=== PATIENT | male | born 1940 | race Caucasian/White ===

== ENCOUNTER 2016-12-21 13:39 | Inpatient (IN) | payer MEDICARE ==
[~2016-12-21] VITALS: Ht 175.3 cm; Wt 88.5 kg
[~2016-12-21 13:39] MED LIST: AMLO5TAB2 PO; ASPI-586 PO; ENAL10TA PO; FISH1CAP15 PO; METF500T4 PO; METO100T2 PO; MULT-63 PO; OMEP20CA12 PO; SIMV40TA4 PO
--- OUTSIDE RECORDS SUMMARY | 2016-12-21 13:45 | XMS REPORT | Continuity of Care Document ---
Author Author [facility] Organization [facility] Address Unknown Phone Unavailable Allergies Active Description Code Type Severity Reaction Onset Reported/Identified Relationship to Patient Clinical Status Yes nitroglycerin [id number] Drug Allergy Unknown N/A 02/09/2015 Yes Penicillins [id number] Drug Allergy Unknown N/A 02/09/2015 Medications Problems Date Dx Coded Attending Type Code Diagnosis Diagnosed By 02/09/2015 Ot 414.01 02/09/2015 Ot 433.10 02/09/2015 Ot 414.01 02/09/2015 Ot 433.10 02/10/2015 MONIQUE AN FACC, ALI FACP CCDS Ot 250.00 DIAB DENNIS WO COMPL, TYPE II OR UNSPEC TY 02/10/2015 MONIQUE AN FACC, ALI FACP CCDS Ot 272.4 HYPERLIPIDEMIA NEC/NOS 02/10/2015 MONIQUE AN FACC, ALI FACP CCDS Ot 305.1 TOBACCO USE DISORDER 02/10/2015 MONIQUE AN FACC, RALPH FACP CCDS Ot 401.9 HYPERTENSION NOS 02/10/2015 MONIQUE AN FACC, ALI FACP CCDS Ot 414.00 CORON ATHEROSCLER NOS TYPE VESSEL, NATIV 02/10/2015 MONIQUE AN FACC, ALI FACP CCDS Ot 433.10 CAROTID ARTERY OCCLUSION W O CEREBRAL IN 02/10/2015 MONIQUE AN FACC, RALPH FACP CCDS Ot 530.81 ESOPHAGEAL REFLUX 02/10/2015 MONIQUE AN FACC, RALPH FACP CCDS Ot 782.4 JAUNDICE NOS 02/10/2015 MONIQUE AN FACC, RALPH FACP CCDS Ot 786.59 CHEST PAIN NEC 02/10/2015 MONIQUE AN FACC, RALPH FACP CCDS Ot V45.81 AORTOCORONARY BYPASS 02/25/2016 Ot 414.01 CORONARY ATHEROSCLEROSIS OF [place] CORON 02/25/2016 Ot 433.10 CAROTID ARTERY OCCLUSION W O CEREBRAL IN 03/02/2016 EDUIN AN, KHANG Sierra Ot F17.200 NICOTINE DEPENDENCE, UNSPECIFIED, UNCOMP 03/02/2016 KHANG DENNY MD Ot R05 COUGH 03/22/2016 KHANG DENNY MD Ot F17.200 NICOTINE DEPENDENCE, UNSPECIFIED, UNCOMP 03/22/2016 KHANG DENNY MD Ot R05 COUGH 03/28/2016 KHANG DENNY MD Ot F17.200 NICOTINE DEPENDENCE, UNSPECIFIED, UNCOMP 03/28/2016 KHANG DENNY MD Ot R05 COUGH Procedures Results Encounters ACCT No. Visit Date/Time Discharge Status Pt. Type Provider Facility Loc./Unit Complaint [id number] 02/09/2015 14:22:00 2014 11:45:00 DIS Inpatient MONIQUE AN FACC, RALPH BOX CCDS [facility] CSD CHEST PAIN HYPERTENSIVE URGENCY [id number] 02/25/2016 09:32:00 ACT Outpatient KHANG DENNY MD [facility] RAD CHRONIC SMOKER/COUGH [id number] 02/09/2015 14:22:00 Document Registration [id number] 01/03/2011 12:44:00 Document Registration
[2016-12-21] MEDS ORDERED: ASPIRIN 81 MG CHEW (CHILDREN'S ASA) ONE (13:58)
[2016-12-21] MEDS ORDERED: morphine INJ 10 MG/ML 1ML (SYR OR VIAL) IVP STA (14:13)
[2016-12-21] MEDS ORDERED: ASPIRIN 81 MG CHEW (CHILDREN'S ASA) PO ONE (14:15)
--- NOTE | 2016-12-21 14:18 | ED Chest Pain ---
General Chief Complaint: Chest Pain Stated Complaint: CHEST PAIN Source: patient History of Present Illness Time seen by provider: 14:00 Initial Comments PT ARRIVES VIA POV FROM HOME C/O MID CHEST PAIN SINCE 11:30 TODAY, BUT HAS BEEN WORSE SINCE NOON PAIN BEGAN WHILE SITTING, AND WAXES AND WANES BUT NEVER GOES AWAY COMPLETELY PAIN WAS 7/10 EARLIER, IS 2 1/2 / 10 NOW. NO SHORTNESS OF BREATH NO PALPITATIONS NO NAUSEA/VOMITING NO SWELLING IN LEGS/ FEET OR PAIN IN CALVES + SWEATS DID TAKE A 4 HOUR CAR RIDE TO [place] A COUPLE OF WEEKS AGO PT HAS HISTORY OF 5 VESSEL CABG SEVERAL YEARS AGO LAST STRESS TEST OVER A YEAR AGO PCP: DR. DENNY-IN PROCESS OF SWITCHING TO DR. CARTER DIRECTOR OF CLINICAL APPLICATIONS: DR. AMAYA Allergies and Home Medications Allergies Coded Allergies: Penicillins (Verified Allergy, Unknown, 02/09/15) nitroglycerin (Verified Allergy, Unknown, 02/09/15) Home Medications Amlodipine Besylate 5 Mg Tablet, 5 MG PO DAILY, #90 (Reported) Aspirin 81 Mg Tablet.dr, 81 MG PO HS, (Reported) Enalapril Maleate 10 Mg Tablet, 10 MG PO BID, #60 (Reported) Fish Oil/Dha/Epa 1 Each Capsule, 1,200 MG PO BID, (Reported) Metformin HCl 500 Mg Tablet, 500 MG PO BID, #180 (Reported) Metoprolol Tartrate 100 Mg Tablet, 100 MG PO BID, #180 (Reported) Multivitamin 1 Each Tab.chew, 1 TAB PO DAILY, (Reported) Omeprazole 20 Mg Capsule.dr, 20 MG PO DAILY, #90 (Reported) Review of Systems Constitutional: see HPI, diaphoresis EENTM: No Symptoms Reported Respiratory: No Symptoms Reported Cardiovascular: See HPI, Chest Pain, Denies Edema, Denies Lightheadedness, Denies Palpitations, Denies Syncope Gastrointestinal: No Symptoms Reported Genitourinary: No Symptoms Reported Musculoskeletal: no symptoms reported Skin: no symptoms reported Psychiatric/Neurological: No Symptoms Reported Endocrine: No Symptoms Reported Hematologic/Lymphatic: No Symptoms Reported Past Ymhfdzz-Kxbvvh-Qhsabj Hx Patient Social History Alcohol Use: Regular Use (DAILY USE) Recreational Drug Use: No Smoking Status: Current Everyday Smoker (SMOKES CIGARS) Type Used: Cigars Immunizations Up To Date Tetanus Booster (TDap): Unknown Date of Pneumonia Vaccine: Mar 25, 2013 Surgeries HX Surgeries: Yes Surgeries: Cardiac, CABG, Gallbladder Respiratory Hx Respiratory Disorders: No Cardiovascular Hx Cardiac Disorders: Yes Cardiac Disorders: Coronary Artery Disease, Heart Attack, High Cholesterol, Hypertension Neurological Hx Neurological Disorders: No Reproductive System Hx Reproductive Disorders: No Sexually Transmitted Disease: Yes HIV/AIDS: No Genitourinary Hx Genitourinary Disorders: Yes (only has one kidney from ) Gastrointestinal Hx Gastrointestinal Disorders: Yes Gastrointestinal Disorders: Gastroesophageal Reflux Musculoskeletal Hx Musculoskeletal Disorders: No Endocrine Hx Endocrine Disorders: Yes Endocrine Disorders: Diabetes, Non-Insulin dep HEENT HX ENT Disorders: Yes HEENT Disorders: Cataract Loss of Vision: Denies Hearing Impairment: Denies Cancer Hx Cancer: No Psychosocial Hx Psychiatric Problems: No Integumentary HX Skin/Integumentary Disorder: No Blood Transfusions Hx Blood Disorders: No Adverse Reaction to a Blood Tr: No Family Medical History Family Medial History: FH: COPD (chronic obstructive pulmonary disease) 19 FATHER Myocardial infarction 19 MOTHER Physical Exam Vital Signs Vital Sign - Last 12Hours 12/21/16 12/21/16 13:39 14:00 Temp 98.2 Pulse 99 Resp 15 B/P (MAP) 192/108 Pulse Ox 94 O2 Delivery Room Air O2 Flow Rate 2.50 FiO2 97 Capillary Refill : General Appearance: No Apparent Distress, WD/WN, Other (REEKS OF TOBACCO) Neck: Full Range of Motion, Normal Inspection, Non Tender, Supple, No Carotid Bruit, No JVD Respiratory: Chest Non Tender, Normal Breath Sounds, No Accessory Muscle Use, No Respiratory Distress Cardiovascular: Regular Rate, Rhythm, No Edema, No JVD, No Murmur, Normal Peripheral Pulses Gastrointestinal: Normal Bowel Sounds, No Organomegaly, No Pulsatile Mass, Non Tender, Soft Extremity: Normal Capillary Refill, Normal Inspection, Normal Range of Motion, Non Tender, No Calf Tenderness, No Pedal Edema Neurologic/Psychiatric: Alert, Oriented x3, No Motor/Sensory Deficits, Normal Mood/Affect, 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 Norm as Tested Skin: Normal Color, Warm/Dry Progress/Results/Core Measures Results/Orders Lab Results Laboratory Tests Test 12/21/16 13:56 Range/Units White Blood Count 10.8 4.3-11.0 10^3/uL Red Blood Count 4.44 4.35-5.85 10^6/uL Hemoglobin 15.0 13.3-17.7 G/DL Hematocrit 41 40-54 % Mean Corpuscular Volume 92 80-99 FL Mean Corpuscular Hemoglobin 34 25-34 PG Mean Corpuscular Hemoglobin Concent 37 H 32-36 G/DL Red Cell Distribution Width 12.9 10.0-14.5 % Platelet Count 207 130-400 10^3/uL Mean Platelet Volume 10.2 7.4-10.4 FL Neutrophils (%) (Auto) 67 42-75 % Lymphocytes (%) (Auto) 23 12-44 % Monocytes (%) (Auto) 8 0-12 % Eosinophils (%) (Auto) 2 0-10 % Basophils (%) (Auto) 0 0-10 % Neutrophils # (Auto) 7.3 1.8-7.8 X 10^3 Lymphocytes # (Auto) 2.4 1.0-4.0 X 10^3 Monocytes # (Auto) 0.9 0.0-1.0 X 10^3 Eosinophils # (Auto) 0.2 0.0-0.3 10^3/uL Basophils # (Auto) 0.0 0.0-0.1 10^3/uL Prothrombin Time 12.7 12.2-14.7 SEC INR Comment 1.0 0.8-1.4 Activated Partial Thromboplast Time 30 24-35 SEC Sodium Level 138 135-145 MMOL/L Potassium Level 3.6 3.6-5.0 MMOL/L Chloride Level 101 98-107 MMOL/L Carbon Dioxide Level 25 21-32 MMOL/L Anion Gap 12 5-14 MMOL/L Blood Urea Nitrogen 13 7-18 MG/DL Creatinine 1.15 0.60-1.30 MG/DL Estimat Glomerular Filtration Rate > 60 BUN/Creatinine Ratio 11 Glucose Level 289 H 70-105 MG/DL Calcium Level 9.1 8.5-10.1 MG/DL Magnesium Level 1.4 L 1.8-2.4 MG/DL Total Bilirubin 1.3 H 0.1-1.0 MG/DL Aspartate Amino Transf (AST/SGOT) 43 H 5-34 U/L Alanine Aminotransferase (ALT/SGPT) 36 0-55 U/L Alkaline Phosphatase 76 40-136 U/L Total Creatine Kinase 83 30-200 U/L Creatine Kinase MB 1.7 <6.6 NG/ML Troponin I < 0.30 <0.30 NG/ML B-Type Natriuretic Peptide 93.4 <100.0 PG/ML Total Protein 7.6 6.4-8.2 GM/DL Albumin 4.2 3.2-4.5 GM/DL Amylase Level 50 25-125 U/L Lipase 38 8-78 U/L My Orders Orders - JUMANA CABAN DO Amylase (12/21/16 14:01) Cbc With Automated Diff (12/21/16 14:01) Comprehensive Metabolic Panel (12/21/16 14:01) Creatine Kinase (12/21/16 14:01) Creatine Kinase Mb (12/21/16 14:01) Lipase (12/21/16 14:01) Partial Thromboplastin Time (12/21/16 14:01) Protime With Inr (12/21/16 14:01) Troponin I (12/21/16 14:01) Chest 1 View, Ap/Pa Only (12/21/16 14:01) O2 (12/21/16 14:01) Ekg Tracing (12/21/16 14:01) Aspirin Chewable Tablet (Baby Aspirin Ch (12/21/16 14:15) BNP (12/21/16 14:01) Monitor-Rhythm Ecg Trace Only (12/21/16 14:01) Magnesium (12/21/16 14:01) Aspirin Chewable Tablet (Baby Aspirin Ch (12/21/16 13:58) Morphine Injection (Morphine Injection (12/21/16 14:13) Medications Given in ED Current Medications Medications Dose Ordered Sig/Denise Route Start Time Stop Time Status Last Admin Dose Admin Aspirin 324 mg ONCE ONCE PO 12/21/16 14:15 12/21/16 14:16 DC 12/21/16 14:04 324 MG Vital Signs/I&O Vital Sign - Last 12Hours 12/21/16 12/21/16 12/21/16 13:39 13:39 14:00 Temp 98.2 Pulse 99 Resp 15 B/P (MAP) 192/108 Pulse Ox 94 97 O2 Delivery Room Air Room Air Nasal Cannula O2 Flow Rate 2.50 FiO2 97 Progress Note : Progress Note PT STATES HE CANNOT TAKE NTG--STATES HE HAD IT BEFORE HIS CABG AND IT CAUSED HIM TO PASS OUT AND HE NEVER WANTS TO TAKE IT AGAIN GIVEN ASPIRIN AND MORPHINE 2 MG, AND IS PAIN-FREE. NO FURTHER SYMPTOMS FOR REMAINDER OF ER STAY ECG Initial ECG Impression Time: 13:48 Initial ECG Rate: 98 Initial ECG Rhythm: Normal Sinus (SLIGHT IVCD, PVC'S) Initial ECG Comparisson: Changed (SLIGHT IVCD NOW PRESENT) Diagnostic Imaging Comments CXR--CARDIOMEGALY, OTHERWISE NO ACUTE PROCESS--PER RADIOLOGIST REPORT @ 1457 Reviewed: Reviewed by Me Departure Communication Progress Notes 151--SPOKE WITH DR. CARTER, PT IS NOT ESTABLISHED WITH HER, AND SHE IS CURRENTLY NOT TAKING NEW PT'S 1511--MESSAGE TO DR. HERCULES 1516--SPOKE WITH DR. HERCULES, ACCEPTS PT FOR ADMIT 1516--PAGING DR. AMAYA Impression Impression: Primary Impression: Chest pain Additional Impression: Hyponatremia Disposition: ADMITTED INPATIENT Condition: Improved Decision to Admit Reason: Admit from ER (General) Decision to Admit/Date: Dec 21, 2016 Time/Decision to Admit Time: 15:15 Departure-Patient Inst. Referrals: KHNAG DENNY MD (PCP/Family) Primary Care Physician JUMANA CABAN DO Dec 21, 2016 14:18
[2016-12-21 14:19] LABS: BASOPHILS % (AUTO) 0 % (0-10); EOSINOPHILS # (AUTO) 0.2 10^3/uL (0.0-0.3); EOSINOPHILS % (AUTO) 2 % (0-10); LYMPHOCYTES # (AUTO) 2.4 X 10^3 (1.0-4.0); LYMPHOCYTES % (AUTO) 23 % (12-44); MEAN CORPUSCULAR HEMOGLOBIN 34 PG (25-34); MEAN CORPUSCULAR HGB CONC 37 G/DL (32-36); MEAN CORPUSCULAR VOLUME 92 FL (80-99); MEAN PLATELET VOLUME 10.2 FL (7.4-10.4); MONOCYTES # (AUTO) 0.9 X 10^3 (0.0-1.0); MONOCYTES % (AUTO) 8 % (0-12); NEUTROPHILS # (AUTO) 7.3 X 10^3 (1.8-7.8); NEUTROPHILS % (AUTO) 67 % (42-75); PLATELET COUNT 207 10^3/uL (130-400); RED BLOOD COUNT 4.44 10^6/uL (4.35-5.85); RED CELL DISTRIBUTION WIDTH 12.9 % (10.0-14.5); WHITE BLOOD COUNT 10.8 10^3/uL (4.3-11.0)
--- NOTE | 2016-12-21 14:30 | Diagnostic Imaging Report ---
INDICATION: Chest pain. COMPARISON: 02/25/2016. FINDINGS: Single frontal radiographic view of the chest was obtained and demonstrates mild to moderate cardiomegaly. Pulmonary vasculature is within normal limits. Lungs are clear and show no focal consolidations, large effusion, nor pneumothoraces. Sternotomy wires are noted. Bony structures show no gross acute abnormalities. IMPRESSION: 1. Cardiomegaly, but no evidence of overt failure. Dictated by: Dictated on workstation # [id number]
[2016-12-21 14:33] LABS: PROTHROMBIN TIME PATIENT 12.7 SEC (12.2-14.7)
[2016-12-21 14:46] LABS: ALANINE AMINOTRANSFERASE 36 U/L (0-55); ALBUMIN 4.2 GM/DL (3.2-4.5); AMYLASE 50 U/L (25-125); ANION GAP 12 MMOL/L (5-14); ASPARTATE AMINO TRANSFERASE 43 U/L (5-34); BILIRUBIN,TOTAL 1.3 MG/DL (0.1-1.0); BLOOD UREA NITROGEN 13 MG/DL (7-18); BUN/CREATININE RATIO 11; CALCIUM 9.1 MG/DL (8.5-10.1); CARBON DIOXIDE 25 MMOL/L (21-32); CHLORIDE 101 MMOL/L (98-107); CREATINE KINASE 83 U/L (30-200); CREATININE SERUM 1.15 MG/DL (0.60-1.30); GFR ESTIMATED > 60; GLUCOSE 289 MG/DL (70-105); LIPASE 38 U/L (8-78); MAGNESIUM 1.4 MG/DL (1.8-2.4); POTASSIUM 3.6 MMOL/L (3.6-5.0); SODIUM 138 MMOL/L (135-145); TOTAL PROTEIN 7.6 GM/DL (6.4-8.2)
[2016-12-21 14:54] LABS: TROPONIN I < 0.30 NG/ML (<0.30)
--- OUTSIDE RECORDS SUMMARY | 2016-12-21 15:44 | XMS REPORT | Continuity of Care Document ---
Author Author [facility] Organization [facility] Address Unknown Phone Unavailable Allergies Active Description Code Type Severity Reaction Onset Reported/Identified Relationship to Patient Clinical Status Yes nitroglycerin [id number] Drug Allergy Unknown N/A 02/09/2015 Yes Penicillins [id number] Drug Allergy Unknown N/A 02/09/2015 Medications Problems [...] FACP CCDS Ot 401.9 HYPERTENSION NOS 02/10/2015 OMNIQUE AN FACC, ALI FACP CCDS Ot 414.00 [...] BYPASS 02/25/2016 Ot 414.01 CORONARY ATHEROSCLEROSIS OF [place] CORON 02/25/2016 Ot 433.10 CAROTID ARTERY OCCLUSION [...] Status Pt. Type Provider Facility Loc./Unit Complaint [id number] 02/09/2015 14:22:00 2014 11:45:00 DIS Inpatient MONIQUE AN FACC, RALPH BOX CCDS [facility] CSD CHEST PAIN HYPERTENSIVE URGENCY [id number] 02/25/2016 09:32:00 ACT Outpatient KHANG DENNY MD [facility] RAD CHRONIC SMOKER/COUGH [id number] 02/09/2015 14:22:00 Document Registration [id number] 01/03/2011 12:44:00 Document Registration
[2016-12-21] MEDS: MAGNESIUM 1 GM/100 ML IVPB 100 ML IV SCH ×2 (16:03→18:38)
[2016-12-21] MEDS ORDERED: morphine INJ 4 MG/ML 1 ML (VIAL/SYRINGE) IV PRN (17:15)
[2016-12-21] MEDS ORDERED: CATHETER FLUSH 10 ML SYR IV PRN (17:15)
[2016-12-21 17:45] VITALS: BP 117/103
[2016-12-21] MEDS ORDERED: MAGNESIUM 1 GM/100 ML IVPB 100 ML IV ONE (18:31)
[2016-12-21] MEDS ORDERED: ATOR20TA66 PO (18:44)
[2016-12-21] MEDS ORDERED: PATIENT MAY USE OWN MEDS, ALL MC SCH (19:00)
[2016-12-21 20:00] VITALS: BP 168/88
[2016-12-21] MEDS: PANTOPRAZOLE 20 MG TABLET (PROTONIX) PO SCH (20:35)
[2016-12-21] MEDS ORDERED: ASPIRIN E.C. 81 MG (ECOTRIN) TAB PO SCH (21:00)
[2016-12-21] MEDS ORDERED: ATORVASTATIN 20 MG (LIPITOR) TABLET PO SCH (21:00)
[2016-12-21] MEDS: Metoprolol Tartrate 100 MG PO SCH (21:06)
[2016-12-21] MEDS: ENALAPRIL 10 MG (VASOTEC) TAB PO SCH (21:07)
[2016-12-21] MEDS: CATHETER FLUSH 10 ML SYR IV SCH (22:42)
[2016-12-22] VITALS (14 sets, daily range): BP systolic 136–170; BP diastolic 59–90
[2016-12-22 03:50] LABS: BASOPHILS % (AUTO) 0 % (0-10); EOSINOPHILS # (AUTO) 0.3 10^3/uL (0.0-0.3); EOSINOPHILS % (AUTO) 2 % (0-10); LYMPHOCYTES # (AUTO) 2.2 X 10^3 (1.0-4.0); LYMPHOCYTES % (AUTO) 22 % (12-44); MEAN CORPUSCULAR HEMOGLOBIN 34 PG (25-34); MEAN CORPUSCULAR HGB CONC 36 G/DL (32-36); MEAN CORPUSCULAR VOLUME 94 FL (80-99); MEAN PLATELET VOLUME 10.3 FL (7.4-10.4); MONOCYTES % (AUTO) 10 % (0-12); NEUTROPHILS # (AUTO) 6.7 X 10^3 (1.8-7.8); NEUTROPHILS % (AUTO) 66 % (42-75); PLATELET COUNT 180 10^3/uL (130-400); RED BLOOD COUNT 4.11 10^6/uL (4.35-5.85); RED CELL DISTRIBUTION WIDTH 12.8 % (10.0-14.5); WHITE BLOOD COUNT 10.2 10^3/uL (4.3-11.0)
[2016-12-22 04:16] LABS: ALANINE AMINOTRANSFERASE 30 U/L (0-55); ALBUMIN 3.5 GM/DL (3.2-4.5); ANION GAP 11 MMOL/L (5-14); ASPARTATE AMINO TRANSFERASE 36 U/L (5-34); BILIRUBIN,TOTAL 1.6 MG/DL (0.1-1.0); BLOOD UREA NITROGEN 11 MG/DL (7-18); BUN/CREATININE RATIO 12; CALCIUM 8.7 MG/DL (8.5-10.1); CARBON DIOXIDE 26 MMOL/L (21-32); CHLORIDE 104 MMOL/L (98-107); GFR ESTIMATED > 60; GLUCOSE 145 MG/DL (70-105); MAGNESIUM 1.8 MG/DL (1.8-2.4); POTASSIUM 3.6 MMOL/L (3.6-5.0); SODIUM 141 MMOL/L (135-145); TOTAL PROTEIN 6.4 GM/DL (6.4-8.2)
[2016-12-22] MEDS: CATHETER FLUSH 10 ML SYR IV SCH ×3 (06:41→20:14)
[2016-12-22] MEDS: PANTOPRAZOLE 20 MG TABLET (PROTONIX) PO SCH (06:42)
--- NOTE | 2016-12-22 08:05 | Pulmonary Consultation ---
History of Present Illness History of Present Illness Date of Consultation 12/22/16 08:00 Time Seen by Provider: 08:00 Date of Admission History of Present Illness 75yo presented to ED secondary to CP 01/01. Denies SOB, palpitations. No N/V. Labs and CXR reviewed. No signs PNA. Troponin and BNP negative. Denies lung dx. No productive cough. im consulted for pulmonary management. Allergies and Home Medications Allergies Coded Allergies: Penicillins (Verified Allergy, Unknown, 02/09/15) nitroglycerin (Verified Allergy, Unknown, 02/09/15) Home Medications Amlodipine Besylate 5 Mg Tablet, 5 MG PO DAILY, #90 (Reported) Aspirin 81 Mg Tablet.dr, 81 MG PO HS, (Reported) Atorvastatin Calcium 20 Mg Tablet, 20 MG PO Q48H, (Reported) Enalapril Maleate 10 Mg Tablet, 10 MG PO BID, #60 (Reported) Fish Oil/Dha/Epa 1 Each Capsule, 1,200 MG PO BID, (Reported) Metformin HCl 500 Mg Tablet, 500 MG PO BID, #180 (Reported) Metoprolol Tartrate 100 Mg Tablet, 100 MG PO BID, #180 (Reported) Multivitamin 1 Each Tab.chew, 1 TAB PO DAILY, (Reported) Omeprazole 20 Mg Capsule.dr, 20 MG PO BID, #90 (Reported) Past Tbpyjwq-Jolokx-Hetubm Hx Patient Social History Alcohol Use: Regular Use (DAILY USE) Recreational Drug Use: No Smoking Status: Current Everyday Smoker (SMOKES CIGARS) Type Used: Cigars 2nd Hand Smoke Exposure: Yes Recent Foreign Travel: No Contact w/Someone Who Travel: No Recent Infectious Disease Expo: No Recent Hopitalizations: No Physical Abuse Screen: No Sexual Abuse: No Immunizations Up To Date Tetanus Booster (TDap): Unknown PED Vaccines UTD: No Date of Pneumonia Vaccine: Dec 21, 2014 Seasonal Allergies Seasonal Allergies: No Surgeries HX Surgeries: Yes Surgeries: Cardiac, CABG, Gallbladder Respiratory Hx Respiratory Disorders: No Cardiovascular Hx Cardiac Disorders: Yes Cardiac Disorders: Coronary Artery Disease, Heart Attack, High Cholesterol, Hypertension Neurological Hx Neurological Disorders: No Reproductive System Hx Reproductive Disorders: No Sexually Transmitted Disease: Yes HIV/AIDS: No Genitourinary Hx Genitourinary Disorders: Yes (only has one kidney from ) Gastrointestinal Hx Gastrointestinal Disorders: Yes Gastrointestinal Disorders: Gastroesophageal Reflux Musculoskeletal Hx Musculoskeletal Disorders: No Endocrine Hx Endocrine Disorders: Yes Endocrine Disorders: Diabetes, Non-Insulin dep HEENT HX ENT Disorders: Yes HEENT Disorders: Cataract Loss of Vision: Denies Hearing Impairment: Denies Cancer Hx Cancer: No Psychosocial Hx Psychiatric Problems: No Integumentary HX Skin/Integumentary Disorder: No Blood Transfusions Hx Blood Disorders: No Adverse Reaction to a Blood Tr: No Family Medical History Family Medial History: FH: COPD (chronic obstructive pulmonary disease) 19 FATHER Myocardial infarction 19 MOTHER Review of Systems Constitutional: Malaise, Weakness, No: Chills, Fever, Other, Sweats Exam Exam Vital Signs Date Time Temp Pulse Resp B/P (MAP) Pulse Ox O2 Delivery O2 Flow Rate FiO2 12/22/16 04:00 93 Room Air 12/22/16 04:00 98.4 59 16 162/75 93 Room Air 12/22/16 01:00 53 12/22/16 00:00 98.3 55 16 156/74 97 Room Air 12/22/16 00:00 97 Room Air 12/21/16 20:00 95 Room Air 12/21/16 20:00 98.5 66 18 168/88 95 Room Air 12/21/16 19:00 64 12/21/16 17:45 117/103 12/21/16 17:20 98.0 Room Air 12/21/16 16:36 98.2 85 15 97 Room Air 2.50 12/21/16 14:00 97 Nasal Cannula 2.50 97 12/21/16 13:39 98.2 99 15 192/108 94 Room Air 12/21/16 13:39 Room Air I & O 12/22/16 07:00 Intake Total 1095 ml Balance 1095 ml General Appearance: No Apparent Distress, WD/WN, Other (REEKS OF TOBACCO) Neck: Full Range of Motion, Normal Inspection, Non Tender, Supple, No Carotid Bruit, No JVD Respiratory: Chest Non Tender, Normal Breath Sounds, No Accessory Muscle Use, No Respiratory Distress Cardiovascular: Regular Rate, Rhythm, No Edema, No JVD, No Murmur, Normal Peripheral Pulses Capillary Refill: Less Than 3 Seconds Extremity: Normal Capillary Refill, Normal Inspection, Normal Range of Motion, Non Tender, No Calf Tenderness, No Pedal Edema Neurologic/Psychiatric: Alert, Oriented x3, No Motor/Sensory Deficits, Normal 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
[2016-12-22] MEDS: ENALAPRIL 10 MG (VASOTEC) TAB PO SCH ×2 (08:21→20:12)
[2016-12-22] MEDS: Metoprolol Tartrate 100 MG PO SCH ×2 (08:21→20:13)
[2016-12-22] MEDS ORDERED: ASPIRIN E.C. 325 MG (ECOTRIN) TABLET PO SCH (09:00)
[2016-12-22] MEDS: amLODIPine 5 MG (NORVASC) TAB PO SCH (10:33)
[2016-12-22] MEDS ORDERED: CLOPIDOGREL 300 MG (PLAVIX) TABLET PO NR (11:00)
--- NOTE | 2016-12-22 11:20 | History & Physical-Hospitalist ---
HPI History of Present Illness: HPI/Chief Complaint CC: Chest pain HPI: This is a [address] Mcgovern's with a past hx of bypass 17 yrs ago who presented to the ER with chest pain. 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 Carmen is coming to see the pt this am and will likely perform cath Patient Interview: Pt confirms bypass [address] Pt [address] Broderick as his Supply Analyst. Pt denies chest pain since arrival Labs discussed. Troponin is elevated, everything else okay Dr. Carmen not seen pt yet - he will be leading treatment in this case. 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 Pt does not wear O2 at home or a breathing machine at night Pt was informed that he will have more tests today Pt is NPO for now and curious when he can eat. Plan: NPO Monitor Troponin Scribed by Coreen Steele under the direct supervision of Dr. Hercules. Source: patient, family Exam Limitations: no limitations Date Seen 12/22/16 Time Seen by Provider: 09:30 Attending Physician Elia Mcgovern MD PCP Elia Mcgovern MD Referring Physician Date of Admission Dec 21, 2016 at 15:39 Home Medications & Allergies Home Medications Reviewed patient Home Medication Reconciliation Form Allergies Allergies Coded Allergies Penicillins (Verified Allergy, Unknown, 02/09/15) nitroglycerin (Verified Allergy, Unknown, 02/09/15) Past Lfxsnmv-Nclslz-Viwhai Hx Patient Social History Marrital Status: Employed/Student: retired Alcohol Use: Regular Use (DAILY USE) Recreational Drug Use: No Smoking Status: Current Everyday Smoker (SMOKES CIGARS) Type Used: Cigars 2nd Hand Smoke Exposure: Yes Physical Abuse Screen: No Sexual Abuse: No Recent Foreign Travel: No Contact w/other who traveled: No Recent Hopitalizations: No Recent Infectious Disease Expo: No Immunizations Up To Date Tetanus Booster (TDap): Unknown Date of Pneumonia Vaccine: Dec 21, 2014 Seasonal Allergies Seasonal Allergies: No Surgeries HX Surgeries: Yes Surgeries: Cardiac, CABG, Gallbladder Respiratory Hx Respiratory Disorders: No Cardiovascular Hx Cardiovascular Disorders: Yes Cardiac Disorders: Coronary Artery Disease, Heart Attack, High Cholesterol, Hypertension Neurological Hx Neurological Disorders: No Reproductive System Hx Reproductive Disorders: No Sexually Transmitted Disease: Yes HIV/AIDS: No Genitourinary Hx Genitourinary Disorders: Yes (only has one kidney from ) Gastrointestinal Hx Gastrointestinal Disorders: Yes Gastrointestinal Disorders: Gastroesophageal Reflux Musculoskeletal Hx Musculoskeletal Disorders: No Endocrine Hx Endocrine Disorders: Yes Endocrine Disorders: Diabetes, Non-Insulin dep HEENT HX ENT Disorders: Yes HEENT Disorders: Cataract Loss of Vision: Denies Hearing Impairment: Denies Cancer Hx Cancer: No Psychosocial Hx Psychiatric Problems: No Integumentary HX Skin/Integumentary Disorder: No Blood Transfusions Hx Blood Disorders: No Adverse Reaction to a Blood Tr: No Family Medical History Family Hx: FH: COPD (chronic obstructive pulmonary disease) 19 FATHER Myocardial infarction 19 MOTHER Review of Systems Constitutional: see HPI EENTM: no symptoms reported Respiratory: no symptoms reported Cardiovascular: chest pain Gastrointestinal: nausea Genitourinary: no symptoms reported Musculoskeletal: no symptoms reported Skin: no symptoms reported Psychiatric/Neurological: No Symptoms Reported All Other Systems Reviewed Negative Unless Noted: Yes Physical Exam Physical Exam Vital Signs Vital Sign - Last 12Hours 12/21/16 12/21/16 13:39 14:00 Temp 98.2 Pulse 99 Resp 15 B/P (MAP) 192/108 Pulse Ox 94 O2 Delivery Room Air O2 Flow Rate 2.50 FiO2 97 Capillary Refill : Less Than 3 Seconds General Appearance: No Apparent Distress, WD/WN, Chronically ill, Obese Eyes: Bilateral Eye Normal Inspection, Bilateral Eye PERRL HEENT: PERRL/EOMI, Normal ENT Inspection, Pharynx Normal Neck: Full Range of Motion, Normal Inspection, Non Tender, Supple, Carotid Bruit Respiratory: Chest Non Tender, Lungs Clear, Normal Breath Sounds, No Accessory Muscle Use, No Respiratory Distress Cardiovascular: Regular Rate, Rhythm, No Edema, No Gallop, No JVD, No Murmur, Normal Peripheral Pulses Gastrointestinal: Normal Bowel Sounds, No Organomegaly, No Pulsatile Mass, Non Tender, Soft Back: Normal Inspection, No CVA Tenderness, No Vertebral Tenderness Extremity: Normal Capillary Refill, Normal Inspection, Normal Range of Motion, Non Tender, No Calf Tenderness, No Pedal Edema Neurologic/Psychiatric: Alert, Oriented x3, No Motor/Sensory Deficits, Normal Mood/Affect Skin: Normal Color, Warm/Dry Lymphatic: No Adenopathy Results Results/Procedures Lab Laboratory Tests 12/21/16 13:56 12/22/16 03:23 Assessment/Plan Admission Diagnosis Assessment: NSTMI HTN HLP Assessment and Plan Plan: Cardiac cath Monitor closely Clinical Quality Measures DVT/VTE Risk/Contraindication: Risk Factor Score Per Nursin RFS Level Per Nursing on Admit: 3=High CODI HERCULES DO Dec 22, 2016 11:20
[2016-12-22] MEDS ORDERED: NS IV 1000 ML 1,000 ML ONE (11:37)
[2016-12-22] MEDS ORDERED: HEParin (CATH LAB) 2,000 ML IV ONE (11:37)
--- NOTE | 2016-12-22 12:15 | Consultation-Cardiology ---
HPI-Cardiology Cardiology Consultation: Date of Consultation 12/22/16 Date of Admission Attending Physician Elia Mcgovern MD Admitting Physician Elia Mcgovern MD Consulting Physician Nila CARMEN MD HPI: Time Seen by Provider: 10:00 Chief Complaint: chest pain/indigestion This is a 75 year old gentleman with history of CAD and CABG x 5 grafts 17 years ago; he is a patient of Dr Broderick. He also has history of hypertension, diabetes and hyperlipidemia. According to the patient Dr. Broderick did a stress test couple of years ago which was negative. He presents with lower chest discomfort/indigestion that lasted for one hour. It was associated with right shoulder discomfort and sweating. Intensity was at least moderate. There was no exacerbating or relieving factors. Review of Systems-Cardiology Review of Systems Date Seen by Provider: Dec 22, 2016 Time Seen by Provider: 10:00 Constitutional: As described under HPI, No no symptoms reported, No chills, No fever, No lightheadedness, No malaise, No tiredness, No weight loss, No weight gain, No other Eyes: No As described under HPI, No no symptoms reported, No blindness, No blurred vision, No contact lenses, No drainage, No decreased acuity, No foreign body sensation, No glasses, No inflammation, No pain, No photophobia, No previous injury, No shadows, No tunnel vision, No other, No vision change Ears/Nose/Throat: No As described under HPI, No no symptoms reported, No chronic hearing loss, No epistaxis, No ear discharge, No ear pain, No loose teeth, No mouth pain, No mouth swelling, No nasal drainage, No nose pain, No recent hearing loss, No throat pain, No throat swelling, No ulcerations, No other Respiratory: No no symptoms reported, No As described under HPI, No cough, No orthopnea, No shortness of breath, No SOB with excertion, No SOB at rest, No stridor, No wheezing, No other Cardiovascular: chest pain Gastrointestinal: No no symptoms reported, No As described under HPI, No abdomen distended, No abdominal pain, No blood streaked bowels, No constipation , No diarrhea, No difficulty swallowing, No nausea, No poor appetite, No poor fluid intake, No rectal bleeding, No vomiting, No other, No nausea/vomiting/ diarrhea, No stool coloration changes Genitourinary: No no symptoms reported, No As described under HPI, No burning, No dysuria, No discharge, No frequency, No flank pain, No hematuria, No incontinence, No pain, No urgency, No other, No urine frequency changes, No urine coloration changes Musculoskeletal: No no symptoms reported, No As describe under HPI, No back pain, No gout, No joint pain, No joint swelling, No muscle pain, No muscle stiffness, No neck pain, No other Skin: No no symptoms reported, No As described under HPI, No change in color, No change in hair/nails, No dryness, No lesions, No lumps, No rash, No other, No skin related problems, No ulcerations, No rash on exposed areas, No ulcerations on exposed areas Psychiatric/Neurological: No As described under HPI, No anxiety, No depression , No emotional problems, No focal weakness, No headache, No no symptoms reported , No numbness, No other, No pre-existing deficit, No seizure, No syncope, No tingling, No tremors, No weakness POZ-[id number]-Rkzmiq Hx Patient Social History Alcohol Use: Regular Use (DAILY USE) Recreational Drug Use: No Smoking Status: Current Everyday Smoker (SMOKES CIGARS) Type Used: Cigars 2nd Hand Smoke Exposure: Yes Recent Foreign Travel: No Recent Infectious Disease Expo: No Hospitalization with Isolation: Denies Physical Abuse Screen: No Sexual Abuse: No Immunizations Up To Date Tetanus Booster (TDap): Unknown Date of Pneumonia Vaccine: Dec 21, 2014 Past Medical History PMH As described under Assessment. Family Medical History Family Medical History: Family h/o CAD and CVA in his mother and father No premature CAD or SCD Family History: FH: COPD (chronic obstructive pulmonary disease) 19 FATHER Myocardial infarction 19 MOTHER Allergies and Home Medications Allergies Coded Allergies: Penicillins (Verified Allergy, Unknown, 02/09/15) nitroglycerin (Verified Allergy, Unknown, 02/09/15) Home Medications Amlodipine Besylate 5 Mg Tablet, 5 MG PO DAILY, (Reported) Aspirin 81 Mg Tablet.dr, 81 MG PO HS, (Reported) Atorvastatin Calcium 20 Mg Tablet, 20 MG PO Q48H, (Reported) Enalapril Maleate 10 Mg Tablet, 10 MG PO BID, (Reported) Fish Oil/Dha/Epa 1 Each Capsule, 1,200 MG PO BID, (Reported) Metformin HCl 500 Mg Tablet, 500 MG PO BID, (Reported) Metoprolol Tartrate 100 Mg Tablet, 100 MG PO BID, (Reported) Multivitamin 1 Each Tab.chew, 1 TAB PO DAILY, (Reported) Omeprazole 20 Mg Capsule.dr, 20 MG PO BID, (Reported) Physical Exam-Cardiology Physical Exam Vital Signs/I&O Vital Sign - Last 12Hours 12/22/16 12/22/16 12/22/16 12/22/16 01:00 04:00 04:00 07:00 Temp 98.4 Pulse 53 59 64 Resp 16 B/P (MAP) 162/75 Pulse Ox 93 93 O2 Delivery Room Air Room Air 12/22/16 08:00 Temp 98.3 Pulse 55 Resp 16 B/P (MAP) 166/86 Pulse Ox 95 O2 Delivery Room Air Intake and Output 12/22/16 00:00 Intake Total 695 ml Balance 695 ml Capillary Refill : Less Than 3 Seconds Constitutional: No appears stated age, No AAO x 3, No apparent distress, No PERRL, No well-developed, No well-nourished, No other HEENT: No PERRL, No normal ENT inspection, No TMs normal, No pharynx normal, No scleral icterus (R), No scleral icterus (L), No pale conjunctivae (R), No pale conjunctivae (L), No photophobia, No TM abnormal (R), No TM abnormal (L), No pharyngeal erythema, No tonsillar exudate, No other, No discharge, No EOMI, No hearing is well preserved, No hard of hearing, No oral hygience is good, No ulceration, No xanthelasmas are seen Neck: No non-tender, No full range of motion, No supple, No normal inspection, No carotid bruit, No limited range of motion, No lymphadenopathy (R), No lymphadenopathy (L), No tender lateral, No tender midline, No thyromegaly, No other, No carotid pulses are 2 + bilaterally, No with good upstrokes Respiratory: No accessory muscle use, No respiratory distress, No chest tender , No chest expansion is symmetric, No chest is bilaterally symmetric, No lungs clear to percussion, No lungs clear to auscultation, No crackles, No rhonchi, No rales, No stridor, No wheezing, No pleural rub, No other Cardiovascular: regular rate-rhythm, S1 and S2 Gastrointestinal: No tender, No soft, No round, No distended, No pulsatile mass , No organomegaly, No guarding, No rebound, No tenderness, No hernia, No mass, No audible bowel sounds, No abnormal bowel sounds, No abdominal bruits, No spleenomegaly, No other Rectal: deferred Extremities: No normal range of motion, No non-tender, No normal inspection, No pedal edema, No calf tenderness, No normal capillary refill, No pelvis stable , No calf tenderness, No inflammation, No pedal edema, No slow capillary refill , No swelling, No other, No abrasion, No clubbing, No cyanosis, No ecchymosis, No laceration, No no lower extremity edema bilateral, No significant edema, No tenderness, No wound Neurologic/Psychiatric: No chief deputy clerk/bailiff II-XII nml as tested, No no motor/sensory deficits, No alert, No normal mood/affect, No oriented x 3, No abnormal cerebellar tests, No abnormal chief deputy clerk/bailiff II-XII, No abnormal gait, No aphasia, No EOM palsy, No facial droop, No motor weakness, No sensory deficit, No depressed affect, No disoriented x 3, No other, No grossly intact, No power is 5/5 both on sides Skin: No normal color, No warm/dry, No cyanosis, No cool, No diaphoresis, No damp, No ecchymosis, No jaundice, No mottled, No pallor, No rash, No tattoos/ piercings, No ulcerations, No rash on exposed areas, No ulcerations on exposed areas, No other Data Review Labs Laboratory Tests 12/21/16 13:56: White Blood Count 10.8, Red Blood Count 4.44, Hemoglobin 15.0, Hematocrit 41, Mean Corpuscular Volume 92, Mean Corpuscular Hemoglobin 34, Mean Corpuscular Hemoglobin Concent 37H, Red Cell Distribution Width 12.9, Platelet Count 207, Mean Platelet Volume 10.2, Neutrophils (%) (Auto) 67, Lymphocytes (%) (Auto) 23 , Monocytes (%) (Auto) 8, Eosinophils (%) (Auto) 2, Basophils (%) (Auto) 0, Neutrophils # (Auto) 7.3, Lymphocytes # (Auto) 2.4, Monocytes # (Auto) 0.9, Eosinophils # (Auto) 0.2, Basophils # (Auto) 0.0, Prothrombin Time 12.7, INR Comment 1.0, Activated Partial Thromboplast Time 30, Sodium Level 138, Potassium Level 3.6, Chloride Level 101, Carbon Dioxide Level 25, Anion Gap 12, Blood Urea Nitrogen 13, Creatinine 1.15, Estimat Glomerular Filtration Rate > 60 , BUN/Creatinine Ratio 11, Glucose Level 289H, Calcium Level 9.1, Magnesium Level 1.4L, Total Bilirubin 1.3H, Aspartate Amino Transf (AST/SGOT) 43H, Alanine Aminotransferase (ALT/SGPT) 36, Alkaline Phosphatase 76, Total Creatine Kinase 83, Creatine Kinase MB 1.7, Troponin I < 0.30, B-Type Natriuretic Peptide 93.4, Total Protein 7.6, Albumin 4.2, Amylase Level 50, Lipase 38 12/22/16 03:23: White Blood Count 10.2, Red Blood Count 4.11L, Hemoglobin 13.9, Hematocrit 39L, Mean Corpuscular Volume 94, Mean Corpuscular Hemoglobin 34, Mean Corpuscular Hemoglobin Concent 36, Red Cell Distribution Width 12.8, Platelet Count 180, Mean Platelet Volume 10.3, Neutrophils (%) (Auto) 66, Lymphocytes (%) (Auto) 22 , Monocytes (%) (Auto) 10, Eosinophils (%) (Auto) 2, Basophils (%) (Auto) 0, Neutrophils # (Auto) 6.7, Lymphocytes # (Auto) 2.2, Monocytes # (Auto) 1.0, Eosinophils # (Auto) 0.3, Basophils # (Auto) 0.0, Sodium Level 141, Potassium Level 3.6, Chloride Level 104, Carbon Dioxide Level 26, Anion Gap 11, Blood Urea Nitrogen 11, Creatinine 0.90, Estimat Glomerular Filtration Rate > 60, BUN/ Creatinine Ratio 12, Glucose Level 145H, Calcium Level 8.7, Magnesium Level 1.8 , Total Bilirubin 1.6H, Aspartate Amino Transf (AST/SGOT) 36H, Alanine Aminotransferase (ALT/SGPT) 30, Alkaline Phosphatase 49, Total Protein 6.4, Albumin 3.5 12/22/16 08:10: Troponin I 0.93*H A/P-Cardiology Assessment/Admission Diagnosis Non-STEMI, Coronary artery disease status post CABG, Diabetes, Hypertension, Hyperlipidemia Plan History of coronary artery disease, prolonged chest discomfort, positive cardiac enzymes. Working diagnosis is non-STEMI. Coronary angiography is recommended. All the risks and complication were explained in detail. This included risk of bleeding, vascular damage, stroke, OK and even . Once the patient and family accepted the risks and complication informed consent was signed. Plavix bolus will be given. Angiography will be performed later today. I have requested all records. by history: Coronary artery disease with a history of coronary artery bypass surgery consisting of left internal mammary artery graft to left anterior descending artery, saphenous vein graft to right coronary artery, saphenous vein graft to diagonal artery, saphenous vein graft to first obtuse marginal artery, saphenous vein graft to second obtuse marginal artery in 1999. Myocardial perfusion imaging of 819/15 does not indicate any significant myocardial ischemia or infarction and ventricular function is normal with an ejection fraction of 53%. Thank you for your consultation. Please call me if you have any questions. Ankit Carmen MD, FACP, FACC, FSCAI, FHRS, CCDS Interventional Cardiology Cardiac Electrophysiology Vascular Medicine and Endovascular Interventions Clinical Quality Measures DVT/VTE Risk/Contraindication: Risk Factor Score Per Nursin RFS Level Per Nursing on Admit: 3=High Nila CARMEN MD Dec 22, 2016 12:15
[2016-12-22] MEDS ORDERED: diphenhydrAMINE 50 MG/ML INJ (BENADRYL) ONE (12:19)
[2016-12-22] MEDS ORDERED: fentaNYL INJECTION 100 MCG/2 ML AMP ONE (12:19)
[2016-12-22] MEDS ORDERED: MIDAZOLAM 5 MG/5 ML (VERSED) VIAL ONE (12:19)
[2016-12-22] MEDS ORDERED: NS IV 1000 ML 1,000 ML IV SCH (13:15)
[2016-12-22] MEDS ORDERED: HEParin 1000 UNIT/ML (10ML VIAL) FOR BOLUS ONE (13:29)
--- NOTE | 2016-12-22 14:06 | Cardiac Procedure Note-CS/ASA ---
Pre-Procedure Note Pre-Op Procedure Note H&P Reviewed The H&P was reviewed, patient examined and no changes noted. Date H&P Reviewed: Dec 22, 2016 Time H&P Reviewed: 10:00 Conscious Sedation Pre-Proced Time Reviewed: 10:00 ASA Class: 3 Airway Mallampati Classification: ([place] appropriate class) I. II. III, IV Lungs Heart ASA score ASA 1: a normal healthy patient ASA 2: a patient with a mild systemic disease (mid diabetes, controlled hypertension, obesity ASA 3: a patient with a severe systemic disease that limits activity (angina , COPD, prior Myocardial infarction) ASA 4: a patient with an incapacitating disease that is a constant threat to life (CHF, renal failure) ASA 5: a moribund patient not expected to survive 24 hrs. (ruptured aneurysm) ASA 6: a declared brain patient whose organs are being harvested. For emergent operations, add the letter E after the classification Grade 1 Sedation Plan: Analgesia, Amnesia, Plan communicated to team members, Discussed options with patient/fam, Discussed risks with patient/fam Note The patient is an appropriate candidate to undergo the planned procedure, sedation, and anesthesia. The patient immediately re-assessed prior to indication. Nila STEVEN MD Dec 22, 2016 2:06 pm
--- NOTE | 2016-12-22 14:10 | Cardiology Post Procedure Note ---
Post-Procedure Note Physician (s)/Loader Unloader (s) Physician Nila STEVEN MD Pre-Procedure Diagnosis Pre-Procedure Diagnosis: NSTEMI Post-Procedure Note Procedure Start Date: Dec 22, 2016 Procedure Start Time: 13:00 Name of Procedure: Coronary angiography, LHC, Graft angiography, PCI with MELVI to LCX Findings/Procedure Note Patent HUBBARD to the LAD. Patent SVG to OM1 Patent SVG to PDA with severe distal anastomosis (1.5mm distal vessel). Occluded SVG to D1 Occluded SVG to OM2 Ione Vessels: Severe LAD, Severe hazy looking proximal LCX disease possibly acute. Occluded ostial RCA. PCI to proximal LCX with 2.5x22mm MELVI Flouro time: 14.6min Flouro dose: 2226 mgy Anesthesia Type: Conscious Sedation Estimated blood loss (mL): 20 Contrast Amount: 280 Post-Procedure Diagnosis Post-operative diagnosis: Severe LCX stenosis, treated successfully with MELVI Nila STEVEN MD Dec 22, 2016 2:10 pm
[2016-12-22] MEDS ORDERED: PATIENT MAY USE OWN MEDS, ALL PO SCH (14:15)
[2016-12-22] MEDS: NS IV 1000 ML 1,000 ML IV SCH ×2 (14:49→20:17)
[2016-12-22] MEDS: OMEPRAZOLE 20 MG (PriLOSEC) CAP NON-FORMULARY PO SCH (16:12)
[2016-12-23 04:45] LABS: MEAN PLATELET VOLUME 10.4 FL (7.4-10.4); RED BLOOD COUNT 4.46 10^6/uL (4.35-5.85); RED CELL DISTRIBUTION WIDTH 12.9 % (10.0-14.5); WHITE BLOOD COUNT 11.9 10^3/uL (4.3-11.0)
[2016-12-23 05:08] LABS: ANION GAP 15 MMOL/L (5-14); BLOOD UREA NITROGEN 11 MG/DL (7-18); BUN/CREATININE RATIO 10; CALCIUM 9.1 MG/DL (8.5-10.1); CARBON DIOXIDE 23 MMOL/L (21-32); CHLORIDE 102 MMOL/L (98-107); CHOLESTEROL 148 MG/DL (< 200); CREATININE SERUM 1.15 MG/DL (0.60-1.30); DIRECT LDL 78 MG/DL (1-129); GFR ESTIMATED > 60; GLUCOSE 160 MG/DL (70-105); POTASSIUM 3.6 MMOL/L (3.6-5.0); SODIUM 140 MMOL/L (135-145); TRIGLYCERIDES 152 MG/DL (<150); VLDL CHOLESTEROL 30 MG/DL (5-40)
[2016-12-23] MEDS: OMEPRAZOLE 20 MG (PriLOSEC) CAP NON-FORMULARY PO SCH (06:02)
[2016-12-23] MEDS: CATHETER FLUSH 10 ML SYR IV SCH (06:02)
[2016-12-23 08:00] VITALS: BP 179/93
[2016-12-23] MEDS: ENALAPRIL 10 MG (VASOTEC) TAB PO SCH (08:36)
[2016-12-23] MEDS: Metoprolol Tartrate 100 MG PO SCH (08:37)
[2016-12-23] MEDS: amLODIPine 5 MG (NORVASC) TAB PO SCH (08:44)
[2016-12-23] MEDS ORDERED: ASPIRIN E.C. 81 MG (ECOTRIN) TAB PO SCH (09:00)
[2016-12-23] MEDS ORDERED: CLOPIDOGREL 75 MG (PLAVIX) TABLET PO SCH (09:00)
[2016-12-23] MEDS: NS IV 1000 ML 1,000 ML IV SCH (10:26)
[2016-12-23 11:38] VITALS: BP 166/75
[2016-12-23] MEDS ORDERED: CLOP75TA28 PO (11:54)
--- NOTE | 2016-12-23 11:55 | Discharge Inst-Post CATH ---
Discharge Inst-CATH Post Cardiac Cath D/C Inst Follow Up/Plan follow up with Dr Broderick or Nella in 2-3 weeks CARDIAC CATH DISCHARGE INSTRUCTIONS *Hold Metformin for 48 hours post heart cath. ACTIVITY * Go Home directly and rest. * Limit activity of the leg (or wrist if it was used) for 7 days including aerobics, swimming, jogging, bicycling, etc. * Restrict stair-climbing for 7 days if possible, if not, climb up with your non -cath leg, then bring together on the same step. * Avoid lifting, pushing, pulling or excessive movement of the affected extremity for 7 days. * Customary sexual activity may be resumed after 2 days-use caution not to use a position that strains or causes pain to the affected extremity. * No driving for 24 hours. * NO SMOKING. * Avoid straining for bowel movements for 7 days. * Gentle walking on level ground is allowed. * Returning to work will depend on the type of procedure and the results. Your doctor will discuss this with you. CALL YOUR DOCTOR FOR ANY OF THE FOLLOWING: *If bleeding from the puncture site occurs- Apply gentle pressure to site with clean cloth and call your doctor or EMS. * If a knot or lump forms under the skin, increases in size, or causes pain. * If bruising appears to be worsening or moving further down your leg instead of disappearing. * Temperature above 101 F. CARE OF YOUR GROIN INCISION; * Bruising or purple discoloration of the skin near the puncture site is common. * You may shower only, no bathtub bathing for 5 days. Be careful to avoid slipping as your leg may feel stiff. * If a closure device was used on your femoral artery, please see the attached guide regarding care of the device and your leg. * REMOVE the dressing from your groin the next day after your procedure in the shower. CARE OF YOUR WRIST INCISION; * Bruising or purple discoloration of the skin near the puncture site is common. * You may shower. * DO NOT submerge wrist. * Remove dressing in 24 hours. Nila STEVEN MD Dec 23, 2016 11:55 am
--- NOTE | 2016-12-23 11:58 | Cardiology Discharge Summary ---
Diagnosis/Chief Complaint Date of Admission Dec 22, 2016 at 12:49 pm Date of Discharge December 23, 2016 Admission Diagnosis NSTEMI Final/Discharge Diagnosis PCI with MELVI to LCX Chief Complaint/HPI Chief Complaint/HPI This is a 75 year old gentleman with history of CAD and CABG x 5 grafts 17 years ago; he is a patient of Dr Broderick. He also has history of hypertension, diabetes and hyperlipidemia. According to the patient Dr. Broderick did a stress test couple of years ago which was negative. He presents with lower chest discomfort/indigestion that lasted for one hour. It was associated with right shoulder discomfort and sweating. Intensity was at least moderate. There was no exacerbating or relieving factors. Discharge Summary Procedures Coronary angiography, PCI to LCX with MELVI Discharge Physical Examination Chest- stable CVS - stable Groin normal , no bleed peripheral pulses palpable Hospital Course stable Pending Labs Laboratory Tests 12/23/16 03:56: White Blood Count 11.9, Red Blood Count 4.46, Hemoglobin 14.9, Hematocrit 42, Mean Corpuscular Volume 94, Mean Corpuscular Hemoglobin 33, Mean Corpuscular Hemoglobin Concent 35, Red Cell Distribution Width 12.9, Platelet Count 196, Mean Platelet Volume 10.4, Sodium Level 140, Potassium Level 3.6, Chloride Level 102, Carbon Dioxide Level 23, Anion Gap 15, Blood Urea Nitrogen 11, Creatinine 1.15, Estimat Glomerular Filtration Rate > 60, BUN/Creatinine Ratio 10, Glucose Level 160, Calcium Level 9.1, Triglycerides Level 152, Cholesterol Level 148, LDL Cholesterol Direct 78, VLDL Cholesterol 30, HDL Cholesterol 41 Discussion & Recommendations Discussion continue aspirin, plavix (1 year), lipitor, bb and sultana inhibitor. discharge took > 30 minutes. Follow up appt.: dr broderick or nella in 2-3 weeks Dicharge Diet: Cardiac Diet Activity as Tolerated: Yes Home Medications Reviewed patient Home Medication Reconciliation Form Discharge Home Medications: Reviewed and agree with Discharge Medication list on patient's Discharge Instruction sheet Condition at discharge stable Instructions to patient/family follow up with Dr Broderick or Nella in 2-3 weeks Clinical Quality Measures DVT/VTE Risk/Contraindication: Risk Factor Score Per Nursin RFS Level Per Nursing on Admit: 3=High Nila STEVEN MD Dec 23, 2016 11:57 am
--- NOTE | 2016-12-23 12:30 | Progress Note-Hospitalist ---
Progress Note HPI/CC on Admission CC: Chest pain HPI: This is a 75 [address]WM pt of [address] Mcgovern'martine with a past hx of bypass 17 yrs ago who presented to the ER with chest pain. Initial negative troponin, slight elevation this morning 0.93 grommet worker: Dr. Carmen is coming to see the pt this am and will likely perform cath Patient Interview: Pt confirms bypass 17 years ago. Pt confirms Dr. Broderick as his [employer]. Pt denies chest pain since arrival Labs discussed. Troponin is elevated, everything else okay Dr. Carmen not seen pt yet - he will be leading treatment in this case. 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 Pt does not wear O2 at home or a breathing machine at night Pt was informed that he will have more tests today Pt is NPO for now and curious when he can eat. Plan: NPO Monitor Troponin Scribed by Coreen Steele under the direct supervision of Dr. Hercules. Progress Notes/Assess & Plan Date Seen 12/23/16 Time Seen by Provider: 11:00 Admission Dx/Process Assessment: NSTMI HTN HLP Diagonsis/Assessment & Plan Patient had an uneventful cardiac catheter with intervention by Having no new issues Ready for discharge Pleasant, improved, at bedside Regular rate and rhythm, clear to auscultation bilaterally No edema Assessment: NSTEMI s/p intervention by Dr Carmen with stent placement HTN HLP Smoker Plan: [place] home CODI HERCULES DO Dec 23, 2016 12:30
--- NOTE | 2016-12-23 13:31 | CARDIAC CATHETERIZATION ---
PROCEDURE PHYSICIAN: JASMEET CARMEN DATE OF PROCEDURE: 12/22/2016 CORONARY ANGIOGRAPHY: PRIMARY HORSE RACING MANAGER: Dr. Broderick PERFORMING PHYSICIAN: Dr. Ankit Carmen. INDICATION: Non-STEMI PREOPERATIVE DIAGNOSIS: 1. Non-STEMI. 2. Previous history of coronary artery disease. 3. CABG. POSTOPERATIVE DIAGNOSIS: Severe left circumflex artery stenosis treated with drug eluting stents. HISTORY: Mr. Carrero is a 75-year-old gentleman he is a patient of Dr. Broderick. He presented with a prolonged episode of chest pain with sweating and radiation to the right arm. Troponins were significantly positive. EKG showed no ST elevation; however, ST downsloping with T wave inversion were noted in leads I and aVL. The patient was brought urgently to the [facility] for coronary angiography after informed consent. PROCEDURE PERFORMED: 1. Coronary angiography. 2. Left heart catheterization. 3. Saphenous vein graft angiography. 4. HUBBARD angiography. 5. PCI with drug eluting stent to proximal left circumflex artery. SPECIMEN: None. ESTIMATED BLOOD LOSS: 20 mL. COMPLICATIONS: None. ANTICOAGULATION: IV heparin. CONTRAST: 280 mL of Omnipaque. FLUOROSCOPY TIME: 14.6 minutes. FLUOROSCOPY DOSE: 2226 mGy. PROCEDURE DETAILS: The patient was brought to the [facility] after informed consent was taken. All the risks and complications were explained in detail. The patient was draped and prepped in the usual sterile fashion. Access was gained in the right femoral artery with a 6-Chinese sheath. Coronary angiography was performed with a JR4 and a JL4 catheter. HUBBARD angiography was performed with a HUBBARD catheter. Saphenous vein angiography was performed with a JR4 catheter. FINDINGS: 1. Left heart catheterization: LV pressure 162/5 mmHg. LVEDP is 20 mmHg. Aortic pressure 159/70 mmHg. EF is normal width mild lateral hypokinesis. There is no gradient across the aortic valve. 2. RCA: Totally occluded RCA at the ostium. 3. SVG graft to the PDA: patent; however, there is severe disease at the distal anastomotic site; however, the distal vessel just distal to the distal anastomotic site is 1.5 mm. 4. SVG to obtuse marginal artery: Patent. There is slow flow with mild diffuse disease noted; however, there is no severe stenosis. There is no significant disease at the distal anastomotic site. 5. There are 2 occluded grafts which we could not see even via aortogram. This is likely due to either diagonal or an obtuse marginal artery. 6. HUBBARD: HUBBARD is Tortuous in the midsegment; however, there is no severe stenosis. There is mild disease probably 20 to 30% in the mid segment of the HUBBARD. There is no disease on the proximal or distal anastomotic site. The LAD after the distal anastomotic site is mild diffusely diseased and is not a large vessel. However, it is a transapical vessel. 7. Left main is patent. 8. Ostial LAD is small with diffuse disease and then there is total occlusion in the mid segment of the LAD. 9. Left circumflex artery has severe hazy looking, subtotal disease segment in the ostium/proximal segment. RECOMMENDATION: PCI to proximal/ostial left circumflex artery is recommended. PCI DETAILS: We took an EBU 3.5 guide catheter, whisper extra-support guidewire and IV heparin for anticoagulation. ACT during the procedure was 229 seconds. The lesion was crossed with a whisper wire. There is very faint filling at the level of the stenosis, which suggests possibly an origin of an obtuse marginal artery. Considering the hypothesis that there could be an occluded vessel, I tried with 2 different whisper wires, but we were not able to cross or get into any vessels. This could be a previously occluded obtuse marginal artery, which is now grafted. We then took a 2 x 15 semi-compliant balloon and did a balloon dilatation for 50 seconds for 12 atmospheres. We then took resolute integrity 2.5 x 22 drug eluting stent and deployed it at 16 atmospheres for 30 seconds. The patient experienced chest pain and ST elevation. We then took an NC Quantum 3 x 15 and did a post dilatation for 43 seconds for 14 atmospheres. Excellent post procedure results. The wires were taken out with no vascular complication. IMPRESSION/CONCLUSION: 1. Severe [place] three-vessel disease. 2. Patent HUBBARD to the LAD. 3. Patent saphenous vein graft to obtuse marginal artery. 4. Patent SVG to and PDA. 5. Occluded SVG to probably a first diagonal and an OM vessel. 6. Severe acute lesion in the proximal left circumflex artery treated with drug eluting stent. The patient will be on aspirin and Plavix for at least one year. Aggressive secondary prevention measures will be recommended. Job ID: [id number] Dictated Date: 12/22/2016 14:30:41 Peanut Grader Date: 12/23/2016 13:01:29 / vasquez GAN
[2016-12-23 15:14] VITALS: BP 166/75
== END 2016-12-23 12:35 | disposition home or self-care (01) | DRG 247 ==
LOC: EDUNIT# 13:39 → ER 13:41 → ICU 15:39 → UNDOADMOB 15:39 → ICU 17:00 → INTOOBSV 12-22 12:49 → OBSVTOIN 12-22 12:49 → UNDODISIN 12-23 12:35 → ENPENDDIS 12-23 13:00
PROVIDERS: ADMIT Internal Medicine; ATTEND Internal Medicine
PROC: 027034Z Dilation of Coronary Artery, One Artery with Drug-eluting Intraluminal Device, Percutaneous Approach (ICD-10-PCS; principal; 2016-12-22)
PROC: 4A023N7 Measurement of Cardiac Sampling and Pressure, Left Heart, Percutaneous Approach (ICD-10-PCS; 2016-12-22)
PROC: B2111ZZ Fluoroscopy of Multiple Coronary Arteries using Low Osmolar Contrast (ICD-10-PCS; 2016-12-22)
PROC: B2151ZZ Fluoroscopy of Left Heart using Low Osmolar Contrast (ICD-10-PCS; 2016-12-22)
PROC: B21F1ZZ Fluoroscopy of Other Bypass Graft using Low Osmolar Contrast (ICD-10-PCS; 2016-12-22)
PROC: B2181ZZ Fluoroscopy of Left Internal Mammary Bypass Graft using Low Osmolar Contrast (ICD-10-PCS; 2016-12-22)
PROC: B3101ZZ Fluoroscopy of Thoracic Aorta using Low Osmolar Contrast (ICD-10-PCS; 2016-12-22)
DX: I21.4 Non-ST elevation (NSTEMI) myocardial infarction (principal); I25.10 Atherosclerotic heart disease of native coronary artery without angina pectoris; Q60.0 Renal agenesis, unilateral; I25.810 Atherosclerosis of coronary artery bypass graft(s) without angina pectoris; I25.82 Chronic total occlusion of coronary artery; I25.2 Old myocardial infarction; I10 Essential (primary) hypertension; E78.00 Pure hypercholesterolemia, unspecified; E11.9 Type 2 diabetes mellitus without complications; K21.9 Gastro-esophageal reflux disease without esophagitis; F17.290 Nicotine dependence, other tobacco product, uncomplicated; A64 Unspecified sexually transmitted disease; Z95.1 Presence of aortocoronary bypass graft; Z79.84 Long term (current) use of oral hypoglycemic drugs; Z72.89 Other problems related to lifestyle
CPT/HCPCS: 36415; 71010; 80048; 80053; 80061; 82150; 82550; 82553; 83690; 83735; 83880; 84484; 85025; 85027; 85347; 85610; 85730; 93005; 93041; 93306; 93459; 96365; 96375; 99211; G0378

== ENCOUNTER 2017-03-13 07:59 | Day surgery (SDC) | payer MEDICARE ==
[~2017-03-13] VITALS: Ht 175.3 cm; Wt 88.5 kg
[2017-03-13] VITALS (9 sets, daily range): BP systolic 134–196; BP diastolic 61–106
[~2017-03-13 07:59] MED LIST changes: +ATOR20TA66 PO; +CLOP75TA28 PO; +NS IV 1000 ML 1,000 ML ONE
[2017-03-13] MEDS ORDERED: HEParin (CATH LAB) 2,000 ML IV ONE (08:00)
[2017-03-13] MEDS ORDERED: NS IV 1000 ML 1,000 ML IV SCH ×2 (08:15→10:14)
[2017-03-13 08:41] LABS: RED BLOOD COUNT 4.6 10^6/uL (4.35-5.85); RED CELL DISTRIBUTION WIDTH 13.1 % (10.0-14.5); WHITE BLOOD COUNT 10.2 10^3/uL (4.3-11.0)
[2017-03-13 09:01] LABS: ALBUMIN 4.3 GM/DL (3.2-4.5); BILIRUBIN,TOTAL 1.2 MG/DL (0.1-1.0); CALCIUM 9.4 MG/DL (8.5-10.1); CREATININE SERUM 1.2 MG/DL (0.60-1.30); POTASSIUM 3.8 MMOL/L (3.6-5.0); TOTAL PROTEIN 7.5 GM/DL (6.4-8.2)
[2017-03-13] MEDS ORDERED: CLOP75TA69 PO (09:07)
[2017-03-13] MEDS ORDERED: MULT-1030 PO (09:07)
[2017-03-13] MEDS ORDERED: MIDAZOLAM 5 MG/5 ML (VERSED) VIAL ONE (09:14)
[2017-03-13] MEDS ORDERED: diphenhydrAMINE 50 MG/ML INJ (BENADRYL) ONE (09:15)
[2017-03-13] MEDS ORDERED: fentaNYL INJECTION 100 MCG/2 ML AMP ONE (09:15)
--- NOTE | 2017-03-13 10:14 | Cardiac Procedure Note-CS/ASA ---
Pre-Procedure Note Pre-Op Procedure Note H&P Reviewed The H&P was reviewed, patient examined and no changes noted. Date H&P Reviewed: Mar 13, 2017 Time H&P Reviewed: 09:50 Conscious Sedation Pre-Proced Time Reviewed: 09:50 ASA Class: 3 Airway Mallampati Classification: ([place] appropriate class) I. II. III, IV Lungs Heart ASA score ASA 1: a normal healthy patient ASA 2: a patient with a mild systemic disease (mid diabetes, controlled hypertension, obesity ASA 3: a patient with a severe systemic disease that limits activity (angina , COPD, prior Myocardial infarction) ASA 4: a patient with an incapacitating disease that is a constant threat to life (CHF, renal failure) ASA 5: a moribund patient not expected to survive 24 hrs. (ruptured aneurysm) ASA 6: a declared brain patient whose organs are being harvested. For emergent operations, add the letter E after the classification Grade 2 Sedation Plan: Analgesia, Amnesia, Plan communicated to team members, Discussed options with patient/fam, Discussed risks with patient/fam Note The patient is an appropriate candidate to undergo the planned procedure, sedation, and anesthesia. The patient immediately re-assessed prior to indication. RALPH AMAYA MD FACP FAC CCDS Mar 13, 2017 10:14
[2017-03-13] MEDS ORDERED: PATIENT MAY USE OWN MEDS, ALL PO SCH (10:15)
--- NOTE | 2017-03-13 10:18 | Discharge Inst-Post CATH ---
Discharge Inst-CATH Post Cardiac Cath D/C Inst Follow Up/Plan HOLD METFORMIN UNTIL THE EVENING OF 03/15/17 F/u with Dr Borderick in 2 weeks CARDIAC CATH DISCHARGE INSTRUCTIONS *Hold Metformin for 48 hours post heart cath. ACTIVITY * Go Home directly and rest. * Limit activity of the leg (or wrist if it was used) for 7 days including aerobics, swimming, jogging, bicycling, etc. * Restrict stair-climbing for 7 days if possible, if not, climb up with your non -cath leg, then bring together on the same step. * Avoid lifting, pushing, pulling or excessive movement of the affected extremity for 7 days. * Customary sexual activity may be resumed after 2 days-use caution not to use a position that strains or causes pain to the affected extremity. * No driving for 24 hours. * NO SMOKING. * Avoid straining for bowel movements for 7 days. * Gentle walking on level ground is allowed. * Returning to work will depend on the type of procedure and the results. Your doctor will discuss this with you. CALL YOUR DOCTOR FOR ANY OF THE FOLLOWING: *If bleeding from the puncture site occurs- Apply gentle pressure to site with clean cloth and call your doctor or EMS. * If a knot or lump forms under the skin, increases in size, or causes pain. * If bruising appears to be worsening or moving further down your leg instead of disappearing. * Temperature above 101 F. CARE OF YOUR GROIN INCISION; * Bruising or purple discoloration of the skin near the puncture site is common. * You may shower only, no bathtub bathing for 5 days. Be careful to avoid slipping as your leg may feel stiff. * If a closure device was used on your femoral artery, please see the attached guide regarding care of the device and your leg. * REMOVE the dressing from your groin the next day after your procedure in the shower. CARE OF YOUR WRIST INCISION; * Bruising or purple discoloration of the skin near the puncture site is common. * You may shower. * DO NOT submerge wrist. * Remove dressing in 24 hours. RALPH BRODERICK MD FACP [facility] CCDS Mar 13, 2017 10:18
--- NOTE | 2017-03-13 10:19 | Discharge Inst-Cardiology ---
Discharge Inst-Cardiac Discharge Medications Continued Medications: Amlodipine Besylate (Amlodipine Besylate) 5 Mg Tablet 5 MG PO DAILY, TAB Aspirin (Aspir 81) 81 Mg Tablet.dr 81 MG PO HS, TAB Atorvastatin Calcium (Atorvastatin Calcium) 20 Mg Tablet 20 MG PO Q48H, TAB Clopidogrel Bisulfate (Plavix) 75 Mg Tablet 75 MG PO DAILY, TAB Enalapril Maleate (Enalapril Maleate) 10 Mg Tablet 10 MG PO BID, TAB Fish Oil/Dha/Epa (Fish Oil 1,200 mg Fish Oil) 1 Each Capsule 1200 MG PO BID, CAP Metformin HCl (Metformin HCl) 500 Mg Tablet 500 MG PO BID, TAB Metoprolol Tartrate (Metoprolol Tartrate) 100 Mg Tablet 100 MG PO BID, TAB Multivits,Ca,Min/Iron/FA/Lycop (Centrum Men's Tablet) 1 Each Tablet 1 TAB PO DAILY, TAB Omeprazole (Omeprazole) 20 Mg Capsule.dr 20 MG PO BID, CAP Patient Instructions Patient Instructions: HOLD METFORMIN UNTIL THE EVENING OF 03/15/17 RALPH AMAYA MD FACP FAC CCDS Mar 13, 2017 10:19
--- NOTE | 2017-03-13 13:03 | CARDIAC CATHETERIZATION ---
DATE OF SERVICE: 03/13/2017 The patient is a 76-year-old man who has coronary artery disease and has been experiencing exertional shortness of breath and exertional heartburn. Cardiac catheterization was carried out today for coronary and graft evaluation. Informed consent was obtained. PROCEDURE: He was brought to the cardiac catheterization laboratory in a fasting state. Right groin was prepared and draped in the usual sterile fashion. Lidocaine 1% local anesthesia. Modified Seldinger technique was used to advance a 5-Turkmen sheath in the right femoral artery. A 5-Turkmen JL4 catheter used for left coronary angiography, 5-Turkmen JR4 catheter was used for right coronary angiography. A 5-Turkmen pigtail catheter was used for left heart catheterization, left ventricular angiography. A 5-Turkmen JR4 catheter was used for angiography of the aortocoronary grafts. A 5-Turkmen EZIO catheter was used for angiography of the left internal mammary artery graft to the left anterior descending artery. The patient tolerated the procedure well. At the end of the procedure, following removal of the diagnostic catheters, Mynx was used to achieve hemostasis. Angiography of the right femoral artery through the sheath had been carried out at the time of sheath insertion. The patient, overall, tolerated the procedure well. HEMODYNAMICS: Left ventricular end-diastolic pressure following coronary angiography was 25 mmHg. There was no significant pressure gradient on pullback across the aortic valve. Ascending aortic pressure is 137/91 LEFT VENTRICULAR ANGIOGRAPHY: Left ventricular angiography was carried out in right anterior oblique projection. Global left ventricular systolic function appears normal. Left ventricular ejection fraction is approximately 60%. There does not appear to be significant mitral regurgitation. CORONARY ANGIOGRAPHY: Left main coronary artery does not exhibit significant disease. Left anterior descending artery appears to have 80% stenosis in its mid portion involving the origin of the first septal and the first diagonal branches. The left circumflex artery has a patent stent in its proximal portion. This is known to be Resolute 2.5 x 22 mm stent placed in November 2016. The right coronary artery is occluded in its proximal portion. ANGIOGRAPHY OF THE SAPHENOUS VEIN GRAFT: The most cephalic saphenous vein graft is a graft to an obtuse marginal system. This is widely patent and exhibits mild diffuse plaque and atherosclerosis. There is no obstructive disease and the distal runoff is good. The next graft, caudal to the most cephalic graft, is completely occluded and is probably to a diagonal or a circumflex system. The next graft is a patent graft to the distal right coronary artery. This has 30 to 40% ostial stenosis. It has 60 to 70% stenosis at its insertion into the posterior descending branch of the right coronary artery. The posterior descending branch is of a small caliber (approximately 1.5 mm vessel). The most caudal graft is totally occluded. This is most likely to a diagonal system. LEFT INTERNAL MAMMARY ARTERY GRAFT ANGIOGRAPHY: Left internal mammary artery graft to the mid left anterior descending artery is widely patent and with good runoff. CONCLUSIONS: 1. Coronary artery disease as outlined above. This consists of 80% mid vessel stenosis left anterior descending artery, ostial occlusion of the right coronary artery and occlusion of an obtuse marginal system of the left circumflex. There is a widely patent stent in the proximal left circumflex artery that is known to be a Resolute 2.5 x 22 mm stent that was placed in November 2016. 2. Two out of 4 saphenous vein grafts are occluded. One saphenous vein graft to the obtuse marginal system is widely patent. Another saphenous vein graft to the posterior descending branch of the right coronary artery is patent, but with 60 to 70% stenosis at its insertion into the posterior descending branch, but the posterior descending branch itself is of a small caliber, (approximately 1.5 mm vessel). 3. Patent left internal mammary artery graft to left anterior descending artery. 4. Normal global left ventricular systolic function with ejection fraction approximately 60%. 5. Elevated left ventricular end-diastolic pressure. 6. No significant mitral regurgitation. DISCUSSION AND RECOMMENDATIONS: Based on results of the study, it appears appropriate to continue conservative therapy. Some of his symptoms have been suggestive of acid reflux and therapy for that has been initiated. If that does not take care of his symptoms, consideration can be given to percutaneous intervention to the distal part of the saphenous vein graft to the right coronary artery, although the vessel to which this goes is of a very small caliber (1.5 mm). Risk factor modification has been advised. Medication compliance has been advised. Outpatient followup is advised. Job ID: [id number] DocumentID: [id number] Dictated Date: 03/13/2017 10:33:29 Career Development Specialist Date: 03/13/2017 13:01:44 Dictated By: RALPH AMAYA MD, MA, FACP, FACC, MTDD
== END 2017-03-13 13:50 | disposition home or self-care (01) ==
LOC: CATH 07:59 → SURG 10:40 → CATH 13:50
PROVIDERS: ATTEND Internal Medicine Cardiovascular Disease
DX: R06.02 Shortness of breath (principal); I25.10 Atherosclerotic heart disease of native coronary artery without angina pectoris; T82.857A Stenosis of other cardiac prosthetic devices, implants and grafts, initial encounter; I25.82 Chronic total occlusion of coronary artery; E11.9 Type 2 diabetes mellitus without complications; I10 Essential (primary) hypertension; K21.9 Gastro-esophageal reflux disease without esophagitis; E78.5 Hyperlipidemia, unspecified; Z79.899 Other long term (current) drug therapy; Z72.0 Tobacco use; Z79.84 Long term (current) use of oral hypoglycemic drugs; Z95.5 Presence of coronary angioplasty implant and graft
CPT/HCPCS: 36415; 80053; 80061; 85027; 85610; 85730; 87081; 93005; 93459

== ENCOUNTER 2017-04-10 06:48 | Day surgery (SDC) | payer MEDICARE ==
[~2017-04-10] VITALS: Ht 175.3 cm; Wt 88.5 kg
[2017-04-10] VITALS (16 sets, daily range): BP systolic 120–164; BP diastolic 63–95
[~2017-04-10 06:48] MED LIST changes: +CLOP75TA69 PO; +HEParin (CATH LAB) 2,000 ML IV ONE; +MULT-1030 PO
[2017-04-10 07:11] LABS: MEAN PLATELET VOLUME 10.1 FL (7.4-10.4); RED BLOOD COUNT 4.66 10^6/uL (4.35-5.85); RED CELL DISTRIBUTION WIDTH 12.9 % (10.0-14.5); WHITE BLOOD COUNT 10.3 10^3/uL (4.3-11.0)
[2017-04-10 07:23] LABS: INR 0.9 (0.8-1.4); PROTHROMBIN TIME PATIENT 12.6 SEC (12.2-14.7)
[2017-04-10] MEDS ORDERED: NS IV 1000 ML 1,000 ML IV SCH (07:30)
[2017-04-10 07:34] LABS: ALBUMIN 4.2 GM/DL (3.2-4.5); BILIRUBIN,TOTAL 1.1 MG/DL (0.1-1.0); CALCIUM 9.9 MG/DL (8.5-10.1); CREATININE SERUM 1.18 MG/DL (0.60-1.30); TOTAL PROTEIN 7.9 GM/DL (6.4-8.2)
[2017-04-10] MEDS ORDERED: INFLUENZA TRIvalent 2017-2018 0.5 ML/45 MCG SYR IM ONE (07:45)
[2017-04-10] MEDS ORDERED: HEParin 1000 UNIT/ML (10ML VIAL) FOR BOLUS ONE (07:48)
[2017-04-10] MEDS ORDERED: MIDAZOLAM 5 MG/5 ML (VERSED) VIAL ONE (07:48)
[2017-04-10] MEDS ORDERED: fentaNYL INJECTION 100 MCG/2 ML AMP ONE (07:48)
[2017-04-10] MEDS ORDERED: diphenhydrAMINE 50 MG/ML INJ (BENADRYL) ONE (07:48)
[2017-04-10] MEDS ORDERED: EPTIFIBATIDE BOLUS 20 ML IV ONE (08:03)
[2017-04-10] MEDS ORDERED: NS (IVPB) 250 ML ONE (08:12)
[2017-04-10] MEDS ORDERED: niCARdipine 25 MG/10 ML (CARDENE) AMP IV ONE (08:12)
[2017-04-10] MEDS ORDERED: ASPIRIN 81 MG CHEW (CHILDREN'S ASA) ONE (08:48)
[2017-04-10] MEDS ORDERED: CLOPIDOGREL 75 MG (PLAVIX) TABLET ONE (08:48)
--- NOTE | 2017-04-10 09:01 | Cardiac Procedure Note-CS/ASA ---
Pre-Procedure Note Pre-Op Procedure Note H&P Reviewed The H&P was reviewed, patient examined and no changes noted. Date H&P Reviewed: Apr 10, 2017 Time H&P Reviewed: 07:55 Conscious Sedation Pre-Proced Time Reviewed: 07:55 ASA Class: 3 Airway Mallampati Classification: ([place] appropriate class) I. II. III, IV Lungs Heart ASA score ASA 1: a normal healthy patient ASA 2: a patient with a mild systemic disease (mid diabetes, controlled hypertension, obesity ASA 3: a patient with a severe systemic disease that limits activity (angina , COPD, prior Myocardial infarction) ASA 4: a patient with an incapacitating disease that is a constant threat to life (CHF, renal failure) ASA 5: a moribund patient not expected to survive 24 hrs. (ruptured aneurysm) ASA 6: a declared brain patient whose organs are being harvested. For emergent operations, add the letter E after the classification Grade 2 Sedation Plan: Analgesia, Amnesia, Plan communicated to team members, Discussed options with patient/fam, Discussed risks with patient/fam Note The patient is an appropriate candidate to undergo the planned procedure, sedation, and anesthesia. The patient immediately re-assessed prior to indication. RALPH AMAYA MD FACP FAC CCDS Apr 10, 2017 09:01
[2017-04-10] MEDS ORDERED: ACETAMINOPHEN 325 MG TABLET/CAPLET (TYLENOL) PO PRN (09:15)
[2017-04-10] MEDS ORDERED: PATIENT MAY USE OWN MEDS, ALL PO SCH (09:15)
[2017-04-10] MEDS: inSUlin (REGULAR) HUMAN 1 UNIT/0.01 ML (CHARGE PER UNIT) SC SCH ×3 (11:43→21:33)
[2017-04-10] MEDS: NS IV 1000 ML 1,000 ML IV SCH ×2 (11:44→14:00)
[2017-04-10] MEDS ORDERED: PANTOPRAZOLE 20 MG TABLET (PROTONIX) PO SCH (12:00)
[2017-04-10] MEDS: FISH OIL 1200 MG CAPSULE PO SCH (16:37)
[2017-04-10] MEDS ORDERED: OMEGA 3 (FISH OIL) 1000 MG CAP PO SCH (17:00)
[2017-04-10] MEDS: OMEPRAZOLE 20 MG (PriLOSEC) CAP NON-FORMULARY PO SCH (20:52)
[2017-04-10] MEDS: ENALAPRIL 10 MG (VASOTEC) TAB PO SCH (20:54)
[2017-04-10] MEDS: METOPROLOL TARTRATE 100 MG TAB PO SCH (20:56)
[2017-04-10] MEDS ORDERED: ATORVASTATIN 20 MG (LIPITOR) TABLET PO SCH (21:00)
[2017-04-10] MEDS ORDERED: meTOprolol TARTRATE 50 MG (LOPRESSOR) TAB PO SCH (21:00)
[2017-04-10] MEDS ORDERED: OMEPRAZOLE 20 MG (PriLOSEC) CAP NON-FORMULARY PO SCH (21:00)
[2017-04-10] MEDS ORDERED: NON-FORMULARY MEDICATION 1 EA EA (Metoprolol Tartrate 100 MG) PO SCH (21:00)
[2017-04-10] MEDS ORDERED: ENALAPRIL 10 MG (VASOTEC) TAB PO SCH (21:00)
[2017-04-11] VITALS: BP 133/63
--- NOTE | 2017-04-11 01:42 | CARDIAC CATHETERIZATION ---
DATE OF SERVICE: 04/10/2017 CORONARY INTERVENTION REPORT HISTORY OF PRESENT ILLNESS: The patient is a 76-year-old gentleman who is known to have coronary artery disease and has had previous coronary artery bypass surgery. A relatively recent cardiac catheterization had indicated stable coronary and graft status, but there was significant stenosis at the site of insertion of the saphenous vein graft to the right coronary artery. The right coronary artery itself, at the site of graft insertion, is of small caliber and we attempted medical therapy first. However, the patient has continued to have significant angina with small amounts of activity and a full discussion was undertaken and we proceeded with percutaneous intervention to the saphenous vein graft to the right coronary artery today after having explained the pros and cons of the study to him in detail and higher than usual risk of complication because of small vessel caliber. He provided informed consent. DESCRIPTION OF PROCEDURE: He was brought to the cardiac catheterization laboratory in a fasting state. The right groin was prepared and draped in the usual sterile fashion. A 1% lidocaine was used for local anesthesia. Modified Seldinger technique was used to advance a 6-Omani sheath into the right femoral artery. We used a 6-Omani JR4 guide catheter to engage the saphenous vein graft to the right coronary artery. We gave 6000 units of intravenous heparin. A double bolus of Integrilin was also given during the procedure. We first used a Choice floppy wire to cross the lesion at the site of insertion of the saphenous vein graft and to the posterior descending branch. This was accomplished with moderate difficulty. We placed the tip of the wire antegrade to the site of the insertion and carried out balloon angioplasty with Emerge 1.5 x 15 mm balloon. Balloon angioplasty was carried out to 16 atmospheres. The angiogram prior to initiation of the balloon angioplasty had indicated 99% stenosis at the site of insertion and PETEY-1 flow throughout the saphenous vein graft and the posterior descending artery. Following this balloon angioplasty, the stenosis improved to approximately 80% and flow improved to PETEY-3 (normal flow). We felt that we would not be able to carry out more balloon angioplasty at this site because the portion of the posterior descending artery antegrade to the site of insertion was not of caliber greater than 1.5 mm. We decided to place the wire retrograde into a bigger portion of the posterior descending branch and attempt angioplasty with a bigger balloon. We were not able to accomplish this with the Choice floppy wire. We were able to accomplish this with a BMW wire with moderate difficulty. We then carried out balloon angioplasty at the site of insertion with an Emerge 2.0 x 20 mm balloon with balloon inflation to 8 atmospheres. Subsequent angiography revealed normal flow throughout the graft in the posterior descending artery, both antegrade and retrograde. The stenosis at the site of insertion had been reduced from 99% to approximately 70%. At this point, we felt that further intervention is likely not required because the flow had improved to normal and there is significant size mismatch between the saphenous vein graft and the posterior descending artery itself. We removed the angioplasty equipment. We had carried out angiography of the right femoral artery through the sheath at the beginning of the procedure. At the end of the procedure, Mynx was used to achieve hemostasis. He tolerated the procedure well. SAPHENOUS VEIN GRAFT ANGIOGRAPHY Initial saphenous vein graft angiography indicated 30% to 40% proximal/ostial stenosis of the saphenous vein graft to the posterior descending branch and 99% stenosis of the saphenous vein graft at the site of insertion into the posterior descending branch. This was associated with PETEY-1 flow. Following balloon angioplasty at the site of insertion of the vein graft at the posterior descending branch, the stenosis was reduced to 70% and the flow improved to normal (PETEY-3). CONCLUSIONS: Successful balloon angioplasty of the site of insertion of the saphenous vein graft to the posterior descending branch with reduction of stenosis from 99% to approximately 70% and improvement of flow from PETEY-1 to PETEY-3 (normal flow). Job ID: [id number] DocumentID: [id number] Dictated Date: 04/10/2017 09:25:16 Soft Boarder Date: 04/10/2017 13:11:36 Dictated By: RALPH AMAYA MD, MA, FACP, FACC,
[2017-04-11 04:00] VITALS: BP 145/67
[2017-04-11] MEDS: inSUlin (REGULAR) HUMAN 1 UNIT/0.01 ML (CHARGE PER UNIT) SC SCH (05:10)
[2017-04-11] MEDS: FISH OIL 1200 MG CAPSULE PO SCH (06:11)
[2017-04-11] MEDS: OMEPRAZOLE 20 MG (PriLOSEC) CAP NON-FORMULARY PO SCH (06:12)
[2017-04-11 06:37] LABS: MEAN PLATELET VOLUME 9.4 FL (7.4-10.4); RED CELL DISTRIBUTION WIDTH 12.8 % (10.0-14.5)
[2017-04-11 06:39] LABS: RED BLOOD COUNT 3.84 10^6/uL (4.35-5.85); WHITE BLOOD COUNT 8.6 10^3/uL (4.3-11.0)
[2017-04-11] MEDS ORDERED: MULTIVIT W/MINERALS TAB (THERAGRAN M) PO SCH ×2 (07:00)
[2017-04-11 07:02] LABS: ANION GAP 10 MMOL/L (5-14); BLOOD UREA NITROGEN 13 MG/DL (7-18); BUN/CREATININE RATIO 14; CALCIUM 8.5 MG/DL (8.5-10.1); CARBON DIOXIDE 23 MMOL/L (21-32); CHLORIDE 105 MMOL/L (98-107); CREATININE SERUM 0.94 MG/DL (0.60-1.30); GFR ESTIMATED > 60; GLUCOSE 160 MG/DL (70-105); POTASSIUM 3.7 MMOL/L (3.6-5.0); SODIUM 138 MMOL/L (135-145)
--- NOTE | 2017-04-11 07:50 | Progress Note-Cardiology ---
Cardiology SOAP Progress Note Subjective: No c/o. Wants to go home. No c/o CP, palpitations, syncope or near syncope. No c/o groin pain. Objective: I&O/Vital Signs Weight (Pounds): 195 Weight (Ounces): 0.0 Weight (Calculated Kilograms): 88.692305 Side: right Groin site without hematoma: Yes Condition: DP/PT pulses palpable, extremity w/d/p Bruising: mild bruising Constitutional: AAO x 3 Respiratory: No accessory muscle use, No respiratory distress, lungs clear to percussion, lungs clear to auscultation Cardiovascular: regular rate-rhythm, No JVD, S1 and S2 Gastrointestional: No tender, soft, audible bowel sounds Extremities: no lower extremity edema bilateral Neurologic/Psychiatric: grossly intact Skin: No rash, No ulcerations Results/Procedures: Labs Microbiology 04/10/17 MRSA Screen - Final, Complete MRSA not isolated Procedures Please refer to Dr. Broderick's procedure note of 04-10-17 for details A/P: Assessment: Successful balloon angioplasty of the site of insertion of the saphenous vein graft to the posterior descending branch with reduction of stenosis from 99% to approximately 70% and improvement of flow from PETEY-1 to PETEY-3 (normal flow) on April 10, 2017 Coronary artery disease with a history of coronary artery bypass surgery consisting of left internal mammary artery graft to left anterior descending artery, saphenous vein graft to right coronary artery, saphenous vein graft to diagonal artery, saphenous vein graft to first obtuse marginal artery, saphenous vein graft to second obtuse marginal artery in 1999. Senting of prox LCX in November 2016 after he had presented with ac NSTEMI Last card cath on 03/13/17: Coronary artery disease as outlined above. This consists of 80% mid vessel stenosis left anterior descending artery, ostial occlusion of the right coronary artery and occlusion of an obtuse marginal system of the left circumflex. There is a widely patent stent in the proximal left circumflex artery that is known to be a Resolute 2.5 x 22 mm stent that was placed in November 2016. Two out of 4 saphenous vein grafts are occluded. One saphenous vein graft to the obtuse marginal system is widely patent. Another saphenous vein graft to the posterior descending branch of the right coronary artery is patent, but with 60 to 70% stenosis at its insertion into the posterior descending branch, but the posterior descending branch itself is of a small caliber, (approximately 1.5 mm vessel). Patent left internal mammary artery graft to left anterior descending artery. Normal global left ventricular systolic function with ejection fraction approximately 60%. Elevated left ventricular end-diastolic pressure. No significant mitral regurgitation. Hypertension, controlled. Hyperlipidemia being treated with statin therapy and managed by Dr. Prado Diabetes mellitus, type II. Gastroesophageal reflux. Tobaccoism consisting smoking cigars. He has again been asked to refrain from using tobacco. Carotid arterial disease, mild, per ultrasonography of December 2010. Minimal ALT elevation, stable on serial evals; f/u advised with Dr Prado Plan: Ok to discharge home Continue current medication regimen Out pt f/u SHANT KIRBY Apr 11, 2017 07:50
[2017-04-11 08:30] VITALS: BP 147/86
[2017-04-11] MEDS ORDERED: ASPIRIN E.C. 81 MG (ECOTRIN) TAB PO SCH (09:00)
[2017-04-11] MEDS ORDERED: amLODIPine 5 MG (NORVASC) TAB PO SCH (09:00)
[2017-04-11] MEDS ORDERED: CLOPIDOGREL 75 MG (PLAVIX) TABLET PO SCH (09:00)
--- NOTE | 2017-04-11 09:11 | Discharge Inst-Cardiology ---
Discharge Inst-Cardiac Discharge Medications Continued Medications: Amlodipine Besylate (Amlodipine Besylate) 5 Mg Tablet 5 MG PO DAILY, TAB Aspirin (Aspir 81) 81 Mg Tablet.dr 81 MG PO HS, TAB Atorvastatin Calcium (Atorvastatin Calcium) 20 Mg Tablet 20 MG PO Q48H, TAB Clopidogrel Bisulfate (Plavix) 75 Mg Tablet 75 MG PO DAILY, TAB Enalapril Maleate (Enalapril Maleate) 10 Mg Tablet 10 MG PO BID, TAB Fish Oil/Dha/Epa (Fish Oil 1,200 mg Fish Oil) 1 Each Capsule 1200 MG PO BID, CAP Metformin HCl (Metformin HCl) 500 Mg Tablet 500 MG PO BID, TAB Metoprolol Tartrate (Metoprolol Tartrate) 100 Mg Tablet 100 MG PO BID, TAB Multivits,Ca,Min/Iron/FA/Lycop (Centrum Men's Tablet) 1 Each Tablet 1 TAB PO DAILY, TAB Omeprazole (Omeprazole) 20 Mg Capsule.dr 20 MG PO BID, CAP Patient Instructions Patient Instructions: Please schedule follow up appt to be seen by Dr. Broderick in 2 weeks Do not take Metformin today or tomorrow. Restart Metformin on Sunday, April 13, 2017 SHANT KIRBY Apr 11, 2017 09:11
[2017-04-11] MEDS: ENALAPRIL 10 MG (VASOTEC) TAB PO SCH (09:23)
[2017-04-11] MEDS: METOPROLOL TARTRATE 100 MG TAB PO SCH (09:24)
== END 2017-04-11 10:40 ==
LOC: CATH 06:48 → 4TH 09:15 → CATH 04-11 10:40
PROVIDERS: ATTEND Internal Medicine Cardiovascular Disease
DX: I25.700 Atherosclerosis of coronary artery bypass graft(s), unspecified, with unstable angina pectoris (principal); I25.10 Atherosclerotic heart disease of native coronary artery without angina pectoris; E11.9 Type 2 diabetes mellitus without complications; I10 Essential (primary) hypertension; E78.5 Hyperlipidemia, unspecified; K21.9 Gastro-esophageal reflux disease without esophagitis; I65.29 Occlusion and stenosis of unspecified carotid artery; Z79.84 Long term (current) use of oral hypoglycemic drugs; Z79.899 Other long term (current) drug therapy; Z72.0 Tobacco use; Z95.5 Presence of coronary angioplasty implant and graft
CPT/HCPCS: 36415; 80048; 80053; 80061; 82962; 85027; 85610; 85730; 87081; 92937; 93005

== ENCOUNTER 2017-05-23 09:55 | Inpatient (IN) | payer MEDICARE ==
[~2017-05-23] VITALS: Ht 175.3 cm; Wt 91.9 kg
[~2017-05-23 09:55] MED LIST changes: -HEParin (CATH LAB) 2,000 ML IV ONE; -NS IV 1000 ML 1,000 ML ONE
[2017-05-23] MEDS ORDERED: morphine INJ 10 MG/ML 1ML (SYR OR VIAL) IV STA (09:58)
[2017-05-23] MEDS ORDERED: ASPIRIN 81 MG CHEW (CHILDREN'S ASA) PO ONE (10:00)
--- NOTE | 2017-05-23 10:02 | ED Chest Pain ---
General Chief Complaint: Chest Pain Stated Complaint: CP/HEARTBURN Source: patient, old records Exam Limitations: no limitations History of Present Illness Time seen by provider: 09:56 Initial Comments Patient presents to ER by private conveyance with a chief complaint that he is having some chest pain last night that woke him up soon as he got up to move around it went away. He associated with heartburn. He did not take anything for that time. He does not use nitroglycerin because he says nitroglycerin damage or kill him in the past. He says this morning he started expressing the chest pain again as well as some mild shortness of breath no cough fevers. He did not have any nausea however he did have some sweats. This pain radiated to his left arm shoulder and neck. He has a history of 5 bypasses and one stent. A few weeks ago he had a catheter placed in his heart with some ballooning "the bypasses by Dr. Okeefe. He does not smoke cigarettes but he does have an occasional cigar. He has hypertension, hypercholesterolemia etc. Coronary catheter from 04/10/[address] Okeefe shows successful balloon angioplasty of site of insertion of the saphenous vein graft to the posterior descending branch with reduction of stenosis from 99% or proximal with 70% and improvement of flow from PETEY 1 to PETEY 3. Allergies and Home Medications Allergies Coded Allergies: Penicillins (Verified Allergy, Unknown, 02/09/15) nitroglycerin (Verified Allergy, Unknown, 02/09/15) Home Medications Amlodipine Besylate 5 Mg Tablet, 5 MG PO DAILY, (Reported) Aspirin 81 Mg Tablet., 81 MG PO HS, (Reported) Atorvastatin Calcium 20 Mg Tablet, 20 MG PO Q48H, (Reported) Clopidogrel Bisulfate 75 Mg Tablet, 75 MG PO DAILY, (Reported) Enalapril Maleate 10 Mg Tablet, 10 MG PO BID, (Reported) Fish Oil/Dha/Epa 1 Each Capsule, 1,200 MG PO BID, (Reported) Metformin HCl 500 Mg Tablet, 500 MG PO BID, (Reported) Metoprolol Tartrate 100 Mg Tablet, 100 MG PO BID, (Reported) Multivits,Ca,Min/Iron/FA/Lycop 1 Each Tablet, 1 TAB PO DAILY, (Reported) Omeprazole 20 Mg Capsule., 20 MG PO BID, (Reported) Review of Systems Constitutional: No chills, No diaphoresis EENTM: No Blurred Vision, No Double Vision Respiratory: Denies Cough, Denies SOA at Rest Cardiovascular: See HPI, Chest Pain, Denies Edema, Other (diaphoresis) Gastrointestinal: Denies Abdomen Distended, Denies Abdominal Pain, Denies Nausea Genitourinary: Denies Burning, Denies Discharge Musculoskeletal: No back pain, No joint pain Skin: No pruritus, No rash Psychiatric/Neurological: Denies Headache, Denies Numbness, Denies Paresthesia Past Pdmeyaf-Nvacqs-Uonjcf Hx Patient Social History Alcohol Use: Occasionally Uses Alcohol Beverage of Choice: [place] Smoking Status: Current Someday Smoker Type Used: Cigars 2nd Hand Smoke Exposure: Yes Recent Hopitalizations: No Immunizations Up To Date Tetanus Booster (TDap): Unknown PED Vaccines UTD: No Date of Pneumonia Vaccine: Dec 21, 2014 Seasonal Allergies Seasonal Allergies: No Surgeries History of Surgeries: Yes Surgeries: Cardiac, CABG, Gallbladder Respiratory History of Respiratory Disorde: No Cardiovascular History of Cardiac Disorders: Yes Cardiac Disorders: Coronary Artery Disease, Heart Attack, High Cholesterol, Hypertension Neurological History of Neurological Disord: No Reproductive System Hx Reproductive Disorders: No Sexually Transmitted Disease: No HIV/AIDS: No Genitourinary History of Genitourinary Disor: No Gastrointestinal History of Gastrointestinal Di: Yes Gastrointestinal Disorders: Gastroesophageal Reflux Musculoskeletal History of Musculoskeletal Dis: No Endocrine History of Endocrine Disorders: Yes Endocrine Disorders: Diabetes, Non-Insulin dep HEENT History of HEENT Disorders: Yes HEENT Disorders: Cataract Loss of Vision: Denies Hearing Impairment: Denies Cancer History of Cancer: No Psychosocial History of Psychiatric Problem: No Integumentary History of Skin or Integumenta: No Blood Transfusions History of Blood Disorders: No Adverse Reaction to a Blood Tr: No Family Medical History Family Medial History: FH: COPD (chronic obstructive pulmonary disease) 19 FATHER Myocardial infarction 19 MOTHER Physical Exam Vital Signs Vital Sign - Last 12Hours 05/23/17 05/23/17 09:55 10:12 Temp 98.0 Pulse 111 Resp 18 B/P (MAP) 197/119 Pulse Ox 98 O2 Delivery Nasal Cannula O2 Flow Rate 2.00 Capillary Refill : General Appearance: WD/WN, Anxious HEENT: PERRL/EOMI, Normal ENT Inspection, Pharynx Normal Neck: Full Range of Motion, Normal Inspection, Non Tender, Supple Respiratory: Chest Non Tender, Lungs Clear, Normal Breath Sounds Cardiovascular: Regular Rate, Rhythm, No Edema, Normal Peripheral Pulses Progress/Results/Core Measures Results/Orders Lab Results Laboratory Tests Test 05/23/17 10:00 Range/Units White Blood Count 10.1 4.3-11.0 10^3/uL Red Blood Count 4.53 4.35-5.85 10^6/uL Hemoglobin 15.4 13.3-17.7 G/DL Hematocrit 43 40-54 % Mean Corpuscular Volume 95 80-99 FL Mean Corpuscular Hemoglobin 34 25-34 PG Mean Corpuscular Hemoglobin Concent 36 32-36 G/DL Red Cell Distribution Width 13.0 10.0-14.5 % Platelet Count 232 130-400 10^3/uL Mean Platelet Volume 10.0 7.4-10.4 FL Neutrophils (%) (Auto) 59 42-75 % Lymphocytes (%) (Auto) 29 12-44 % Monocytes (%) (Auto) 8 0-12 % Eosinophils (%) (Auto) 4 0-10 % Basophils (%) (Auto) 1 0-10 % Neutrophils # (Auto) 5.9 1.8-7.8 X 10^3 Lymphocytes # (Auto) 3.0 1.0-4.0 X 10^3 Monocytes # (Auto) 0.8 0.0-1.0 X 10^3 Eosinophils # (Auto) 0.4 H 0.0-0.3 10^3/uL Basophils # (Auto) 0.1 0.0-0.1 10^3/uL Prothrombin Time 13.0 12.2-14.7 SEC INR Comment 1.0 0.8-1.4 Activated Partial Thromboplast Time 33 24-35 SEC Sodium Level 139 135-145 MMOL/L Potassium Level 3.8 3.6-5.0 MMOL/L Chloride Level 100 98-107 MMOL/L Carbon Dioxide Level 25 21-32 MMOL/L Anion Gap 14 5-14 MMOL/L Blood Urea Nitrogen 13 7-18 MG/DL Creatinine 1.02 0.60-1.30 MG/DL Estimat Glomerular Filtration Rate > 60 BUN/Creatinine Ratio 13 Glucose Level 207 H 70-105 MG/DL Calcium Level 10.1 8.5-10.1 MG/DL Magnesium Level 1.6 L 1.8-2.4 MG/DL Total Bilirubin 1.4 H 0.1-1.0 MG/DL Aspartate Amino Transf (AST/SGOT) 42 H 5-34 U/L Alanine Aminotransferase (ALT/SGPT) 36 0-55 U/L Alkaline Phosphatase 83 40-136 U/L Myoglobin 64.2 10.0-92.0 NG/ML Troponin I < 0.30 <0.30 NG/ML B-Type Natriuretic Peptide 252.3 H <100.0 PG/ML Total Protein 8.5 H 6.4-8.2 GM/DL Albumin 4.4 3.2-4.5 GM/DL My Orders Orders - [facility] Cbc With Automated Diff (05/23/17 09:58) Magnesium (05/23/17 09:58) Chest 1 View, Ap/Pa Only (05/23/17 09:58) Ekg Tracing (05/23/17 09:58) Cardiac Profile 1 (05/23/17 09:58) Comprehensive Metabolic Panel (05/23/17 09:58) Myoglobin Serum (05/23/17 09:58) Protime With Inr (05/23/17 09:58) Partial Thromboplastin Time (05/23/17 09:58) O2 (05/23/17 09:58) Monitor-Rhythm Ecg Trace Only (05/23/17 09:58) Lipid Panel (05/24/17 06:00) Aspirin Chewable Tablet (Baby Aspirin Ch (05/23/17 10:00) Morphine Injection (Morphine Injection (05/23/17 09:58) Saline Lock/Iv-Start (05/23/17 09:58) BNP (05/23/17 09:58) Magnesium Oxide Tablet (Mag Ox Tablet) (05/23/17 10:45) Morphine Injection (Morphine Injection (05/23/17 11:30) Ekg Tracing (05/23/17 11:18) Clopidogrel Tablet (Plavix Tablet) (05/23/17 12:00) Heparin Drip 98712 Unit/500ml (Heparin (05/23/17 11:53) Heparin (Bolus Per Protocol) (Heparin (B (05/23/17 11:53) Metoprolol Succinate (Xl) Tab (Toprol Xl (05/23/17 12:15) Medications Given in ED Current Medications Medications Dose Ordered Sig/Denise Route Start Time Stop Time Status Last Admin Dose Admin Aspirin 324 mg ONCE ONCE PO 05/23/17 10:00 05/23/17 10:03 DC 05/23/17 10:03 324 MG Clopidogrel Bisulfate 150 mg ONCE ONCE PO 05/23/17 12:00 05/23/17 12:01 DC 05/23/17 12:05 150 MG Heparin Sodium (Porcine) 5,000 unit 1153 ONCE IV 05/23/17 11:53 05/23/17 11:55 DC 05/23/17 12:04 5,000 UNIT Heparin Sodium/ Dextrose 500 ml @ 0 mls/hr Q0M ONCE IV 05/23/17 11:53 05/23/17 12:13 DC 05/23/17 12:05 20 MLS/HR Magnesium Oxide 400 mg ONCE ONCE PO 05/23/17 10:45 05/23/17 10:46 DC 05/23/17 11:08 400 MG Morphine Sulfate 4 mg ONCE ONCE IVP 05/23/17 11:30 05/23/17 11:31 DC 05/23/17 11:25 4 MG Vital Signs/I&O Vital Sign - Last 12Hours 05/23/17 05/23/17 09:55 10:12 Temp 98.0 Pulse 111 Resp 18 B/P (MAP) 197/119 Pulse Ox 98 O2 Delivery Nasal Cannula O2 Flow Rate 2.00 ECG Initial ECG Impression Date: May 23, 2017 Initial ECG Impression Time: 09:54 Initial ECG Rate: 103 Initial ECG Rhythm: A Fib/Flutter Initial ECG Intervals: QRS (110) Initial ECG Impression: Nonspecific Changes Initial ECG Comparisson: Changed Comment There is an incomplete left bundle branch block was not seen on previous EKG from little over a month ago. He also has atrial fibrillation. Patient states she's known to have atrial fibrillation. There is no convincing ST depression and a V3 V4 range but does not have any reciprocal changes. Also a lot of artifact. Not totally consistent with an and STEMI. EKG : EKG Time: 11:24 Rate: 108 Rhythm: S.Tach Intervals: Normal ECG Comparisson: Unchanged ECG Impression: Nonspecific Changes Comment Sinus tach without elevated or depressed ST segment. Diagnostic Imaging Diagonstic Imaging: Xray Plain Films/CT/US/NM/MRI: chest Reviewed: Reviewed by Me Consults Consults : Consulting Physician: RALPH AMAYA MD FACP [facility] Consults Notes Left voicemail at [phone]: Discussed case he would like additional 100 mg Toprol-XL times one now before leaving the ER. Departure Communication (Admissions) Time/Spoke to Admitting Phy: 11:[address] Adan Davidson discussed case imaging lab findings and plan to place the patient in the hospital and follow with your Dr. Okeefe or Dr. Carmen. He'll see the patient. Time/Spoke to Consulting Phy: 11:51 Communication/Consulting Spoke to Dr. 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 If cardial does not available than he will see the patient. Impression Impression: Primary Impression: Chest pain Qualified Codes: R07.9 - Chest pain, unspecified Disposition: 09 ADMITTED INPATIENT Condition: Stable Admissions Decision to Admit Reason: Admit from ER (General) Decision to Admit/Date: May 23, 2017 Time/Decision to Admit Time: 11:52 Departure-Patient Inst. Referrals: ADAN DAVIDSON MD (PCP/Family) Primary Care Physician Copy Copies To 1: ADAN DAVIDSON MD, TITUS J May 23, 2017 10:02
[2017-05-23 10:08] LABS: RED BLOOD COUNT 4.53 10^6/uL (4.35-5.85); WHITE BLOOD COUNT 10.1 10^3/uL (4.3-11.0)
[2017-05-23 10:09] LABS: BASOPHILS # (AUTO) 0.1 10^3/uL (0.0-0.1); BASOPHILS % (AUTO) 1 % (0-10); EOSINOPHILS # (AUTO) 0.4 10^3/uL (0.0-0.3); EOSINOPHILS % (AUTO) 4 % (0-10); LYMPHOCYTES % (AUTO) 29 % (12-44); MEAN CORPUSCULAR HEMOGLOBIN 34 PG (25-34); MEAN CORPUSCULAR HGB CONC 36 G/DL (32-36); MEAN CORPUSCULAR VOLUME 95 FL (80-99); MONOCYTES # (AUTO) 0.8 X 10^3 (0.0-1.0); MONOCYTES % (AUTO) 8 % (0-12); NEUTROPHILS # (AUTO) 5.9 X 10^3 (1.8-7.8); NEUTROPHILS % (AUTO) 59 % (42-75); PLATELET COUNT 232 10^3/uL (130-400)
[2017-05-23 10:28] LABS: ALANINE AMINOTRANSFERASE 36 U/L (0-55); ALBUMIN 4.4 GM/DL (3.2-4.5); ANION GAP 14 MMOL/L (5-14); ASPARTATE AMINO TRANSFERASE 42 U/L (5-34); BILIRUBIN,TOTAL 1.4 MG/DL (0.1-1.0); BLOOD UREA NITROGEN 13 MG/DL (7-18); BUN/CREATININE RATIO 13; CALCIUM 10.1 MG/DL (8.5-10.1); CARBON DIOXIDE 25 MMOL/L (21-32); CHLORIDE 100 MMOL/L (98-107); CREATININE SERUM 1.02 MG/DL (0.60-1.30); GFR ESTIMATED > 60; GLUCOSE 207 MG/DL (70-105); MAGNESIUM 1.6 MG/DL (1.8-2.4); POTASSIUM 3.8 MMOL/L (3.6-5.0); SODIUM 139 MMOL/L (135-145); TOTAL PROTEIN 8.5 GM/DL (6.4-8.2)
[2017-05-23 10:34] LABS: MYOGLOBIN SERUM 64.2 NG/ML (10.0-92.0)
--- NOTE | 2017-05-23 10:44 | Diagnostic Imaging Report ---
INDICATION: Chest pain. Exam compared 12/21/2016. FINDINGS: Cardiomegaly unchanged in magnitude and configuration. There are chronic interstitial changes and air trapping stable. When differing film penetration and technique taken into account as well as the body habitus, no convincing pulmonary parenchymal change or focal consolidation. No effusion or pneumothorax. IMPRESSION: Chronic lung disease and chronic cardiomegaly postoperative sequelae stable. No new abnormality or change apparent. Dictated by: Dictated on workstation # [id number]
[2017-05-23] MEDS ORDERED: MAGNESIUM OXIDE (MAG-OX)400 MG TAB PO ONE (10:45)
[2017-05-23] MEDS ORDERED: morphine INJ 10 MG/ML 1ML (SYR OR VIAL) IVP ONE (11:30)
[2017-05-23] MEDS ORDERED: HEParin DRIP 25000 UNIT/500ML 500 ML IV ONE (11:53)
[2017-05-23] MEDS ORDERED: HEParin 1000 UNIT/ML (10ML VIAL) FOR BOLUS IV ONE (11:53)
[2017-05-23] MEDS ORDERED: CLOPIDOGREL 75 MG (PLAVIX) TABLET PO ONE (12:00)
[2017-05-23] MEDS ORDERED: meTOprolol SUCCINATE 100 MG (TOPROL XL) TAB PO ONE (12:15)
--- NOTE | 2017-05-23 13:23 | Cardiology History & Physical ---
HPI-Cardiology Cardiology H&P Date of Admission 05/23/17 Primary Care Physician Adan Wright MD Attending Physician Adan Wright MD Consulting Physician RALPH AMAYA MD [facility] HPI CC: Chest pain HPI: 76 yo man with known CAD who has been having intermittent chest discomfort , a feeling of heartburn, but similar to pervious angina, for approx a week. Has had unremitting chest discomfort since this am, but nearly resolved at the time of this note. Discomfort mod in intensity, burning in the epigastrium and lower mid sternal area, radiating sometimes to the L arm, sometimes associated with diaphoresis, w/o any particular aggravating or relieving factors, episodes lasting from a few min to several hours, nearly daily for the last 2 weeks. Also has slowly progressive exertional shortness of breath. Denies palp or syncope or ankle swelling or fever or chills or symptoms consistent with orthopnea/PND Review of Systems-Cardiology Review of Systems Constitutional: malaise, No weight loss Eyes: No vision change Ears/Nose/Throat: No ear discharge, No nasal drainage, No recent hearing loss Respiratory: As described under HPI Cardiovascular: As described under HPI Gastrointestinal: No constipation, No diarrhea, No nausea, No vomiting Genitourinary: No dysuria, No hematuria, No urine frequency changes, No urine coloration changes Musculoskeletal: back pain (chronic) Skin: No rash, No ulcerations Psychiatric/Neurological: No seizure, No focal weakness, No syncope Hematologic: No bleeding abnormalities ONW-Waviyg-Wzguoe Hx Patient Social History Alcohol Use: Occasionally Uses Recreational Drug Use: No Smoking Status: Current Someday Smoker Type Used: Cigars 2nd Hand Smoke Exposure: Yes Recent Foreign Travel: No Recent Infectious Disease Expo: No Immunizations Up To Date Tetanus Booster (TDap): Unknown Date of Pneumonia Vaccine: Dec 21, 2014 Past Medical History PMH As described under Assessment. Family Medical History Family Medical History: Family h/o CAD and CVA in his mother and father No premature CAD or SCD Family History: FH: COPD (chronic obstructive pulmonary disease) 19 FATHER Myocardial infarction 19 MOTHER Allergies and Home Medications Allergies Coded Allergies: Penicillins (Verified Allergy, Unknown, 02/09/15) nitroglycerin (Verified Allergy, Unknown, 02/09/15) Home Medications Amlodipine Besylate 5 Mg Tablet, 5 MG PO DAILY, (Reported) Aspirin 81 Mg Tablet.dr, 81 MG PO HS, (Reported) Atorvastatin Calcium 20 Mg Tablet, 20 MG PO Q48H, (Reported) Clopidogrel Bisulfate 75 Mg Tablet, 75 MG PO DAILY, (Reported) Enalapril Maleate 10 Mg Tablet, 10 MG PO BID, (Reported) Fish Oil/Dha/Epa 1 Each Capsule, 1,200 MG PO BID, (Reported) Metformin HCl 500 Mg Tablet, 500 MG PO BID, (Reported) Metoprolol Tartrate 100 Mg Tablet, 100 MG PO BID, (Reported) Multivits,Ca,Min/Iron/FA/Lycop 1 Each Tablet, 1 TAB PO DAILY, (Reported) Omeprazole 20 Mg Capsule.dr, 20 MG PO BID, (Reported) Physical Exam-Cardiology Physical Exam Vital Signs/I&O Vital Sign - Last 12Hours 05/23/17 05/23/17 09:55 10:12 Temp 98.0 Pulse 111 Resp 18 B/P (MAP) 197/119 Pulse Ox 98 O2 Delivery Nasal Cannula O2 Flow Rate 2.00 Capillary Refill : Less Than 3 Seconds Constitutional: AAO x 3, well-developed, well-nourished HEENT: EOMI, hearing is well preserved, No xanthelasmas are seen Neck: carotid pulses are 2 + bilaterally, with good upstrokes Respiratory: No accessory muscle use, lungs clear to percussion, lungs clear to auscultation Cardiovascular: regular rate-rhythm, S1 and S2, systolic murmur (soft OZZIE at card base) Gastrointestinal: No tender, soft, No guarding, No rebound, audible bowel sounds Extremities: No clubbing, No cyanosis, No significant edema Neurologic/Psychiatric: grossly intact, power is 5/5 both on sides Skin: No rash on exposed areas, No ulcerations on exposed areas Data Review Labs Laboratory Tests 05/23/17 10:00: White Blood Count 10.1, Red Blood Count 4.53, Hemoglobin 15.4, Hematocrit 43, Mean Corpuscular Volume 95, Mean Corpuscular Hemoglobin 34, Mean Corpuscular Hemoglobin Concent 36, Red Cell Distribution Width 13.0, Platelet Count 232, Mean Platelet Volume 10.0, Neutrophils (%) (Auto) 59, Lymphocytes (%) (Auto) 29 , Monocytes (%) (Auto) 8, Eosinophils (%) (Auto) 4, Basophils (%) (Auto) 1, Neutrophils # (Auto) 5.9, Lymphocytes # (Auto) 3.0, Monocytes # (Auto) 0.8, Eosinophils # (Auto) 0.4H, Basophils # (Auto) 0.1, Prothrombin Time 13.0, INR Comment 1.0, Activated Partial Thromboplast Time 33, Sodium Level 139, Potassium Level 3.8, Chloride Level 100, Carbon Dioxide Level 25, Anion Gap 14, Blood Urea Nitrogen 13, Creatinine 1.02, Estimat Glomerular Filtration Rate > 60 , BUN/Creatinine Ratio 13, Glucose Level 207H, Calcium Level 10.1, Magnesium Level 1.6L, Total Bilirubin 1.4H, Aspartate Amino Transf (AST/SGOT) 42H, Alanine Aminotransferase (ALT/SGPT) 36, Alkaline Phosphatase 83, Myoglobin 64.2 , Troponin I < 0.30, B-Type Natriuretic Peptide 252.3H, Total Protein 8.5H, Albumin 4.4 Laboratory Tests 05/23/17 10:00 A/P-Cardiology Assessment/Admission Diagnosis Unstable angina vs ac NSTEMI Chronic LBBB Coronary artery disease with a history of coronary artery bypass surgery consisting of left internal mammary artery graft to left anterior descending artery, saphenous vein graft to right coronary artery, saphenous vein graft to diagonal artery, saphenous vein graft to first obtuse marginal artery, saphenous vein graft to second obtuse marginal artery in 1999. Senting of prox LCX in November 2016 after he had presented with ac NSTEMI Last card cath on 03/13/17: Coronary artery disease consisting of 80% mid vessel stenosis left anterior descending artery, ostial occlusion of the right coronary artery and occlusion of an obtuse marginal system of the left circumflex. There is a widely patent stent in the proximal left circumflex artery that is known to be a Resolute 2.5 x 22 mm stent that was placed in November 2016. Two out of 4 saphenous vein grafts are occluded. One saphenous vein graft to the obtuse marginal system is widely patent. Another saphenous vein graft to the posterior descending branch of the right coronary artery is patent , but with severe stenosis at its insertion into the posterior descending branch , but the posterior descending branch itself is of a small caliber, ( approximately 1.5 mm vessel). Patent left internal mammary artery graft to left anterior descending artery. Normal global left ventricular systolic function with ejection fraction approximately 60%. Elevated left ventricular end- diastolic pressure. No significant mitral regurgitation. Subsequent to this card cath, PCI on 04/10/17: S/p successful balloon angioplasty of the site of insertion of the saphenous vein graft to the posterior descending branch with reduction of stenosis from 99% to approximately 70% and improvement of flow from PETEY-1 to PETEY-3 (normal flow) Hypertension Hyperlipidemia being treated with statin therapy and managed by Dr. Prado Diabetes mellitus, type II. Gastroesophageal reflux. Tobaccoism consisting of smoking cigars. He has again been asked to refrain from using tobacco. Carotid arterial disease, mild, per ultrasonography of December 2010. Discussion and Recomendations * Very complex management due to nature of CAD (see details above) * Treat with bb and antiplatelets and anticoag * Consider repeat cath and PCI. We reviewed and discussed the rationale, procedure, risks, benefits, potential complications, and alternatives. He understand and is considering Clinical Quality Measures AMI/AHF: ASA po Prior to arrival: RALPH Baker MD FACP [facility] May 23, 2017 13:23
[2017-05-23] MEDS ORDERED: HEParin DRIP 25000 UNIT/500ML 500 ML IV SCH (13:29)
[2017-05-23] MEDS ORDERED: HEParin 1000 UNIT/ML (10ML VIAL) FOR BOLUS IV PRN (13:30)
[2017-05-23] MEDS ORDERED: NS IV 1000 ML 1,000 ML IV SCH ×2 (13:30→18:30)
[2017-05-23] MEDS ORDERED: CATHETER FLUSH 10 ML SYR IV PRN (13:30)
[2017-05-23] MEDS ORDERED: morphine INJ 4 MG/ML 1 ML (VIAL/SYRINGE) IV PRN (13:30)
[2017-05-23] MEDS ORDERED: NITROGLYCERIN 0.4 MG SL TABS BTL 25'S SL PRN (13:30)
[2017-05-23 14:00] VITALS: BP 150/80
[2017-05-23] MEDS ORDERED: HEParin 1000 UNIT/ML (10ML VIAL) FOR BOLUS ONE ×2 (14:03→17:44)
[2017-05-23] MEDS ORDERED: HEParin (CATH LAB) 2,000 ML IV ONE (14:03)
[2017-05-23 16:00] VITALS: BP 134/85
[2017-05-23] MEDS ORDERED: MIDAZOLAM 2 MG/2 ML (VERSED) VIAL ONE (17:04)
[2017-05-23] MEDS ORDERED: diphenhydrAMINE 50 MG/ML INJ (BENADRYL) ONE (17:04)
[2017-05-23] MEDS ORDERED: fentaNYL INJECTION 100 MCG/2 ML AMP ONE (17:04)
[2017-05-23] MEDS ORDERED: EPTIFIBATIDE BOLUS 20 ML IV ONE (17:42)
[2017-05-23] MEDS ORDERED: NITROGLYCERIN DRIP 25 MG/D5W 250 ML IV ONE (18:01)
[2017-05-23] MEDS ORDERED: ASPIRIN 81 MG CHEW (CHILDREN'S ASA) ONE (18:06)
[2017-05-23] MEDS ORDERED: CLOPIDOGREL 75 MG (PLAVIX) TABLET ONE (18:06)
[2017-05-23] MEDS ORDERED: PATIENT MAY USE OWN MEDS, ALL PO SCH (18:30)
[2017-05-23 18:45] VITALS: BP 149/77
[2017-05-23 20:00] VITALS: BP 134/85
[2017-05-23] MEDS ORDERED: ATORVASTATIN 40 MG (LIPITOR) TABLET PO SCH (21:00)
[2017-05-24] VITALS: BP 140/75
--- NOTE | 2017-05-24 02:51 | CARDIAC CATHETERIZATION ---
DATE OF SERVICE: 05/23/2017 The patient is a 76-year-old man with a history of coronary artery disease and multiple percutaneous interventions, who was hospitalized with acute coronary syndrome. Given unstable symptoms, repeat cardiac catheterization was recommended. Informed consent was obtained for cardiac catheterization and possible ad-hoc coronary or graft intervention. PROCEDURE: He was brought to the cardiac catheterization laboratory in a fasting state. Right groin was prepared and draped in the usual sterile fashion. Lidocaine 1% was used for local anesthesia. Modified Seldinger technique was used to advance a 5-Welsh sheath in the right femoral artery and a 5-Welsh JR4 catheter was used for angiography of the saphenous vein graft and for angiography of the left internal mammary artery graft to left anterior descending artery. Right coronary artery was not selectively engaged at this time as this previously known to be occluded at its ostium. We used a 5-Welsh JL3.5 catheter for left coronary angiography. We then carried out percutaneous intervention of the right coronary artery, which was described below. Following completion of the percutaneous intervention to the saphenous vein graft to the right coronary artery, we carried out left heart catheterization with a 5-Welsh pigtail catheter. The left ventricular angiography was also carried out. The pigtail was then pulled back to the ascending aorta and removed. Angiography of the right femoral artery had been carried out through the sheath at the beginning of the procedure, and at the end of the procedure, Mynx was used to achieve hemostasis. He tolerated the procedure well. PERCUTANEOUS INTERVENTION TO THE SAPHENOUS VEIN GRAFT TO THE RIGHT CORONARY ARTERY: The saphenous vein graft to the right coronary artery had 90% stenosis at its insertion into the posterior descending branch of the right coronary artery. We exchanged the sheath over a wire for a 6-Welsh sheath. We used a 6-Welsh JR4 guide catheter to engage the saphenous vein graft to the right coronary artery. We tried to use this ChoICE floppy wire to cross the lesion, but this did not advance successfully. We removed the wire and used a ChoICE PT Graphix wire to cross the lesion and the tip of the vessel was placed antegradely through the proximal posterior descending branch into the mid part of the right coronary artery. We then advanced an Emerge 2.0 x 20 mm balloon which was placed across the very tight lesion at the site of the insertion of the graft with the balloon extending into the proximal part of the posterior descending branch and then into the vein graft. Balloon inflation was carried out to 12 atmospheres. The balloon was then collapsed and removed. Subsequent angiography revealed approximately 50% residual stenosis at the previous site of 90% stenosis. Flow throughout the vessel was PETEY 3. He tolerated the procedure well. He received a double bolus of Integrilin and 4000 units of intravenous heparin during the procedure. Angioplasty equipment was removed and a Mynx was used to achieve hemostasis at the end of the procedure, as described above. HEMODYNAMICS: Left ventricular end-diastolic pressure following coronary angiography was 29 mmHg. There was no significant pressure gradient on pullback across the aortic valve. Ascending aortic pressure was 171/87 with a mean of 114 mmHg. CORONARY ANGIOGRAPHY: Left main coronary artery does not exhibit significant obstructive disease. Left anterior descending artery has diffuse moderate disease in its proximal and mid portion and then appears to be occluded in its mid portion following the origin of the first diagonal branch. The left circumflex artery has a widely patent stent in its proximal portion that is known to be a Resolute 2.5 x 22 mm stent that was placed in 11/2016. An obtuse marginal branch is occluded at its ostium. The right coronary artery is known to be occluded at its ostium. SAPHENOUS VEIN GRAFT ANGIOGRAPHY: There are 4 aortocoronary saphenous vein grafts. Two are known to be previously occluded. One saphenous vein graft to an obtuse marginal branch was selectively engaged and is found to be widely patent with good distal runoff. The other patent saphenous vein graft to the posterior descending branch of the right coronary artery which had 90% stenosis at its insertion. To this, successful balloon angioplasty was carried out as described above. Following balloon angioplasty, the stenosis was reduced to approximately 50%. Two other saphenous vein grafts are known to be occluded in their ostial/proximal portions. LEFT INTERNAL MAMMARY ARTERY GRAFT ANGIOGRAPHY: Left internal mammary artery graft is widely patent to the distal left anterior descending artery with good distal runoff. LEFT VENTRICULAR ANGIOGRAPHY: Left ventricular angiography was carried out in the ovidio-posterior position. No distinct regional wall motion abnormalities are seen. Left ventricular ejection fraction is approximately 55%. There does not appear to be a significant mitral regurgitation. CONCLUSIONS: 1. Coronary artery disease primarily consisting of mid vessel occlusions of the left anterior descending artery, ostial occlusion of an obtuse marginal system of the left circumflex artery, ostial and proximal occlusion of the right coronary artery. Two out of four saphenous vein grafts are occluded. One saphenous vein graft to obtuse marginal was widely patent. Another saphenous vein graft to posterior descending branch of the right coronary artery had 90% stenosis at its insertion to which successful balloon angioplasty was carried out which reduced the 90% stenosis to approximately 50% residual. The proximal portion of the left circumflex artery has a widely patent stent that this is known to be a Resolute 2.5 x 22 mm stent that was placed in 11/2016. 2. Well-preserved global left ventricular systolic function with ejection fraction of approximately 55%. 3. No significant mitral regurgitation is seen on this study. 4. Elevated left ventricular end diastolic pressure. DISCUSSION AND RECOMMENDATIONS: His previous regimen is being continued. This consists of statins, aspirin, Plavix, beta-blockers, and KIZZY inhibitors. Beta-blockers are being increased. He has again been advised to quit tobacco use immediately and completely. He remains hospitalized after this procedure for continuing observation. Job ID: [id number] DocumentID: [id number] Dictated Date: 05/23/2017 18:53:16 Auto Body Service Mechanic Date: 05/24/2017 02:50:47 Dictated By: RALPH AMAYA MD, MA, FACP, FACC, MTDD
[2017-05-24 04:00] VITALS: BP 163/84
[2017-05-24 05:18] LABS: MEAN PLATELET VOLUME 9.6 FL (7.4-10.4); RED BLOOD COUNT 3.89 10^6/uL (4.35-5.85); RED CELL DISTRIBUTION WIDTH 13.1 % (10.0-14.5)
[2017-05-24 05:40] LABS: ANION GAP 11 MMOL/L (5-14); BLOOD UREA NITROGEN 11 MG/DL (7-18); BUN/CREATININE RATIO 13; CALCIUM 8.7 MG/DL (8.5-10.1); CARBON DIOXIDE 25 MMOL/L (21-32); CHLORIDE 103 MMOL/L (98-107); CHOLESTEROL 127 MG/DL (< 200); CREATININE SERUM 0.82 MG/DL (0.60-1.30); DIRECT LDL 63 MG/DL (1-129); GFR ESTIMATED > 60; GLUCOSE 152 MG/DL (70-105); POTASSIUM 3.4 MMOL/L (3.6-5.0); SODIUM 139 MMOL/L (135-145); TRIGLYCERIDES 122 MG/DL (<150); VLDL CHOLESTEROL 24 MG/DL (5-40)
--- NOTE | 2017-05-24 06:48 | History & Physical ---
History of Present Illness History of Present Illness Reason for visit/HPI Late Entry due to technological down time. 76 yo M with CAD, Diabetes and history of cabg admitted for chest pain that began the evening prior- Patient attributed it to GERD and went to bed. He notes when he woke up the pain was severe in central chest, around 8am he noted being diaphoretic with some radiation of pain to his back. He decided this was enough proof that it was likely his heart so he presented to the ER. Morphine did help his chest pain while in the ER and given his history of likely re-stenosis of the saphenous vein graft to the RCA- he will likely undergo a catherization to attempt angioplasty. Pt denies any other issues at this time. Denies any nausea or vomiting. Date of Admission May 23, 2017 at 12:00 Date Seen by Provider: May 23, 2017 Time Seen by Provider: 12:55 I consulted on this patient on 05/24/17 06:42 Attending Physician Adan Davidson MD Admitting Physician Adan Davidson MD Consult RALPH BRODERICK MD FACP [facility] CCDS Allergies and Home Medications Allergies Coded Allergies: Penicillins (Verified Allergy, Unknown, 02/09/15) nitroglycerin (Verified Allergy, Unknown, 02/09/15) Home Medications Amlodipine Besylate 5 Mg Tablet, 5 MG PO DAILY, (Reported) Aspirin 81 Mg Tablet.dr, 81 MG PO HS, (Reported) Atorvastatin Calcium 20 Mg Tablet, 20 MG PO SuTuTh, (Reported) Clopidogrel Bisulfate 75 Mg Tablet, 75 MG PO DAILY, (Reported) Enalapril Maleate 10 Mg Tablet, 10 MG PO BID, (Reported) Fish Oil/Dha/Epa 1 Each Capsule, 1,200 MG PO BID, (Reported) Metformin HCl 500 Mg Tablet, 500 MG PO BID, (Reported) Metoprolol Tartrate 100 Mg Tablet, 100 MG PO BID, (Reported) Multivits,Ca,Min/Iron/FA/Lycop 1 Each Tablet, 1 TAB PO DAILY, (Reported) Omeprazole 20 Mg Capsule.dr, 20 MG PO BID, (Reported) Past Htmhlhp-Regxof-Lseeic Hx Patient Social History Marrital Status: Alcohol Use: Occasionally Uses Number of Drinks Today: 2 Alcohol Beverage of Choice: [place] Recreational Drug Use: No Smoking Status: Current Someday Smoker Type Used: Cigars 2nd Hand Smoke Exposure: Yes Physical Abuse Screen: No Sexual Abuse: No Recent Foreign Travel: No Contact w/other who traveled: No Recent Hopitalizations: No Recent Infectious Disease Expo: No Immunizations Up To Date Tetanus Booster (TDap): Unknown Pediatric: No Date of Pneumonia Vaccine: Apr 25, 2014 Date of Influenza Vaccine: Apr 24, 2017 Seasonal Allergies Seasonal Allergies: No Surgeries Yes Cardiac, CABG, Gallbladder Respiratory No Currently Using CPAP: No Currently Using BIPAP: No Cardiovascular Yes Coronary Artery Disease, Heart Attack, High Cholesterol, Hypertension Neurological No Reproductive System Hx Reproductive Disorders: No Sexually Transmitted Disease: No HIV/AIDS: No Genitourinary No Gastrointestinal Yes Gastroesophageal Reflux Musculoskeletal No Endocrine History of Endocrine Disorders: Yes Endocrine Disorders: Diabetes, Non-Insulin dep HEENT History of HEENT Disorders: Yes HEENT Disorders: Cataract Loss of Vision: Denies Hearing Impairment: Denies Cancer No Psychosocial History of Psychiatric Problem: No Integumentary History of Skin or Integumenta: No Blood Transfusions History of Blood Disorders: No Adverse Reaction to a Blood Tr: No Family Medical History Family Hx: FH: COPD (chronic obstructive pulmonary disease) 19 FATHER Myocardial infarction 19 MOTHER Review of Systems Review of Systems General: No Chills, No Night Sweats, Fatigue HEENT: No Head Aches, No Visual Changes Pulmonary: No Dyspnea Cardiovascular: Chest Pain, No: Palpitations Gastrointestinal: No: Nausea, Vomiting, Abdominal Pain Genitourinary: No Dysuria, No Frequency Musculoskeletal: No: neck pain, shoulder pain, arm pain, back pain, hand pain Neurological: No: Weakness, Numbness Physical Exam Vital Signs Vital Sign - Last 12Hours 05/23/17 05/23/17 09:55 10:12 Temp 98.0 Pulse 111 Resp 18 B/P (MAP) 197/119 Pulse Ox 98 O2 Delivery Nasal Cannula O2 Flow Rate 2.00 Capillary Refill : Less Than 3 Seconds General Appearance: No Apparent Distress, WD/WN HEENT: PERRL/EOMI Neck: Normal Inspection, Non Tender Respiratory: Chest Non Tender, Lungs Clear, Normal Breath Sounds, No Accessory Muscle Use, No Respiratory Distress Cardiovascular: Regular Rate, Rhythm Gastrointestinal: Normal Bowel Sounds, Non Tender, Soft Rectal: Deferred Extremity: Non Tender, Pedal Edema Neurologic/Psychiatric: Alert, Oriented x3, Normal Mood/Affect Skin: Warm/Dry Assessment/Plan Assessment/Plan Assessment/Plan 76 yo M * chest pain- Dr. Broderick consulted- likely cardiac cath- suspect it is the saphenous vein graft to RCA *coronary artery disease- cardiology consulted *diabetes mellitus II- holding metformin for 3 days after catheterization- insulin while inpt *hypomagnesemia- replacing *hypokalemia- replacing *GERD- continue ppi *hyperlipidemia- continue statin, lipid panel obtained *HTN- continue home medications. Dispo: goal to d/c to home tomorrow pending catheterization. Problems: Clinical Quality Measures AMI/AHF: ASA po Prior to arrival: No DVT/VTE Risk/Contraindication: Risk Factor Score Per Nursin RFS Level Per Nursing on Admit: 3=High ADAN DAVIDSON MD May 24, 2017 06:48
[2017-05-24] MEDS ORDERED: KCL 20 MEQ TAB (K-DUR) PO NR (07:17)
[2017-05-24 07:41] VITALS: BP 162/72
[2017-05-24] MEDS ORDERED: MAGNESIUM OXIDE (MAG-OX)400 MG TAB PO SCH (08:00)
--- NOTE | 2017-05-24 08:42 | Discharge Inst-Cardiology ---
Discharge Inst-Cardiac Discharge Medications New, Converted or Re-Newed RX: Other Patient Instructions Patient Instructions: HOLD METFORMIN FOR 3 DAYS- MAY RESUME 05/27/2017 -follow up with Dr. Broderick's office Follow up with [facility] in 1-2 weeks. [facility] to [facility] For: chest pain Activity & Diet Discharge Diet: ADA Diet, Cardiac Diet Drink 6-8 Glasses/Fluids/Day: Yes Activity as Tolerated: Yes (advance activity- follow post cath directions) HOLGER DAVIDSON MD May 24, 2017 8:42 am
[2017-05-24] MEDS ORDERED: lisINopril 10 MG (PRINIVIL) TAB PO SCH (09:00)
[2017-05-24] MEDS ORDERED: ASPIRIN E.C. 325 MG (ECOTRIN) TABLET PO SCH (09:00)
[2017-05-24] MEDS ORDERED: CLOPIDOGREL 75 MG (PLAVIX) TABLET PO SCH (09:00)
[2017-05-24] MEDS ORDERED: meTOproloL SUCCINATE 50 MG (TOPROL XL) TAB PO SCH (09:00)
[2017-05-24] MEDS ORDERED: ASPIRIN 81 MG CHEW (CHILDREN'S ASA) PO SCH (09:00)
--- NOTE | 2017-05-24 09:13 | Progress Note-Cardiology ---
Cardiology SOAP Progress Note Subjective: Sitting up in bed. Denies any c/o CP, dyspnea or palpitations. No c/o right groin discomfort. Wants to go home. Objective: I&O/Vital Signs Vital Sign - Last 12Hours 05/24/17 05/24/17 05/24/17 05/24/17 00:00 00:00 01:00 04:00 Temp 97.2 Pulse 71 72 Resp 14 B/P (MAP) 140/75 Pulse Ox 97 O2 Delivery Nasal Cannula Room Air Room Air O2 Flow Rate 2.00 05/24/17 05/24/17 05/24/17 04:00 07:41 07:55 Temp 97.5 98.0 Pulse 80 82 80 Resp 16 12 B/P (MAP) 163/84 162/72 Pulse Ox 92 93 O2 Delivery Room Air Room Air Weight (Pounds): 202 Weight (Ounces): 8.0 Weight (Calculated Kilograms): 91.882729 Side: right Groin site without hematoma: Yes Condition: DP/PT pulses palpable, extremity w/d/p Bruising: mild bruising Constitutional: AAO x 3, well-developed, well-nourished Respiratory: No accessory muscle use, lungs clear to percussion, lungs clear to auscultation, other (exp wheeze; non-prod cough) Cardiovascular: regular rate-rhythm, S1 and S2, systolic murmur (soft OZZIE at card base) Gastrointestional: No tender, soft, No guarding, No rebound, audible bowel sounds Extremities: No clubbing, No cyanosis, No significant edema Neurologic/Psychiatric: grossly intact, power is 5/5 both on sides Skin: No rash on exposed areas, No ulcerations on exposed areas Results/Procedures: Labs Laboratory Tests 05/24/17 05:10: White Blood Count 10.0, Red Blood Count 3.89L, Hemoglobin 13.4, Hematocrit 37L, Mean Corpuscular Volume 96, Mean Corpuscular Hemoglobin 34, Mean Corpuscular Hemoglobin Concent 36, Red Cell Distribution Width 13.1, Platelet Count 189, Mean Platelet Volume 9.6, Sodium Level 139, Potassium Level 3.4L, Chloride Level 103, Carbon Dioxide Level 25, Anion Gap 11, Blood Urea Nitrogen 11, Creatinine 0.82, Estimat Glomerular Filtration Rate > 60, BUN/Creatinine Ratio 13, Glucose Level 152H, Calcium Level 8.7, Triglycerides Level 122, Cholesterol Level 127, LDL Cholesterol Direct 63, VLDL Cholesterol 24, HDL Cholesterol 37L Procedures S/P cardiac cath with successful intervention on 05-23-17. A/P: Assessment: Unstable angina - resolved following successful PCI to SVG-RCA on 05/23/17 CAD: H/O PCI on 04/10/17: Successful balloon angioplasty of the site of insertion of the saphenous vein graft to the posterior descending branch with reduction of stenosis from 99% to approximately 70% and improvement of flow from PETEY-1 to PETEY-3 (normal flow) Most recent Cardiac cath of May 23, 2017: Coronary artery disease primarily consisting of mid vessel occlusions of the left anterior descending artery, ostial occlusion of an obtuse marginal system of the left circumflex artery, ostial and proximal occlusion of the right coronary artery. Two out of four saphenous vein grafts are occluded. One saphenous vein graft to obtuse marginal was widely patent. Another saphenous vein graft to posterior descending branch of the right coronary artery had 90% stenosis at its insertion to which successful balloon angioplasty was carried out which reduced the 90% stenosis to approximately 50% residual. The proximal portion of the left circumflex artery has a widely patent stent that this is known to be a Resolute 2.5 x 22 mm stent that was placed in 11/2016. Well-preserved global left ventricular systolic function with ejection fraction of approximately 55%. No significant mitral regurgitation is seen on this study. Elevated left ventricular end diastolic pressure. Coronary artery disease with a history of coronary artery bypass surgery consisting of left internal mammary artery graft to left anterior descending artery, saphenous vein graft to right coronary artery, saphenous vein graft to diagonal artery, saphenous vein graft to first obtuse marginal artery, saphenous vein graft to second obtuse marginal artery in 1999. Stenting of prox LCX in November 2016 after he had presented with ac NSTEMI Chronic LBBB Hypertension Hyperlipidemia being treated with statin therapy and managed by his PCP Diabetes mellitus, type II. Gastroesophageal reflux. Tobaccoism consisting of smoking cigars. He has again been asked to refrain from using tobacco. Carotid arterial disease, mild, per ultrasonography of December 2010. Hypokalemia - replaced Plan: * No further c/o chest discomfort * Likely discharge home today * Continue current medication regimen including ASA, Plavix, statin and BB * We will increase his statin from 20mg every other day to 40 mg daily - he is agreeable * Out pt f/u in a week * Advise smoking cessation Physician Assessment Physician Assessment No cp or palp or syncope or shortness of breath or groin discomfort Lungs: clear Cor: reg with soft OZZIE at card base Ext: no c/c/e; mild bruising of the R groin w/o hematoma or evidence of distal vascular compromise A&R * As documented in our note above that I updated (italics) and as noted below * I discussed in detail with him and his the findings and interventions of 05/24/17 and answered their questions * Risk factor mod reviewed, including smoking cessation and efforts at wgt loss and good control of DM II * Outpatient f/u advised Clinical Quality Measures AMI/AHF: ASA po Prior to arrival: SHANT Moreno HOST/[employer]ESS [employer]OUND May 24, 2017 09:13 RALPH AMAYA MD FACP [facility] CCDS May 24, 2017 10:23
[2017-05-24] MEDS ORDERED: ATOR40TA PO (09:29)
--- NOTE | 2017-05-24 10:27 | Discharge Inst-Post CATH ---
Discharge Inst-CATH Post Cardiac Cath D/C Inst Follow Up/Plan Hold METFORMIN until the evening of 05/25/17 F/u with Dr Broderick in one to two weeks CARDIAC CATH DISCHARGE INSTRUCTIONS *Hold Metformin for 48 hours post heart cath. ACTIVITY * Go Home directly and rest. * Limit activity of the leg (or wrist if it was used) for 7 days including aerobics, swimming, jogging, bicycling, etc. * Restrict stair-climbing for 7 days if possible, if not, climb up with your non -cath leg, then bring together on the same step. * Avoid lifting, pushing, pulling or excessive movement of the affected extremity for 7 days. * Customary sexual activity may be resumed after 2 days-use caution not to use a position that strains or causes pain to the affected extremity. * No driving for 24 hours. * NO SMOKING. * Avoid straining for bowel movements for 7 days. * Gentle walking on level ground is allowed. * Returning to work will depend on the type of procedure and the results. Your doctor will discuss this with you. CALL YOUR DOCTOR FOR ANY OF THE FOLLOWING: *If bleeding from the puncture site occurs- Apply gentle pressure to site with clean cloth and call your doctor or EMS. * If a knot or lump forms under the skin, increases in size, or causes pain. * If bruising appears to be worsening or moving further down your leg instead of disappearing. * Temperature above 101 F. CARE OF YOUR GROIN INCISION; * Bruising or purple discoloration of the skin near the puncture site is common. * You may shower only, no bathtub bathing for 5 days. Be careful to avoid slipping as your leg may feel stiff. * If a closure device was used on your femoral artery, please see the attached guide regarding care of the device and your leg. * REMOVE the dressing from your groin the next day after your procedure in the shower. CARE OF YOUR WRIST INCISION; * Bruising or purple discoloration of the skin near the puncture site is common. * You may shower. * DO NOT submerge wrist. * Remove dressing in 24 hours. RALPH BRODERICK MD [facility] CCDS May 24, 2017 10:27
[2017-05-24] MEDS ORDERED: inSUlin ASPART (NovoLOG) 1 UNIT/0.01 ML (CHARGE PER UNIT) SC SCH (11:00)
[2017-05-24 11:05] VITALS: BP 162/72
--- NOTE | 2017-05-25 16:54 | Discharge Summary ---
Diagnosis/Chief Complaint Date of Admission May 23, 2017 at 12:00 Date of Discharge May 24, 2017 at 11:05 Reason Hospital Visit Late Entry due to technological down time. 76 yo M with CAD, Diabetes and history of cabg admitted for chest pain that began the evening prior- Patient attributed it to GERD and went to bed. He notes when he woke up the pain was severe in central chest, around 8am he noted being diaphoretic with some radiation of pain to his back. He decided this was enough proof that it was likely his heart so he presented to the ER. Morphine did help his chest pain while in the ER and given his history of likely re-stenosis of the saphenous vein graft to the RCA- he will likely undergo a catherization to attempt angioplasty. Pt denies any other issues at this time. Denies any nausea or vomiting. Discharge Summary Hospital Course Labs Laboratory Tests 05/23/17 10:00: Eosinophils # (Auto) 0.4H, Glucose Level 207H, Magnesium Level 1.6L, Total Bilirubin 1.4H, Aspartate Amino Transf (AST/SGOT) 42H, B-Type Natriuretic Peptide 252.3H, Total Protein 8.5H 05/24/17 05:10: Glucose Level 152H, Red Blood Count 3.89L, Hematocrit 37L, Potassium Level 3.4L , HDL Cholesterol 37L Procedures None. Discharge Physical Examination Allergies: Coded Allergies: Penicillins (Verified Allergy, Unknown, 02/09/15) nitroglycerin (Verified Allergy, Unknown, 02/09/15) Vitals & I&Os Vital Signs Date Time Temp Pulse Resp B/P (MAP) Pulse Ox O2 Delivery O2 Flow Rate FiO2 05/24/17 11:05 80 12 162/72 93 Room Air 05/24/17 07:41 98.0 05/24/17 00:00 2.00 Discharge Home Medications Reviewed and agree with Discharge Medication list on patient's Discharge Instruction sheet Instructions to Patient/Family Please see electronic discharge instructions given to patient. Clinical Quality Measures AMI/AHF: ASA po Prior to arrival: No DVT/VTE Risk/Contraindication: Risk Factor Score Per Nursin RFS Level Per Nursing on Admit: 3=High HOLGER DAVIDSON MD May 25, 2017 16:54
== END 2017-05-24 11:05 | disposition home or self-care (01) | DRG 251 ==
LOC: EDUNIT# 09:55 → ER 09:56 → ICU 12:00
PROVIDERS: ADMIT Family Medicine; ATTEND Family Medicine
PROC: 02703ZZ Dilation of Coronary Artery, One Artery, Percutaneous Approach (ICD-10-PCS; principal; 2017-05-23)
PROC: 4A023N7 Measurement of Cardiac Sampling and Pressure, Left Heart, Percutaneous Approach (ICD-10-PCS; 2017-05-23)
PROC: B2151ZZ Fluoroscopy of Left Heart using Low Osmolar Contrast (ICD-10-PCS; 2017-05-23)
PROC: B2101ZZ Fluoroscopy of Single Coronary Artery using Low Osmolar Contrast (ICD-10-PCS; 2017-05-23)
PROC: B2131ZZ Fluoroscopy of Multiple Coronary Artery Bypass Grafts using Low Osmolar Contrast (ICD-10-PCS; 2017-05-23)
PROC: B2181ZZ Fluoroscopy of Left Internal Mammary Bypass Graft using Low Osmolar Contrast (ICD-10-PCS; 2017-05-23)
DX: T82.857A Stenosis of other cardiac prosthetic devices, implants and grafts, initial encounter (principal); I25.110 Atherosclerotic heart disease of native coronary artery with unstable angina pectoris; E83.42 Hypomagnesemia; E87.6 Hypokalemia; I44.7 Left bundle-branch block, unspecified; I10 Essential (primary) hypertension; E78.5 Hyperlipidemia, unspecified; E11.9 Type 2 diabetes mellitus without complications; K21.9 Gastro-esophageal reflux disease without esophagitis; F17.290 Nicotine dependence, other tobacco product, uncomplicated; Z95.1 Presence of aortocoronary bypass graft; Z95.5 Presence of coronary angioplasty implant and graft
CPT/HCPCS: 36415; 71010; 80048; 80053; 80061; 83735; 83874; 83880; 84484; 85025; 85027; 85610; 85730; 93005; 93041

== ENCOUNTER 2017-07-05 11:10 | Emergency (ER) | payer MEDICARE ==
[~2017-07-05] VITALS: Ht 175.3 cm; Wt 88.5 kg
[~2017-07-05 11:10] MED LIST changes: +ATOR40TA PO; +METO100T12 PO; -METO100T2 PO
[2017-07-05 11:37] LABS: BASOPHILS % (AUTO) 0 % (0-10); EOSINOPHILS # (AUTO) 0.3 10^3/uL (0.0-0.3); EOSINOPHILS % (AUTO) 3 % (0-10); HEMATOCRIT 37 % (40-54); HEMOGLOBIN 13.5 G/DL (13.3-17.7); LYMPHOCYTES # (AUTO) 2.3 X 10^3 (1.0-4.0); LYMPHOCYTES % (AUTO) 22 % (12-44); MEAN CORPUSCULAR HEMOGLOBIN 35 PG (25-34); MEAN CORPUSCULAR HGB CONC 37 G/DL (32-36); MEAN CORPUSCULAR VOLUME 94 FL (80-99); MEAN PLATELET VOLUME 9.9 FL (7.4-10.4); MONOCYTES # (AUTO) 0.8 X 10^3 (0.0-1.0); MONOCYTES % (AUTO) 8 % (0-12); NEUTROPHILS % (AUTO) 67 % (42-75); PLATELET COUNT 213 10^3/uL (130-400); RED BLOOD COUNT 3.91 10^6/uL (4.35-5.85); RED CELL DISTRIBUTION WIDTH 12.5 % (10.0-14.5); WHITE BLOOD COUNT 10.5 10^3/uL (4.3-11.0)
[2017-07-05] MEDS ORDERED: ASPIRIN 81 MG CHEW (CHILDREN'S ASA) PO ONE (11:45)
[2017-07-05] MEDS ORDERED: morphine INJ 10 MG/ML 1ML (SYR OR VIAL) IVP ONE (11:45)
[2017-07-05 11:46] LABS: PROTHROMBIN TIME PATIENT 13.7 SEC (12.2-14.7)
--- NOTE | 2017-07-05 11:55 | ED Chest Pain ---
General Chief Complaint: Chest Pain Stated Complaint: CP History of Present Illness Time seen by provider: 11:25 Initial Comments 76-year-old male presents for chest pain. He has had a recent cardiac history including a catheterization in April 2017. He was evaluated by Dr. Broderick on Sunday of this week, started on Imdur 60 mg 1 by mouth daily. He is on aspirin daily and takes it in the evening. He denies any diaphoresis, shortness of breath, nausea or vomiting with the chest pain. He reports the pain to be midsternal with some radiation into his left scapula at times. The current pain is been present since 0800 today, he rates it at 5/10. He had some pain over the last 2 days but it was more intermittent and resolved. He denies any increased activity or stress in his life. Timing/Duration: 4-6 hours Severity/Quality: moderate Location: substernal Allergies and Home Medications Allergies Coded Allergies: Penicillins (Verified Allergy, Unknown, 02/09/15) nitroglycerin (Verified Allergy, Unknown, 02/09/15) Home Medications Amlodipine Besylate 5 Mg Tablet, 5 MG PO DAILY, (Reported) Aspirin 81 Mg Tablet., 81 MG PO HS, (Reported) Atorvastatin Calcium 40 Mg Tablet, 40 MG PO HS, #30 Ref 5 Prescribed by: SHANT KIRBY on 05/24/17 0929 Clopidogrel Bisulfate 75 Mg Tablet, 75 MG PO DAILY, (Reported) Enalapril Maleate 10 Mg Tablet, 10 MG PO BID, (Reported) Fish Oil/Dha/Epa 1 Each Capsule, 1,200 MG PO BID, (Reported) Metformin HCl 500 Mg Tablet, 500 MG PO BID, (Reported) Metoprolol Tartrate 100 Mg Tablet, 100 MG PO BID, (Reported) Multivits,Ca,Min/Iron/FA/Lycop 1 Each Tablet, 1 TAB PO DAILY, (Reported) Omeprazole 20 Mg Capsule., 20 MG PO BID, (Reported) Review of Systems Constitutional: no symptoms reported, see HPI Cardiovascular: See HPI, Chest Pain Gastrointestinal: No Symptoms Reported, See HPI All Other Systems Reviewed Negative Unless Noted: Yes Past Rrfuewp-Qzehrh-Lloneu Hx Patient Social History Alcohol Beverage of Choice: [place] Type Used: Cigars 2nd Hand Smoke Exposure: Yes Recent Foreign Travel: No Contact w/Someone Who Travel: No Recent Hopitalizations: No Immunizations Up To Date Tetanus Booster (TDap): Unknown PED Vaccines UTD: No Date of Pneumonia Vaccine: Apr 25, 2014 Date of Influenza Vaccine: Apr 24, 2017 Seasonal Allergies Seasonal Allergies: No Surgeries History of Surgeries: Yes Surgeries: Cardiac, CABG, Gallbladder Respiratory History of Respiratory Disorde: No Respiratory Disorders: COPD Currently Using CPAP: No Currently Using BIPAP: No Cardiovascular History of Cardiac Disorders: Yes Cardiac Disorders: Coronary Artery Disease, Heart Attack, High Cholesterol, Hypertension Neurological History of Neurological Disord: No Reproductive System Hx Reproductive Disorders: No Sexually Transmitted Disease: No HIV/AIDS: No Genitourinary History of Genitourinary Disor: No Gastrointestinal History of Gastrointestinal Di: Yes Gastrointestinal Disorders: Gastroesophageal Reflux Musculoskeletal History of Musculoskeletal Dis: No Endocrine History of Endocrine Disorders: Yes Endocrine Disorders: Diabetes, Non-Insulin dep HEENT History of HEENT Disorders: Yes HEENT Disorders: Cataract Loss of Vision: Denies Hearing Impairment: Denies Cancer History of Cancer: No Psychosocial History of Psychiatric Problem: No Integumentary History of Skin or Integumenta: No Blood Transfusions History of Blood Disorders: No Adverse Reaction to a Blood Tr: No Reviewed Nursing Assessment Reviewed/Agree w Nursing PMH: Yes Family Medical History Family Medial History: FH: COPD (chronic obstructive pulmonary disease) 19 FATHER Myocardial infarction 19 MOTHER Physical Exam Vital Signs Vital Sign - Last 12Hours 07/05/17 11:10 Temp 97.5 Pulse 94 Resp 18 B/P (MAP) 165/79 (107) Pulse Ox 97 O2 Delivery Room Air Capillary Refill : General Appearance: No Apparent Distress, WD/WN HEENT: PERRL/EOMI, TMs Normal, Normal ENT Inspection, Pharynx Normal Neck: Full Range of Motion, Normal Inspection, Non Tender, Supple Respiratory: Chest Non Tender, Lungs Clear, Normal Breath Sounds Cardiovascular: Regular Rate, Rhythm, No Murmur, Normal Peripheral Pulses (1+ pitting edema bilateral lower extremities), Other Gastrointestinal: Normal Bowel Sounds, No Organomegaly, No Pulsatile Mass, Non Tender, Soft Extremity: Normal Capillary Refill, Normal Inspection, Normal Range of Motion, No Calf Tenderness Neurologic/Psychiatric: Alert, Oriented x3, No Motor/Sensory Deficits, Normal Mood/Affect Skin: Normal Color, Warm/Dry Lymphatic: No Adenopathy Progress/Results/Core Measures Results/Orders Lab Results Laboratory Tests Test 07/05/17 11:25 07/05/17 14:55 Range/Units White Blood Count 10.5 4.3-11.0 10^3/uL Red Blood Count 3.91 L 4.35-5.85 10^6/uL Hemoglobin 13.5 13.3-17.7 G/DL Hematocrit 37 L 40-54 % Mean Corpuscular Volume 94 80-99 FL Mean Corpuscular Hemoglobin 35 H 25-34 PG Mean Corpuscular Hemoglobin Concent 37 H 32-36 G/DL Red Cell Distribution Width 12.5 10.0-14.5 % Platelet Count 213 130-400 10^3/uL Mean Platelet Volume 9.9 7.4-10.4 FL Neutrophils (%) (Auto) 67 42-75 % Lymphocytes (%) (Auto) 22 12-44 % Monocytes (%) (Auto) 8 0-12 % Eosinophils (%) (Auto) 3 0-10 % Basophils (%) (Auto) 0 0-10 % Neutrophils # (Auto) 7.0 1.8-7.8 X 10^3 Lymphocytes # (Auto) 2.3 1.0-4.0 X 10^3 Monocytes # (Auto) 0.8 0.0-1.0 X 10^3 Eosinophils # (Auto) 0.3 0.0-0.3 10^3/uL Basophils # (Auto) 0.0 0.0-0.1 10^3/uL Prothrombin Time 13.7 12.2-14.7 SEC INR Comment 1.0 0.8-1.4 Activated Partial Thromboplast Time 32 24-35 SEC Sodium Level 138 135-145 MMOL/L Potassium Level 3.8 3.6-5.0 MMOL/L Chloride Level 104 98-107 MMOL/L Carbon Dioxide Level 21 21-32 MMOL/L Anion Gap 13 5-14 MMOL/L Blood Urea Nitrogen 16 7-18 MG/DL Creatinine 1.08 0.60-1.30 MG/DL Estimat Glomerular Filtration Rate > 60 BUN/Creatinine Ratio 15 Glucose Level 207 H 70-105 MG/DL Calcium Level 8.9 8.5-10.1 MG/DL Magnesium Level 1.1 L 1.8-2.4 MG/DL Total Bilirubin 1.5 H 0.1-1.0 MG/DL Aspartate Amino Transf (AST/SGOT) 35 H 5-34 U/L Alanine Aminotransferase (ALT/SGPT) 38 0-55 U/L Alkaline Phosphatase 87 40-136 U/L Myoglobin 58.6 10.0-92.0 NG/ML Troponin I < 0.30 < 0.30 <0.30 NG/ML Total Protein 7.5 6.4-8.2 GM/DL Albumin 4.1 3.2-4.5 GM/DL My Orders Orders - [employer] Cbc With Automated Diff (07/05/17 11:22) Magnesium (07/05/17 11:22) Chest 1 View, Ap/Pa Only (07/05/17 11:22) Ekg Tracing (07/05/17:) Cardiac Profile 1 (07/05/17:) Comprehensive Metabolic Panel (07/05/17 11:22) Myoglobin Serum (07/05/17 11:22) Protime With Inr (07/05/17:) Partial Thromboplastin Time (07/05/17:) O2 (07/05/17 11:22) Monitor-Rhythm Ecg Trace Only (07/05/17 11:22) Saline Lock/Iv-Start (07/05/17 11:22) Morphine Injection (Morphine Injection (07/05/17 11:45) Aspirin Chewable Tablet (Baby Aspirin Ch (07/05/17 11:45) Troponin I (07/05/17 15:00) General/Regular (07/05/17 Lunch) Magnesium Oxide Tablet (Mag Ox Tablet) (07/05/17 13:15) Medications Given in ED Current Medications Medications Dose Ordered Sig/Denise Route Start Time Stop Time Status Last Admin Dose Admin Aspirin 324 mg ONCE ONCE PO 07/05/17 11:45 07/05/17 11:46 DC 07/05/17 12:06 324 MG Magnesium Oxide 400 mg ONCE ONCE PO 07/05/17 13:15 07/05/17 13:16 DC 07/05/17 13:32 400 MG Morphine Sulfate 2 mg ONCE ONCE IVP 07/05/17 11:45 07/05/17 11:46 DC 07/05/17 12:07 2 MG Vital Signs/I&O Vital Sign - Last 12Hours 07/05/17 07/05/17 07/05/17 11:10 12:06 12:07 Temp 97.5 97.5 97.5 Pulse 94 Resp 18 B/P (MAP) 165/79 (107) Pulse Ox 97 O2 Delivery Room Air Progress Note : Time: 11:25 Progress Note Initial evaluation completed. Chest pain workup started. EKG essentially unchanged from previous in April. Will await lab results. Integument a monitor. Aspirin 324 mg by mouth. 1145 morphine 2 mg IV for pain. 1210 patient reports pain has resolved since having the morphine. Labs are essentially normal, awaiting troponin, magnesium is low at 1.1, and glucose is elevated at 207. Patient reports having a peanut butter and jelly see much this morning for breakfast. Discussed patient with Dr. Toribio, assessment and plan of care reviewed. He concurred with treatment thus far, no additional recommendations at this time. 1245 patient continues to be free of chest pain at this time, vital signs are stable, normotensive. [address] Broderick by phone about patient, concurred with treatment plan and assessment thus far. Recommended obtaining repeat troponin at 1500, if negative consider discharge to home if patient continues to be free of chest pain. He will follow up with patient tomorrow in his office. 1315 patient requesting lunch, no chest pain, nausea or vomiting. Lunch tray to be ordered for patient. Discussed with patient that we will be getting labs at 1500 and then make plans for admission or discharge. Patient in agreement with this. Will give magnesium 400 mg. 1400 patient ate lunch tray, no complaints of chest pain. Pt will discuss low magnesium level with Dr. Broderick tomorrow. 1500 patient continues to be free of chest pain, no requests at this time. Follow up troponin drawn. 1545 troponin remains less than 0.3. Discharge plans reviewed with Dr. Toribio , agreed with plan of care. Discharge instructions and return precautions reviewed with the patient and his . All questions answered. ECG Initial ECG Impression Date: Jul 05, 2017 Initial ECG Impression Time: 11:17 Initial ECG Rate: 101 Initial ECG Rhythm: S.Tach Initial ECG Intervals: Normal Initial ECG Intervals Ventricular bigeminy, incomplete left bundle branch block. ME 180, QRSD 110, QT 380, QTC 493. Terrell P 59, QRS -23, T 159. Initial ECG Impression: Nonspecific Changes Initial ECG Comparisson: Unchanged Comment reviewed with Dr. Toribio along with previous one from 05/23/17, agreed with interpretation. Diagnostic Imaging Diagonstic Imaging: Xray Plain Films/CT/US/NM/MRI: chest Comments NAME: SEVERO BELL [facility] REC#: [id number] PT STATUS: REG ER : 1940 PHYSICIAN: ROXANNA INGRAM ADMIT DATE: 07/05/17/ER Draft Date of Exam:07/05/17 CHEST 1 VIEW, AP/PA ONLY EXAMINATION: Portable semierect AP chest at 1151 hours. INDICATION: Chest pain. FINDINGS: The cardiomegaly, sternotomy wires, surgical clips, and the coarse perihilar markings seen on the prior exam of 05/23/2017 are again evident and no different. There is still no evidence for failure, pneumonia, or for a pleural effusion to indicate an acute abnormality. The mediastinum is not widened. The osseous structures are intact. IMPRESSION: There is cardiomegaly, evidence of prior cardiac surgery, and chronic pulmonary disease. There is no acute cardiopulmonary abnormality noted, however. Dictated on workstation # [id number] Dict: 07/05/17 1200 Trans: 07/05/17 1215 [id number] Interpreted by: MELINA PARKER MD Electronically signed by: Reviewed: Reviewed by Me Departure Impression Impression: Primary Impression: Chest pain Qualified Codes: R07.9 - Chest pain, unspecified Additional Impression: Hypomagnesemia Disposition: 01 HOME, SELF-CARE Condition: Improved Departure-Patient Inst. Decision time for Depature: 15:50 Referrals: HOLGER DAVIDSON MD (PCP/Family) Primary Care Physician Patient Instructions: Chest Pain (DC) Add. Discharge Instructions: Continue taking all medications, as prescribed. Follow up with Dr. Broderick Fri Jul 06 at 10:00 am. Return to Emergency Dept for chest pain, shortness of breath, difficulty swallowing, arm or neck pain, or any other concerns. All discharge instructions reviewed with patient and/or family. Voiced understanding. Copy Copies To 1: HOLGER DAVIDSON MD Copies To 2: RALPH BRODERICK MD FACP [facility] ROXANNA INGRAM Jul 05, 2017 11:55
[2017-07-05 11:59] LABS: ALANINE AMINOTRANSFERASE 38 U/L (0-55); ALBUMIN 4.1 GM/DL (3.2-4.5); ALKALINE PHOSPHATASE 87 U/L (40-136); BILIRUBIN,TOTAL 1.5 MG/DL (0.1-1.0); BUN/CREATININE RATIO 15; CALCIUM 8.9 MG/DL (8.5-10.1); CARBON DIOXIDE 21 MMOL/L (21-32); CHLORIDE 104 MMOL/L (98-107); CREATININE SERUM 1.08 MG/DL (0.60-1.30); GFR ESTIMATED > 60; GLUCOSE 207 MG/DL (70-105); MAGNESIUM 1.1 MG/DL (1.8-2.4); POTASSIUM 3.8 MMOL/L (3.6-5.0); SODIUM 138 MMOL/L (135-145); TOTAL PROTEIN 7.5 GM/DL (6.4-8.2)
[2017-07-05 12:12] LABS: MYOGLOBIN SERUM 58.6 NG/ML (10.0-92.0)
--- NOTE | 2017-07-05 12:16 | Diagnostic Imaging Report ---
EXAMINATION: Portable semierect AP chest at 1151 hours. INDICATION: Chest pain. FINDINGS: The cardiomegaly, sternotomy wires, surgical clips, and the coarse perihilar markings seen on the prior exam of 05/23/2017 are again evident and no different. There is still no evidence for failure, pneumonia, or for a pleural effusion to indicate an acute abnormality. The mediastinum is not widened. The osseous structures are intact. IMPRESSION: There is cardiomegaly, evidence of prior cardiac surgery, and chronic pulmonary disease. There is no acute cardiopulmonary abnormality noted, however. Dictated by: Dictated on workstation # [id number]
[2017-07-05] MEDS ORDERED: MAGNESIUM OXIDE (MAG-OX)400 MG TAB PO ONE (13:15)
[2017-07-05 16:25] VITALS: BP 152/72
--- OUTSIDE RECORDS SUMMARY | 2017-07-05 21:11 | XMS REPORT | Continuity of Care Document ---
Author Author [facility] Organization [facility] Address Unknown Phone Unavailable Allergies Active Description Code Type Severity Reaction Onset Reported/Identified Relationship to Patient Clinical Status Yes nitroglycerin [id number] Drug Allergy Unknown N/A 02/09/2015 Yes Penicillins [id number] Drug Allergy Unknown N/A 02/09/2015 Medications There is no data. Problems Date Dx Coded Attending Type Code Diagnosis Diagnosed By 02/09/2015 Ot 414.01 02/09/2015 Ot 433.10 02/09/2015 Ot 414.01 02/09/2015 Ot 433.10 02/10/2015 MONIQUE AN FACC, RALPH FACP CCDS Ot 250.00 DIAB DENNIS WO COMPL, TYPE II OR UNSPEC TY 02/10/2015 MONIUQE AN FACC, RALPH FACP CCDS Ot 272.4 HYPERLIPIDEMIA NEC/NOS 02/10/2015 MONIQUE AN FACC, RALPH FACP CCDS Ot 305.1 TOBACCO USE DISORDER 02/10/2015 MONIQUE AN FACC, RALPH FACP CCDS Ot 401.9 HYPERTENSION NOS 02/10/2015 MONIQUE AN FACC, ALI FACP CCDS Ot 414.00 CORON ATHEROSCLER NOS TYPE VESSEL, NATIV 02/10/2015 MONIQUE AN FACC, RALPH FACP CCDS Ot 433.10 CAROTID ARTERY OCCLUSION W O CEREBRAL IN 02/10/2015 MONIQUE AN FACC, RALPH FACP CCDS Ot 530.81 ESOPHAGEAL REFLUX 02/10/2015 MONIQUE AN FACC, RALPH FACP CCDS Ot 782.4 JAUNDICE NOS 02/10/2015 MONIQUE AN FACC, RALPH FACP CCDS Ot 786.59 CHEST PAIN NEC 02/10/2015 MONIQUE AN FACC, RALPH FACP CCDS Ot V45.81 AORTOCORONARY BYPASS 02/25/2016 Ot 414.01 CORONARY ATHEROSCLEROSIS OF [place] CORON 02/25/2016 Ot 433.10 CAROTID ARTERY OCCLUSION W O CEREBRAL IN 03/02/2016 EDUIN AN, KHANG Sierra Ot F17.200 NICOTINE DEPENDENCE, UNSPECIFIED, UNCOMP 03/02/2016 KHANG DENNY MD Ot R05 COUGH 03/22/2016 KHANG DENNY MD Ot F17.200 NICOTINE DEPENDENCE, UNSPECIFIED, UNCOMP 03/22/2016 KHANG DENNY MD Ot R05 COUGH 03/28/2016 KHANG DENNY MD Ot F17.200 NICOTINE DEPENDENCE, UNSPECIFIED, UNCOMP 03/28/2016 KHANG DENNY MD Ot R05 COUGH 12/21/2016 KHANG DENNY MD Ot F17.200 NICOTINE DEPENDENCE, UNSPECIFIED, UNCOMP 12/21/2016 KHANG DENNY MD Ot R05 COUGH 12/23/2016 KHANG DENNY MD Ot A64 UNSPECIFIED SEXUALLY TRANSMITTED DISEASE 12/23/2016 KHANG DENNY MD Ot E11.9 TYPE 2 DIABETES MELLITUS WITHOUT COMPLIC 12/23/2016 KHANG DENNY MD Ot E78.00 PURE HYPERCHOLESTEROLEMIA, UNSPECIFIED 12/23/2016 KHANG DENNY MD Ot F17.290 NICOTINE DEPENDENCE, OTHER TOBACCO PRODU 12/23/2016 KHANG DENNY MD Ot I10 ESSENTIAL (PRIMARY) HYPERTENSION 12/23/2016 KHANG DENNY MD Ot I21.4 NON-ST ELEVATION (NSTEMI) MYOCARDIAL INF 12/23/2016 KHANG DENNY MD Ot I25.10 ATHSCL HEART DISEASE OF [place] CORONARY 12/23/2016 KHANG DENNY MD Ot I25.2 OLD MYOCARDIAL INFARCTION 12/23/2016 KHANG DENNY MD Ot I25.810 ATHEROSCLEROSIS OF CABG W/O ANGINA PECTO 12/23/2016 KHANG DENNY MD Ot 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 12/23/2016 KHANG DENNY MD Ot K21.9 GASTRO-ESOPHAGEAL REFLUX DISEASE WITHOUT 12/23/2016 KHANG DENNY MD Ot Q60.0 RENAL AGENESIS, UNILATERAL 12/23/2016 KHANG DENNY MD Ot Z72.89 OTHER PROBLEMS RELATED TO LIFESTYLE 12/23/2016 KHANG DENNY MD Ot Z79.84 SENIOR CARE (CURRENT) USE OF ORAL HYPOGLYC 12/23/2016 KHANG DENNY MD Ot Z95.1 PRESENCE OF AORTOCORONARY BYPASS GRAFT 03/13/2017 KHANG DENNY MD Ot F17.200 NICOTINE DEPENDENCE, UNSPECIFIED, UNCOMP 03/13/2017 KHANG DENNY MD Ot R05 COUGH 03/13/2017 MONIQUE AN FACC, ALI FACP CCDS Ot E11.9 TYPE 2 DIABETES MELLITUS WITHOUT COMPLIC 03/13/2017 MONIQUE AN FACC, ALI FACP CCDS Ot E78.5 HYPERLIPIDEMIA, UNSPECIFIED 03/13/2017 MONIQUE AN FACC, ALI FACP CCDS Ot I10 ESSENTIAL (PRIMARY) HYPERTENSION 03/13/2017 MONIQUE AN FACC, ALI FACP CCDS Ot I25.10 ATHSCL HEART DISEASE OF [place] CORONARY 03/13/2017 MONIQUE AN FACC, ALI FACP CCDS Ot 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 03/13/2017 MONIQUE AN FACC, ALI FACP CCDS Ot K21.9 GASTRO-ESOPHAGEAL REFLUX DISEASE WITHOUT 03/13/2017 MONIQUE AN FACC, ALI FACP CCDS Ot R06.02 SHORTNESS OF BREATH 03/13/2017 MONIQUE AN FACC, ALI FACP CCDS Ot T82.857A STENOSIS OF OTHER CARDIAC PROSTH DEV/GRF 03/13/2017 MONIQUE AN FACC, ALI FACP CCDS Ot Z72.0 TOBACCO USE 03/13/2017 MONIQUE AN FACC, ALI FACP CCDS Ot Z79.84 OFFICE CORRESPONDENT (CURRENT) USE OF ORAL HYPOGLYC 03/13/2017 MONIQUE AN FACC, ALI FACP CCDS Ot Z79.899 OTHER SENIOR CARE (CURRENT) DRUG THERAPY 03/13/2017 MONIQUE AN FACC, RALPH FACP CCDS Ot Z95.5 PRESENCE OF CORONARY ANGIOPLASTY IMPLANT 03/21/2017 MONIQUE AN FACC, RALPH FACP CCDS Ot E11.9 TYPE 2 DIABETES MELLITUS WITHOUT COMPLIC 03/21/2017 MONIQUE AN FACC, RALPH FACP CCDS Ot E78.5 HYPERLIPIDEMIA, UNSPECIFIED 03/21/2017 MONIQUE AN FACC, ALI FACP CCDS Ot I10 ESSENTIAL (PRIMARY) HYPERTENSION 03/21/2017 MONIQUE AN FACC, ALI FACP CCDS Ot I25.10 ATHSCL HEART DISEASE OF [place] CORONARY 03/21/2017 MONIQUE AN FACC, ALI FACP CCDS Ot 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 03/21/2017 MONIQUE AN FACC, ALI FACP CCDS Ot K21.9 GASTRO-ESOPHAGEAL REFLUX DISEASE WITHOUT 03/21/2017 MONIQUE AN FACC, ALI FACP CCDS Ot R06.02 SHORTNESS OF BREATH 03/21/2017 MONIQUE AN FACC, RALPH FACP CCDS Ot T82.857A STENOSIS OF OTHER CARDIAC PROSTH DEV/GRF 03/21/2017 MONIQUE AN FACC, ALI FACP CCDS Ot Z72.0 TOBACCO USE 03/21/2017 MONIQUE AN FACC, ALI FACP CCDS Ot Z79.84 SENIOR CARE (CURRENT) USE OF ORAL HYPOGLYC 03/21/2017 MONIQUE AN FACC, ALI FACP CCDS Ot Z79.899 OTHER OFFICE CORRESPONDENT (CURRENT) DRUG THERAPY 03/21/2017 MONIQUE AN FACC, RALPH FACP CCDS Ot Z95.5 PRESENCE OF CORONARY ANGIOPLASTY IMPLANT 04/11/2017 MONIQUE AN FACC, ALI FACP CCDS Ot E11.9 TYPE 2 DIABETES MELLITUS WITHOUT COMPLIC 04/11/2017 MONIQUE AN FACC, ALI FACP CCDS Ot E78.5 HYPERLIPIDEMIA, UNSPECIFIED 04/11/2017 MONIQUE AN FACC, ALI FACP CCDS Ot I10 ESSENTIAL (PRIMARY) HYPERTENSION 04/11/2017 MONIQUE AN FACC, ALI FACP CCDS Ot I25.10 ATHSCL HEART DISEASE OF [place] CORONARY 04/11/2017 MONIQUE AN FACC, ALI FACP CCDS Ot I25.700 ATHEROSCLEROSIS OF CABG, UNSP, W UNSTABL 04/11/2017 MONIQUE AN FACC, ALI FACP CCDS Ot I65.29 OCCLUSION AND STENOSIS OF UNSPECIFIED CA 04/11/2017 MONIQUE AN FACC, ALI FACP CCDS Ot K21.9 GASTRO-ESOPHAGEAL REFLUX DISEASE WITHOUT 04/11/2017 MONIQUE AN FACC, ALI FACP CCDS Ot Z72.0 TOBACCO USE 04/11/2017 MONIQUE AN FACC, ALI FACP CCDS Ot Z79.84 OFFICE CORRESPONDENT (CURRENT) USE OF ORAL HYPOGLYC 04/11/2017 MONIQUE AN FACC, ALI FACP CCDS Ot Z79.899 OTHER SENIOR CARE (CURRENT) DRUG THERAPY 04/11/2017 MONIQUE AN FACC, ALI FACP CCDS Ot Z95.5 PRESENCE OF CORONARY ANGIOPLASTY IMPLANT 05/24/2017 HOLGER DAVIDSON MD Ot E11.9 TYPE 2 DIABETES MELLITUS WITHOUT COMPLIC 05/24/2017 HOLGER DAVIDSON MD Ot E78.5 HYPERLIPIDEMIA, UNSPECIFIED 05/24/2017 HOLGER DAVIDSON MD Ot E83.42 HYPOMAGNESEMIA 05/24/2017 HOLGER DAVIDSON MD, Ot E87.6 HYPOKALEMIA 05/24/2017 HOLGER DAVIDSON MD, Ot F17.290 NICOTINE DEPENDENCE, OTHER TOBACCO PRODU 05/24/2017 HOLGER DAVIDSON MD, Ot I10 ESSENTIAL (PRIMARY) HYPERTENSION 05/24/2017 HOLGER DAVIDSON MD, Ot I25.110 ATHSCL HEART DISEASE OF [place] COR ART W 05/24/2017 HOLGER DAVIDSON MD, Ot I44.7 LEFT BUNDLE-BRANCH BLOCK, UNSPECIFIED 05/24/2017 HOLGER DAVIDSON MD, Ot K21.9 GASTRO-ESOPHAGEAL REFLUX DISEASE WITHOUT 05/24/2017 HOLGER DAVIDSON MD, Ot T82.857A STENOSIS OF OTHER CARDIAC PROSTH DEV/GRF 05/24/2017 HOLGER DAVIDSON MD, Ot Z95.1 PRESENCE OF AORTOCORONARY BYPASS GRAFT 05/24/2017 HOLGER DAVIDSON MD, Ot Z95.5 PRESENCE OF CORONARY ANGIOPLASTY IMPLANT Procedures Code Description Performed By Performed [place] [id number] DILATION OF 1 COR ART WITH DRUG-ELUT INT 12/22/2016 [id number] MEASURE OF CARDIAC SAMPL PRESSURE, L H 12/22/2016 [id number] FLUOROSCOPY OF MULT COR ART USING L OSM 12/22/2016 [id number] FLUOROSCOPY OF LEFT HEART USING LOW OSMO 12/22/2016 [id number] FLUOROSCOPY OF L INT MAMM GRAFT USING L 12/22/2016 [id number] FLUOROSCOPY OF OTHER BYPASS GRAFT USING 12/22/2016 [id number] FLUOROSCOPY OF THORACIC AORTA USING LOW 12/22/2016 [id number] DILATION OF CORONARY ARTERY, ONE ARTERY, 05/23/2017 [id number] MEASURE OF CARDIAC SAMPL PRESSURE, L H 05/23/2017 [id number] FLUOROSCOPY OF SINGLE CORONARY ARTERY US 05/23/2017 [id number] FLUOROSCOPY OF MULT COR A GRAFT USING L 05/23/2017 [id number] FLUOROSCOPY OF LEFT HEART USING LOW OSMO 05/23/2017 [id number] FLUOROSCOPY OF L INT MAMM GRAFT USING L 05/23/2017 Results Test Result Range Complete blood count (CBC) with automated white blood cell (WBC) differential - 12/21/16 13:56 Blood leukocytes automated count (number/volume) 10.8 10*3/uL 4.3-11.0 Blood erythrocytes automated count (number/volume) 4.44 10*6/uL 4.35-5.85 Venous blood hemoglobin measurement (mass/volume) 15.0 g/dL 13.3-17.7 Blood hematocrit (volume fraction) 41 % 40-54 Automated erythrocyte mean corpuscular volume 92 [foz_us] 80-99 Automated erythrocyte mean corpuscular hemoglobin (mass per erythrocyte) 34 pg 25-34 Automated erythrocyte mean corpuscular hemoglobin concentration measurement ( mass/volume) 37 g/dL 32-36 Automated erythrocyte distribution width ratio 12.9 % 10.0-14.5 Automated blood platelet count (count/volume) 207 10*3/uL 130-400 Automated blood platelet mean volume measurement 10.2 [foz_us] 7.4-10.4 Automated blood neutrophils/100 leukocytes 67 % 42-75 Automated blood lymphocytes/100 leukocytes 23 % 12-44 Blood monocytes/100 leukocytes 8 % 0-12 Automated blood eosinophils/100 leukocytes 2 % 0-10 Automated blood basophils/100 leukocytes 0 % 0-10 Blood neutrophils automated count (number/volume) 7.3 10*3 1.8-7.8 Blood lymphocytes automated count (number/volume) 2.4 10*3 1.0-4.0 Blood monocytes automated count (number/volume) 0.9 10*3 0.0-1.0 Automated eosinophil count 0.2 10*3/uL 0.0-0.3 Automated blood basophil count (count/volume) 0.0 10*3/uL 0.0-0.1 PT panel in platelet poor plasma by coagulation assay - 12/21/16 13:56 Prothrombin time (PT) in platelet poor plasma by coagulation assay 12.7 s 12.2-14.7 INR in platelet poor plasma or blood by coagulation assay 1.0 0.8-1.4 Activated partial thromboplastin time (aPTT) in platelet poor plasma bycoagulation assay - 12/21/16 13:56 Activated partial thromboplastin time (aPTT) in platelet poor plasma bycoagulation assay 30 s 24-35 Comprehensive metabolic panel - 12/21/16 13:56 Serum or plasma sodium measurement (moles/volume) 138 mmol/L 135-145 Serum or plasma potassium measurement (moles/volume) 3.6 mmol/L 3.6-5.0 Serum or plasma chloride measurement (moles/volume) 101 mmol/L 98-107 Carbon dioxide 25 mmol/L 21-32 Serum or plasma anion gap determination (moles/volume) 12 mmol/L 5-14 Serum or plasma urea nitrogen measurement (mass/volume) 13 mg/dL 7-18 Serum or plasma creatinine measurement (mass/volume) 1.15 mg/dL 0.60-1.30 Serum or plasma urea nitrogen/creatinine mass ratio 11 NRG Serum or plasma creatinine measurement with calculation of estimated glomerular filtration rate > NRG Serum or plasma glucose measurement (mass/volume) 289 mg/dL 70-105 Serum or plasma calcium measurement (mass/volume) 9.1 mg/dL 8.5-10.1 Serum or plasma total bilirubin measurement (mass/volume) 1.3 mg/dL 0.1-1.0 Serum or plasma alkaline phosphatase measurement (enzymatic activity/volume) 76 U/L 40-136 Serum or plasma aspartate aminotransferase measurement (enzymatic activity/ volume) 43 U/L 5-34 Serum or plasma alanine aminotransferase measurement (enzymatic activity/volume ) 36 U/L 0-55 Serum or plasma protein measurement (mass/volume) 7.6 g/dL 6.4-8.2 Serum or plasma albumin measurement (mass/volume) 4.2 g/dL 3.2-4.5 Magnesium - 12/21/16 13:56 Magnesium 1.4 mg/dL 1.8-2.4 Serum or plasma creatine kinase measurement (enzymatic activity/volume) - 12/21 13:56 Serum or plasma creatine kinase measurement (enzymatic activity/volume) 83 U/L 30-200 Serum or plasma creatine kinase MB measurement (enzymatic activity/volume) - 13:56 Serum or plasma creatine kinase MB measurement (enzymatic activity/volume) 1.7 ng/mL <6.6 Serum or plasma troponin i.cardiac measurement (mass/volume) - 12/21/16 13:56 Serum or plasma troponin i.cardiac measurement (mass/volume) < ng/ mL <0.30 Serum or plasma lithium measurement (moles/volume) - 12/21/16 13:56 BNP level 93.4 pg/mL <100.0 Serum or plasma amylase measurement (enzymatic activity/volume) - 12/21/16 13: 56 Serum or plasma amylase measurement (enzymatic activity/volume) 50 U /L 25-125 Lipase - 12/21/16 13:56 Lipase 38 U/L 8-78 Complete blood count (CBC) with automated white blood cell (WBC) differential - 12/22/16 03:23 Blood leukocytes automated count (number/volume) 10.2 10*3/uL 4.3-11.0 Blood erythrocytes automated count (number/volume) 4.11 10*6/uL 4.35-5.85 Venous blood hemoglobin measurement (mass/volume) 13.9 g/dL 13.3-17.7 Blood hematocrit (volume fraction) 39 % 40-54 Automated erythrocyte mean corpuscular volume 94 [foz_us] 80-99 Automated erythrocyte mean corpuscular hemoglobin (mass per erythrocyte) 34 pg 25-34 Automated erythrocyte mean corpuscular hemoglobin concentration measurement ( mass/volume) 36 g/dL 32-36 Automated erythrocyte distribution width ratio 12.8 % 10.0-14.5 Automated blood platelet count (count/volume) 180 10*3/uL 130-400 Automated blood platelet mean volume measurement 10.3 [foz_us] 7.4-10.4 Automated blood neutrophils/100 leukocytes 66 % 42-75 Automated blood lymphocytes/100 leukocytes 22 % 12-44 Blood monocytes/100 leukocytes 10 % 0-12 Automated blood eosinophils/100 leukocytes 2 % 0-10 Automated blood basophils/100 leukocytes 0 % 0-10 Blood neutrophils automated count (number/volume) 6.7 10*3 1.8-7.8 Blood lymphocytes automated count (number/volume) 2.2 10*3 1.0-4.0 Blood monocytes automated count (number/volume) 1.0 10*3 0.0-1.0 Automated eosinophil count 0.3 10*3/uL 0.0-0.3 Automated blood basophil count (count/volume) 0.0 10*3/uL 0.0-0.1 Comprehensive metabolic panel - 12/22/16 03:23 Serum or plasma sodium measurement (moles/volume) 141 mmol/L 135-145 Serum or plasma potassium measurement (moles/volume) 3.6 mmol/L 3.6-5.0 Serum or plasma chloride measurement (moles/volume) 104 mmol/L 98-107 Carbon dioxide 26 mmol/L 21-32 Serum or plasma anion gap determination (moles/volume) 11 mmol/L 5-14 Serum or plasma urea nitrogen measurement (mass/volume) 11 mg/dL 7-18 Serum or plasma creatinine measurement (mass/volume) 0.90 mg/dL 0.60-1.30 Serum or plasma urea nitrogen/creatinine mass ratio 12 NRG Serum or plasma creatinine measurement with calculation of estimated glomerular filtration rate > NRG Serum or plasma glucose measurement (mass/volume) 145 mg/dL 70-105 Serum or plasma calcium measurement (mass/volume) 8.7 mg/dL 8.5-10.1 Serum or plasma total bilirubin measurement (mass/volume) 1.6 mg/dL 0.1-1.0 Serum or plasma alkaline phosphatase measurement (enzymatic activity/volume) 49 U/L 40-136 Serum or plasma aspartate aminotransferase measurement (enzymatic activity/ volume) 36 U/L 5-34 Serum or plasma alanine aminotransferase measurement (enzymatic activity/volume ) 30 U/L 0-55 Serum or plasma protein measurement (mass/volume) 6.4 g/dL 6.4-8.2 Serum or plasma albumin measurement (mass/volume) 3.5 g/dL 3.2-4.5 Magnesium - 12/22/16 03:23 Magnesium 1.8 mg/dL 1.8-2.4 Serum or plasma troponin i.cardiac measurement (mass/volume) - 12/22/16 08:10 Serum or plasma troponin i.cardiac measurement (mass/volume) 0.93 ng /mL <0.30 Automated blood complete blood count (hemogram) panel - 12/23/16 03:56 Blood leukocytes automated count (number/volume) 11.9 10*3/uL 4.3-11.0 Blood erythrocytes automated count (number/volume) 4.46 10*6/uL 4.35-5.85 Venous blood hemoglobin measurement (mass/volume) 14.9 g/dL 13.3-17.7 Blood hematocrit (volume fraction) 42 % 40-54 Automated erythrocyte mean corpuscular volume 94 [foz_us] 80-99 Automated erythrocyte mean corpuscular hemoglobin (mass per erythrocyte) 33 pg 25-34 Automated erythrocyte mean corpuscular hemoglobin concentration measurement ( mass/volume) 35 g/dL 32-36 Automated erythrocyte distribution width ratio 12.9 % 10.0-14.5 Automated blood platelet count (count/volume) 196 10*3/uL 130-400 Automated blood platelet mean volume measurement 10.4 [foz_us] 7.4-10.4 Whole blood basic metabolic panel - 12/23/16 03:56 Serum or plasma sodium measurement (moles/volume) 140 mmol/L 135-145 Serum or plasma potassium measurement (moles/volume) 3.6 mmol/L 3.6-5.0 Serum or plasma chloride measurement (moles/volume) 102 mmol/L 98-107 Carbon dioxide 23 mmol/L 21-32 Serum or plasma anion gap determination (moles/volume) 15 mmol/L 5-14 Serum or plasma urea nitrogen measurement (mass/volume) 11 mg/dL 7-18 Serum or plasma creatinine measurement (mass/volume) 1.15 mg/dL 0.60-1.30 Serum or plasma urea nitrogen/creatinine mass ratio 10 NRG Serum or plasma creatinine measurement with calculation of estimated glomerular filtration rate > NRG Serum or plasma glucose measurement (mass/volume) 160 mg/dL 70-105 Serum or plasma calcium measurement (mass/volume) 9.1 mg/dL 8.5-10.1 Lipid 1996 panel - 12/23/16 03:56 Serum or plasma triglyceride measurement (mass/volume) 152 mg/dL <150 Serum or plasma cholesterol measurement (mass/volume) 148 mg/dL < 200 Serum or plasma cholesterol in HDL measurement (mass/volume) 41 mg/ dL 40-60 Cholesterol in LDL [mass/volume] in serum or plasma by direct assay 78 mg/dL 1-129 Serum or plasma cholesterol in VLDL measurement (mass/volume) 30 mg/ dL 5-40 Automated blood complete blood count (hemogram) panel - 03/13/17 08:30 Blood leukocytes automated count (number/volume) 10.2 10*3/uL 4.3-11.0 Blood erythrocytes automated count (number/volume) 4.60 10*6/uL 4.35-5.85 Venous blood hemoglobin measurement (mass/volume) 15.4 g/dL 13.3-17.7 Blood hematocrit (volume fraction) 43 % 40-54 Automated erythrocyte mean corpuscular volume 94 [foz_us] 80-99 Automated erythrocyte mean corpuscular hemoglobin (mass per erythrocyte) 34 pg 25-34 Automated erythrocyte mean corpuscular hemoglobin concentration measurement ( mass/volume) 36 g/dL 32-36 Automated erythrocyte distribution width ratio 13.1 % 10.0-14.5 Automated blood platelet count (count/volume) 230 10*3/uL 130-400 Automated blood platelet mean volume measurement 10.0 [foz_us] 7.4-10.4 PT panel in platelet poor plasma by coagulation assay - 03/13/17 08:30 Prothrombin time (PT) in platelet poor plasma by coagulation assay 13.0 s 12.2-14.7 INR in platelet poor plasma or blood by coagulation assay 1.0 0.8-1.4 Activated partial thromboplastin time (aPTT) in platelet poor plasma bycoagulation assay - 03/13/17 08:30 Activated partial thromboplastin time (aPTT) in platelet poor plasma bycoagulation assay 29 s 24-35 Comprehensive metabolic panel - 03/13/17 08:30 Serum or plasma sodium measurement (moles/volume) 139 mmol/L 135-145 Serum or plasma potassium measurement (moles/volume) 3.8 mmol/L 3.6-5.0 Serum or plasma chloride measurement (moles/volume) 100 mmol/L 98-107 Carbon dioxide 23 mmol/L 21-32 Serum or plasma anion gap determination (moles/volume) 16 mmol/L 5-14 Serum or plasma urea nitrogen measurement (mass/volume) 10 mg/dL 7-18 Serum or plasma creatinine measurement (mass/volume) 1.20 mg/dL 0.60-1.30 Serum or plasma urea nitrogen/creatinine mass ratio 8 NRG Serum or plasma creatinine measurement with calculation of estimated glomerular filtration rate 59 NRG Serum or plasma glucose measurement (mass/volume) 171 mg/dL 70-105 Serum or plasma calcium measurement (mass/volume) 9.4 mg/dL 8.5-10.1 Serum or plasma total bilirubin measurement (mass/volume) 1.2 mg/dL 0.1-1.0 Serum or plasma alkaline phosphatase measurement (enzymatic activity/volume) 79 U/L 40-136 Serum or plasma aspartate aminotransferase measurement (enzymatic activity/ volume) 36 U/L 5-34 Serum or plasma alanine aminotransferase measurement (enzymatic activity/volume ) 33 U/L 0-55 Serum or plasma protein measurement (mass/volume) 7.5 g/dL 6.4-8.2 Serum or plasma albumin measurement (mass/volume) 4.3 g/dL 3.2-4.5 Lipid 1996 panel - 03/13/17 08:30 Serum or plasma triglyceride measurement (mass/volume) 317 mg/dL <150 Serum or plasma cholesterol measurement (mass/volume) 156 mg/dL < 200 Serum or plasma cholesterol in HDL measurement (mass/volume) 44 mg/ dL 40-60 Cholesterol in LDL [mass/volume] in serum or plasma by direct assay 74 mg/dL 1-129 Serum or plasma cholesterol in VLDL measurement (mass/volume) 63 mg/ dL 5-40 Methicillin resistant Staphylococcus aureus (MRSA) screening culture - 08:30 Methicillin resistant Staphylococcus aureus (MRSA) screening culture NEG NRG Automated blood complete blood count (hemogram) panel - 04/10/17 07:06 Blood leukocytes automated count (number/volume) 10.3 10*3/uL 4.3-11.0 Blood erythrocytes automated count (number/volume) 4.66 10*6/uL 4.35-5.85 Venous blood hemoglobin measurement (mass/volume) 15.5 g/dL 13.3-17.7 Blood hematocrit (volume fraction) 44 % 40-54 Automated erythrocyte mean corpuscular volume 94 [foz_us] 80-99 Automated erythrocyte mean corpuscular hemoglobin (mass per erythrocyte) 33 pg 25-34 Automated erythrocyte mean corpuscular hemoglobin concentration measurement ( mass/volume) 35 g/dL 32-36 Automated erythrocyte distribution width ratio 12.9 % 10.0-14.5 Automated blood platelet count (count/volume) 214 10*3/uL 130-400 Automated blood platelet mean volume measurement 10.1 [foz_us] 7.4-10.4 PT panel in platelet poor plasma by coagulation assay - 04/10/17 07:06 Prothrombin time (PT) in platelet poor plasma by coagulation assay 12.6 s 12.2-14.7 INR in platelet poor plasma or blood by coagulation assay 0.9 0.8-1.4 Activated partial thromboplastin time (aPTT) in platelet poor plasma bycoagulation assay - 04/10/17 07:06 Activated partial thromboplastin time (aPTT) in platelet poor plasma bycoagulation assay 31 s 24-35 Comprehensive metabolic panel - 04/10/17 07:06 Serum or plasma sodium measurement (moles/volume) 138 mmol/L 135-145 Serum or plasma potassium measurement (moles/volume) 4.0 mmol/L 3.6-5.0 Serum or plasma chloride measurement (moles/volume) 99 mmol/L 98-107 Carbon dioxide 24 mmol/L 21-32 Serum or plasma anion gap determination (moles/volume) 15 mmol/L 5-14 Serum or plasma urea nitrogen measurement (mass/volume) 11 mg/dL 7-18 Serum or plasma creatinine measurement (mass/volume) 1.18 mg/dL 0.60-1.30 Serum or plasma urea nitrogen/creatinine mass ratio 9 NRG Serum or plasma creatinine measurement with calculation of estimated glomerular filtration rate 60 NRG Serum or plasma glucose measurement (mass/volume) 173 mg/dL 70-105 Serum or plasma calcium measurement (mass/volume) 9.9 mg/dL 8.5-10.1 Serum or plasma total bilirubin measurement (mass/volume) 1.1 mg/dL 0.1-1.0 Serum or plasma alkaline phosphatase measurement (enzymatic activity/volume) 78 U/L 40-136 Serum or plasma aspartate aminotransferase measurement (enzymatic activity/ volume) 32 U/L 5-34 Serum or plasma alanine aminotransferase measurement (enzymatic activity/volume ) 32 U/L 0-55 Serum or plasma protein measurement (mass/volume) 7.9 g/dL 6.4-8.2 Serum or plasma albumin measurement (mass/volume) 4.2 g/dL 3.2-4.5 Lipid 1996 panel - 04/10/17 07:06 Serum or plasma triglyceride measurement (mass/volume) 344 mg/dL <150 Serum or plasma cholesterol measurement (mass/volume) 156 mg/dL < 200 Serum or plasma cholesterol in HDL measurement (mass/volume) 38 mg/ dL 40-60 Cholesterol in LDL [mass/volume] in serum or plasma by direct assay 73 mg/dL 1-129 Serum or plasma cholesterol in VLDL measurement (mass/volume) 69 mg/ dL 5-40 Methicillin resistant Staphylococcus aureus (MRSA) screening culture - 07:06 Methicillin resistant Staphylococcus aureus (MRSA) screening culture NEG NRG Capillary blood glucose measurement by glucometer (mass/volume) - 04/10/17 11: 41 Capillary blood glucose measurement by glucometer (mass/volume) 154 mg/dL 70-110 Capillary blood glucose measurement by glucometer (mass/volume) - 04/10/17 15: 58 Capillary blood glucose measurement by glucometer (mass/volume) 188 mg/dL 70-110 Capillary blood glucose measurement by glucometer (mass/volume) - 04/10/17 21: 03 Capillary blood glucose measurement by glucometer (mass/volume) 219 mg/dL 70-110 Capillary blood glucose measurement by glucometer (mass/volume) - 04/11/17 05: 08 Capillary blood glucose measurement by glucometer (mass/volume) 173 mg/dL 70-110 Automated blood complete blood count (hemogram) panel - 04/11/17 06:10 Blood leukocytes automated count (number/volume) 8.6 10*3/uL 4.3-11.0 Blood erythrocytes automated count (number/volume) 3.84 10*6/uL 4.35-5.85 Venous blood hemoglobin measurement (mass/volume) 12.8 g/dL 13.3-17.7 Blood hematocrit (volume fraction) 33 % 40-54 Automated erythrocyte mean corpuscular volume 96 [foz_us] 80-99 Automated erythrocyte mean corpuscular hemoglobin (mass per erythrocyte) 33 pg 25-34 Automated erythrocyte mean corpuscular hemoglobin concentration measurement ( mass/volume) 35 g/dL 32-36 Automated erythrocyte distribution width ratio 12.8 % 10.0-14.5 Automated blood platelet count (count/volume) 158 10*3/uL 130-400 Automated blood platelet mean volume measurement 9.4 [foz_us] 7.4-10.4 Whole blood basic metabolic panel - 04/11/17 06:10 Serum or plasma sodium measurement (moles/volume) 138 mmol/L 135-145 Serum or plasma potassium measurement (moles/volume) 3.7 mmol/L 3.6-5.0 Serum or plasma chloride measurement (moles/volume) 105 mmol/L 98-107 Carbon dioxide 23 mmol/L 21-32 Serum or plasma anion gap determination (moles/volume) 10 mmol/L 5-14 Serum or plasma urea nitrogen measurement (mass/volume) 13 mg/dL 7-18 Serum or plasma creatinine measurement (mass/volume) 0.94 mg/dL 0.60-1.30 Serum or plasma urea nitrogen/creatinine mass ratio 14 NRG Serum or plasma creatinine measurement with calculation of estimated glomerular filtration rate > NRG Serum or plasma glucose measurement (mass/volume) 160 mg/dL 70-105 Serum or plasma calcium measurement (mass/volume) 8.5 mg/dL 8.5-10.1 Complete blood count (CBC) with automated white blood cell (WBC) differential - 05/23/17 10:00 Blood leukocytes automated count (number/volume) 10.1 10*3/uL 4.3-11.0 Blood erythrocytes automated count (number/volume) 4.53 10*6/uL 4.35-5.85 Venous blood hemoglobin measurement (mass/volume) 15.4 g/dL 13.3-17.7 Blood hematocrit (volume fraction) 43 % 40-54 Automated erythrocyte mean corpuscular volume 95 [foz_us] 80-99 Automated erythrocyte mean corpuscular hemoglobin (mass per erythrocyte) 34 pg 25-34 Automated erythrocyte mean corpuscular hemoglobin concentration measurement ( mass/volume) 36 g/dL 32-36 Automated erythrocyte distribution width ratio 13.0 % 10.0-14.5 Automated blood platelet count (count/volume) 232 10*3/uL 130-400 Automated blood platelet mean volume measurement 10.0 [foz_us] 7.4-10.4 Automated blood neutrophils/100 leukocytes 59 % 42-75 Automated blood lymphocytes/100 leukocytes 29 % 12-44 Blood monocytes/100 leukocytes 8 % 0-12 Automated blood eosinophils/100 leukocytes 4 % 0-10 Automated blood basophils/100 leukocytes 1 % 0-10 Blood neutrophils automated count (number/volume) 5.9 10*3 1.8-7.8 Blood lymphocytes automated count (number/volume) 3.0 10*3 1.0-4.0 Blood monocytes automated count (number/volume) 0.8 10*3 0.0-1.0 Automated eosinophil count 0.4 10*3/uL 0.0-0.3 Automated blood basophil count (count/volume) 0.1 10*3/uL 0.0-0.1 PT panel in platelet poor plasma by coagulation assay - 05/23/17 10:00 Prothrombin time (PT) in platelet poor plasma by coagulation assay 13.0 s 12.2-14.7 INR in platelet poor plasma or blood by coagulation assay 1.0 0.8-1.4 Activated partial thromboplastin time (aPTT) in platelet poor plasma bycoagulation assay - 05/23/17 10:00 Activated partial thromboplastin time (aPTT) in platelet poor plasma bycoagulation assay 33 s 24-35 Comprehensive metabolic panel - 05/23/17 10:00 Serum or plasma sodium measurement (moles/volume) 139 mmol/L 135-145 Serum or plasma potassium measurement (moles/volume) 3.8 mmol/L 3.6-5.0 Serum or plasma chloride measurement (moles/volume) 100 mmol/L 98-107 Carbon dioxide 25 mmol/L 21-32 Serum or plasma anion gap determination (moles/volume) 14 mmol/L 5-14 Serum or plasma urea nitrogen measurement (mass/volume) 13 mg/dL 7-18 Serum or plasma creatinine measurement (mass/volume) 1.02 mg/dL 0.60-1.30 Serum or plasma urea nitrogen/creatinine mass ratio 13 NRG Serum or plasma creatinine measurement with calculation of estimated glomerular filtration rate > NRG Serum or plasma glucose measurement (mass/volume) 207 mg/dL 70-105 Serum or plasma calcium measurement (mass/volume) 10.1 mg/dL 8.5-10.1 Serum or plasma total bilirubin measurement (mass/volume) 1.4 mg/dL 0.1-1.0 Serum or plasma alkaline phosphatase measurement (enzymatic activity/volume) 83 U/L 40-136 Serum or plasma aspartate aminotransferase measurement (enzymatic activity/ volume) 42 U/L 5-34 Serum or plasma alanine aminotransferase measurement (enzymatic activity/volume ) 36 U/L 0-55 Serum or plasma protein measurement (mass/volume) 8.5 g/dL 6.4-8.2 Serum or plasma albumin measurement (mass/volume) 4.4 g/dL 3.2-4.5 Magnesium - 05/23/17 10:00 Magnesium 1.6 mg/dL 1.8-2.4 Serum or plasma troponin i.cardiac measurement (mass/volume) - 05/23/17 10:00 Serum or plasma troponin i.cardiac measurement (mass/volume) < ng/ mL <0.30 Myoglobin, serum - 05/23/17 10:00 Myoglobin, serum 64.2 ng/mL 10.0-92.0 Serum or plasma lithium measurement (moles/volume) - 05/23/17 10:00 BNP level 252.3 pg/mL <100.0 Automated blood complete blood count (hemogram) panel - 05/24/17 05:10 Blood leukocytes automated count (number/volume) 10.0 10*3/uL 4.3-11.0 Blood erythrocytes automated count (number/volume) 3.89 10*6/uL 4.35-5.85 Venous blood hemoglobin measurement (mass/volume) 13.4 g/dL 13.3-17.7 Blood hematocrit (volume fraction) 37 % 40-54 Automated erythrocyte mean corpuscular volume 96 [foz_us] 80-99 Automated erythrocyte mean corpuscular hemoglobin (mass per erythrocyte) 34 pg 25-34 Automated erythrocyte mean corpuscular hemoglobin concentration measurement ( mass/volume) 36 g/dL 32-36 Automated erythrocyte distribution width ratio 13.1 % 10.0-14.5 Automated blood platelet count (count/volume) 189 10*3/uL 130-400 Automated blood platelet mean volume measurement 9.6 [foz_us] 7.4-10.4 Whole blood basic metabolic panel - 05/24/17 05:10 Serum or plasma sodium measurement (moles/volume) 139 mmol/L 135-145 Serum or plasma potassium measurement (moles/volume) 3.4 mmol/L 3.6-5.0 Serum or plasma chloride measurement (moles/volume) 103 mmol/L 98-107 Carbon dioxide 25 mmol/L 21-32 Serum or plasma anion gap determination (moles/volume) 11 mmol/L 5-14 Serum or plasma urea nitrogen measurement (mass/volume) 11 mg/dL 7-18 Serum or plasma creatinine measurement (mass/volume) 0.82 mg/dL 0.60-1.30 Serum or plasma urea nitrogen/creatinine mass ratio 13 NRG Serum or plasma creatinine measurement with calculation of estimated glomerular filtration rate > NRG Serum or plasma glucose measurement (mass/volume) 152 mg/dL 70-105 Serum or plasma calcium measurement (mass/volume) 8.7 mg/dL 8.5-10.1 Lipid 1996 panel - 05/24/17 05:10 Serum or plasma triglyceride measurement (mass/volume) 122 mg/dL <150 Serum or plasma cholesterol measurement (mass/volume) 127 mg/dL < 200 Serum or plasma cholesterol in HDL measurement (mass/volume) 37 mg/ dL 40-60 Cholesterol in LDL [mass/volume] in serum or plasma by direct assay 63 mg/dL 1-129 Serum or plasma cholesterol in VLDL measurement (mass/volume) 24 mg/ dL 5-40 Complete blood count (CBC) with automated white blood cell (WBC) differential - 07/05/17 11:25 Blood leukocytes automated count (number/volume) 10.5 10*3/uL 4.3-11.0 Blood erythrocytes automated count (number/volume) 3.91 10*6/uL 4.35-5.85 Venous blood hemoglobin measurement (mass/volume) 13.5 g/dL 13.3-17.7 Blood hematocrit (volume fraction) 37 % 40-54 Automated erythrocyte mean corpuscular volume 94 [foz_us] 80-99 Automated erythrocyte mean corpuscular hemoglobin (mass per erythrocyte) 35 pg 25-34 Automated erythrocyte mean corpuscular hemoglobin concentration measurement ( mass/volume) 37 g/dL 32-36 Automated erythrocyte distribution width ratio 12.5 % 10.0-14.5 Automated blood platelet count (count/volume) 213 10*3/uL 130-400 Automated blood platelet mean volume measurement 9.9 [foz_us] 7.4-10.4 Automated blood neutrophils/100 leukocytes 67 % 42-75 Automated blood lymphocytes/100 leukocytes 22 % 12-44 Blood monocytes/100 leukocytes 8 % 0-12 Automated blood eosinophils/100 leukocytes 3 % 0-10 Automated blood basophils/100 leukocytes 0 % 0-10 Blood neutrophils automated count (number/volume) 7.0 10*3 1.8-7.8 Blood lymphocytes automated count (number/volume) 2.3 10*3 1.0-4.0 Blood monocytes automated count (number/volume) 0.8 10*3 0.0-1.0 Automated eosinophil count 0.3 10*3/uL 0.0-0.3 Automated blood basophil count (count/volume) 0.0 10*3/uL 0.0-0.1 PT panel in platelet poor plasma by coagulation assay - 07/05/17 11:25 Prothrombin time (PT) in platelet poor plasma by coagulation assay 13.7 s 12.2-14.7 INR in platelet poor plasma or blood by coagulation assay 1.0 0.8-1.4 Activated partial thromboplastin time (aPTT) in platelet poor plasma bycoagulation assay - 07/05/17 11:25 Activated partial thromboplastin time (aPTT) in platelet poor plasma bycoagulation assay 32 s 24-35 Comprehensive metabolic panel - 07/05/17 11:25 Serum or plasma sodium measurement (moles/volume) 138 mmol/L 135-145 Serum or plasma potassium measurement (moles/volume) 3.8 mmol/L 3.6-5.0 Serum or plasma chloride measurement (moles/volume) 104 mmol/L 98-107 Carbon dioxide 21 mmol/L 21-32 Serum or plasma anion gap determination (moles/volume) 13 mmol/L 5-14 Serum or plasma urea nitrogen measurement (mass/volume) 16 mg/dL 7-18 Serum or plasma creatinine measurement (mass/volume) 1.08 mg/dL 0.60-1.30 Serum or plasma urea nitrogen/creatinine mass ratio 15 NRG Serum or plasma creatinine measurement with calculation of estimated glomerular filtration rate > NRG Serum or plasma glucose measurement (mass/volume) 207 mg/dL 70-105 Serum or plasma calcium measurement (mass/volume) 8.9 mg/dL 8.5-10.1 Serum or plasma total bilirubin measurement (mass/volume) 1.5 mg/dL 0.1-1.0 Serum or plasma alkaline phosphatase measurement (enzymatic activity/volume) 87 U/L 40-136 Serum or plasma aspartate aminotransferase measurement (enzymatic activity/ volume) 35 U/L 5-34 Serum or plasma alanine aminotransferase measurement (enzymatic activity/volume ) 38 U/L 0-55 Serum or plasma protein measurement (mass/volume) 7.5 g/dL 6.4-8.2 Serum or plasma albumin measurement (mass/volume) 4.1 g/dL 3.2-4.5 Magnesium - 07/05/17 11:25 Magnesium 1.1 mg/dL 1.8-2.4 Serum or plasma troponin i.cardiac measurement (mass/volume) - 07/05/17 11:25 Serum or plasma troponin i.cardiac measurement (mass/volume) < ng/ mL <0.30 Myoglobin, serum - 07/05/17 11:25 Myoglobin, serum 58.6 ng/mL 10.0-92.0 Serum or plasma troponin i.cardiac measurement (mass/volume) - 07/05/17 14:55 Serum or plasma troponin i.cardiac measurement (mass/volume) < ng/ mL <0.30 Encounters ACCT No. Visit Date/Time Discharge Status Pt. Type Provider Facility Loc./Unit Complaint [id number] 05/23/2017 12:00:00 05/24/2017 11:05:00 DIS Inpatient LETY AN, HOLGER Cervantes [facility] ICU CHEST PAIN/ACS [id number] 04/10/2017 06:48:00 04/11/2017 10:40:00 DIS Outpatient RALPH AMAYA MD, FACC, FACP CCDS [facility] CATH CAD,CAROTID ARTERIAL DISEASE [id number] 03/13/2017 07:59:00 03/13/2017 13:50:00 DIS Outpatient RALPH AMAYA MD, FACC, FACP CCDS [facility] CATH SOB,CAD [id number] 12/22/2016 12:49:00 12/23/2016 12:35:00 DIS Inpatient KHANG DENNY MD [facility] ICU CHEST PAIN [id number] 02/25/2016 09:32:00 02/25/2016 23:59:59 CLS Outpatient KHANG DENNY MD [facility] RAD CHRONIC SMOKER/COUGH [id number] 02/09/2015 14:22:00 02/10/2015 11:45:00 DIS Inpatient RALPH AMAYA MD, FACC, FACP CCDS [facility] CSD CHEST PAIN HYPERTENSIVE URGENCY [id number] 07/05/2017 11:38:00 Document Registration [id number] 02/09/2015 14:22:00 Document Registration [id number] 01/03/2011 12:44:00 Document Registration
== END 2017-07-05 16:25 | disposition home or self-care (01) ==
LOC: EDUNIT# 11:10 → ER 11:13
DX: R07.2 Precordial pain (principal); E83.42 Hypomagnesemia; J44.9 Chronic obstructive pulmonary disease, unspecified; I25.10 Atherosclerotic heart disease of native coronary artery without angina pectoris; I25.2 Old myocardial infarction; E78.00 Pure hypercholesterolemia, unspecified; I10 Essential (primary) hypertension; K21.9 Gastro-esophageal reflux disease without esophagitis; E11.9 Type 2 diabetes mellitus without complications; Z82.49 Family history of ischemic heart disease and other diseases of the circulatory system; Z79.82 Long term (current) use of aspirin; Z79.84 Long term (current) use of oral hypoglycemic drugs; Z77.22 Contact with and (suspected) exposure to environmental tobacco smoke (acute) (chronic); Z95.1 Presence of aortocoronary bypass graft
CPT/HCPCS: 36415; 71045; 80053; 83735; 83874; 84484; 85025; 85610; 85730; 93005; 93041; 96374

== ENCOUNTER 2017-08-28 06:33 | Day surgery (SDC) | payer MEDICARE ==
[2017-08-28] VITALS (14 sets, daily range): BP systolic 138–173; BP diastolic 72–115
[~2017-08-28] VITALS: Ht 175.3 cm; Wt 90.5 kg
--- OUTSIDE RECORDS SUMMARY | 2017-08-28 06:38 | XMS REPORT | Continuity of Care Document ---
Author Author [facility] Organization [facility] Address Unknown Phone Unavailable Allergies Active Description Code Type Severity Reaction Onset Reported/Identified Relationship to Patient Clinical Status Yes nitroglycerin [id number] Drug Allergy Unknown N/A 02/09/2015 Yes Penicillins [id number] Drug Allergy Unknown N/A 02/09/2015 Medications There [...] BYPASS 02/25/2016 Ot 414.01 CORONARY ATHEROSCLEROSIS OF [place] CORON 02/25/2016 Ot 433.10 CAROTID ARTERY OCCLUSION [...] MD Ot I25.10 ATHSCL HEART DISEASE OF [place] CORONARY 12/23/2016 KHANG DENNY MD Ot I25.2 [...] LIFESTYLE 12/23/2016 KHANG DENNY MD Ot Z79.84 SKILLED NURSING (CURRENT) USE OF ORAL HYPOGLYC 12/23/2016 KHANG [...] CCDS Ot I25.10 ATHSCL HEART DISEASE OF [place] CORONARY 03/13/2017 MONIQUE AN FACC, ALI FACP [...] AN FACC, ALI FACP CCDS Ot Z79.84 NATURAL RESOURCES MANAGER (CURRENT) USE OF ORAL HYPOGLYC 03/13/2017 MONIQUE AN FACC, ALI FACP CCDS Ot Z79.899 OTHER SKILLED NURSING (CURRENT) DRUG THERAPY 03/13/2017 MONIQUE AN FACC, [...] CCDS Ot I25.10 ATHSCL HEART DISEASE OF [place] CORONARY 03/21/2017 MONIQUE AN FACC, ALI FACP [...] AN FACC, ALI FACP CCDS Ot Z79.84 SKILLED NURSING (CURRENT) USE OF ORAL HYPOGLYC 03/21/2017 MONIQUE AN FACC, ALI FACP CCDS Ot Z79.899 OTHER NATURAL RESOURCES MANAGER (CURRENT) DRUG THERAPY 03/21/2017 MONIQUE AN FACC, [...] CCDS Ot I25.10 ATHSCL HEART DISEASE OF [place] CORONARY 04/11/2017 MONIQUE AN FACC, ALI FACP [...] AN FACC, ALI FACP CCDS Ot Z79.84 NATURAL RESOURCES MANAGER (CURRENT) USE OF ORAL HYPOGLYC 04/11/2017 MONIQUE AN FACC, ALI FACP CCDS Ot Z79.899 OTHER SKILLED NURSING (CURRENT) DRUG THERAPY 04/11/2017 MONIQUE AN FACC, ALI FACP CCDS Ot Z95.5 PRESENCE OF CORONARY ANGIOPLASTY IMPLANT 05/24/2017 HOLGER DAVIDSON MD Ot E11.9 TYPE 2 DIABETES MELLITUS WITHOUT COMPLIC 05/24/2017 HOLGER DAVIDSON MD Ot E78.5 HYPERLIPIDEMIA, UNSPECIFIED 05/24/2017 HOLGER DAVIDSON MD Ot E83.42 HYPOMAGNESEMIA 05/24/2017 HOLGER DAVIDSON MD, Ot E87.6 HYPOKALEMIA 05/24/2017 HOLGER DAVIDSON MD Ot F17.290 NICOTINE DEPENDENCE, OTHER TOBACCO PRODU 05/24/2017 HOLGER DAVIDSON MD, Ot I10 ESSENTIAL (PRIMARY) HYPERTENSION 05/24/2017 HOLGER DAVIDSON MD, Ot I25.110 ATHSCL HEART DISEASE OF [place] COR ART W 05/24/2017 HOLGER DAVIDSON MD, Ot I44.7 LEFT BUNDLE-BRANCH BLOCK, UNSPECIFIED 05/24/2017 HOLGER DAVIDSON MD, Ot K21.9 GASTRO-ESOPHAGEAL REFLUX DISEASE WITHOUT 05/24/2017 HOLGER DAVIDSON MD, Ot T82.857A STENOSIS OF OTHER CARDIAC PROSTH DEV/GRF 05/24/2017 HOLGER DAVIDSON MD, Ot Z95.1 PRESENCE OF AORTOCORONARY BYPASS GRAFT 05/24/2017 HOLGER DAVIDSON MD, Ot Z95.5 PRESENCE OF CORONARY ANGIOPLASTY IMPLANT 07/05/2017 ROXANNA INGRAM Ot E11.9 TYPE 2 DIABETES MELLITUS WITHOUT COMPLIC 07/05/2017 ROXANNA INGRAM Ot E78.00 PURE HYPERCHOLESTEROLEMIA, UNSPECIFIED 07/05/2017 ROXANNA INGRAM Ot E83.42 HYPOMAGNESEMIA 07/05/2017 ROXANNA INGRAMP Ot I10 ESSENTIAL (PRIMARY) HYPERTENSION 07/05/2017 ROXANNA INGRAM Ot I25.10 ATHSCL HEART DISEASE OF [place] CORONARY 07/05/2017 ROXANNA INGRAM Ot I25.2 OLD MYOCARDIAL INFARCTION 07/05/2017 ROXANNA INGRAMP Ot J44.9 CHRONIC OBSTRUCTIVE PULMONARY DISEASE, U 07/05/2017 ROXANNA INGRAM Ot K21.9 GASTRO-ESOPHAGEAL REFLUX DISEASE WITHOUT 07/05/2017 ROXANNA INGRAMP Ot R07.2 PRECORDIAL PAIN 07/05/2017 ROXANNA INGRAMP Ot Z77.22 CNTCT W AND EXPSR TO ENVIRON TOBACCO SMO 07/05/2017 ROXANNA INGRAM Ot Z79.82 SKILLED NURSING (CURRENT) USE OF ASPIRIN 07/05/2017 ROXANNA INGRAM Ot Z79.84 NATURAL RESOURCES MANAGER (CURRENT) USE OF ORAL HYPOGLYC 07/05/2017 ROXANNA INGRAM Ot Z82.49 FAMILY HX OF ISCHEM HEART DIS AND OTH DI 07/05/2017 ROXANNA INGRAMP Ot Z95.1 PRESENCE OF AORTOCORONARY BYPASS GRAFT 08/24/2017 KHANG DENNY MD Ot F17.200 NICOTINE DEPENDENCE, UNSPECIFIED, UNCOMP 08/24/2017 KHANG DENNY MD Ot R05 COUGH Procedures Code Description Performed By Performed On [id number] DILATION OF 1 COR ART WITH DRUG-ELUT INT 12/22/2016 [id number] MEASURE OF CARDIAC SAMPL PRESSURE, L H 12/22/2016 [id number] FLUOROSCOPY OF MULT COR ART USING L OSM 12/22/2016 [id number] FLUOROSCOPY OF LEFT HEART USING LOW OSMO 12/22/2016 [id number] FLUOROSCOPY OF L INT MAMM GRAFT USING L 12/22/2016 [id number] FLUOROSCOPY OF OTHER BYPASS GRAFT USING 12/22/2016 [id number] FLUOROSCOPY OF THORACIC AORTA USING LOW 12/22/2016 [id number] DILATION OF CORONARY ARTERY, ONE ARTERY, 05/23/2017 [id number] MEASURE OF CARDIAC SAMPL PRESSURE, L H 05/23/2017 F5981QG FLUOROSCOPY OF SINGLE CORONARY ARTERY US 05/23/2017 [id number] FLUOROSCOPY OF MULT COR A GRAFT USING L 05/23/2017 [id number] FLUOROSCOPY OF LEFT HEART USING LOW OSMO 05/23/2017 [id number] FLUOROSCOPY OF L INT MAMM GRAFT USING [...] Status Pt. Type Provider Facility Loc./Unit Complaint [id number] 07/05/2017 11:13:00 07/05/2017 16:25:00 DIS Emergency ROXANNA INGRAM [facility] ER CP [id number] 05/23/2017 12:00:00 05/24/2017 11:05:00 DIS Inpatient HOLGER DAVIDSON MD [facility] ICU CHEST PAIN/ACS [id number] 04/10/2017 06:48:00 04/11/2017 10:40:00 DIS Outpatient RALPH AMAYA MD, FACC, FACP CCDS [facility] CATH CAD,CAROTID ARTERIAL DISEASE [id number] 03/13/2017 07:59:00 03/13/2017 13:50:00 DIS Outpatient RALPH AMAYA MD, FACC, FACP CCDS [facility] CATH SOB,CAD [id number] 12/22/2016 12:49:00 12/23/2016 12:35:00 DIS Inpatient KHANG DENNY MD [facility] ICU CHEST PAIN [id number] 02/25/2016 09:32:00 02/25/2016 23:59:59 CLS Outpatient KHANG DENNY MD [facility] RAD CHRONIC SMOKER/COUGH [id number] 02/09/2015 14:22:00 02/10/2015 11:45:00 DIS Inpatient MONIQUE AN FACC, RALPH BOX CCDS [facility] CSD CHEST PAIN HYPERTENSIVE URGENCY [id number] 08/28/2017 06:33:00 ACT Outpatient SHANT KIRBY [facility] CATH CAD,ANGINA,SOB [id number] 02/09/2015 14:22:00 Document Registration [id number] 01/03/2011 12:44:00 Document Registration
[2017-08-28] MEDS ORDERED: HEParin (CATH LAB) 2,000 ML IV ONE (06:47)
[2017-08-28] MEDS ORDERED: LIDOCAINE 1% INJ 50 ML (XYLOCAINE) VIAL ONE (06:47)
[2017-08-28] MEDS ORDERED: NS IV 1000 ML 1,000 ML IV SCH ×2 (07:00→10:18)
[2017-08-28 07:10] LABS: HEMOGLOBIN 14.1 G/DL (13.3-17.7); MEAN PLATELET VOLUME 9.6 FL (7.4-10.4); RED BLOOD COUNT 4.12 10^6/uL (4.35-5.85); RED CELL DISTRIBUTION WIDTH 13.4 % (10.0-14.5); WHITE BLOOD COUNT 7.8 10^3/uL (4.3-11.0)
[2017-08-28 07:26] LABS: PROTHROMBIN TIME PATIENT 13.2 SEC (12.2-14.7)
[2017-08-28 07:35] LABS: ALANINE AMINOTRANSFERASE 27 U/L (0-55); ALBUMIN 4.1 GM/DL (3.2-4.5); ALKALINE PHOSPHATASE 55 U/L (40-136); BILIRUBIN,TOTAL 1.3 MG/DL (0.1-1.0); BUN/CREATININE RATIO 12; CALCIUM 9.1 MG/DL (8.5-10.1); CARBON DIOXIDE 21 MMOL/L (21-32); CHLORIDE 104 MMOL/L (98-107); CHOLESTEROL 131 MG/DL (< 200); CREATININE SERUM 1.17 MG/DL (0.60-1.30); GFR ESTIMATED > 60; GLUCOSE 117 MG/DL (70-105); HDL CHOLESTEROL 42 MG/DL (40-60); SODIUM 140 MMOL/L (135-145); TOTAL PROTEIN 7.5 GM/DL (6.4-8.2); TRIGLYCERIDES 281 MG/DL (<150); VLDL CHOLESTEROL 56 MG/DL (5-40)
[2017-08-28] MEDS ORDERED: ISOS120T6 PO (07:39)
[2017-08-28] MEDS ORDERED: diphenhydrAMINE 50 MG/ML INJ (BENADRYL) ONE (07:41)
[2017-08-28] MEDS ORDERED: fentaNYL INJECTION 100 MCG/2 ML AMP ONE (07:41)
[2017-08-28] MEDS ORDERED: MIDAZOLAM 5 MG/5 ML (VERSED) VIAL ONE (07:41)
[2017-08-28] MEDS ORDERED: HEParin 1000 UNIT/ML (10ML VIAL) FOR BOLUS ONE (09:28)
[2017-08-28] MEDS ORDERED: EPTIFIBATIDE BOLUS 20 ML IV ONE (09:29)
[2017-08-28] MEDS ORDERED: NITRO DRIP 25000 MCG/D5W 250 ML IV ONE (09:53)
[2017-08-28] MEDS ORDERED: ASPIRIN 81 MG CHEW (CHILDREN'S ASA) ONE (10:05)
[2017-08-28] MEDS ORDERED: CLOPIDOGREL 300 MG (PLAVIX) TABLET PO ONE (10:05)
--- NOTE | 2017-08-28 10:19 | Cardiac Procedure Note-CS/ASA ---
Pre-Procedure Note Pre-Op Procedure Note H&P Reviewed The H&P was reviewed, patient examined and no changes noted. Date H&P Reviewed: Aug 28, 2017 Time H&P Reviewed: 08:50 Conscious Sedation Pre-Proced Time Reviewed: 08:50 ASA Class: 3 Airway Mallampati Classification: (elem appropriate class) I. II. III, IV Lungs Heart ASA score ASA 1: a normal healthy patient ASA 2: a patient with a mild systemic disease (mid diabetes, controlled hypertension, obesity ASA 3: a patient with a severe systemic disease that limits activity (angina , COPD, prior Myocardial infarction) ASA 4: a patient with an incapacitating disease that is a constant threat to life (CHF, renal failure) ASA 5: a moribund patient not expected to survive 24 hrs. (ruptured aneurysm) ASA 6: a declared brain patient whose organs are being harvested. For emergent operations, add the letter E after the classification Grade 3 Sedation Plan: Analgesia, Amnesia, Plan communicated to team members, Discussed options with patient/fam, Discussed risks with patient/fam Note The patient is an appropriate candidate to undergo the planned procedure, sedation, and anesthesia. The patient immediately re-assessed prior to indication. RALPH AMAYA MD FACP FAC CCDS Aug 28, 2017 10:19
[2017-08-28] MEDS ORDERED: PATIENT MAY USE OWN MEDS, ALL PO SCH (10:30)
[2017-08-28] MEDS: inSUlin (REGULAR) HUMAN 1 UNIT/0.01 ML (CHARGE PER UNIT) SC SCH ×3 (11:00→20:40)
--- NOTE | 2017-08-28 13:26 | CARDIAC CATHETERIZATION ---
DATE OF SERVICE: 08/28/2017 INDICATION FOR THE PROCEDURE: The patient is a 76-year-old man with coronary artery disease and history of coronary artery bypass surgery and percutaneous coronary interventions. He has had recurrence of angina. His most recent interventions have been to the saphenous vein graft insertion to the posterior descending artery. We were suspicious that he may have had a restenosis at that site. Our plan was to proceed with graft angiography beginning with the right coronary graft. If the right coronary graft was found to have restenosis, we would proceed with intervention. If no restenosis was to be found there, we would proceed with the rest of the coronary and graft angiography. Informed consent was obtained. PROCEDURE DESCRIPTION: He was brought to the cardiac catheterization laboratory in a fasting state. Right groin was prepared and draped in usual sterile fashion. Lidocaine 1% local anesthesia. Modified [place] technique was used advanced a 6-Fijian sheath into the right femoral artery. We used a 6-Fijian JR4 catheter to carry out angiography of the saphenous vein graft to the right coronary artery. We found that there was 90% stenosis at the site of insertion of the graft into the posterior descending branch of the right coronary artery. The posterior descending branch itself had 90% stenosis, as well, at the site of insertion. PERCUTANEOUS INTERVENTION TO THE SAPHENOUS VEIN GRAFT TO THE RIGHT CORONARY ARTERY: We used 6-Fijian JR4 guide catheter. We used multiple wires to try and cross the distal lesion at the site of insertion of the graft into the posterior descending branch. We were able to cross with a choice floppy wire. The tip of the wire was placed in the distal posterior descending branch and we carried out balloon angioplasty with Emerge 2.0 x 20 mm balloon, which reduced the stenosis from 90% to approximately 80%. We tried to go retrograde into the posterior descending branch and the right coronary artery with a different wire. This attempt was unsuccessful. The idea of this attempt was to do balloon angioplasty retrogradely at the site of the graft insertion, as well. We were not able to advance the wire and the manipulation resulted in occlusion of the graft. We performed suction thrombectomy of the graft and this was followed by repeat balloon angioplasty antegrade from the graft into the distal portion of the posterior descending branch. This opened the graft back up. We then proceeded with the stenting of the lesion. We used an iContactine Xience 2.25 x 18 mm stent. We positioned it very carefully to keep it limited to the lesion. The stent was deployed at 12 atmospheres. Subsequent angiography revealed 0% residual stenosis at the site of insertion and into the antegrade portion of the posterior descending branch of the right coronary artery. The retrograde portion of the posterior descending branch of the right coronary artery does exhibit approximately 80% stenosis. This portion of the artery is now jailed by this stent that proceeds from the graft into the antegrade portion of the posterior descending branch of the right coronary artery. The patient tolerated the procedure well. He received a total of 7000 units of intravenous heparin and double bolus of Integrilin during the procedure. At the end of the procedure, he received 300 mg of oral Plavix and 324 mg of oral aspirin. Angiography of the right femoral artery was carried through the sheath and a Mynx was used to achieve hemostasis following sheath removal. CONCLUSIONS: A 90% stenosis at the site of insertion of the saphenous vein graft into the posterior descending branch treated successfully with balloon angioplasty and subsequent stenting with Alpine Xience 2.25 x 18 mm stent as described above in detail. Job ID: [id number] DocumentID: [id number] Dictated Date: 08/28/2017 10:45:21 Database Manager Date: 08/28/2017 13:25:32 Dictated By: RALPH AMAYA MD, MA, FACP, FACC, MTDD
[2017-08-28] MEDS: OMEGA 3 (FISH OIL) 1000 MG CAP PO SCH (18:12)
[2017-08-28] MEDS: Metoprolol Tartrate 100 MG TABLET PO SCH (20:32)
[2017-08-28] MEDS: ENALAPRIL 10 MG (VASOTEC) TAB PO SCH (20:33)
[2017-08-28] MEDS: OMEPRAZOLE 20 MG (PriLOSEC) CAP NON-FORMULARY PO SCH (20:33)
[2017-08-28] MEDS ORDERED: ATORVASTATIN 40 MG (LIPITOR) TABLET PO SCH (21:00)
[2017-08-29 03:58] LABS: HEMOGLOBIN 12.7 G/DL (13.3-17.7); MEAN PLATELET VOLUME 9.8 FL (7.4-10.4); RED BLOOD COUNT 3.71 10^6/uL (4.35-5.85); RED CELL DISTRIBUTION WIDTH 13.2 % (10.0-14.5); WHITE BLOOD COUNT 9.2 10^3/uL (4.3-11.0)
[2017-08-29 04:16] LABS: BUN/CREATININE RATIO 13; CALCIUM 8.5 MG/DL (8.5-10.1); CARBON DIOXIDE 25 MMOL/L (21-32); CHLORIDE 105 MMOL/L (98-107); CREATININE SERUM 0.98 MG/DL (0.60-1.30); GFR ESTIMATED > 60; GLUCOSE 112 MG/DL (70-105); POTASSIUM 3.8 MMOL/L (3.6-5.0); SODIUM 140 MMOL/L (135-145)
[2017-08-29 04:20] VITALS: BP 138/72
[2017-08-29] MEDS: inSUlin (REGULAR) HUMAN 1 UNIT/0.01 ML (CHARGE PER UNIT) SC SCH (04:21)
[2017-08-29] MEDS ORDERED: SENTRY SENIOR PO SCH (07:00)
[2017-08-29] MEDS ORDERED: ISOSORBIDE MONONITRATE 60 MG (IMDUR) TAB PO SCH (07:00)
--- NOTE | 2017-08-29 07:53 | Progress Note-Cardiology ---
Cardiology SO Progress Note Objective: I&O/Vital Signs Weight (Pounds): 199 Weight (Ounces): 8.0 Weight (Calculated Kilograms): 90.778667 Results/Procedures: Labs Microbiology 08/28/17 MRSA Screen - Final, Complete MRSA not isolated Procedures S/P cardiac cath with successful intervention on 08-28-17. Please refer to cardiac cath report for details. A/P: Assessment: Most recent cardiac cath of 08-28-17: A 90% stenosis at the site of insertion of the saphenous vein graft into the posterior descending branch treated successfully with balloon angioplasty and subsequent stenting with Alacritechine Xience 2.25 x 18 mm stent. Coronary artery disease with a history of coronary artery bypass surgery consisting of left internal mammary artery graft to left anterior descending artery, saphenous vein graft to right coronary artery, saphenous vein graft to diagonal artery, saphenous vein graft to first obtuse marginal artery, saphenous vein graft to second obtuse marginal artery in 1999. Senting of prox LCX in November 2016 after he had presented with ac NSTEMI CAD: H/O PCI on 04/10/17: Successful balloon angioplasty of the site of insertion of the saphenous vein graft to the posterior descending branch with reduction of stenosis from 99% to approximately 70% and improvement of flow from PETEY-1 to PETEY-3 (normal flow) Most recent Cardiac cath of May 23, 2017: Coronary artery disease primarily consisting of mid vessel occlusions of the left anterior descending artery, ostial occlusion of an obtuse marginal system of the left circumflex artery, ostial and proximal occlusion of the right coronary artery. Two out of four saphenous vein grafts are occluded. One saphenous vein graft to obtuse marginal was widely patent. Another saphenous vein graft to posterior descending branch of the right coronary artery had 90% stenosis at its insertion to which successful balloon angioplasty was carried out which reduced the 90% stenosis to approximately 50% residual. The proximal portion of the left circumflex artery has a widely patent stent that this is known to be a Resolute 2.5 x 22 mm stent that was placed in 11/2016. Hypertension, controlled. Hyperlipidemia being treated with statin therapy Diabetes mellitus, type II. Gastroesophageal reflux. Tobaccoism consisting smoking cigars. He has again been asked to refrain from using tobacco. Carotid arterial disease, mild, per ultrasonography of June 2017 Minimal ALT elevation, stable on serial evals; f/u advised with SHANT Mohamud Aug 29, 2017 07:53
[2017-08-29] MEDS: OMEGA 3 (FISH OIL) 1000 MG CAP PO SCH (08:42)
[2017-08-29] MEDS: Metoprolol Tartrate 100 MG TABLET PO SCH (08:44)
[2017-08-29] MEDS: OMEPRAZOLE 20 MG (PriLOSEC) CAP NON-FORMULARY PO SCH (08:45)
[2017-08-29] MEDS: ENALAPRIL 10 MG (VASOTEC) TAB PO SCH (08:47)
[2017-08-29 08:48] VITALS: BP 170/82
[2017-08-29] MEDS ORDERED: amLODIPine 5 MG (NORVASC) TAB PO SCH (09:00)
[2017-08-29] MEDS ORDERED: ASPIRIN 81 MG CHEW (CHILDREN'S ASA) PO SCH (09:00)
[2017-08-29] MEDS ORDERED: CLOPIDOGREL 75 MG (PLAVIX) TABLET PO SCH (09:00)
--- NOTE | 2017-08-29 09:18 | Discharge Inst-Cardiology ---
Discharge Inst-Cardiac Discharge Medications Continued Medications: Amlodipine Besylate (Amlodipine Besylate) 5 Mg Tablet 5 MG PO DAILY, TAB Aspirin (Aspir 81) 81 Mg Tablet.dr 81 MG PO HS, TAB Atorvastatin Calcium (Lipitor) 40 Mg Tablet 40 MG PO HS, #30 TAB 5 Refills Clopidogrel Bisulfate (Plavix) 75 Mg Tablet 75 MG PO DAILY, TAB Enalapril Maleate (Enalapril Maleate) 10 Mg Tablet 10 MG PO BID, TAB Fish Oil/Dha/Epa (Fish Oil 1,200 mg Fish Oil) 1 Each Capsule 1200 MG PO BID, CAP Isosorbide Mononitrate (Isosorbide Mononitrate ER) 120 Mg Tab.er.24h 120 MG PO DAILY, TAB Metformin HCl (Metformin HCl) 500 Mg Tablet 500 MG PO BID, TAB Metoprolol Tartrate (Metoprolol Tartrate) 100 Mg Tablet 100 MG PO BID, TAB Multivits,Ca,Min/Iron/FA/Lycop (Centrum Men's Tablet) 1 Each Tablet 1 TAB PO DAILY, TAB Omeprazole (Omeprazole) 20 Mg Capsule. 20 MG PO BID, CAP Patient Instructions Patient Instructions: HOLD METFORMIN TODAY AND TOMORROW. RE-START ON THURSDAY, AUGUST 31, 2017 F/U APPT NEXT SUNDAY TO SEE SHANT GRAY Aug 29, 2017 09:18
[2017-08-29 10:04] VITALS: BP 134/79
--- NOTE | 2017-08-29 11:38 | Progress Note-Cardiology ---
Cardiology SOAP Progress Note Subjective: No cp or palp or syncope or shortness of breath or groin discomfort. Wishes to go home Objective: I&O/Vital Signs Vital Sign - Last 12Hours 08/28/17 08/29/17 08/29/17 08/29/17 23:35 01:00 04:20 07:00 Temp 97.2 98.4 Pulse 71 74 75 77 Resp 20 16 B/P (MAP) 148/87 (107) 138/72 (94) Pulse Ox 94 96 O2 Delivery Room Air Room Air 08/29/17 08/29/17 08/29/17 08/29/17 08:48 08:58 10:04 10:15 Temp 98.8 Pulse 82 67 Resp 16 B/P (MAP) 170/82 (111) 134/79 (97) Pulse Ox 95 95 O2 Delivery Room Air Room Air Intake and Output 08/28/17 23:59 Intake Total 240 ml Balance 240 ml Weight (Pounds): 199 Weight (Ounces): 8.0 Weight (Calculated Kilograms): 90.965059 Constitutional: AAO x 3, well-developed, well-nourished Respiratory: No accessory muscle use, lungs clear to percussion, lungs clear to auscultation Cardiovascular: regular rate-rhythm, S1 and S2, systolic murmur (Soft OZZIE at card base) Gastrointestional: No tender, soft, No guarding, No rebound, audible bowel sounds Extremities: No clubbing, No cyanosis, No significant edema Neurologic/Psychiatric: oriented x 3, grossly intact, power is 5/5 both on sides Skin: No rash on exposed areas, No ulcerations on exposed areas Results/Procedures: Labs Laboratory Tests 08/28/17 17:14: Glucometer 215H 08/28/17 20:37: Glucometer 205H 08/29/17 03:30: White Blood Count 9.2, Red Blood Count 3.71L, Hemoglobin 12.7L, Hematocrit 36L, Mean Corpuscular Volume 96, Mean Corpuscular Hemoglobin 34, Mean Corpuscular Hemoglobin Concent 36, Red Cell Distribution Width 13.2, Platelet Count 192, Mean Platelet Volume 9.8, Sodium Level 140, Potassium Level 3.8, Chloride Level 105, Carbon Dioxide Level 25, Anion Gap 10, Blood Urea Nitrogen 13, Creatinine 0.98, Estimat Glomerular Filtration Rate > 60, BUN/Creatinine Ratio 13, Glucose Level 112H, Calcium Level 8.5 Laboratory Tests 08/28/17 07:04 08/29/17 03:30 A/P: Assessment: Coronary artery disease with a history of coronary artery bypass surgery consisting of left internal mammary artery graft to left anterior descending artery, saphenous vein graft to right coronary artery, saphenous vein graft to diagonal artery, saphenous vein graft to first obtuse marginal artery, saphenous vein graft to second obtuse marginal artery in 1999. Senting of prox LCX in November 2016 after he had presented with ac NSTEMI CAD: Cardiac cath of May 23, 2017: Coronary artery disease primarily consisting of mid vessel occlusions of the left anterior descending artery, ostial occlusion of an obtuse marginal system of the left circumflex artery, ostial and proximal occlusion of the right coronary artery. Two out of four saphenous vein grafts are occluded. One saphenous vein graft to obtuse marginal was widely patent. Another saphenous vein graft to posterior descending branch of the right coronary artery had 90% stenosis at its insertion to which successful balloon angioplasty was carried out which reduced the 90% stenosis to approximately 50% residual. The proximal portion of the left circumflex artery has a widely patent stent that this is known to be a Resolute 2.5 x 22 mm stent that was placed in 11/2016. Most recent cardiac cath of 08-28-17: A 90% stenosis at the site of insertion of the saphenous vein graft into the posterior descending branch treated successfully with balloon angioplasty and subsequent stenting with Alpine Xience 2.25 x 18 mm stent. Hypertension, controlled. Hyperlipidemia being treated with statin therapy Diabetes mellitus, type II. Gastroesophageal reflux. Tobaccoism consisting smoking cigars. He has again been asked to refrain from using tobacco. Carotid arterial disease, mild, per ultrasonography of June 2017 Minimal ALT elevation, stable on serial evals; f/u advised with Dr Prado Plan: We discussed cath findings and interventions undertaken We advised and discussed risk factor mod We advised med compliance We answered questions Close outpatient f/u is advised for now RALPH AMAYA MD FACP [facility] Aug 29, 2017 11:38
== END 2017-08-29 10:15 | disposition home or self-care (01) ==
LOC: CATH 06:33 → SURG 10:33 → ICU 14:19 → CATH 08-29 10:15
PROVIDERS: ATTEND Nurse Practitioner Family
DX: T82.857A Stenosis of other cardiac prosthetic devices, implants and grafts, initial encounter (principal); I25.110 Atherosclerotic heart disease of native coronary artery with unstable angina pectoris; I10 Essential (primary) hypertension; E78.5 Hyperlipidemia, unspecified; E11.9 Type 2 diabetes mellitus without complications; K21.9 Gastro-esophageal reflux disease without esophagitis; F17.290 Nicotine dependence, other tobacco product, uncomplicated; R74.0 Nonspecific elevation of levels of transaminase and lactic acid dehydrogenase [LDH]; Z95.1 Presence of aortocoronary bypass graft; Z95.5 Presence of coronary angioplasty implant and graft; Z79.82 Long term (current) use of aspirin; Z79.84 Long term (current) use of oral hypoglycemic drugs; Z79.899 Other long term (current) drug therapy
CPT/HCPCS: 36415; 80048; 80053; 80061; 82962; 85027; 85610; 85730; 87081; 93005

== ENCOUNTER 2017-12-24 09:45 | Outpatient (RCR) | payer MEDICARE ==
[~2017-12-24 09:45] MED LIST changes: +ISOS120T6 PO; -METF500T4 PO; +METF500T5 PO
== END 2017-12-30 | disposition home or self-care (01) ==
LOC: CR 09:45
PROVIDERS: ATTEND Internal Medicine Cardiovascular Disease
DX: Z48.812 Encounter for surgical aftercare following surgery on the circulatory system (principal); Z95.5 Presence of coronary angioplasty implant and graft
CPT/HCPCS: 93798

== ENCOUNTER 2018-01-02 09:40 | Emergency (ER) | payer MEDICARE ==
[~2018-01-02] VITALS: Ht 175.3 cm; Wt 85.3 kg
--- OUTSIDE RECORDS SUMMARY | 2018-01-02 09:46 | XMS REPORT | Continuity of Care Document ---
Author Author [facility] Organization [facility] Address Unknown Phone Unavailable Allergies Active Description Code Type Severity Reaction Onset Reported/Identified Relationship to Patient Clinical Status Yes nitroglycerin [id number] Drug Allergy Unknown N/A 02/09/2015 Yes Penicillins [id number] Drug Allergy Unknown N/A 02/09/2015 Medications There is no data. Problems Date Dx Coded Attending Type Code Diagnosis Diagnosed By 02/09/2015 Ot 414.01 02/09/2015 Ot 433.10 02/09/2015 Ot 414.01 02/09/2015 Ot 433.10 02/10/2015 MONIQUE AN FACC, RALPH FACP CCDS Ot 250.00 DIAB DENNIS WO COMPL, TYPE II OR UNSPEC TY 02/10/2015 MONIQUE AN FACC, RALPH FACP CCDS Ot 272.4 [...] BYPASS 02/25/2016 Ot 414.01 CORONARY ATHEROSCLEROSIS OF [place] CORON 02/25/2016 Ot 433.10 CAROTID ARTERY OCCLUSION [...] MD Ot I25.10 ATHSCL HEART DISEASE OF [place] CORONARY 12/23/2016 KHANG DENNY MD Ot I25.2 [...] CCDS Ot I10 ESSENTIAL (PRIMARY) HYPERTENSION 03/13/2017 OMNIQUE AN FACC, ALI FACP CCDS Ot I25.10 ATHSCL HEART DISEASE OF [place] CORONARY 03/13/2017 MONIQUE AN FACC, ALI FACP [...] AN FACC, ALI FACP CCDS Ot Z79.84 GENERAL INTERNAL MEDICINE PHYSICIAN (CURRENT) USE OF ORAL HYPOGLYC 03/13/2017 MONIQUE [...] CCDS Ot I25.10 ATHSCL HEART DISEASE OF [place] CORONARY 03/21/2017 MONIQUE AN FACC, ALI FACP [...] FACC, ALI FACP CCDS Ot Z79.899 OTHER GENERAL INTERNAL MEDICINE PHYSICIAN (CURRENT) DRUG THERAPY 03/21/2017 MONIQUE AN FACC, [...] CCDS Ot I25.10 ATHSCL HEART DISEASE OF [place] CORONARY 04/11/2017 MONIQUE AN FACC, ALI FACP [...] AN FACC, ALI FACP CCDS Ot Z79.84 GENERAL INTERNAL MEDICINE PHYSICIAN (CURRENT) USE OF ORAL HYPOGLYC 04/11/2017 MONIQUE [...] NICOTINE DEPENDENCE, OTHER TOBACCO PRODU 05/24/2017 HOLGER DAVDISON MD, Ot I10 ESSENTIAL (PRIMARY) HYPERTENSION 05/24/2017 HOLGER DAVIDSON MD, Ot I25.110 ATHSCL HEART DISEASE OF [place] COR ART W 05/24/2017 HOLGER DAVIDSON MD, [...] INGRAM Ot I25.10 ATHSCL HEART DISEASE OF [place] CORONARY 07/05/2017 ROXANNA INGRAM Ot I25.2 OLD MYOCARDIAL INFARCTION 07/05/2017 ROXANNA INGRAMP Ot J44.9 CHRONIC OBSTRUCTIVE PULMONARY DISEASE, U 07/05/2017 ROXANNA INGRAM Ot K21.9 GASTRO-ESOPHAGEAL REFLUX DISEASE WITHOUT 07/05/2017 ROXANNA INGRAMP Ot R07.2 PRECORDIAL PAIN 07/05/2017 ROXANNA INGRAMP Ot Z77.22 CNTCT W AND EXPSR TO ENVIRON TOBACCO SMO 07/05/2017 ROXANNA INGRAM Ot Z79.82 SENIOR CARE (CURRENT) USE OF ASPIRIN 07/05/2017 ROXANNA INGRAM Ot Z79.84 GENERAL INTERNAL MEDICINE PHYSICIAN (CURRENT) USE OF ORAL HYPOGLYC 07/05/2017 ROXANNA INGRAM Ot Z82.49 FAMILY HX OF ISCHEM HEART DIS AND OTH DI 07/05/2017 JUAN JOSE, ROXANNA TRANSITION SPECIALIST Ot Z95.1 PRESENCE OF AORTOCORONARY BYPASS GRAFT 08/24/2017 KHANG DENNY MD Ot F17.200 NICOTINE DEPENDENCE, UNSPECIFIED, UNCOMP 08/24/2017 KHANG DENNY MD Ot R05 COUGH 08/29/2017 KOFI SHANT L TRANSITION SPECIALIST Ot E11.9 TYPE 2 DIABETES MELLITUS WITHOUT COMPLIC 08/29/2017 SHANT KIRBY TRANSITION SPECIALIST Ot E78.5 HYPERLIPIDEMIA, UNSPECIFIED 08/29/2017 BAIMA SHANT L TRANSITION SPECIALIST Ot F17.290 NICOTINE DEPENDENCE, OTHER TOBACCO PRODU 08/29/2017 BAIMA SHANT L TRANSITION SPECIALIST Ot I10 ESSENTIAL (PRIMARY) HYPERTENSION 08/29/2017 BHARATIMA SHANT L TRANSITION SPECIALIST Ot I25.110 ATHSCL HEART DISEASE OF [place] COR ART W 08/29/2017 KOFI SHANT L TRANSITION SPECIALIST Ot K21.9 GASTRO-ESOPHAGEAL REFLUX DISEASE WITHOUT 08/29/2017 KOFI SHANT L TRANSITION SPECIALIST Ot R74.0 NONSPEC ELEV OF LEVELS OF TRANSAMNS [place] 08/29/2017 SHANT KIRBY L TRANSITION SPECIALIST Ot T82.857A STENOSIS OF OTHER CARDIAC PROSTH DEV/GRF 08/29/2017 KOFI SHANT L TRANSITION SPECIALIST Ot Z79.82 SENIOR CARE (CURRENT) USE OF ASPIRIN 08/29/2017 SHANT KIRBY L TRANSITION SPECIALIST Ot Z79.84 SENIOR CARE (CURRENT) USE OF ORAL HYPOGLYC 08/29/2017 SHANT KIRBY L TRANSITION SPECIALIST Ot Z79.899 OTHER GENERAL INTERNAL MEDICINE PHYSICIAN (CURRENT) DRUG THERAPY 08/29/2017 SHANT KIRBY L TRANSITION SPECIALIST Ot Z95.1 PRESENCE OF AORTOCORONARY BYPASS GRAFT 08/29/2017 SHANT KIRBY L TRANSITION SPECIALIST Ot Z95.5 PRESENCE OF CORONARY ANGIOPLASTY IMPLANT 08/29/2017 SHANT KIRBY L TRANSITION SPECIALIST Ot E11.9 TYPE 2 DIABETES MELLITUS WITHOUT COMPLIC 08/29/2017 SHANT KIRBY L TRANSITION SPECIALIST Ot E78.5 HYPERLIPIDEMIA, UNSPECIFIED 08/29/2017 BHARATIMA SHANT L TRANSITION SPECIALIST Ot F17.290 NICOTINE DEPENDENCE, OTHER TOBACCO PRODU 08/29/2017 BHARATIMA SHANT L TRANSITION SPECIALIST Ot I10 ESSENTIAL (PRIMARY) HYPERTENSION 08/29/2017 BHARATIMA SHANT L TRANSITION SPECIALIST Ot I25.110 ATHSCL HEART DISEASE OF [place] COR ART W 08/29/2017 BHARATIELAN SHANT L TRANSITION SPECIALIST Ot K21.9 GASTRO-ESOPHAGEAL REFLUX DISEASE WITHOUT 08/29/2017 SHANT KIRBY L TRANSITION SPECIALIST Ot R74.0 NONSPEC ELEV OF LEVELS OF TRANSAMNS [place] 08/29/2017 KOFI SHANT L TRANSITION SPECIALIST Ot T82.857A STENOSIS OF OTHER CARDIAC PROSTH DEV/GRF 08/29/2017 SHANT KIRBY L TRANSITION SPECIALIST Ot Z79.82 GENERAL INTERNAL MEDICINE PHYSICIAN (CURRENT) USE OF ASPIRIN 08/29/2017 SHANT KIRBY L TRANSITION SPECIALIST Ot Z79.84 GENERAL INTERNAL MEDICINE PHYSICIAN (CURRENT) USE OF ORAL HYPOGLYC 08/29/2017 KOFI SHANT L TRANSITION SPECIALIST Ot Z79.899 OTHER SENIOR CARE (CURRENT) DRUG THERAPY 08/29/2017 SHANT KIRBY L TRANSITION SPECIALIST Ot Z95.1 PRESENCE OF AORTOCORONARY BYPASS GRAFT 08/29/2017 SHANT KIRBY L TRANSITION SPECIALIST Ot Z95.5 PRESENCE OF CORONARY ANGIOPLASTY IMPLANT 09/03/2017 SHANT KIRBY L TRANSITION SPECIALIST Ot E11.9 TYPE 2 DIABETES MELLITUS WITHOUT COMPLIC 09/03/2017 SHANT KIRBY L TRANSITION SPECIALIST Ot E78.5 HYPERLIPIDEMIA, UNSPECIFIED 09/03/2017 SHANT KIRBY L TRANSITION SPECIALIST Ot F17.290 NICOTINE DEPENDENCE, OTHER TOBACCO PRODU 09/03/2017 SHANT KIRBY L TRANSITION SPECIALIST Ot I10 ESSENTIAL (PRIMARY) HYPERTENSION 09/03/2017 SHANT KIRBY TRANSITION SPECIALIST Ot I25.110 ATHSCL HEART DISEASE OF [place] COR ART W 09/03/2017 SHANT KIRBY TRANSITION SPECIALIST Ot K21.9 GASTRO-ESOPHAGEAL REFLUX DISEASE WITHOUT 09/03/2017 SHANT KIRBY L TRANSITION SPECIALIST Ot R74.0 NONSPEC ELEV OF LEVELS OF TRANSAMNS [place] 09/03/2017 SHANT KIRBY L TRANSITION SPECIALIST Ot T82.857A STENOSIS OF OTHER CARDIAC PROSTH DEV/GRF 09/03/2017 SHANT KIRBY L TRANSITION SPECIALIST Ot Z79.82 GENERAL INTERNAL MEDICINE PHYSICIAN (CURRENT) USE OF ASPIRIN 09/03/2017 SHANT KIRBY L TRANSITION SPECIALIST Ot Z79.84 SENIOR CARE (CURRENT) USE OF ORAL HYPOGLYC 09/03/2017 SHANT KIRBY L TRANSITION SPECIALIST Ot Z79.899 OTHER SENIOR CARE (CURRENT) DRUG THERAPY 09/03/2017 BAISHANT ANSARI Star TRANSITION SPECIALIST Ot Z95.1 PRESENCE OF AORTOCORONARY BYPASS GRAFT 09/03/2017 BHARATIELAN SHANT L TRANSITION SPECIALIST Ot Z95.5 PRESENCE OF CORONARY ANGIOPLASTY IMPLANT 11/13/2017 MONIQUE AN FACC, ALI FACP CCDS Ot Z48.812 ENCNTR FOR SURGICAL AFTCR FOLLOWING SURG 11/13/2017 MONIQUE AN FACC, ALI FACP CCDS Ot Z95.5 PRESENCE OF CORONARY ANGIOPLASTY IMPLANT 11/21/2017 MONIQUE AN FACBilly, ALI FACP CCDS Ot Z48.812 ENCNTR FOR SURGICAL AFTCR FOLLOWING SURG 11/21/2017 MONIQUE AN FACC, ALI FACP CCDS Ot Z95.5 PRESENCE OF CORONARY ANGIOPLASTY IMPLANT 2017 MONIQUE AN FACBilly, ALI FACP CCDS Ot Z48.812 ENCNTR FOR SURGICAL AFTCR FOLLOWING SURG 2017 MONIQUE AN FACC, ALI FACP CCDS Ot Z95.5 PRESENCE OF CORONARY ANGIOPLASTY IMPLANT 01/01/2018 MONIQUE AN FACC, ALI FACP CCDS Ot Z48.812 ENCNTR FOR SURGICAL AFTCR FOLLOWING SURG 01/01/2018 MONIQUE AN FACC, ALI FACP CCDS Ot Z95.5 PRESENCE OF CORONARY ANGIOPLASTY IMPLANT Procedures Code Description Performed By Performed On 054816F DILATION OF 1 COR ART WITH DRUG-ELUT INT 12/22/2016 [id number] MEASURE OF CARDIAC SAMPL PRESSURE, L H 12/22/2016 [id number] FLUOROSCOPY OF MULT COR ART USING L OSM 12/22/2016 [id number] FLUOROSCOPY OF LEFT HEART USING LOW OSMO 12/22/2016 [id number] FLUOROSCOPY OF L INT MAMM GRAFT USING L 12/22/2016 [id number] FLUOROSCOPY OF OTHER BYPASS GRAFT USING 12/22/2016 [id number] FLUOROSCOPY OF THORACIC AORTA USING LOW 12/22/2016 [id number] DILATION OF CORONARY ARTERY, ONE ARTERY, 05/23/2017 [id number] MEASURE OF CARDIAC SAMPL PRESSURE, L H 05/23/2017 [id number] FLUOROSCOPY OF SINGLE CORONARY ARTERY US 05/23/2017 [id number] FLUOROSCOPY OF MULT COR A GRAFT USING L 05/23/2017 [id number] FLUOROSCOPY OF LEFT HEART USING LOW OSMO 05/23/2017 [id number] FLUOROSCOPY OF L INT MAMM GRAFT USING [...] resistant Staphylococcus aureus (MRSA) screening culture NEG [facility] Automated blood complete blood count (hemogram) panel [...] i.cardiac measurement (mass/volume) < ng/ mL <0.30 Automated blood complete blood count (hemogram) panel - 08/28/17 07:04 Blood leukocytes automated count (number/volume) 7.8 10*3/uL 4.3-11.0 Blood erythrocytes automated count (number/volume) 4.12 10*6/uL 4.35-5.85 Venous blood hemoglobin measurement (mass/volume) 14.1 g/dL 13.3-17.7 Blood hematocrit (volume fraction) 40 % 40-54 Automated erythrocyte mean corpuscular volume 96 [foz_us] 80-99 Automated erythrocyte mean corpuscular hemoglobin (mass per erythrocyte) 34 pg 25-34 Automated erythrocyte mean corpuscular hemoglobin concentration measurement ( mass/volume) 36 g/dL 32-36 Automated erythrocyte distribution width ratio 13.4 % 10.0-14.5 Automated blood platelet count (count/volume) 222 10*3/uL 130-400 Automated blood platelet mean volume measurement 9.6 [foz_us] 7.4-10.4 PT panel in platelet poor plasma by coagulation assay - 08/28/17 07:04 Prothrombin time (PT) in platelet poor plasma by coagulation assay 13.2 s 12.2-14.7 INR in platelet poor plasma or blood by coagulation assay 1.0 0.8-1.4 Activated partial thromboplastin time (aPTT) in platelet poor plasma bycoagulation assay - 08/28/17 07:04 Activated partial thromboplastin time (aPTT) in platelet poor plasma bycoagulation assay 30 s 24-35 Comprehensive metabolic panel - 08/28/17 07:04 Serum or plasma sodium measurement (moles/volume) 140 mmol/L 135-145 Serum or plasma potassium measurement (moles/volume) 4.0 mmol/L 3.6-5.0 Serum or plasma chloride measurement (moles/volume) 104 mmol/L 98-107 Carbon dioxide 21 mmol/L 21-32 Serum or plasma anion gap determination (moles/volume) 15 mmol/L 5-14 Serum or plasma urea nitrogen measurement (mass/volume) 14 mg/dL 7-18 Serum or plasma creatinine measurement (mass/volume) 1.17 mg/dL 0.60-1.30 Serum or plasma urea nitrogen/creatinine mass ratio 12 NRG Serum or plasma creatinine measurement with calculation of estimated glomerular filtration rate > NRG Serum or plasma glucose measurement (mass/volume) 117 mg/dL 70-105 Serum or plasma calcium measurement (mass/volume) 9.1 mg/dL 8.5-10.1 Serum or plasma total bilirubin measurement (mass/volume) 1.3 mg/dL 0.1-1.0 Serum or plasma alkaline phosphatase measurement (enzymatic activity/volume) 55 U/L 40-136 Serum or plasma aspartate aminotransferase measurement (enzymatic activity/ volume) 43 U/L 5-34 Serum or plasma alanine aminotransferase measurement (enzymatic activity/volume ) 27 U/L 0-55 Serum or plasma protein measurement (mass/volume) 7.5 g/dL 6.4-8.2 Serum or plasma albumin measurement (mass/volume) 4.1 g/dL 3.2-4.5 Lipid 1996 panel - 08/28/17 07:04 Serum or plasma triglyceride measurement (mass/volume) 281 mg/dL <150 Serum or plasma cholesterol measurement (mass/volume) 131 mg/dL < 200 Serum or plasma cholesterol in HDL measurement (mass/volume) 42 mg/ dL 40-60 Cholesterol in LDL [mass/volume] in serum or plasma by direct assay 53 mg/dL 1-129 Serum or plasma cholesterol in VLDL measurement (mass/volume) 56 mg/ dL 5-40 Methicillin resistant Staphylococcus aureus (MRSA) screening culture - 07:04 Methicillin resistant Staphylococcus aureus (MRSA) screening culture NEG NRG Capillary blood glucose measurement by glucometer (mass/volume) - 08/28/17 17: 14 Capillary blood glucose measurement by glucometer (mass/volume) 215 mg/dL 70-110 Capillary blood glucose measurement by glucometer (mass/volume) - 08/28/17 20: 37 Capillary blood glucose measurement by glucometer (mass/volume) 205 mg/dL 70-110 Automated blood complete blood count (hemogram) panel - 08/29/17 03:30 Blood leukocytes automated count (number/volume) 9.2 10*3/uL 4.3-11.0 Blood erythrocytes automated count (number/volume) 3.71 10*6/uL 4.35-5.85 Venous blood hemoglobin measurement (mass/volume) 12.7 g/dL 13.3-17.7 Blood hematocrit (volume fraction) 36 % 40-54 Automated erythrocyte mean corpuscular volume 96 [foz_us] 80-99 Automated erythrocyte mean corpuscular hemoglobin (mass per erythrocyte) 34 pg 25-34 Automated erythrocyte mean corpuscular hemoglobin concentration measurement ( mass/volume) 36 g/dL 32-36 Automated erythrocyte distribution width ratio 13.2 % 10.0-14.5 Automated blood platelet count (count/volume) 192 10*3/uL 130-400 Automated blood platelet mean volume measurement 9.8 [foz_us] 7.4-10.4 Whole blood basic metabolic panel - 08/29/17 03:30 Serum or plasma sodium measurement (moles/volume) 140 mmol/L 135-145 Serum or plasma potassium measurement (moles/volume) 3.8 mmol/L 3.6-5.0 Serum or plasma chloride measurement (moles/volume) 105 mmol/L 98-107 Carbon dioxide 25 mmol/L 21-32 Serum or plasma anion gap determination (moles/volume) 10 mmol/L 5-14 Serum or plasma urea nitrogen measurement (mass/volume) 13 mg/dL 7-18 Serum or plasma creatinine measurement (mass/volume) 0.98 mg/dL 0.60-1.30 Serum or plasma urea nitrogen/creatinine mass ratio 13 NRG Serum or plasma creatinine measurement with calculation of estimated glomerular filtration rate > NRG Serum or plasma glucose measurement (mass/volume) 112 mg/dL 70-105 Serum or plasma calcium measurement (mass/volume) 8.5 mg/dL 8.5-10.1 Encounters ACCT No. Visit Date/Time Discharge Status Pt. Type Provider Facility Loc./Unit Complaint [id number] 12/24/2017 09:45:00 2017 00:01:00 DIS Outpatient MONIQUE AN FACCRALPH FACP CCDS [facility] CR STENT [id number] 08/28/2017 06:33:00 08/29/2017 10:15:00 DIS Outpatient SHANT KIRBY [facility] CATH CAD,ANGINA,SOB [id number] 07/05/2017 11:13:00 07/05/2017 16:25:00 DIS Emergency ROXANNA INGRAM [facility] ER CP [id number] 05/23/2017 12:00:00 05/24/2017 11:05:00 DIS Inpatient HOLGER DAVIDSON MD [facility] ICU CHEST PAIN/ACS [id number] 04/10/2017 06:48:00 04/11/2017 10:40:00 DIS Outpatient MONIQUE AN FACC, RALPH BOX CCDS [facility] CATH CAD,CAROTID ARTERIAL DISEASE [id number] 03/13/2017 07:59:00 03/13/2017 13:50:00 DIS Outpatient MONIQUE AN FACC, RALPH BOX CCDS [facility] CATH SOB,CAD [id number] 12/22/2016 12:49:00 12/23/2016 12:35:00 DIS Inpatient KHANG DENNY MD [facility] ICU CHEST PAIN [id number] 02/25/2016 09:32:00 02/25/2016 23:59:59 CLS Outpatient KHANG DENNY MD [facility] RAD CHRONIC SMOKER/COUGH [id number] 02/09/2015 14:22:00 02/10/2015 11:45:00 DIS Inpatient MONIQUE AN FACC, RALPH BOX CCDS [facility] CSD CHEST PAIN HYPERTENSIVE URGENCY [id number] 12/31/2017 11:00:00 ACT Outpatient RALPH AMAYA MD, FACC, FACP CCDS [facility] CR STENT [id number] 02/09/2015 14:22:00 Document Registration [id number] 01/03/2011 12:44:00 Document Registration
[2018-01-02 10:25] LABS: BASOPHILS % (AUTO) 0 % (0-10); EOSINOPHILS # (AUTO) 0.3 10^3/uL (0.0-0.3); EOSINOPHILS % (AUTO) 3 % (0-10); HEMATOCRIT 36 % (40-54); HEMOGLOBIN 12.8 G/DL (13.3-17.7); LYMPHOCYTES # (AUTO) 1.8 X 10^3 (1.0-4.0); LYMPHOCYTES % (AUTO) 19 % (12-44); MEAN CORPUSCULAR HEMOGLOBIN 34 PG (25-34); MEAN CORPUSCULAR HGB CONC 35 G/DL (32-36); MEAN CORPUSCULAR VOLUME 97 FL (80-99); MEAN PLATELET VOLUME 9.5 FL (7.4-10.4); MONOCYTES # (AUTO) 0.9 X 10^3 (0.0-1.0); MONOCYTES % (AUTO) 9 % (0-12); NEUTROPHILS # (AUTO) 6.7 X 10^3 (1.8-7.8); NEUTROPHILS % (AUTO) 69 % (42-75); PLATELET COUNT 232 10^3/uL (130-400); RED BLOOD COUNT 3.74 10^6/uL (4.35-5.85); RED CELL DISTRIBUTION WIDTH 13.6 % (10.0-14.5); WHITE BLOOD COUNT 9.7 10^3/uL (4.3-11.0)
[2018-01-02] MEDS ORDERED: ASPIRIN 81 MG CHEW (CHILDREN'S ASA) PO ONE (10:30)
[2018-01-02 10:46] LABS: INR 1.1 (0.8-1.4); PROTHROMBIN TIME PATIENT 14.3 SEC (12.2-14.7)
[2018-01-02 10:48] LABS: ALANINE AMINOTRANSFERASE 25 U/L (0-55); ALBUMIN 3.9 GM/DL (3.2-4.5); ALKALINE PHOSPHATASE 53 U/L (40-136); BILIRUBIN,TOTAL 1.4 MG/DL (0.1-1.0); BUN/CREATININE RATIO 13; CALCIUM 9.5 MG/DL (8.5-10.1); CARBON DIOXIDE 22 MMOL/L (21-32); CHLORIDE 105 MMOL/L (98-107); CREATININE SERUM 1.02 MG/DL (0.60-1.30); GFR ESTIMATED > 60; GLUCOSE 146 MG/DL (70-105); MAGNESIUM 1.1 MG/DL (1.8-2.4); POTASSIUM 4.4 MMOL/L (3.6-5.0); SODIUM 138 MMOL/L (135-145); TOTAL PROTEIN 6.9 GM/DL (6.4-8.2)
[2018-01-02] MEDS ORDERED: MAGNESIUM 1 GM/100 ML IVPB 100 ML IV SCH (11:00)
[2018-01-02 11:08] LABS: TSH (THYROID ANALYZER) 0.69 UIU/ML (0.35-4.94)
--- NOTE | 2018-01-02 11:10 | Diagnostic Imaging Report ---
Indication: Atrial fibrillation. Time of exam: 10:40 AM Correlation is made with prior study from 07/05/2017. The heart is enlarged but stable. There are changes of median sternotomy. No infiltrate or failure is detected. No effusion or pneumothorax is seen. Impression: Stable cardiomegaly and status post CABG. No acute feature is detected. Dictated by: Dictated on workstation # [id number]
[2018-01-02] MEDS ORDERED: MAGN400T29 PO (11:22)
--- NOTE | 2018-01-02 11:22 | ED Cardiac General ---
History of Present Illness General Chief Complaint: Chest Pain Stated Complaint: CARDIAC ISSUES Nursing Triage Note: ARRIVED VIA AMB FROM THE [facility]. STAFF STATES HE IS USUALLY IN SR ET TODAY HE WAS IN AFIB. PT STATES HE FEELS FINE. DENIES CHEST PAIN, SOA, OR PALPITATIONS. STATES HE WOULD LIKE TO GO HOME. Source: patient History of Present Illness Date Seen by Provider: Jan 02, 2018 Time Seen by Provider: 10:05 Initial Comments PT ARRIVES VIA POV FROM CARDIAC REHAB AT THE [facility] STATES HE WAS WALKING AND STAFF REPORT THAT HE WAS IN ATRIAL FIBRILLATION, SO SENT HERE. PT DOES NOT HAVE A HISTORY OF ATRIAL FIBRILLATION, AND PT IS COMPLETELY ASYMPTOMATIC PT HAS HAD 5 VESSEL CABG, CARDIAC STENTS X 2 AND ANGIOPLASTIES NO CHEST PAIN NO PALPITATIONS NO SYNCOPE/NEAR SYNCOPE NO DIZZINESS NO SHORTNESS OF BREATH NO SWEATS NO SWELLING TO FEET/ANKLES OR PAIN IN CALVES PT HAS CHRONIC NON-PRODUCTIVE COUGH FOR SEVERAL MONTHS, STATES IT IS GETTING BETTER. NO FEVER PT HAS NOT EATEN OR TAKEN AM MEDICATIONS TODAY PT IS ON PLAVIX DAILY PCP: DR. 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 AMAYA Allergies and Home Medications Allergies Coded Allergies: Penicillins (Verified Allergy, Unknown, 02/09/15) nitroglycerin (Verified Allergy, Unknown, 02/09/15) Home Medications Amlodipine Besylate 5 Mg Tablet, 5 MG PO DAILY, (Reported) Aspirin 81 Mg Tablet., 81 MG PO HS, (Reported) Atorvastatin Calcium 40 Mg Tablet, 40 MG PO HS Prescribed by: SHANT KIRBY on 05/24/17 0929 Clopidogrel Bisulfate 75 Mg Tablet, 75 MG PO DAILY, (Reported) Enalapril Maleate 10 Mg Tablet, 10 MG PO BID, (Reported) Fish Oil/Dha/Epa 1 Each Capsule, 1,200 MG PO BID, (Reported) Isosorbide Mononitrate 120 Mg Tab.er.24h, 120 MG PO DAILY, (Reported) Magnesium Oxide 400 Mg Tablet, 400 MG PO BID Prescribed by: JUMANA CABAN on 01/02/18 1122 Metformin HCl 500 Mg Tablet, 500 MG PO BID, (Reported) Metoprolol Tartrate 100 Mg Tablet, 100 MG PO BID, (Reported) Multivits,Ca,Min/Iron/FA/Lycop 1 Each Tablet, 1 TAB PO DAILY, (Reported) Omeprazole 20 Mg Capsule., 20 MG PO BID, (Reported) Patient Home Medication List Home Medication List Reviewed: Yes Review of Systems Constitutional: no symptoms reported EENTM: No Symptoms Reported Respiratory: No Symptoms Reported Cardiovascular: See HPI; Denies Chest Pain, Denies Edema, Denies Lightheadedness, Denies Syncope; Other (NO SENSATION OF IRREGULAR HEART BEAT) Gastrointestinal: No Symptoms Reported Genitourinary: No Symptoms Reported Musculoskeletal: no symptoms reported Skin: no symptoms reported Psychiatric/Neurological: No Symptoms Reported Endocrine: No Symptoms Reported Hematologic/Lymphatic: No Symptoms Reported Past Dmnozif-Kkpkei-Mleynk Hx Patient Social History Alcohol Use: Denies Use Alcohol Beverage of Choice: [place] Recreational Drug Use: No Smoking Status: Current Everyday Smoker (WAS SMOKING 6 CIGARS A DAY, NOW SMOKES 2 A DAY. ) Type Used: Cigars 2nd Hand Smoke Exposure: Yes Recent Foreign Travel: No Contact w/Someone Who Travel: No Recent Infectious Disease Expo: No Recent Hopitalizations: No Immunizations Up To Date Tetanus Booster (TDap): Unknown PED Vaccines UTD: No Date of Pneumonia Vaccine: Apr 25, 2014 Date of Influenza Vaccine: Apr 24, 2017 Seasonal Allergies Seasonal Allergies: No Past Medical History Surgeries: Yes (CARDIAC CATHS X 4 WITH STENTS X 2, ANGIOPLASTIES AND 5 VESSEL CABG) Cardiac, CABG, Coronary Stent, Gallbladder Respiratory: Yes COPD Currently Using CPAP: No Currently Using BIPAP: No Cardiac: Yes Coronary Artery Disease, Heart Attack, High Cholesterol, Hypertension Neurological: No Reproductive Disorders: No Sexually Transmitted Disease: No HIV/AIDS: No Genitourinary: No Gastrointestinal: Yes Gastroesophageal Reflux Musculoskeletal: No Endocrine: Yes Diabetes, Non-Insulin dep HEENT: Yes Cataract Loss of Vision: Denies Hearing Impairment: Denies Cancer: No Psychosocial: No Integumentary: No Blood Disorders: No Adverse Reaction/Blood Tranf: No Family Medical History FH: COPD (chronic obstructive pulmonary disease) 19 FATHER Myocardial infarction 19 MOTHER Physical Exam Vital Signs Vital Signs - First Documented 01/02/18 09:56 Temp 98.0 Pulse 74 Resp 16 B/P (MAP) 120/85 (97) Pulse Ox 95 O2 Delivery Room Air Capillary Refill : Less Than 3 Seconds Height, Weight, BMI Height: 5'9.00" Weight: 188lbs.8.0oz.85.835744uy; 29.5 BMI Method:Stated General Appearance: No Apparent Distress, WD/WN, Other (SMILING, TALKATIVE) Respiratory: Normal Breath Sounds, No Accessory Muscle Use, No Respiratory Distress Cardiovascular: No Edema, No JVD, No Murmur, Normal Peripheral Pulses, Irregularly Irregular (SHOWING NSR WITH FREQUENT MULTIFOCAL PVC'S AND PAC'S. ) Gastrointestinal: Non Tender, Soft Extremity: Pedal Edema (1+ ON RIGHT ( SIDE OF VEIN HARVEST FOR CABG) AND TRACE ON LEFT. NO CALF TENDERNESS) Neurologic/Psychiatric: Alert, Oriented x3, Normal Mood/Affect, oral health therapist II-XII Norm as Tested Skin: Normal Color, Warm/Dry Progress/Results/Core Measures Results/Orders Lab Results Laboratory Tests Test 01/02/18 10:19 Range/Units White Blood Count 9.7 4.3-11.0 10^3/uL Red Blood Count 3.74 L 4.35-5.85 10^6/uL Hemoglobin 12.8 L 13.3-17.7 G/DL Hematocrit 36 L 40-54 % Mean Corpuscular Volume 97 80-99 FL Mean Corpuscular Hemoglobin 34 25-34 PG Mean Corpuscular Hemoglobin Concent 35 32-36 G/DL Red Cell Distribution Width 13.6 10.0-14.5 % Platelet Count 232 130-400 10^3/uL Mean Platelet Volume 9.5 7.4-10.4 FL Neutrophils (%) (Auto) 69 42-75 % Lymphocytes (%) (Auto) 19 12-44 % Monocytes (%) (Auto) 9 0-12 % Eosinophils (%) (Auto) 3 0-10 % Basophils (%) (Auto) 0 0-10 % Neutrophils # (Auto) 6.7 1.8-7.8 X 10^3 Lymphocytes # (Auto) 1.8 1.0-4.0 X 10^3 Monocytes # (Auto) 0.9 0.0-1.0 X 10^3 Eosinophils # (Auto) 0.3 0.0-0.3 10^3/uL Basophils # (Auto) 0.0 0.0-0.1 10^3/uL Prothrombin Time 14.3 12.2-14.7 SEC INR Comment 1.1 0.8-1.4 Activated Partial Thromboplast Time 31 24-35 SEC Sodium Level 138 135-145 MMOL/L Potassium Level 4.4 3.6-5.0 MMOL/L Chloride Level 105 98-107 MMOL/L Carbon Dioxide Level 22 21-32 MMOL/L Anion Gap 11 5-14 MMOL/L Blood Urea Nitrogen 13 7-18 MG/DL Creatinine 1.02 0.60-1.30 MG/DL Estimat Glomerular Filtration Rate > 60 BUN/Creatinine Ratio 13 Glucose Level 146 H 70-105 MG/DL Calcium Level 9.5 8.5-10.1 MG/DL Magnesium Level 1.1 L 1.8-2.4 MG/DL Total Bilirubin 1.4 H 0.1-1.0 MG/DL Aspartate Amino Transf (AST/SGOT) 38 H 5-34 U/L Alanine Aminotransferase (ALT/SGPT) 25 0-55 U/L Alkaline Phosphatase 53 40-136 U/L Troponin I < 0.30 <0.30 NG/ML B-Type Natriuretic Peptide 412.9 H <100.0 PG/ML Total Protein 6.9 6.4-8.2 GM/DL Albumin 3.9 3.2-4.5 GM/DL TSH [place] Testing 0.69 0.35-4.94 UIU/ML Serum Alcohol < 10 <10 MG/DL My Orders Orders - JUMANA CABAN DO Ekg Tracing (01/02/18 10:05) Saline Lock/Iv-Start (01/02/18 10:17) O2 (01/02/18 10:17) Monitor-Rhythm Ecg Trace Only (01/02/18 10:17) Alcohol (01/02/18 10:17) BNP (01/02/18 10:17) Cbc With Automated Diff (01/02/18 10:17) Comprehensive Metabolic Panel (01/02/18 10:17) Magnesium (01/02/18 10:17) Protime With Inr (01/02/18 10:17) Partial Thromboplastin Time (01/02/18 10:17) Thyroid Analyzer (01/02/18 10:17) Troponin I (01/02/18 10:17) Chest 1 View, Ap/Pa Only (01/02/18 10:17) Aspirin Chewable Tablet (Baby Aspirin Ch (01/02/18 10:30) Magnesium 1 Gm/100 Ml Ivpb (Magnesium Delgado (01/02/18 11:00) General/Regular (01/02/18 Lunch) Medications Given in ED Current Medications Medications Dose Ordered Sig/Denise Route Start Time Stop Time Status Last Admin Dose Admin Aspirin 324 mg ONCE ONCE PO 01/02/18 10:30 01/02/18 10:31 DC 01/02/18 10:57 324 MG Vital Signs/I&O 01/02/18 01/02/18 09:56 13:20 Temp 98.0 Pulse 74 87 Resp 16 16 B/P (MAP) 120/85 (97) 140/72 Pulse Ox 95 98 O2 Delivery Room Air Room Air Blood Pressure Mean: 97 Progress Progress Note : Progress Note COMPLETELY ASYMPTOMATIC DURING ER STAY PT DID HAVE MUCH FEWER ECTOPIC BEATS AFTER MAGNESIUM INFUSED Initial ECG Impression Date: Jan 02, 2018 Initial ECG Impression Time: 10:04 Initial ECG Rate: 68 Initial ECG Rhythm: Normal Sinus (WITH MULTIFOCAL PVC'S ) Diagnostic Imaging Comments CXR--NO ACUTE PROCESS, PER RADIOLOGIST REPORT Reviewed: Reviewed by Me Departure Communication (Admissions) 1113--SPOKE WITH DR. Corry DAVIDSON. HE ADVISES TO SEND HOME, RX FOR MAGNESIUM 400 MG BID, AND HE WILL SEE PT IN OFFICE TOMORROW AT 1:[address] AMAYA IS OUT OF TOWN THIS WEEK Impression Primary Impression: Multifocal PVCs Additional Impressions: PAC'S REPORTED EPISODE OF ATRIAL FIBRILLATION Hypomagnesemia Disposition: 01 HOME, SELF-CARE Condition: Stable Departure-Patient Inst. Referrals: RALPH AMAYA MD FACP [facility]AC [facility]S HOLGER DAVIDSON MD (PCP/Family) Primary Care Physician Patient Instructions: Arrhythmias (DC), Atrial Fibrillation (DC), Low Magnesium Level (DC), Ventricular Premature Beats Add. Discharge Instructions: CONTINUE YOUR REGULAR MEDICATIONS PRESCRIBED FOLLOW UP WITH DR. DAVIDSON TOMORROW AT 1:[address] AMAYA SOON HE IS BACK IN THE OFFICE--CALL TO MAKE AN APPOINTMENT RETURN TO ER IF YOU HAVE CHEST PAIN, PALPITATIONS, SHORTNESS OF BREATH, DIZZINESS, SWEATS, PASSING OUT All discharge instructions reviewed with patient and/or family. Voiced understanding. Scripts Magnesium Oxide (Magox 400) 400 Mg Tablet 400 MG PO BID, #60 TAB Prov: JUMANA CABAN DO 01/02/18 JUMANA CABAN DO Jan 02, 2018 11:22
[2018-01-02 13:20] VITALS: BP 140/72
== END 2018-01-02 13:20 | disposition home or self-care (01) ==
LOC: EDUNIT# 09:40 → ER 09:41
DX: I48.91 Unspecified atrial fibrillation (principal); I49.3 Ventricular premature depolarization; I49.1 Atrial premature depolarization; E83.42 Hypomagnesemia; J44.9 Chronic obstructive pulmonary disease, unspecified; I25.10 Atherosclerotic heart disease of native coronary artery without angina pectoris; I25.2 Old myocardial infarction; E78.00 Pure hypercholesterolemia, unspecified; E11.9 Type 2 diabetes mellitus without complications; I10 Essential (primary) hypertension; F17.290 Nicotine dependence, other tobacco product, uncomplicated; Z95.1 Presence of aortocoronary bypass graft; Z79.02 Long term (current) use of antithrombotics/antiplatelets; Z88.0 Allergy status to penicillin; Z88.8 Allergy status to other drugs, medicaments and biological substances; Z79.82 Long term (current) use of aspirin
CPT/HCPCS: 36415; 71045; 80053; 80320; 83735; 83880; 84443; 84484; 85025; 85610; 85730; 93005; 93041; 96365; 96366

== ENCOUNTER 2018-01-07 17:24 | Outpatient (RCR) | payer MEDICARE ==
[~2018-01-07 17:24] MED LIST changes: -AMLO5TAB2 PO; +AMLO5TAB7 PO; +MAGN400T29 PO; +METF-397 PO; -METF500T5 PO
== END 2018-01-22 | disposition home or self-care (01) ==
LOC: CR 17:24
PROVIDERS: ATTEND Internal Medicine Cardiovascular Disease
DX: Z48.812 Encounter for surgical aftercare following surgery on the circulatory system (principal); Z95.5 Presence of coronary angioplasty implant and graft
CPT/HCPCS: 93798

== ENCOUNTER 2018-04-23 06:42 | Day surgery (SDC) | payer MEDICARE ==
[~2018-04-23] VITALS: Ht 175.3 cm; Wt 85.5 kg
[2018-04-23] VITALS (10 sets, daily range): BP systolic 135–165; BP diastolic 68–91
[2018-04-23] MEDS ORDERED: LIDOCAINE 1% INJ 20 ML 20 ML VIAL ONE (06:48)
[2018-04-23] MEDS ORDERED: HEParin (CATH LAB) 2,000 ML IV ONE (06:48)
[2018-04-23] MEDS ORDERED: NS IV 1000 ML 1,000 ML IV SCH ×2 (07:00→11:26)
[2018-04-23 07:07] LABS: HEMOGLOBIN 13.3 G/DL (13.3-17.7); MEAN PLATELET VOLUME 9.2 FL (7.4-10.4); RED BLOOD COUNT 3.78 10^6/uL (4.35-5.85); RED CELL DISTRIBUTION WIDTH 13.1 % (10.0-14.5); WHITE BLOOD COUNT 8.4 10^3/uL (4.3-11.0)
[2018-04-23 07:20] LABS: PROTHROMBIN TIME PATIENT 12.8 SEC (12.2-14.7)
[2018-04-23 07:24] LABS: ALANINE AMINOTRANSFERASE 25 U/L (0-55); ALKALINE PHOSPHATASE 45 U/L (40-136); BILIRUBIN,TOTAL 0.9 MG/DL (0.1-1.0); BUN/CREATININE RATIO 13; CALCIUM 9.4 MG/DL (8.5-10.1); CARBON DIOXIDE 21 MMOL/L (21-32); CHLORIDE 105 MMOL/L (98-107); CHOLESTEROL 127 MG/DL (< 200); CREATININE SERUM 1.12 MG/DL (0.60-1.30); GFR ESTIMATED > 60; GLUCOSE 103 MG/DL (70-105); HDL CHOLESTEROL 47 MG/DL (40-60); POTASSIUM 3.9 MMOL/L (3.6-5.0); SODIUM 141 MMOL/L (135-145); TOTAL PROTEIN 7.1 GM/DL (6.4-8.2); TRIGLYCERIDES 191 MG/DL (<150); VLDL CHOLESTEROL 38 MG/DL (5-40)
[2018-04-23] MEDS ORDERED: ACET-168 PO (08:32)
[2018-04-23] MEDS ORDERED: MIDAZOLAM 5 MG/5 ML (VERSED) VIAL ONE (09:49)
[2018-04-23] MEDS ORDERED: fentaNYL INJECTION 100 MCG/2 ML AMP ONE (09:49)
--- NOTE | 2018-04-23 09:55 | Cardiac Procedure Note-CS/ASA ---
Pre-Procedure Note Pre-Op Procedure Note H&P Reviewed The H&P was reviewed, patient examined and no changes noted. Date H&P Reviewed: Apr 23, 2018 Time H&P Reviewed: 09:55 Conscious Sedation Pre-Proced Time 09:55 ASA Score 3 For ASA 3 and 4: Consider anesthesia and medical clearance. Also, for patients with a history of failed moderate sedation consider anesthesia. Airway Lungs Heart ASA score ASA 1: a normal healthy patient ASA 2: a patient with a mild systemic disease (mid diabetes, controlled hypertension, obesity ASA 3: a patient with a severe systemic disease that limits activity (angina , COPD, prior Myocardial infarction) ASA 4: a patient with an incapacitating disease that is a constant threat to life (CHF, renal failure) ASA 5: a moribund patient not expected to survive 24 hrs. (ruptured aneurysm) ASA 6: a declared brain patient whose organs are being harvested. For emergent operations, add the letter E after the classification Mallampati Classification Grade 2 Sedation Plan Analgesia, Amnesia, Plan communicated to team members, Discussed options with patient/fam, Discussed risks with patient/fam The patient is an appropriate candidate to undergo the planned procedure, sedation, and anesthesia. The patient immediately re-assessed prior to indication. RALPH AMAYA MD FACP FAC [facility]S Apr 23, 2018 09:55
--- NOTE | 2018-04-23 11:29 | Discharge Inst-Post CATH ---
Discharge Inst-CATH Post Cardiac Cath D/C Inst Follow Up/Plan F/u with Dr Broderick in 1-2 weeks CARDIAC CATH DISCHARGE INSTRUCTIONS *Hold Metformin for 48 hours post heart cath. ACTIVITY * Go Home directly and rest. * Limit activity of the leg (or wrist if it was used) for 7 days including aerobics, swimming, jogging, bicycling, etc. * Restrict stair-climbing for 7 days if possible, if not, climb up with your non -cath leg, then bring together on the same step. * Avoid lifting, pushing, pulling or excessive movement of the affected extremity for 7 days. * Customary sexual activity may be resumed after 2 days-use caution not to use a position that strains or causes pain to the affected extremity. * No driving for 24 hours. * NO SMOKING. * Avoid straining for bowel movements for 7 days. * Gentle walking on level ground is allowed. * Returning to work will depend on the type of procedure and the results. Your doctor will discuss this with you. CALL YOUR DOCTOR FOR ANY OF THE FOLLOWING: *If bleeding from the puncture site occurs- Apply gentle pressure to site with clean cloth and call your doctor or EMS. * If a knot or lump forms under the skin, increases in size, or causes pain. * If bruising appears to be worsening or moving further down your leg instead of disappearing. * Temperature above 101 F. CARE OF YOUR GROIN INCISION; * Bruising or purple discoloration of the skin near the puncture site is common. * You may shower only, no bathtub bathing for 5 days. Be careful to avoid slipping as your leg may feel stiff. * If a closure device was used on your femoral artery, please see the attached guide regarding care of the device and your leg. * Leave the dressing on, until removed by office staff. CARE OF YOUR WRIST INCISION; * Bruising or purple discoloration of the skin near the puncture site is common. * You may shower. * DO NOT submerge wrist. * Leave dressing on, until removed by office staff.. RALPH BRODERICK MD [facility] Apr 23, 2018 11:29
[2018-04-23] MEDS ORDERED: PATIENT MAY USE OWN MEDS, ALL PO SCH (11:30)
--- NOTE | 2018-04-23 11:30 | Discharge Inst-Cardiology ---
Discharge Inst-Cardiac Discharge Medications Continued Medications: Acetaminophen (Acetaminophen Extra Strength) 500 Mg Tablet 1000 MG PO Q6H PRN for PAIN-MILD, TAB Amlodipine Besylate (Amlodipine Besylate) 5 Mg Tablet 5 MG PO DAILY, TAB Aspirin (Aspir 81) 81 Mg Tablet.dr 81 MG PO HS, TAB Atorvastatin Calcium (Lipitor) 40 Mg Tablet 40 MG PO HS, #30 TAB 5 Refills Clopidogrel Bisulfate (Plavix) 75 Mg Tablet 75 MG PO DAILY, TAB Enalapril Maleate (Enalapril Maleate) 10 Mg Tablet 10 MG PO BID, TAB Fish Oil/Dha/Epa (Fish Oil 1,200 mg Fish Oil) 1 Each Capsule 1200 MG PO BID, CAP Isosorbide Mononitrate (Isosorbide Mononitrate ER) 120 Mg Tab.er.24h 120 MG PO DAILY, TAB Magnesium Oxide (Magox 400) 400 Mg Tablet 400 MG PO BID, #60 TAB Metformin HCl (Metformin HCl) 500 Mg Tablet 500 MG PO BID, TAB Metoprolol Tartrate (Metoprolol Tartrate) 100 Mg Tablet 100 MG PO BID, TAB Multivits,Ca,Min/Iron/FA/Lycop (Centrum Men's Tablet) 1 Each Tablet 1 TAB PO DAILY, TAB Omeprazole (Omeprazole) 20 Mg Capsule.dr 20 MG PO BID, CAP Patient Instructions Patient Instructions: HOLD METFORMIN UNTIL THE EVENING OF 04/25/18, then resume previous home dose RALPH AMAYA MD FACP [facility]S Apr 23, 2018 11:30
--- NOTE | 2018-04-23 13:08 | CARDIAC CATHETERIZATION ---
DATE OF SERVICE: 04/23/2018 CARDIAC CATHETERIZATION REPORT The patient is a 77-year-old man with a history of coronary artery disease, previous coronary artery bypass surgery and subsequent coronary graft stenting. He has had recurrent symptoms suggestive of recurrent angina. Cardiac catheterization was carried out today after having obtained an informed consent. PROCEDURE: She was brought to the cardiac catheterization laboratory in a fasting state. Right groin was prepared and draped in usual sterile fashion. A 1% lidocaine was used for local anesthesia. Modified Seldinger technique was used to advance a 5-Yakut sheath in the right femoral artery. A 5-Yakut JL4 catheter was used for left coronary angiography, 5-Yakut JR4 catheter was used for right coronary angiography and for angiography of the saphenous vein grafts and for angiography of the left internal mammary artery graft to the left anterior descending artery. A 5-Yakut pigtail catheter was used for left heart catheterization, left ventricular angiography. At the end of the procedure, following removal of the diagnostic catheters, angiography of the right femoral artery was carried out through the sheath and Mynx was used to achieve hemostasis. He tolerated the procedure well. HEMODYNAMICS: Left ventricular end-diastolic pressure following coronary angiography was 22 mmHg. There was no significant pressure gradient on pullback across the aortic valve. Ascending aortic pressure was 126/63 with a mean of 91 mmHg. LEFT VENTRICULAR ANGIOGRAPHY: Left ventricular angiography was carried out in the right anterior oblique projection. Global left ventricular systolic function is well preserved. The left ventricular ejection fraction estimated to be 55% to 60%. CORONARY ANGIOGRAPHY: Coronary calcification is present. Left main coronary artery does not exhibit significant disease. Left anterior descending artery has 90% to 95% proximal stenosis and is occluded in its mid portion. The left circumflex artery has an occluded obtuse marginal system. There is a patent stent in the proximal left circumflex artery. The right coronary artery is occluded at its ostium. SAPHENOUS VEIN GRAFT ANGIOGRAPHY: The most cephalic saphenous vein graft is to a bifurcating obtuse marginal system. This is widely patent and has moderate diffuse disease. There is good distal runoff. Two saphenous vein grafts, presumably two diagonal branches, are occluded. There is a patent saphenous vein graft to the posterior descending branch of the right coronary artery. It exhibits a patent stent in its distal portion that extends into the distal portion of the posterior descending artery. The stent is patent and does not exhibit significant disease and there is good distal flow. There is also retrograde flow into the proximal portion of the posterior descending and the distal portion of the right coronary. At the point of the retrograde flow, there is approximately 60% stenosis, unchanged compared to previous study. LEFT INTERNAL MAMMARY ARTERY GRAFT ANGIOGRAPHY: Left internal mammary artery, distal left anterior descending artery is widely patent with good distal runoff. CONCLUSIONS: 1. Coronary artery disease primarily consisting of mid vessel occlusion of left anterior descending, ostial occlusion of an obtuse marginal system, and ostial occlusion of the right coronary. There is a patent stent in the proximal left circumflex. 2. Two occluded saphenous vein grafts, presumably to diagonal branches of the left anterior descending. 3. Patent saphenous vein graft to a bifurcating obtuse marginal system of the left circumflex. 4. Patent saphenous vein graft to the posterior descending branch with a patent stent in the distal portion of the graft extending into the posterior descending branch of the right coronary. 5. Patent left internal mammary artery graft to distal left anterior descending artery. DISCUSSION AND RECOMMENDATIONS: Based on results of the study, it appears appropriate to continue a conservative approach. Risk factor modification has been reviewed. Outpatient followup is advised. Job ID: [id number] DocumentID: [id number] Dictated Date: 04/23/2018 11:19:47 Mask Design Engineer Date: 04/23/2018 13:07:58 Dictated By: RALPH AMAYA MD, MA, FACP, FACC, MTDD
== END 2018-04-23 14:25 | disposition home or self-care (01) ==
LOC: CATH 06:42
PROVIDERS: ATTEND Internal Medicine Cardiovascular Disease
DX: I25.10 Atherosclerotic heart disease of native coronary artery without angina pectoris (principal); T82.858A Stenosis of other vascular prosthetic devices, implants and grafts, initial encounter; I10 Essential (primary) hypertension; E78.5 Hyperlipidemia, unspecified; E11.9 Type 2 diabetes mellitus without complications; K21.9 Gastro-esophageal reflux disease without esophagitis; F17.290 Nicotine dependence, other tobacco product, uncomplicated; Z79.82 Long term (current) use of aspirin; Z79.84 Long term (current) use of oral hypoglycemic drugs; Z79.899 Other long term (current) drug therapy; Z95.1 Presence of aortocoronary bypass graft; Z95.5 Presence of coronary angioplasty implant and graft
CPT/HCPCS: 36415; 80053; 80061; 85027; 85610; 85730; 87081; 93005; 93459

== ENCOUNTER → 2018-07-09 | Outpatient (CLI) | payer MEDICARE ==
[~2018-07-09] MED LIST changes: +ACET-168 PO
--- NOTE | 2018-07-09 13:43 | Diagnostic Imaging Report ---
EXAMINATION: Right hip at 10:34 a.m. INDICATION: Hip pain. FINDINGS: AP and lateral views were obtained. There are no prior studies available for comparison. There is no fracture, dislocation, or acute bony abnormality evident. 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 The soft tissues are unremarkable. IMPRESSION: 1. There is no evidence for an acute bony abnormality. 2. If clinical concern regarding an underlying abnormality persists and further imaging is desired, then MRI will be recommended. Dictated by: Dictated on workstation # [id number]
== END ==
LOC: RAD 09:48
PROVIDERS: ATTEND Family Medicine
DX: M25.551 Pain in right hip (principal)
CPT/HCPCS: 73502

== ENCOUNTER 2018-11-20 10:10 | Emergency (ER) | payer MEDICARE ==
[~2018-11-20] VITALS: Ht 175.3 cm; Wt 86.4 kg
[~2018-11-20 10:10] MED LIST changes: -AMLO5TAB7 PO; +AMLO5TAB9 PO; -ISOS120T6 PO; +ISOS120T9 PO
[2018-11-20] MEDS ORDERED: NS IV 1000 ML 1,000 ML IV ONE (10:12)
[2018-11-20 10:23] LABS: BASOPHILS % (AUTO) 0 % (0-10); EOSINOPHILS # (AUTO) 0.3 10^3/uL (0.0-0.3); EOSINOPHILS % (AUTO) 4 % (0-10); HEMATOCRIT 34 % (40-54); HEMOGLOBIN 12.1 G/DL (13.3-17.7); LYMPHOCYTES # (AUTO) 2.2 X 10^3 (1.0-4.0); LYMPHOCYTES % (AUTO) 29 % (12-44); MEAN CORPUSCULAR HEMOGLOBIN 35 PG (25-34); MEAN CORPUSCULAR HGB CONC 35 G/DL (32-36); MEAN CORPUSCULAR VOLUME 98 FL (80-99); MEAN PLATELET VOLUME 9.1 FL (7.4-10.4); MONOCYTES # (AUTO) 0.7 X 10^3 (0.0-1.0); MONOCYTES % (AUTO) 9 % (0-12); NEUTROPHILS # (AUTO) 4.2 X 10^3 (1.8-7.8); NEUTROPHILS % (AUTO) 58 % (42-75); PLATELET COUNT 254 10^3/uL (130-400); WHITE BLOOD COUNT 7.3 10^3/uL (4.3-11.0)
[2018-11-20 10:38] LABS: INR 1.1 (0.8-1.4)
[2018-11-20 10:38] LABS: BILIRUBIN,URINE NEGATIVE (NEGATIVE); CLARITY,URINE CLEAR; COLOR,URINE YELLOW; GLUCOSE, URINE (UA) NEGATIVE (NEGATIVE); KETONES,URINE NEGATIVE (NEGATIVE); LEUKOCYTE ESTERASE ,URINE 1+ (NEGATIVE); NITRITE,URINE NEGATIVE (NEGATIVE); PH,URINE 5 (5-9); PROTEIN,URINE 2+ (NEGATIVE); UROBILINOGEN,URINE NORMAL (NORMAL)
[2018-11-20 10:47] LABS: BACTERIA,URINE TRACE /HPF; SQUAMOUS EPITHELIAL CELL,UR 0-2 /HPF
[2018-11-20 10:50] LABS: ALANINE AMINOTRANSFERASE 16 U/L (0-55); ALBUMIN 3.6 GM/DL (3.2-4.5); ALKALINE PHOSPHATASE 55 U/L (40-136); BILIRUBIN,TOTAL 0.7 MG/DL (0.1-1.0); BUN/CREATININE RATIO 8; CALCIUM 9.1 MG/DL (8.5-10.1); CARBON DIOXIDE 20 MMOL/L (21-32); CHLORIDE 105 MMOL/L (98-107); CREATINE KINASE 30 U/L (30-200); CREATININE SERUM 1.51 MG/DL (0.60-1.30); GFR ESTIMATED 45; GLUCOSE 121 MG/DL (70-105); MAGNESIUM 1.4 MG/DL (1.8-2.4); POTASSIUM 4.1 MMOL/L (3.6-5.0); SODIUM 141 MMOL/L (135-145); TOTAL PROTEIN 6.2 GM/DL (6.4-8.2)
[2018-11-20 11:09] LABS: CREATINE KINASE MB 1.1 NG/ML (<6.6); TSH (THYROID ANALYZER) 1.04 UIU/ML (0.35-4.94)
--- NOTE | 2018-11-20 11:28 | Diagnostic Imaging Report ---
PROCEDURE: CT head wo r/o stroke. TECHNIQUE: Multiple contiguous axial images were obtained through the brain without the use of intravenous contrast. Auto Exposure Controls were utilized during the CT exam to meet ALARA standards for radiation dose reduction. INDICATION: Syncope. COMPARISON: No prior studies are available for comparison. FINDINGS: Ventricles and sulci are appropriate for the patient's age. There is a very shallow acute subdural hematoma along the right cerebral convexity. This is seen right posterior parietal lobe measuring to a thickness of 4 mm. There may be a tiny amount of blood along the anterior falx as well. More cephalad, there is some minimal linear high density along the right frontal lobe which could represent some minimal acute subarachnoid blood. No intraventricular hemorrhage is seen. There is no mass effect or midline shift. Cisterns are patent. Visualized paranasal sinuses demonstrate some mucosal thickening in the right maxillary sinus. IMPRESSION: Intracranial hemorrhage, as described. No mass effect or midline shift is detected. Results were discussed with Dr. Esquivel of the emergency department at 1100 hrs. Dictated by: Dictated on workstation # [id number]
[2018-11-20] MEDS: MAGNESIUM 1 GM/100 ML IVPB 100 ML IV SCH ×2 (11:36→13:09)
--- NOTE | 2018-11-20 13:06 | NUR ---
DISPATCH AND CAPTAIN NOTIFIED OF PENDING TRANSFER.
[2018-11-20 13:55] VITALS: BP 158/79
--- NOTE | 2018-11-20 14:02 | Diagnostic Imaging Report ---
INDICATION: Syncope, dizziness, and lightheadedness. TECHNIQUE: A PA chest was obtained at 1054 hours. FINDINGS: There is post sternotomy change. The heart is enlarged. There is central vascular prominence. There are chronic appearing increased interstitial markings. There is no acute consolidation, pneumothorax, or pleural fluid. IMPRESSION: Cardiomegaly with post sternotomy changes. Chronic appearing increased interstitial markings are present which appear similar to 01/02/2018. No new consolidation or pleural fluid. Dictated by: Dictated on workstation # [id number]
--- NOTE | 2018-11-29 05:52 | ED Syncope ---
General Chief Complaint: Dizziness/Syncope Stated Complaint: NEAR SYNCOPE Nursing Triage Note: felt light headed at home sat down in chair, no LOC. A& O Source of Information: Patient History of Present Illness Date Seen by Provider: November 20, 2018 Time Seen by Provider: 10:11 Initial Comments PT ARRIVES VIA EMS FROM HOME PT STATES HE GOT UP TO GO TO THE BATHROOM AND SUDDENLY FELT VERY WEAK, LIGHTHEADED AND ALMOST PASSED OUT SAT DOWN IN A CHAIR--NO INJURY STATES HE IS FEELING BETTER NOW NO CHEST PAIN NO SHORTNESS OF BREATH + SWEATS NO NAUSEA/VOMITING/DIARRHEA OR ABDOMINAL PAIN NO PALPITATIONS NO HEADACHE NO VISION CHANGES NO PARESTHESIAS OR MOTOR DEFICITS NO URINARY SYMPTOMS NO FEVER, BUT DID HAVE A MILD COLD RECENTLY, BUT THOSE SYMPTOMS RESOLVED HAS NOT TAKEN ANY OF HIS MEDICATIONS TODAY NO CHANGES IN MEDICATIONS PT HAS AN EXTENSIVE CARDIAC HISTORY --HAS HAD 5 VESSEL CABG AND STENTS X 2 PLUS ANGIOPLASTIES; ALSO HAS ATRIAL FIBRILLATION AND IS ON PLAVIX AND ASPIRIN PT CONTINUES TO SMOKE CIGARS DAILY PT ALSO DRINKS " A COUPLE " OF DRINKS A DAY PT STATES HE DID FALL A WEEK AGO---STATES HE WAS JUST WALKING AND FELL BACK AND HIT HIS HEAD AND HIS BACK ON THE DOOR NO LOSS OF CONSCIOUSNESS DID NOT SEEK CARE NO NECK PAIN NO HEADACHE PT HAS CHRONIC BACK PAIN AND IS SUPPOSED TO BE HAVING BACK SURGERY NEXT WEEK BY DR. Miky PARRISH AT [address] NO INCREASE IN CHRONIC BACK PAIN . PCP: DR. Corry DAVIDSON PHOTOGRAPHER ASSISTANT: DR. AMAYA Allergies and Home Medications Allergies Coded Allergies: Penicillins (Verified Allergy, Unknown, 11/20/18) nitroglycerin (Verified Allergy, Unknown, 11/20/18) Home Medications Acetaminophen 500 Mg Tablet, 1,000 MG PO Q6H PRN for PAIN-MILD, (Reported) Amlodipine Besylate 5 Mg Tablet, 5 MG PO DAILY, (Reported) Aspirin 81 Mg Tablet.dr, 81 MG PO HS, (Reported) Atorvastatin Calcium 40 Mg Tablet, 40 MG PO HS Prescribed by: SHANT KIRBY on 05/24/17 0977 Clopidogrel Bisulfate 75 Mg Tablet, 75 MG PO DAILY, (Reported) Enalapril Maleate 10 Mg Tablet, 10 MG PO BID, (Reported) Fish Oil/Dha/Epa 1 Each Capsule, 1,200 MG PO BID, (Reported) Isosorbide Mononitrate 120 Mg Tab.er.24h, 120 MG PO DAILY, (Reported) Magnesium Oxide 400 Mg Tablet, 400 MG PO BID Prescribed by: JUMANA CABAN on 01/02/18 1122 Metformin HCl 500 Mg Tablet, 500 MG PO BID, (Reported) Metoprolol Tartrate 100 Mg Tablet, 100 MG PO BID, (Reported) Multivits,Ca,Min/Iron/FA/Lycop 1 Each Tablet, 1 TAB PO DAILY, (Reported) Omeprazole 20 Mg Capsule.dr, 20 MG PO BID, (Reported) Patient Home Medication List Home Medication List Reviewed: Yes Review of Systems Constitutional: see HPI, diaphoresis, dizziness, weakness EENTM: no symptoms reported; No blurred vision, No double vision, No vision loss Respiratory: no symptoms reported; No short of breath Cardiovascular: No chest pain; edema (CHRONIC/STABLE), Hx of Intervention; No palpitations; syncope (NEAR-SYNCOPE) Gastrointestinal: no symptoms reported; No abdominal pain, No nausea, No vomiting Genitourinary: no symptoms reported Musculoskeletal: see HPI Skin: no symptoms reported Psychiatric/Neurological: See HPI (NEAR-SYNCOPE); Denies Headache, Denies Numbness, Denies Paresthesia, Denies Seizure, Denies Tingling, Denies Tremors, Denies Weakness Past Eyaiysb-Lciqyo-Kkoapg Hx Patient Social History Alcohol Use: Regular Use (DRINKS "A COUPLE" OF DRINKS EVERY DAY) Number of Drinks Today: BB Alcohol Beverage of Choice: [place] Recreational Drug Use: No Smoking Status: Current Everyday Smoker (SMOKES CIGARS DAILY) Type Used: Cigars 2nd Hand Smoke Exposure: Yes Recent Foreign Travel: No Contact w/Someone Who Travel: No Recent Infectious Disease Expo: No Recent Hopitalizations: No Physical Abuse: No Sexual Abuse: No Mistreated: No Fear: No Immunizations Up To Date Tetanus Booster (TDap): Unknown PED Vaccines UTD: No Date of Pneumonia Vaccine: Apr 25, 2014 Date of Influenza Vaccine: Apr 10, 2018 Seasonal Allergies Seasonal Allergies: No Past Medical History Surgeries: Yes (CARDIAC CATHS X 4 WITH STENTS X 2, ANGIOPLASTIES AND 5 VESSEL CABG) Cardiac, CABG, Coronary Stent, Gallbladder Respiratory: Yes COPD Currently Using CPAP: No Currently Using BIPAP: No Cardiac: Yes (LAST CATH 03/2018--NO INTERVENTION) Chronic Edema/Swelling, Coronary Artery Disease, Heart Attack, High Cholesterol, Hypertension Neurological: No Reproductive Disorders: No Sexually Transmitted Disease: No HIV/AIDS: No Genitourinary: No Gastrointestinal: Yes Gastroesophageal Reflux Musculoskeletal: Yes Chronic Back Pain Endocrine: Yes Diabetes, Non-Insulin dep HEENT: Yes Cataract Loss of Vision: Denies Hearing Impairment: Denies Cancer: No Psychosocial: No Integumentary: No Blood Disorders: No Adverse Reaction/Blood Tranf: No Family Medical History FH: COPD (chronic obstructive pulmonary disease) 19 FATHER Myocardial infarction 19 MOTHER Physical Exam Vital Signs Capillary Refill : Less Than 3 Seconds Height, Weight, BMI Height: 5'9.00" Weight: 190lbs. 8.0oz. [id number]; 27.8 BMI Method:Stated General Appearance: No Apparent Distress, WD/WN, Other (+ ODOR OF ETOH) HEENT: PERRL/EOMI Neck: Full Range of Motion, Normal Inspection, Non Tender, Supple Cardiovascular: Regular Rate, Rhythm, No JVD, No Murmur, Normal Peripheral Pulses Respiratory: Chest Non Tender, Normal Breath Sounds, No Accessory Muscle Use Gastrointestinal: Non Tender, Soft Back: No CVA Tenderness, No Vertebral Tenderness, Other (HAS NEARLY RESOLVED FAINT YELLOW BRUISING TO BILATERAL SCAPULAR AREAS. NO TENDERNESS OR DEFORMITY) Extremities: Pedal Edema (TRACE ON LEFT , 1+ ON RIGHT--SIDE OF PREVIOUS VEIN GRAFT HARVEST) Neurologic/Psychiatric: Alert, Oriented x3, No Motor/Sensory Deficits, Normal Mood/Affect, weathercaster II-XII Norm as Tested Motor/Sensory: No Motor Deficit, No Sensory Deficit, No Pronator Drift Skin: Normal Color, Warm/Dry Progress/Results/Core Measures Results/Orders Lab Results Laboratory Tests Test 11/20/18 10:10 11/20/18 10:12 11/20/18 10:30 Range/Units Lab Scanned Report Referred Lab Report [id number] White Blood Count 7.3 4.3-11.0 10^3/uL Red Blood Count 3.50 L 4.35-5.85 10^6/uL Hemoglobin 12.1 L 13.3-17.7 G/DL Hematocrit 34 L 40-54 % Mean Corpuscular Volume 98 80-99 FL Mean Corpuscular Hemoglobin 35 H 25-34 PG Mean Corpuscular Hemoglobin Concent 35 32-36 G/DL Red Cell Distribution Width 13.0 10.0-14.5 % Platelet Count 254 130-400 10^3/uL Mean Platelet Volume 9.1 7.4-10.4 FL Neutrophils (%) (Auto) 58 42-75 % Lymphocytes (%) (Auto) 29 12-44 % Monocytes (%) (Auto) 9 0-12 % Eosinophils (%) (Auto) 4 0-10 % Basophils (%) (Auto) 0 0-10 % Neutrophils # (Auto) 4.2 1.8-7.8 X 10^3 Lymphocytes # (Auto) 2.2 1.0-4.0 X 10^3 Monocytes # (Auto) 0.7 0.0-1.0 X 10^3 Eosinophils # (Auto) 0.3 0.0-0.3 10^3/uL Basophils # (Auto) 0.0 0.0-0.1 10^3/uL Prothrombin Time 15.0 H 12.2-14.7 SEC INR Comment 1.1 0.8-1.4 Activated Partial Thromboplast Time 29 24-35 SEC Sodium Level 141 135-145 MMOL/L Potassium Level 4.1 3.6-5.0 MMOL/L Chloride Level 105 98-107 MMOL/L Carbon Dioxide Level 20 L 21-32 MMOL/L Anion Gap 16 H 5-14 MMOL/L Blood Urea Nitrogen 12 7-18 MG/DL Creatinine 1.51 H 0.60-1.30 MG/DL Estimat Glomerular Filtration Rate 45 BUN/Creatinine Ratio 8 Glucose Level 121 H 70-105 MG/DL Calcium Level 9.1 8.5-10.1 MG/DL Corrected Calcium 9.4 8.5-10.1 MG/DL Magnesium Level 1.4 L 1.8-2.4 MG/DL Total Bilirubin 0.7 0.1-1.0 MG/DL Aspartate Amino Transf (AST/SGOT) 23 5-34 U/L Alanine Aminotransferase (ALT/SGPT) 16 0-55 U/L Alkaline Phosphatase 55 40-136 U/L Total Creatine Kinase 30 30-200 U/L Creatine Kinase MB 1.1 <6.6 NG/ML Myoglobin 53.6 10.0-92.0 NG/ML Troponin I < 0.028 <0.028 NG/ML Total Protein 6.2 L 6.4-8.2 GM/DL Albumin 3.6 3.2-4.5 GM/DL TSH [facility] Testing 1.04 0.35-4.94 UIU/ML Serum Alcohol 29 H <10 MG/DL Urine Color YELLOW Urine Clarity CLEAR Urine pH 5 5-9 Urine Specific [place] 1.015 L 1.016-1.022 Urine Protein 2+ H NEGATIVE Urine Glucose (UA) NEGATIVE NEGATIVE Urine Ketones NEGATIVE NEGATIVE Urine Nitrite NEGATIVE NEGATIVE Urine Bilirubin NEGATIVE NEGATIVE Urine Urobilinogen NORMAL NORMAL MG/DL Urine Leukocyte Esterase 1+ H NEGATIVE Urine RBC (Auto) NEGATIVE NEGATIVE Urine RBC NONE /HPF Urine WBC 2-5 /HPF Urine Squamous Epithelial Cells 0-2 /HPF Urine Crystals NONE /LPF Urine Bacteria TRACE /HPF Urine Casts PRESENT /LPF Urine Hyaline Casts 10-25 H /LPF Urine Mucus NEGATIVE /LPF Urine Culture Indicated YES Micro Results Microbiology 11/20/18 Urine Culture - Final, Complete NO GROWTH My Orders Orders - JUMANA CABAN DO Ed Iv/Invasive Line Start (11/20/18 10:12) Ekg Tracing (11/20/18 10:12) O2 (11/20/18 10:12) Monitor-Rhythm Ecg Trace Only (11/20/18 10:12) Chest 1 View, Ap/Pa Only (11/20/18 10:12) Ct Head Wo-R/O Stroke (11/20/18 10:12) Cbc With Automated Diff (11/20/18 10:12) Comprehensive Metabolic Panel (11/20/18 10:12) Creatine Kinase (11/20/18 10:12) Creatine Kinase Mb (11/20/18 10:12) Magnesium (11/20/18 10:12) Protime With Inr (11/20/18 10:12) Partial Thromboplastin Time (11/20/18 10:12) Thyroid Analyzer (11/20/18 10:12) Troponin I (11/20/18 10:12) Ua Culture If Indicated (11/20/18 10:12) Myoglobin Serum (11/20/18 10:12) Ed Iv/Invasive Line Start (11/20/18 10:12) Ns Iv 1000 Ml (Sodium Chloride 0.9%) (11/20/18 10:12) Alcohol (11/20/18 10:21) Urine Culture (11/20/18 10:30) Magnesium 1 Gm/100 Ml Ivpb (Magnesium Delgado (11/20/18 11:30) Iv Infusion <= First Hr Ed (11/20/18 ) Blood Pressure Mean: 105 Progress Progress Note : Progress Note NO DETERIORATION IN PT'S CONDITION DURING ER STAY Initial ECG Impression Date: November 20, 2018 Initial ECG Impression Time: 10:15 Initial ECG Rate: 56 Initial ECG Rhythm: Normal Sinus (PAC'S, IVCD) Initial ECG Comparisson: Unchanged Diagnostic Imaging Comments CT HEAD--RIGHT PARIETAL SUBDURAL HEMATOMA AND SMALL SUBARACHNOID BLEED RIGHT FRONTAL AREA--PER RADIOLOGIST, DR. RIGGINS AT 1100 CXR-CHRONIC CHANGES, NO ACUTE PROCESS, PER RADIOLOGIST REPORT Reviewed: Reviewed by Me, Discussed w/Radiologist Departure Communication (Admissions) 1107--CALLED MARCELLO HELMS--WILL CALL BACK 1127--CALLED MARCELLO HELMS, PAGING NEUROSURGEON 1138--SPOKE WITH MARCELLO AND DR. RONQUILLO, NEUROSURGEON--ON ICU DIVERSION, CANNOT ACCEPT PT 1139--CALLED [facility], HAVE BEDS, PAGING NEUROSURGEON 1153--SPOKE WITH DR. SANTAMARIA, NEUROSURGEON, SHE ADVISES TO ADMIT TO HOSPITALIST AND SHE WILL SEE PT IN CONSULT 1205--SPOKE WITH DR. HEMPHILL, HOSPITALIST, ACCEPTS PT FOR ADMIT/TRANSFER Impression Primary Impression: SUBDURAL AND SUBARACHNOID BLEED Additional Impressions: PLAVIX AND ASPIRIN THERAPY FOR ATRIAL FIB AN ASVD S/P NEAR SYNCOPE Status post fall NIDDM HTN (hypertension) Alcohol dependence, daily use Disposition: 02 XFER SHT-TRM HOSP Condition: Improved Transfer Transfer Facility: [facility] Method of Transfer: EMS Departure-Patient Inst. Referrals: HOLGER DAVIDSON MD (PCP) Primary Care Physician JUMANA CABAN DO Nov 29, 2018 05:52
== END 2018-11-20 13:45 | disposition short-term general hospital (02) ==
LOC: EDUNIT# 10:10 → ER 10:10
DX: S06.5X0A Traumatic subdural hemorrhage without loss of consciousness, initial encounter (principal); S06.6X0A Traumatic subarachnoid hemorrhage without loss of consciousness, initial encounter; R55 Syncope and collapse; E11.9 Type 2 diabetes mellitus without complications; F10.20 Alcohol dependence, uncomplicated; I48.91 Unspecified atrial fibrillation; J44.9 Chronic obstructive pulmonary disease, unspecified; I25.10 Atherosclerotic heart disease of native coronary artery without angina pectoris; I25.2 Old myocardial infarction; E78.00 Pure hypercholesterolemia, unspecified; I10 Essential (primary) hypertension; K21.9 Gastro-esophageal reflux disease without esophagitis; F17.290 Nicotine dependence, other tobacco product, uncomplicated; Z79.82 Long term (current) use of aspirin; Z82.49 Family history of ischemic heart disease and other diseases of the circulatory system; Z95.1 Presence of aortocoronary bypass graft; Z95.5 Presence of coronary angioplasty implant and graft; Z88.0 Allergy status to penicillin; Z88.8 Allergy status to other drugs, medicaments and biological substances; Z79.02 Long term (current) use of antithrombotics/antiplatelets; Z79.84 Long term (current) use of oral hypoglycemic drugs; W01.198A Fall on same level from slipping, tripping and stumbling with subsequent striking against other object, initial encounter; Y92.002 Bathroom of unspecified non-institutional (private) residence as the place of occurrence of the external cause
CPT/HCPCS: 36415; 70450; 71045; 80053; 80320; 81000; 82550; 82553; 83735; 83874; 84443; 84484; 85025; 85610; 85730; 87088; 93005; 93041; 96361; 96365; 96366

== ENCOUNTER → 2018-11-28 | Day surgery (SDC) | payer MEDICARE ==
[~2018-11-28] VITALS: Ht 175.3 cm; Wt 84.4 kg
[~2018-11-28] MED LIST changes: +EPTIFIBATIDE BOLUS 0 ML IV ONE; +HEParin (CATH LAB) 1,000 ML IV ONE; +HEParin (CATH LAB) 2,000 ML IV ONE; +HEParin 1000 UNIT/ML (10ML VIAL) FOR BOLUS ONE; +LIDOCAINE 1% INJ 20 ML 20 ML VIAL ONE; +MIDAZOLAM 5 MG/5 ML (VERSED) VIAL ONE; +NITRO DRIP 25000 MCG/D5W 250 ML IV ONE; +NS (IVPB) 250 ML ONE; +NS IV 1000 ML 1,000 ML IV ONE; +NS IV 1000 ML 1,000 ML ONE; +PROTAMINE 50 MG/5 ML VIAL ONE; +fentaNYL INJECTION 100 MCG/2 ML AMP ONE; +morphine INJ 10 MG/ML 1ML (SYR OR VIAL) IVP ONE; +morphine INJ 10 MG/ML 1ML (SYR OR VIAL) ONE; +niCARdipine 25 MG/10 ML (CARDENE) AMP IV ONE
--- NOTE | 2018-11-28 23:17 | NUR ---
When asked to confirm allergies the patient advises he does not believe he is allergic to nitro and was administered the medication via EMS without incident.
--- NOTE | 2018-11-28 23:20 | NUR ---
cleaning supervisor notified to call in the solder making laborer crew.
--- NOTE | 2018-11-28 23:30 | NUR ---
Dr. Miranda at the bedside assessing the patient.
[2018-11-28 23:33] LABS: BASOPHILS # (AUTO) 0.1 10^3/uL (0.0-0.1); BASOPHILS % (AUTO) 0 % (0-10); EOSINOPHILS # (AUTO) 0.4 10^3/uL (0.0-0.3); EOSINOPHILS % (AUTO) 3 % (0-10); HEMATOCRIT 37 % (40-54); HEMOGLOBIN 13.3 G/DL (13.3-17.7); LYMPHOCYTES # (AUTO) 4.5 X 10^3 (1.0-4.0); LYMPHOCYTES % (AUTO) 29 % (12-44); MEAN CORPUSCULAR HEMOGLOBIN 35 PG (25-34); MEAN CORPUSCULAR HGB CONC 36 G/DL (32-36); MEAN CORPUSCULAR VOLUME 97 FL (80-99); MEAN PLATELET VOLUME 9.7 FL (7.4-10.4); MONOCYTES # (AUTO) 1.2 X 10^3 (0.0-1.0); MONOCYTES % (AUTO) 8 % (0-12); NEUTROPHILS # (AUTO) 9.5 X 10^3 (1.8-7.8); NEUTROPHILS % (AUTO) 61 % (42-75); PLATELET COUNT 284 10^3/uL (130-400); RED CELL DISTRIBUTION WIDTH 13.3 % (10.0-14.5); WHITE BLOOD COUNT 15.6 10^3/uL (4.3-11.0)
[2018-11-28 23:38] VITALS: BP 130/65
--- NOTE | 2018-11-28 23:39 | ED Chest Pain ---
General Chief Complaint: Chest Pain Stated Complaint: CP Nursing Triage Note: Patient advises he was sitting at home watching television at approximately 10pm when he began experiencing chest pain. Patient denies shortness of breath rating his pain at a 9/10. Patient was administered 324mg asa, 1 nitro tab and, 1in nitro paste per EMS prior to arrival. Nursing Sepsis Screen: No Definite Risk Source: patient, EMS History of Present Illness Date Seen by Provider: Nov 28, 2018 Time Seen by Provider: 23:14 Initial Comments PT ARRIVES VIA EMS FROM HOME C/O MID CHEST PAIN THAT BEGAN AROUND 2200 TONIGHT, WHILE SITTING AND WATCHING TV NO RADIATION OF PAIN NOTHING WORSENS OR IMPROVES PAIN NO SHORTNESS OF BREATH NO SWEATS NO NAUSEA/VOMITING NO PALPITATIONS NO DIZZINESS NO CHANGES IN CHRONIC LEG SWELLING RATES PAIN 9/10 AT WORST EMS GAVE ASPIRIN AND NTG X 1, WITH SOME RELIEF, SO NITROPASTE WAS PLACED BY EMS PT RATES PAIN 5/10 NOW HAS HISTORY OF CAD, AND HAS HAD 5 VESSEL CABG, STENTS X 2 PLUS ANGIOPLASTIES, PER PT PT ALSO HAS HISTORY OF ATRIAL FIBRILLATION, AND IS ON PLAVIX AND ASPIRIN--REPORTED TO DR. VYAS THAT HE STOPPED HIS PLAVIX AND ASPIRIN LAST WEEK, HE IS SUPPOSED TO HAVE BACK SURGERY NEXT WEEK--DID NOT MENTION THIS TO ME LAST CATH 03/2018--MULTIPLE OCCLUDED VESSELS, BUT PATENT STENTS, AND LEFT MAIN ARTERY WAS WITHOUT SIGNIFICANT DISEASE--NO INTERVENTION DONE AT THAT TIME PT WAS SEEN HERE 11/20/18 AFTER A NEAR SYNCOPAL EPISODE AND FALLING, PT WAS DX WITH SUBDURAL AND SUBARACHNOID BLEED AND WAS TRANSFERRED TO [facility]. PT STATES THEY DETERMINED THAT THOSE WERE OLD AND NO SURGERY OR INTERVENTION WAS DONE PCP: DR. Corry DAVIDSON DRUPAL PROGRAMMER: DR. AMAYA Allergies and Home Medications Allergies Coded Allergies: Penicillins (Verified Allergy, Unknown, 11/20/18) nitroglycerin (Verified Allergy, Unknown, 11/20/18) Home Medications Acetaminophen 500 Mg Tablet, 1,000 MG PO Q6H PRN for PAIN-MILD, (Reported) Amlodipine Besylate 5 Mg Tablet, 5 MG PO DAILY, (Reported) Aspirin 81 Mg Tablet.dr 81 MG PO HS, (Reported) Atorvastatin Calcium 40 Mg Tablet, 40 MG PO HS Prescribed by: SHANT KIRBY on 05/24/17 0929 Clopidogrel Bisulfate 75 Mg Tablet, 75 MG PO DAILY, (Reported) Enalapril Maleate 10 Mg Tablet, 10 MG PO BID, (Reported) Fish Oil/Dha/Epa 1 Each Capsule, 1,200 MG PO BID, (Reported) Isosorbide Mononitrate 120 Mg Tab.er.24h, 120 MG PO DAILY, (Reported) Magnesium Oxide 400 Mg Tablet, 400 MG PO BID Prescribed by: JUMANA CABAN on 01/02/18 1122 Metformin HCl 500 Mg Tablet, 500 MG PO BID, (Reported) Metoprolol Tartrate 100 Mg Tablet, 100 MG PO BID, (Reported) Multivits,Ca,Min/Iron/FA/Lycop 1 Each Tablet, 1 TAB PO DAILY, (Reported) Omeprazole 20 Mg Capsule.dr, 20 MG PO BID, (Reported) Patient Home Medication List Home Medication List Reviewed: Yes Review of Systems Review of Systems Constitutional: no symptoms reported; No diaphoresis, No dizziness Respiratory: No Symptoms Reported; Denies Shortness of Air Cardiovascular: See HPI, Chest Pain, Edema; Denies Lightheadedness, Denies Palpitations, Denies Syncope Gastrointestinal: No Symptoms Reported; Denies Abdominal Pain, Denies Nausea, Denies Vomiting Genitourinary: No Symptoms Reported Musculoskeletal: no symptoms reported; No back pain Skin: no symptoms reported Psychiatric/Neurological: No Symptoms Reported Endocrine: No Symptoms Reported Hematologic/Lymphatic: No Symptoms Reported Past [id number] Hx Patient Social History Alcohol Use: Regular Use ("COUPLE OF DRINKS" DAILY) Number of Drinks Today: BB Alcohol Beverage of Choice: [place] Recreational Drug Use: No Smoking Status: Current Everyday Smoker Type Used: Cigars, Cigarettes 2nd Hand Smoke Exposure: Yes Recent Foreign Travel: No Contact w/Someone Who Travel: No Recent Infectious Disease Expo: No Recent Hopitalizations: No Immunizations Up To Date Tetanus Booster (TDap): Unknown PED Vaccines UTD: No Date of Pneumonia Vaccine: Apr 25, 2014 Date of Influenza Vaccine: Apr 10, 2018 Seasonal Allergies Seasonal Allergies: No Past Medical History Surgeries: Yes (CARDIAC CATHS X 4 WITH STENTS X 2 , ANGIOPLASTIES AND 5 VESSEL CABG) Cardiac, CABG, Coronary Stent, Gallbladder Respiratory: Yes COPD Currently Using CPAP: No Currently Using BIPAP: No Cardiac: Yes Angina, Chronic Edema/Swelling, Coronary Artery Disease, Heart Attack, High Cholesterol, Hypertension Neurological: Yes (SUBDURAL AND SUBARACHNOID BLEEDIN 11/20/18) Reproductive Disorders: No Sexually Transmitted Disease: No HIV/AIDS: No Genitourinary: No Gastrointestinal: Yes Gastroesophageal Reflux Musculoskeletal: Yes Chronic Back Pain Endocrine: Yes Diabetes, Non-Insulin dep HEENT: Yes Cataract Loss of Vision: Denies Hearing Impairment: Denies Cancer: No Psychosocial: No Integumentary: No Blood Disorders: No Adverse Reaction/Blood Tranf: No Family Medical History FH: COPD (chronic obstructive pulmonary disease) 19 FATHER Myocardial infarction 19 MOTHER Physical Exam Vital Signs Vital Signs - First Documented Capillary Refill : Less Than 3 Seconds Height, Weight, BMI Height: 5'9.00" Weight: 186lbs. 8.0oz. 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 Norm as Tested, Other (SOMEWHAT FLAT AFFECT, DOES NOT APPEAR TO BE IN ANY DISCOMFORT) Skin: Warm/Dry, Pallor Progress/Results/Core Measures Results/Orders Lab Results Laboratory Tests Test 11/28/18 23:20 Range/Units White Blood Count 15.6 H 4.3-11.0 10^3/uL Red Blood Count 3.82 L 4.35-5.85 10^6/uL Hemoglobin 13.3 13.3-17.7 G/DL Hematocrit 37 L 40-54 % Mean Corpuscular Volume 97 80-99 FL Mean Corpuscular Hemoglobin 35 H 25-34 PG Mean Corpuscular Hemoglobin Concent 36 32-36 G/DL Red Cell Distribution Width 13.3 10.0-14.5 % Platelet Count 284 130-400 10^3/uL Mean Platelet Volume 9.7 7.4-10.4 FL Neutrophils (%) (Auto) 61 42-75 % Lymphocytes (%) (Auto) 29 12-44 % Monocytes (%) (Auto) 8 0-12 % Eosinophils (%) (Auto) 3 0-10 % Basophils (%) (Auto) 0 0-10 % Neutrophils # (Auto) 9.5 H 1.8-7.8 X 10^3 Lymphocytes # (Auto) 4.5 H 1.0-4.0 X 10^3 Monocytes # (Auto) 1.2 H 0.0-1.0 X 10^3 Eosinophils # (Auto) 0.4 H 0.0-0.3 10^3/uL Basophils # (Auto) 0.1 0.0-0.1 10^3/uL Neutrophils % (Manual) 64 % Lymphocytes % (Manual) 26 % Monocytes % (Manual) 6 % Eosinophils % (Manual) 4 % Blood Morphology Comment NORMAL Prothrombin Time 13.2 12.2-14.7 SEC INR Comment 1.0 0.8-1.4 Activated Partial Thromboplast Time 27 24-35 SEC Sodium Level 138 135-145 MMOL/L Potassium Level 4.0 3.6-5.0 MMOL/L Chloride Level 102 98-107 MMOL/L Carbon Dioxide Level 16 L 21-32 MMOL/L Anion Gap 20 H 5-14 MMOL/L Blood Urea Nitrogen 14 7-18 MG/DL Creatinine 1.39 H 0.60-1.30 MG/DL Estimat Glomerular Filtration Rate 50 BUN/Creatinine Ratio 10 Glucose Level 174 H 70-105 MG/DL Calcium Level 9.1 8.5-10.1 MG/DL Corrected Calcium 9.1 8.5-10.1 MG/DL Magnesium Level 1.7 L 1.8-2.4 MG/DL Total Bilirubin 0.6 0.1-1.0 MG/DL Aspartate Amino Transf (AST/SGOT) 28 5-34 U/L Alanine Aminotransferase (ALT/SGPT) 23 0-55 U/L Alkaline Phosphatase 63 40-136 U/L Total Creatine Kinase 44 30-200 U/L Creatine Kinase MB 1.3 <6.6 NG/ML Myoglobin 46.1 10.0-92.0 NG/ML Troponin I < 0.028 <0.028 NG/ML B-Type Natriuretic Peptide 220.9 H <100.0 PG/ML Total Protein 7.2 6.4-8.2 GM/DL Albumin 4.0 3.2-4.5 GM/DL Amylase Level 52 25-125 U/L Lipase 36 8-78 U/L Serum Alcohol 132 H <10 MG/DL My Orders Orders - ARSH,JUMANA [place] DO Ns Iv 1000 Ml (Sodium Chloride 0.9%) (11/28/18 23:15) Alcohol (11/28/18 23:27) I-Stat Bedside Testing (11/28/18:) Cbc With Automated Diff (11/28/18:27) Magnesium (11/28/18:) Chest 1 View, Ap/Pa Only (11/28/18:) Ekg Tracing (11/28/18:) Cardiac Profile 1 (11/28/18:) Comprehensive Metabolic Panel (11/28/18:) Myoglobin Serum (11/28/18:) Protime With Inr (11/28/18:) Partial Thromboplastin Time (11/28/18:) O2 (11/28/18:) Monitor-Rhythm Ecg Trace Only (11/28/18:) Ed Iv/Invasive Line Start (11/28/18:27) Creatine Kinase (11/28/18:27) Creatine Kinase Mb (11/28/18:27) Lipase (11/28/18:) Amylase (11/28/18:) BNP (11/28/18:) Ed Iv/Invasive Line Start (11/28/18 23:30) Ns Iv 1000 Ml (Sodium Chloride 0.9%) (11/28/18 23:30) Morphine Injection (Morphine Injection (11/28/18 23:30) Manual Differential (11/28/18 23:20) Medications Given in ED Current Medications Medications Dose Ordered Sig/Denise Route Start Time Stop Time Status Last Admin Dose Admin Morphine Sulfate 4 mg ONCE ONCE IVP 11/28/18 23:30 11/28/18 23:31 UNV 11/28/18 23:34 4 MG Sodium Chloride 1,000 ml @ 0 mls/hr Q0M ONCE IV 11/28/18 23:30 11/28/18 23:31 UNV 11/28/18 23:33 0 MLS/HR Vital Signs/I&O 11/28/18 11/28/18 11/28/18 23:17 23:17 23:17 Temp 96.0 Pulse 52 Resp 18 B/P (MAP) 98/63 (75) Pulse Ox 94 94 O2 Delivery Room Air Room Air Room Air Blood Pressure Mean: 75 Progress Progress Note : Progress Note NO DETERIORATION IN PT'S CONDITION DURING ER STAY Initial ECG Impression Date: Nov 28, 2018 Initial ECG Impression Time: 23:17 Initial ECG Rate: 83 Initial ECG Rhythm: Normal Sinus Initial ECG Impression: Acute AK (INFERIOR AND ANTERIOR) Diagnostic Imaging Comments CXR--CARDIOMEGALY, CHF, PENDING RADIOLOGIST REVIEW Reviewed: Reviewed by Me Departure Communication (Admissions) [id number]--CALLED DR. VYAS, INFORMED OF STEMI. 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 VYAS HERE, CARE TURNED OVER TO HIM. HE DOES NOT ADVISE ANY MEDICATIONS AT THIS TIME. 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 Referrals: HOLGER DAVIDSON MD (PCP/Family) Primary Care Physician JUMANA CABAN DO Nov 28, 2018 23:39
--- NOTE | 2018-11-28 23:40 | Cardiology History & Physical ---
HPI-Cardiology Cardiology Consultation Date of Consultation 11/28/18 Date of Admission Time Seen by Provider: 23:40 Indication: acute myocardial infarction HPI 77 years old gentleman with extensive coronary artery disease, history of CABG, multiple intervention the past. He sustained a fall on November 20, 2018 resulted in intracranial bleed, was doing well until this evening when he had a sudden onset of chest pain described it as heaviness in the retrosternal area with shortness of breath and diaphoresis, noted to have diffuse ST elevation on arrival to the emergency room and given nitroglycerin with mild relief, still having active pain. No palpitation. No syncope. Patient has stopped taking aspirin and Plavix in preparation for back surgery next week. PMH-Cardiology Immunizations Up To Date Tetanus Booster (DTap): Unknown Date of Pneumonia Vaccine: Apr 25, 2014 Date of Influenza Vaccine: Apr 10, 2018 Seasonal Allergies Seasonal Allergies: No Surgeries Yes (CARDIAC CATHS X 4 WITH STENTS X 2, ANGIOPLASTIES AND 5 VESSEL CABG) Respiratory Yes Cardiovascular Yes Heart Attack, High Cholesterol, Hypertension, Coronary Artery Disease Neurological No Reproductive System Hx Reproductive Disorders: No Sexually Transmitted Disease: No HIV/AIDS: No Genitourinary No Gastrointestinal Yes Gastroesophageal Reflux Musculoskeletal No Endocrine Yes Diabetes, Non-Insulin dep HEENT Yes Cataract Loss of Vision: Denies Hearing Impairment: Denies Cancer No Psychosocial No Integumentary No Blood Transfusions No Adverse Rxn to Transfusion: No Social History Patient Social History Employed/Student: retired Alcohol Use: Occasionally Uses Recreational Drug Use: No Dip or chew tobacco?: No Recent Foreign Travel: No Contact w/other who traveled: No Recent Infectious Disease Expo: No Family Hx Family History: FH: COPD (chronic obstructive pulmonary disease) 19 FATHER Myocardial infarction 19 MOTHER ROS-Cardiology Review of Systems General: No Chills, No Night Sweats; Fatigue, Malaise; No Appetite HEENT: No Head Aches, No Visual Changes, No Eye Pain, No Ear Pain, No Dysphasia, No Sinus Congestion, No Post Nasal Drip, No Sore Throat Pulmonary: Dyspnea; No Cough, No Pleuritic Chest Pain Cardiovascular: Chest Pain; No: Palpitations, Orthopnea, Paroxysmal Noc. Dyspnea, Edema, Lt Headedness Gastrointestinal: No: Nausea, Vomiting, Abdominal Pain, Diarrhea, Constipation, Melena, Hematochezia Genitourinary: No Dysuria, No Frequency, No Incontinence, No Hematuria, No Retention Musculoskeletal: No: neck pain, shoulder pain, arm pain, back pain, hand pain, leg pain, foot pain Neurological: No: Weakness, Numbness, Incoordination, Change in speech, Confusion, Seizures Home Medications & Allergies Allergies: Coded Allergies: Penicillins (Verified Allergy, Unknown, 11/20/18) nitroglycerin (Verified Allergy, Unknown, 11/20/18) Home Medication List Reviewed: Yes Exam-Cardiology Vital Signs Vital Signs Date Time Temp Pulse Resp B/P (MAP) Pulse Ox O2 Delivery O2 Flow Rate FiO2 11/28/18 23:58 68 14 116/62 (80) 99 Room Air 11/28/18 23:17 96.0 Exam General Appearance: Alert, Oriented X3, Cooperative, No Acute Distress HEENT: Atraumatic, PERRLA Respiratory: Clear to Auscultation, Normal Air Movement Cardiovascular: Normal S1, Normal S2, Other (S3, systolic murmur at the left sternal border) Abdominal: Normal Bowel Sounds, Soft, No Tenderness, No Hepatosplenomegaly, No Masses Extremities: No Clubbing, No Cyanosis, No Edema, Normal Pulses, No Tenderness/Swelling Skin: No Rashes, No Breakdown, No Significant Lesion Neuro: Normal Gait, Normal Speech, Strength at 5/5 X4 Ext, Normal Tone, Sensation Intact Psych/Mental Status: Mental Status NL, Mood NL Results Labs Labs Laboratory Tests 11/28/18 23:20: White Blood Count 15.6H, Red Blood Count 3.82L, Hemoglobin 13.3, Hematocrit 37L, Mean Corpuscular Volume 97, Mean Corpuscular Hemoglobin 35H, Mean Corpuscular Hemoglobin Concent 36, Red Cell Distribution Width 13.3, Platelet Count 284, Mean Platelet Volume 9.7, Neutrophils (%) (Auto) 61, Lymphocytes (%) (Auto) 29, Monocytes (%) (Auto) 8, Eosinophils (%) (Auto) 3, Basophils (%) (Auto) 0, Neutrophils # (Auto) 9.5H, Lymphocytes # (Auto) 4.5H, Monocytes # (Auto) 1.2H, Eosinophils # (Auto) 0.4H, Basophils # (Auto) 0.1, Neutrophils % (Manual) 64, Lymphocytes % (Manual) 26, Monocytes % (Manual) 6, Eosinophils % (Manual) 4, Blood Morphology Comment NORMAL, Prothrombin Time 13.2, INR Comment 1.0, Activated Partial Thromboplast Time 27, Sodium Level 138, Potassium Level 4.0, Chloride Level 102, Carbon Dioxide Level 16L, Anion Gap 20H, Blood Urea Nitrogen 14, Creatinine 1.39H, Estimat Glomerular Filtration Rate 50, BUN/Creatinine Ratio 10, Glucose Level 174H, Calcium Level 9.1, Corrected Calcium 9.1, Magnesium Level 1.7L, Total Bilirubin 0.6, Aspartate Amino Transf (AST/SGOT) 28, Alanine Aminotransferase (ALT/SGPT) 23, Alkaline Phosphatase 63, Total Creatine Kinase 44, Creatine Kinase MB 1.3, Myoglobin 46.1, Troponin I < 0.028, B-Type Natriuretic Peptide 220.9H, Total Protein 7.2, Albumin 4.0, Amylase Level 52, Lipase 36, Serum Alcohol 132H A/P-Cardiology Admission Diagnosis Acute myocardial infarction Coronary artery disease Hypertension Hyperlipidemia Admission Status: Inpatient Order (span 2 midnights) Reason for Inpatient Admission: acute myocardial infarction Assessment/Plan Acute ST elevation myocardial infarction, patient had extensive cardiac history as described below. Planning to proceed with emergency cardiac catheterization, patient poses significant difficulty in management due to the recent head trauma and reported intracranial bleed occurred on November 20, 2018. Patient has stopped taking aspirin and Plavix in preparation for back surgery next week Coronary artery disease, history of CABG using HUBBARD to LAD, vein graft to the right coronary artery, vein graft to the diagonal artery, vein graft to the first obtuse marginal branch and vein graft to the second obtuse marginal branch done in 1999, stenting of the proximal circumflex artery in November 2016, cardiac catheterization in April 2017 showed 2 of the 4 vein grafts are occluded, the vein graft to the obtuse marginal branch is patent, another vein graft to the posterior descending branch of the right coronary artery has 90 percent stenosis at the insertion point, another cardiac catheterization August 2017 resulted in stenting with a science 2.5 time 18 mm stent to the vein graft to the right posterior descending artery, complicated by slow flow. Recent intracranial bleed secondary to head trauma after a fall on November 20, 2018 Hypertension, borderline hypotensive at this time. Hyperlipidemia treated with statin Diabetes mellitus, followed and managed by primary care physician Dale, still an active smoker and educate on smoking cessation. History of carotid stenosis mild by ultrasound in June 2017 History of elevation in liver enzymes. Chronic renal insufficiency Clinical Quality Measures AMI/AHF: ASA po Prior to arrival: Yes HANS VYAS MD Nov 28, 2018 23:40
[2018-11-28 23:48] LABS: ALANINE AMINOTRANSFERASE 23 U/L (0-55); ALKALINE PHOSPHATASE 63 U/L (40-136); AMYLASE 52 U/L (25-125); BILIRUBIN,TOTAL 0.6 MG/DL (0.1-1.0); BUN/CREATININE RATIO 10; CALCIUM 9.1 MG/DL (8.5-10.1); CARBON DIOXIDE 16 MMOL/L (21-32); CHLORIDE 102 MMOL/L (98-107); CREATINE KINASE 44 U/L (30-200); CREATININE SERUM 1.39 MG/DL (0.60-1.30); GFR ESTIMATED 50; GLUCOSE 174 MG/DL (70-105); LIPASE 36 U/L (8-78); MAGNESIUM 1.7 MG/DL (1.8-2.4); SODIUM 138 MMOL/L (135-145); TOTAL PROTEIN 7.2 GM/DL (6.4-8.2)
[2018-11-28 23:49] LABS: PROTHROMBIN TIME PATIENT 13.2 SEC (12.2-14.7)
[2018-11-28 23:54] LABS: EOSINOPHILS % (MANUAL) 4 %; LYMPHOCYTES % (MANUAL) 26 %; MONOCYTES % (MANUAL) 6 %; NEUTROPHILS % (MANUAL) 64 %; RBC MORPH NORMAL
[2018-11-28 23:56] LABS: CREATINE KINASE MB 1.3 NG/ML (<6.6)
[2018-11-28 23:58] VITALS: BP 116/62
--- NOTE | 2018-11-29 00:08 | Cardiac Procedure Note-CS/ASA ---
Pre-Procedure Note Pre-Op Procedure Note H&P Reviewed The H&P was reviewed, patient examined and no changes noted. Date H&P Reviewed: Nov 29, 2018 Time H&P Reviewed: 00:07 Conscious Sedation Pre-Proced Time 00:07 ASA Score 3 For ASA 3 and 4: Consider anesthesia and medical clearance. Also, for patients with a history of failed moderate sedation consider anesthesia. Airway Lungs Heart ASA score ASA 1: a normal healthy patient ASA 2: a patient with a mild systemic disease (mid diabetes, controlled hypertension, obesity x ASA 3: a patient with a severe systemic disease that limits activity (angina, COPD, prior Myocardial infarction) ASA 4: a patient with an incapacitating disease that is a constant threat to life (CHF, renal failure) ASA 5: a moribund patient not expected to survive 24 hrs. (ruptured aneurysm) ASA 6: a declared brain- patient whose organs are being harvested. For emergent operations, add the letter E after the classification Mallampati Classification Grade 3 Sedation Plan Analgesia, Amnesia, Plan communicated to team members, Discussed options with patient/fam, Discussed risks with patient/fam The patient is an appropriate candidate to undergo the planned procedure, sedation, and anesthesia. The patient immediately re-assessed prior to indication. HANS VYAS MD Nov 29, 2018 00:08
--- NOTE | 2018-11-29 02:06 | Cardiac Cath Report ---
Cardiac Cath Report Physician (s)/Front Elevator Operator (s) Physician HANS VYAS MD Pre-Procedure Diagnosis Pre-Procedure Diagnosis: STEMI Post-Procedure Note Procedure Start Date: Nov 29, 2018 Name of Procedure: Coronary angiogram Bypass graft angiogram Extraction catheter to the vein graft Balloon angioplasty to the vein graft to the right coronary artery Stent to the vein graft to the right coronary artery Findings/Procedure Note PROCEDURE NOTE: 77 years old gentleman with extensive history of coronary artery disease, history of CABG and multiple intervention. He sustained a fall on November 20, 2018 resulted in intracranial and subarachnoid hematoma. Was scheduled for back surgery for next week and he stopped his aspirin and Plavix. Started to have active chest pain this evening and brought for emergency cardiac catheterization from the emergency room. After explaining the procedure to the patient, all pros and cons were explained, all questions were answered. The patient signed the consent and then he was placed on the cardiac catheterization laboratory. Groin was prepped SL fashion local anesthesia was used. Sheath placed in the right femoral artery, Herman left catheter was used accident the left coronary system and angiogram was done. I proceeded with a FL 6 [place] Helenian guide and give the patient 6000 units of heparin, I did not use IIb /IIIa inhibitors due to the recent head trauma and questionable intracranial bleed. At that point I advanced the guide to the vein graft to the right coronary artery that appeared to be occluded and it was open on the angiogram from April 2018. Immediately I advanced a BMW wire I was able to advance it through the occlusion, was unable to advance it distally. At that point I proceeded with advancement of extraction catheter, I was unable to advance to extraction catheter through the guide all the way to the vein graft up in the aortic arch curve it straightened the catheter and I was unable to advance it subsequently I removed that extraction catheter and then I used the BMW wire again advanced to the use 3.0 x 20 mm balloon and did multiple inflation starting at 12:23AM in the vein graft from the distal to the proximal portion without improvement in the blood flow continued to be totally occluded. At that point, I removed the guide and the wire then exchanged the sheath into 7 St Helenian sheath and advanced 7 [place] Helenian FR guide and advanced a BMW on her then advanced extraction catheter 6 St Helenian through the vein graft to the right coronary artery and proceeded with the extraction with 3 passes in that area it was done at 1231 a.m. at that point there was no significant improvement in the flow then I advanced a second wire using whisper extra support advance it through the vein graft and parked distally then advanced 2.5 x 20 balloon and did multiple inflation with subsequent improvement in the blood flow at that point, at the proximal portion of the stent there was significant step up in the vein graft leading to the stent, I exchanged the balloon into a stent using 3.5 x 15 mm Syeda stent and deployed it proximal to the old stent with short area of ov erlap. Angiogram showed significantly better result but I was suspicious of slower flow after deployment of the stent at that point I disengage the wire and the guide and evaluated the other known patent vein graft to the diagonal branch then redirected the guide to the vein graft to the right coronary artery which showed better flow but there was strong suspicion of perforation at the distal vasculature of the huslia right coronary artery at that point I readvanced the BMW wire and put 3.5 balloon in the mid and distal portion insufflated for long period of time up to 5 minutes and patient was given protamine sulfate. After multiple inflation there was improvement in the extravasation of the contrast, there was questionable thrombus in the mid vein graft I decided not to proceed with anticoagulation to avoid any further risk of bleeding. Patient continued to have chest pain. At that point I contacted [facility] and spoke to the cardiothoracic surgeon rn international who accepted the patient but requested that I speak to the senior qa engineer rn international. I discussed the management plan with Dr. Smith who accepted the patient, visited with the and explained the condition to her. At that point we did more than 5 inflation each one was for 5 minutes within the vein graft with no flow during the inflation, postintervention there was still present good flow in the huslia right coronary artery with suspicion of small perforation. Arrangement for air transportation was made. The sheath was sutured in place. Patient is still having stable blood pressure of 127/54. Still having active chest pain. FINDINGS: Hemodynamics Aorta 125/52 mean pressure of 79 ANATOMY: Left Main has moderate disease Left Anterior Descending , is occluded, patient had patent vein graft to the diagonal branch, did not evaluate the HUBBARD on this study Left Circumflex has occluded obtuse marginal branch and known to have occluded vein graft to the first and second obtuse marginal branches, the stent in the proper circumflex is patent Right Coronory Artery is known to be occluded with occluded vein graft to the right coronary artery, complex intervention with multiple catheters and deployment of Syeda 3.5 x 15 mm stent overlapping with an old stent that is 2.25 in the vein graft, door to balloon time 66 minutes, door to extraction catheter 74 minutes, door to establishment of flow flow in the right coronary artery is 87 minutes. Procedure was complicated by perforation and the huslia coronary artery with acute reversal of heparin, ACT after reversal was 135, multiple balloon inflation prolonged up to 5 minutes each inflation with total occlusion of the vein graft. CONCLUSION: 1. Acute myocardial infarction with occlusion of the vein graft to the right coronary artery, complex intervention with multiple balloon inflation then deployment of stent 3.5 x 15 mm overlapping with an old stent of 2.25, complicated by small perforation in the huslia coronary, reversal of the flow. 2. Known to have occluded vein graft to the first and second obtuse marginal branch 3. Patent stent in the proximal circumflex artery 4. Patent vein graft to the diagonal artery DISCUSSION AND RECOMMENDATION: Arrangement for emergency transfer to [facility], patient might require pericardial window. Hospital Course patient was admitted directly from the emergency room for emergency cardiac catheterization, balloon angioplasty and stenting to the vein graft to the right coronary artery was done, there is questionable perforation in the coronaries. Reversal of the anticoagulation and prolonged balloon angioplasty was done with total occlusion of the vein graft during the full balloon inflation 5 minutes at each inflation. Patient continued to be stable. Arrangement to transfer to [facility] was made, I discussed the management plan with the cardiothoracic surgeon in [facility] then with Dr. Smith, they both accepted the patient. Patient will be transported by air. Final diagnoses Acute ST elevation myocardial infarction Coronary artery disease Hypertension Hyperlipidemia Tobaccoism Anesthesia Type: Conscious Sedation Estimated blood loss (mL): 50 ml Contrast Amount: 220 ml Total Radiation Dose: 2851 mGy Post-Procedure Diagnosis Post-operative diagnosis: Acute ST elevation myocardial infarction Coronary artery disease Hypertension Hyperlipidemia Tobaccoism HANS VYAS MD Nov 29, 2018 02:06
--- NOTE | 2018-11-29 05:24 | Diagnostic Imaging Report ---
INDICATION: Chest pain COMPARISON: 11/20/2018 FINDINGS: Single frontal view of the chest demonstrates stable mild to moderate cardiomegaly. There is also mild prominence of the pulmonary vasculature. The lungs are well aerated and clear. No large pleural effusion or pneumothorax is seen. The visualized osseous structures show no acute abnormalities. Sternotomy wires are noted. IMPRESSION: 1. Stable mild/moderate cardiomegaly with mild pulmonary vascular congestion. Dictated by: Dictated on workstation # [id number]
== END | disposition short-term general hospital (02) ==
LOC: EDUNIT# 23:13 → ER 23:14 → CATH 23:33
PROVIDERS: ATTEND Internal Medicine Cardiovascular Disease
DX: I21.11 ST elevation (STEMI) myocardial infarction involving right coronary artery (principal); I25.810 Atherosclerosis of coronary artery bypass graft(s) without angina pectoris; I12.9 Hypertensive chronic kidney disease with stage 1 through stage 4 chronic kidney disease, or unspecified chronic kidney disease; N18.9 Chronic kidney disease, unspecified; E11.9 Type 2 diabetes mellitus without complications; J44.9 Chronic obstructive pulmonary disease, unspecified; K21.9 Gastro-esophageal reflux disease without esophagitis; F17.210 Nicotine dependence, cigarettes, uncomplicated; F10.229 Alcohol dependence with intoxication, unspecified; Z95.1 Presence of aortocoronary bypass graft; Z95.5 Presence of coronary angioplasty implant and graft; Z79.02 Long term (current) use of antithrombotics/antiplatelets; Z79.82 Long term (current) use of aspirin; Z79.84 Long term (current) use of oral hypoglycemic drugs; Z79.899 Other long term (current) drug therapy
CPT/HCPCS: 36415; 71045; 80053; 80320; 82150; 82550; 82553; 83690; 83735; 83874; 83880; 84484; 85007; 85027; 85610; 85730; 93005; 93041; 93455; 96374

== ENCOUNTER 2019-07-09 09:48 | Outpatient (RCR) | payer MEDICARE ==
[~2019-07-09 09:48] MED LIST changes: -EPTIFIBATIDE BOLUS 0 ML IV ONE; -HEParin (CATH LAB) 1,000 ML IV ONE; -HEParin (CATH LAB) 2,000 ML IV ONE; -HEParin 1000 UNIT/ML (10ML VIAL) FOR BOLUS ONE; -LIDOCAINE 1% INJ 20 ML 20 ML VIAL ONE; -MIDAZOLAM 5 MG/5 ML (VERSED) VIAL ONE; -NITRO DRIP 25000 MCG/D5W 250 ML IV ONE; -NS (IVPB) 250 ML ONE; -NS IV 1000 ML 1,000 ML IV ONE; -NS IV 1000 ML 1,000 ML ONE; +OMEP-280 PO; -OMEP20CA12 PO; -PROTAMINE 50 MG/5 ML VIAL ONE; +SIMV40TA25 PO; -SIMV40TA4 PO; -fentaNYL INJECTION 100 MCG/2 ML AMP ONE; -morphine INJ 10 MG/ML 1ML (SYR OR VIAL) IVP ONE; -morphine INJ 10 MG/ML 1ML (SYR OR VIAL) ONE; -niCARdipine 25 MG/10 ML (CARDENE) AMP IV ONE
== END 2019-07-17 | disposition home or self-care (01) ==
LOC: CR 09:48
PROVIDERS: ATTEND Family Medicine
DX: I25.2 Old myocardial infarction (principal); Z95.5 Presence of coronary angioplasty implant and graft
CPT/HCPCS: 93798

== ENCOUNTER 2019-09-08 11:17 | Outpatient (RCR) | payer MEDICARE ==
[~2019-09-08 11:17] MED LIST changes: -OMEP-280 PO; +OMEP20CA18 PO
== END 2019-10-19 | disposition home or self-care (01) ==
LOC: CR 11:17
PROVIDERS: ATTEND Family Medicine
DX: I25.2 Old myocardial infarction (principal); Z95.5 Presence of coronary angioplasty implant and graft
CPT/HCPCS: 93798

== ENCOUNTER → 2020-02-19 | Outpatient (CLI) | payer MEDICARE | LOC: CARD 10:31 | PROVIDERS: ATTEND Internal Medicine Cardiovascular Disease | DX: I50.31 Acute diastolic (congestive) heart failure (principal); E78.5 Hyperlipidemia, unspecified; I25.110 Atherosclerotic heart disease of native coronary artery with unstable angina pectoris; E11.9 Type 2 diabetes mellitus without complications; Z72.0 Tobacco use; I08.3 Combined rheumatic disorders of mitral, aortic and tricuspid valves | CPT/HCPCS: 93306 ==

== ENCOUNTER 2020-02-20 10:28 | Emergency (ER) | payer MEDICARE ==
[~2020-02-20] VITALS: Ht 175 cm; Wt 83.0 kg
--- NOTE | 2020-02-20 11:10 | NUR ---
SEE LIST FOR CURRENT MEDS
[2020-02-20 11:13] LABS: BASOPHILS % (AUTO) 0 % (0-10); EOSINOPHILS # (AUTO) 0.2 10^3/uL (0.0-0.3); EOSINOPHILS % (AUTO) 2 % (0-10); HEMATOCRIT 29 % (40-54); HEMOGLOBIN 9.7 G/DL (13.3-17.7); LYMPHOCYTES # (AUTO) 1.1 X 10^3 (1.0-4.0); LYMPHOCYTES % (AUTO) 12 % (12-44); MEAN CORPUSCULAR HEMOGLOBIN 34 PG (25-34); MEAN CORPUSCULAR HGB CONC 34 G/DL (32-36); MEAN CORPUSCULAR VOLUME 100 FL (80-99); MEAN PLATELET VOLUME 9.3 FL (7.4-10.4); MONOCYTES # (AUTO) 0.7 X 10^3 (0.0-1.0); MONOCYTES % (AUTO) 8 % (0-12); NEUTROPHILS # (AUTO) 7.1 X 10^3 (1.8-7.8); NEUTROPHILS % (AUTO) 78 % (42-75); PLATELET COUNT 270 10^3/uL (130-400); WHITE BLOOD COUNT 9.2 10^3/uL (4.3-11.0)
[2020-02-20] MEDS ORDERED: NS IV 1000 ML 1,000 ML IV SCH (11:15)
[2020-02-20 11:16] LABS: POTASSIUM 6.4 MMOL/L (3.6-5.0)
[2020-02-20 11:17] LABS: CALCIUM 8.5 MG/DL (8.5-10.1)
--- NOTE | 2020-02-20 11:19 | ED General ---
General Chief Complaint: General Problems/Pain Stated Complaint: ABNORMAL LABS Nursing Triage Note: PT AMBULATES TO ROOM 8 PT STATES HAS SOMETHING LOW AND WAS SENT TO ED BY DR VAYS'S OFFICE Nursing Sepsis Screen: No Definite Risk Source of Information: Patient Exam Limitations: No Limitations History of Present Illness Date Seen by Provider: Feb 20, 2020 Time Seen by Provider: 11:15 Initial Comments To ER by a private vehicle with reports of lab abnormalities. He had labs drawn this [place] [facility] [place] [facility] showing an elevated potassium and BUN/creatinine and because of the he states that he was referred to the emergency room. He stopped potassium supplement yesterday. He is on furosemide and metolazone for history of diastolic congestive heart failure (last EF yesterday was 40-45%). He reports some increasing exertional dyspnea over the past month. 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 Timing/Duration: 1-2 Days Severity: Moderate Associated Systoms: Weakness Allergies and Home Medications Allergies Coded Allergies: Penicillins (Verified Allergy, Unknown, 11/20/18) nitroglycerin (Verified Allergy, Unknown, 11/20/18) Home Medications Acetaminophen 500 Mg Tablet, 1,000 MG PO Q6H PRN for PAIN-MILD, (Reported) Amlodipine Besylate 5 Mg Tablet, 5 MG PO DAILY, (Reported) Aspirin 81 Mg Tablet., 81 MG PO HS, (Reported) Atorvastatin Calcium 40 Mg Tablet, 40 MG PO HS Prescribed by: SHANT KIRBY on 05/24/17 0929 Clopidogrel Bisulfate 75 Mg Tablet, 75 MG PO DAILY, (Reported) Enalapril Maleate 10 Mg Tablet, 10 MG PO BID, (Reported) Fish Oil/Dha/Epa 1 Each Capsule, 1,200 MG PO BID, (Reported) Isosorbide Mononitrate 120 Mg Tab.er.24h, 120 MG PO DAILY, (Reported) Magnesium Oxide 400 Mg Tablet, 400 MG PO BID Prescribed by: JUMANA CABAN on 01/02/18 1122 Metformin HCl 500 Mg Tablet, 500 MG PO BID, (Reported) Metoprolol Tartrate 100 Mg Tablet, 100 MG PO BID, (Reported) Multivits,Ca,Min/Iron/FA/Lycop 1 Each Tablet, 1 TAB PO DAILY, (Reported) Omeprazole 20 Mg Capsule., 20 MG PO BID, (Reported) Patient Home Medication List Home Medication List Reviewed: Yes Review of Systems Review of Systems Constitutional: see HPI EENTM: see HPI Respiratory: see HPI, dyspnea on exertion Cardiovascular: no symptoms reported Genitourinary: no symptoms reported Musculoskeletal: see HPI Skin: no symptoms reported Psychiatric/Neurological: No Symptoms Reported Hematologic/Lymphatic: No Symptoms Reported Immunological/Allergic: no symptoms reported Past Dyczagu-Qncnpc-Hjhpag Hx Patient Social History Alcohol Use: Occasionally Uses Alcohol Beverage of Choice: [place] Recreational Drug Use: No Smoking Status: Current Everyday Smoker Type Used: Cigars 2nd Hand Smoke Exposure: Yes Recent Foreign Travel: No Contact w/Someone Who Travel: No Recent Infectious Disease Expo: No Recent Hopitalizations: No Physical Abuse: No Sexual Abuse: No Immunizations Up To Date Tetanus Booster (TDap): Unknown PED Vaccines UTD: No Date of Pneumonia Vaccine: Apr 25, 2014 Date of Influenza Vaccine: Apr 10, 2018 Seasonal Allergies Seasonal Allergies: No Past Medical History Surgeries: Yes (CARDIAC CATHS X 4 WITH STENTS X 2 , ANGIOPLASTIES AND 5 VESSEL CABG) Cardiac, CABG, Coronary Stent, Gallbladder Respiratory: Yes COPD Currently Using CPAP: No Currently Using BIPAP: No Cardiac: Yes (LAST CATH 03/2018--NO INTERVENTION) Chronic Edema/Swelling, Coronary Artery Disease, Heart Attack, High Cholesterol, Hypertension Neurological: Yes (SUBDURAL AND SUBARACHNOID BLEEDIN 11/20/18) Reproductive Disorders: No Sexually Transmitted Disease: No HIV/AIDS: No Genitourinary: No Gastrointestinal: Yes Gastroesophageal Reflux Musculoskeletal: Yes Chronic Back Pain Endocrine: Yes Diabetes, Non-Insulin dep HEENT: Yes Cataract Loss of Vision: Denies Hearing Impairment: Denies Cancer: No Psychosocial: No Integumentary: No Blood Disorders: No Adverse Reaction/Blood Tranf: No Family Medical History FH: COPD (chronic obstructive pulmonary disease) 19 FATHER Myocardial infarction 19 MOTHER Physical Exam Vital Signs Vital Signs - First Documented 02/20/20 02/20/20 10:30 11:38 Temp 36.3 Pulse 78 Resp 20 B/P (MAP) 131/70 (90) Pulse Ox 98 O2 Delivery Room Air Capillary Refill : Less Than 3 Seconds Height, Weight, BMI Height: 5'9.00" Weight: 186lbs. 8.0oz. 84.636427fl; 27.00 BMI Method:Stated General Appearance: No Apparent Distress, WD/WN, Chronically ill Eyes: Bilateral Eye Normal Inspection, Bilateral Eye PERRL, Bilateral Eye EOMI Neck: Full Range of Motion, Normal Inspection Respiratory: Normal Breath Sounds, No Accessory Muscle Use, No Respiratory Distress Cardiovascular: Regular Rate, Rhythm, Normal Peripheral Pulses Gastrointestinal: Normal Bowel Sounds, Non Tender, Soft Extremity: Normal Capillary Refill, Pedal Edema (3+ BLE) Neurologic/Psychiatric: Alert, Oriented x3 Progress/Results/Core Measures Suspected Sepsis Recent Fever Within 48 Hours: No Infection Criteria Present: None New/Unexplained Altered Menta: No Sepsis Screen: No Definite Risk SIRS Temperature: Pulse: 78 Respiratory Rate: 20 Laboratory Tests 02/20/20 10:45: White Blood Count 9.2 Blood Pressure 131 /70 Mean: 90 Laboratory Tests 02/20/20 10:45: Creatinine 2.40H, Platelet Count 270 Results/Orders Lab Results Laboratory Tests Test 02/20/20 10:45 Range/Units White Blood Count 9.2 4.3-11.0 10^3/uL Red Blood Count 2.85 L 4.35-5.85 10^6/uL Hemoglobin 9.7 L 13.3-17.7 G/DL Hematocrit 29 L 40-54 % Mean Corpuscular Volume 100 H 80-99 FL Mean Corpuscular Hemoglobin 34 25-34 PG Mean Corpuscular Hemoglobin Concent 34 32-36 G/DL Red Cell Distribution Width 14.0 10.0-14.5 % Platelet Count 270 130-400 10^3/uL Mean Platelet Volume 9.3 7.4-10.4 FL Neutrophils (%) (Auto) 78 H 42-75 % Lymphocytes (%) (Auto) 12 12-44 % Monocytes (%) (Auto) 8 0-12 % Eosinophils (%) (Auto) 2 0-10 % Basophils (%) (Auto) 0 0-10 % Neutrophils # (Auto) 7.1 1.8-7.8 X 10^3 Lymphocytes # (Auto) 1.1 1.0-4.0 X 10^3 Monocytes # (Auto) 0.7 0.0-1.0 X 10^3 Eosinophils # (Auto) 0.2 0.0-0.3 10^3/uL Basophils # (Auto) 0.0 0.0-0.1 10^3/uL Sodium Level 129 L 135-145 MMOL/L Potassium Level 6.4 H 3.6-5.0 MMOL/L Chloride Level 100 98-107 MMOL/L Carbon Dioxide Level 15 L 21-32 MMOL/L Anion Gap 14 5-14 MMOL/L Blood Urea Nitrogen 30 H 7-18 MG/DL Creatinine 2.40 H 0.60-1.30 MG/DL Estimat Glomerular Filtration Rate 26 BUN/Creatinine Ratio 13 Glucose Level 85 70-105 MG/DL Calcium Level 8.5 8.5-10.1 MG/DL My Orders Orders - FELICITY GAVIRIA APRN Ekg Tracing (02/20/20 11:02) Continuous Ekg Monitoring (02/20/20 11:02) Cbc With Automated Diff (02/20/20 11:02) Basic Metabolic Panel (02/20/20 11:02) Ed Iv/Invasive Line Start (02/20/20 11:02) Chest 1 View, Ap/Pa Only (02/20/20 11:02) Ns Iv 1000 Ml (Sodium Chloride 0.9%) (02/20/20 11:15) D50w (Emergency) Syringe (Dextrose 50% 5 (02/20/20 11:30) Insulin (Regular) Human (Novolin R (Per (02/20/20 11:30) Albuterol Pre-Mix Nebs (Rt) (Proventil (02/20/20 11:30) Svn Small Volume Nebulizer (02/20/20 11:25) Calcium Gluconate 10% Inj (Calcium Glu (02/20/20 11:45) Sodium Bicarbonate 8.4% Vial (Sodium Bic (02/20/20 11:45) Sodium Polystyrene Sulfonate (Kayexalate (02/20/20 12:15) Antacid Suspension (Mylanta Suspension (02/20/20 12:30) Sodium 2g (2000 Mg) (02/20/20 Lunch) Medications Given in ED Current Medications Medications Dose Ordered Sig/Denise Route Start Time Stop Time Status Last Admin Dose Admin Al Hydrox/Mg Hydrox/Simethicone 30 ml ONCE ONCE PO 02/20/20 12:30 02/20/20 12:31 DC 02/20/20 12:29 30 ML Albuterol Sulfate 10 mg ONCE ONCE INH 02/20/20 11:30 02/20/20 11:31 DC 02/20/20 11:36 10 MG Calcium Gluconate 4.65 meq ONCE ONCE IV 02/20/20 11:45 02/20/20 11:46 DC 02/20/20 11:52 4.65 MEQ Dextrose 25 ml ONCE ONCE IV 02/20/20 11:30 02/20/20 11:31 DC 02/20/20 11:52 25 ML Insulin Human Regular 8 unit ONCE ONCE IV 02/20/20 11:30 02/20/20 11:31 DC 02/20/20 11:52 8 UNIT Sodium Bicarbonate 100 meq ONCE ONCE IV 02/20/20 11:45 02/20/20 11:46 DC 02/20/20 11:51 100 MEQ Vital Signs/I&O 02/20/20 02/20/20 10:30 11:38 Temp 36.3 Pulse 78 Resp 20 B/P (MAP) 131/70 (90) Pulse Ox 98 O2 Delivery Room Air Capillary Refill : Less Than 3 Seconds Blood Pressure Mean: 90 Diagnostic Imaging Diagonstic Imaging: Xray Plain Films/CT/US/NM/MRI: chest Comments NAME: SEVERO BELL MED REC#: [id number] PT STATUS: REG ER : 1940 PHYSICIAN: FELICITY GAVIRIA PROCESS ANALYST ADMIT DATE: 02/20/20/ER Draft Date of Exam:02/20/20 CHEST 1 VIEW, AP/PA ONLY INDICATION: Electrolyte abnormality. Time of exam: 11:43 AM Correlation is made with prior chest from 11/28/2018. The heart is enlarged but stable. There are changes of median sternotomy and CABG. There are some mild interstitial changes which are likely chronic. No parenchymal consolidation is seen. There is no effusion or pneumothorax. IMPRESSION: Cardiomegaly and status post CABG. No acute feature is detected. Dictated on workstation # [id number] Dict: 02/20/20 1155 Trans: 02/20/20 1158 SCOTTY [id number] Interpreted by: PHAN RIGGINS MD Electronically signed by: Departure Communication (Admissions) 1158-spoke with Dr Carmen from cardiology and Dr. Beard from critical care both of whom recommend transfer to facility with Dialysis capability if the patient would do dialysis if it came to that. I discussed with the patient that it may require dialysis, he states that he would want that done if it were necessary. As such we'll transfer him to a facility with hemodialysis capabilities. His EKG is very similar to previous, looks to be sinus though the machine read it as an accelerated junctional rhythm. However I think the P wave is very low amplitude, an early Ekg change of hyperkalemia. 1235-I called [facility] in [place] who is on ICU diversion. I called [facility] in [place] also on ICU diversion. I called [facility] on the plasma and [facility] in [place], also on ICU/telemetry diversion. Spoke with [facility] in [place] who does have a bed and Dr. Darnell has accepted Impression Primary Impression: Hyperkalemia Additional Impressions: DM (acute kidney injury) CHF (congestive heart failure) Disposition: 02 XFER SHT-TRM HOSP Condition: Stable Transfer Transfer Reason: Exceeds level of care Time Spoke to Accepting Phy: 12:38 Departure-Patient Inst. Referrals: HOLGER DAVIDSON MD (PCP/Family) Primary Care Physician FELICITY GAVIRIA APRN Feb 20, 2020 11:19
[2020-02-20 11:21] LABS: CREATININE SERUM 2.4 MG/DL (0.60-1.30)
[2020-02-20] MEDS ORDERED: RT-ALBUTEROL SULF 2.5 MG/3 ML PRE-MIX VIAL INH ONE (11:30)
[2020-02-20] MEDS ORDERED: inSUlin (REGULAR) HUMAN 1 UNIT/0.01 ML (CHARGE PER UNIT) IV ONE (11:30)
[2020-02-20] MEDS ORDERED: DEXTROSE 50% 50 ML (IMS) SYR IV ONE (11:30)
[2020-02-20] MEDS ORDERED: CALCIUM GLUC. 10% 4.65 MEQ/10 ML VIAL IV ONE (11:45)
[2020-02-20] MEDS ORDERED: SOD POLYSTYRENE 30 GM/120 ML (KAYEXALATE) BULK BOTTLE PR ONE (11:45)
[2020-02-20] MEDS ORDERED: SODIUM BICARB 8.4% 50 MEQ/50 ML VIAL IV ONE (11:45)
--- NOTE | 2020-02-20 11:58 | Diagnostic Imaging Report ---
INDICATION: Electrolyte abnormality. Time of exam: 11:43 AM Correlation is made with prior chest from 11/28/2018. The heart is enlarged but stable. There are changes of median sternotomy and CABG. There are some mild interstitial changes which are likely chronic. No parenchymal consolidation is seen. There is no effusion or pneumothorax. IMPRESSION: Cardiomegaly and status post CABG. No acute feature is detected. Dictated by: Dictated on workstation # [id number]
[2020-02-20] MEDS ORDERED: SOD POLYSTERENE 15 GM/60 ML (KAYEXALATE) UNIT DOSE PR ONE (12:15)
[2020-02-20] MEDS ORDERED: SOD POLYSTERENE 15 GM/60 ML (KAYEXALATE) UNIT DOSE PO ONE (12:15)
[2020-02-20] MEDS ORDERED: ANTACID SUSP 30 ML UDC (MYLANTA) PO ONE (12:30)
[2020-02-20] MEDS ORDERED: LIDOCAINE 2% VISCOUS 15 ML UDC PO ONE (13:00)
--- NOTE | 2020-02-20 13:20 | Consultation-Cardiology ---
HPI-Cardiology Cardiology Consultation: Date of Consultation 02/20/20 Date of Admission Attending Physician Admitting Physician Adan Wright MD Consulting Physician Nila CARMEN MD HPI: Time Seen by a Provider: 12:00 This is a 79-year-old gentleman who follows with Dr. Broderick for coronary artery disease. He presented because abnormal lab values. He presented with hyperkalemia and worsening acute on chronic kidney disease. The patient has solitary kidney. He was previously on potassium supplementation. He has history of systolic congestive heart failure with an EF of 40-45 percent. He was on diuretics. Worsening shortness of breath. Does not follow nephrology. Denies active smoking. Negative pertinent family history. Review of Systems-Cardiology Review of Systems Constitutional: As described under HPI; No As described under HPI, No no symptoms reported, No chills, No fever, No lightheadedness Eyes: No As described under HPI, No no symptoms reported, No blindness, No blurred vision, No contact lenses, No drainage, No decreased acuity, No foreign body sensation, No pain, No vision change Ears/Nose/Throat: No As described under HPI, No no symptoms reported, No chronic hearing loss, No ear discharge, No ear pain, No nasal drainage, No ulcerations Respiratory: No no symptoms reported; As described under HPI; No As described under HPI, No cough, No orthopnea, No shortness of breath, No SOB with excertion Cardiovascular: No no symptoms reported; As described under HPI; No As described under HPI, No chest pain, No edema, No irregular heart rate, No lightheadedness, No palpitations Gastrointestinal: No no symptoms reported, No As described under HPI, No abdomen distended, No abdominal pain, No blood streaked bowels, No constipation, No diarrhea, No nausea, No vomiting, No stool coloration changes Genitourinary: No As described under HPI, No burning, No dysuria, No discharge, No frequency, No flank pain, No hematuria, No urgency Skin: No rash, No skin related problems, No ulcerations Psychiatric/Neurological: No anxiety, No depression, No seizure, No focal weakness, No syncope Hematologic: No bleeding abnormalities YJC-Pnqwhk-Avhwvy Hx Patient Social History Alcohol Use: Occasionally Uses Recreational Drug Use: No Smoking Status: Current Everyday Smoker Type Used: Cigars 2nd Hand Smoke Exposure: Yes Recent Foreign Travel: No Recent Infectious Disease Expo: No Hospitalization with Isolation: Denies Immunizations Up To Date Tetanus Booster (TDap): Unknown Date of Pneumonia Vaccine: Apr 25, 2014 Date of Influenza Vaccine: Apr 10, 2018 Past Medical History PMH As described under Assessment. Family Medical History Family Medical History: Family h/o CAD and CVA in his mother and father No premature CAD or SCD Family History: FH: COPD (chronic obstructive pulmonary disease) 19 FATHER Myocardial infarction 19 MOTHER Allergies and Home Medications Allergies Coded Allergies: Penicillins (Verified Allergy, Unknown, 11/20/18) nitroglycerin (Verified Allergy, Unknown, 11/20/18) Home Medications Acetaminophen 500 Mg Tablet, 1,000 MG PO Q6H PRN for PAIN-MILD, (Reported) Amlodipine Besylate 5 Mg Tablet, 5 MG PO DAILY, (Reported) Aspirin 81 Mg Tablet.dr, 81 MG PO HS, (Reported) Atorvastatin Calcium 40 Mg Tablet, 40 MG PO HS Prescribed by: SHANT KIRBY on 05/24/17 0929 Clopidogrel Bisulfate 75 Mg Tablet, 75 MG PO DAILY, (Reported) Enalapril Maleate 10 Mg Tablet, 10 MG PO BID, (Reported) Fish Oil/Dha/Epa 1 Each Capsule, 1,200 MG PO BID, (Reported) Isosorbide Mononitrate 120 Mg Tab.er.24h, 120 MG PO DAILY, (Reported) Magnesium Oxide 400 Mg Tablet, 400 MG PO BID Prescribed by: JUMANA CABAN on 01/02/18 1122 Metformin HCl 500 Mg Tablet, 500 MG PO BID, (Reported) Metoprolol Tartrate 100 Mg Tablet, 100 MG PO BID, (Reported) Multivits,Ca,Min/Iron/FA/Lycop 1 Each Tablet, 1 TAB PO DAILY, (Reported) Omeprazole 20 Mg Capsule.dr, 20 MG PO BID, (Reported) Patient Home Medication List Home Medication List Reviewed: Yes Physical Exam-Cardiology Physical Exam Vital Signs/I&O 02/20/20 02/20/20 10:30 11:38 Temp 36.3 Pulse 78 Resp 20 B/P (MAP) 131/70 (90) Pulse Ox 98 O2 Delivery Room Air Capillary Refill : Less Than 3 Seconds Constitutional: appears stated age, AAO x 3; No apparent distress; well- developed, well-nourished HEENT: PERRL; No discharge; hearing is well preserved, oral hygience is good; No ulceration, No xanthelasmas are seen Neck: No carotid bruit; carotid pulses are 2 + bilaterally Respiratory: chest is bilaterally symmetric, lungs clear to percussion, lungs clear to auscultation Cardiovascular: regular rate-rhythm, S1 and S2; No diastolic murmur, No systolic murmur Gastrointestinal: soft, audible bowel sounds; No spleenomegaly Rectal: deferred Extremities: normal range of motion, non-tender, normal inspection, pedal edema; No clubbing, No cyanosis, No significant edema Neurologic/Psychiatric: no motor/sensory deficits, alert, normal mood/affect, oriented x 3, power is 5/5 both on sides Skin: normal color, warm/dry; No rash, No ulcerations Data Review Labs Laboratory Tests 02/20/20 10:45: White Blood Count 9.2, Red Blood Count 2.85L, Hemoglobin 9.7L, Hematocrit 29L, Mean Corpuscular Volume 100H, Mean Corpuscular Hemoglobin 34, Mean Corpuscular Hemoglobin Concent 34, Red Cell Distribution Width 14.0, Platelet Count 270, Mean Platelet Volume 9.3, Neutrophils (%) (Auto) 78H, Lymphocytes (%) (Auto) 12, Monocytes (%) (Auto) 8, Eosinophils (%) (Auto) 2, Basophils (%) (Auto) 0, Neutrophils # (Auto) 7.1, Lymphocytes # (Auto) 1.1, Monocytes # (Auto) 0.7, Eosinophils # (Auto) 0.2, Basophils # (Auto) 0.0, Sodium Level 129L, Potassium Level 6.4H, Chloride Level 100, Carbon Dioxide Level 15L, Anion Gap 14, Blood Urea Nitrogen 30H, Creatinine 2.40H, Estimat Glomerular Filtration Rate 26, BUN/Creatinine Ratio 13, Glucose Level 85, Calcium Level 8.5 ECG Impression ECG Comment Junctional rhythm with incomplete left bundle branch block. A/P-Cardiology Assessment/Admission Diagnosis Acute on chronic kidney disease, Chronic systolic congestive heart failure, CAD, CABG, PCI, Hyponatremia, Severe hyperkalemia, Solitary kidney Severe mitral regurgitation, Mild pulmonary hypertension Plan Acute on chronic kidney disease, baseline 1.4. IV fluids. Chronic systolic congestive heart failure, DC diuretics. Not in florid congestive heart failure. Echocardiogram shows an EF of 40-45 percent done recently. CAD, CABG, PCI, continue antiplatelet therapy. No active issues. Hyponatremia, likely due to diuretics. Severe hyperkalemia, potassium supplementations stopped yesterday. Worsening kidney function. EKG shows junctional rhythm, likely due to hyperkalemia. Insulin, bicarbonate, albuterol inhaler, calcium gluconate. May be better to be in a hospital with nephrology services and on site dialysis services. Solitary kidney Severe mitral regurgitation, Mild pulmonary hypertension Thank you for your consultation. Please call me if you have any questions. Ankit Carmen MD, FACP, FACC, FSCAI, FHRS, CCDS Interventional Cardiology Cardiac Electrophysiology Vascular Medicine and Endovascular Interventions Nila CARMEN MD Feb 20, 2020 13:20
[2020-02-20 13:27] VITALS: BP 134/77
--- NOTE | 2020-02-20 13:48 | NUR ---
EMS HERE TO TRANSFER PT
== END 2020-02-20 13:50 | disposition short-term general hospital (02) ==
LOC: EDUNIT# 10:28 → ER 10:29
DX: E87.5 Hyperkalemia (principal); N17.9 Acute kidney failure, unspecified; I11.0 Hypertensive heart disease with heart failure; I50.9 Heart failure, unspecified; I25.10 Atherosclerotic heart disease of native coronary artery without angina pectoris; I25.2 Old myocardial infarction; E78.00 Pure hypercholesterolemia, unspecified; K21.9 Gastro-esophageal reflux disease without esophagitis; E11.9 Type 2 diabetes mellitus without complications; G89.29 Other chronic pain; M54.9 Dorsalgia, unspecified; F17.290 Nicotine dependence, other tobacco product, uncomplicated; Z88.0 Allergy status to penicillin; Z88.8 Allergy status to other drugs, medicaments and biological substances; Z79.82 Long term (current) use of aspirin; Z79.02 Long term (current) use of antithrombotics/antiplatelets; Z79.84 Long term (current) use of oral hypoglycemic drugs; Z95.1 Presence of aortocoronary bypass graft; Z95.5 Presence of coronary angioplasty implant and graft
CPT/HCPCS: 36415; 71045; 80048; 85025; 94640

== ENCOUNTER 2020-03-18 09:59 | Observation (INO) | payer MEDICARE ==
[~2020-03-18] VITALS: Ht 175 cm; Wt 76.2 kg
[2020-03-18] VITALS (7 sets, daily range): BP systolic 136–193; BP diastolic 80–92
[~2020-03-18 09:59] MED LIST changes: -ENAL10TA PO; +ENAL10TA16 PO
[2020-03-18 10:17] LABS: BASOPHILS # (AUTO) 0.1 10^3/uL (0.0-0.1); BASOPHILS % (AUTO) 1 % (0-10); EOSINOPHILS # (AUTO) 0.2 10^3/uL (0.0-0.3); EOSINOPHILS % (AUTO) 3 % (0-10); HEMATOCRIT 31 % (40-54); LYMPHOCYTES # (AUTO) 1.1 10^3/uL (1.0-4.0); LYMPHOCYTES % (AUTO) 14 % (12-44); MEAN CORPUSCULAR HEMOGLOBIN 35 pg (25-34); MEAN CORPUSCULAR HGB CONC 35 g/dL (32-36); MEAN CORPUSCULAR VOLUME 98 fL (80-99); MEAN PLATELET VOLUME 9.3 fL (9.0-12.2); MONOCYTES # (AUTO) 0.8 10^3/uL (0.0-1.0); MONOCYTES % (AUTO) 10 % (0-12); NEUTROPHILS # (AUTO) 5.9 10^3/uL (1.8-7.8); NEUTROPHILS % (AUTO) 73 % (42-75); PLATELET COUNT 298 10^3/uL (130-400); WHITE BLOOD COUNT 8.1 10^3/uL (4.3-11.0)
[2020-03-18 11:09] LABS: ALBUMIN 3.5 GM/DL (3.2-4.5); POTASSIUM 3.5 MMOL/L (3.6-5.0)
[2020-03-18 11:10] LABS: CALCIUM 9.2 MG/DL (8.5-10.1)
--- NOTE | 2020-03-18 11:12 | Diagnostic Imaging Report ---
EXAMINATION: Portable erect AP chest at 1050 indication cough There is shallow inspiration when compared to the prior exam of 02/20/2020. Allowing for this technical factor, the cardiomegaly noted previously is again evident and no different. The sternotomy wires and surgical clips seen on the prior study are unchanged. There are few crowded bronchovascular markings in both infrahilar regions. These are probably related to the shallow degree of inspiration. There is no evidence for failure, pneumonia or for a significant pleural effusion. The mediastinum is not widened. The osseous structures are intact. IMPRESSION: Allowing for the shallow degree of inspiration, there has been no significant change since the prior exam. There is no acute abnormality identified. Dictated by: Dictated on workstation # [id number]
[2020-03-18 11:13] LABS: BILIRUBIN,TOTAL 2.3 MG/DL (0.1-1.0)
[2020-03-18 11:15] LABS: CREATININE SERUM 1.65 MG/DL (0.60-1.30)
[2020-03-18 11:18] LABS: MAGNESIUM 1.8 MG/DL (1.6-2.4)
[2020-03-18 11:29] LABS: TSH (THYROID ANALYZER) 0.85 UIU/ML (0.35-4.94)
--- NOTE | 2020-03-18 12:03 | ED General ---
General Chief Complaint: Abdominal/GI Problems Stated Complaint: WEAKNESS Nursing Triage Note: PT ARRIVED PER EMS, PT CO OF N/V FOR APPROX 4-5 DAYS, STATES UNABLE TO KEEP ANYTHING DOWN, STATES HAS INCREASED WEAKNESS. PT IS A AND O AT THIS X Nursing Sepsis Screen: No Definite Risk Source of Information: Patient, EMS, Old Records Exam Limitations: No Limitations History of Present Illness Date Seen by Provider: Mar 18, 2020 Time Seen by Provider: 10:00 Initial Comments This 79-year-old gentleman presents to the emergency room with primary complaint of generalized weakness. He has also had some nausea and vomiting recently but this is resolved. This is been progressive over the last several days. Patient reports he had been placed on Lasix 80 mg and this has been tapered down in recent days. He is now on 20 mg of Lasix. He reports loss of weight and edema with Lasix use. Patient did not disclose his regular alcohol use to this provider but in conversation with Dr. Holger Davidson it was revealed that he does drink alcohol regularly. Patient states he normally drinks a small amount of bourbon daily and smokes a cigar daily. He reports no alcohol consumption in 3 or 4 days. Patient denied any chest pain, cough, shortness of breath, or fever. EMS reports they assisted him to standing position but he was able to ambulate to their cot without assistance. He has history of significant coronary artery disease with CABG and acute ST [place] after CABG resulting in transfer to [facility]. Allergies and Home Medications Allergies Coded Allergies: Penicillins (Verified Allergy, Unknown, 03/18/20) nitroglycerin (Verified Allergy, Unknown, 03/18/20) Home Medications Acetaminophen 500 Mg Tablet, 1,000 MG PO Q6H PRN for PAIN-MILD, (Reported) Amlodipine Besylate 5 Mg Tablet, 5 MG PO DAILY, (Reported) Aspirin 81 Mg Tablet.dr, 81 MG PO HS, (Reported) Atorvastatin Calcium 40 Mg Tablet, 40 MG PO HS Prescribed by: SHANT KIRBY on 05/24/17 0929 Clopidogrel Bisulfate 75 Mg Tablet, 75 MG PO DAILY, (Reported) Enalapril Maleate 10 Mg Tablet, 10 MG PO BID, (Reported) Fish Oil/Dha/Epa 1 Each Capsule, 1,200 MG PO BID, (Reported) Isosorbide Mononitrate 120 Mg Tab.er.24h, 120 MG PO DAILY, (Reported) Magnesium Oxide 400 Mg Tablet, 400 MG PO BID Prescribed by: JUMANA CABAN on 01/02/18 1122 Metformin HCl 500 Mg Tablet, 500 MG PO BID, (Reported) Metoprolol Tartrate 100 Mg Tablet, 100 MG PO BID, (Reported) Multivits,Ca,Min/Iron/FA/Lycop 1 Each Tablet, 1 TAB PO DAILY, (Reported) Omeprazole 20 Mg Capsule.dr, 20 MG PO BID, (Reported) Patient Home Medication List Home Medication List Reviewed: Yes Review of Systems Review of Systems Constitutional: see HPI, weakness EENTM: no symptoms reported Respiratory: no symptoms reported Cardiovascular: see HPI Gastrointestinal: no symptoms reported Genitourinary: no symptoms reported Musculoskeletal: no symptoms reported Skin: no symptoms reported Psychiatric/Neurological: No Symptoms Reported Hematologic/Lymphatic: No Symptoms Reported Past Mhzxywb-Lkazfs-Wasqmn Hx Past Med/Social Hx: Reviewed Nursing Past Med/Soc Hx Patient Social History Alcohol Use: Occasionally Uses Number of Drinks Today: BB Alcohol Beverage of Choice: [place] Recreational Drug Use: No Smoking Status: Current Everyday Smoker Type Used: Cigars 2nd Hand Smoke Exposure: Yes Recent Foreign Travel: No Contact w/Someone Who Travel: No Recent Infectious Disease Expo: No Recent Hopitalizations: No Physical Abuse: No Sexual Abuse: No Immunizations Up To Date Tetanus Booster (TDap): Unknown PED Vaccines UTD: No Date of Pneumonia Vaccine: Apr 25, 2014 Date of Influenza Vaccine: Apr 10, 2018 Seasonal Allergies Seasonal Allergies: No Past Medical History Surgeries: Yes (CARDIAC CATHS X 4 WITH STENTS X 2 , ANGIOPLASTIES AND 5 VESSEL CABG) Cardiac, CABG, Coronary Stent, Gallbladder Respiratory: Yes COPD Currently Using CPAP: No Currently Using BIPAP: No Cardiac: Yes (STEMI 2018) Chronic Edema/Swelling, Coronary Artery Disease, Heart Attack, High Cholesterol, Hypertension Neurological: Yes (SUBDURAL AND SUBARACHNOID BLEEDIN 11/20/18) Reproductive Disorders: No Sexually Transmitted Disease: No HIV/AIDS: No Genitourinary: No Gastrointestinal: Yes Gastroesophageal Reflux Musculoskeletal: Yes Chronic Back Pain Endocrine: Yes Diabetes, Non-Insulin dep HEENT: Yes Cataract Loss of Vision: Denies Hearing Impairment: Denies Cancer: No Psychosocial: No Integumentary: No Blood Disorders: No Adverse Reaction/Blood Tranf: No Family Medical History FH: COPD (chronic obstructive pulmonary disease) 19 FATHER Myocardial infarction 19 MOTHER Physical Exam Vital Signs Vital Signs - First Documented 03/18/20 03/18/20 10:00 15:00 Temp 36.1 Pulse 64 Resp 18 B/P (MAP) 139/84 (102) Pulse Ox 96 O2 Delivery Room Air Capillary Refill : Less Than 3 Seconds Height, Weight, BMI Height: 5'9.00" Weight: 186lbs. 8.0oz. 84.310921vp; 24.00 BMI Method:Stated General Appearance: No Apparent Distress, WD/WN, Thin HEENT: PERRL/EOMI, Normal ENT Inspection, Other (mucous membranes somewhat pasty) Neck: Normal Inspection Respiratory: Lungs Clear, Normal Breath Sounds, No Accessory Muscle Use, No Respiratory Distress Cardiovascular: No Edema, No Murmur, Irregularly Irregular Gastrointestinal: Normal Bowel Sounds, Non Tender, Soft Extremity: Normal Inspection, No Pedal Edema, Other (skin of the lower extremities appears desiccated as if there was previously edema that has now resolved.) Neurologic/Psychiatric: Alert, Oriented x3, No Motor/Sensory Deficits, Normal Mood/Affect, fisher seal II-XII Norm as Tested Skin: Normal Color, Warm/Dry Progress/Results/Core Measures Suspected Sepsis Recent Fever Within 48 Hours: No Infection Criteria Present: None New/Unexplained Altered Menta: No Sepsis Screen: No Definite Risk SIRS Temperature: Pulse: 64 Respiratory Rate: 18 Laboratory Tests 03/18/20 10:09: White Blood Count 8.1 Blood Pressure 139 /84 Mean: 102 Laboratory Tests 03/18/20 10:09: Platelet Count 298 03/18/20 10:44: Creatinine 1.65H, Total Bilirubin 2.3H Results/Orders Lab Results Laboratory Tests Test 03/18/20 10:09 03/18/20 10:10 03/18/20 10:44 03/18/20 12:12 Range/Units White Blood Count 8.1 4.3-11.0 10^3/uL Red Blood Count 3.19 L 4.30-5.52 10^6/uL Hemoglobin 11.0 L 13.3-17.7 g/dL Hematocrit 31 L 40-54 % Mean Corpuscular Volume 98 80-99 fL Mean Corpuscular Hemoglobin 35 H 25-34 pg Mean Corpuscular Hemoglobin Concent 35 32-36 g/dL Red Cell Distribution Width 14.1 10.0-14.5 % Platelet Count 298 130-400 10^3/uL Mean Platelet Volume 9.3 9.0-12.2 fL Immature Granulocyte % (Auto) 0 % Neutrophils (%) (Auto) 73 42-75 % Lymphocytes (%) (Auto) 14 12-44 % Monocytes (%) (Auto) 10 0-12 % Eosinophils (%) (Auto) 3 0-10 % Basophils (%) (Auto) 1 0-10 % Neutrophils # (Auto) 5.9 1.8-7.8 10^3/uL Lymphocytes # (Auto) 1.1 1.0-4.0 10^3/uL Monocytes # (Auto) 0.8 0.0-1.0 10^3/uL Eosinophils # (Auto) 0.2 0.0-0.3 10^3/uL Basophils # (Auto) 0.1 0.0-0.1 10^3/uL Immature Granulocyte # (Auto) 0.0 0.0-0.1 10^3/uL B-Type Natriuretic Peptide 1676.3 H <100.0 PG/ML Sodium Level 127 L 135-145 MMOL/L Potassium Level 3.5 L 3.6-5.0 MMOL/L Chloride Level 83 L 98-107 MMOL/L Carbon Dioxide Level 30 21-32 MMOL/L Anion Gap 14 5-14 MMOL/L Blood Urea Nitrogen 18 7-18 MG/DL Creatinine 1.65 H 0.60-1.30 MG/DL Estimat Glomerular Filtration Rate 41 BUN/Creatinine Ratio 11 Glucose Level 106 H 70-105 MG/DL Calcium Level 9.2 8.5-10.1 MG/DL Corrected Calcium 9.6 8.5-10.1 MG/DL Magnesium Level 1.8 1.6-2.4 MG/DL Total Bilirubin 2.3 H 0.1-1.0 MG/DL Aspartate Amino Transf (AST/SGOT) 34 5-34 U/L Alanine Aminotransferase (ALT/SGPT) 15 0-55 U/L Alkaline Phosphatase 233 H 40-136 U/L Total Creatine Kinase 70 30-200 U/L Troponin I 0.033 H <0.028 NG/ML C-Reactive Protein High Sensitivity 1.41 H 0.00-0.50 MG/DL Total Protein 7.0 6.4-8.2 GM/DL Albumin 3.5 3.2-4.5 GM/DL TSH [place] Testing 0.85 0.35-4.94 UIU/ML Serum Alcohol < 10 <10 MG/DL Urine Color YELLOW Urine Clarity CLEAR Urine pH 8.5 5-9 Urine Specific [place] 1.010 L 1.016-1.022 Urine Protein 1+ H NEGATIVE Urine Glucose (UA) NEGATIVE NEGATIVE Urine Ketones TRACE H NEGATIVE Urine Nitrite NEGATIVE NEGATIVE Urine Bilirubin 1+ H NEGATIVE Urine Urobilinogen 1.0 < = 1.0 MG/DL Urine Leukocyte Esterase NEGATIVE NEGATIVE Urine RBC (Auto) NEGATIVE NEGATIVE Urine RBC NONE /HPF Urine WBC 5-10 H /HPF Urine Crystals NONE /LPF Urine Amorphous Sediment LARGE VASILE PHOSPHATE H /LPF Urine Bacteria TRACE /HPF Urine Casts NONE /LPF Urine Mucus NEGATIVE /LPF Urine Culture Indicated YES Test 03/18/20 17:01 Range/Units Troponin I 0.030 H <0.028 NG/ML My Orders Orders - KALEB IBARRA MD Cbc With Automated Diff (03/18/20 10:04) Comprehensive Metabolic Panel (03/18/20 10:04) Magnesium (03/18/20 10:04) Thyroid Analyzer (03/18/20 10:04) Ua Culture If Indicated (03/18/20 10:04) Ed Iv/Invasive Line Start (03/18/20 10:04) Creatine Kinase (03/18/20 10:04) BNP (03/18/20 10:24) Troponin I (03/18/20 10:24) Ekg Tracing (03/18/20 10:24) Monitor-Rhythm Ecg Trace Only (03/18/20 10:24) Chest 1 View, Ap/Pa Only (03/18/20 10:52) Hs C Reactive Protein (03/18/20 11:52) Alcohol (03/18/20 11:52) Urine Culture (03/18/20 12:12) Vital Signs/I&O 03/18/20 03/18/20 03/18/20 03/18/20 10:00 13:00 15:00 15:34 Temp 36.1 36.0 Pulse 64 64 68 85 Resp 18 18 16 B/P (MAP) 139/84 (102) 145/78 (102) 193/80 Pulse Ox 96 96 95 O2 Delivery Room Air 03/18/20 16:45 Temp 36.4 Pulse 69 Resp 18 B/P (MAP) 136/92 (107) Pulse Ox 97 O2 Delivery Room Air Capillary Refill : Less Than 3 Seconds Blood Pressure Mean: 102 Progress Note : Time: 12:30 Progress Note Exam and labs show mixed findings. Bibasilar crackles and elevated BNP would suggest heart failure exacerbation. However, he otherwise appears dry with elevated creatinine and shriveled appearing legs. Blood alcohol level was neg ative. Chest x-ray was read as negative for acute pathology. CRP was low. Patient had no complaints and had no nausea or vomiting during the ER stay. There was a very subtle bump in troponin. Case was discussed with Dr. Carmen and Dr. Davidson. We will gently hydrate him with a liter of normal saline. A 2-D echocardiogram will be obtained. He will be admitted for observation. Urinalysis is pending at this time. ECG Initial ECG Impression Date: Mar 18, 2020 Initial ECG Impression Time: 10:28 Initial ECG Rate: 61 Comment Likely sinus arrhythmia me with possible junctional escape. Left bundle branch block which is chronic. No ST elevation or depression. Diagnostic Imaging Diagonstic Imaging: Xray Plain Films/CT/US/NM/MRI: chest Comments Chest x-ray viewed by me and report reviewed. See report below: NAME: SEVERO BELL MED REC#: [id number] PT STATUS: REG ER : 1940 PHYSICIAN: KALEB IBARRA MD ADMIT DATE: 03/18/20/ER Draft * Date of Exam:03/18/20 CHEST 1 VIEW, AP/PA ONLY EXAMINATION: Portable erect AP chest at 1050 indication cough There is shallow inspiration when compared to the prior exam of 02/20/2020. Allowing for this technical factor, the cardiomegaly noted previously is again evident and no different. The sternotomy wires and surgical clips seen on the prior study are unchanged. There are few crowded bronchovascular markings in both infrahilar regions. These are probably related to the shallow degree of inspiration. There is no evidence for failure, pneumonia or for a significant pleural effusion. The mediastinum is not widened. The osseous structures are intact. IMPRESSION: Allowing for the shallow degree of inspiration, there has been no significant change since the prior exam. There is no acute abnormality identified. Dictated on workstation # [id number] Dict: 03/18/20 1105 Trans: 03/18/20 1112 [facility] [id number] Interpreted by: MELINA PARKER MD Departure Communication (Admissions) Time/Spoke to Admitting Phy: 11:55 Dr. Davidson Time/Spoke to Consulting Phy: 12:15 Dr. Carmen Impression Primary Impression: CHF (congestive heart failure) Qualified Codes: I50.9 - Heart failure, unspecified Additional Impressions: Weakness Elevated troponin Hyponatremia Renal insufficiency Disposition: ADMITTED INPATIENT Condition: Stable Admissions Decision to Admit Reason: Admit from ER (General) Decision to Admit/Date: Mar 18, 2020 Time/Decision to Admit Time: 11:55 Departure-Patient Inst. Referrals: HOLGER DAVIDSON MD (PCP/Family) Primary Care Physician KALEB IBARRA MD Mar 18, 2020 12:03
[2020-03-18 12:21] LABS: CLARITY,URINE CLEAR; COLOR,URINE YELLOW; GLUCOSE, URINE (UA) NEGATIVE (NEGATIVE); KETONES,URINE TRACE (NEGATIVE); LEUKOCYTE ESTERASE ,URINE NEGATIVE (NEGATIVE); NITRITE,URINE NEGATIVE (NEGATIVE); PH,URINE 8.5 (5-9); PROTEIN,URINE 1+ (NEGATIVE)
[2020-03-18 12:33] LABS: AMORPHOUS SEDIMENT,UR LARGE AMOR PHOSPHATE /LPF; BACTERIA,URINE TRACE /HPF; BILIRUBIN,URINE 1+ (NEGATIVE)
--- NOTE | 2020-03-18 12:49 | NUR ---
DR AMAYA HERE TO SEE PT
--- NOTE | 2020-03-18 14:32 | NUR ---
REPORT TO FARZANEH ODONNELL
--- NOTE | 2020-03-18 14:45 | NUR ---
SEVERO BELL admitted to room 404-1, with an admitting diagnosis of CHF, on 03/18/20 from ED via CART, accompanied by STAFF. SEVERO BELL introduced to surroundings, call light, bed controls, phone, TV, temperature control, lights, meal times, smoking policy, visitor policy, side rail policy, bathrooms and showers. Patient Rights given to patient in the handbook. SEVERO BELL verbalizes understanding that [facility] is not responsible for the loss or damage to any personal effects or valuables that are kept in the patients posession during their hospitalization. The following Patient Care Plans were discussed with the PT: Discharge Planning, PAIN, AND CHF. SEVERO BELL verbalizes understanding of Interdisciplinary Patient Education. Patient and/or family were informed about the Rapid Response Team and its purpose.
[2020-03-18] MEDS ORDERED: 1/2 NS IV SOLUTION 1,000 ML IV PRN (15:07)
[2020-03-18] MEDS ORDERED: LORazepam INJ 2 MG/ML (ATIVAN) VIAL IM/IV PRN (15:15)
[2020-03-18] MEDS ORDERED: LORazepam INJ 2 MG/ML (ATIVAN) VIAL IV PRN (15:15)
[2020-03-18] MEDS ORDERED: D5 1/2 NS 1000 ML IV SOLUTION 1,000 ML IV PRN (15:15)
[2020-03-18] MEDS ORDERED: ONDANSETRON 4 MG (ZOFRAN) ORAL DISSOLVE TAB SL PRN (15:15)
[2020-03-18] MEDS ORDERED: ONDANSETRON 4 MG/2 ML (SDV) Z0FRAN IV PRN (15:15)
[2020-03-18] MEDS ORDERED: LORazepam 1 MG (ATIVAN) TAB PO PRN (15:15)
[2020-03-18] MEDS ORDERED: CATHETER FLUSH 10 ML SYR IV PRN (15:15)
[2020-03-18] MEDS ORDERED: NS IV 1000 ML 1,000 ML IV ONE (15:15)
--- NOTE | 2020-03-18 15:33 | NUR ---
TELESITTER INITIATED PER PROTOCOL.
--- NOTE | 2020-03-18 15:35 | NUR ---
2D ECHO DONE AT BEDSIDE.
--- NOTE | 2020-03-18 15:39 | Consultation-Cardiology ---
HPI-Cardiology Cardiology Consultation: Date of Consultation 03/18/20 Date of Admission Attending Physician Adan Wright MD Admitting Physician Adan Wright MD Consulting Physician Nila CARMEN MD HPI: Time Seen by a Provider: 14:00 Chief Complaint: Weakness This is a 79-year-old gentleman who has significant past history of cardiac diseases including CAD/CABG. Acute inferior ST elevation in November 2018. Primary PCI was complicated by coronary perforation and patient was transferred to [facility] for further management. He presents with complain of generalized weakness. Nausea and vomiting. Progressively getting worse. Recently was placed on Lasix 80 mg, which was tapered to 20 mg. Patient denies any other complaints. He specifically denies chest pain or shortness of breath. He is an active smoker. He also has history of alcohol use. Pertinent family history is positive. Review of Systems-Cardiology Review of Systems Constitutional: As described under HPI; No As described under HPI, No no symptoms reported, No chills, No fever, No lightheadedness; malaise, tiredness Eyes: No As described under HPI, No no symptoms reported, No blindness, No blurred vision, No contact lenses, No drainage, No decreased acuity, No foreign body sensation, No pain, No vision change Ears/Nose/Throat: No As described under HPI, No no symptoms reported, No chronic hearing loss, No ear discharge, No ear pain, No nasal drainage, No ulcerations Respiratory: No no symptoms reported; As described under HPI; No As described under HPI, No cough, No orthopnea, No shortness of breath, No SOB with excertion Cardiovascular: No no symptoms reported; As described under HPI; No As described under HPI, No chest pain, No edema, No irregular heart rate, No lightheadedness, No palpitations Gastrointestinal: No no symptoms reported, No As described under HPI, No abdomen distended, No abdominal pain, No blood streaked bowels, No constipation, No diarrhea, No nausea, No vomiting, No stool coloration changes Genitourinary: No As described under HPI, No burning, No dysuria, No discharge, No frequency, No flank pain, No hematuria, No urgency Skin: No rash, No skin related problems, No ulcerations Psychiatric/Neurological: No anxiety, No depression, No seizure, No focal weakness, No syncope Hematologic: No bleeding abnormalities GBO-Hgivow-Rsyfic Hx Patient Social History Alcohol Use: Occasionally Uses Recreational Drug Use: No Smoking Status: Current Everyday Smoker Type Used: Cigars 2nd Hand Smoke Exposure: Yes Recent Foreign Travel: No Recent Infectious Disease Expo: No Hospitalization with Isolation: Denies Immunizations Up To Date Tetanus Booster (TDap): Unknown Date of Pneumonia Vaccine: Apr 25, 2014 Date of Influenza Vaccine: Apr 10, 2018 Past Medical History PMH As described under Assessment. Family Medical History Family Medical History: Family h/o CAD and CVA in his mother and father No premature CAD or SCD Family History: FH: COPD (chronic obstructive pulmonary disease) 19 FATHER Myocardial infarction 19 MOTHER Allergies and Home Medications Allergies Coded Allergies: Penicillins (Verified Allergy, Unknown, 11/20/18) nitroglycerin (Verified Allergy, Unknown, 11/20/18) Home Medications Acetaminophen 500 Mg Tablet, 1,000 MG PO Q6H PRN for PAIN-MILD, (Reported) Amlodipine Besylate 5 Mg Tablet, 5 MG PO DAILY, (Reported) Aspirin 81 Mg Tablet., 81 MG PO HS, (Reported) Atorvastatin Calcium 40 Mg Tablet, 40 MG PO HS Prescribed by: SHANT KIRBY on 05/24/17 0929 Clopidogrel Bisulfate 75 Mg Tablet, 75 MG PO DAILY, (Reported) Enalapril Maleate 10 Mg Tablet, 10 MG PO BID, (Reported) Fish Oil/Dha/Epa 1 Each Capsule, 1,200 MG PO BID, (Reported) Isosorbide Mononitrate 120 Mg Tab.er.24h, 120 MG PO DAILY, (Reported) Magnesium Oxide 400 Mg Tablet, 400 MG PO BID Prescribed by: JUMANA CABAN on 01/02/18 1122 Metformin HCl 500 Mg Tablet, 500 MG PO BID, (Reported) Metoprolol Tartrate 100 Mg Tablet, 100 MG PO BID, (Reported) Multivits,Ca,Min/Iron/FA/Lycop 1 Each Tablet, 1 TAB PO DAILY, (Reported) Omeprazole 20 Mg Capsule.dr, 20 MG PO BID, (Reported) Patient Home Medication List Home Medication List Reviewed: Yes Physical Exam-Cardiology Physical Exam Vital Signs/I&O 03/18/20 03/18/20 03/18/20 03/18/20 10:00 13:00 15:00 15:34 Temp 36.1 36.0 Pulse 64 64 68 85 Resp 18 18 16 B/P (MAP) 139/84 (102) 145/78 (102) 193/80 Pulse Ox 96 96 95 O2 Delivery Room Air 03/18/20 16:45 Temp 36.4 Pulse 69 Resp 18 B/P (MAP) 136/92 (107) Pulse Ox 97 O2 Delivery Room Air Capillary Refill : Less Than 3 Seconds Constitutional: appears stated age, AAO x 3; No apparent distress; well- developed, well-nourished HEENT: PERRL; No discharge; hearing is well preserved, oral hygience is good; No ulceration, No xanthelasmas are seen Neck: No carotid bruit; carotid pulses are 2 + bilaterally Respiratory: chest is bilaterally symmetric, lungs clear to auscultation Cardiovascular: regular rate-rhythm, S1 and S2; No diastolic murmur, No sys tolic murmur Gastrointestinal: soft, audible bowel sounds; No spleenomegaly Rectal: deferred Extremities: normal range of motion, non-tender, normal inspection; No clubbing, No cyanosis; no lower extremity edema bilateral; No significant edema Neurologic/Psychiatric: no motor/sensory deficits, alert, normal mood/affect, oriented x 3, power is 5/5 both on sides Skin: normal color, warm/dry; No rash, No ulcerations Data Review Labs Laboratory Tests 03/18/20 10:09: White Blood Count 8.1, Red Blood Count 3.19L, Hemoglobin 11.0L, Hematocrit 31L, Mean Corpuscular Volume 98, Mean Corpuscular Hemoglobin 35H, Mean Corpuscular Hemoglobin Concent 35, Red Cell Distribution Width 14.1, Platelet Count 298, Mean Platelet Volume 9.3, Immature Granulocyte % (Auto) 0, Neutrophils (%) (Auto) 73, Lymphocytes (%) (Auto) 14, Monocytes (%) (Auto) 10, Eosinophils (%) (Auto) 3, Basophils (%) (Auto) 1, Neutrophils # (Auto) 5.9, Lymphocytes # (Auto) 1.1, Monocytes # (Auto) 0.8, Eosinophils # (Auto) 0.2, Basophils # (Auto) 0.1, Immature Granulocyte # (Auto) 0.0 03/18/20 10:10: B-Type Natriuretic Peptide 1676.3H 03/18/20 10:44: Sodium Level 127L, Potassium Level 3.5L, Chloride Level 83L, Carbon Dioxide Level 30, Anion Gap 14, Blood Urea Nitrogen 18, Creatinine 1.65H, Estimat Glomerular Filtration Rate 41, BUN/Creatinine Ratio 11, Glucose Level 106H, Calcium Level 9.2, Corrected Calcium 9.6, Magnesium Level 1.8, Total Bilirubin 2.3H, Aspartate Amino Transf (AST/SGOT) 34, Alanine Aminotransferase (ALT/SGPT) 15, Alkaline Phosphatase 233H, Total Creatine Kinase 70, Troponin I 0.033H, C- Reactive Protein High Sensitivity 1.41H, Total Protein 7.0, Albumin 3.5, TSH [place] Testing 0.85, Serum Alcohol < 10 03/18/20 12:12: Urine Color YELLOW, Urine Clarity CLEAR, Urine pH 8.5, Urine Specific [place] 1.010L, Urine Protein 1+H, Urine Glucose (UA) NEGATIVE, Urine Ketones TRACEH, Urine Nitrite NEGATIVE, Urine Bilirubin 1+H, Urine Urobilinogen 1.0, Urine Leukocyte Esterase NEGATIVE, Urine RBC (Auto) NEGATIVE, Urine RBC NONE, Urine WBC 5-10H, Urine Crystals NONE, Urine Amorphous Sediment LARGE VASILE PHOSPHATEH, Urine Bacteria TRACE, Urine Casts NONE, Urine Mucus NEGATIVE, Urine Culture Indicated YES 03/18/20 17:01: ECG Impression ECG Initial ECG Rhythm: Normal Sinus A/P-Cardiology Assessment/Admission Diagnosis Generalized weakness, Active smoking, Active alcohol use, Hyponatremia, Hypokalemia, Acute kidney injury, Positive cardiac enzymes, Anemia, Elevated LFTs Plan Generalized weakness: Could be multifactorial including electrolyte abnormalities, acute kidney injury, possible cardiac etiology. Active smoking: Smoking cessation is strongly recommended. Active alcohol use: Moderation is recommended. Hyponatremia, current sodium is 127. According to Dr. Gonzales this is chronic. Likely due to chronic alcoholism. Hypokalemia, defer to the primary team. Acute kidney injury, could be secondary to dehydration. I agree with gentle fluids. Positive cardiac enzymes, patient does have history of CAD, CABG. Acute inferior STEMI in November 2018 which was complicated by coronary perforation and was transferred to [facility] for further management. Borderline positive troponin. We'll perform serial troponin and echocardiogram. Previous history: Coronary artery disease with a history of coronary artery bypass surgery consisting of left internal mammary artery graft to left anterior descending artery, saphenous vein graft to right coronary artery, saphenous vein graft to diagonal artery, saphenous vein graft to first obtuse marginal artery, saphenous vein graft to second obtuse marginal artery in 1999. Senting of prox LCX in November 2016 after he had presented with ac NSTEMI CAD: Cardiac cath of May 23, 2017: Coronary artery disease primarily consisting of mid vessel occlusions of the left anterior descending artery, ostial occlusion of an obtuse marginal system of the left circumflex artery, ostial and proximal occlusion of the right coronary artery. Two out of four saphenous vein grafts are occluded. One saphenous vein graft to obtuse marginal was widely patent. Another saphenous vein graft to posterior descending branch of the right coronary artery had 90% stenosis at its insertion to which successful balloon angioplasty was carried out which reduced the 90% stenosis to approximately 50% residual. The proximal portion of the left circumflex artery has a widely patent stent that this is known to be a Resolute 2.5 x 22 mm stent that was placed in 11/2016. Most recent cardiac cath of 08-28-17: A 90% stenosis at the site of insertion of the saphenous vein graft into the posterior desce nding branch treated successfully with balloon angioplasty and subsequent stenting with Alpine Xience 2.25 x 18 mm stent. Hypertension, controlled. Hyperlipidemia being treated with statin therapy Diabetes mellitus, type II. Gastroesophageal reflux. Carotid arterial disease, mild, per ultrasonography of June 2017 Complicated patient as above. Thank you for your consultation. Please call me if you have any questions. Ankit Carmen MD, FACP, FACC, FSCAI, FHRS, CCDS Interventional Cardiology Cardiac Electrophysiology Vascular Medicine and Endovascular Interventions Nila CARMEN MD Mar 18, 2020 15:39
[2020-03-18] MEDS ORDERED: FLU QUAD HIGH DOSE 240 MCG/0.7 ML 2020-21 (FLUZONE) IM ONE (18:30)
[2020-03-18] MEDS ORDERED: MAGN400T39 PO (18:35)
[2020-03-18] MEDS ORDERED: METO50TA15 PO (18:35)
[2020-03-18] MEDS ORDERED: OMG1KC PO (18:35)
[2020-03-18] MEDS ORDERED: FURO40TA4 PO (18:35)
[2020-03-18] MEDS ORDERED: ASPI-1238 PO (18:35)
[2020-03-18] MEDS ORDERED: ATOR40TA70 PO (18:35)
[2020-03-18] MEDS ORDERED: RANO10005 PO (18:35)
[2020-03-18] MEDS ORDERED: FAMO20TA5 PO (18:35)
--- NOTE | 2020-03-18 18:36 | NUR ---
SPOKE WITH THE PTS AND WENT THRU THE EXT MED HISTORY TO COMPLETE THE MED REC THE FOLLOWING MEDS ARE ON THE EXT MED HISTORY BUT THEY HAVE BEEN DISCONTINUED: METOLAZONE 2.5MG POTASSIUM 20MEQ ENALAPRIL 10MG METFORMIN 500MG AMLODIPINE 5MG COREG 6.25MG FUROSEMIDE 40MG- DIRECTIONS ARE 1 TAB DAILY HOWEVER PT IS TAKING TAB DAILY ATORVASTATIN 40MG- DIRECTIONS ARE 1 TAB DAILY HOWEVER PT IS TAKING 1 TAB Q48H OTC MEDS: MAGNESIUM TYLENOL FISH OIL MTV ASPIRIN 81MG WAS ADAMANT THAT PT TAKES ISOSORBIDE AND TYLENOL AT 0300
--- NOTE | 2020-03-18 20:48 | History & Physical ---
History of Present Illness History of Present Illness Reason for visit/HPI 79 yo M admitted for weakness attributed to dehydration, electrolyte derangement and possible acute on chronic diastolic congestive heart failure. He was seen in the ER in late January and transferred to [facility] for hyperkalemia and acute kidney failure. Patient has been doing PT/OT with [facility] the last couple weeks and the reported last week his strength and conditioning was 100% and doing well. But earlier this week she called my office and said he has started to get weaker. Pt was brought to [facility] by EMS. BNP elevated, Cr elevated, potassium low, chronic hyponatremia likely related to his daily etoh use. Will admit for observation to further work him up and see what tomorrow brings. Date of Admission Mar 18, 2020 at 12:41 Date Seen by a Provider: Mar 18, 2020 Time Seen by a Provider: 20:47 I consulted on this patient on 03/18/20 20:47 Attending Physician Adan Davidson MD Admitting Physician Adan Davidson MD Consult Allergies and Home Medications Allergies Coded Allergies: Penicillins (Verified Allergy, Unknown, 03/18/20) nitroglycerin (Verified Allergy, Unknown, 03/18/20) Home Medications Acetaminophen 500 Mg Tablet, 1,000 MG PO 0300 PRN for PAIN-MILD, (Reported) Aspirin 81 Mg Tablet.dr, 81 MG PO HS, (Reported) Atorvastatin Calcium 40 Mg Tablet, 40 MG PO Q48H, (Reported) Clopidogrel Bisulfate 75 Mg Tablet, 75 MG PO DAILY, (Reported) Famotidine 20 Mg Tablet, 20 MG PO BID, (Reported) Furosemide 40 Mg Tablet, 20 MG PO DAILY, (Reported) TAKES OF A 40MG TAB Isosorbide Mononitrate 120 Mg Tab.er.24h, 120 MG PO 0300, (Reported) Magnesium Oxide 400 Mg Tablet, 400 MG PO DAILY, (Reported) Metoprolol Tartrate 50 Mg Tablet, 50 MG PO BID, (Reported) Multivits,Ca,Min/Iron/FA/Lycop 1 Each Tablet, 1 TAB PO DAILY, (Reported) [place] 3 Polyunsat Fatty Acids 1,000 Mg Cap, 2,000 MG PO DAILY, (Reported) Omeprazole 20 Mg Capsule.dr, 20 MG PO BID, (Reported) Ranolazine 1,000 Mg Tab.er.12h, 1,000 MG PO BID, (Reported) Patient Home Medication List Home Medication List Reviewed: Yes Past Pnaukwl-Emhcrk-Duphcv Hx Patient Social History Marrital Status: Alcohol Use: Occasionally Uses Alcohol Beverage of Choice: [place] Recreational Drug Use: No Smoking Status: Current Everyday Smoker Type Used: Cigars 2nd Hand Smoke Exposure: Yes Physical Abuse Screen: No Sexual Abuse: No Recent Foreign Travel: No Contact w/other who traveled: No Recent Hopitalizations: No Recent Infectious Disease Expo: No Immunizations Up To Date Tetanus Booster (TDap): Unknown Pediatric: No Date of Pneumonia Vaccine: Apr 25, 2014 Date of Influenza Vaccine: Apr 10, 2018 Seasonal Allergies Seasonal Allergies: No Surgeries Yes (CARDIAC CATHS X 4 WITH STENTS X 2 , ANGIOPLASTIES AND 5 VESSEL CABG) Cardiac, CABG, Coronary Stent, Gallbladder Respiratory Yes Currently Using CPAP: No Currently Using BIPAP: No Cardiovascular Yes (STEMI 2018) Chronic Edema/Swelling, Coronary Artery Disease, Heart Attack, High Cholesterol, Hypertension Neurological Yes (SUBDURAL AND SUBARACHNOID BLEEDIN 11/20/18) Reproductive System Hx Reproductive Disorders: No Sexually Transmitted Disease: No HIV/AIDS: No Genitourinary No Gastrointestinal Yes Gastroesophageal Reflux Musculoskeletal Yes Chronic Back Pain Endocrine History of Endocrine Disorders: Yes Endocrine Disorders: Diabetes, Non-Insulin dep HEENT History of HEENT Disorders: Yes HEENT Disorders: Cataract Loss of Vision: Denies Hearing Impairment: Denies Cancer No Psychosocial History of Psychiatric Problem: No Integumentary History of Skin or Integumenta: No Blood Transfusions History of Blood Disorders: No Adverse Reaction to a Blood Tr: No Family Medical History Family Hx: FH: COPD (chronic obstructive pulmonary disease) 19 FATHER Myocardial infarction 19 MOTHER Review of Systems Review of Systems General: No Chills, No Night Sweats HEENT: No Head Aches, No Visual Changes Pulmonary: No Dyspnea, No Cough Cardiovascular: No: Chest Pain, Palpitations, Orthopnea Gastrointestinal: Nausea, Vomiting, Abdominal Pain Genitourinary: No Dysuria Musculoskeletal: No: neck pain Neurological: Weakness Physical Exam Vital Signs Vital Signs - First Documented 03/18/20 03/18/20 10:00 15:00 Temp 36.1 Pulse 64 Resp 18 B/P (MAP) 139/84 (102) Pulse Ox 96 O2 Delivery Room Air Capillary Refill : Less Than 3 SecondsLess Than 3 Seconds Height, Weight, BMI Height: 5'9.00" Weight: 186lbs. 8.0oz. [id number]; 24.48 BMI Method:Stated General Appearance: No Apparent Distress Respiratory: Lungs Clear, Normal Breath Sounds Cardiovascular: Regular Rate, Rhythm, Systolic Murmur Gastrointestinal: Non Tender, Soft Rectal: Deferred Extremity: Non Tender, No Calf Tenderness, No Pedal Edema Neurologic/Psychiatric: Alert, Oriented x3, Depressed Affect (flat but this is baseline) Skin: Warm/Dry Assessment/Plan Assessment/Plan Admission Dx weakness Admission Status: Observation Assessment and Plan 03/18/20- admitted observation- suspect his weakness is multifactorial- including renal, cardiac, electrolyte. -NS IVF a 100cc/hr- recheck Na,K level in AM. -replace potassium -monitor Cr -Echocardiogram ordered. -Dr. Carmen covering for Dr. Broderick. Dispo: follow up in AM Problems: (1) Acute on chronic kidney failure Qualifiers: Qualified Codes: N17.0 - Acute kidney failure with tubular necrosis; N18.3 - Chronic kidney disease, stage 3 (moderate) (2) Hypokalemia (3) CAD (coronary artery disease) (4) Alcohol dependence, daily use Assessment & Plan: contributing to his chronic hyponatremia (5) HTN (hypertension) (6) Hyponatremia (7) Weakness (8) Elevated troponin Clinical Quality Measures DVT/VTE Risk/Contraindication: Risk Factor Score Per Nursin RFS Level Per Nursing on Admit: 4+=Very High ADAN DAVIDSON MD Mar 18, 2020 20:48
[2020-03-18] MEDS ORDERED: MAGNESIUM OXIDE (MAG-OX)400 MG TAB PO SCH (21:00)
[2020-03-18] MEDS ORDERED: KCL 20 MEQ TAB (K-DUR) PO ONE (21:00)
[2020-03-19] VITALS: BP 136/72
[2020-03-19 03:23] VITALS: BP 153/85
[2020-03-19 05:39] LABS: BASOPHILS % (AUTO) 1 % (0-10); EOSINOPHILS # (AUTO) 0.2 10^3/uL (0.0-0.3); EOSINOPHILS % (AUTO) 2 % (0-10); HEMATOCRIT 31 % (40-54); HEMOGLOBIN 10.7 g/dL (13.3-17.7); LYMPHOCYTES # (AUTO) 0.9 10^3/uL (1.0-4.0); LYMPHOCYTES % (AUTO) 10 % (12-44); MEAN CORPUSCULAR HEMOGLOBIN 34 pg (25-34); MEAN CORPUSCULAR HGB CONC 35 g/dL (32-36); MEAN CORPUSCULAR VOLUME 98 fL (80-99); MEAN PLATELET VOLUME 9.2 fL (9.0-12.2); MONOCYTES # (AUTO) 0.7 10^3/uL (0.0-1.0); MONOCYTES % (AUTO) 8 % (0-12); NEUTROPHILS % (AUTO) 80 % (42-75); PLATELET COUNT 291 10^3/uL (130-400); WHITE BLOOD COUNT 8.8 10^3/uL (4.3-11.0)
[2020-03-19 05:54] LABS: POTASSIUM 3.6 MMOL/L (3.6-5.0)
[2020-03-19 05:56] LABS: CALCIUM 8.8 MG/DL (8.5-10.1)
[2020-03-19 06:00] LABS: CREATININE SERUM 1.48 MG/DL (0.60-1.30)
[2020-03-19 06:02] LABS: MAGNESIUM 1.6 MG/DL (1.6-2.4)
[2020-03-19] MEDS: KCL 20 MEQ TAB (K-DUR) PO SCH (06:32)
[2020-03-19] MEDS: THIAMINE 100 MG (VITAMIN B-1) TAB PO SCH (06:32)
[2020-03-19] MEDS: MULTIVIT W/MINERALS TAB (THERAGRAN M) PO SCH (06:32)
[2020-03-19 08:00] VITALS: BP 145/79
[2020-03-19] MEDS: MAGNESIUM OXIDE (MAG-OX)400 MG TAB PO SCH ×2 (09:06→17:07)
[2020-03-19] MEDS: SODIUM CHLORIDE 3% 500 ML IV SCH (09:06)
[2020-03-19] MEDS: FOLIC ACID 1 MG TAB PO SCH (09:06)
[2020-03-19 12:00] VITALS: BP 147/75
[2020-03-19 12:31] LABS: CALCIUM 8.6 MG/DL (8.5-10.1); CREATININE SERUM 1.37 MG/DL (0.60-1.30); POTASSIUM 3.9 MMOL/L (3.6-5.0)
--- NOTE | 2020-03-19 13:49 | NUR ---
RD ASSESSMENT PMHx: CHF; DM; CAD; hypercholesterolemia; HTD; GERD PT INTERACTION: Pt was awake and pleasant during dietary consult for MST score. Pt states current appetite is not good, and has been this way for a few weeks. Note avg PO intake <10% x3meal, per chart review. Pt states following a regular diet at home, and has some difficulty swallowing foods like bread and crackers. Pt states some recent issues with nausea and vomiting. Note episodes of emesis on 03/18, per chart review. Pt states no recent issues with constipation or diarrhea, and that his last BM was 03/19. Note pt not currently on bowel regimen per chart review. Pt states recent wt loss, attributing it to fluid losses. Note recent 17# wt loss x1mon, per chart review. Upon visual assessment, pt appears to be adequately nourished with no visible signs of muscle/fat wasting and a BMI of 24.4 (Normal BMI for age). Pt states current DM management is good. "I'm guessing it's pretty good. They took me off my meds." Not unable to determine recent HbA1c, per chart review. Given PO intake, wt hx, and visual assessment, pt meets criteria for malnutrition per ASPEN guidelines. ABNORMAL NUTRITION-RELATED LAB VALUES LOW: Na 124; Cl 83 HIGH: cr 1.48 Est. kcal needs: 1875 kcal | 25 kcal/kg Est. Pro needs: 75 g Pro | 1.0 g Pro/kg PES STATEMENT: Inadequate oral intake (NI-2.1) related to loss of appetite | nausea | vomiting as evidenced by pt interview | avg PO intake <10% x3meal INTERVENTION: Continue with current diet order of CHO 75g/m 0snack diet. Switch current supplementation order from Ensure Enlive (vary) with meals TID to Glucerna (vary) with meals TID, for increased kcal intake and better glucose control. Provides 220 kcal and 10 g Pro per serving. Offered diet education on DM management, but pt declined, stating he had good control of his DM. Will continue to follow and reassess as pt needs, intake, and status change. Zachary Woods, MS, RD, LD
--- NOTE | 2020-03-19 14:07 | Progress Note ---
Subjective Subjective Date Seen by Provider: Mar 19, 2020 Time Seen by Provider: 14:49 Sodium was lower at 124 this AM. Patient's called and said it has been 5 days since Mason has ate a meal; He does not have an appetite. He has not drank any bourbon for 4-5 days or smoked a cigar and he usually does both of these daily. would like Mason to get a flu shot as well. Patient reports he feels much better and would like to go home. Review of Systems General: No Chills, No Night Sweats HEENT: No Head Aches Pulmonary: No Dyspnea, No Cough Cardiovascular: No: Chest Pain Gastrointestinal: No: Nausea, Vomiting Genitourinary: No Dysuria, No Frequency Neurological: Weakness Objective Exam Vital Signs Vital Signs Date Time Temp Pulse Resp B/P (MAP) Pulse Ox O2 Delivery O2 Flow Rate FiO2 03/19/20 12:40 76 03/19/20 12:00 36.2 80 18 147/75 (99) 95 Room Air 03/19/20 08:00 Room Air 03/19/20 08:00 36.4 78 18 145/79 (101) 93 Room Air 03/19/20 07:00 79 03/19/20 03:23 36.5 78 20 153/85 (107) 92 Room Air 03/19/20 01:00 80 03/19/20 00:00 36.0 77 20 136/72 (93) 91 Room Air 03/18/20 20:00 Room Air 03/18/20 19:00 69 152/90 (110) 94 03/18/20 19:00 80 03/18/20 18:23 Room Air 03/18/20 17:00 70 149/85 (106) 94 03/18/20 16:45 36.4 69 18 136/92 (107) 97 Room Air 03/18/20 16:30 69 154/82 (106) 97 03/18/20 16:15 73 155/81 (105) 98 03/18/20 16:00 36.4 68 18 149/85 (106) 96 Room Air 03/18/20 15:34 85 03/18/20 15:00 36.0 68 16 193/80 95 Room Air I & O 03/19/20 07:00 Intake Total 1700 ml Output Total 875 ml Balance 825 ml General Appearance: No Apparent Distress HEENT: PERRL/EOMI, Normal ENT Inspection, Other (mucous membranes somewhat pasty) Neck: Normal Inspection Respiratory: Lungs Clear, Normal Breath Sounds, No Accessory Muscle Use, No Respiratory Distress Cardiovascular: No Edema, No Murmur, Systolic Murmur Gastrointestinal: Normal Bowel Sounds, Non Tender, Soft Extremity: Normal Inspection, No Pedal Edema, Other (skin of the lower extremities appears desiccated as if there was previously edema that has now resolved.) Neurologic/Psychiatric: Alert, Oriented x3, No Motor/Sensory Deficits, Normal Mood/Affect, camp manager II-XII Norm as Tested Skin: Normal Color, Warm/Dry Results Lab Laboratory Tests 03/18/20 17:01: Troponin I 0.030H 03/19/20 05:01: White Blood Count 8.8, Red Blood Count 3.15L, Hemoglobin 10.7L, Hematocrit 31L, Mean Corpuscular Volume 98, Mean Corpuscular Hemoglobin 34, Mean Corpuscular Hem oglobin Concent 35, Red Cell Distribution Width 14.0, Platelet Count 291, Mean Platelet Volume 9.2, Immature Granulocyte % (Auto) 0, Neutrophils (%) (Auto) 80H , Lymphocytes (%) (Auto) 10L, Monocytes (%) (Auto) 8, Eosinophils (%) (Auto) 2, Basophils (%) (Auto) 1, Neutrophils # (Auto) 7.0, Lymphocytes # (Auto) 0.9L, Monocytes # (Auto) 0.7, Eosinophils # (Auto) 0.2, Basophils # (Auto) 0.0, Immature Granulocyte # (Auto) 0.0, Sodium Level 124*L, Potassium Level 3.6, Chloride Level 83L, Carbon Dioxide Level 26, Anion Gap 15H, Blood Urea Nitrogen 18, Creatinine 1.48H, Estimat Glomerular Filtration Rate 46, BUN/Creatinine Ratio 12, Glucose Level 80, Calcium Level 8.8, Magnesium Level 1.6, B-Type Natriuretic Peptide 3159.5H 03/19/20 12:05: Sodium Level 126L, Potassium Level 3.9, Chloride Level 86L, Carbon Dioxide Level 24, Anion Gap 16H, Blood Urea Nitrogen 18, Creatinine 1.37H, Estimat Glomerular Filtration Rate 50, BUN/Creatinine Ratio 13, Glucose Level 85, Calcium Level 8.6 Microbiology 03/18/20 Urine Culture - Final, Complete NO GROWTH Assessment/Plan Assessment/Plan Admission Dx weakness Assessment and Plan 03/18/20- admitted observation- suspect his weakness is multifactorial- including renal, cardiac, electrolyte. -NS IVF a 100cc/hr- recheck Na,K level in AM. -replace potassium -monitor Cr -Echocardiogram ordered. -Dr. Carmen covering for Dr. Broderick. 03/19/20- stopped NS IVF- started hypertonic 3% saline at 30cc/hr this AM- recheck of Na level up to 126 from 124. Continue 3% saline. Will recheck at 2000hr and d/c once his Na level gets >130. BNP elevated- so hold IVF besides the 3% saline at 30cc/hr. ECHO - 25-30% LVEF. Creatinine a little better. DVT: he is on plavix- not on heparin/lovenox as he had history of subdural hemorrhage in October 2018- that started to enlarge. Shared decision making utilized. -Could d/c home this weekend once Na gets higher than 130 and cardiology is okay with d/c to home. He has [facility]- so he should resume PT/OT with them. Problems: (1) Acute on chronic kidney failure Qualifiers: Qualified Codes: N17.0 - Acute kidney failure with tubular necrosis; N18.3 - Chronic kidney disease, stage 3 (moderate) (2) Hypokalemia Assessment & Plan: replacing (3) CAD (coronary artery disease) (4) Alcohol dependence, daily use Assessment & Plan: contributing to his chronic hyponatremia (5) HTN (hypertension) (6) Hyponatremia (7) Weakness (8) Elevated troponin Admission Dx weakness Clinical Quality Measures Admission Status Admission Dx weakness DVT/VTE Risk/Contraindication: Risk Factor Score Per Nursin RFS Level Per Nursing on Admit: 4+=Very High HOLGER DAVIDSON MD Mar 19, 2020 14:07
--- NOTE | 2020-03-19 15:01 | NUR ---
CM/SS following with patient for discharge planning. The patient will return home with [facility]. CM/SS contacted [facility] to inform them that patient might discharge over the weekend. They verbalized understanding and stated this sw could send discharge orders and face to face on Sunday if patient discharges over the weekend.
--- NOTE | 2020-03-19 15:04 | Cardiology Progress Note ---
Cardiology SOAP Progress Note Subjective: No chest pain or shortness of breath. Objective: I&O/Vital Signs 03/19/20 03/19/20 03/19/20 03/19/20 07:00 08:00 08:00 12:00 Temp 36.4 36.2 Pulse 79 78 80 Resp 18 18 B/P (MAP) 145/79 (101) 147/75 (99) Pulse Ox 93 95 O2 Delivery Room Air Room Air Room Air 03/19/20 12:40 Pulse 76 03/19/20 00:00 Intake Total 300 ml Output Total 275 ml Balance 25 ml Weight (Pounds): 186 Weight (Ounces): 8.0 Weight (Calculated Kilograms): 84.124466 Constitutional: appears stated age, AAO x 3; No apparent distress; well-developed, well-nourished Respiratory: chest is bilaterally symmetric, lungs clear to auscultation Cardiovascular: regular rate-rhythm, S1 and S2; No diastolic murmur, No systolic murmur Gastrointestional: soft, audible bowel sounds; No spleenomegaly Extremities: normal range of motion, non-tender, normal inspection; No clubbing, No cyanosis; no lower extremity edema bilateral; No significant edema Neurologic/Psychiatric: no motor/sensory deficits, alert, normal mood/affect, oriented x 3, power is 5/5 both on sides Skin: normal color, warm/dry; No rash, No ulcerations Results/Procedures: Labs Laboratory Tests 03/18/20 17:01: Troponin I 0.030H 03/19/20 05:01: White Blood Count 8.8, Red Blood Count 3.15L, Hemoglobin 10.7L, Hematocrit 31L, Mean Corpuscular Volume 98, Mean Corpuscular Hemoglobin 34, Mean Corpuscular Hemoglobin Concent 35, Red Cell Distribution Width 14.0, Platelet Count 291, Mean Platelet Volume 9.2, Immature Granulocyte % (Auto) 0, Neutrophils (%) (Auto) 80H, Lymphocytes (%) (Auto) 10L, Monocytes (%) (Auto) 8, Eosinophils (%) (Auto) 2, Basophils (%) (Auto) 1, Neutrophils # (Auto) 7.0, Lymphocytes # (Auto) 0.9L, Monocytes # (Auto) 0.7, Eosinophils # (Auto) 0.2, Basophils # (Auto) 0.0, Immature Granulocyte # (Auto) 0.0, Sodium Level 124*L, Potassium Level 3.6, Chloride Level 83L, Carbon Dioxide Level 26, Anion Gap 15H, Blood Urea Nitrogen 18, Creatinine 1.48H, Estimat Glomerular Filtration Rate 46, BUN/Creatinine Ratio 12, Glucose Level 80, Calcium Level 8.8, Magnesium Level 1.6, B-Type Natriuretic Peptide 3159.5H 03/19/20 12:05: Sodium Level 126L, Potassium Level 3.9, Chloride Level 86L, Carbon Dioxide Level 24, Anion Gap 16H, Blood Urea Nitrogen 18, Creatinine 1.37H, Estimat Glomerular Filtration Rate 50, BUN/Creatinine Ratio 13, Glucose Level 85, Calcium Level 8.6 Microbiology 03/18/20 Urine Culture - Final, Complete NO GROWTH A/P: Assessment/Dx: Generalized weakness, Active smoking, Active alcohol use, Hyponatremia, Hypokalemia, Acute kidney injury, Positive cardiac enzymes, Anemia, Elevated LFTs Plan: Generalized weakness: Could be multifactorial including electrolyte abnormalities, acute kidney injury, possible cardiac etiology. Active smoking: Smoking cessation is strongly recommended. Active alcohol use: Moderation is recommended. Hyponatremia, current sodium is 127. According to Dr. Gonzales this is chronic. Likely due to chronic alcoholism. Hypokalemia, defer to the primary team. Acute kidney injury, could be secondary to dehydration. I agree with gentle fluids. Positive cardiac enzymes, patient does have history of CAD, CABG. Acute inferior STEMI in November 2018 which was complicated by coronary perforation and was transferred to [facility] for further management. Borderline positive troponin. We'll perform serial troponin and echocardiogram. Echocardiogram shows EF of 25-30 percent. Likely ischemic cardiomyopathy. Life Vest is recommended for primary prevention of sudden cardiac . Previous history: Coronary artery disease with a history of coronary artery bypass surgery consisting of left internal mammary artery graft to left anterior descending artery, saphenous vein graft to right coronary artery, saphenous vein graft to diagonal artery, saphenous vein graft to first obtuse marginal artery, saphenous vein graft to second obtuse marginal artery in 1999. Senting of prox LCX in November 2016 after he had presented with ac NSTEMI CAD: Cardiac cath of May 23, 2017: Coronary artery disease primarily consisting of mid vessel occlusions of the left anterior descending artery, ostial occlusion of an obtuse marginal system of the left circumflex artery, ostial and proximal occlusion of the right coronary artery. Two out of four saphenous vein grafts are occluded. One saphenous vein graft to obtuse marginal was widely patent. Another saphenous vein graft to posterior descending branch of the right coronary artery had 90% stenosis at its insertion to which successful balloon angioplasty was carried out which reduced the 90% stenosis to approximately 50% residual. The proximal portion of the left circumflex artery has a widely patent stent that this is known to be a Resolute 2.5 x 22 mm stent that was placed in 11/2016. Most recent cardiac cath of 08-28-17: A 90% stenosis at the site of insertion of the saphenous vein graft into the posterior descending branch treated successfully with balloon angioplasty and subsequent stenting with Alpine Xience 2.25 x 18 mm stent. Hypertension, controlled. Hyperlipidemia being treated with statin therapy Diabetes mellitus, type II. Gastroesophageal reflux. Carotid arterial disease, mild, per ultrasonography of June 2017 Complicated patient as above. Thank you for your consultation. Please call me if you have any questions. Ankit Carmen MD, FACP, FACC, FSCAI, FHRS, CCDS Interventional Cardiology Cardiac Electrophysiology Vascular Medicine and Endovascular Interventions Nila CARMEN MD Mar 19, 2020 15:04
--- NOTE | 2020-03-19 15:07 | Physical Therapy Evaluation ---
PT Evaluation-General Medical Diagnosis Admission Date Mar 18, 2020 at 12:41 Medical Diagnosis: CHF Onset Date: Mar 18, 2020 Therapy Diagnosis Therapy Diagnosis: impaired mobility, balance, endurance, strength Height/Weight Height (Feet): 5 Height (Inches): 9.00 Weight (Pounds): 186 Weight (Ounces): 8.0 Precautions Precautions/Isolations: Fall Prevention, Standard Precautions Weight Bear Status Right Lower Extremity: Right Full Weight Bearing Left Lower Extremity: Left Full Weight Bearing Referral Physician: Kyle Reason for Referral: Evaluation/Treatment Medical History Additional Medical History Surgeries Yes (CARDIAC CATHS X 4 WITH STENTS X 2 , ANGIOPLASTIES AND 5 VESSEL CABG) Cardiac, CABG, Coronary Stent, Gallbladder Respiratory Yes Currently Using CPAP: No Currently Using BIPAP: No Cardiovascular Yes (STEMI 2018) Chronic Edema/Swelling, Coronary Artery Disease, Heart Attack, High Cholesterol, Hypertension Neurological Yes (SUBDURAL AND SUBARACHNOID BLEEDIN 11/20/18) Reproductive System Hx Reproductive Disorders: No Sexually Transmitted Disease: No HIV/AIDS: No Genitourinary No Gastrointestinal Yes Gastroesophageal Reflux Musculoskeletal Yes Chronic Back Pain Endocrine History of Endocrine Disorders: Yes Endocrine Disorders: Diabetes, Non-Insulin dep Reviewed History: Yes Social History Home: Single Level Current Living Status: Spouse Entry Into Home: Ramp Prior Prior Level of Function SCALE: Activities may be completed with or without assistive devices. 5-Zegejeojhe-nslpbti completes the activity by him/herself with no assistance from a helper. 5-Set-up or Clean-up Assistance-helper sets up or cleans up; patient completes activity. [place] assists only prior to or following the activity. 4-Supervision or Touching Assistance-helper provides verbal cues and/or touching/steadying and/or contact guard assistance as patient completes activity. Assistance may be provided throughout the activity or intermittently. 3-Partial/Moderate Assistance-helper does LESS THAN HALF the effort. [place] lifts, holds or supports trunk or limbs, but provides less than half the effort. 2-Substantial/Maximal Assistance-helper does MORE THAN HALF the effort. [place] lifts or holds trunk or limbs and provides more than half the effort. 6-Cijkeskuq-urzcuo does ALL the effort. Patient does none of the effort to complete the activity. Or, the assistance of 2 or more helpers is required for the patient to complete the activity. If activity was not attempted, code reason: 7-Patient Refused. 9-Not Applicable-not attempted and the patient did not perform the activity before the current illness, exacerbation or injury. 10-Not Attempted due to Environmental Limitations-(lack of equipment, weather restraints, etc.). 88-Not Attempted due to Medical Conditions or Safety Concerns. Bed Mobility: 6 Transfers (B,C,W/C): 6 Gait: 6 Patient states she was using a SPC previously PT Evaluation-Current Subjective Patient in bed pre tx, agrees to PT, has no complaints of pain. Pt/Family Goals "to go home" Objective Patient Orientation: Person, Confused, Place ROM/Strength ROM Lower Extremities WNL Strength Lower Extremities LLE (hip flexion 3+/5, knee flexion 3+/5, knee extension 4/5, dorsiflexion 3+/5), RLE (hip flexion 3+/5, knee flexion 3+/5, knee extension 4/5, dorsiflexion 3+/5) Sensory Hearing: Functional Sensation Right Lower Extremit: Intact Sensation Left Lower Extremity: Intact Transfers Roll Left to Right (QC): 6 Sit to Lying (QC): 6 Lying to Sitting/Side of Bed(Q: 3 Sit to Stand (QC): 4 Chair/Twg-bp-[place] Xfer(QC): 4 Patient needed min assist with upper body during supine to sit. Cues for safety and positioning. Gait Does the Patient Walk?: Yes Mode of Locomotion: Walk Anticipated Mode of Locomotion: Walk Walk 10 feet (QC): 4 Walk 50 ft with 2 Turns(QC): 4 Walk 150 ft (QC): 4 Distance: 160' Gait Assistive Device: FWW Comments/Gait Description Slow ambulation, unsteady and even more unsteady during turns, cues for safety and direction Balance Sitting Static: Normal Sitting Dynamic: Normal Standing Static: Fair Standing Dynamic: Poor Treatment BLE supine exercises x15 (AP, QS, HS), patient instructed in the use of AP to prevent DVT's Assessment/Needs Patient has impaired mobility, strength, endurance, balance. Patient unsteady during ambulation and needs somebody to be with him, no tiffany LOB. Patient in bed post tx with nurse call, phone, tray, all needs met, bed alarm on and telesitter in room. Rehab Potential: Fair PT Fur Drummer Goals Fur Drummer Goals PT [facility] Goals Time Frame: Mar 26, 2020 Roll Left & Right (QC): 6 Sit to Lying (QC): 6 Lying-Sitting on Side/Bed(QC): 6 Sit to Stand (QC): 5 Chair/Ovr-tn-Qovyx Xfer(QC): 5 Walk 10 feet (QC): 5 Walk 50ft with 2 Turns (QC): 5 Walk 150 ft (QC): 5 PT Plan Problem List Problem List: Activity Tolerance, Functional Strength, Safety, Balance, Gait, Transfer, Bed Mobility Treatment/Plan Treatment Plan: Continue Plan of Care Treatment Plan: Bed Mobility, Education, Functional Activity Davina, Functional Strength, Gait, Safety, Therapeutic Exercise, Transfers Treatment Duration: Mar 26, 2020 Frequency: 6 times per week Estimated Hrs Per Day: .25 hour per day Patient and/or Family Agrees t: Yes Safety Risks/Education Patient Education: Gait Training, Transfer Techniques, Correct Positioning, Safety Issues Teaching Recipient: Patient Teaching Methods: Demonstration, Discussion Response to Teaching: Reinforcement Needed Discharge Recommendations Plan Patient will perform bed mobility and transfer training, balance and endurance training, functional strengthening, stair training, gait training, and education, to improve functional mobility and independence at home Therapy Discharge Recommendati: Home & Family, Post Acute PT Time/GCodes Time In: 1440 Time Out: 1456 Total Billed Treatment Time: 16 Total Billed Treatment 1 visit RAFFAELE CHAMBERS PT Mar 19, 2020 15:07
--- NOTE | 2020-03-19 16:00 | NUR ---
This RN assumed patient care at this time. patient alert and orientated. resting in bed at this time watching TV, verbalizes no additional needs
[2020-03-19 16:06] VITALS: BP 137/70
[2020-03-19 20:10] VITALS: BP 141/75
[2020-03-19] MEDS: FAMOTIDINE 20 MG (PEPCID) TABLET PO SCH (20:34)
[2020-03-19] MEDS: meTOprolol TARTRATE 50 MG (LOPRESSOR) TAB PO SCH (20:34)
[2020-03-19] MEDS: RANOLAZINE ER 500 MG TAB (RANEXA) PO SCH (20:34)
[2020-03-19 20:38] LABS: CALCIUM 8.9 MG/DL (8.5-10.1)
[2020-03-19 20:42] LABS: CREATININE SERUM 1.39 MG/DL (0.60-1.30)
[2020-03-20 00:06] VITALS: BP 106/56
[2020-03-20] MEDS: SODIUM CHLORIDE 3% 500 ML IV SCH ×2 (01:56→16:44)
[2020-03-20] MEDS: ISOSORBIDE MONONITRATE 60 MG (IMDUR) TAB PO SCH (01:56)
[2020-03-20 04:37] VITALS: BP 104/58
[2020-03-20] MEDS: THIAMINE 100 MG (VITAMIN B-1) TAB PO SCH (06:08)
[2020-03-20] MEDS: KCL 20 MEQ TAB (K-DUR) PO SCH (06:08)
[2020-03-20] MEDS: MULTIVIT W/MINERALS TAB (THERAGRAN M) PO SCH (06:08)
[2020-03-20 06:17] LABS: BASOPHILS % (AUTO) 0 % (0-10); EOSINOPHILS # (AUTO) 0.2 10^3/uL (0.0-0.3); EOSINOPHILS % (AUTO) 3 % (0-10); HEMATOCRIT 31 % (40-54); HEMOGLOBIN 10.5 g/dL (13.3-17.7); LYMPHOCYTES # (AUTO) 0.8 10^3/uL (1.0-4.0); LYMPHOCYTES % (AUTO) 9 % (12-44); MEAN CORPUSCULAR HEMOGLOBIN 34 pg (25-34); MEAN CORPUSCULAR HGB CONC 34 g/dL (32-36); MEAN CORPUSCULAR VOLUME 100 fL (80-99); MONOCYTES # (AUTO) 0.7 10^3/uL (0.0-1.0); MONOCYTES % (AUTO) 9 % (0-12); NEUTROPHILS # (AUTO) 6.7 10^3/uL (1.8-7.8); NEUTROPHILS % (AUTO) 79 % (42-75); PLATELET COUNT 298 10^3/uL (130-400); WHITE BLOOD COUNT 8.5 10^3/uL (4.3-11.0)
[2020-03-20 06:26] LABS: CALCIUM 8.6 MG/DL (8.5-10.1)
[2020-03-20 06:31] LABS: CREATININE SERUM 1.37 MG/DL (0.60-1.30)
[2020-03-20 07:30] VITALS: BP 126/69
[2020-03-20] MEDS: meTOprolol TARTRATE 50 MG (LOPRESSOR) TAB PO SCH ×2 (08:42→20:40)
[2020-03-20] MEDS: FAMOTIDINE 20 MG (PEPCID) TABLET PO SCH (08:42)
[2020-03-20] MEDS: MAGNESIUM OXIDE (MAG-OX)400 MG TAB PO SCH ×2 (08:42→17:51)
[2020-03-20] MEDS: RANOLAZINE ER 500 MG TAB (RANEXA) PO SCH ×2 (08:42→20:40)
[2020-03-20] MEDS: FOLIC ACID 1 MG TAB PO SCH (08:43)
[2020-03-20] MEDS: CLOPIDOGREL 75 MG (PLAVIX) TABLET PO SCH (08:43)
--- NOTE | 2020-03-20 10:19 | Discharge Summary ---
Diagnosis/Chief Complaint Date of Admission Mar 18, 2020 at 12:41 Date of Discharge Discharge Date: Mar 20, 2020 Discharge Time: 11:00 Admission Diagnosis Admission Diagnosis (1) Acute on chronic kidney failure Qualifiers: Qualified Codes: N17.0 - Acute kidney failure with tubular necrosis; N18.3 - Chronic kidney disease, stage 3 (moderate) (2) Hypokalemia (3) CAD (coronary artery disease) (4) Alcohol dependence, daily use Assessment & Plan: contributing to his chronic hyponatremia (5) HTN (hypertension) (6) Hyponatremia (7) Weakness (8) Elevated troponin Discharge Diagnosis HYPONATREMIA ACUTE ON CHRONIC RENAL FAILURE ALCOHOL ABUSE HYPERTENSION 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 He was seen in the ER in late January and transferred to [facility] for hyperkalemia and acute kidney failure. Patient has been doing PT/OT with [employer] the last couple weeks and the reported last week his strength and conditioning was 100% and doing well. But earlier this week she called my office and said he has started to get weaker. Pt was brought [facility] by EMS. BNP elevated, Cr elevated, potassium low, chronic hyponatremia likely related to his daily etoh use. Will admit for observation to further work him up and see what tomorrow brings. Discharge Summary Procedures: ECHO Consultations DR. STEVEN - CARDIOLOGY Discharge Physical Examination Allergies: Coded Allergies: Penicillins (Verified Allergy, Unknown, 03/18/20) nitroglycerin (Verified Allergy, Unknown, 03/18/20) Vitals & I&Os Vital Signs Date Time Temp Pulse Resp B/P (MAP) Pulse Ox O2 Delivery O2 Flow Rate FiO2 03/20/20 11:10 37.0 60 18 124/64 (84) 94 Room Air General Appearance: Alert, Oriented X3, Cooperative HEENT: Atraumatic, PERRLA Respiratory: Other (CLEAR IN UPPER LOBES, WITH FAINT CRACKLES LEFT BASE) Cardiovascular: Regular Rate, Other (WITH ii/vi OZZIE) Abdominal: Normal Bowel Sounds, Soft, No Tenderness Extremities: No Cyanosis Skin: No Rashes, No Breakdown Neuro: Cranial Nerves 3-12 NL Psych/Mental Status: Mental Status NL, Mood NL Hospital Course Was the Problem List Reviewed?: Yes HYPONATREMIA ACUTE ON CHRONIC RENAL FAILURE ALCOHOL ABUSE HYPERTENSION 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 ACUTE ON CHRONIC RENAL FAILURE - DUE TO POOR INTAKE WELL PATIENT TAKING DIURETICS AND ONLY DRINKING ALCOHOL WITH POOR FOOD AND OTHER FLUID INTAKE OVER THE WEEK PRIOR TO THE ADMISSION TO THE HOSPITAL. - RENAL FUNCTION IMPROVED WITH HYDRATION. - DECREASED LASIX FROM 20MG EVERY DAY TO 20MG THREE DAYS A WEEK AND THEY ARE TO CALL THE PHYSICIAN IF HIS WEIGHT INCREASES MORE THAN 3 POUNDS IN 24 HOURS FOR FURTHER LASIX ORDERS. ALCOHOL ABUSE - CHRONIC - PT HAS BEEN ADVISED TO STOP DRINKING - BUT I SUSPECT BASED ON HIS COMMENTS IN THE ROOM THAT HE WILL NOT QUIT - HE STATED - "OH, BUT I LOVE THE TASTE OF MY BOURBON" - CONTINUE TO BE FOLLOWED CLOSELY BY HIS PRIMARY CARE PHYSICIAN WITH CONTINUED ENCOURAGEMENT FOR PT TO STOP DRINKING. HYPERTENSION - RESUME HOME REGIMEN CHRONIC CONGESTIVE HEART FAILURE WITH CHRONIC ISCHEMIC CARDIOMYOPATHY - DISCUSSED WITH DR. STEVEN - PT WILL GO HOME WITH A LIFE VEST IF ONE IS AVAILABLE AND PATIENT IS IN AGREEMENT WITH THIS PLAN. - ECHO REPORT - LEFT VENTRICAL SYSTOLIC FUNCTION REDUCED, EF 25 - 30% - GRADE 2 DIASTOLIC DYSFUNCTION, DILATED LEFT ATRIUM, SEVERE MITRAL REGURGITATION, MILD AORTIC STENOSIS AND REGURGITATION, MODERATE TRICUSPID REGURGITATION, PULMONARY ARTERY HYPERTENSION WITH PRESSURE OF 55mmHg CHRONIC CORONARY ARTERY DISEASE WITH ELEVATED TROPONIN - SUPPORTIVE CARE ONLY AT THIS TIME TOBACCO ABUSE - PT NOT INTERESTED IN STOPPING SMOKING HIS CIGARS Pending Labs Laboratory Tests 03/20/20 05:29: White Blood Count 8.5, Red Blood Count 3.11, Hemoglobin 10.5, Hematocrit 31, Mean Corpuscular Volume 100, Mean Corpuscular Hemoglobin 34, Mean Corpuscular Hemoglobin Concent 34, Red Cell Distribution Width 14.4, Platelet Count 298, Mean Platelet Volume 9.0, Immature Granulocyte % (Auto) 0, Neutrophils (%) (Auto) 79, Lymphocytes (%) (Auto) 9, Monocytes (%) (Auto) 9, Eosinophils (%) (Auto) 3, Basophils (%) (Auto) 0, Neutrophils # (Auto) 6.7, Lymphocytes # (Auto) 0.8, Monocytes # (Auto) 0.7, Eosinophils # (Auto) 0.2, Basophils # (Auto) 0.0, Immature Granulocyte # (Auto) 0.0, Sodium Level 131, Potassium Level 4.0, Chloride Level 91, Carbon Dioxide Level 27, Anion Gap 13, Blood Urea Nitrogen 18, Creatinine 1.37, Estimat Glomerular Filtration Rate 50, BUN/Creatinine Ratio 13, Glucose Level 88, Calcium Level 8.6 Discharge Condition at discharge IMPROVED Instructions to patient/family Please see electronic discharge instructions given to patient. Discharge Medications Reviewed and agree with Discharge Medication list on patient's Discharge Instruction sheet Clinical Quality Measures DVT/VTE Risk/Contraindication: Risk Factor Score Per Nursin RFS Level Per Nursing on Admit: 4+=Very High CHARLES CULVER MD Mar 20, 2020 10:19
[2020-03-20] MEDS ORDERED: FURO40TA4 PO (10:33)
[2020-03-20] MEDS ORDERED: THIA100T80 PO (10:33)
[2020-03-20] MEDS ORDERED: POTA20TA8 PO (10:33)
[2020-03-20] MEDS ORDERED: Folic Acid PO (10:33)
--- NOTE | 2020-03-20 10:36 | Discharge Inst-Simple/Standard ---
Discharge Inst-Standard Reconcile Patient Problems Problems Reviewed?: Yes Discharge Medications New, Converted or Re-Newed RX: Transmitted to Pharmacy Patient Instructions/Follow Up Plan of Care/Instructions/FU: 1 wk follow up with [address]. tucker 2 wks with cardiology please avoid resuption of alcohol intake upon discharge Activity as Tolerated: Yes Discharge Diet: Regular Diet Return to The Hospital For: any concern for lifethreatening illness or injury any concern for worsening chest pain, shortness of breath Medication List: Active Scripts Active Klor-Con M20 (Potassium Chloride) 20 Meq Tab.er.prt 20 Meq PO UD take three days a week m// Vitamin B-1 (Thiamine HCl) 100 Mg Tablet 100 Mg PO DAILY@0700 [Folic Acid] 1 MG Tab 1 Mg PO DAILY Furosemide 40 Mg Tablet 20 Mg PO UD 1/2 of 40mg tab Mon/Sun/Fri, call MD if more than 3pound weight gain in 24 hrs for further direction on lasix dosing Reported Magnesium (Magnesium Oxide) 400 Mg Tablet 400 Mg PO DAILY Atorvastatin Calcium 40 Mg Tablet 40 Mg PO Q48H Famotidine 20 Mg Tablet 20 Mg PO BID Ranolazine ER (Ranolazine) 1,000 Mg Tab.er.12h 1,000 Mg PO BID Metoprolol Tartrate 50 Mg Tablet 50 Mg PO BID Fish Oil 1,000 mg Capsule ([place] 3 Polyunsat Fatty Acids) 1,000 Mg Cap 2,000 Mg PO DAILY Aspirin EC (Aspirin) 81 Mg Tablet. 81 Mg PO HS Acetaminophen Extra Strength (Acetaminophen) 500 Mg Tablet 1,000 Mg PO 0300 PRN Isosorbide Mononitrate ER (Isosorbide Mononitrate) 120 Mg Tab.er.24h 120 Mg PO 0300 Plavix (Clopidogrel Bisulfate) 75 Mg Tablet 75 Mg PO DAILY Centrum Men's Tablet (Multivits,Ca,Min/Iron/FA/Lycop) 1 Each Tablet 1 Tab PO DAILY Omeprazole 20 Mg Capsule. 20 Mg PO BID Lab results: Laboratory Tests Test 03/19/20 12:05 03/19/20 20:06 03/20/20 05:29 Range/Units Sodium Level 126 L 129 L 131 L 135-145 MMOL/L Potassium Level 3.9 4.0 4.0 3.6-5.0 MMOL/L Chloride Level 86 L 87 L 91 L 98-107 MMOL/L Carbon Dioxide Level 24 25 27 21-32 MMOL/L Anion Gap 16 H 17 H 13 5-14 MMOL/L Blood Urea Nitrogen 18 18 18 7-18 MG/DL Creatinine 1.37 H 1.39 H 1.37 H 0.60-1.30 MG/DL Estimat Glomerular Filtration Rate 50 49 50 BUN/Creatinine Ratio 13 13 13 Glucose Level 85 97 88 70-105 MG/DL Calcium Level 8.6 8.9 8.6 8.5-10.1 MG/DL White Blood Count 8.5 4.3-11.0 10^3/uL Red Blood Count 3.11 L 4.30-5.52 10^6/uL Hemoglobin 10.5 L 13.3-17.7 g/dL Hematocrit 31 L 40-54 % Mean Corpuscular Volume 100 H 80-99 fL Mean Corpuscular Hemoglobin 34 25-34 pg Mean Corpuscular Hemoglobin Concent 34 32-36 g/dL Red Cell Distribution Width 14.4 10.0-14.5 % Platelet Count 298 130-400 10^3/uL Mean Platelet Volume 9.0 9.0-12.2 fL Immature Granulocyte % (Auto) 0 % Neutrophils (%) (Auto) 79 H 42-75 % Lymphocytes (%) (Auto) 9 L 12-44 % Monocytes (%) (Auto) 9 0-12 % Eosinophils (%) (Auto) 3 0-10 % Basophils (%) (Auto) 0 0-10 % Neutrophils # (Auto) 6.7 1.8-7.8 10^3/uL Lymphocytes # (Auto) 0.8 L 1.0-4.0 10^3/uL Monocytes # (Auto) 0.7 0.0-1.0 10^3/uL Eosinophils # (Auto) 0.2 0.0-0.3 10^3/uL Basophils # (Auto) 0.0 0.0-0.1 10^3/uL Immature Granulocyte # (Auto) 0.0 0.0-0.1 10^3/uL My orders: Orders - CHARLES CULVER MD Pending Discharge Order (03/20/20 10:21) CAHRLES CULVER MD Mar 20, 2020 10:36
[2020-03-20 11:10] VITALS: BP 124/64
--- NOTE | 2020-03-20 11:16 | Physical Therapy Daily Note ---
PT Daily Note-Current Subjective Pt in bed, agreeable. No c/o this date, anxious to go home. Mental Status Patient Orientation: Person, Place, Time, Situation Attachments: IV Transfers SCALE: Activities may be completed with or without assistive devices. 2-Hsnrbymmkl-yqokqiw completes the activity by him/herself with no assistance from a helper. 5-Set-up or Clean-up Assistance-helper sets up or cleans up; patient completes activity. [place] assists only prior to or following the activity. 4-Supervision or Touching Assistance-helper provides verbal cues and/or touching/steadying and/or contact guard assistance as patient completes ac tivity. Assistance may be provided throughout the activity or intermittently. 3-Partial/Moderate Assistance-helper does LESS THAN HALF the effort. [place] lifts, holds or supports trunk or limbs, but provides less than half the effort. 2-Substantial/Maximal Assistance-helper does MORE THAN HALF the effort. [place] lifts or holds trunk or limbs and provides more than half the effort. 9-Ncidprgyl-xijdxs does ALL the effort. Patient does none of the effort to complete the activity. Or, the assistance of 2 or more helpers is required for the patient to complete the activity. If activity was not attempted, code reason: 7-Patient Refused. 9-Not Applicable-not attempted and the patient did not perform the activity before the current illness, exacerbation or injury. 10-Not Attempted due to Environmental Limitations-(lack of equipment, weather restraints, etc.). 88-Not Attempted due to Medical Conditions or Safety Concerns. Roll Left & Right (QC): 6 Sit to Lying (QC): 6 Lying to Sitting/Side of Bed(Q: 6 Sit to Stand (QC): 5 Weight Bearing Right Lower Extremity: Right Full Weight Bearing Left Lower Extremity: Left Full Weight Bearing Gait Training Does the Patient Walk?: Yes Distance: 200 Walk 10 feet (QC): 5 Walk 50 ft with 2 Turns(QC): 5 Walk 150 ft (QC): 5 Gait Persons Needed: 1 Gait Assistive Device: FWW Pt ambulated with slow but steady gait. No LOB. Pt did requests 3 standing rest breaks to catch his breath. Wheelchair Training Does the Pt Use a Wheelchair?: No Treatments Ambulation with FWW. Pt returned to bed with all needs met, in room. Assessment Current Status: Good Progress Pt tolerated well. Winded with ambulation but safe with standing rest breaks. Improved (I) with functional transfers this date. 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 Time Frame: Mar 26, 2020 Roll Left & Right (QC): 6 Sit to Lying (QC): 6 Lying-Sitting on Side/Bed(QC): 6 Sit to Stand (QC): 5 Chair/Ypd-hu-Xtwdq Xfer(QC): 5 Walk 10 feet (QC): 5 Walk 50ft with 2 Turns (QC): 5 Walk 150 ft (QC): 5 PT Plan Problem List Problem List: Activity Tolerance, Functional Strength, Safety, Balance, Gait, Transfer, Bed Mobility Treatment/Plan Treatment Plan: Continue Plan of Care Treatment Plan: Bed Mobility, Education, Functional Activity Davina, Functional Strength, Gait, Safety, Therapeutic Exercise, Transfers Treatment Duration: Mar 26, 2020 Frequency: 6 times per week Estimated Hrs Per Day: .25 hour per day Patient and/or Family Agrees t: Yes Time/GCodes Time In: 912 Time Out: 928 Total Billed Treatment Time: 16 Total Billed Treatment 1, FA x 16' JULIETA OROCZO DPT Mar 20, 2020 11:16
--- NOTE | 2020-03-20 15:34 | NUR ---
RN FAXED AND CALLED [facility]. DR STEVEN LET RN KNOW HE WROTE ORDER YESTERDAY AND THOUGHT IT WAS DONE AT THAT TIME. PT AWARE THAT VEST MAY NOT COME IN TODAY. PT STATES HE WANTS TO GO HOME TODAY AND WILL COME BACK AND GET THE VEST WHEN IT ARRIVES. DR STEVEN NOTIFIED OF THIS, AWAITING RESPONSE.
[2020-03-20 15:43] VITALS: BP 131/73
--- NOTE | 2020-03-20 16:34 | NUR ---
DR STEVEN SAID THAT HE CANNOT MAKE PT STAY TO WAIT FOR VEST BUT HE WOULD RECOMMEND IT. FLAQUITA COMMERCIAL LOAN SPECIALIST NOTIFIED BY THIS RN OF SITUATION AND SHE SAID THAT THE VESTS ARE TYPICALLY DELIVERED SAME DAY THEY ARE ORDERED UNLESS THERE IS ISSUES WITH INSURANCE. PT NOTIFIED OF BOTH WHAT AND FLAQUITA HAD SAID. WE DISCUSSED ABOUT HIM GOING HOME THEN POSSIBLY HAVING AN AL AND NOT GETTING BACK TO HOSPITAL IN TIME. HE VERBALIZED UNDERSTANDING AND SAID HE WILL WAIT. THIS NURSE LEAD ADVISOR TOLD HIM THAT I WOULD CHECK ON HIM AND LET HIM KNOW WHEN AND IF I KNEW ANY THING.
--- NOTE | 2020-03-20 17:10 | Cardiology Progress Note ---
Cardiology SOAP Progress Note Subjective: no significant cardiac complaints. Objective: I&O/Vital Signs 03/20/20 03/20/20 03/20/20 03/20/20 07:00 07:30 08:00 11:10 Temp 36.9 37.0 Pulse 66 68 60 Resp 16 18 B/P (MAP) 126/69 (88) 124/64 (84) Pulse Ox 96 94 O2 Delivery Room Air Room Air Room Air 03/20/20 03/20/20 12:37 15:43 Temp 36.2 Pulse 60 65 Resp 17 B/P (MAP) 131/73 (92) Pulse Ox 95 O2 Delivery Room Air 03/20/20 00:00 Intake Total 1400 ml Balance 1400 ml Weight (Pounds): 186 Weight (Ounces): 8.0 Weight (Calculated Kilograms): 84.138439 Constitutional: appears stated age, AAO x 3; No apparent distress; well- developed, well-nourished Respiratory: chest is bilaterally symmetric, lungs clear to auscultation Cardiovascular: regular rate-rhythm, S1 and S2; No diastolic murmur, No systolic murmur Gastrointestional: soft, audible bowel sounds; No spleenomegaly Extremities: normal range of motion, non-tender, normal inspection; No clubbing, No cyanosis; no lower extremity edema bilateral; No significant edema Neurologic/Psychiatric: no motor/sensory deficits, alert, normal mood/affect, oriented x 3, power is 5/5 both on sides Skin: normal color, warm/dry; No rash, No ulcerations Results/Procedures: Labs Laboratory Tests 03/19/20 20:06: Sodium Level 129L, Potassium Level 4.0, Chloride Level 87L, Carbon Dioxide Level 25, Anion Gap 17H, Blood Urea Nitrogen 18, Creatinine 1.39H, Estimat Glomerular Filtration Rate 49, BUN/Creatinine Ratio 13, Glucose Level 97, Calcium Level 8.9 03/20/20 05:29: Sodium Level 131L, Potassium Level 4.0, Chloride Level 91L, Carbon Dioxide Level 27, Anion Gap 13, Blood Urea Nitrogen 18, Creatinine 1.37H, Estimat Glomerular Filtration Rate 50, BUN/Creatinine Ratio 13, Glucose Level 88, Calcium Level 8.6, White Blood Count 8.5, Red Blood Count 3.11L, Hemoglobin 10.5L, Hematocrit 31L, Mean Corpuscular Volume 100H, Mean Corpuscular Hemoglobin 34, Mean Corpuscular Hemoglobin Concent 34, Red Cell Distribution Width 14.4, Platelet Count 298, Mean Platelet Volume 9.0, Immature Granulocyte % (Auto) 0, Neutrophils (%) (Auto) 79H, Lymphocytes (%) (Auto) 9L, Monocytes (%) (Auto) 9, Eosinophils (%) (Auto) 3, Basophils (%) (Auto) 0, Neutrophils # (Auto) 6.7, Lymphocytes # (Auto) 0.8L, Monocytes # (Auto) 0.7, Eosinophils # (Auto) 0.2, Basophils # (Auto) 0.0, Immature Granulocyte # (Auto) 0.0 Microbiology 03/18/20 Urine Culture - Final, Complete NO GROWTH A/P: Assessment/Dx: Generalized weakness, Active smoking, Active alcohol use, Hyponatremia, Hypokalemia, Acute kidney injury, Positive cardiac enzymes, Anemia, Elevated LFTs Plan: Generalized weakness: Could be multifactorial including electrolyte abnormalities, acute kidney injury, possible cardiac etiology. Active smoking: Smoking cessation is strongly recommended. Active alcohol use: Moderation is recommended. Hyponatremia, current sodium is 127. According to Dr. Gonzales this is chronic. Likely due to chronic alcoholism. Hypokalemia, defer to the primary team. Acute kidney injury, could be secondary to dehydration. I agree with gentle fluids. Positive cardiac enzymes, patient does have history of CAD, CABG. Acute inferior STEMI in November 2018 which was complicated by coronary perforation and w as transferred to [facility] for further management. Borderline positive troponin. We'll perform serial troponin and echocardiogram. Echocardiogram shows EF of 25-30 percent. Likely ischemic cardiomyopathy. LifeVest is recommended for primary prevention of sudden cardiac . follow- up with outpatient stockroom clerk on discharge. We're still waiting for the L ifeVest. Previous history: Coronary artery disease with a history of coronary artery bypass surgery consisting of left internal mammary artery graft to left anterior descending artery, saphenous vein graft to right coronary artery, saphenous vein graft to diagonal artery, saphenous vein graft to first obtuse marginal artery, saphenous vein graft to second obtuse marginal artery in 1999. Senting of prox LCX in November 2016 after he had presented with ac NSTEMI CAD: Cardiac cath of May 23, 2017: Coronary artery disease primarily consisting of mid vessel occlusions of the left anterior descending artery, ostial occlusion of an obtuse marginal system of the left circumflex artery, ostial and proximal occlusion of the right coronary artery. Two out of four saphenous vein grafts are occluded. One saphenous vein graft to obtuse marginal was widely patent. Another saphenous vein graft to posterior descending branch of the right coronary artery had 90% stenosis at its insertion to which successful balloon angioplasty was carried out which reduced the 90% stenosis to approximately 50% residual. The proximal portion of the left circumflex artery has a widely patent stent that this is known to be a Resolute 2.5 x 22 mm stent that was placed in 11/2016. Most recent cardiac cath of 08-28-17: A 90% stenosis at the site of insertion of the saphenous vein graft into the posterior descending branch treated successfully with balloon angioplasty and subsequent stenting with Alpine Xience 2.25 x 18 mm stent. Hypertension, controlled. Hyperlipidemia being treated with statin therapy Diabetes mellitus, type II. Gastroesophageal reflux. Carotid arterial disease, mild, per ultrasonography of June 2017 Complicated patient as above. Thank you for your consultation. Please call me if you have any questions. Ankit Carmen MD, FACP, FACC, FSCAI, FHRS, CCDS Interventional Cardiology Cardiac Electrophysiology Vascular Medicine and Endovascular Interventions Nila CARMEN MD Mar 20, 2020 17:10
--- NOTE | 2020-03-20 17:30 | NUR ---
Care of patient assumed by this RN at this time. Report received from BELLE Cordova.
[2020-03-21] MEDS: ISOSORBIDE MONONITRATE 60 MG (IMDUR) TAB PO SCH (03:30)
[2020-03-21 03:31] VITALS: BP 109/59
[2020-03-21] MEDS: MULTIVIT W/MINERALS TAB (THERAGRAN M) PO SCH (06:30)
[2020-03-21] MEDS: KCL 20 MEQ TAB (K-DUR) PO SCH (06:30)
[2020-03-21] MEDS: THIAMINE 100 MG (VITAMIN B-1) TAB PO SCH (06:30)
[2020-03-21 07:22] VITALS: BP 123/73
[2020-03-21] MEDS: MAGNESIUM OXIDE (MAG-OX)400 MG TAB PO SCH (08:06)
[2020-03-21] MEDS: FOLIC ACID 1 MG TAB PO SCH (08:06)
[2020-03-21] MEDS: CLOPIDOGREL 75 MG (PLAVIX) TABLET PO SCH (08:07)
[2020-03-21] MEDS: meTOprolol TARTRATE 50 MG (LOPRESSOR) TAB PO SCH (08:07)
[2020-03-21] MEDS: RANOLAZINE ER 500 MG TAB (RANEXA) PO SCH (08:07)
[2020-03-21] MEDS ORDERED: FAMOTIDINE 20 MG (PEPCID) TABLET PO SCH (09:00)
[2020-03-21] MEDS: SODIUM CHLORIDE 3% 500 ML IV SCH (09:12)
[2020-03-21 11:27] VITALS: BP 118/82
--- NOTE | 2020-03-21 13:27 | NUR ---
DR. BRANDT HERE AND TALKED WITH PT. THE RISKS OF GOING HOME WITHOUT THE LIFE VEST. PT. STATES "I'M WILLING TO TAKE THE RISK TO GO HOME. I KNOW ANYTHING COULD HAPPEN." INSTRUCTED PT. CALLED LOCAL REP. PINO CUENCA, THE LIFE VEST WILL BE DELIVERED TO HIS HOUSE AT ABOUT 8AM PER PINO CUENCA VERBAL STATEMENT TO THIS NURSE.
[2020-03-21 14:30] VITALS: BP 118/82
--- NOTE | 2020-03-21 14:30 | NUR ---
SEVERO BELL demonstrates understanding of discharge instructions and accurately returns instructions upon questioning. Copy of Post-Discharge Instructions given to PT. SEVERO BELL is able to manage continuing needs after discharge. Patients belongings returned to PT. Patient discharged from [facility] on 03/21/20 at 1430. SEVERO BELL left floor via W/C, accompanied by STAFF AND PER AUTO.
--- NOTE | 2020-03-21 15:39 | Cardiology Progress Note ---
Cardiology SOAP Progress Note Subjective: no cardiac complaints. Objective: I&O/Vital Signs 03/21/20 03/21/20 03/21/20 03/21/20 07:00 07:22 08:00 11:27 Temp 36.6 36.4 Pulse 65 65 67 Resp 16 18 B/P (MAP) 123/73 (90) 118/82 (94) Pulse Ox 97 96 O2 Delivery Room Air Room Air Room Air 03/21/20 03/21/20 12:30 14:30 Temp 36.4 Pulse 57 57 Resp 18 B/P (MAP) 118/82 Pulse Ox 96 O2 Delivery Room Air 03/21/20 00:00 Intake Total 1420 ml Balance 1420 ml Weight (Pounds): 186 Weight (Ounces): 8.0 Weight (Calculated Kilograms): 84.473796 Constitutional: appears stated age, AAO x 3; No apparent distress; well- developed, well-nourished Respiratory: chest is bilaterally symmetric, lungs clear to auscultation Cardiovascular: regular rate-rhythm, S1 and S2; No diastolic murmur, No systolic murmur Gastrointestional: soft, audible bowel sounds; No spleenomegaly Extremities: normal range of motion, non-tender, normal inspection; No clubbing, No cyanosis; no lower extremity edema bilateral; No significant edema Neurologic/Psychiatric: no motor/sensory deficits, alert, normal mood/affect, oriented x 3, power is 5/5 both on sides Skin: normal color, warm/dry; No rash, No ulcerations Results/Procedures: Labs Microbiology 03/18/20 Urine Culture - Final, Complete NO GROWTH A/P: Assessment/Dx: Generalized weakness, severe cardiomyopathy Active smoking, Active alcohol use, Hyponatremia, Hypokalemia, Acute kidney injury, Positive cardiac enzymes, Anemia, Elevated LFTs Plan: Generalized weakness: Could be multifactorial including electrolyte abnormalities, acute kidney injury, possible cardiac etiology. Active smoking: Smoking cessation is strongly recommended. Active alcohol use: Moderation is recommended. Hyponatremia, current sodium is 127. According to Dr. Gonzales this is chronic. Likely due to chronic alcoholism. Hypokalemia, defer to the primary team. Acute kidney injury, could be secondary to dehydration. I agree with gentle fluids. Positive cardiac enzymes, patient does have history of CAD, CABG. Acute inferior STEMI in November 2018 which was complicated by coronary perforation and was transferred to [facility] for further management. Borderline positive troponin. We'll perform serial troponin and echocardiogram. Echocardiogram shows EF of 25-30 percent. Likely ischemic cardiomyopathy. LifeVest is recommended for primary prevention of sudden cardiac . follow- up with outpatient learning disabilities teacher on discharge. LifeVest will be placed by the [employer] tomorrow a.m.however the patientdoes not want to stay in the hospital overnight. I discussed at lengththe risks of sudden cardiac but he is willing to take the risk and wants to be discharged from the hospital. We will arrange for the LifeVest rep to go to his home and provide the lifevest. Previous history: Coronary artery disease with a history of coronary artery bypass surgery consisting of left internal mammary artery graft to left anterior descending artery, saphenous vein graft to right coronary artery, saphenous vein graft to diagonal artery, saphenous vein graft to first obtuse marginal artery, saphenous vein graft to second obtuse marginal artery in 1999. Senting of prox LCX in November 2016 after he had presented with ac NSTEMI CAD: Cardiac cath of May 23, 2017: Coronary artery disease primarily consisting of mid vessel occlusions of the left anterior descending artery, ostial occlusion of an obtuse marginal system of the left circumflex artery, ostial and proximal occlusion of the right coronary artery. Two out of four saphenous vein grafts are occluded. One saphenous vein graft to obtuse marginal was widely patent. Another saphenous vein graft to posterior descending branch of the right coronary artery had 90% stenosis at its insertion to which successful balloon angioplasty was carried out which reduced the 90% stenosis to approximately 50% residual. The proximal portion of the left circumflex artery has a widely patent stent that this is known to be a Resolute 2.5 x 22 mm stent that was placed in 11/2016. Most recent cardiac cath of 08-28-17: A 90% stenosis at the site of insertion of the saphenous vein graft into the posterior descending branch treated successfully with balloon angioplasty and subsequent stenting with Alpine Xience 2.25 x 18 mm stent. Hypertension, controlled. Hyperlipidemia being treated with statin therapy Diabetes mellitus, type II. Gastroesophageal reflux. Carotid arterial disease, mild, per ultrasonography of June 2017 Complicated patient as above. Thank you for your consultation. Please call me if you have any questions. Ankit Carmen MD, FACP, FACC, FSCAI, FHRS, CCDS Interventional Cardiology Cardiac Electrophysiology Vascular Medicine and Endovascular Interventions Nila CARMEN MD Mar 21, 2020 15:39
== END 2020-03-21 14:30 | disposition home or self-care (01) ==
LOC: ER 09:59 → EDUNIT# 09:59 → 4TH 12:41
PROVIDERS: ADMIT Family Medicine; ATTEND Family Medicine
DX: I13.0 Hypertensive heart and chronic kidney disease with heart failure and stage 1 through stage 4 chronic kidney disease, or unspecified chronic kidney disease (principal); N17.0 Acute kidney failure with tubular necrosis; N18.3 Chronic kidney disease, stage 3 (moderate); I50.32 Chronic diastolic (congestive) heart failure; E87.6 Hypokalemia; I25.10 Atherosclerotic heart disease of native coronary artery without angina pectoris; F10.20 Alcohol dependence, uncomplicated; E87.1 Hypo-osmolality and hyponatremia; I12.9 Hypertensive chronic kidney disease with stage 1 through stage 4 chronic kidney disease, or unspecified chronic kidney disease; J44.9 Chronic obstructive pulmonary disease, unspecified; K21.9 Gastro-esophageal reflux disease without esophagitis; G89.29 Other chronic pain; M54.5 Low back pain; E11.22 Type 2 diabetes mellitus with diabetic chronic kidney disease; E78.5 Hyperlipidemia, unspecified; I65.29 Occlusion and stenosis of unspecified carotid artery; D64.9 Anemia, unspecified; R53.1 Weakness; F17.210 Nicotine dependence, cigarettes, uncomplicated; Z79.82 Long term (current) use of aspirin; Z79.84 Long term (current) use of oral hypoglycemic drugs; Z79.899 Other long term (current) drug therapy; Z88.0 Allergy status to penicillin; Z88.8 Allergy status to other drugs, medicaments and biological substances; Z95.5 Presence of coronary angioplasty implant and graft
CPT/HCPCS: 71045; 80048 ×2; 80053; 81000; 82550; 83735 ×2; 83880 ×2; 84443; 84484; 85025 ×3; 86141; 87088; 93005; 93041; 93306; 97161; 97530; 99284; G0378; G0480; 36415; 80320; 90662

== ENCOUNTER 2020-04-07 09:45 | Inpatient (IN) | payer MEDICARE ==
[~2020-04-07] VITALS: Ht 78.1 cm; Wt 84.0 kg
[~2020-04-07 09:45] MED LIST changes: +ACETAMINOPHEN 325 MG TABLET PO PRN; +ALPRAZolam 0.25 MG (XANAX) TAB PO PRN; +AMLO-250 PO; -AMLO5TAB9 PO; +ASPI-1238 PO; +ATOR40TA70 PO; +BISACODYL 10 MG SUPP (DULCOLAX) PR PRN; +CALCIUM CARBONATE 500 MG (TUMS) TAB.CHEW PO PRN; +DOCUSATE SODIUM 100 MG (COLACE) CAP PO PRN; +FAMO20TA5 PO; +FLEET ENEMA ADULT 1 EA BTL PR PRN; +FURO40TA4 PO; +Folic Acid PO; +LACTULOSE SYRUP 10GM/15ML (ENULOSE) 30ML UDC PO PRN; +LOPERAMIDE 2 MG (IMODIUM) TABLET PO PRN; +MAGN400T39 PO; +METO50TA15 PO; +OMG1KC PO; +ONDANSETRON 4 MG (ZOFRAN) ORAL DISSOLVE TAB PO PRN; +POTA20TA8 PO; +RANO10005 PO; +THIA100T80 PO; +diphenhydrAMINE 25 MG TAB (BENADRYL) PO PRN; +guaiFENesin/CODEINE (ROBITUSSIN AC) 10ML UDC PO PRN
--- NOTE | 2020-04-07 09:45 | NUR ---
SEVERO BELL admitted to room 227, with an admitting diagnosis of DEBILITY, on 04-07-20 from HOME via PRIVATE VEHICLE, accompanied by STAFF.SEVERO BELL introduced to surroundings, call light, bed controls, phone, TV, temperature control, lights, meal times, smoking policy, visitor policy, side rail policy, bathrooms and showers. Patient Rights given to patient in the handbook.SEVERO BELL verbalizes understanding that [facility] is not responsible for the loss or damage to any personal effects or valuables that are kept in the patients posession during their hospitalization. The following Patient Care Plans were discussed with the PT: Discharge Planning,IMPAIRED MOBILITY AND FALLS. SEVERO BELL verbalizes understanding of Interdisciplinary Patient Education. Patient received Patient Rights Booklet, which includes Privacy Act Statement and Data Collection Information Summary. PLEASANT AND COOPERATIVE. DENIES PAIN.
[2020-04-07] MEDS ORDERED: THIA100T80 PO (10:09)
[2020-04-07] MEDS ORDERED: FOLIC ACID PO (10:09)
[2020-04-07] MEDS ORDERED: POTA20TA15 PO (10:09)
[2020-04-07] MEDS ORDERED: FURO40TA4 PO (10:09)
[2020-04-07] MEDS ORDERED: METO5TAB2 PO (10:09)
--- NOTE | 2020-04-07 10:10 | NUR ---
THE MED REC WAS ENTERED USING A DETAILED MEDICATION LIST FROM THE PTS , AND I ALSO LOOKED BACK AT PREVIOUS NOTES TO GET A BETTER UNDERSTANDING OF THE MED LIST I HAD COMPLETED THE MED REC DURING THE PTS LAST ADMISSION ON 03-18-2020 AND AT THAT TIME I WAS TOLD THE FOLLOWING MEDICATIONS HAD BEEN DISCONTINUED: METOLAZONE 2.5MG, ENALAPRIL 10MG, METFORMIN 500MG, AMLODIPINE 5MG AND COREG 6.25MG POTASSIUM 20MEQ AND FUROSEMIDE 40MG BOTH HAVE DIRECTIONS OF 1 TAB DAILY, HOWEVER ON BOTH THESE MEDICATIONS THE PT ONLY TAKES TAB OF EACH ON MON,WED,FRI
--- NOTE | 2020-04-07 10:52 | PM&R Post Admission Assessment ---
PM&R HP Date of Visit: Apr 07, 2020 Time of Visit: 10:50 History of Present Illness CC: Severe debility due to CHF and CAD HPI: This is a 79yoWM clinic patient of Dr Adan Wright who was referred by [facility] due to failing at home care after a hospital stay at [facility] for cardiac issues. He remains with a lifevest and Cardiology has been consulted. Patient is very weak. PLOF was independent without the use of AD prior to hospital admit. Patient denies using O2 at home. HPI: This is a 79yoWM clinic Pt of Dr. Adan Gonzales who was hospitalized at [facility] from 03/18-03/22 with dehydration and weakness acute renal failure, with a history of alcohol abuse, with elevated Troponin who has bee receiving home health care and referred due to increased weakness and home PT not being enough. At this current time Pt reports his bowels are moving, he does not use Oxygen at home and is struggling with profound weakness. Dr. Broderick has been consulted for cardiology care and we will be monitoring Pt closely due to severe debility. CC: Recurrent Worsening Weakness HPI: Kwesi Carrero is a 79 y/o male who presents to rehab for recurrent generalized weakness onset 2 weeks ago. Patient was seen in late January for hyperkalemia and acute kidney failure for which he was transferred to hospital for management. Patient was then discharged home for PT/OT with [facility] and, per , was doing well for a few weeks. Patient subsequently started feeling weaker and was admitted to [facility] (03/18-03/21) for dehydration, electrolyte abnormalities and possible acute on chronic diastolic CHF. Patient was revealed to have elevated BNP, elevated Cr, low Potassium, and chronic hyponatremia likely related to EtOH use. Patient was discharged again with PT and home RN care, but now feels as though his weakness is again getting worse over the last 2 weeks. Patient requested to be seen in the [facility] rehab unit for more intensive serves as well as cardiac monitoring. ROS: General: no fever, no chills HEENT: no headache, no eye pain Cardiac: RRR, no murmurs appreciated (note: difficult to auscultate due to life vest) Respiratory: crackles in lung bases, no wheezes GI: no abdominal pain, no vomiting, no diarrhea Urinary: no blood in urine, no change in frequency Extremities: no pain, 2+ pitting edema in bilateral lower extremities Neuro: no dizziness, no LOC PMH: -CAD -HTN -HLD -DM -STEMI (2019) -Cataracts -Chronic edema/swelling -subdural/Subarachnoid bleed (11/20/18) -Chronic hyponatremia -congenital unilateral agenesis -chronic ethanol user Family Hx: -COPD (father) -IN (mother) -CVA Social Hx: -Current everyday smoker: Cigars -Current everyday drinker: [place] Surgical Hx: -Cardiac catheterization x4 -Stent placement x2 -5 vessel CABG -cholecystectomy Allergies: -Peniciliins (unknown reaction) -Nitroglycerin (unknown reaction, no reaction recorded when administered in ER) Medications: -Acetominophen -Aspirin -Atorvastatin -Clopidogrel -Famitodine -Furosemide -Isosorbide mononitrate (in ER) -Magnesium Oxide -Metochlopramide -Metoprolol -[place] 3 FAs -Potassium Chloride -Ranolazine -Thiamine -Folic Acid Physical Exam: -General: Well appearing, WD/WN, sitting and talking comfortably -Head: No ecchymosis, no tenderness -Eyes: PERRL, EOMI -Nose: nares patent, no lesions -Heart: No appreciable murmurs (note: limited due to life vest), regular rate -Lungs: CTAB, no accessory muscle use, no respiratory distress -Abdomen: soft, nontender, nondistended -Extremities: normal peripheral pulses, 2+ pitting pedal edema -Neuro/Psych: alert, oriented Assessment/Plan: General -Debility: managed by PT/OT -Consult cardiology -Consult general surgery Rehab: patient will work on returning to [facility] in terms of -Standing balance -Transfers -Walking: patient shows fatigue with 150ft distance -Bed mobility: rolling over, lying to sitting, sitting to standing -Functional Strength/Stamina: patient has noticable fatigue with activity -Bathing: difficulties noted especially with cleaning lower half -Dressing self, especially lower half -Toileting Hygiene: difficulty cleaning lower half Past Eguuyet-Ytgnvb-Luyzcz Hx Past Med/Social Hx: Reviewed Nursing Past Med/Soc Hx, Reviewed and Corrections made Patient Social History Marrital Status: Employed/Student: retired ([employer]) Alcohol Beverage of Choice: [place] Smoking Status: Former Smoker (quit 2 weeks ago) Type Used: Cigars 2nd Hand Smoke Exposure: Yes Recent Hopitalizations: No Immunizations Up To Date Tetanus Booster (TDap): Unknown Pediatric: No Date of Pneumonia Vaccine: Apr 25, 2014 Date of Influenza Vaccine: Mar 26, 2020 Seasonal Allergies Seasonal Allergies: No Past Medical History Surgeries: Cardiac, CABG, Coronary Stent, Gallbladder Respiratory: COPD, Pneumonia Currently Using CPAP: No Currently Using BIPAP: No Cardiac: Chronic Edema/Swelling, Coronary Artery Disease, Heart Attack, High Cholesterol, Hypertension Reproductive: No Sexually Transmitted Disease: No HIV/AIDS: No Gastrointestinal: Gastroesophageal Reflux Musculoskeletal: Chronic Back Pain Endocrine: Diabetes, Non-Insulin dep HEENT: Cataract Loss of Vision: Denies Hearing Impairment: Denies History of Blood Disorders: No Adverse Reaction to Blood Topete: No Family History FH: COPD (chronic obstructive pulmonary disease) 19 FATHER Myocardial infarction 19 MOTHER PM&R Allergy/Meds/Data Review Allergies Coded Allergies: Penicillins (Verified Allergy, Unknown, 03/18/20) nitroglycerin (Verified Allergy, Unknown, 03/18/20) Home Medications Scheduled Aspirin (Aspirin EC), 81 MG PO HS, (Reported) Atorvastatin Calcium (Atorvastatin Calcium), 40 MG PO Q48H, (Reported) Clopidogrel Bisulfate (Plavix), 75 MG PO DAILY, (Reported) Famotidine (Famotidine), 20 MG PO BID, (Reported) Furosemide (Furosemide), 20 MG PO MO,WE,FR, (Reported) Isosorbide Mononitrate (Isosorbide Mononitrate ER), 120 MG PO 0300, (Reported) Magnesium Oxide (Magnesium), 400 MG PO DAILY, (Reported) Metoprolol Tartrate (Metoprolol Tartrate), 50 MG PO BID, (Reported) Multivits,Ca,Min/Iron/FA/Lycop (Centrum Men's Tablet), 1 TAB PO DAILY, (Re ported) [place] 3 Polyunsat Fatty Acids (Fish Oil 1,000 mg Capsule), 1,000 MG PO BID, (Reported) Potassium Chloride (Potassium Chloride), 10 MEQ PO MON,WE,FR, (Reported) Ranolazine (Ranolazine ER), 1,000 MG PO BID, (Reported) Thiamine HCl (Vitamin B-1), 100 MG PO DAILY, (Reported) [Folic Acid], 1 MG PO DAILY, (Reported) Scheduled PRN Acetaminophen (Acetaminophen Extra Strength), 1,000 MG PO 0300 PRN for PAIN- MILD, (Reported) Metoclopramide HCl (Metoclopramide HCl), 5 MG PO BID PRN for NAUSEA/VOMITING-3RD LINE, (Reported) Discontinued Medications Furosemide (Furosemide), 20 MG PO UD Discontinued Reason: Duplicate Order Potassium Chloride (Klor-Con M20), 20 MEQ PO UD Discontinued Reason: Duplicate Order Thiamine HCl (Vitamin B-1), 100 MG PO DAILY@0700 Discontinued Reason: Duplicate Order [Folic Acid], 1 MG PO DAILY Discontinued Reason: Duplicate Order Current Medications Current Medications Reviewed Review of Systems Constitutional: see HPI, malaise, weakness EENTM: no symptoms reported Respiratory: dyspnea on exertion, short of breath Cardiovascular: no symptoms reported Gastrointestinal: no symptoms reported Genitourinary: no symptoms reported Musculoskeletal: back pain, joint pain Skin: no symptoms reported Psychiatric/Neurological: Depressed All Other Systems Reviewed Negative Unless Noted: Yes Physical Exam Physical Exam Vital Signs Capillary Refill : Height, Weight, BMI Height: 5'9.00" Weight: 186lbs. 8.0oz. [phone]; 24.48 BMI Method:Stated General Appearance: No Apparent Distress, WD/WN, Chronically ill Eyes: Bilateral Eye Normal Inspection, Bilateral Eye PERRL HEENT: PERRL/EOMI, Normal ENT Inspection, Pharynx Normal Neck: Full Range of Motion, Normal Inspection, Non Tender, Supple, Carotid Bruit Respiratory: Chest Non Tender, Lungs Clear, No Accessory Muscle Use, No Respiratory Distress, Decreased Breath Sounds Cardiovascular: Regular Rate, Rhythm, No Edema, No Gallop, No JVD, No Murmur, Normal Peripheral Pulses Gastrointestinal: Normal Bowel Sounds, No Organomegaly, No Pulsatile Mass, Non Tender, Soft Back: Normal Inspection, No CVA Tenderness, No Vertebral Tenderness Extremity: Normal Capillary Refill, Normal Inspection, Normal Range of Motion, Non Tender, No Calf Tenderness, No Pedal Edema Neurologic/Psychiatric: Alert, Oriented x3, No Motor/Sensory Deficits, 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 Norm as Tested, Abnormal Gait, Depressed Affect, Motor Weakness (generalized all extremities) Skin: Normal Color, Warm/Dry Lymphatic: No Adenopathy PM&R Medical Assessment & Plan REHAB/MEDICAL ASSESSMENT AND PLAN: REHAB IMPAIRMENT GROUP: 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 ETIOLOGIC DIAGNOSIS: 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 The comorbidities that impact the patients function and/or functional outcome by: smoker, advanced CAD and cardiomyopathy, severe weakness REHAB PLAN: The patient is being admitted to our comprehensive inpatient rehabilitation facility and can tolerate the intensity of service consisting of at least: 180 minutes of therapy a day, 5 out of 7 days a week Rehab treatment will consist of: PT OT will focus on regaining strength and function in ADL independence along with energy conservation in order to return home to independent living The patient/family has a good understanding of our discharge process and will benefit from an interdisciplinary inpatient rehabilitation program. The patient has potential to make improvement and is in need of at least two of the following multidisciplinary therapies including but not limited to physical, occupational, speech, and prosthetics and orthotics. Additionally the patient will need services from respiratory, nutritional services, wound care, psychology, etc. (Customize this to each patient). Given the patients complex condition and risk of further medical complications, rehabilitation services cannot be safely or effectively provided at a lower level of care such as a [facility] facility. BARRIERS TO DISCHARGE: Severe debility ESTIMATED LOS: 10 days DISPOSITION: Home RELEVANT CHANGES SINCE PREADMISSION SCREENING: I have compared the patients medical and functional status at the time of the preadmission screening and there are: no changes PROGNOSIS: Guarded REHABILITATION GOALS: 1. PT OT will focus on regaining strength and function in ADL independence along with energy conservation in order to return home to independent living All the above goals were reviewed with the patient and he/she is in agreement. By signing this document, I acknowledge that I have personally performed a full physical examination on this patient within 24 hours of admission to this inpatient rehabilitation facility and have determined the patient to be able to tolerate the above course of treatment at an intensive level for a reasonable period of time. I will be completing a detailed individualized Plan of Care for this patient by day #4 of the patients stay based upon the Preadmission Screen, the Post-Admission Evaluation, and the therapy evaluations. Admission Dx/Comorbidities: (1) Debility ICD Codes: R53.81 - Other malaise (2) Acute on chronic kidney failure ICD Codes: N17.9 - Acute kidney failure, unspecified; N18.9 - Chronic kidney disease, unspecified (3) Alcohol dependence, daily use Status: Acute ICD Codes: F10.20 - Alcohol dependence, uncomplicated (4) HTN (hypertension) Status: Acute ICD Codes: I10 - Essential (primary) hypertension (5) CAD (coronary artery disease) ICD Codes: I25.10 - Atherosclerotic heart disease of [place] coronary artery without angina pectoris (6) Hypokalemia ICD Codes: E87.6 - Hypokalemia (7) Status post fall Status: Acute ICD Codes: Z91.81 - History of falling (8) STEMI (ST elevation myocardial infarction) Status: Acute ICD Codes: I21.3 - ST elevation (STEMI) myocardial infarction of unspecified site (9) Hypomagnesemia ICD Codes: E83.42 - Hypomagnesemia (10) Multifocal PVCs Status: Acute ICD Codes: I49.3 - Ventricular premature depolarization (11) PAD (peripheral artery disease) ICD Codes: I73.9 - Peripheral vascular disease, unspecified (12) Weakness Status: Acute ICD Codes: R53.1 - Weakness (13) Renal insufficiency Status: Acute ICD Codes: N28.9 - Disorder of kidney and ureter, unspecified (14) CHF (congestive heart failure) Status: Acute ICD Codes: I50.9 - Heart failure, unspecified Assessment/Plan Assessment and Plan Assess & Plan/Chief Complaint Assessment: Debility with myopathy CHF on lifevest HTN CRI HTN HLP Smoker ETOHism Hypoxia Plan: Monitor creatinine Cardiology consult Monitor pain IRF protocol CODI HERCULES DO Apr 07, 2020 10:52
--- NOTE | 2020-04-07 11:21 | Occupational Therapy Eval ---
OT Evaluation-General/PLF Medical Diagnosis Admission Date Apr 07, 2020 at 09:45 Medical Diagnosis: debility Onset Date: Mar 24, 2020 Therapy Diagnosis Therapy Diagnosis: Decreased ADL status Height/Weight Height (Feet): 5 Height (Inches): 9.00 Weight (Pounds): 186 Weight (Ounces): 8.0 Weight Bear Status Weight Bearing Restriction: Weight Bearing/Tolerated Referral Physician: Ana Referral Reason: Self Care, Evaluation/Treatment, Strengthening/ROM Medical History Additional Medical History [facility] 03/18-03/22 for dehydration, weakness, kidney failure, hypokalemia, CAD, alcohol dependence (daily use), hyponatremia, weakness, elevated troponin Current History Increasing weakness previous 2 weeks. Pt states was completed round of Lasix due to increased BLE swelling- lost 19 lbs total per pt and since has felt weak/ not taking steps. Reviewed History: Yes Social History Home: Single Level Current Living Status: Spouse Entry Into Home: Ramp ADL-Prior Level of Function SCALE: Activities may be completed with or without assistive devices. 1-Fpvacznggo-[id number] completes the activity by him/herself with no assistance from a helper. 5-Set-up or Clean-up Assistance-helper sets up or cleans up; patient completes activity. [place] assists only prior to or following the activity. 4-Supervision or Touching Assistance-helper provides verbal cues and/or touching/steadying and/or contact guard assistance as patient completes activity. Assistance may be provided throughout the activity or intermittently. 3-Partial/Moderate Assistance-helper does LESS THAN HALF the effort. [place] lifts, holds or supports trunk or limbs, but provides less than half the effort. 2-Substantial/Maximal Assistance-helper does MORE THAN HALF the effort. [place] lifts or holds trunk or limbs and provides more than half the effort. 8-Vhtcpkjdq-giddch does ALL the effort. Patient does none of the effort to complete the activity. Or, the assistance of 2 or more helpers is required for the patient to complete the activity. If activity was not attempted, code reason: 7-Patient Refused. 9-Not Applicable-not attempted and the patient did not perform the activity before the current illness, exacerbation or injury. 10-Not Attempted due to Environmental Limitations-(lack of equipment, weather restraints, etc.). 88-Not Attempted due to Medical Conditions or Safety Concerns. ADL PLOF Comments Pt was IND with use of SPC. 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 Pt is brought in by son/ . No car transfer witnessed. Pt in w/c and pushed to ARU by OT. Pt denies pain, alert/ oriented and pleasant. Pt agrees to OT eval/ treat. OT individual tx; [id number] (30) PT eval: [id number] OT/PT [id number] (20): [place]: OT addresses fx ADLs, balance, UE movement and sequencing while PT addresses LE movement, balance, gait, fx endurance. Mental Status/Objective Patient Orientation: Person, Place, Situation, Normal For Age Current Glasses/Contacts: Yes Hearing Aids: No Dentures/Partials: Yes Hand Dominance: Right Upper Extremity ROM WFL BUE Upper Extremity Coordination WFL BUE Upper Extremity Sensation WFL BUE Upper Extremity Strength Decreased (3+/5 bilateral shoulder flexion, 4/5 biceps, moderate grasp BUE) Edema: pitting bilaterally (extends proximally into shins) ADL-Treatment Eating (QC): 6 Oral Hygiene (QC): 6 (IND in sit per clinical judgment) Shower/Bathe Self (QC): 3 (mod A: assist with bottom cleansing in stance- pt requires assist for stance, unable to bring hands from walker to pull pants down.) Upper Body Dressing (QC): 3 (min A doffing shirt, pt dons IND. Pt has life vest, requires min A placing ) Lower Body Dressing (QC): 7 (denies washing further LB, does not complete LB dressing.) On/Off Footwear (QC): 6 (completes socks/ shoes with IND in chair.) Toileting Hygiene (QC): 2 (max A bottom hygiene: mod A sit to stand and stands, assist with pulling down pants and wiping bottom.) Other Treatments Pt brought to ARU by w/c, pt educated on ARU standards and OT role. Pts goals to increase fx ambulation and walking and to complete ADLs with higher IND. Pt completes sit to stand with mod A, takes 3 steps with walker and sits with control on chair. Pt completes UB/ bottom sponge bath. Pt able to complete UB washing, min A doffing shirt, pt able to don shirt, pt requires assist with battery placement in life vest. Pt able to manipulate phone and problem solve with min A to call to get a different pair of glasses. Pt sit to stand mod A with cues for hand placement. Pt stands at walker level, able to take one hand from walker minimally, decreased balance. Pt's pants assisted down and bottom cleansed. Pt requests immediate sit, sits with control. Pt completes shoe/ sock don/ doffing. pt sit to stand with mod A with raised chair, ambulates to bed; after ~4 steps becomes progressively fatigued and requires immediate sit. Sits EOB and requires OT/ PT to assist reaching safe position EOB. pt completes bed mob (see PT notes). Pt states used w/c previous 2 weeks with assist from / son. Pt sits in w/c and left with PT end of session. OT individual tx; [id number] (30) PT eval: [id number] OT/PT [id number] (20): [place]: OT addresses fx ADLs, balance, UE movement and sequencing while PT addresses LE movement, balance, gait, fx endurance. Education OT Patient Education: Correct positioning, Purpose of tx/functional activities, Rehab process, Safety issues, Transfer techniques, W/C management Teaching Recipient: Patient Teaching Methods: Demonstration, Discussion Response to Teaching: Verbalize Understanding, Return Demonstration OT Short Term Goals Short Term Goals Time Frame: Apr 21, 2020 Eatin Oral hygiene: 6 Toileting hygiene: 3 Shower/bathe self: 3 Upper body dressin Lower body dressin Putting on/taking off footwear: 6 OT Longterm Goals Longterm Goals Time Frame: Apr 28, 2020 Eating (QC): 6 Oral Hygiene (QC): 6 Toileting Hygiene (QC): 6 Shower/Bathe Self (QC): 6 Upper Body Dressing (QC): 6 Lower Body Dressing (QC): 6 On/Off Footwear (QC): 6 Additional Goals: 1-Demonstrate ADL Tasks, 2-Verbalize Understanding, 3- ImproveStrength/[place] 1=Demonstrate adherence to instructed precautions during ADL tasks. 2=Patient will verbalize/demonstrate understanding of assistive devices/modifications for ADL. 3=Patient will improve strength/tolerance for activity to enable patient to perform ADL's. OT Education/Plan Problem List/Assessment Assessment: Decreased Activ Tolerance, Decreased UE Strength, Dependent Transfers, Edema, Impaired Bed Mobility, Impaired Funct Balance, Impaired I ADL's, Impaired Self-Care Skills Discharge Recommendations Plan/Recommendations: Continue POC Therapy Discharge Recommendati: Intermittent Supervision, Home & Family, Post Acute OT Treatment Plan/Plan of Care Treatment,Training & Education: Yes Patient would benefit from OT for education, treatment and training to promote independence in ADL's, mobility, safety and/or upper extremity function for ADL's. Plan of Care: ADL Retraining, Caregiver Training, Concurrent Therapy, Functional Mobility, Group Exercise/Act as Ind, UE Funct Exercise/Act, UE Neuromus Re-Ed/Coord, W/C Management Training Treatment Duration: Apr 28, 2020 Frequency: At least 5 of 7 days/Wk (IRF) Estimated Hrs Per Day: 1.5 hours per day Agreement: Yes Rehab Potential: Fair Time/GCodes Start Time: 09:45 Stop Time: 10:45 Total Time Billed (hr/min): 50 Billed Treatment Time 1, EVM, ADL 2 = 50 OT individual tx; [id number] (30) PT eval: [id number] OT/PT [id number] (20): [place]: OT addresses fx ADLs, balance, UE movement and sequencing while PT addresses LE movement, balance, gait, fx endurance. SALOME MARIN OTR Apr 07, 2020 11:21
--- NOTE | 2020-04-07 11:48 | Physical Therapy Evaluation ---
PT Evaluation-General Medical Diagnosis Admission Date Apr 07, 2020 at 09:45 Medical Diagnosis: debility Onset Date: Mar 24, 2020 Therapy Diagnosis Therapy Diagnosis: weakness Height/Weight Height (Feet): 5 Height (Inches): 9.00 Weight (Pounds): 186 Weight (Ounces): 8.0 Precautions Precautions/Isolations: Fall Prevention, Standard Precautions Referral Physician: Ana Reason for Referral: Evaluation/Treatment Medical History Pertinent Medical History: Alcoholism, CAD, HTN, [place] (life vest), PVD Additional Medical History PVC, acute kidney failure, hypokalemia Current History Admitted to ARU from home due to recent decline in functional mobiltiy and strength. Decreased ability to care for himself with noted falls. Pt had recently started home PT but did not feel is was enough therapy for him. [place] he needed more intensive services. Reviewed History: Yes Social History Home: Single Level Current Living Status: Spouse Entry Into Home: Ramp Prior Prior Level of Function SCALE: Activities may be completed with or without assistive devices. 4-Rxcvcupjvm-wrliwdf completes the activity by him/herself with no assistance from a helper. 5-Set-up or Clean-up Assistance-helper sets up or cleans up; patient completes activity. Crump assists only prior to or following the activity. 4-Supervision or Touching Assistance-helper provides verbal cues and/or touching/steadying and/or contact guard assistance as patient completes activity. Assistance may be provided throughout the activity or intermittently. 3-Partial/Moderate Assistance-helper does LESS THAN HALF the effort. Crump lifts, holds or supports trunk or limbs, but provides less than half the effort. 2-Substantial/Maximal Assistance-helper does MORE THAN HALF the effort. Crump lifts or holds trunk or limbs and provides more than half the effort. 0-Jogynlnrk-udwydq does ALL the effort. Patient does none of the effort to complete the activity. Or, the assistance of 2 or more helpers is required for the patient to complete the activity. If activity was not attempted, code reason: 7-Patient Refused. 9-Not Applicable-not attempted and the patient did not perform the activity before the current illness, exacerbation or injury. 10-Not Attempted due to Environmental Limitations-(lack of equipment, weather restraints, etc.). 88-Not Attempted due to Medical Conditions or Safety Concerns. Bed Mobility: 6 Transfers (B,C,W/C): 6 Gait: 6 Indoor Mobility (Ambulation): Independent Prior Device Use: cane; pt also has a FWW and a rollator Pt reports he had been mod indep with mobility prior to about 2 weeks ago when he had an onset of weakness; he had been able to drive and walk short community distances. He did report he uses a wc for longer distances and to get into the doctor's office. PT Evaluation-Current Subjective Pt is agreeable to PT. Reports an onset of weakness over the past 2 weeks making mobility and self care difficult. Pt happy to be on this unit. Pt/Family Goals His goal is to return home when able. Objective Patient Orientation: Person, Place, Time, Situation ROM/Strength ROM Lower Extremities WNL Strength Lower Extremities Strength is grossly 3/5 throughout. Integumentary/Posture Integumentary refer to nursing notes for full assessment. Bowel Incontinence: No Posture Rounded shoulders and forward head. Neuromuscular (Tone, Coordination, Reflexes) intact and functional Sensory Vision: Wears Glasses Hearing: Functional Hand Dominance: Right Sensation Right Lower Extremit: Intact Sensation Left Lower Extremity: Intact Transfers Roll Left to Right (QC): 3 Sit to Lying (QC): 2 (assist with both legs and to lift trunk; cues for sequen cing and task initiation. ) Lying to Sitting/Side of Bed(Q: 2 Sit to Stand (QC): 2 (mod assist to stand; required cues to scoot forward, lean forward, push up and mod assist to lift. ) Chair/Egv-cn-Xkvxk Xfer(QC): 3 Toilet Transfer (QC): 3 Car Transfer (QC): 88 (Pt unable to safetly attempt this visit. Will attempt tomorrow. ) Gait Does the Patient Walk?: Yes Mode of Locomotion: Walk Anticipated Mode of Locomotion: Walk Walk 10 feet (QC): 3 (min assist for safety and balance. ) Walk 50 ft with 2 Turns(QC): 88 (pt unable to walk this distance. ) Walk 150 ft (QC): 88 Walking 10ft/uneven surface-QC: 88 Distance: 15 ft; pt suddenly sat during ambulation; wc was directly behind. Gait Assistive Device: FWW Comments/Gait Description Decreased step length and foot clearance; decreased speed, sat suddenly, r equires close assist and to be followed by a wc. Wheelchair Training Does the Pt Use a Wheelchair?: Yes Distance: 50 ft Wheel 50 ft with 2 turns (QC): 4 Wheel 150 ft (QC): 7 (fatigued) Type of Wheelchair: Manual Stairs 1 Step (curb) (QC): 88 4 Steps (QC): 88 12 Steps (QC): 88 Balance Sitting Static: Fair Sitting Dynamic: Fair Standing Static: Fair Standing Dynamic: Fair Picking up an Object (QC): 88 Treatment Functional transfer training and mobility. Eduation on ARU and what to expect. Co treat with OT part of treatment to address functional standing balance and transfers as OT addressed self care and ADL's in standing. skill of 2 clinicians indicted as OT addressed self care and PT provided support, cues and asisst iwth transfers and balance. Assessment/Needs pt presents with admit from home with noted decline in funcitonal strength and balance that is impairing his ability to safely mobilize in his home and out of his home. He has experienced a recent decline and will benefit from skilled services to improve mobiltiy and allow him to return home as before. Rehab Potential: Guarded PT Short Term Goals Short Term Goals Time Frame: Apr 14, 2020 Sit to lyin Lying to sitting on side of be: 4 Sit to stand: 4 Walk 150 feet: 4 Wheel 150 feet: 6 PT Detention Goals Detention Goals PT Detention Goals Time Frame: Apr 28, 2020 Roll Left & Right (QC): 6 Sit to Lying (QC): 6 Lying-Sitting on Side/Bed(QC): 6 Sit to Stand (QC): 6 Chair/Ino-tz-Acwuq Xfer(QC): 6 Toilet Transfer (QC): 6 Car Transfer (QC): 5 Does the Patient Walk: Yes Walk 10 feet (QC): 6 Walk 50ft with 2 Turns (QC): 6 Walk 150 ft (QC): 6 Walking 10ft on Uneven Surface: 5 1 Step (curb) (QC): 5 4 Steps (QC): 4 12 Steps (QC): 10 Picking up an Object (QC): 3 Wheel 50 feet with 2 turns (QC: 6 Wheel 150 feet: 6 PT Plan Problem List Problem List: Activity Tolerance, Functional Strength, Safety, Balance, Gait, Transfer, Bed Mobility Treatment/Plan Treatment Plan: Continue Plan of Care Treatment Plan: Bed Mobility, Education, Functional Activity Davina, Functional Strength, Group Therapy, Gait, Safety, Therapeutic Exercise, Transfers Treatment Duration: Apr 28, 2020 Frequency: At least 5 of 7 days/Wk (IRF) Estimated Hrs Per Day: 1.5 hours per day Patient and/or Family Agrees t: Yes Safety Risks/Education Patient Education: Transfer Techniques, Safety Issues Teaching Recipient: Patient Teaching Methods: Discussion Response to Teaching: Reinforcement Needed Discharge Recommendations Therapy Discharge Recommendati: Post Acute PT Time/GCodes Time In: 1015 Time Out: 1110 Total Billed Treatment Time: 55 Total Billed Treatment visit EVM 10 FA 45 Co treat [id number] LYLY BOYER PT Apr 07, 2020 11:48
[2020-04-07] MEDS: polyethylene glycoL POWDER 17 GM (MIRALAX) PACK PO SCH ×2 (12:08→21:30)
[2020-04-07] MEDS: DOCUSATE SODIUM 100 MG (COLACE) CAP PO SCH ×2 (12:08→21:30)
[2020-04-07] MEDS: SENNA W/DOCUSATE (SENOKOT S) TABLET PO SCH ×2 (12:08→21:30)
--- NOTE | 2020-04-07 12:09 | Consultation-Cardiology ---
HPI-Cardiology Cardiology Consultation: Date of Consultation 04/07/20 Time Seen by a Provider: 11:35 Date of Admission 04-07-2020 Attending Physician Socorro Perez DO Admitting Physician Adan Wright MD Consulting Physician Nestor Broderick MD HPI: Chief Complaint: Gen weakness Mr. Carrero is a 79 yr old male admitted to [facility] from home d/t increasing weakness. He denies any c/o CP, palpitations, dyspnea, syncope or near syncope. He does have a Life Vest in place d/t ICM. He denies any shocks. He reports chronic bilat pedal edema which is unchanged. He denies any nausea or vomiting at this time. Review of Systems-Cardiology Review of Systems Constitutional: No chills, No fever; malaise, weight loss Ears/Nose/Throat: No epistaxis Respiratory: As described under HPI Cardiovascular: As described under HPI Gastrointestinal: No constipation, No diarrhea; nausea, vomiting Genitourinary: No hematuria Musculoskeletal: no symptoms reported Skin: No rash on exposed areas, No ulcerations on exposed areas Psychiatric/Neurological: No seizure, No focal weakness, No syncope Hematologic: No bleeding abnormalities IYR-Fczuot-Jyviot Hx Patient Social History Type Used: Cigars 2nd Hand Smoke Exposure: Yes Immunizations Up To Date Tetanus Booster (TDap): Unknown Date of Pneumonia Vaccine: Apr 25, 2014 Date of Influenza Vaccine: Mar 26, 2020 Past Medical History PMH As described under Assessment. Family Medical History Family Medical History: Family h/o CAD and CVA in his mother and father No premature CAD or SCD Family History: FH: COPD (chronic obstructive pulmonary disease) 19 FATHER Myocardial infarction 19 MOTHER Allergies and Home Medications Allergies Coded Allergies: Penicillins (Verified Allergy, Unknown, 03/18/20) nitroglycerin (Verified Allergy, Unknown, 03/18/20) Home Medications Acetaminophen 500 Mg Tablet, 1,000 MG PO 0300 PRN for PAIN-MILD, (Reported) Aspirin 81 Mg Tablet.dr, 81 MG PO HS, (Reported) Atorvastatin Calcium 40 Mg Tablet, 40 MG PO Q48H, (Reported) Clopidogrel Bisulfate 75 Mg Tablet, 75 MG PO DAILY, (Reported) Famotidine 20 Mg Tablet, 20 MG PO BID, (Reported) Furosemide 40 Mg Tablet, 20 MG PO MO,WE,FR, (Reported) Isosorbide Mononitrate 120 Mg Tab.er.24h, 120 MG PO 0300, (Reported) Magnesium Oxide 400 Mg Tablet, 400 MG PO DAILY, (Reported) Metoclopramide HCl 5 Mg Tablet, 5 MG PO BID PRN for NAUSEA/VOMITING-3RD LINE, (Reported) Metoprolol Tartrate 50 Mg Tablet, 50 MG PO BID, (Reported) Multivits,Ca,Min/Iron/FA/Lycop 1 Each Tablet, 1 TAB PO DAILY, (Reported) [place] 3 Polyunsat Fatty Acids 1,000 Mg Cap, 1,000 MG PO BID, (Reported) Potassium Chloride 20 Meq Tab.er.prt, 10 MEQ PO MON,WE,FR, (Reported) TAKES OF A 20NEQ TAB Ranolazine 1,000 Mg Tab.er.12h, 1,000 MG PO BID, (Reported) Thiamine HCl 100 Mg Tablet, 100 MG PO DAILY, (Reported) [Folic Acid] , 1 MG PO DAILY, (Reported) Physical Exam-Cardiology Physical Exam Vital Signs/I&O 04/09/20 00:00 Intake Total 800 ml Output Total 650 ml Balance 150 ml Capillary Refill : Constitutional: AAO x 3, other (thin, frail) HEENT: PERRL, hearing is well preserved Neck: No carotid bruit; carotid pulses are 2 + bilaterally Respiratory: No accessory muscle use, No respiratory distress; chest expansion is symmetric, chest is bilaterally symmetric, lungs clear to auscultation Cardiovascular: regular rate-rhythm; No JVD; S1 and S2 Gastrointestinal: soft, audible bowel sounds Extremities: other (bilat mod pedal edema) Neurologic/Psychiatric: grossly intact (moves all extremities) Skin: No rash on exposed areas, No ulcerations on exposed areas Data Review Labs Laboratory Tests 04/09/20 04:10: Sodium Level 126L, Potassium Level 5.0, Chloride Level 92L, Carbon Dioxide Level 23, Anion Gap 11, Blood Urea Nitrogen 20H, Creatinine 1.39H, Estimat Glomerular Filtration Rate 49, BUN/Creatinine Ratio 14, Glucose Level 100, Calcium Level 8.5, B-Type Natriuretic Peptide 1903.1H A/P-Cardiology Assessment/Admission Diagnosis Generalized weakness of undetermined etiology Nausea and vomiting and wgt loss of undetermined etiology Ac renal failure on top of CKD 3 in Jan 2020 and Mar 14. Ac component likely related to vol depletion from vomiting Mild chronic hyponatremia, probably related to chronic diuretic therapy Chronic systolic and diastolic CHF. Echo of 8/27/20: LVEF 40-45%, dilated LA, mod to sev MR, AoV scl w/o stenosis, mod TR, PASP 35-40 mmHg. Echo of 03/18/20: LVEF 25-30%, grade 2 sorenson dysfuction, sever MR, mild , mid AI, mod TR, PASP 50-55 Hg - Life Vest in place Chronic, stable angina, likely due to distal SVG-RCA disease to which multiple, complex interventions have been undertaken without any durable relief of symptoms Coronary artery disease with a history of coronary artery bypass surgery consisting of left internal mammary artery graft to left anterior descending artery, saphenous vein graft to right coronary artery, saphenous vein graft to diagonal artery, saphenous vein graft to first obtuse marginal artery, saphenous vein graft to second obtuse marginal artery in 1999 CAD: H/o CABG and mutiple subsequent PCIs. H/o RCA-SVG perforation on 11/28/18 at time of intervention for SVG occlusion by Dr Miranda. Last card cath on 11/29/18 (Dr Smith at [facility]): 40-50% LMCA, occluded LAD, patent LCX with occluded OMs, occluded RCA, patent HUBBARD-LAD, patent SVG-om, Patent SVG-RCA with patent distal stent (known to be Alp Xience 2.25x8 placed on 08/28/17) Hyperlipidemia being treated with statin therapy Diabetes mellitus, type II. Gastroesophageal reflux. Tobaccoism consisting of smoking cigars. We have asked him to quit Carotid arterial disease, mild, per ultrasonography of June 2017 Minimal ALT elevation, stable on serial evals Discussion and Recomendations Continue current medication regimen Monitor lab Replace electrolytes as indicated Continue Life Vest PT/OT as per medical services We would like thank Dr. Perez for this consult Further recs will be based on his hospital course Clinical Quality Measures DVT/VTE Risk/Contraindication: Risk Factor Score Per Nursin RFS Level Per Nursing on Admit: 4+=Very High SHANT KIRBY Apr 07, 2020 12:09
[2020-04-07] MEDS: KCL 10 MEQ TAB (MICRO K) PO SCH ×2 (12:14→13:36)
[2020-04-07] MEDS: FUROSEMIDE 20 MG (LASIX) TAB PO SCH ×2 (12:15→13:37)
[2020-04-07 12:20] VITALS: BP 135/61
--- NOTE | 2020-04-07 12:22 | ST Cognitive Linguistic Eval ---
Speech Evaluation-General Medical Diagnosis debility Onset Date: Mar 24, 2020 Therapy Diagnosis Therapy Diagnosis: Cognitive-communication Referral Referring Physician: Dr. Perez Medical History Pertinent Medical History: Alcoholism, CAD, HTN, PA (life vest), PVD Reviewed History: Yes Social History Current Living Status: Spouse Speech PLF-Current Status Prior Level of Function Patient lives with his where he is independent for most of his daily needs. Subjective Patient was pleasant and cooperative with the cognitive assessment. Language Eval: Auditory Comprehends Simple Yes/No Ques: Functional Indent/Objects Multiple Jimenez: Functional Ident/Pics in Multiple Jimenez: Functional Follows 1-Step Commands: Functional Follows Complex Directions: Functional Follows General Conversations: Functional Language Eval: Verbal Language Completes Spontaneous Greeting: Functional Produces Auto, Serial Info: Functional Imitates Simple Words/Phrases: Functional Word Finding: Functional Requests Basic Needs: Functional States Basic Personal Info: Functional Expresses Complex Ideas: Functional Objective Cognitive Domain Attention: WNL Memory: WNL Problem Solving: Functional Executive Functions: WNL Visuospatial Skills: WNL Composite Severity Rating: WNL Clock Drawing Severity Rating: WNL Objective Formal/Standardized Tests [facility] Mental Status ([facility]) Results 27/30, within normal range of function Oral Motor/Speech Production Within Normal Limits Impression The patient is a pleasant 79 y/o man who was admitted to the ARU due to debility. The patient states he believes he got weak after beginning Lasix. He states he lost 19# once he began taking the med. Patient was given the SLUMS with a score of 27/30 obtained. The score is within the normal range of function. The patient does not require further ST services at this time. Speech Patient Assess Expression of Ideas/Wants: Expression (4) Understanding Verbal Content: Understands (4) Brief Interview-Mental Status: Yes Repetition of Three Words: Three (3) Temporal Orientation: Year: Correct (3) Temporal Orientation: Month: Accurate within 5 days(2) Temporal Orientation: Day: Correct (1) Recall : Wear to say "Sock": Yes,after cueing (1) Recall : Color: Yes, no cue required (2) Recall : Bed: Yes, no cue required (2) Memory/Recall Ability: Current season, That he or she is in a hsp/hsp unit Speech-Plan Patient/Family Goals Patient/Family Goals: Patient plans on returning to his home upon discharge. Treatment Plan Speech Therapy Treatment Plan: Discontinue ST Treatment Duration: Apr 07, 2020 Frequency: 1 time per week Estimated Hrs Per Day: .5 hour per day Rehab Potential: Good Barriers to Learning: Patient's recent decline in physical ability, age Pt/Family Agrees to Plan: Yes Safety Risks/Education Teaching Recipient: Patient Teaching Methods: Discussion Response to Teaching: Verbalize Understanding Education Topics Provided: Safety within his room, communication of wants/needs Time Speech Therapy Time In: 11:30 Speech Therapy Time Out: 12:00 Total Billed Time: 30 Billed Treatment Time 1, SPSNDCOMP RAYMOND Jj Apr 07, 2020 12:22
[2020-04-07 12:51] LABS: BASOPHILS % (AUTO) 1 % (0-10); EOSINOPHILS # (AUTO) 0.1 10^3/uL (0.0-0.3); EOSINOPHILS % (AUTO) 2 % (0-10); HEMATOCRIT 33 % (40-54); HEMOGLOBIN 11.3 g/dL (13.3-17.7); LYMPHOCYTES # (AUTO) 0.7 10^3/uL (1.0-4.0); LYMPHOCYTES % (AUTO) 9 % (12-44); MEAN CORPUSCULAR HEMOGLOBIN 34 pg (25-34); MEAN CORPUSCULAR HGB CONC 34 g/dL (32-36); MEAN CORPUSCULAR VOLUME 99 fL (80-99); MEAN PLATELET VOLUME 9.1 fL (9.0-12.2); MONOCYTES # (AUTO) 0.6 10^3/uL (0.0-1.0); MONOCYTES % (AUTO) 8 % (0-12); NEUTROPHILS % (AUTO) 80 % (42-75); PLATELET COUNT 339 10^3/uL (130-400); WHITE BLOOD COUNT 7.6 10^3/uL (4.3-11.0)
[2020-04-07 13:07] LABS: ALBUMIN 3.4 GM/DL (3.2-4.5); BILIRUBIN,TOTAL 2.7 MG/DL (0.1-1.0); CALCIUM 9.2 MG/DL (8.5-10.1); CREATININE SERUM 1.5 MG/DL (0.60-1.30); POTASSIUM 5.4 MMOL/L (3.6-5.0); TOTAL PROTEIN 7.1 GM/DL (6.4-8.2)
--- NOTE | 2020-04-07 13:09 | Progress Note ---
GLADYS SALEH MED STUDENT 04/07/20 1309: Progress Note CC: Recurrent Worsening Weakness HPI: Kwesi Carrero is a 79 y/o male who presents to rehab for recurrent generalized weakness onset 2 weeks ago. Patient was seen in late January for hyperkalemia and acute kidney failure for which he was transferred to [facility] for management. Patient was then discharged home for PT/OT with [facility] and, per , was doing well for a few weeks. Patient subsequently started feeling weaker and was admitted to [facility] (03/18-03/21) for dehydration, electrolyte abnormalities and possible acute on chronic diastolic CHF. Patient was revealed to have elevated BNP, elevated Cr, low Potassium, and chronic hyponatremia likely related to EtOH use. Patient was discharged again with PT and home RN care, but now feels as though his weakness is again getting worse over the last 2 weeks. Patient requested to be seen in the [facility] rehab unit for more intensive serves as well as cardiac monitoring. ROS: General: no fever, no chills HEENT: no headache, no eye pain Cardiac: RRR, no murmurs appreciated (note: difficult to auscultate due to life vest) Respiratory: crackles in lung bases, no wheezes GI: no abdominal pain, no vomiting, no diarrhea Urinary: no blood in urine, no change in frequency Extremities: no pain, 2+ pitting edema in bilateral lower extremities Neuro: no dizziness, no LOC PMH: -CAD -HTN -HLD -DM -STEMI (2019) -Cataracts -Chronic edema/swelling -subdural/Subarachnoid bleed (11/20/18) -Chronic hyponatremia -congenital unilateral agenesis -chronic ethanol user Family Hx: -COPD (father) -MD (mother) -CVA Social Hx: -Current everyday smoker: Cigars -Current everyday drinker: [place] Surgical Hx: -Cardiac catheterization x4 -Stent placement x2 -5 vessel CABG -cholecystectomy Allergies: -Peniciliins (unknown reaction) -Nitroglycerin (unknown reaction, no reaction recorded when administered in ER) Medications: -Acetominophen -Aspirin -Atorvastatin -Clopidogrel -Famitodine -Furosemide -Isosorbide mononitrate (in ER) -Magnesium Oxide -Metochlopramide -Metoprolol -[place] 3 FAs -Potassium Chloride -Ranolazine -Thiamine -Folic Acid Physical Exam: -General: Well appearing, WD/WN, sitting and talking comfortably -Head: No ecchymosis, no tenderness -Eyes: PERRL, EOMI -Nose: nares patent, no lesions -Heart: No appreciable murmurs (note: limited due to life vest), regular rate -Lungs: CTAB, no accessory muscle use, no respiratory distress -Abdomen: soft, nontender, nondistended -Extremities: normal peripheral pulses, 2+ pitting pedal edema -Neuro/Psych: alert, oriented Assessment/Plan: General -Debility: managed by PT/OT -Consult cardiology -Consult general surgery Rehab: patient will work on returning to [facility] in terms of -Standing balance -Transfers -Walking: patient shows fatigue with 150ft distance -Bed mobility: rolling over, lying to sitting, sitting to standing -Functional Strength/Stamina: patient has noticable fatigue with activity -Bathing: difficulties noted especially with cleaning lower half -Dressing self, especially lower half -Toileting Hygiene: difficulty cleaning lower half SOCORRO HERCULES DO 04/07/202106: Supervisory-Addendum Brief Verification & Attestation Participated in pt care: history, MDM, physical Personally performed: exam, history, MDM, supervision of care Care discussed with: Medical Student Procedures: n/a Results interpretation: Verified all documentation Verification and Attestation of Medical Student E/M Service A medical student performed and documented this service in my presence. I reviewed and verified all information documented by the medical student and made modifications to such information, when appropriate. I personally performed the physical exam and medical decision making. Socorro Hercules, Apr 07, 2020,21:07 GLADYS SALEH MED STUDENT Apr 07, 2020 13:09 SOCORRO HERCULES DO Apr 07, 2020 21:07
--- NOTE | 2020-04-07 14:22 | Therapy Group Daily Note ---
Therapy Daily Group Note Patient Education Topic Home Safety Exercises LE Seated Exercise, UE Exercise Session Ratio (pt:therapist): 2:1 Goal of Session: Home Safety Strategies, UE/LE Strengthing Goal Met for this Session: Yes Pt Benefit of Group: Contributions to Others, F/U Use of Strategies @Home, Increased Functional Safety, Increased Functional Strength, Improved Cognition, Recognition of Peers, Socialization Other/Notes Pt transported via w/c to OT group at [facility]. Group consisted of introduction (name, place living, worst job), socialization, seated UE/LE exercises and educational topic home safety. Pt introduced self appropriately and actively listened to peer's introduction. Pt was able to complete seated UE/LE exercises without difficulty. Pt acknowledged understanding of educational topic by giving own personal strategies and describing home environment. After session, pt sitting in recliner with call light/phone in reach. All needs met in room. Start Time: 13:00 Stop Time: 14:10 Total Billed Treatment Time: 70 Total Billed Treatment 1-LYLY NEUMANN Apr 07, 2020 14:22
[2020-04-07 15:16] VITALS: BP 126/60
--- NOTE | 2020-04-07 15:20 | CONSULTATION REPORT ---
DATE OF SERVICE: ADMITTING PHYSICIAN: Socorro Perez DO ATTENDING PRIMARY CARE PHYSICIAN: Dr. Adan Wright. HISTORY OF PRESENT ILLNESS: The patient is a 79-year-old male recently seen in our office for nausea and vomiting as well as dysphagia. He does have significant past medical history including coronary artery disease, history of myocardial infarction, hypercholesterolemia, hypertension as well as bilateral lower extremity edema and diabetes. He was admitted to rehabilitation due to significant weakness. Part of the reason may be due to malnutrition. He has been having episodes of regurgitation as well as nausea and vomiting for the past 2 weeks and has lost weight recently. He does have a history of gastroesophageal reflux disease. He was initially sent for a cardiac clearance. However, due to his weakness, was admitted to inpatient rehabilitation. PAST MEDICAL HISTORY: Coronary artery disease, history of myocardial infarction, hypercholesterolemia, hypertension, bilateral lower extremity edema, diabetes, gastroesophageal reflux disease, cataracts. PAST SURGICAL HISTORY: Coronary artery bypass grafting 1999, cardiac catheterization, stent placement, laparoscopic cholecystectomy. ALLERGIES: PENICILLIN. MEDICATIONS: Atorvastatin 40 mg daily, famotidine 20 mg b.i.d., ranolazine 1000 mg b.i.d., isosorbide 120 mg daily, magnesium 400 mg daily, Plavix 75 mg daily, fish oil 1000 mg b.i.d., aspirin 81 mg daily, metoprolol 50 mg b.i.d., furosemide 20 mg 3 days a week, potassium 20 mEq 3 days a week, folic acid 1 mg daily. SOCIAL HISTORY: Positive smoke, daily alcohol. FAMILY HISTORY: Father hypertension, diabetes, coronary artery disease. Mother diabetes, hypertension, coronary artery disease. VITAL SIGNS: Temperature 36.5, blood pressure 135/61, pulse 53, respirations 18, pulse ox 99% on room air. REVIEW OF SYSTEMS: This is an obese male, currently in no acute distress. He is not experiencing any shortness of breath or difficulty breathing. No chest pain, palpitations, diaphoresis. Intermittent episodes of nausea and vomiting as well as regurgitation. No hematemesis or coffee ground emesis. He has had issues with constipation. Does not recall any red blood per rectum nor any dark tarry stools. No fever, chills with some weight loss due to inability to eat. All other review of systems negative. PHYSICAL EXAMINATION: CHEST: Distant breath sounds bilaterally. HEART: Regular, no murmurs. EXTREMITIES: +1/3 bilateral lower extremity edema. Negative Homans sign. HEENT: No scleral icterus. NECK: No cervical lymphadenopathy. ABDOMEN: Soft, nondistended. There is mild discomfort in the epigastric region upon deep palpation. No peritoneal signs. No hernias. SKIN: Warm, dry. LABORATORY DATA: WBC 7.6, hemoglobin 11.3, hematocrit 33, platelets 339. BUN 21, creatinine 1.50, total bilirubin 2.7. ASSESSMENT AND PLAN: A 79-year-old male with nausea, vomiting, reflux and regurgitation with weight loss and weakness. We will continue with conservative medical management for now and await cardiac clearance and once cleared and stable, we will then proceed with an EGD as well as biopsies as appropriate as well as a possible dilatation if any strictures identified. We will also continue to follow patient's liver function enzymes, which may be related to alcohol consumption versus the possibility of choledocholithiasis, which we would proceed with further radiologic imaging. Job ID: [id number] DocumentID: [id number] Dictated Date: 04/07/2020 14:42:19 Tire Sorter Date: 04/07/2020 15:19:10 Dictated By: KADEN SCOTT MD
[2020-04-07] MEDS: OMEGA 3 (FISH OIL) 1000 MG CAP PO SCH (18:34)
[2020-04-07 18:42] VITALS: BP 126/60
--- NOTE | 2020-04-07 19:10 | Consultation-Cardiology ---
HPI-Cardiology Cardiology Consultation: Date of Consultation 04/07/20 Time Seen by a Provider: 17:50 Date of Admission Attending Physician Socorro Perez DO Admitting Physician Adan Wright MD Consulting Physician RALPH AMAYA MD, FACP, FACC HPI: Chief Complaint: CC: Gen weakness HPI Mr. Carrero is a 79 yr old male admitted to [facility] 227 from home d/t increasing weakness. He denies any c/o CP, palpitations, dyspnea, syncope or near syncope. He does have a Life Vest in place d/t ICM. He denies any shocks. He reports chronic bilat pedal edema which is unchanged. He denies any nausea or vomiting at this time. Review of Systems-Cardiology Review of Systems Constitutional: No chills, No fever; malaise, weight loss Ears/Nose/Throat: No epistaxis Respiratory: As described under HPI Cardiovascular: As described under HPI Gastrointestinal: No constipation, No diarrhea; nausea, vomiting Genitourinary: No hematuria Musculoskeletal: no symptoms reported Skin: No rash on exposed areas, No ulcerations on exposed areas Psychiatric/Neurological: No seizure, No focal weakness, No syncope Hematologic: No bleeding abnormalities TNU-Axzsaj-Zaqsom Hx Patient Social History Alcohol Use: Occasionally Uses Recreational Drug Use: No Smoking Status: Current Someday Smoker Type Used: Cigars 2nd Hand Smoke Exposure: Yes Recent Foreign Travel: Yes Recent Infectious Disease Expo: Yes Physical Abuse Screen: No Sexual Abuse: No Immunizations Up To Date Tetanus Booster (TDap): Unknown Date of Pneumonia Vaccine: Apr 25, 2014 Date of Influenza Vaccine: Mar 26, 2020 Past Medical History PMH As described under Assessment. Family Medical History Family Medical History: Family h/o CAD and CVA in his mother and father No premature CAD or SCD Family History: FH: COPD (chronic obstructive pulmonary disease) 19 FATHER Myocardial infarction 19 MOTHER Allergies and Home Medications Allergies Coded Allergies: Penicillins (Verified Allergy, Unknown, 03/18/20) nitroglycerin (Verified Allergy, Unknown, 03/18/20) Home Medications Acetaminophen 500 Mg Tablet, 1,000 MG PO 0300 PRN for PAIN-MILD, (Reported) Aspirin 81 Mg Tablet.dr, 81 MG PO HS, (Reported) Atorvastatin Calcium 40 Mg Tablet, 40 MG PO Q48H, (Reported) Clopidogrel Bisulfate 75 Mg Tablet, 75 MG PO DAILY, (Reported) Famotidine 20 Mg Tablet, 20 MG PO BID, (Reported) Furosemide 40 Mg Tablet, 20 MG PO MO,WE,FR, (Reported) Isosorbide Mononitrate 120 Mg Tab.er.24h, 120 MG PO 0300, (Reported) Magnesium Oxide 400 Mg Tablet, 400 MG PO DAILY, (Reported) Metoclopramide HCl 5 Mg Tablet, 5 MG PO BID PRN for NAUSEA/VOMITING-3RD LINE, (Reported) Metoprolol Tartrate 50 Mg Tablet, 50 MG PO BID, (Reported) Multivits,Ca,Min/Iron/FA/Lycop 1 Each Tablet, 1 TAB PO DAILY, (Reported) [place] 3 Polyunsat Fatty Acids 1,000 Mg Cap, 1,000 MG PO BID, (Reported) Potassium Chloride 20 Meq Tab.er.prt, 10 MEQ PO MON,WE,FR, (Reported) TAKES OF A 20NEQ TAB Ranolazine 1,000 Mg Tab.er.12h, 1,000 MG PO BID, (Reported) Thiamine HCl 100 Mg Tablet, 100 MG PO DAILY, (Reported) [Folic Acid] , 1 MG PO DAILY, (Reported) Patient Home Medication List Home Medication List Reviewed: Yes Physical Exam-Cardiology Physical Exam Vital Signs/I&O 04/07/20 04/07/20 04/07/20 04/07/20 11:20 12:20 15:16 18:42 Temp 36.5 36.2 36.2 Pulse 53 53 53 Resp 18 16 16 B/P (MAP) 135/61 126/60 (82) 126/60 (82) Pulse Ox 99 100 100 O2 Delivery Room Air Room Air Room Air Room Air Capillary Refill : Constitutional: AAO x 3, other (thin, frail) HEENT: PERRL, hearing is well preserved Neck: No carotid bruit; carotid pulses are 2 + bilaterally Respiratory: No accessory muscle use, No respiratory distress; chest expansion is symmetric, chest is bilaterally symmetric, lungs clear to auscultation Cardiovascular: regular rate-rhythm; No JVD; S1 and S2 Gastrointestinal: soft, audible bowel sounds Extremities: other (bilat mod pedal edema) Neurologic/Psychiatric: grossly intact (moves all extremities) Skin: No rash on exposed areas, No ulcerations on exposed areas Data Review Labs Laboratory Tests 04/07/20 12:27: White Blood Count 7.6, Red Blood Count 3.36L, Hemoglobin 11.3L, Hematocrit 33L, Mean Corpuscular Volume 99, Mean Corpuscular Hemoglobin 34, Mean Corpuscular Hemoglobin Concent 34, Red Cell Distribution Width 13.5, Platelet Count 339, Mean Platelet Volume 9.1, Immature Granulocyte % (Auto) 0, Neutrophils (%) (Auto) 80H, Lymphocytes (%) (Auto) 9L, Monocytes (%) (Auto) 8, Eosinophils (%) (Auto) 2, Basophils (%) (Auto) 1, Neutrophils # (Auto) 6.0, Lymphocytes # (Auto) 0.7L, Monocytes # (Auto) 0.6, Eosinophils # (Auto) 0.1, Basophils # (Auto) 0.0, Immature Granulocyte # (Auto) 0.0, Sodium Level 127L, Potassium Level 5.4H, Chloride Level 91L, Carbon Dioxide Level 28, Anion Gap 8, Blood Urea Nitrogen 21H, Creatinine 1.50H, Estimat Glomerular Filtration Rate 45, BUN/Creatinine Ratio 14, Glucose Level 101, Calcium Level 9.2, Corrected Calcium 9.7, Total Bilirubin 2.7H, Aspartate Amino Transf (AST/SGOT) 58H, Alanine Aminotransferase (ALT/SGPT) 26, Alkaline Phosphatase 219H, Total Protein 7.1, Albumin 3.4 A/P-Cardiology Assessment/Admission Diagnosis Generalized weakness of undetermined etiology Nausea and vomiting and wgt loss of undetermined etiology Ac renal failure on top of CKD 3 in Jan 2020 and Mar 14. Ac component likely related to vol depletion from vomiting Mild chronic hyponatremia, probably related to chronic diuretic therapy Chronic systolic and diastolic CHF. Echo of 02/19/20: LVEF 40-45%, dilated LA, mod to sev MR, AoV scl w/o stenosis, mod TR, PASP 35-40 mmHg. Echo of 03/18/20: LVEF 25-30%, grade 2 sorenson dysfuction, sever MR, mild , mid AI, mod TR, PASP 50-55 Hg - Life Vest in place Chronic, stable angina, likely due to distal SVG-RCA disease to which multiple, complex interventions have been undertaken without any durable relief of symptoms Coronary artery disease with a history of coronary artery bypass surgery consisting of left internal mammary artery graft to left anterior descending artery, saphenous vein graft to right coronary artery, saphenous vein graft to diagonal artery, saphenous vein graft to first obtuse marginal artery, saphenous vein graft to second obtuse marginal artery in 1999 CAD: H/o CABG and mutiple subsequent PCIs. H/o RCA-SVG perforation on 11/28/18 at time of intervention for SVG occlusion by Dr Miranda. Last card cath on 11/29/18 (Dr Smith at [facility]): 40-50% LMCA, occluded LAD, patent LCX with occluded OMs, occluded RCA, patent HUBBARD-LAD, patent SVG-om, Patent SVG-RCA with patent distal stent (known to be Alp Xience 2.25x8 placed on 08/28/17) Hyperlipidemia being treated with statin therapy Diabetes mellitus, type II. Gastroesophageal reflux. Tobaccoism consisting of smoking cigars. We have asked him to quit Carotid arterial disease, mild, per ultrasonography of June 2017 Minimal ALT elevation, stable on serial evals Discussion and Recomendations Continue current medication regimen Monitor lab Replace electrolytes as indicated Continue Life Vest PT/OT as per medical services We would like thank Dr. Perez for this consult Further recs will be based on his hospital course Clinical Quality Measures DVT/VTE Risk/Contraindication: Risk Factor Score Per Nursin RFS Level Per Nursing on Admit: 4+=Very High RALPH AMAYA MD FACP FAC CCDS Apr 07, 2020 19:10
[2020-04-07] MEDS: RANOLAZINE ER 500 MG TAB (RANEXA) PO SCH (21:29)
[2020-04-07] MEDS: FAMOTIDINE 20 MG (PEPCID) TABLET PO SCH (21:29)
[2020-04-07] MEDS: meTOprolol TARTRATE 50 MG (LOPRESSOR) TAB PO SCH (21:29)
[2020-04-07] MEDS: MELATONIN 3 MG TABLET PO PRN (21:29)
[2020-04-07] MEDS: ASPIRIN E.C. 81 MG (ECOTRIN) TAB PO SCH (21:29)
[2020-04-08] MEDS: ISOSORBIDE MONONITRATE 60 MG (IMDUR) TAB PO SCH (02:35)
[2020-04-08] MEDS: ACETAMINOPHEN 500 MG TAB (TYLENOL) PO PRN ×2 (02:35→12:17)
--- NOTE | 2020-04-08 05:49 | Individualized Plan of Care ---
Individualized Plan of Care Rehab Nursing IPOC Order Admission Date Apr 07, 2020 at 09:45 Current Orders Orders Admission Order(Inpt,Obs,Sdc) (04/07/20 05:06) Vital Signs: Per Unit Policy ( 08,16,00 (04/07/20 05:06) Evaristo Anderson 09,21 (04/07/20 05:06) Sequential Compression Device Q4H (04/07/20 05:06) Rolling Mill Operator-Inpt Rehab Con (04/07/20 05:06) Rehab Nursing Orders-Ipoc (04/07/20 05:06) Physical Therapy Rehab Orders (04/07/20 05:06) Occupational Therapy Rehab Ord (04/07/20 05:06) Speech Therapy Rehab Orders (04/07/20 05:06) Cbc With Automated Diff (04/08/20 06:00) Comprehensive Metabolic Panel (04/08/20 06:00) General/Regular (04/07/20 Breakfast) Intake & Output ,, (04/07/20 05:06) Precautions (Aru) (04/07/20 05:06) Rehab-Intensity Of Therapy (04/07/20 05:06) Initiate Admission Nursing Pro .admission (04/07/20 05:06) Alprazolam Tablet (Xanax Tablet) (04/07/20 05:15) Calcium Carbonate Chew Tablet (Antacid C (04/07/20 05:15) Diphenhydramine Tablet (Benadryl Tablet) (04/07/20 05:15) Docusate Sodium Capsule (Colace Capsule) (04/07/20 09:00) Docusate Sodium Capsule (Colace Capsule) (04/07/20 05:15) Bisacodyl Suppository (Dulcolax Supposit (04/07/20 05:15) Lactulose Oral Solution (Enulose Oral So (04/07/20 05:15) Na Phos/Na Biphos Enema (Fleet Enema Rafael (04/07/20 05:15) Guaifenesin/Codeine Syrup (Robitussin Ac (04/07/20 05:15) Loperamide Tablet (Imodium Tablet) (04/07/20 05:15) Melatonin Tablet (Melatonin Tablet) (04/07/20 05:15) Polyethylene Glycol Powder Pkt (Miralax (04/07/20 09:00) Ondansetron Oral Dissolve Tab (Zofran (04/07/20 05:15) Senna S Tablet (Senokot S Tablet) (04/07/20 09:00) Initiate Admission Nursing Pro .admission (04/07/20 05:06) Cbc With Automated Diff (04/07/20 10:00) Comprehensive Metabolic Panel (04/07/20 10:00) Admission Arrival Bed Request (04/07/20 10:02) Acetaminophen Tablet (Tylenol Tablet) (04/07/20 11:00) Aspirin Enteric Coated Tablet (Ecotrin T (04/07/20 21:00) Atorvastatin Tablet (Lipitor) (04/07/20 21:00) Clopidogrel Tablet (Plavix Tablet) (04/08/20 09:00) Famotidine Tablet (Pepcid Tablet) (04/07/20 21:00) Metoclopramide Tablet (Reglan Tablet) (04/07/20 11:00) Metoprolol Tartrate (Ir) Tab (Lopressor (04/07/20 21:00) [place] 3 Capsule (Fish Oil Capsule) (04/07/20 18:00) Thiamine Tablet (Vitamin B-1 Tablet) (04/08/20 09:00) Isosorbide Mononitrate Tablet (Imdur Tab (04/08/20 03:00) Magnesium Oxide Tablet (Mag Ox Tablet) (04/08/20 08:00) Therapeutic Multivitamin Tab (Vitamins, (04/08/20 07:00) Ranolazine Er Tablet (Ranexa Er Tablet) (04/07/20 21:00) Folic Acid Tablet (Folic Acid Tablet) (04/08/20 09:00) Transfer - Bed/Room/Location (04/07/20 10:50) Consult Cardiology (04/07/20 10:51) Acetaminophen Tablet/Caplet (Tylenol T (04/07/20 05:15) Furosemide Tablet (Lasix Tablet) (04/07/20 11:00) Potassium Chloride (Tablet) (Klor Con Ta (04/07/20 11:00) Ambulate 08,12,20 (04/07/20 11:43) Sequential Compression Device Q4H (04/07/20 11:43) Dvt/Vte Risk - Notifiy Physici Q4H (04/07/20 11:43) Patient Visit (04/07/20 ) Pt Eval Moderate Complexity (04/07/20 ) Functional Activities, Ea 15 (04/07/20 ) Patient Visit (04/07/20 ) Speech Sound Lang Comp (04/07/20 ) Fluid Restriction (04/08/20 10:27) Ns Iv 1000 Ml (Sodium Chloride 0.9%) (04/08/20 10:30) BNP (04/09/20 05:00) Basic Metabolic Panel (04/09/20 05:00) Basic Metabolic Panel (04/10/20 05:00) Basic Metabolic Panel (04/11/20 05:00) Basic Metabolic Panel (04/12/20 05:00) Basic Metabolic Panel (04/13/20 05:00) Basic Metabolic Panel (04/14/20 05:00) Basic Metabolic Panel (04/15/20 05:00) Basic Metabolic Panel (04/16/20 05:00) Basic Metabolic Panel (04/17/20 05:00) Basic Metabolic Panel (04/18/20 05:00) Basic Metabolic Panel (04/19/20 05:00) Basic Metabolic Panel (04/20/20 05:00) Basic Metabolic Panel (04/21/20 05:00) Basic Metabolic Panel (04/22/20 05:00) Basic Metabolic Panel (04/23/20 05:00) Basic Metabolic Panel (04/24/20 05:00) Echo W Doppler/Color Flow (04/08/20 11:00) Consult General Surgery (04/08/20 12:05) Patient Visit (04/08/20 ) Gait Training, Ea 15 Min (04/08/20 ) Wheelchair Mgmt/Propulsn 15min (04/08/20 ) Exercise Therap, Ea 15 Min (04/08/20 ) Patient Visit (04/08/20 ) Exercise Therap, Ea 15 Min (04/08/20 ) Rehab Nursing Orders: Ongoing Assess. of Cognitive Status, Ongoing Assess. of Function Status, Bladder Management, Bladder Scan, Bladder Training, Bowel Management, Bowel Training, Disease Management & Educaiton, DVT Prophylaxis, Fall Prevention, Fluid/Electrolyte/Nutrition Mgmt, Infection Prevention, Medication Management & Education, Management of Risks & Complications, Management of Skin Intergrity, Nutrition Management, Pain Management, Patient/Family Support, Safety Management Intensity of Therapy to be met Patient to be seen: Min.3h per day/5 of 7d PT IPOC Problem List: Activity Tolerance, Functional Strength, Safety, Balance, Gait, Transfer, Bed Mobility Treatment Plan: Continue Plan of Care Bed Mobility, Education, Functional Activity Davina, Functional Strength, Group Therapy, Gait, Safety, Therapeutic Exercise, Transfers Treatment Duration: Apr 28, 2020 Frequency: At least 5 of 7 days/Wk (IRF) Estimated Hrs Per Day: 1.5 hours per day OT IPOC Problems: Decreased Activ Tolerance, Decreased UE Strength, Dependent Transfers, Edema, Impaired Bed Mobility, Impaired Funct Balance, Impaired I ADL's, Impaired Self-Care Skills OT Treatment, Training and Edu: Yes Plan of Care: ADL Retraining, Caregiver Training, Concurrent Therapy, Functional Mobility, Group Exercise/Act as Ind, UE Funct Exercise/Act, UE Neuromus Re-Ed/Coord, W/C Management Training Treatment Duration: Apr 28, 2020 Frequency: At least 5 of 7 days/Wk (IRF) Estimated Hrs Per Day: 1.[address] IPOC Speech Therapy Treatment Plan: Discontinue ST Treatment Duration: Apr 07, 2020 Frequency: 1 time per week Estimated Hrs Per Day: .5 hour per day Rolling Mill Operator/Case Mgmt Rolling Mill Operator/Case Managemen: Discharge Planning Dietitian/Surgical Device Sales Representative Dietitian/Surgical Device Sales Representative to monitor nutritional status and make changes and/or recommendations as needed and work with speech pathology on dietary upgrades as the occur. Physician IPOC Medical Issues being managed closely and that require the 24 hour availability of a physician: Severe CHF and COPD limits his endurance and hyponatremia complicated situation with elevated creatinine will need close monitoring for decline in status due to profound debility Medical Issues: Bowel/Bladder Function, DVT Prophylaxis, Falls Precautions, Fluid/Electrolyte/Nutrition Balance, Infection Protection, Pain Management Brief Synthesis of Preadmission Screen, Post-Admission Evaluation, and Therapy Evaluations: PT OT will focus on increasing stamina and prevent falls and energy conservation along with increasing independence in ADL's Medical Prognosis: Guarded Anticipated Length of Stay: 10 days CODI HERCULES DO Apr 08, 2020 05:49
--- NOTE | 2020-04-08 05:49 | PM&R Progress Note ---
Subjective HPI/CC On Admission Date Seen by Provider: Apr 08, 2020 Time Seen by Provider: 10:30 Subjective/Events-last exam Patient has severe weakness Frequent breaks required Very debilitated Urine is concentrated so will start gentle IVF Dyspnea is severe Prognosis guarded Very debilitated Checked meds and labs Conferred with RN Reviewed therapy notes Review of Systems General: Fatigue, Malaise Pulmonary: Dyspnea Neurological: Weakness Objective Exam Vital Signs Vital Signs Date Time Temp Pulse Resp B/P (MAP) Pulse Ox O2 Delivery O2 Flow Rate FiO2 04/09/20 03:19 36.2 56 16 114/56 (75) 96 04/08/20 20:15 Room Air Capillary Refill : Less Than 3 Seconds General Appearance: No Apparent Distress, WD/WN, Chronically ill HEENT: PERRL/EOMI, Normal ENT Inspection, Pharynx Normal Neck: Full Range of Motion, Normal Inspection, Non Tender, Supple, Carotid Bruit Respiratory: Chest Non Tender, Lungs Clear, No Accessory Muscle Use, No Respiratory Distress, Decreased Breath Sounds Cardiovascular: Regular Rate, Rhythm, No Edema, No Gallop, No JVD, No Murmur, Normal Peripheral Pulses Gastrointestinal: Normal Bowel Sounds, No Organomegaly, No Pulsatile Mass, Non Tender, Soft Back: Normal Inspection, No CVA Tenderness, No Vertebral Tenderness Extremity: Normal Capillary Refill, Normal Inspection, Normal Range of Motion, Non Tender, No Calf Tenderness, No Pedal Edema Neurologic/Psychiatric: Alert, Oriented x3, No Motor/Sensory Deficits, catholic priest II- XII Norm as Tested, Abnormal Gait, Depressed Affect, Motor Weakness (generalized all extremities) Skin: Normal Color, Warm/Dry Lymphatic: No Adenopathy Results/Procedures Lab Laboratory Tests 04/08/20 06:11 04/09/20 04:10 Patient resulted labs reviewed. FIM Transfers Therapy Code Descriptions/Definitions Functional [place] Measure: 0=Not Assessed/NA 4=Minimal Assistance 1=Total Assistance 5=Supervision or Setup 2=Maximal Assistance 6=Modified [place] 3=Moderate Assistance 7=Complete IndependenceSCALE: Activities may be completed with or without assistive devices. 4-Xwerddbikp-ywvbmid completes the activity by him/herself with no assistance from a helper. 5-Set-up or Clean-up Assistance-helper sets up or cleans up; patient completes activity. Gage assists only prior to or following the activity. 4-Supervision or Touching Assistance-helper provides verbal cues and/or touch ing/steadying and/or contact guard assistance as patient completes activity. Assistance may be provided throughout the activity or intermittently. 3-Partial/Moderate Assistance-helper does LESS THAN HALF the effort. Gage lifts, holds or supports trunk or limbs, but provides less than half the effort. 2-Substantial/Maximal Assistance-helper does MORE THAN HALF the effort. Gage lifts or holds trunk or limbs and provides more than half the effort. 4-Gjcbqygya-hgsaqe does ALL the effort. Patient does none of the effort to complete the activity. Or, the assistance of 2 or more helpers is required for the patient to complete the activity. If activity was not attempted, code reason: 7-Patient Refused. 9-Not Applicable-not attempted and the patient did not perform the activity bef ore the current illness, exacerbation or injury. 10-Not Attempted due to Environmental Limitations-(lack of equipment, weather restraints, etc.). 88-Not Attempted due to Medical Conditions or Safety Concerns. Roll Left to Right (QC): 3 Sit to Lying (QC): 2 (assist with both legs and to lift trunk; cues for sequencing and task initiation. ) Sit to Stand (QC): 2 (mod assist to stand; required cues to scoot forward, lean forward, push up and mod assist to lift. ) Chair/Afx-tk-Kktvc Xfer(QC): 3 Car Transfer (QC): 88 (Pt unable to safetly attempt this visit. Will attempt tomorrow. ) Gait Training Does the Patient Walk?: Yes Walk 10 feet (QC): 3 (min assist for safety and balance. ) Walk 50 ft with 2 Turns(QC): 88 (pt unable to walk this distance. ) Walk 150 ft (QC): 88 Walking 10ft/uneven surface-QC: 88 Gait Assistive Device: FWW Wheelchair Training Does the Pt Use a Wheelchair?: Yes Distance: 50 ft Wheel 50 ft with 2 turns (QC): 4 Wheel 150 ft (QC): 7 (fatigued) Type of Wheelchair: Manual Stair Training 1 Step (curb) (QC): 88 4 Steps (QC): 88 12 Steps (QC): 88 Balance Picking up an Object (QC): 88 ADL-Treatment Eating (QC): 6 Oral Hygiene (QC): 6 (IND in sit per clinical judgment) Shower/Bathe Self (QC): 3 (mod A: assist with bottom cleansing in stance- pt requires assist for stance, unable to bring hands from walker to pull pants down.) Upper Body Dressing (QC): 3 (min A doffing shirt, pt dons IND. Pt has life vest, requires min A placing ) Lower Body Dressing (QC): 7 (denies washing further LB, does not complete LB dressing.) On/Off Footwear (QC): 6 (completes socks/ shoes with IND in chair.) Toileting Hygiene (QC): 2 (max A bottom hygiene: mod A sit to stand and stands, assist with pulling down pants and wiping bottom.) Assessment/Plan Assessment and Plan Assess & Plan/Chief Complaint Assessment: Debility with myopathy CHF on lifevest HTN CRI HTN HLP Smoker ETOHism Hypoxia Hyponatremia COPD Plan: Monitor creatinine Cardiology consult Monitor pain IRF protocol 04/08/20: Very debilitated Work on stamina Maintain O2 IVF gentle for dehydration Monitor sodium level (1) Debility (2) Acute on chronic kidney failure (3) Alcohol dependence, daily use Status: Acute (4) HTN (hypertension) Status: Acute (5) CAD (coronary artery disease) (6) Hypokalemia (7) Status post fall Status: Acute (8) STEMI (ST elevation myocardial infarction) Status: Acute (9) Hypomagnesemia (10) Multifocal PVCs Status: Acute (11) PAD (peripheral artery disease) (12) Weakness Status: Acute (13) Renal insufficiency Status: Acute (14) CHF (congestive heart failure) Status: Acute CODI HERCULES DO Apr 08, 2020 05:49
[2020-04-08 05:53] VITALS: BP 101/53
[2020-04-08 06:45] LABS: BASOPHILS % (AUTO) 1 % (0-10); EOSINOPHILS # (AUTO) 0.2 10^3/uL (0.0-0.3); EOSINOPHILS % (AUTO) 3 % (0-10); HEMATOCRIT 31 % (40-54); HEMOGLOBIN 10.5 g/dL (13.3-17.7); LYMPHOCYTES # (AUTO) 0.8 10^3/uL (1.0-4.0); LYMPHOCYTES % (AUTO) 11 % (12-44); MEAN CORPUSCULAR HEMOGLOBIN 33 pg (25-34); MEAN CORPUSCULAR HGB CONC 34 g/dL (32-36); MEAN CORPUSCULAR VOLUME 98 fL (80-99); MONOCYTES # (AUTO) 0.8 10^3/uL (0.0-1.0); MONOCYTES % (AUTO) 11 % (0-12); NEUTROPHILS # (AUTO) 5.3 10^3/uL (1.8-7.8); NEUTROPHILS % (AUTO) 74 % (42-75); PLATELET COUNT 275 10^3/uL (130-400); WHITE BLOOD COUNT 7.2 10^3/uL (4.3-11.0)
--- NOTE | 2020-04-08 06:45 | NUR ---
PT. C/O OF NAUSEA. HAD SMALL AMT. YELLOWISH EMESIS.
--- NOTE | 2020-04-08 06:57 | NUR ---
ZOFRAN 4 MG GIVEN S/L.
[2020-04-08] MEDS: FAMOTIDINE 20 MG (PEPCID) TABLET PO SCH ×2 (06:58→20:28)
[2020-04-08 07:04] LABS: ALBUMIN 2.9 GM/DL (3.2-4.5); BILIRUBIN,TOTAL 2.1 MG/DL (0.1-1.0); CALCIUM 8.6 MG/DL (8.5-10.1); CREATININE SERUM 1.49 MG/DL (0.60-1.30); POTASSIUM 5.2 MMOL/L (3.6-5.0); TOTAL PROTEIN 6.2 GM/DL (6.4-8.2)
--- NOTE | 2020-04-08 07:30 | NUR ---
DENIES NAUSEA AT THIS TIME.
[2020-04-08] MEDS: FOLIC ACID 1 MG TAB PO SCH (08:42)
[2020-04-08] MEDS: MAGNESIUM OXIDE (MAG-OX)400 MG TAB PO SCH (08:42)
[2020-04-08] MEDS: MULTIVIT W/MINERALS TAB (THERAGRAN M) PO SCH (08:43)
[2020-04-08] MEDS: CLOPIDOGREL 75 MG (PLAVIX) TABLET PO SCH (08:44)
[2020-04-08] MEDS: THIAMINE 100 MG (VITAMIN B-1) TAB PO SCH (08:44)
[2020-04-08] MEDS: DOCUSATE SODIUM 100 MG (COLACE) CAP PO SCH ×2 (09:56→20:22)
[2020-04-08] MEDS: SENNA W/DOCUSATE (SENOKOT S) TABLET PO SCH ×2 (09:56→20:23)
[2020-04-08] MEDS: polyethylene glycoL POWDER 17 GM (MIRALAX) PACK PO SCH ×2 (09:56→20:23)
[2020-04-08] MEDS: OMEGA 3 (FISH OIL) 1000 MG CAP PO SCH ×2 (09:56→14:05)
[2020-04-08 10:02] VITALS: BP 131/63
[2020-04-08] MEDS: meTOprolol TARTRATE 50 MG (LOPRESSOR) TAB PO SCH ×2 (10:09→20:28)
[2020-04-08] MEDS: RANOLAZINE ER 500 MG TAB (RANEXA) PO SCH ×2 (10:09→20:28)
--- NOTE | 2020-04-08 10:12 | Occupational Ther Daily Note ---
OT Current Status-Daily Note Subjective Pt alert, sitting in recliner. Pt agrees to therapy. No c/o pain only fatigue. Mental Status/Objective Patient Orientation: Person, Place, Time, Situation Attachments: Other-See Comments (Life Vest) ADL-Treatment Pt declined shower and stated that he already had clean clothes on. Pt agreed to sponge bath and to put clothing back on. Pt performed UE sponge bath sitting in recliner, after set up. Pt unable to reach feet to thoroughly cleanse, pt given long handle sponge to cleanse though required assistance to dry. Mod A to stand from chair then assist to cleanse buttocks using FWW, pt stated that he was not able to take his hands off FWW due to fatigue. Pt sat back in chair to doff/don UE clothing min assist, mod assist to hike pants over hips, SBA to thread feet into pants. Pt refused brushing teeth. Pt performed brushing hair independently. Pt takes increased time to complete tasks due to multiple recovery breaks. Therapy Code Descriptions/Definitions Functional [place] Measure: 0=Not Assessed/NA 4=Minimal Assistance 1=Total Assistance 5=Supervision or Setup 2=Maximal Assistance 6=Modified [place] 3=Moderate Assistance 7=Complete IndependenceSCALE: Activities may be completed with or without assistive devices. 3-Nieylzxyfo-hcyzknb completes the activity by him/herself with no assistance from a helper. 5-Set-up or Clean-up Assistance-helper sets up or cleans up; patient completes activity. [place] assists only prior to or following the activity. 4-Supervision or Touching Assistance-helper provides verbal cues and/or touching/steadying and/or contact guard assistance as patient completes activity. Assistance may be provided throughout the activity or intermittently. 3-Partial/Moderate Assistance-helper does LESS THAN HALF the effort. Amber l ifts, holds or supports trunk or limbs, but provides less than half the effort. 2-Substantial/Maximal Assistance-helper does MORE THAN HALF the effort. [place] lifts or holds trunk or limbs and provides more than half the effort. 1-Kztzhmmss-xvkoiy does ALL the effort. Patient does none of the effort to complete the activity. Or, the assistance of 2 or more helpers is required for t he patient to complete the activity. If activity was not attempted, code reason: 7-Patient Refused. 9-Not Applicable-not attempted and the patient did not perform the activity before the current illness, exacerbation or injury. 10-Not Attempted due to Environmental Limitations-(lack of equipment, weather restraints, etc.). 88-Not Attempted due to Medical Conditions or Safety Concerns. Oral Hygiene (QC): 7 Bathing Location: L Arm, R Arm, L Upper Leg, R Upper Leg, L Lower Leg (including foot), R Lower Leg (including foot), Chest, Abdomen Shower/Bathe Self (QC): 3 Upper Body Dressing (QC): 3 Lower Body Dressing (QC): 3 On/Off Footwear: 3 (Nrsg requested pt to have EMMANUEL hose. Assist to don EMMANUEL hose. Pt able to don/doff slippers and doff socks by self.) Toileting Hygiene (QC): 2 (Pt required assistance to manipulate clothing then was able to place urinal by self in sitting and assist in set up and clean up.) Toilet Transfer (QC): 7 Other Treatment PT/OT co-treat ([id number]), skills of 2 clinicians required for skilled instruction and care due to pt's decreased activity tolerance, increased weakness and decreased mobility. Pt stated he had to use restroom and wanted to do it sitting using urinal. Pt had to have mod assist getting up from recliner to hike pants over hip. Pt urine was dark in color, reported to nursing. Pt had min assist getting out of recliner for PT. Pt took 4 steps then sat down without warning, pt had rest breaks showing signs of fatigue. Pt was left in care of PT. OT Short Term Goals Short Term Goals Time Frame: Apr 21, 2020 Eatin Oral hygiene: 6 Toileting hygiene: 3 Shower/bathe self: 3 Upper body dressin Lower body dressin Putting on/taking off footwear: 6 OT Municipal Clerk Goals [facility] Goals Time Frame: Apr 28, 2020 Eating (QC): 6 Oral Hygiene (QC): 6 Toileting Hygiene (QC): 6 Shower/Bathe Self (QC): 6 Upper Body Dressing (QC): 6 Lower Body Dressing (QC): 6 On/Off Footwear (QC): 6 Additional Goals: 1-Demonstrate ADL Tasks, 2-Verbalize Understanding, 3- ImproveStrength/[place] 1=Demonstrate adherence to instructed precautions during ADL tasks. 2=Patient will verbalize/demonstrate understanding of assistive devices/modifications for ADL. 3=Patient will improve strength/tolerance for activity to enable patient to perform ADL's. OT Education/Plan Problem List/Assessment Assessment: Decreased Activ Tolerance, Decreased UE Strength, Impaired Funct Balance, Impaired I ADL's, Impaired Self-Care Skills Discharge Recommendations Plan/Recommendations: Continue POC Treatment Plan/Plan of Care Patient would benefit from OT for education, treatment and training to promote independence in ADL's, mobility, safety and/or upper extremity function for ADL's. Plan of Care: ADL Retraining, Caregiver Training, Concurrent Therapy, Functional Mobility, Group Exercise/Act as Ind, UE Funct Exercise/Act, UE Neuromus Re-Ed/Coord, W/C Management Training Treatment Duration: Apr 28, 2020 Frequency: At least 5 of 7 days/Wk (IRF) Estimated Hrs Per Day: 1.5 hours per day Agreement: Yes Rehab Potential: Fair Time/GCodes Start Time: 09:00 Stop Time: 10:30 Total Time Billed (hr/min): 90 Billed Treatment Time 1 visit- ADL 4 (60 min) FA 2 (30 mins) co-treat with PT ([id number]) individual ([id number]) LYLY PHILLIPS Apr 08, 2020 10:12
--- NOTE | 2020-04-08 10:47 | Progress Note - Cardiology ---
Cardiology SOAP Progress Note Subjective: Sitting up in the w/c at the bedside. He states he feels better today, but still weak. No c/o CP, dyspnea or palpitations. Objective: I&O/Vital Signs 04/09/20 00:00 Intake Total 800 ml Output Total 650 ml Balance 150 ml Weight (Pounds): 186 Weight (Ounces): 8.0 Weight (Calculated Kilograms): 84.405414 Constitutional: AAO x 3, other (thin, frail) Respiratory: No accessory muscle use, No respiratory distress; chest expansion is symmetric, chest is bilaterally symmetric, lungs clear to auscultation Cardiovascular: regular rate-rhythm; No JVD; S1 and S2 Gastrointestional: soft, audible bowel sounds Extremities: other (bilat mod pedal edema) Neurologic/Psychiatric: grossly intact (moves all extremities) Skin: No rash on exposed areas, No ulcerations on exposed areas Results/Procedures: Labs Laboratory Tests 04/09/20 04:10: Sodium Level 126L, Potassium Level 5.0, Chloride Level 92L, Carbon Dioxide Level 23, Anion Gap 11, Blood Urea Nitrogen 20H, Creatinine 1.39H, Estimat Glomerular Filtration Rate 49, BUN/Creatinine Ratio 14, Glucose Level 100, Calcium Level 8.5, B-Type Natriuretic Peptide 1903.1H A/P: Assessment: Generalized weakness of undetermined etiology Hyponatremia/hyperkalemia of undetermined etiology Nausea and vomiting and wgt loss of undetermined etiology Ac renal failure on top of CKD 3 in Jan 2020 and Mar 14. Ac component likely related to vol depletion from vomiting Mild chronic hyponatremia, probably related to chronic diuretic therapy Chronic systolic and diastolic CHF. Echo of 02/19/20: LVEF 40-45%, dilated LA, mod to sev MR, AoV scl w/o stenosis, mod TR, PASP 35-40 mmHg. Echo of 03/18/20: LVEF 25-30%, grade 2 sorenson dysfuction, sever MR, mild , mid AI, mod TR, PASP 50-55 Hg - Life Vest in place Chronic, stable angina, likely due to distal SVG-RCA disease to which multiple, complex interventions have been undertaken without any durable relief of symptoms Coronary artery disease with a history of coronary artery bypass surgery consisting of left internal mammary artery graft to left anterior descending artery, saphenous vein graft to right coronary artery, saphenous vein graft to diagonal artery, saphenous vein graft to first obtuse marginal artery, saphenous vein graft to second obtuse marginal artery in 1999 CAD: H/o CABG and mutiple subsequent PCIs. H/o RCA-SVG perforation on 11/28/18 at time of intervention for SVG occlusion by Dr Miranda. Last card cath on 11/29/18 (Dr Smith at [facility]): 40-50% LMCA, occluded LAD, patent LCX with occluded OMs, occluded RCA, patent HUBBARD-LAD, patent SVG-om, Patent SVG-RCA with patent distal stent (known to be Alp Xience 2.25x8 placed on 08/28/17) Hyperlipidemia being treated with statin therapy Diabetes mellitus, type II. Gastroesophageal reflux. Tobaccoism consisting of smoking cigars. We have asked him to quit Carotid arterial disease, mild, per ultrasonography of June 2017 Minimal ALT elevation, stable on serial evals Plan: Hyponatremia/hyperkalemia of undetermined etiology Stop potassium replacement Monitor lab Replace electrolytes as indicated Continue Life Vest PT/OT as per medical services SHANT KIRBY Apr 08, 2020 10:47
--- NOTE | 2020-04-08 12:11 | Progress Note - Cardiology ---
Cardiology SOAP Progress Note Subjective: Did eat well last night, but had nausea and vomiting this am No cp or palp or syncope Shortness of breath with activity Gen weakness No focal weakness Objective: I&O/Vital Signs 04/08/20 04/08/20 04/08/20 05:53 09:00 10:02 Temp 35.7 Pulse 56 58 Resp 18 B/P (MAP) 101/53 (69) 131/63 (85) Pulse Ox 97 95 O2 Delivery Room Air Room Air Weight (Pounds): 186 Weight (Ounces): 8.0 Weight (Calculated Kilograms): 84.474261 Constitutional: AAO x 3, other (thin, frail) Respiratory: No accessory muscle use, No respiratory distress; chest expansion is symmetric, chest is bilaterally symmetric, lungs clear to auscultation Cardiovascular: regular rate-rhythm; No JVD; S1 and S2 Gastrointestional: soft, audible bowel sounds Extremities: other (bilat mod pedal edema) Neurologic/Psychiatric: grossly intact (moves all extremities) Skin: No rash on exposed areas, No ulcerations on exposed areas Results/Procedures: Labs Laboratory Tests 04/07/20 12:27: White Blood Count 7.6, Red Blood Count 3.36L, Hemoglobin 11.3L, Hematocrit 33L, Mean Corpuscular Volume 99, Mean Corpuscular Hemoglobin 34, Mean Corpuscular Hemoglobin Concent 34, Red Cell Distribution Width 13.5, Platelet Count 339, Mean Platelet Volume 9.1, Immature Granulocyte % (Auto) 0, Neutrophils (%) (Auto) 80H, Lymphocytes (%) (Auto) 9L, Monocytes (%) (Auto) 8, Eosinophils (%) (Auto) 2, Basophils (%) (Auto) 1, Neutrophils # (Auto) 6.0, Lymphocytes # (Auto) 0.7L, Monocytes # (Auto) 0.6, Eosinophils # (Auto) 0.1, Basophils # (Auto) 0.0, Immature Granulocyte # (Auto) 0.0, Sodium Level 127L, Potassium Level 5.4H, Chloride Level 91L, Carbon Dioxide Level 28, Anion Gap 8, Blood Urea Nitrogen 21H, Creatinine 1.50H, Estimat Glomerular Filtration Rate 45, BUN/Creatinine Ratio 14, Glucose Level 101, Calcium Level 9.2, Corrected Calcium 9.7, Total B ilirubin 2.7H, Aspartate Amino Transf (AST/SGOT) 58H, Alanine Aminotransferase (ALT/SGPT) 26, Alkaline Phosphatase 219H, Total Protein 7.1, Albumin 3.4 04/08/20 06:11: White Blood Count 7.2, Red Blood Count 3.14L, Hemoglobin 10.5L, Hematocrit 31L, Mean Corpuscular Volume 98, Mean Corpuscular Hemoglobin 33, Mean Corpuscular Hemoglobin Concent 34, Red Cell Distribution Width 13.6, Platelet Count 275, Mean Platelet Volume 9.0, Immature Granulocyte % (Auto) 0, Neutrophils (%) (Auto) 74, Lymphocytes (%) (Auto) 11L, Monocytes (%) (Auto) 11, Eosinophils (%) (Auto) 3, Basophils (%) (Auto) 1, Neutrophils # (Auto) 5.3, Lymphocytes # (Auto) 0.8L, Monocytes # (Auto) 0.8, Eosinophils # (Auto) 0.2, Basophils # (Auto) 0.0, Immature Granulocyte # (Auto) 0.0, Sodium Level 125*L, Potassium Level 5.2H, Chloride Level 90L, Carbon Dioxide Level 26, Anion Gap 9, Blood Urea Nitrogen 23H, Creatinine 1.49H, Estimat Glomerular Filtration Rate 46, BUN/Creatinine Ratio 15, Glucose Level 97, Calcium Level 8.6, Corrected Calcium 9.5, Total Bilirubin 2.1H, Aspartate Amino Transf (AST/SGOT) 48H, Alanine Aminotransferase (ALT/SGPT) 23, Alkaline Phosphatase 196H, Total Protein 6.2L, Albumin 2.9L A/P: Assessment: Generalized weakness of undetermined etiology Hyponatremia/hyperkalemia of undetermined etiology; nausea and vomiting may be contributin Nausea and vomiting and wgt loss of undetermined etiology Ac renal failure on top of CKD 3 in Jan 2020 and Mar 14. Ac component likely related to vol depletion from vomiting Mild chronic hyponatremia, probably related to chronic diuretic therapy Chronic systolic and diastolic CHF. Echo of 02/19/20: LVEF 40-45%, dilated LA, mod to sev MR, AoV scl w/o stenosis, mod TR, PASP 35-40 mmHg. Echo of 03/18/20: LVEF 25-30%, grade 2 sorenson dysfuction, sever MR, mild , mid AI, mod TR, PASP 50-55 Hg - Life Vest in place Chronic, stable angina, likely due to distal SVG-RCA disease to which multiple, complex interventions have been undertaken without any durable relief of symptoms Coronary artery disease with a history of coronary artery bypass surgery consisting of left internal mammary artery graft to left anterior descending artery, saphenous vein graft to right coronary artery, saphenous vein graft to diagonal artery, saphenous vein graft to first obtuse marginal artery, saphenous vein graft to second obtuse marginal artery in 1999 CAD: H/o CABG and mutiple subsequent PCIs. H/o RCA-SVG perforation on 11/28/18 at time of intervention for SVG occlusion by Dr Miranda. Last card cath on 11/29/18 (Dr Smith at [facility]): 40-50% LMCA, occluded LAD, patent LCX with occluded OMs, occluded RCA, patent HUBBARD-LAD, patent SVG-om, Patent SVG-RCA with patent distal stent (known to be Alp Xience 2.25x8 placed on 08/28/17) Hyperlipidemia being treated with statin therapy Diabetes mellitus, type II. Gastroesophageal reflux. Tobaccoism consisting of smoking cigars. We have asked him to quit Carotid arterial disease, mild, per ultrasonography of June 2017 Minimal ALT elevation, stable on serial evals Plan: Repeat echo Stop potassium replacement Monitor lab Replace electrolytes as indicated Continue Life Vest PT/OT as per Medical services RALPH AMAYA MD FACP FAC CCDS Apr 08, 2020 12:11
[2020-04-08] MEDS: NS IV 1000 ML 1,000 ML IV SCH (12:17)
--- NOTE | 2020-04-08 12:25 | Physical Therapy Daily Note ---
PT Daily Note-Current Subjective Pt sitting in recliner upon arrival. Pt agrees to PT although reported fatigue. Mental Status Patient Orientation: Person, Place, Situation Transfers SCALE: Activities may be completed with or without assistive devices. 8-Gtlgzbvpiz-oefkvof completes the activity by him/herself with no assistance from a helper. 5-Set-up or Clean-up Assistance-helper sets up or cleans up; patient completes activity. [place] assists only prior to or following the activity. 4-Supervision or Touching Assistance-helper provides verbal cues and/or touching/steadying and/or contact guard assistance as patient completes activity. Assistance may be provided throughout the activity or intermittently. 3-Partial/Moderate Assistance-helper does LESS THAN HALF the effort. [place] lifts, holds or supports trunk or limbs, but provides less than half the effort. 2-Substantial/Maximal Assistance-helper does MORE THAN HALF the effort. [place] lifts or holds trunk or limbs and provides more than half the effort. 3-Lxmxgterm-fzuzje does ALL the effort. Patient does none of the effort to complete the activity. Or, the assistance of 2 or more helpers is required for the patient to complete the activity. If activity was not attempted, code reason: 7-Patient Refused. 9-Not Applicable-not attempted and the patient did not perform the activity before the current illness, exacerbation or injury. 10-Not Attempted due to Environmental Limitations-(lack of equipment, weather restraints, etc.). 88-Not Attempted due to Medical Conditions or Safety Concerns. Sit to Stand (QC): 4 Weight Bearing Full Weight Bearing Full Weight Bearing Gait Training Does the Patient Walk?: Yes Distance: 75' Walk 10 feet (QC): 4 Walk 50 ft with 2 Turns(QC): 4 Gait Persons Needed: 1 Gait Assistive Device: FWW Pt fatigues quickly and needs frequent RB. Wheelchair Training Does the Pt Use a Wheelchair?: Yes Wheel 50 ft with 2 turns (QC): 5 Type of Wheelchair: Manual Pt needs VC on how to turn as well as propel WCH. Treatments TF to standing and amb. in hallway with WCH following due to fatigue, frequent RB. Pt also focuses on WCH mobility due to limited amb. Pt completes Seated Ex before returning to room. Pt returns to recliner to rest, all needs met & call light in hand. Assessment Current Status: Good Progress Pt fatigues easily & sits quickly, frequent RB. PT Short Term Goals Short Term Goals Time Frame: Apr 14, 2020 Sit to lyin Lying to sitting on side of be: 4 Sit to stand: 4 Walk 150 feet: 4 Wheel 150 feet: 6 PT Senior Living Goals Chronic Specialist Goals PT Senior Living Goals Time Frame: Apr 28, 2020 Roll Left & Right (QC): 6 Sit to Lying (QC): 6 Lying-Sitting on Side/Bed(QC): 6 Sit to Stand (QC): 6 Chair/Zqv-wz-Vmlty Xfer(QC): 6 Toilet Transfer (QC): 6 Car Transfer (QC): 5 Does the Patient Walk: Yes Walk 10 feet (QC): 6 Walk 50ft with 2 Turns (QC): 6 Walk 150 ft (QC): 6 Walking 10ft on Uneven Surface: 5 1 Step (curb) (QC): 5 4 Steps (QC): 4 12 Steps (QC): 10 Picking up an Object (QC): 3 Wheel 50 feet with 2 turns (QC: 6 Wheel 150 feet: 6 PT Plan Problem List Problem List: Activity Tolerance, Functional Strength, Safety, Balance, Gait, Transfer Treatment/Plan Treatment Plan: Continue Plan of Care Treatment Plan: Bed Mobility, Education, Functional Activity Davina, Functional Strength, Group Therapy, Gait, Safety, Therapeutic Exercise, Transfers Treatment Duration: Apr 28, 2020 Frequency: At least 5 of 7 days/Wk (IRF) Estimated Hrs Per Day: 1.5 hours per day Patient and/or Family Agrees t: Yes Safety Risks/Education Patient Education: Gait Training, Transfer Techniques, Correct Positioning, W/C Management, Safety Issues Teaching Recipient: Patient Teaching Methods: Discussion Response to Teaching: Verbalize Understanding Time/GCodes Time In: 1000 Time Out: 1100 Total Billed Treatment Time: 60 Total Billed Treatment 1, GT x2 (25m), WCH (15m) & EX (20m) RADHA RENTERIA PTA Apr 08, 2020 12:25
--- NOTE | 2020-04-08 14:04 | NUR ---
PT. VOIDED 250 CC DARK BROWNISH/COFFEE COLORED DARK URINE. DR. HERCULES NOTIFIED. IV FLUIDS CONT. WITH NORMAL SALINE AT 50CC/HR.
--- NOTE | 2020-04-08 14:07 | NUR ---
CALLED AND REQUESTED PT. RECEIVES REGLAN 5 MG EVERY MORNING BEFORE BREAKFAST. THIS PT. WILL GIVE NIGHT NURSE REPORT ON THIS. Addendum: 04/08/20 at 1412 by HUNG DOS SANTOS RN THIS NURSE WILL GIVE MESSAGE TO NIGHT NURSE.
--- NOTE | 2020-04-08 14:47 | NUR ---
RD ASSESSMENT PMHx: CAD; HTN; HLD; DM; COPD; GERD PT INTERACTION: Pt was awake and pleasant during nutrition assessment. Pt states current appetite is fair. Note avg PO intake 33% x1d, per chart review. Pt states following a regular diet at home, and has no issues with chewing/swallowing food. Pt states some recent issues with vomiting. Pt states no issues with constipation or diarrhea, and that their last BM was 04/07. Note pt currently on bowel regimen of colace BID; senna BID; and miralax BID, per chart review. Pt states recent 26# wt loss x5d. "I went from 198# to 172# in 5days." Note recent 4# wt gain x3w, per chart review. When asked about DM management: "It's good, as far as I can tell." Note unable to determine recent HbA1c, per chart review. ABNORMAL NUTRITION-RELATED LAB VALUES LOW: Na 125; Cl 90; Pro 6.2; alb 2.1; HIGH: K 5.2; BUN 23; cr 1.49; bili 2.1; AST 48; alkphos 196 Est. kcal needs: 1550 kcal | 20 kcal/kg Est. Pro needs: 93 g Pro | 1.2 g Pro/kg PES STATEMENT: Inadequate oral intake (NI-2.1) related to loss of appetite | vomiting as evidenced by pt interview | avg PO intake 33% x1d INTERVENTION: Continue with current diet order of Regular diet. Pt may benefit from consistent CHO restriction if blood glucose levels become elevated. Pt may benefit from nutrition supplementation if PO intake declines. Offered diet education on DM management, but pt declined at this time. Will attempt to offer again prior to discharge. Will continue to follow and reassess as pt needs, intake, and status change. Zachary Woods, MS RD LD
--- NOTE | 2020-04-08 14:58 | Physical Therapy Daily Note ---
PT Daily Note-Current Subjective Pt sitting in recliner upon arrival. Pt agrees to PT. Pain Location: No Pain Reported Mental Status Patient Orientation: Person, Place, Situation Transfers SCALE: Activities may be completed with or without assistive devices. 9-Rtonmymtef-yztjtwz completes the activity by him/herself with no assistance from a helper. 5-Set-up or Clean-up Assistance-helper sets up or cleans up; patient completes activity. [place] assists only prior to or following the activity. 4-Supervision or Touching Assistance-helper provides verbal cues and/or touching/steadying and/or contact guard assistance as patient completes activity. Assistance may be provided throughout the activity or intermittently. 3-Partial/Moderate Assistance-helper does LESS THAN HALF the effort. [place] lifts, holds or supports trunk or limbs, but provides less than half the effort. 2-Substantial/Maximal Assistance-helper does MORE THAN HALF the effort. [place] lifts or holds trunk or limbs and provides more than half the effort. 5-Jxbcatcub-idmrzp does ALL the effort. Patient does none of the effort to complete the activity. Or, the assistance of 2 or more helpers is required for the patient to complete the activity. If activity was not attempted, code reason: 7-Patient Refused. 9-Not Applicable-not attempted and the patient did not perform the activity before the current illness, exacerbation or injury. 10-Not Attempted due to Environmental Limitations-(lack of equipment, weather restraints, etc.). 88-Not Attempted due to Medical Conditions or Safety Concerns. Weight Bearing Full Weight Bearing Full Weight Bearing Exercises Supine Ex: Ankle pumps, Quad Set, Glut sets, Heel Slides, Straight leg raise, Hip abd/add Supine Reps: 15 Seated Therapy Exercises: Ankle pumps, Long arc quads, Hip flexion, Kicking activity Seated Reps: 15 Treatments CONTACT LENS BLOCKER gives and reviews written HEP for Supine & Seated Ex. Pt resting in recliner at end of tx, all needs met, call light in hand. Assessment Current Status: Good Progress Pt khari. tx well. PT Short Term Goals Short Term Goals Time Frame: Apr 14, 2020 Sit to lyin Lying to sitting on side of be: 4 Sit to stand: 4 Walk 150 feet: 4 Wheel 150 feet: 6 PT Alf Goals Photographic Aide Goals PT Photographic Aide Goals Time Frame: Apr 28, 2020 Roll Left & Right (QC): 6 Sit to Lying (QC): 6 Lying-Sitting on Side/Bed(QC): 6 Sit to Stand (QC): 6 Chair/Gev-np-Aardi Xfer(QC): 6 Toilet Transfer (QC): 6 Car Transfer (QC): 5 Does the Patient Walk: Yes Walk 10 feet (QC): 6 Walk 50ft with 2 Turns (QC): 6 Walk 150 ft (QC): 6 Walking 10ft on Uneven Surface: 5 1 Step (curb) (QC): 5 4 Steps (QC): 4 12 Steps (QC): 10 Picking up an Object (QC): 3 Wheel 50 feet with 2 turns (QC: 6 Wheel 150 feet: 6 PT Plan Problem List Problem List: Activity Tolerance, Functional Strength Treatment/Plan Treatment Plan: Continue Plan of Care Treatment Plan: Bed Mobility, Education, Functional Activity [place], Functional Strength, Group Therapy, Gait, Safety, Therapeutic Exercise, Transfers Treatment Duration: Apr 28, 2020 Frequency: At least 5 of 7 days/Wk (IRF) Estimated Hrs Per Day: 1.5 hours per day Patient and/or Family Agrees t: Yes Safety Risks/Education Patient Education: Correct Positioning, Safety Issues Teaching Recipient: Patient Teaching Methods: Discussion Response to Teaching: Verbalize Understanding Time/GCodes Time In: 1345 Time Out: 1415 Total Billed Treatment Time: 30 Total Billed Treatment 1, EX x2 (30m) RADHA RENTERIA CONTACT LENS BLOCKER Apr 08, 2020 14:58
[2020-04-08 16:03] VITALS: BP 109/55
[2020-04-08] MEDS: METOCLOPRAMIDE 5 MG (REGLAN) TAB PO PRN (18:07)
[2020-04-08 20:27] VITALS: BP 113/62
[2020-04-08] MEDS: MELATONIN 3 MG TABLET PO PRN (20:28)
[2020-04-08] MEDS: ASPIRIN E.C. 81 MG (ECOTRIN) TAB PO SCH (20:28)
[2020-04-09 03:19] VITALS: BP 114/56
[2020-04-09] MEDS: ACETAMINOPHEN 500 MG TAB (TYLENOL) PO PRN (03:19)
[2020-04-09] MEDS: ISOSORBIDE MONONITRATE 60 MG (IMDUR) TAB PO SCH (03:19)
[2020-04-09 04:51] LABS: CALCIUM 8.5 MG/DL (8.5-10.1)
[2020-04-09 04:56] LABS: CREATININE SERUM 1.39 MG/DL (0.60-1.30)
[2020-04-09] MEDS: METOCLOPRAMIDE 5 MG (REGLAN) TAB PO PRN (06:27)
[2020-04-09] MEDS: MULTIVIT W/MINERALS TAB (THERAGRAN M) PO SCH (06:28)
[2020-04-09] MEDS: NS IV 1000 ML 1,000 ML IV SCH (06:31)
[2020-04-09] MEDS: OMEGA 3 (FISH OIL) 1000 MG CAP PO SCH ×3 (08:23→18:24)
[2020-04-09] MEDS: MAGNESIUM OXIDE (MAG-OX)400 MG TAB PO SCH (08:23)
[2020-04-09] MEDS: FOLIC ACID 1 MG TAB PO SCH (08:23)
[2020-04-09] MEDS: FUROSEMIDE 20 MG (LASIX) TAB PO SCH (08:23)
[2020-04-09] MEDS: DOCUSATE SODIUM 100 MG (COLACE) CAP PO SCH ×2 (08:24→22:11)
[2020-04-09] MEDS: THIAMINE 100 MG (VITAMIN B-1) TAB PO SCH (08:24)
[2020-04-09] MEDS: SENNA W/DOCUSATE (SENOKOT S) TABLET PO SCH ×2 (08:24→22:10)
[2020-04-09] MEDS: FAMOTIDINE 20 MG (PEPCID) TABLET PO SCH ×2 (08:24→22:11)
[2020-04-09] MEDS: RANOLAZINE ER 500 MG TAB (RANEXA) PO SCH ×2 (08:25→22:11)
[2020-04-09] MEDS: polyethylene glycoL POWDER 17 GM (MIRALAX) PACK PO SCH ×2 (08:25→22:00)
[2020-04-09] MEDS: CLOPIDOGREL 75 MG (PLAVIX) TABLET PO SCH (08:25)
[2020-04-09] MEDS: meTOprolol TARTRATE 50 MG (LOPRESSOR) TAB PO SCH ×2 (08:25→22:11)
--- NOTE | 2020-04-09 09:31 | Occupational Ther Daily Note ---
OT Current Status-Daily Note Subjective Pt alert, lying in bed. Pt agrees to therapy. No c/o pain at this time. Pt c/o B LE weakness this morning. Mental Status/Objective Patient Orientation: Person, Place, Time, Situation Attachments: IV ADL-Treatment Pt declined shower, sponge bath or clothing. Pt stated that his son is bringing clean clothing this am. Therapy Code Descriptions/Definitions Functional [place] Measure: 0=Not Assessed/NA 4=Minimal Assistance 1=Total Assistance 5=Supervision or Setup 2=Maximal Assistance 6=Modified [place] 3=Moderate Assistance 7=Complete IndependenceSCALE: Activities may be completed with or without assistive devices. 0-Ierkgipolp-pvqwhgv completes the activity by him/herself with no assistance from a helper. 5-Set-up or Clean-up Assistance-helper sets up or cleans up; patient completes activity. [place] assists only prior to or following the activity. 4-Supervision or Touching Assistance-helper provides verbal cues and/or touching/steadying and/or contact guard assistance as patient completes activity . Assistance may be provided throughout the activity or intermittently. 3-Partial/Moderate Assistance-helper does LESS THAN HALF the effort. [place] lifts, holds or supports trunk or limbs, but provides less than half the effort. 2-Substantial/Maximal Assistance-helper does MORE THAN HALF the effort. [place] lifts or holds trunk or limbs and provides more than half the effort. 0-Vohdgerwy-amcxas does ALL the effort. Patient does none of the effort to complete the activity. Or, the assistance of 2 or more helpers is required for the patient to complete the activity. If activity was not attempted, code reason: 7-Patient Refused. 9-Not Applicable-not attempted and the patient did not perform the activity before the current illness, exacerbation or injury. 10-Not Attempted due to Environmental Limitations-(lack of equipment, weather restraints, etc.). 88-Not Attempted due to Medical Conditions or Safety Concerns. Oral Hygiene (QC): 7 Shower/Bathe Self (QC): 7 Upper Body Dressing (QC): 7 Lower Body Dressing (QC): 7 Other Treatment Pt takes increased time to complete all tasks due to low activity tolerance and slow movements. Mod A for supine to EOB with HOB elevated. Pt c/o weakness in B LE and stated that he was not able to stand very well. SPT with shuffling feet, pt's knees buckled throughout transfer requiring chair to be brought to pt for sitting. Pt able to adjust self in chair for comfort. Pt completed medium resistance theraband B UE exercises. HEP and medium resistance theraband given to pt for use in room. Skilled instruction for technique and modifications for theraband exercises. 2 sets 5 reps completed due to pt's increased fatigue. After session, pt lying back in chair with call light/phone in reach. All needs met in room. OT Short Term Goals Short Term Goals Time Frame: Apr 21, 2020 Eatin Oral hygiene: 6 Toileting hygiene: 3 Shower/bathe self: 3 Upper body dressin Lower body dressin Putting on/taking off footwear: 6 OT Integration Architect Goals [facility] Goals Time Frame: Apr 28, 2020 Eating (QC): 6 Oral Hygiene (QC): 6 Toileting Hygiene (QC): 6 Shower/Bathe Self (QC): 6 Upper Body Dressing (QC): 6 Lower Body Dressing (QC): 6 On/Off Footwear (QC): 6 Additional Goals: 1-Demonstrate ADL Tasks, 2-Verbalize Understanding, 3- ImproveStrength/[place] 1=Demonstrate adherence to instructed precautions during ADL tasks. 2=Patient will verbalize/demonstrate understanding of assistive devices/modifications for ADL. 3=Patient will improve strength/tolerance for activity to enable patient to perform ADL's. OT Education/Plan Problem List/Assessment Assessment: Decreased Activ Tolerance, Decreased UE Strength, Impaired Funct Balance, Impaired Self-Care Skills, Restricted Funct UE ROM Discharge Recommendations Plan/Recommendations: Continue POC Treatment Plan/Plan of Care Patient would benefit from OT for education, treatment and training to promote independence in ADL's, mobility, safety and/or upper extremity function for ADL's. Plan of Care: ADL Retraining, Caregiver Training, Concurrent Therapy, Functional Mobility, Group Exercise/Act as Ind, UE Funct Exercise/Act, UE Neuromus Re-Ed/Coord, W/C Management Training Treatment Duration: Apr 28, 2020 Frequency: At least 5 of 7 days/Wk (IRF) Estimated Hrs Per Day: 1.5 hours per day Agreement: Yes Rehab Potential: Fair Time/GCodes Start Time: 08:30 Stop Time: 09:30 Total Time Billed (hr/min): 60 Billed Treatment Time 1 visit-FA 2 (30 min) EX 2 (30 min) LYLY PHILLIPS Apr 09, 2020 09:31
--- NOTE | 2020-04-09 10:44 | PM&R Progress Note ---
Subjective HPI/CC On Admission Date Seen by Provider: Apr 09, 2020 Time Seen by Provider: 10:45 Subjective/Events-last exam 04/09/20: Very debilitated Tires out easily Lifevest maintained No BM yesterday Wants to know his blood type and since he appears to be very pale and hgb is low will type and screen to prepare for transfusion if needed BNP is very elevated Stopping IVF Had N/V and given Reglan Patient has severe weakness Frequent breaks required Very debilitated Urine is concentrated so will start gentle IVF Dyspnea is severe Prognosis guarded Very debilitated Checked meds and labs Conferred with RN Reviewed therapy notes Review of Systems General: Fatigue, Malaise Pulmonary: Dyspnea Objective Exam Vital Signs Vital Signs Date Time Temp Pulse Resp B/P (MAP) Pulse Ox O2 Delivery O2 Flow Rate FiO2 04/09/20 20:30 Room Air 04/09/20 16:14 36.2 52 16 115/63 (80) 97 Capillary Refill : Less Than 3 Seconds General Appearance: No Apparent Distress, WD/WN, Chronically ill HEENT: PERRL/EOMI, Normal ENT Inspection, Pharynx Normal Neck: Full Range of Motion, Normal Inspection, Non Tender, Supple, Carotid Bru it Respiratory: Chest Non Tender, Lungs Clear, No Accessory Muscle Use, No Respiratory Distress, Decreased Breath Sounds Cardiovascular: Regular Rate, Rhythm, No Edema, No Gallop, No JVD, No Murmur, Normal Peripheral Pulses Gastrointestinal: Normal Bowel Sounds, No Organomegaly, No Pulsatile Mass, Non Tender, Soft Back: Normal Inspection, No CVA Tenderness, No Vertebral Tenderness Extremity: Normal Capillary Refill, Normal Inspection, Normal Range of Motion, Non Tender, No Calf Tenderness, No Pedal Edema Neurologic/Psychiatric: Alert, Oriented x3, No Motor/Sensory Deficits, graves registration specialist II- XII Norm as Tested, Abnormal Gait, Depressed Affect, Motor Weakness (generalized all extremities) Skin: Normal Color, Warm/Dry Lymphatic: No Adenopathy Results/Procedures Lab Patient resulted labs reviewed. FIM Transfers Therapy Code Descriptions/Definitions Functional [place] Measure: 0=Not Assessed/NA 4=Minimal Assistance 1=Total Assistance 5=Supervision or Setup 2=Maximal Assistance 6=Modified [place] 3=Moderate Assistance 7=Complete IndependenceSCALE: Activities may be completed with or without assistive devices. 9-Etsrlyydox-fspdpby completes the activity by him/herself with no assistance fr om a helper. 5-Set-up or Clean-up Assistance-helper sets up or cleans up; patient completes activity. [place] assists only prior to or following the activity. 4-Supervision or Touching Assistance-helper provides verbal cues and/or touching/steadying and/or contact guard assistance as patient completes activity. Assistance may be provided throughout the activity or intermittently. 3-Partial/Moderate Assistance-helper does LESS THAN HALF the effort. [place] lifts, holds or supports trunk or limbs, but provides less than half the effort. 2-Substantial/Maximal Assistance-helper does MORE THAN HALF the effort. [place] lifts or holds trunk or limbs and provides more than half the effort. 7-Kktdbixgw-eqwkbm does ALL the effort. Patient does none of the effort to complete the activity. Or, the assistance of 2 or more helpers is required for the patient to complete the activity. If activity was not attempted, code reason: 7-Patient Refused. 9-Not Applicable-not attempted and the patient did not perform the activity before the current illness, exacerbation or injury. 10-Not Attempted due to Environmental Limitations-(lack of equipment, weather restraints, etc.). 88-Not Attempted due to Medical Conditions or Safety Concerns. Roll Left to Right (QC): 3 Sit to Lying (QC): 2 (assist with both legs and to lift trunk; cues for sequencing and task initiation. ) Sit to Stand (QC): 4 Chair/Nci-us-Ekzpa Xfer(QC): 3 Car Transfer (QC): 88 (Pt unable to safetly attempt this visit. Will attempt tomorrow. ) Gait Training Does the Patient Walk?: Yes Distance: 75' Walk 10 feet (QC): 4 Walk 50 ft with 2 Turns(QC): 4 Walk 150 ft (QC): 88 Walking 10ft/uneven surface-QC: 88 Gait Persons Needed: 1 Gait Assistive Device: FWW Wheelchair Training Does the Pt Use a Wheelchair?: Yes Distance: 50 ft Wheel 50 ft with 2 turns (QC): 5 Wheel 150 ft (QC): 7 (fatigued) Type of Wheelchair: Manual Stair Training 1 Step (curb) (QC): 88 4 Steps (QC): 88 12 Steps (QC): 88 Balance Picking up an Object (QC): 88 ADL-Treatment Eating (QC): 6 Oral Hygiene (QC): 7 Bathing Location: L Arm, R Arm, L Upper Leg, R Upper Leg, L Lower Leg (including foot), R Lower Leg (including foot), Chest, Abdomen Shower/Bathe Self (QC): 7 Upper Body Dressing (QC): 7 Lower Body Dressing (QC): 7 On/Off Footwear (QC): 3 (Nrsg requested pt to have EMMANUEL hose. Assist to don EMMANUEL hose. Pt able to don/doff slippers and doff socks by self.) Toileting Hygiene (QC): 2 (Pt required assistance to manipulate clothing then was able to place urinal by self in sitting and assist in set up and clean up.) Toilet Transfer (QC): 7 Assessment/Plan Assessment and Plan Assess & Plan/Chief Complaint Assessment: Debility with myopathy CHF on lifevest HTN CRI HTN HLP Smoker ETOHism Hypoxia Hyponatremia COPD Plan: Monitor creatinine Cardiology consult Monitor pain IRF protocol 04/08/20: Very debilitated Work on stamina Maintain O2 IVF gentle for dehydration Monitor sodium level 04/09/20: Monitor sodium level Monitor creatinine Type and screen (1) Debility (2) Acute on chronic kidney failure (3) Alcohol dependence, daily use Status: Acute (4) HTN (hypertension) Status: Acute (5) CAD (coronary artery disease) (6) Hypokalemia (7) Status post fall Status: Acute (8) STEMI (ST elevation myocardial infarction) Status: Acute (9) Hypomagnesemia (10) Multifocal PVCs Status: Acute (11) PAD (peripheral artery disease) (12) Weakness Status: Acute (13) Renal insufficiency Status: Acute (14) CHF (congestive heart failure) Status: Acute CODI HERCULES DO Apr 09, 2020 10:44
--- NOTE | 2020-04-09 11:01 | Physical Therapy Daily Note ---
PT Daily Note-Current Subjective Pt. in lift recline chair, agrees to Rx but c/o repeatedly of fatigue during Rx Pain Location: No Pain Reported Mental Status Patient Orientation: Person, Place Attachments: Other-See Comments (halter monitor), IV Transfers SCALE: Activities may be completed with or without assistive devices. 0-Zfdehfmvyn-djaevsy completes the activity by him/herself with no assistance from a helper. 5-Set-up or Clean-up Assistance-helper sets up or cleans up; patient completes activity. [place] assists only prior to or following the activity. 4-Supervision or Touching Assistance-helper provides verbal cues and/or touching/steadying and/or contact guard assistance as patient completes activity. Assistance may be provided throughout the activity or intermittently. 3-Partial/Moderate Assistance-helper does LESS THAN HALF the effort. [place] lifts, holds or supports trunk or limbs, but provides less than half the effort. 2-Substantial/Maximal Assistance-helper does MORE THAN HALF the effort. [place] lifts or holds trunk or limbs and provides more than half the effort. 0-Emgcseorl-rzjrxd does ALL the effort. Patient does none of the effort to complete the activity. Or, the assistance of 2 or more helpers is required for the patient to complete the activity. If activity was not attempted, code reason: 7-Patient Refused. 9-Not Applicable-not attempted and the patient did not perform the activity before the current illness, exacerbation or injury. 10-Not Attempted due to Environmental Limitations-(lack of equipment, weather restraints, etc.). 88-Not Attempted due to Medical Conditions or Safety Concerns. Roll Left & Right (QC): 4 Sit to Lying (QC): 3 Lying to Sitting/Side of Bed(Q: 3 Sit to Stand (QC): 4 Chair/Sbn-kv-Xzhch Xfer(QC): 4 much of Rx spent on sup to sit and sit to sup , pt. with poor trunk and UE strength and poor coordination of movement. Pt. fatigues mid TRF and requires assist of mod to complete and guide through, sit to stand also needs min assist and guidance to bring nose over toes Weight Bearing Full Weight Bearing Full Weight Bearing Gait Training Walk 10 feet (QC): 4 Gait Persons Needed: 1 (plus w/c assist and IV assist) Gait Assistive Device: FWW pt. walks approx 12-15 ft x 4 with min assist, heavy wt bearing on FWW but quickly and often with no warning drops , has to be followed closely with w/c as he gives no warning Wheelchair Training Does the Pt Use a Wheelchair?: Yes Wheel 50 ft with 2 turns (QC): 4 Type of Wheelchair: Manual instructed in braking chair Exercises Supine Ex: Bridging, Ankle pumps, Rolling, Heel Slides, Short Arc Quads, Hip abd/add Supine Reps: 10 Seated Therapy Exercises: Ankle pumps, Sit to stand, Long arc quads, Hip flexion, Hip abd/add Seated Reps: 12 Assessment Current Status: Good Progress fatigues very quickly and requires frequent rest breaks PT Short Term Goals Short Term Goals Time Frame: Apr 14, 2020 Sit to lyin Lying to sitting on side of be: 4 Sit to stand: 4 Walk 150 feet: 4 Wheel 150 feet: 6 PT Prison Goals Wirer Maintenance Goals PT Wirer Maintenance Goals Time Frame: Apr 28, 2020 Roll Left & Right (QC): 6 Sit to Lying (QC): 6 Lying-Sitting on Side/Bed(QC): 6 Sit to Stand (QC): 6 Chair/Wey-zb-Mnyvx Xfer(QC): 6 Toilet Transfer (QC): 6 Car Transfer (QC): 5 Does the Patient Walk: Yes Walk 10 feet (QC): 6 Walk 50ft with 2 Turns (QC): 6 Walk 150 ft (QC): 6 Walking 10ft on Uneven Surface: 5 1 Step (curb) (QC): 5 4 Steps (QC): 4 12 Steps (QC): 10 Picking up an Object (QC): 3 Wheel 50 feet with 2 turns (QC: 6 Wheel 150 feet: 6 PT Plan Treatment/Plan Treatment Plan: Continue Plan of Care Treatment Plan: Bed Mobility, Education, Functional Activity [place], Functional Strength, Group Therapy, Gait, Safety, Therapeutic Exercise, Transfers Treatment Duration: Apr 28, 2020 Frequency: At least 5 of 7 days/Wk (IRF) Estimated Hrs Per Day: 1.5 hours per day Patient and/or Family Agrees t: Yes Safety Risks/Education Patient Education: Gait Training, Transfer Techniques, Correct Positioning, W/C Management, Disease Process, Safety Issues Teaching Recipient: Patient Teaching Methods: Demonstration, Discussion Response to Teaching: Verbalize Understanding, Return Demonstration, Reinforcement Needed Time/GCodes Time In: 1000 Time Out: 1100 Total Billed Treatment Time: 60 Total Billed Treatment 1,FA35m,GT12m,EX13m KELLY BURDEN SKIN GRADER Apr 09, 2020 11:01
--- NOTE | 2020-04-09 11:27 | Progress Note ---
Subjective Date Seen by a Provider: Apr 09, 2020 Time Seen by a Provider: 11:00 Subjective/Events-last exam doing ok. tolerating most food and liquids. still weak from rehab perspective. Objective Exam Vital Signs Date Time Temp Pulse Resp B/P (MAP) Pulse Ox O2 Delivery O2 Flow Rate FiO2 04/09/20 03:19 36.2 56 16 114/56 (75) 96 04/08/20 20:27 54 113/62 (79) 04/08/20 20:15 Room Air 04/08/20 16:03 36.3 54 14 109/55 (73) 96 Room Air I & O 04/09/20 07:00 Intake Total 2000 ml Output Total 1050 ml Balance 950 ml Capillary Refill : Less Than 3 Seconds General Appearance: No Apparent Distress HEENT: PERRL/EOMI Neck: Full Range of Motion Respiratory: Decreased Breath Sounds, Wheezing Cardiovascular: Regular Rate, Rhythm Gastrointestinal: normal bowel sounds, non tender, soft Extremity: Normal Capillary Refill Neurologic/Psychiatric: Alert, Oriented x3 Skin: Normal Color Lymphatic: No Adenopathy Results Lab Laboratory Tests 04/09/20 04:10: Sodium Level 126L, Potassium Level 5.0, Chloride Level 92L, Carbon Dioxide Level 23, Anion Gap 11, Blood Urea Nitrogen 20H, Creatinine 1.39H, Estimat Glomerular Filtration Rate 49, BUN/Creatinine Ratio 14, Glucose Level 100, Calcium Level 8.5, B-Type Natriuretic Peptide 1903.1H Assessment/Plan Assessment/Plan Assess & Plan/Chief Complaint GERD, dysphagia. intermediate risk for procedure per cardiology. continue diet as tolerated. will plan for EGD with dilatation on sunday(04/12) Clinical Quality Measures DVT/VTE Risk/Contraindication: Risk Factor Score Per Nursin RFS Level Per Nursing on Admit: 4+=Very High KADEN SCOTT MD Apr 09, 2020 11:27
--- NOTE | 2020-04-09 13:19 | Occupational Ther Daily Note ---
OT Current Status-Daily Note Subjective Pt alert, sitting in recliner. Pt agrees to therapy. No c/o pain at this time. Mental Status/Objective Patient Orientation: Person, Place, Time, Situation Attachments: IV, Other-See Comments (Life Vest) ADL-Treatment Therapy Code Descriptions/Definitions Functional [place] Measure: 0=Not Assessed/NA 4=Minimal Assistance 1=Total Assistance 5=Supervision or Setup 2=Maximal Assistance 6=Modified [place] 3=Moderate Assistance 7=Complete IndependenceSCALE: Activities may be completed with or without assistive devices. 2-Obbroyifmf-ztcttrh completes the activity by him/herself with no assistance from a helper. 5-Set-up or Clean-up Assistance-helper sets up or cleans up; patient completes activity. [place] assists only prior to or following the activity. 4-Supervision or Touching Assistance-helper provides verbal cues and/or touching/steadying and/or contact guard assistance as patient completes activity. Assistance may be provided throughout the activity or intermittently. 3-Partial/Moderate Assistance-helper does LESS THAN HALF the effort. [place] lifts, holds or supports trunk or limbs, but provides less than half the effort. 2-Substantial/Maximal Assistance-helper does MORE THAN HALF the effort. [place] lifts or holds trunk or limbs and provides more than half the effort. 0-Ggsvtbcqs-wpiqpx does ALL the effort. Patient does none of the effort to complete the activity. Or, the assistance of 2 or more helpers is required for the patient to complete the activity. If activity was not attempted, code reason: 7-Patient Refused. 9-Not Applicable-not attempted and the patient did not perform the activity before the current illness, exacerbation or injury. 10-Not Attempted due to Environmental Limitations-(lack of equipment, weather restraints, etc.). 88-Not Attempted due to Medical Conditions or Safety Concerns. Eating (QC): 6 Toileting Hygiene (QC): 3 Toilet Transfer (QC): 3 Other Treatment Pt completed B UE strengthening tasks working on B UE gross and B fine motor strengthening utilizing w1# wrist weights and resistive clothespins. Pt fatigues quickly and is only able to use wrist wts for one set of resistive clothespins. Pt able to complete off and on placement of clothespins with each hand. Pt took increased time to complete tasks due to slow movements, low activity tolerance and nrsg in room to stop IV fluids. Pt then requested to use toilet. Assist x2 one for transfer and one for safety due to pt's tendency to sit at any time without warning. Pt was able to SPT using FWW with min A to and from w/c and toilet. Assist needed for clothing manipulation. After session, pt's completing own set up of lunch. Call light/phone in reach. All needs met in room. OT Short Term Goals Short Term Goals Time Frame: Apr 21, 2020 Eatin Oral hygiene: 6 Toileting hygiene: 3 Shower/bathe self: 3 Upper body dressin Lower body dressin Putting on/taking off footwear: 6 OT Professor Of Mathematics Goals Professor Of Mathematics Goals Time Frame: Apr 28, 2020 Eating (QC): 6 Oral Hygiene (QC): 6 Toileting Hygiene (QC): 6 Shower/Bathe Self (QC): 6 Upper Body Dressing (QC): 6 Lower Body Dressing (QC): 6 On/Off Footwear (QC): 6 Additional Goals: 1-Demonstrate ADL Tasks, 2-Verbalize Understanding, 3- ImproveStrength/[place] 1=Demonstrate adherence to instructed precautions during ADL tasks. 2=Patient will verbalize/demonstrate understanding of assistive devices/modifications for ADL. 3=Patient will improve strength/tolerance for activity to enable patient to perform ADL's. OT Education/Plan Problem List/Assessment Assessment: Decreased Activ Tolerance, Impaired Coordination, Impaired Funct Balance, Impaired Self-Care Skills Discharge Recommendations Plan/Recommendations: Continue POC Treatment Plan/Plan of Care Patient would benefit from OT for education, treatment and training to promote independence in ADL's, mobility, safety and/or upper extremity function for ADL's. Plan of Care: ADL Retraining, Caregiver Training, Concurrent Therapy, Functional Mobility, Group Exercise/Act as Ind, UE Funct Exercise/Act, UE Neuromus Re-Ed/Coord, W/C Management Training Treatment Duration: Apr 28, 2020 Frequency: At least 5 of 7 days/Wk (IRF) Estimated Hrs Per Day: 1.5 hours per day Agreement: Yes Rehab Potential: Fair Time/GCodes Start Time: 11:30 Stop Time: 12:10 Total Time Billed (hr/min): 40 Billed Treatment Time 1 visit-FA 1 (15 min) EX 2 (25 min) LYLY PHILLIPS Apr 09, 2020 13:19
--- NOTE | 2020-04-09 14:05 | Physical Therapy Daily Note ---
PT Daily Note-Current Subjective Patient reports increase in fatigue. Agrees to PT. Pain Numeric Pain Scale: 0-No Pain Location: No Pain Reported Mental Status Patient Orientation: Normal For Age Transfers SCALE: Activities may be completed with or without assistive devices. 3-Mbzznchvxs-vrhkvmt completes the activity by him/herself with no assistance from a helper. 5-Set-up or Clean-up Assistance-helper sets up or cleans up; patient completes activity. [place] assists only prior to or following the activity. 4-Supervision or Touching Assistance-helper provides verbal cues and/or t ouching/steadying and/or contact guard assistance as patient completes activity. Assistance may be provided throughout the activity or intermittently. 3-Partial/Moderate Assistance-helper does LESS THAN HALF the effort. [place] lifts, holds or supports trunk or limbs, but provides less than half the effort. 2-Substantial/Maximal Assistance-helper does MORE THAN HALF the effort. [place] lifts or holds trunk or limbs and provides more than half the effort. 3-Qhciegdvx-sbiehz does ALL the effort. Patient does none of the effort to complete the activity. Or, the assistance of 2 or more helpers is required for the patient to complete the activity. If activity was not attempted, code reason: 7-Patient Refused. 9-Not Applicable-not attempted and the patient did not perform the activity before the current illness, exacerbation or injury. 10-Not Attempted due to Environmental Limitations-(lack of equipment, weather restraints, etc.). 88-Not Attempted due to Medical Conditions or Safety Concerns. Sit to Lying (QC): 3 Sit to Stand (QC): 3 Chair/Bgi-df-Cygsp Xfer(QC): 3 Weight Bearing Full Weight Bearing Full Weight Bearing Gait Training Distance: 5' x 2 Gait Assistive Device: FWW patient unable to ambulate this p.m. due to increase fatigue. Patient did have episode of "melting or dropping", with safe return to w/c, due to severely diminished lower body and core strength. Exercises Supine Ex: Bridging (with adductor contraction exercise with pillow ), Glut sets, Scooting (5 reps up in bed), Straight leg raise Supine Reps: 10 Assessment Patient requires time to complete all functional tasks and exercises this p.m. Patient returned to bed with 4 rails up and needs met. PT Short Term Goals Short Term Goals Time Frame: Apr 14, 2020 Sit to lyin Lying to sitting on side of be: 4 Sit to stand: 4 Walk 150 feet: 4 Wheel 150 feet: 6 PT Watch Train Assembler Goals Watch Train Assembler Goals PT Watch Train Assembler Goals Time Frame: Apr 28, 2020 Roll Left & Right (QC): 6 Sit to Lying (QC): 6 Lying-Sitting on Side/Bed(QC): 6 Sit to Stand (QC): 6 Chair/Dvx-dh-Vtuwh Xfer(QC): 6 Toilet Transfer (QC): 6 Car Transfer (QC): 5 Does the Patient Walk: Yes Walk 10 feet (QC): 6 Walk 50ft with 2 Turns (QC): 6 Walk 150 ft (QC): 6 Walking 10ft on Uneven Surface: 5 1 Step (curb) (QC): 5 4 Steps (QC): 4 12 Steps (QC): 10 Picking up an Object (QC): 3 Wheel 50 feet with 2 turns (QC: 6 Wheel 150 feet: 6 PT Plan Treatment/Plan Treatment Plan: Continue Plan of Care Treatment Plan: Bed Mobility, Education, Functional Activity Davina, Functional Strength, Group Therapy, Gait, Safety, Therapeutic Exercise, Transfers Treatment Duration: Apr 28, 2020 Frequency: At least 5 of 7 days/Wk (IRF) Estimated Hrs Per Day: 1.5 hours per day Patient and/or Family Agrees t: Yes Time/GCodes Time In: 1330 Time Out: 1400 Total Billed Treatment Time: 30 Total Billed Treatment 1 visit EX 15 min GT 15 min MONALISA DELUNA PT Apr 09, 2020 14:05
--- NOTE | 2020-04-09 14:06 | NUR ---
CM/SS ADMISSION Patient was admitted to ARU 04/07/20 from home for debility. He presented to [facility] ED 02/19 and was transferred to first available hospital with dialysis capacity which was [facility] He was discharged home then presented to [facility] with admission under OBS status 03/18-03/21. He again discharged home with [facility] but continued with weakness/deconditioning and dependence upon family for assistance, leading to admission here. Patient resides at home with his spouse Keira Carrero. She describes that patient was ambulating about the house prior to the late January onset of illness and intermittent hospitalizations. She surmises that since patient had Rx for fluid reduction and 20# weight loss he has not regained his strength/stamina. Keira describes that he was in his recliner most all the time, and that she is not physically able to assist him for transfers and ambulation. Their son Hector Carrero was coming in a.m. to get patient up from bed, mid-day for toileting and as needed, then at night to get him in bed. The goal is to maximize patient's improvement and for him to return home. PCP: Dr. Adan Wright MD, [place] [facility]: [facility] and a Mail in option INSURANCE: Medicare, [employer] [facility] Supplement DME: Has Lifevest (may be discontinued), FWW and 4WW, shower chair, hand held shower wand, wheelchair (from [employer]). Additional recommendations for assistive devices to be determined by therapy team. BARRIERS TO DISCHARGE PLANNING: The goal is for patient to return home; however, he has to be able to stand, pivot, ambulate short distances, and toilet. Spouse states she is no physical match for him and their son works and has been leaving work to come routinely and as needed. Per Keira, patient will not be in agreement with a community correction placement, but that if it was absolutely necessary she suspected their choices would be [facility] and [facility] She said patient would be adamant no placements at [facility]. Keira and patient understand the process and purpose of the weekly patient care conference and that his first review will be April 14.
--- NOTE | 2020-04-09 15:43 | Progress Note - Cardiology ---
Cardiology SOAP Progress Note Subjective: In bed. States he feels a little stronger. No c/o CP or SOB. Objective: I&O/Vital Signs 04/12/20 04/12/20 04/12/20 05:00 09:00 16:05 Temp 36.2 36.4 Pulse 58 58 Resp 18 16 B/P (MAP) 108/59 (75) 120/58 (78) Pulse Ox 98 96 O2 Delivery Room Air Room Air Room Air 04/12/20 00:00 Intake Total 200 ml Balance 200 ml Weight (Pounds): 186 Weight (Ounces): 8.0 Weight (Calculated Kilograms): 84.544800 Constitutional: AAO x 3, other (thin, frail) Respiratory: No accessory muscle use, No respiratory distress; chest expansion is symmetric, chest is bilaterally symmetric, lungs clear to auscultation Cardiovascular: regular rate-rhythm; No JVD; S1 and S2 Gastrointestional: soft, audible bowel sounds Extremities: other (bilat mod pedal edema) Neurologic/Psychiatric: grossly intact (moves all extremities) Skin: No rash on exposed areas, No ulcerations on exposed areas Results/Procedures: Labs Laboratory Tests 04/12/20 05:27: White Blood Count 7.4, Red Blood Count 3.11L, Hemoglobin 10.4L, Hematocrit 30L, Mean Corpuscular Volume 97, Mean Corpuscular Hemoglobin 33, Mean Corpuscular Hemoglobin Concent 34, Red Cell Distribution Width 13.9, Platelet Count 309, Mean Platelet Volume 9.2, Immature Granulocyte % (Auto) 0, Neutrophils (%) (Auto) 75, Lymphocytes (%) (Auto) 11L, Monocytes (%) (Auto) 10, Eosinophils (%) (Auto) 3, Basophils (%) (Auto) 1, Neutrophils # (Auto) 5.5, Lymphocytes # (Auto) 0.8L, Monocytes # (Auto) 0.7, Eosinophils # (Auto) 0.2, Basophils # (Auto) 0.1, Immature Granulocyte # (Auto) 0.0, Sodium Level 127L, Potassium Level 4.9, Chloride Level 94L, Carbon Dioxide Level 24, Anion Gap 9, Blood Urea Nitrogen 16, Creatinine 1.33H, Estimat Glomerular Filtration Rate 52, BUN/Creatinine Ratio 12, Glucose Level 94, Calcium Level 8.5, Corrected Calcium 9.3, Total Bilirubin 1.7H, Aspartate Amino Transf (AST/SGOT) 47H, Alanine Aminotransferase (ALT/SGPT) 22, Alkaline Phosphatase 215H, Total Protein 6.2L, Albumin 3.0L Microbiology 04/11/20 MRSA Screen - Final, Complete MRSA not isolated 04/10/20 Urine Culture - Final, Complete 3 or more isolates A/P: Assessment: Generalized weakness of undetermined etiology Hyponatremia/hyperkalemia of undetermined etiology; nausea and vomiting may be contributin Nausea and vomiting and wgt loss of undetermined etiology Ac renal failure on top of CKD 3 in Jan 2020 and Mar 14. Ac component likely related to vol depletion from vomiting Mild chronic hyponatremia, probably related to chronic diuretic therapy Chronic systolic and diastolic CHF. Echo of 02/19/20: LVEF 40-45%, dilated LA, mod to sev MR, AoV scl w/o stenosis, mod TR, PASP 35-40 mmHg. Echo of 03/18/20: LVEF 25-30%, grade 2 sorenson dysfuction, sever MR, mild , mid AI, mod TR, PASP 50-55 Hg - Life Vest in place Chronic, stable angina, likely due to distal SVG-RCA disease to which multiple, complex interventions have been undertaken without any durable relief of symptoms Coronary artery disease with a history of coronary artery bypass surgery consisting of left internal mammary artery graft to left anterior descending artery, saphenous vein graft to right coronary artery, saphenous vein graft to diagonal artery, saphenous vein graft to first obtuse marginal artery, saphenous vein graft to second obtuse marginal artery in 1999 CAD: H/o CABG and mutiple subsequent PCIs. H/o RCA-SVG perforation on 11/28/18 at time of intervention for SVG occlusion by Dr Miranda. Last card cath on 11/29/18 (Dr Smith at [facility]): 40-50% LMCA, occluded LAD, patent LCX with occluded OMs, occluded RCA, patent HUBBARD-LAD, patent SVG-om, Patent SVG-RCA with patent distal stent (known to be Alp Xience 2.25x8 placed on 08/28/17) Hyperlipidemia being treated with statin therapy Diabetes mellitus, type II. Gastroesophageal reflux. Tobaccoism consisting of smoking cigars. We have asked him to quit Carotid arterial disease, mild, per ultrasonography of June 2017 Minimal ALT elevation, stable on serial evals Plan: Repeat echo Monitor lab Hyponatremia slightly improved Replace electrolytes as indicated Continue Life Vest PT/OT as per Medical services SHANT KIRBY Apr 09, 2020 15:43
--- NOTE | 2020-04-09 16:10 | Progress Note - Cardiology ---
Cardiology SOAP Progress Note Subjective: Marginally stronger, he says No cp or palp or syncope Gen weakness No focal weakness Poor appetite Intermittent n/v Objective: I&O/Vital Signs 04/09/20 00:00 Intake Total 800 ml Output Total 650 ml Balance 150 ml Weight (Pounds): 186 Weight (Ounces): 8.0 Weight (Calculated Kilograms): 84.376779 Constitutional: AAO x 3, other (thin, frail) Respiratory: No accessory muscle use, No respiratory distress; chest expansion is symmetric, chest is bilaterally symmetric, lungs clear to auscultation Cardiovascular: regular rate-rhythm; No JVD; S1 and S2 Gastrointestional: soft, audible bowel sounds Extremities: other (bilat mod pedal edema) Neurologic/Psychiatric: grossly intact (moves all extremities) Skin: No rash on exposed areas, No ulcerations on exposed areas Results/Procedures: Labs Laboratory Tests 04/09/20 04:10: Sodium Level 126L, Potassium Level 5.0, Chloride Level 92L, Carbon Dioxide Level 23, Anion Gap 11, Blood Urea Nitrogen 20H, Creatinine 1.39H, Estimat Glomerular Filtration Rate 49, BUN/Creatinine Ratio 14, Glucose Level 100, Calcium Level 8.5, B-Type Natriuretic Peptide 1903.1H Laboratory Tests 04/08/20 06:11 04/09/20 04:10 A/P: Assessment: Generalized weakness of undetermined etiology Hyponatremia/hyperkalemia of undetermined etiology; nausea and vomiting may be contributing Nausea and vomiting and wgt loss of undetermined etiology Ac renal failure on top of CKD 3 in Jan 2020 and Mar 14. Ac component likely related to vol depletion from vomiting Mild chronic hyponatremia, probably related to chronic diuretic therapy Chronic systolic and diastolic CHF. Echo of 02/19/20: LVEF 40-45%, dilated LA, mod to sev MR, AoV scl w/o stenosis, mod TR, PASP 35-40 mmHg. Echo of 03/18/20: LVEF 25-30%. Last echo 04/08/20: LVEF 30-35%, apical and anteroseptal akinesis, mod MR, mod TR, RVSP 26 mmHg - Life Vest in place Coronary artery disease with a history of coronary artery bypass surgery consisting of left internal mammary artery graft to left anterior descending artery, saphenous vein graft to right coronary artery, saphenous vein graft to diagonal artery, saphenous vein graft to first obtuse marginal artery, saphenous vein graft to second obtuse marginal artery in 1999 CAD: H/o CABG and mutiple subsequent PCIs. H/o RCA-SVG perforation on 11/28/18 at time of intervention for SVG occlusion by Dr Miranda. Last card cath on 11/29/18 (Dr Smith at [facility]): 40-50% LMCA, occluded LAD, patent LCX with occluded OMs, occluded RCA, patent HUBBARD-LAD, patent SVG-om, Patent SVG-RCA with patent distal stent (known to be Alp Xience 2.25x8 placed on 08/28/17) Hyperlipidemia being treated with statin therapy Diabetes mellitus, type II. Gastroesophageal reflux. Tobaccoism consisting of smoking cigars. We have asked him to quit Carotid arterial disease, mild, per ultrasonography of June 2017 Minimal ALT elevation, stable on serial evals Plan: We discussed his CV issues and finding on echo of 04/08/20 Replace electrolytes as indicated Continue Life Vest PT/OT as per Medical services RALPH AMAYA MD FACP FAC CCDS Apr 09, 2020 16:10
[2020-04-09 16:14] VITALS: BP 115/63
[2020-04-09] MEDS: MELATONIN 3 MG TABLET PO PRN (22:11)
[2020-04-09] MEDS: ASPIRIN E.C. 81 MG (ECOTRIN) TAB PO SCH (22:11)
[2020-04-10] MEDS: ISOSORBIDE MONONITRATE 60 MG (IMDUR) TAB PO SCH (03:23)
[2020-04-10] MEDS: ACETAMINOPHEN 500 MG TAB (TYLENOL) PO PRN (03:23)
[2020-04-10] MEDS: MULTIVIT W/MINERALS TAB (THERAGRAN M) PO SCH (06:11)
[2020-04-10] MEDS: METOCLOPRAMIDE 5 MG (REGLAN) TAB PO PRN (06:11)
[2020-04-10 06:15] VITALS: BP 136/74
--- NOTE | 2020-04-10 07:05 | PM&R Progress Note ---
Subjective HPI/CC On Admission Date Seen by Provider: Apr 10, 2020 Time Seen by Provider: 12:00 Subjective/Events-last exam 04/10/20: Emesis today as he does a lot at home Sodium level is 124 Salt tablets started along with fluid restriction No BM for several days 04/09/20: Very debilitated Tires out easily Lifevest maintained No BM yesterday Wants to know his blood type and since he appears to be very pale and hgb is low will type and screen to prepare for transfusion if needed BNP is very elevated Stopping IVF Had N/V and given Reglan Patient has severe weakness Frequent breaks required Very debilitated Urine is concentrated so will start gentle IVF Dyspnea is severe Prognosis guarded Very debilitated Checked meds and labs Conferred with RN Reviewed therapy notes Review of Systems General: Fatigue Pulmonary: Dyspnea Gastrointestinal: Constipation Neurological: Weakness Objective Exam Vital Signs Vital Signs Date Time Temp Pulse Resp B/P (MAP) Pulse Ox O2 Delivery O2 Flow Rate FiO2 04/11/20 05:39 35.9 58 20 131/64 (86) 95 Room Air Capillary Refill : Less Than 3 Seconds General Appearance: No Apparent Distress, WD/WN, Chronically ill HEENT: PERRL/EOMI, Normal ENT Inspection, Pharynx Normal Neck: Full Range of Motion, Normal Inspection, Non Tender, Supple, Carotid Bruit Respiratory: Chest Non Tender, Lungs Clear, No Accessory Muscle Use, No Respiratory Distress, Decreased Breath Sounds Cardiovascular: Regular Rate, Rhythm, No Edema, No Gallop, No JVD, No Murmur, Normal Peripheral Pulses Gastrointestinal: Normal Bowel Sounds, No Organomegaly, No Pulsatile Mass, Non Tender, Soft Back: Normal Inspection, No CVA Tenderness, No Vertebral Tenderness Extremity: Normal Capillary Refill, Normal Inspection, Normal Range of Motion, Non Tender, No Calf Tenderness, No Pedal Edema Neurologic/Psychiatric: Alert, Oriented x3, No Motor/Sensory Deficits, service administrator II- XII Norm as Tested, Abnormal Gait, Depressed Affect, Motor Weakness (generalized all extremities) Skin: Normal Color, Warm/Dry Lymphatic: No Adenopathy Results/Procedures Lab Laboratory Tests 04/11/20 04:57 Patient resulted labs reviewed. FIM Transfers Therapy Code Descriptions/Definitions Functional [place] Measure: 0=Not Assessed/NA 4=Minimal Assistance 1=Total Assistance 5=Supervision or Setup 2=Maximal Assistance 6=Modified [place] 3=Moderate Assistance 7=Complete IndependenceSCALE: Activities may be completed with or without assistive devices. 5-Swaonyrxhh-sdjamma completes the activity by him/herself with no assistance from a helper. 5-Set-up or Clean-up Assistance-helper sets up or cleans up; patient completes activity. [place] assists only prior to or following the activity. 4-Supervision or Touching Assistance-helper provides verbal cues and/or touching/steadying and/or contact guard assistance as patient completes activit y. Assistance may be provided throughout the activity or intermittently. 3-Partial/Moderate Assistance-helper does LESS THAN HALF the effort. [place] lifts, holds or supports trunk or limbs, but provides less than half the effort. 2-Substantial/Maximal Assistance-helper does MORE THAN HALF the effort. [place] lifts or holds trunk or limbs and provides more than half the effort. 7-Nluaeqjfh-xslaho does ALL the effort. Patient does none of the effort to complete the activity. Or, the assistance of 2 or more helpers is required for the patient to complete the activity. If activity was not attempted, code reason: 7-Patient Refused. 9-Not Applicable-not attempted and the patient did not perform the activity before the current illness, exacerbation or injury. 10-Not Attempted due to Environmental Limitations-(lack of equipment, weather restraints, etc.). 88-Not Attempted due to Medical Conditions or Safety Concerns. Roll Left to Right (QC): 4 Sit to Lying (QC): 3 Sit to Stand (QC): 3 Chair/Zyx-qg-Kjcrg Xfer(QC): 3 Car Transfer (QC): 88 (Pt unable to safetly attempt this visit. Will attempt tomorrow. ) Gait Training Does the Patient Walk?: Yes Distance: 5' x 2 Walk 10 feet (QC): 4 Walk 50 ft with 2 Turns(QC): 4 Walk 150 ft (QC): 88 Walking 10ft/uneven surface-QC: 88 Gait Persons Needed: 1 (plus w/c assist and IV assist) Gait Assistive Device: FWW Wheelchair Training Does the Pt Use a Wheelchair?: Yes Distance: 50 ft Wheel 50 ft with 2 turns (QC): 4 Wheel 150 ft (QC): 7 (fatigued) Type of Wheelchair: Manual Stair Training 1 Step (curb) (QC): 88 4 Steps (QC): 88 12 Steps (QC): 88 Balance Picking up an Object (QC): 88 ADL-Treatment Eating (QC): 6 Oral Hygiene (QC): 7 Bathing Location: L Arm, R Arm, L Upper Leg, R Upper Leg, L Lower Leg (including foot), R Lower Leg (including foot), Chest, Abdomen Shower/Bathe Self (QC): 7 Upper Body Dressing (QC): 7 Lower Body Dressing (QC): 7 On/Off Footwear (QC): 3 (Nrsg requested pt to have EMMANUEL hose. Assist to don EMMANUEL hose. Pt able to don/doff slippers and doff socks by self.) Toileting Hygiene (QC): 3 Toilet Transfer (QC): 3 Assessment/Plan Assessment and Plan Assess & Plan/Chief Complaint Assessment: Debility with myopathy CHF on lifevest HTN CRI HTN HLP Smoker ETOHism Hypoxia Hyponatremia COPD Plan: Monitor creatinine Cardiology consult Monitor pain IRF protocol 04/08/20: Very debilitated Work on stamina Maintain O2 IVF gentle for dehydration Monitor sodium level 04/09/20: Monitor sodium level Monitor creatinine Type and screen 04/10/20: Monitor emesis Monitor sodium level BM regimen (1) Debility (2) Acute on chronic kidney failure (3) Alcohol dependence, daily use Status: Acute (4) HTN (hypertension) Status: Acute (5) CAD (coronary artery disease) (6) Hypokalemia (7) Status post fall Status: Acute (8) STEMI (ST elevation myocardial infarction) Status: Acute (9) Hypomagnesemia (10) Multifocal PVCs Status: Acute (11) PAD (peripheral artery disease) (12) Weakness Status: Acute (13) Renal insufficiency Status: Acute (14) CHF (congestive heart failure) Status: Acute CODI HERCULES DO Apr 10, 2020 07:05
[2020-04-10 07:29] LABS: POTASSIUM 4.9 MMOL/L (3.6-5.0)
[2020-04-10 07:30] LABS: CALCIUM 8.7 MG/DL (8.5-10.1)
[2020-04-10 07:35] LABS: CREATININE SERUM 1.38 MG/DL (0.60-1.30)
[2020-04-10] MEDS: OMEGA 3 (FISH OIL) 1000 MG CAP PO SCH ×2 (08:00→18:49)
--- NOTE | 2020-04-10 08:05 | Physical Therapy Daily Note ---
PT Daily Note-Current Subjective Agreeable to PT. Reports that for the most part, his home is accessible with his wheelchair. Transfers SCALE: Activities may be completed with or without assistive devices. 7-Qkxljfbasy-hlcjtql completes the activity by him/herself with no assistance from a helper. 5-Set-up or Clean-up Assistance-helper sets up or cleans up; patient completes activity. [place] assists only prior to or following the activity. 4-Supervision or Touching Assistance-helper provides verbal cues and/or touching/steadying and/or contact guard assistance as patient completes activity. Assistance may be provided throughout the activity or intermittently. 3-Partial/Moderate Assistance-helper does LESS THAN HALF the effort. [place] lifts, holds or supports trunk or limbs, but provides less than half the effort. 2-Substantial/Maximal Assistance-helper does MORE THAN HALF the effort. [place] lifts or holds trunk or limbs and provides more than half the effort. 9-Xrlnfvrgt-zwpjfl does ALL the effort. Patient does none of the effort to complete the activity. Or, the assistance of 2 or more helpers is required for the patient to complete the activity. If activity was not attempted, code reason: 7-Patient Refused. 9-Not Applicable-not attempted and the patient did not perform the activity before the current illness, exacerbation or injury. 10-Not Attempted due to Environmental Limitations-(lack of equipment, weather restraints, etc.). 88-Not Attempted due to Medical Conditions or Safety Concerns. Weight Bearing Full Weight Bearing Full Weight Bearing Treatments Supine to sit EOB with mod assist and skilled cues for sequencing. Sit to stand x multiple attempts with cues to scoot forward, bring feet back and lean forward; min to mod assist with sit to stand and good carryover with sequencing after cues. Pt walked x 15 ft x 4 reps with min to CGA with wc very close behind. Once pt needs to sit, he has difficulty remaining standing and sits quickly. Pt propelled wc x 50 ft with 1 turn with SBA. Pt up in recliner with legs elevated post treatment with needs met. Assessment Current Status: Fair Progress Forward flexed at hips and lacks full knee extension in standing. Short steps with poor clearance. Slow gait and melts easily. PT Short Term Goals Short Term Goals Time Frame: Apr 14, 2020 Sit to lyin Lying to sitting on side of be: 4 Sit to stand: 4 Walk 150 feet: 4 Wheel 150 feet: 6 PT Half-Way Goals Half-Way Goals PT Half-Way Goals Time Frame: Apr 28, 2020 Roll Left & Right (QC): 6 Sit to Lying (QC): 6 Lying-Sitting on Side/Bed(QC): 6 Sit to Stand (QC): 6 Chair/Vyq-wj-Lqsck Xfer(QC): 6 Toilet Transfer (QC): 6 Car Transfer (QC): 5 Does the Patient Walk: Yes Walk 10 feet (QC): 6 Walk 50ft with 2 Turns (QC): 6 Walk 150 ft (QC): 6 Walking 10ft on Uneven Surface: 5 1 Step (curb) (QC): 5 4 Steps (QC): 4 12 Steps (QC): 10 Picking up an Object (QC): 3 Wheel 50 feet with 2 turns (QC: 6 Wheel 150 feet: 6 PT Plan Problem List Problem List: Activity Tolerance, Functional Strength, Safety, Balance, Gait, Transfer, Bed Mobility Treatment/Plan Treatment Plan: Continue Plan of Care Treatment Plan: Bed Mobility, Education, Functional Activity Davina, Functional Strength, Group Therapy, Gait, Safety, Therapeutic Exercise, Transfers Treatment Duration: Apr 28, 2020 Frequency: At least 5 of 7 days/Wk (IRF) Estimated Hrs Per Day: 1.5 hours per day Patient and/or Family Agrees t: Yes Safety Risks/Education Patient Education: Transfer Techniques Teaching Recipient: Patient Teaching Methods: Demonstration, Discussion Response to Teaching: Return Demonstration, Reinforcement Needed Discharge Recommendations Therapy Discharge Recommendati: Post Acute PT Time/GCodes Time In: 740 Time Out: 805 Total Billed Treatment Time: 25 Total Billed Treatment visit FA 25 LYLY BOYER PT Apr 10, 2020 08:05
[2020-04-10 08:30] VITALS: BP 111/57
[2020-04-10] MEDS: FOLIC ACID 1 MG TAB PO SCH (09:38)
[2020-04-10] MEDS: FAMOTIDINE 20 MG (PEPCID) TABLET PO SCH ×2 (09:38→21:10)
[2020-04-10] MEDS: MAGNESIUM OXIDE (MAG-OX)400 MG TAB PO SCH (09:38)
[2020-04-10] MEDS: CLOPIDOGREL 75 MG (PLAVIX) TABLET PO SCH (09:38)
[2020-04-10] MEDS: THIAMINE 100 MG (VITAMIN B-1) TAB PO SCH (09:38)
[2020-04-10] MEDS: RANOLAZINE ER 500 MG TAB (RANEXA) PO SCH ×2 (09:39→21:10)
[2020-04-10] MEDS: SENNA W/DOCUSATE (SENOKOT S) TABLET PO SCH ×2 (09:39→21:13)
[2020-04-10] MEDS: polyethylene glycoL POWDER 17 GM (MIRALAX) PACK PO SCH ×2 (09:39→21:12)
[2020-04-10] MEDS: SODIUM CHLORIDE 1 GM TABLET PO SCH ×2 (09:39→21:10)
[2020-04-10] MEDS: DOCUSATE SODIUM 100 MG (COLACE) CAP PO SCH ×2 (09:39→21:12)
[2020-04-10] MEDS: meTOprolol TARTRATE 50 MG (LOPRESSOR) TAB PO SCH ×2 (09:39→21:10)
--- NOTE | 2020-04-10 11:20 | Progress Note ---
Subjective Date Seen by a Provider: Apr 10, 2020 Time Seen by a Provider: 11:10 Subjective/Events-last exam Patient seen with Dr. Clemente. Patient reports doing ok but did vomit this morning. He reports that he has been eating with no issues. Objective Exam Vital Signs Date Time Temp Pulse Resp B/P (MAP) Pulse Ox O2 Delivery O2 Flow Rate FiO2 04/10/20 06:15 36.2 69 20 136/74 (94) 95 Room Air 04/09/20 20:30 Room Air 04/09/20 16:14 36.2 52 16 115/63 (80) 97 Room Air I & O 04/10/20 07:00 Intake Total 1000 ml Balance 1000 ml Capillary Refill : Less Than 3 Seconds General Appearance: No Apparent Distress, WD/WN Neck: Full Range of Motion, Supple Respiratory: Normal Breath Sounds, No Accessory Muscle Use, No Respiratory Distress Cardiovascular: Regular Rate, Rhythm, No Edema Gastrointestinal: normal bowel sounds, non tender, soft Extremity: Normal Inspection, Normal Range of Motion Neurologic/Psychiatric: Alert, Oriented x3 Skin: Normal Color, Warm/Dry Results Lab Laboratory Tests 04/10/20 06:55: Sodium Level 124*L, Potassium Level 4.9, Chloride Level 90L, Carbon Dioxide Level 24, Anion Gap 10, Blood Urea Nitrogen 18, Creatinine 1.38H, Estimat Glomerular Filtration Rate 50, BUN/Creatinine Ratio 13, Glucose Level 100, Calcium Level 8.7 Assessment/Plan Assessment/Plan Assess & Plan/Chief Complaint GERD, dysphagia. intermediate risk for procedure per cardiology. Will hold aspirin and plavix continue diet as tolerated. will plan for EGD with dilatation on sunday(04/12) Clinical Quality Measures DVT/VTE Risk/Contraindication: Risk Factor Score Per Nursin RFS Level Per Nursing on Admit: 4+=Very High JUAN CARLOS NAVARRETE CARPET TILE LAYER Apr 10, 2020 11:19
--- NOTE | 2020-04-10 11:55 | Progress Note - Cardiology ---
Cardiology SOAP Progress Note Subjective: Still suffering from gen weakness and malaise and poor appetite and intermittent n/v No cp or palp or syncope or swelling Objective: I&O/Vital Signs 04/10/20 04/10/20 06:15 09:00 Temp 36.2 Pulse 69 Resp 20 B/P (MAP) 136/74 (94) Pulse Ox 95 95 O2 Delivery Room Air Room Air 04/10/20 00:00 Intake Total 700 ml Balance 700 ml Weight (Pounds): 186 Weight (Ounces): 8.0 Weight (Calculated Kilograms): 84.114558 Constitutional: AAO x 3, other (thin, frail) Respiratory: No accessory muscle use, No respiratory distress; chest expansion is symmetric, chest is bilaterally symmetric, lungs clear to auscultation Cardiovascular: regular rate-rhythm; No JVD; S1 and S2 Gastrointestional: soft, audible bowel sounds Extremities: other (bilat mod pedal edema) Neurologic/Psychiatric: grossly intact (moves all extremities) Skin: No rash on exposed areas, No ulcerations on exposed areas Results/Procedures: Labs Laboratory Tests 04/10/20 06:55: Sodium Level 124*L, Potassium Level 4.9, Chloride Level 90L, Carbon Dioxide Level 24, Anion Gap 10, Blood Urea Nitrogen 18, Creatinine 1.38H, Estimat Glomerular Filtration Rate 50, BUN/Creatinine Ratio 13, Glucose Level 100, Delvis cium Level 8.7 Laboratory Tests 04/09/20 04:10 04/10/20 06:55 A/P: Assessment: Generalized weakness of undetermined etiology Hyponatremia/hyperkalemia of undetermined etiology; nausea and vomiting may be contributing Nausea and vomiting and wgt loss of undetermined etiology Ac renal failure on top of CKD 3 in Jan 2020 and Mar 14. Ac component likely related to vol depletion from vomiting Mild chronic hyponatremia, probably related to chronic diuretic therapy Chronic systolic and diastolic CHF. Echo of 02/19/20: LVEF 40-45%, dilated LA, mod to sev MR, AoV scl w/o stenosis, mod TR, PASP 35-40 mmHg. Echo of 03/18/20: LVEF 25-30%. Last echo 04/08/20: LVEF 30-35%, apical and anteroseptal akinesis, mod MR, mod TR, RVSP 26 mmHg - Life Vest in place Coronary artery disease with a history of coronary artery bypass surgery consisting of left internal mammary artery graft to left anterior descending artery, saphenous vein graft to right coronary artery, saphenous vein graft to diagonal artery, saphenous vein graft to first obtuse marginal artery, saphenous vein graft to second obtuse marginal artery in 1999 CAD: H/o CABG and mutiple subsequent PCIs. H/o RCA-SVG perforation on 11/28/18 at time of intervention for SVG occlusion by Dr Miranda. Last card cath on 11/29/18 (Dr Smith at [facility]): 40-50% LMCA, occluded LAD, patent LCX with occluded OMs, occluded RCA, patent HUBBARD-LAD, patent SVG-om, Patent SVG-RCA with patent distal stent (known to be Alp Xience 2.25x8 placed on 08/28/17) Hyperlipidemia being treated with statin therapy Diabetes mellitus, type II. Gastroesophageal reflux. Tobaccoism consisting of smoking cigars. We have asked him to quit Carotid arterial disease, mild, per ultrasonography of June 2017 Minimal ALT elevation, stable on serial evals Plan: Monitor labs Not suitable for KIZZY-inhib / ARB due to propensity to hyperkalemia Continue Life Vest PT/OT as per Medical services RALPH AMAYA MD FACP FAC CCDS Apr 10, 2020 11:55
[2020-04-10 14:08] LABS: BILIRUBIN,URINE 2+ (NEGATIVE); CLARITY,URINE SL CLOUDY; COLOR,URINE BROWN; GLUCOSE, URINE (UA) NEGATIVE (NEGATIVE); KETONES,URINE TRACE (NEGATIVE); LEUKOCYTE ESTERASE ,URINE NEGATIVE (NEGATIVE); NITRITE,URINE POSITIVE (NEGATIVE); PH,URINE 5.5 (5-9); PROTEIN,URINE 1+ (NEGATIVE)
[2020-04-10 14:20] LABS: WBC,URINE 0-2 /HPF
[2020-04-10 14:21] LABS: BACTERIA,URINE MODERATE /HPF
[2020-04-10 17:39] VITALS: BP 116/57
--- NOTE | 2020-04-10 19:24 | NUR ---
bedside report received from SHIRLEY ODONNELL, assume care of pt
[2020-04-10 21:05] VITALS: BP 139/66
[2020-04-10] MEDS: MELATONIN 3 MG TABLET PO PRN (21:10)
--- NOTE | 2020-04-10 21:10 | NUR ---
pt refused Colace, Senokot and miralax, ate chocolate pudding for snack tonight advised will give Reglan 5mg before breakfast tomorrow, pt agreed
[2020-04-11] MEDS: ISOSORBIDE MONONITRATE 60 MG (IMDUR) TAB PO SCH (02:49)
[2020-04-11] MEDS: ACETAMINOPHEN 500 MG TAB (TYLENOL) PO PRN (02:50)
[2020-04-11 05:39] VITALS: BP 131/64
[2020-04-11 05:47] LABS: CALCIUM 8.6 MG/DL (8.5-10.1); CREATININE SERUM 1.42 MG/DL (0.60-1.30); POTASSIUM 4.8 MMOL/L (3.6-5.0)
[2020-04-11] MEDS: MULTIVIT W/MINERALS TAB (THERAGRAN M) PO SCH (06:18)
[2020-04-11] MEDS: METOCLOPRAMIDE 5 MG (REGLAN) TAB PO PRN (06:18)
--- NOTE | 2020-04-11 06:18 | NUR ---
Reglan 5mg given prior to breakfast
--- NOTE | 2020-04-11 07:20 | NUR ---
had emesis of what pt ate for breakfast
--- NOTE | 2020-04-11 09:04 | PM&R Progress Note ---
Subjective HPI/CC On Admission Date Seen by Provider: Apr 11, 2020 Time Seen by Provider: 12:30 Subjective/Events-last exam 04/11/20: EGD in morning Nausea and vomiting continues daily Reglan given with good results BM x 2 today O2 maintained 04/10/20: Emesis today as he does a lot at home Sodium level is 124 Salt tablets started along with fluid restriction No BM for several days 04/09/20: Very debilitated Tires out easily Lifevest maintained No BM yesterday Wants to know his blood type and since he appears to be very pale and hgb is low will type and screen to prepare for transfusion if needed BNP is very elevated Stopping IVF Had N/V and given Reglan Patient has severe weakness Frequent breaks required Very debilitated Urine is concentrated so will start gentle IVF Dyspnea is severe Prognosis guarded Very debilitated Checked meds and labs Conferred with RN Reviewed therapy notes Review of Systems General: Fatigue, Malaise Pulmonary: Dyspnea Gastrointestinal: Nausea, Vomiting Objective Exam Vital Signs Vital Signs Date Time Temp Pulse Resp B/P (MAP) Pulse Ox O2 Delivery O2 Flow Rate FiO2 04/11/20 09:00 Room Air 04/11/20 05:39 35.9 58 20 131/64 (86) 95 Capillary Refill : Less Than 3 Seconds General Appearance: No Apparent Distress, WD/WN, Chronically ill HEENT: PERRL/EOMI, Normal ENT Inspection, Pharynx Normal Neck: Full Range of Motion, Normal Inspection, Non Tender, Supple, Carotid Bruit Respiratory: Chest Non Tender, Lungs Clear, No Accessory Muscle Use, No Respiratory Distress, Decreased Breath Sounds Cardiovascular: Regular Rate, Rhythm, No Edema, No Gallop, No JVD, No Murmur, Normal Peripheral Pulses Gastrointestinal: Normal Bowel Sounds, No Organomegaly, No Pulsatile Mass, Non Tender, Soft Back: Normal Inspection, No CVA Tenderness, No Vertebral Tenderness Extremity: Normal Capillary Refill, Normal Inspection, Normal Range of Motion, Non Tender, No Calf Tenderness, No Pedal Edema Neurologic/Psychiatric: Alert, Oriented x3, No Motor/Sensory Deficits, labor law professor II- XII Norm as Tested, Abnormal Gait, Depressed Affect, Motor Weakness (generalized all extremities) Skin: Normal Color, Warm/Dry Lymphatic: No Adenopathy Results/Procedures Lab Laboratory Tests 04/11/20 04:57 Patient resulted labs reviewed. FIM Transfers Therapy Code Descriptions/Definitions Functional Bryce Measure: 0=Not Assessed/NA 4=Minimal Assistance 1=Total Assistance 5=Supervision or Setup 2=Maximal Assistance 6=Modified Bryce 3=Moderate Assistance 7=Complete IndependenceSCALE: Activities may be completed with or without assistive devices. 5-Chetnlvmaf-xhoxlic completes the activity by him/herself with no assistance from a helper. 5-Set-up or Clean-up Assistance-helper sets up or cleans up; patient completes activity. [place] assists only prior to or following the activity. 4-Supervision or Touching Assistance-helper provides verbal cues and/or touching/steadying and/or contact guard assistance as patient completes activity. Assistance may be provided throughout the activity or intermittently. 3-Partial/Moderate Assistance-helper does LESS THAN HALF the effort. [place] lifts, holds or supports trunk or limbs, but provides less than half the effort. 2-Substantial/Maximal Assistance-helper does MORE THAN HALF the effort. [place] lifts or holds trunk or limbs and provides more than half the effort. 2-Tuhuftozv-jyobcd does ALL the effort. Patient does none of the effort to complete the activity. Or, the assistance of 2 or more helpers is required for the patient to complete the activity. If activity was not attempted, code reason: 7-Patient Refused. 9-Not Applicable-not attempted and the patient did not perform the activity before the current illness, exacerbation or injury. 10-Not Attempted due to Environmental Limitations-(lack of equipment, weather restraints, etc.). 88-Not Attempted due to Medical Conditions or Safety Concerns. Roll Left to Right (QC): 4 Sit to Lying (QC): 3 Sit to Stand (QC): 3 Chair/Sal-bu-Idwmp Xfer(QC): 3 Car Transfer (QC): 88 (Pt unable to safetly attempt this visit. Will attempt tomorrow. ) Gait Training Does the Patient Walk?: Yes Distance: 5' x 2 Walk 10 feet (QC): 4 Walk 50 ft with 2 Turns(QC): 4 Walk 150 ft (QC): 88 Walking 10ft/uneven surface-QC: 88 Gait Persons Needed: 1 (plus w/c assist and IV assist) Gait Assistive Device: FWW Wheelchair Training Does the Pt Use a Wheelchair?: Yes Distance: 50 ft Wheel 50 ft with 2 turns (QC): 4 Wheel 150 ft (QC): 7 (fatigued) Type of Wheelchair: Manual Stair Training 1 Step (curb) (QC): 88 4 Steps (QC): 88 12 Steps (QC): 88 Balance Picking up an Object (QC): 88 ADL-Treatment Eating (QC): 6 Oral Hygiene (QC): 7 Bathing Location: L Arm, R Arm, L Upper Leg, R Upper Leg, L Lower Leg (includi ng foot), R Lower Leg (including foot), Chest, Abdomen Shower/Bathe Self (QC): 7 Upper Body Dressing (QC): 7 Lower Body Dressing (QC): 7 On/Off Footwear (QC): 3 (Nrsg requested pt to have EMMANUEL hose. Assist to don EMMANUEL hose. Pt able to don/doff slippers and doff socks by self.) Toileting Hygiene (QC): 3 Toilet Transfer (QC): 3 Assessment/Plan Assessment and Plan Assess & Plan/Chief Complaint Assessment: Debility with myopathy CHF on lifevest HTN CRI HTN HLP Smoker ETOHism Hypoxia Hyponatremia COPD Plan: Monitor creatinine Cardiology consult Monitor pain IRF protocol 04/08/20: Very debilitated Work on stamina Maintain O2 IVF gentle for dehydration Monitor sodium level 04/09/20: Monitor sodium level Monitor creatinine Type and screen 04/10/20: Monitor emesis Monitor sodium level BM regimen 04/11/20: BM regimen successful O2 Monitor sodium level Very fragile and fatigued (1) Debility (2) Acute on chronic kidney failure (3) Alcohol dependence, daily use Status: Acute (4) HTN (hypertension) Status: Acute (5) CAD (coronary artery disease) (6) Hypokalemia (7) Status post fall Status: Acute (8) STEMI (ST elevation myocardial infarction) Status: Acute (9) Hypomagnesemia (10) Multifocal PVCs Status: Acute (11) PAD (peripheral artery disease) (12) Weakness Status: Acute (13) Renal insufficiency Status: Acute (14) CHF (congestive heart failure) Status: Acute CODI HERCULES DO Apr 11, 2020 09:04
[2020-04-11] MEDS: MAGNESIUM OXIDE (MAG-OX)400 MG TAB PO SCH (10:20)
[2020-04-11] MEDS: FOLIC ACID 1 MG TAB PO SCH (10:20)
[2020-04-11] MEDS: DOCUSATE SODIUM 100 MG (COLACE) CAP PO SCH ×2 (10:20→21:24)
[2020-04-11] MEDS: OMEGA 3 (FISH OIL) 1000 MG CAP PO SCH ×2 (10:20→17:11)
[2020-04-11] MEDS: FAMOTIDINE 20 MG (PEPCID) TABLET PO SCH ×2 (10:21→21:19)
[2020-04-11] MEDS: polyethylene glycoL POWDER 17 GM (MIRALAX) PACK PO SCH ×2 (10:21→21:25)
[2020-04-11] MEDS: RANOLAZINE ER 500 MG TAB (RANEXA) PO SCH ×2 (10:22→21:19)
[2020-04-11] MEDS: THIAMINE 100 MG (VITAMIN B-1) TAB PO SCH (10:22)
[2020-04-11] MEDS: SENNA W/DOCUSATE (SENOKOT S) TABLET PO SCH ×2 (10:22→21:25)
[2020-04-11] MEDS: SODIUM CHLORIDE 1 GM TABLET PO SCH ×2 (10:31→21:19)
[2020-04-11] MEDS: meTOprolol TARTRATE 50 MG (LOPRESSOR) TAB PO SCH ×2 (10:31→21:19)
--- NOTE | 2020-04-11 10:52 | Progress Note ---
Subjective Date Seen by a Provider: Apr 11, 2020 Time Seen by a Provider: 09:45 Subjective/Events-last exam Patient seen with Dr. Clemente. Patient reports doing well. Did have BM this AM and denied any blood in stool. Denies any abdominal pain. Did report throwing up after eating breakfast this morning. Denies any hematemesis. Objective Exam Vital Signs Date Time Temp Pulse Resp B/P (MAP) Pulse Ox O2 Delivery O2 Flow Rate FiO2 04/11/20 09:00 Room Air 04/11/20 05:39 35.9 58 20 131/64 (86) 95 Room Air 04/10/20 21:15 96 Room Air 04/10/20 21:05 55 18 139/66 (90) 96 Room Air 04/10/20 17:39 36.1 53 16 116/57 (76) 99 Room Air I & O 04/11/20 07:00 Intake Total 1040 ml Output Total 425 ml Balance 615 ml Capillary Refill : Less Than 3 Seconds General Appearance: No Apparent Distress, WD/WN Neck: Normal Inspection, Supple Respiratory: Normal Breath Sounds, No Accessory Muscle Use, No Respiratory Distress Cardiovascular: Regular Rate, Rhythm, No Edema Gastrointestinal: normal bowel sounds, non tender, soft Extremity: Normal Inspection, Normal Range of Motion Neurologic/Psychiatric: Alert, Oriented x3 Skin: Normal Color, Warm/Dry Results Lab Laboratory Tests 04/10/20 13:55: Urine Color BROWNH, Urine Clarity SL CLOUDY, Urine pH 5.5, Urine Specific [place] >=1.030, Urine Protein 1+H, Urine Glucose (UA) NEGATIVE, Urine Ketones TRACEH, Urine Nitrite POSITIVEH, Urine Bilirubin 2+H, Urine Urobilinogen 1.0, Urine Leukocyte Esterase NEGATIVE, Urine RBC (Auto) NEGATIVE, Urine RBC NONE, Urine WBC 0-2, Urine Crystals NONE, Urine Bacteria MODERATEH, Urine Casts NONE, Urine Mucus MODERATEH, Urine Culture Indicated YES 04/11/20 04:57: Sodium Level 127L, Potassium Level 4.8, Chloride Level 93L, Carbon Dioxide Level 23, Anion Gap 11, Blood Urea Nitrogen 18, Creatinine 1.42H, Estimat Glomerular Filtration Rate 48, BUN/Creatinine Ratio 13, Glucose Level 96, Calcium Level 8.6 Assessment/Plan Assessment/Plan Assess & Plan/Chief Complaint A 79 year old male with GERD, dysphagia. intermediate risk for procedure per cardiology. Will hold aspirin and plavix continue diet as tolerated. NPO aftermidnight tonight will plan for EGD with dilatation Tomorrow Clinical Quality Measures DVT/VTE Risk/Contraindication: Risk Factor Score Per Nursin RFS Level Per Nursing on Admit: 4+=Very High JUAN CARLOS NAVARRETE REGISTERED NURSE MATERNAL CHILD Apr 11, 2020 10:52
--- NOTE | 2020-04-11 12:24 | Progress Note - Cardiology ---
Cardiology SOAP Progress Note Subjective: Gen weakness and malaise Continues with intermittent n&v No cp or palp or syncope No focal weakness Objective: I&O/Vital Signs 04/11/20 04/11/20 05:39 09:00 Temp 35.9 Pulse 58 Resp 20 B/P (MAP) 131/64 (86) Pulse Ox 95 O2 Delivery Room Air Room Air 04/11/20 00:00 Intake Total 840 ml Output Total 175 ml Balance 665 ml Weight (Pounds): 186 Weight (Ounces): 8.0 Weight (Calculated Kilograms): 84.976479 Constitutional: AAO x 3, other (thin, frail) Respiratory: No accessory muscle use, No respiratory distress; chest expansion is symmetric, chest is bilaterally symmetric, lungs clear to auscultation Cardiovascular: regular rate-rhythm; No JVD; S1 and S2 Gastrointestional: soft, audible bowel sounds Extremities: other (bilat mod pedal edema) Neurologic/Psychiatric: grossly intact (moves all extremities) Skin: No rash on exposed areas, No ulcerations on exposed areas Results/Procedures: Labs Laboratory Tests 04/10/20 13:55: Urine Color BROWNH, Urine Clarity SL CLOUDY, Urine pH 5.5, Urine Specific [place] >=1.030, Urine Protein 1+H, Urine Glucose (UA) NEGATIVE, Urine Ketones TRACEH, Urine Nitrite POSITIVEH, Urine Bilirubin 2+H, Urine Urobilinogen 1.0, Urine Leukocyte Esterase NEGATIVE, Urine RBC (Auto) NEGATIVE, Urine RBC NONE, Urine WBC 0-2, Urine Crystals NONE, Urine Bacteria MODERATEH, Urine Casts NONE, Urine Mucus MODERATEH, Urine Culture Indicated YES 04/11/20 04:57: Sodium Level 127L, Potassium Level 4.8, Chloride Level 93L, Carbon Dioxide Level 23, Anion Gap 11, Blood Urea Nitrogen 18, Creatinine 1.42H, Estimat Glomerular Filtration Rate 48, BUN/Creatinine Ratio 13, Glucose Level 96, Calcium Level 8.6 Laboratory Tests 04/10/20 06:55 04/11/20 04:57 A/P: Assessment: Generalized weakness of undetermined etiology Hyponatremia/hyperkalemia of undetermined etiology; nausea and vomiting may be contributing Nausea and vomiting and wgt loss of undetermined etiology Ac renal failure on top of CKD 3 in Jan 2020 and Mar 14. Ac component likely related to vol depletion from vomiting Mild chronic hyponatremia, probably related to chronic diuretic therapy Chronic systolic and diastolic CHF. Echo of 02/19/20: LVEF 40-45%, dilated LA, mod to sev MR, AoV scl w/o stenosis, mod TR, PASP 35-40 mmHg. Echo of 03/18/20: LVEF 25-30%. Last echo 04/08/20: LVEF 30-35%, apical and anteroseptal akinesis, mod MR, mod TR, RVSP 26 mmHg - Life Vest in place Coronary artery disease with a history of coronary artery bypass surgery consisting of left internal mammary artery graft to left anterior descending artery, saphenous vein graft to right coronary artery, saphenous vein graft to diagonal artery, saphenous vein graft to first obtuse marginal artery, saphenous vein graft to second obtuse marginal artery in 1999 CAD: H/o CABG and mutiple subsequent PCIs. H/o RCA-SVG perforation on 11/28/18 at time of intervention for SVG occlusion by Dr Miranda. Last card cath on 11/29/18 (Dr Smith at [facility]): 40-50% LMCA, occluded LAD, patent LCX with occluded OMs, occluded RCA, patent HUBBARD-LAD, patent SVG-om, Patent SVG-RCA with patent distal stent (known to be Alp Xience 2.25x8 placed on 08/28/17) Hyperlipidemia being treated with statin therapy Diabetes mellitus, type II. Gastroesophageal reflux. Tobaccoism consisting of smoking cigars. We have asked him to quit Carotid arterial disease, mild, per ultrasonography of June 2017 Minimal ALT elevation, stable on serial evals Plan: May hold Plavix for 4-5 days if that is considered necessary for endoscopy Monitor labs Not suitable for KIZZY-inhib / ARB due to propensity to hyperkalemia Continue Life Vest RALPH AMAYA MD FACP [facility] CCDS Apr 11, 2020 12:24
[2020-04-11 18:47] VITALS: BP 132/66
--- NOTE | 2020-04-11 19:16 | NUR ---
bedside report received from THA ODONNELL, assume care of pt
--- NOTE | 2020-04-11 20:34 | Conscious Sedation/ASA ---
Conscious Sedation Pre-Proced Time 20:00 ASA Score 3 For ASA 3 and 4: Consider anesthesia and medical clearance. Also, for patients with a history of failed moderate sedation consider anesthesia. Airway Lungs Heart ASA score ASA 1: a normal healthy patient ASA 2: a patient with a mild systemic disease (mid diabetes, controlled hypertension, obesity ASA 3: a patient with a severe systemic disease that limits activity (angina, COPD, prior Myocardial infarction) ASA 4: a patient with an incapacitating disease that is a constant threat to life (CHF, renal failure) ASA 5: a moribund patient not expected to survive 24 hrs. (ruptured aneurysm) ASA 6: a declared brain- patient whose organs are being harvested. For emergent operations, add the letter E after the classification Mallampati Classification Grade 2 Sedation Plan Analgesia, Amnesia, Plan communicated to team members, Discussed options with patient/fam, Discussed risks with patient/fam The patient is an appropriate candidate to undergo the planned procedure, sedation, and anesthesia. The patient immediately re-assessed prior to indication. KADEN SCOTT MD Apr 11, 2020 20:34
--- NOTE | 2020-04-11 20:35 | Progress Note-Pre Operative ---
Pre-Operative Progress Note H&P Reviewed The H&P was reviewed, patient examined and no changes noted. Date Seen by Provider: Apr 11, 2020 Time Seen by Provider: 20:00 Date H&P Reviewed: Apr 11, 2020 Time H&P Reviewed: 20:00 Pre-Operative Diagnosis: GERD, dysphagia KADEN SCOTT MD Apr 11, 2020 20:35
[2020-04-11 21:15] VITALS: BP 115/60
--- NOTE | 2020-04-11 21:19 | NUR ---
pt refused Colace, Senokot & miralax, took melatonin for rest
[2020-04-11] MEDS: MELATONIN 3 MG TABLET PO PRN (21:24)
[2020-04-12] MEDS: ACETAMINOPHEN 500 MG TAB (TYLENOL) PO PRN (03:06)
[2020-04-12] MEDS: ISOSORBIDE MONONITRATE 60 MG (IMDUR) TAB PO SCH (03:06)
[2020-04-12 05:00] VITALS: BP 108/59
[2020-04-12 06:07] LABS: BASOPHILS # (AUTO) 0.1 10^3/uL (0.0-0.1); BASOPHILS % (AUTO) 1 % (0-10); EOSINOPHILS # (AUTO) 0.2 10^3/uL (0.0-0.3); EOSINOPHILS % (AUTO) 3 % (0-10); HEMATOCRIT 30 % (40-54); HEMOGLOBIN 10.4 g/dL (13.3-17.7); LYMPHOCYTES # (AUTO) 0.8 10^3/uL (1.0-4.0); LYMPHOCYTES % (AUTO) 11 % (12-44); MEAN CORPUSCULAR HEMOGLOBIN 33 pg (25-34); MEAN CORPUSCULAR HGB CONC 34 g/dL (32-36); MEAN CORPUSCULAR VOLUME 97 fL (80-99); MEAN PLATELET VOLUME 9.2 fL (9.0-12.2); MONOCYTES # (AUTO) 0.7 10^3/uL (0.0-1.0); MONOCYTES % (AUTO) 10 % (0-12); NEUTROPHILS # (AUTO) 5.5 10^3/uL (1.8-7.8); NEUTROPHILS % (AUTO) 75 % (42-75); PLATELET COUNT 309 10^3/uL (130-400); WHITE BLOOD COUNT 7.4 10^3/uL (4.3-11.0)
[2020-04-12 06:24] LABS: POTASSIUM 4.9 MMOL/L (3.6-5.0)
[2020-04-12 06:25] LABS: CALCIUM 8.5 MG/DL (8.5-10.1)
[2020-04-12 06:26] LABS: TOTAL PROTEIN 6.2 GM/DL (6.4-8.2)
[2020-04-12 06:28] LABS: BILIRUBIN,TOTAL 1.7 MG/DL (0.1-1.0)
[2020-04-12 06:30] LABS: CREATININE SERUM 1.33 MG/DL (0.60-1.30)
[2020-04-12] MEDS: MULTIVIT W/MINERALS TAB (THERAGRAN M) PO SCH (07:00)
[2020-04-12] MEDS: OMEGA 3 (FISH OIL) 1000 MG CAP PO SCH ×2 (08:00→18:07)
[2020-04-12] MEDS: MAGNESIUM OXIDE (MAG-OX)400 MG TAB PO SCH (08:00)
--- NOTE | 2020-04-12 08:12 | PM&R Progress Note ---
Subjective HPI/CC On Admission Date Seen by Provider: Apr 12, 2020 Time Seen by Provider: 10:00 Subjective/Events-last exam 04/12/20: Sodium level 127 Hgb 10.4 EGD today NPO for now but he is hungry Fluid restriction and sodium tablets improving sodium level at 127 04/11/20: EGD in morning Nausea and vomiting continues daily Reglan given with good results BM x 2 today O2 maintained 04/10/20: Emesis today as he does a lot at home Sodium level is 124 Salt tablets started along with fluid restriction No BM for several days 04/09/20: Very debilitated Tires out easily Lifevest maintained No BM yesterday Wants to know his blood type and since he appears to be very pale and hgb is low will type and screen to prepare for transfusion if needed BNP is very elevated Stopping IVF Had N/V and given Reglan Patient has severe weakness Frequent breaks required Very debilitated Urine is concentrated so will start gentle IVF Dyspnea is severe Prognosis guarded Very debilitated Checked meds and labs Conferred with RN Reviewed therapy notes Review of Systems General: Fatigue, Malaise Neurological: Weakness Objective Exam Vital Signs Vital Signs Date Time Temp Pulse Resp B/P (MAP) Pulse Ox O2 Delivery O2 Flow Rate FiO2 04/12/20 20:30 96 Room Air 04/12/20 16:05 36.4 58 16 120/58 (78) Capillary Refill : Less Than 3 Seconds General Appearance: No Apparent Distress, WD/WN, Chronically ill HEENT: PERRL/EOMI, Normal ENT Inspection, Pharynx Normal Neck: Full Range of Motion, Normal Inspection, Non Tender, Supple, Carotid Bruit Respiratory: Chest Non Tender, Lungs Clear, No Accessory Muscle Use, No Respiratory Distress, Decreased Breath Sounds Cardiovascular: Regular Rate, Rhythm, No Edema, No Gallop, No JVD, No Murmur, Normal Peripheral Pulses Gastrointestinal: Normal Bowel Sounds, No Organomegaly, No Pulsatile Mass, Non Tender, Soft Back: Normal Inspection, No CVA Tenderness, No Vertebral Tenderness Extremity: Normal Capillary Refill, Normal Inspection, Normal Range of Motion, Non Tender, No Calf Tenderness, No Pedal Edema Neurologic/Psychiatric: Alert, Oriented x3, No Motor/Sensory Deficits, solar business developer II- XII Norm as Tested, Abnormal Gait, Depressed Affect, Motor Weakness (generalized all extremities) Skin: Normal Color, Warm/Dry Lymphatic: No Adenopathy Results/Procedures Lab Laboratory Tests 04/12/20 05:27 Patient resulted labs reviewed. FIM Transfers Therapy Code Descriptions/Definitions Functional [place] Measure: 0=Not Assessed/NA 4=Minimal Assistance 1=Total Assistance 5=Supervision or Setup 2=Maximal Assistance 6=Modified [place] 3=Moderate Assistance 7=Complete IndependenceSCALE: Activities may be completed with or without assistive devices. 2-Dtciltotbf-lkhjqfp completes the activity by him/herself with no assistance from a helper. 5-Set-up or Clean-up Assistance-helper sets up or cleans up; patient completes activity. [place] assists only prior to or following the activity. 4-Supervision or Touching Assistance-helper provides verbal cues and/or touching/steadying and/or contact guard assistance as patient completes activity. Assistance may be provided throughout the activity or intermittently. 3-Partial/Moderate Assistance-helper does LESS THAN HALF the effort. [place] lifts, holds or supports trunk or limbs, but provides less than half the effort. 2-Substantial/Maximal Assistance-helper does MORE THAN HALF the effort. [place] lifts or holds trunk or limbs and provides more than half the effort. 7-Ufycuxuza-lrvpzd does ALL the effort. Patient does none of the effort to complete the activity. Or, the assistance of 2 or more helpers is required for the patient to complete the activity. If activity was not attempted, code reason: 7-Patient Refused. 9-Not Applicable-not attempted and the patient did not perform the activity before the current illness, exacerbation or injury. 10-Not Attempted due to Environmental Limitations-(lack of equipment, weather restraints, etc.). 88-Not Attempted due to Medical Conditions or Safety Concerns. Roll Left to Right (QC): 4 Sit to Lying (QC): 3 Sit to Stand (QC): 3 Chair/Jyk-bc-Jnovy Xfer(QC): 3 Car Transfer (QC): 88 (Pt unable to safetly attempt this visit. Will attempt tomorrow. ) Gait Training Does the Patient Walk?: Yes Distance: 5' x 2 Walk 10 feet (QC): 4 Walk 50 ft with 2 Turns(QC): 4 Walk 150 ft (QC): 88 Walking 10ft/uneven surface-QC: 88 Gait Persons Needed: 1 (plus w/c assist and IV assist) Gait Assistive Device: FWW Wheelchair Training Does the Pt Use a Wheelchair?: Yes Distance: 50 ft Wheel 50 ft with 2 turns (QC): 4 Wheel 150 ft (QC): 7 (fatigued) Type of Wheelchair: Manual Stair Training 1 Step (curb) (QC): 88 4 Steps (QC): 88 12 Steps (QC): 88 Balance Picking up an Object (QC): 88 ADL-Treatment Eating (QC): 6 Oral Hygiene (QC): 7 Bathing Location: L Arm, R Arm, L Upper Leg, R Upper Leg, L Lower Leg (including foot), R Lower Leg (including foot), Chest, Abdomen Shower/Bathe Self (QC): 7 Upper Body Dressing (QC): 7 Lower Body Dressing (QC): 7 On/Off Footwear (QC): 3 (Nrsg requested pt to have EMMANUEL hose. Assist to don EMMANUEL hose. Pt able to don/doff slippers and doff socks by self.) Toileting Hygiene (QC): 3 Toilet Transfer (QC): 3 Assessment/Plan Assessment and Plan Assess & Plan/Chief Complaint Assessment: Debility with myopathy CHF on lifevest HTN CRI HTN HLP Smoker ETOHism Hypoxia Hyponatremia COPD Plan: Monitor creatinine Cardiology consult Monitor pain IRF protocol 04/08/20: Very debilitated Work on stamina Maintain O2 IVF gentle for dehydration Monitor sodium level 04/09/20: Monitor sodium level Monitor creatinine Type and screen 04/10/20: Monitor emesis Monitor sodium level BM regimen 04/11/20: BM regimen successful O2 Monitor sodium level Very fragile and fatigued 04/12/20: Monitor Sodium EGD today Fluid restriction (1) Debility (2) Acute on chronic kidney failure (3) Alcohol dependence, daily use Status: Acute (4) HTN (hypertension) Status: Acute (5) CAD (coronary artery disease) (6) Hypokalemia (7) Status post fall Status: Acute (8) STEMI (ST elevation myocardial infarction) Status: Acute (9) Hypomagnesemia (10) Multifocal PVCs Status: Acute (11) PAD (peripheral artery disease) (12) Weakness Status: Acute (13) Renal insufficiency Status: Acute (14) CHF (congestive heart failure) Status: Acute CODI HERCULES DO Apr 12, 2020 08:12
[2020-04-12 08:30] VITALS: BP 139/67
--- NOTE | 2020-04-12 08:59 | Occupational Ther Daily Note ---
OT Current Status-Daily Note Subjective Pt alert, lying in bed. Pt to have EGD this afternoon. Pt stated that he thought he didn't have to do anything today. Pt educated on ARU expectations. Pt agrees to participate in OT session. Mental Status/Objective Patient Orientation: Person, Place, Time, Situation Attachments: IV, Other-See Comments (Life Vest) ADL-Treatment Pt declined shower. Agrees to sponge bath and changing clothing. Min A for supine to EOB and back. Pt takes increased time to complete tasks due to multi ple recovery breaks and slow movements. After set up, pt able to complete upper body bathing, used LH sponge to wash to B LE to ankles then declined to complete B feet stating that he had just put on anti-itch cream. Pt did not change Life Vest. Pt sat EOB to complete oral care, required assist to set up and clean up. Pt able to don shirt by self though assist to make sure that IV was not caught in shirt sleeve. Pt crossed foot over knee to don lower body clothing then assist to stand for safety due to pt's tendency to sit without warning, assist to hike back of pants over hips while pt hiked side of pants. Pt able to cleanse kimmy area though required assistance to cleanse buttocks. Pt doffed/donned shoes by self. After session, pt lying in bed with call light/phone in reach. All needs met in room. Therapy Code Descriptions/Definitions Functional [place] Measure: 0=Not Assessed/NA 4=Minimal Assistance 1=Total Assistance 5=Supervision or Setup 2=Maximal Assistance 6=Modified [place] 3=Moderate Assistance 7=Complete IndependenceSCALE: Activities may be completed with or without assistive devices. 0-Oleimpexuo-qxmzrmf completes the activity by him/herself with no assistance from a helper. 5-Set-up or Clean-up Assistance-helper sets up or cleans up; patient completes activity. [place] assists only prior to or following the activity. 4-Supervision or Touching Assistance-helper provides verbal cues and/or touching/steadying and/or contact guard assistance as patient completes activity. Assistance may be provided throughout the activity or intermittently. 3-Partial/Moderate Assistance-helper does LESS THAN HALF the effort. [place] lifts, holds or supports trunk or limbs, but provides less than half the effort. 2-Substantial/Maximal Assistance-helper does MORE THAN HALF the effort. [place] lifts or holds trunk or limbs and provides more than half the effort. 4-Uxifapnxn-toprvu does ALL the effort. Patient does none of the effort to complete the activity. Or, the assistance of 2 or more helpers is required for the patient to complete the activity. If activity was not attempted, code reason: 7-Patient Refused. 9-Not Applicable-not attempted and the patient did not perform the activity before the current illness, exacerbation or injury. 10-Not Attempted due to Environmental Limitations-(lack of equipment, weather restraints, etc.). 88-Not Attempted due to Medical Conditions or Safety Concerns. Oral Hygiene (QC): 5 Bathing Location: L Arm, R Arm, L Upper Leg, R Upper Leg, Chest, Abdomen, Perineal Area Shower/Bathe Self (QC): 3 (mod A) Upper Body Dressing (QC): 5 Lower Body Dressing (QC): 3 On/Off Footwear: 5 OT Short Term Goals Short Term Goals Time Frame: Apr 21, 2020 Eatin Oral hygiene: 6 Toileting hygiene: 3 Shower/bathe self: 3 Upper body dressin Lower body dressin Putting on/taking off footwear: 6 OT Fdc Goals Commission Specialist Goals Time Frame: Apr 28, 2020 Eating (QC): 6 Oral Hygiene (QC): 6 Toileting Hygiene (QC): 6 Shower/Bathe Self (QC): 6 Upper Body Dressing (QC): 6 Lower Body Dressing (QC): 6 On/Off Footwear (QC): 6 Additional Goals: 1-Demonstrate ADL Tasks, 2-Verbalize Understanding, 3- ImproveStrength/[place] 1=Demonstrate adherence to instructed precautions during ADL tasks. 2=Patient will verbalize/demonstrate understanding of assistive devices/modifications for ADL. 3=Patient will improve strength/tolerance for activity to enable patient to perform ADL's. OT Education/Plan Problem List/Assessment Assessment: Decreased Activ Tolerance, Decreased Safety Aware, Decreased UE Strength, Impaired Bed Mobility, Impaired Coordination, Impaired Funct Balance, Impaired Self-Care Skills, Restricted Funct UE ROM Discharge Recommendations Plan/Recommendations: Continue POC Treatment Plan/Plan of Care Patient would benefit from OT for education, treatment and training to promote independence in ADL's, mobility, safety and/or upper extremity function for ADL's. Plan of Care: ADL Retraining, Caregiver Training, Concurrent Therapy, Functional Mobility, Group Exercise/Act as Ind, UE Funct Exercise/Act, UE Neuromus Re-Ed/Coord, W/C Management Training Treatment Duration: Apr 28, 2020 Frequency: At least 5 of 7 days/Wk (IRF) Estimated Hrs Per Day: 1.5 hours per day Agreement: Yes Rehab Potential: Fair Time/GCodes Start Time: 07:20 Stop Time: 08:50 Total Time Billed (hr/min): 90 Billed Treatment Time 1 visit-ADL 6 (90 min) LYLY PHILLIPS Apr 12, 2020 08:59
[2020-04-12] MEDS: FOLIC ACID 1 MG TAB PO SCH (09:00)
[2020-04-12] MEDS: FAMOTIDINE 20 MG (PEPCID) TABLET PO SCH ×2 (09:00→21:31)
[2020-04-12] MEDS: SODIUM CHLORIDE 1 GM TABLET PO SCH ×2 (09:00→21:43)
[2020-04-12] MEDS: SENNA W/DOCUSATE (SENOKOT S) TABLET PO SCH ×2 (09:00→21:32)
[2020-04-12] MEDS: polyethylene glycoL POWDER 17 GM (MIRALAX) PACK PO SCH ×2 (09:00→21:30)
[2020-04-12] MEDS: DOCUSATE SODIUM 100 MG (COLACE) CAP PO SCH ×2 (09:00→21:31)
[2020-04-12] MEDS: THIAMINE 100 MG (VITAMIN B-1) TAB PO SCH (09:00)
--- NOTE | 2020-04-12 09:41 | Progress Note - Cardiology ---
Cardiology SOAP Progress Note Subjective: In bed. Continues to have episodes of nausea. No c/o CP or SOB. Awaiting endoscopy today by Dr. Clemente. Objective: I&O/Vital Signs 04/13/20 04/13/20 06:10 09:02 Temp 37.2 Pulse 63 61 Resp 20 B/P (MAP) 102/55 (71) 110/57 (74) Pulse Ox 95 O2 Delivery Room Air 04/13/20 00:00 Intake Total 240 ml Balance 240 ml Weight (Pounds): 186 Weight (Ounces): 8.0 Weight (Calculated Kilograms): 84.284023 Constitutional: AAO x 3, other (thin, frail) Respiratory: No accessory muscle use, No respiratory distress; chest expansion is symmetric, chest is bilaterally symmetric, lungs clear to auscultation Cardiovascular: regular rate-rhythm; No JVD; S1 and S2 Gastrointestional: soft, audible bowel sounds Extremities: other (bilat mod pedal edema) Neurologic/Psychiatric: grossly intact (moves all extremities) Skin: No rash on exposed areas, No ulcerations on exposed areas Results/Procedures: Labs Laboratory Tests 04/13/20 05:20: Sodium Level 126L, Potassium Level 5.1H, Chloride Level 94L, Carbon Dioxide Level 20L, Anion Gap 12, Blood Urea Nitrogen 18, Creatinine 1.42H, Estimat Glomerular Filtration Rate 48, BUN/Creatinine Ratio 13, Glucose Level 102, Calcium Level 8.9 Microbiology 04/11/20 MRSA Screen - Final, Complete MRSA not isolated 04/10/20 Urine Culture - Final, Complete 3 or more isolates A/P: Assessment: Generalized weakness of undetermined etiology Hyponatremia/hyperkalemia of undetermined etiology; nausea and vomiting may be contributing Nausea and vomiting and wgt loss of undetermined etiology Ac renal failure on top of CKD 3 in Jan 2020 and Mar 14. Ac component likely related to vol depletion from vomiting Mild chronic hyponatremia, probably related to chronic diuretic therapy Chronic systolic and diastolic CHF. Echo of 02/19/20: LVEF 40-45%, dilated LA, mod to sev MR, AoV scl w/o stenosis, mod TR, PASP 35-40 mmHg. Echo of 03/18/20: LVEF 25-30%. Last echo 04/08/20: LVEF 30-35%, apical and anteroseptal akinesis, mod MR, mod TR, RVSP 26 mmHg - Life Vest in place Coronary artery disease with a history of coronary artery bypass surgery consisting of left internal mammary artery graft to left anterior descending artery, saphenous vein graft to right coronary artery, saphenous vein graft to diagonal artery, saphenous vein graft to first obtuse marginal artery, saphenous vein graft to second obtuse marginal artery in 1999 CAD: H/o CABG and mutiple subsequent PCIs. H/o RCA-SVG perforation on 11/28/18 at time of intervention for SVG occlusion by Dr Miranda. Last card cath on 11/29/18 (Dr Smith at [facility]): 40-50% LMCA, occluded LAD, patent LCX with occluded OMs, occluded RCA, patent HUBBARD-LAD, patent SVG-om, Patent SVG-RCA with patent distal stent (known to be Alp Xience 2.25x8 placed on 08/28/17) Hyperlipidemia being treated with statin therapy Diabetes mellitus, type II. Gastroesophageal reflux. Tobaccoism consisting of smoking cigars. We have asked him to quit Carotid arterial disease, mild, per ultrasonography of June 2017 Minimal ALT elevation, stable on serial evals Plan: May hold Plavix for 4-5 days if that is considered necessary for endoscopy Monitor labs Not suitable for KIZZY-inhib / ARB due to propensity to hyperkalemia Continue Life Vest Endoscopy later today - resume Plavix following endoscopy as soon as possible, when safe from surgical stand point SHANT KIRBY Apr 12, 2020 09:41
[2020-04-12] MEDS: meTOprolol TARTRATE 50 MG (LOPRESSOR) TAB PO SCH ×2 (10:28→21:32)
[2020-04-12] MEDS: RANOLAZINE ER 500 MG TAB (RANEXA) PO SCH ×2 (10:29→21:37)
--- NOTE | 2020-04-12 11:01 | Physical Therapy Daily Note ---
PT Daily Note-Current Subjective Pt presents supine in bed. Pt agrees to PT (reluctantly). Pt voices no complaints of pain. Appearance At conclusion of PT treatment patient is assisted into recliner where he has access to tray, call button, and all needs have been met. Mental Status Patient Orientation: Person, Place, Time, Eyes Open, Situation Attachments: Other-See Comments (lifevest) Transfers SCALE: Activities may be completed with or without assistive devices. 1-Jhpfbvbyjp-umkgqef completes the activity by him/herself with no assistance from a helper. 5-Set-up or Clean-up Assistance-helper sets up or cleans up; patient completes activity. [place] assists only prior to or following the activity. 4-Supervision or Touching Assistance-helper provides verbal cues and/or touching/steadying and/or contact guard assistance as patient completes activity. Assistance may be provided throughout the activity or intermittently. 3-Partial/Moderate Assistance-helper does LESS THAN HALF the effort. [place] lifts, holds or supports trunk or limbs, but provides less than half the effort. 2-Substantial/Maximal Assistance-helper does MORE THAN HALF the effort. [place] lifts or holds trunk or limbs and provides more than half the effort. 6-Jfprqqfje-gqcesv does ALL the effort. Patient does none of the effort to complete the activity. Or, the assistance of 2 or more helpers is required for the patient to complete the activity. If activity was not attempted, code reason: 7-Patient Refused. 9-Not Applicable-not attempted and the patient did not perform the activity before the current illness, exacerbation or injury. 10-Not Attempted due to Environmental Limitations-(lack of equipment, weather restraints, etc.). 88-Not Attempted due to Medical Conditions or Safety Concerns. Lying to Sitting/Side of Bed(Q: 3 Sit to Stand (QC): 3 Chair/Rjg-uy-Zgrns Xfer(QC): 3 Pt needs mod assist with lying to EOB; pt requires therapist arms as use as mcclure drail to pull torso up as well as help scooting legs forward to EOB. Pt requires min assist with sit to stand and chair to chair transfers. Weight Bearing Full Weight Bearing Full Weight Bearing Gait Training Does the Patient Walk?: Yes Distance: 20' Walk 10 feet (QC): 4 Gait Assistive Device: FWW CGA. Pt believes distance set out is very far and that a wheelchair needs to follow close behind him; pt is able to make it with encouragement. Wheelchair Training Does the Pt Use a Wheelchair?: Yes Wheel 50 ft with 2 turns (QC): 3 Wheel 150 ft (QC): 3 Type of Wheelchair: Manual 200'x2 Pt requires min assist to facilitate progression and speed of wheelchair. Exercises NuStep Minutes: 15 NuStep Workload: 4 Treatments WC mobility and gait training. Assessment Current Status: Fair Progress Pt is improving his walking distance and does not lose balance during this session. Pt able to complete 15 min of activity on NuStep but requires breaks at 10' and 12'. PT Short Term Goals Short Term Goals Time Frame: Apr 14, 2020 Sit to lyin Lying to sitting on side of be: 4 Sit to stand: 4 Walk 150 feet: 4 Wheel 150 feet: 6 PT [facility]ci Goals Centrifugal Wax Molder Goals PT Fci Goals Time Frame: Apr 28, 2020 Roll Left & Right (QC): 6 Sit to Lying (QC): 6 Lying-Sitting on Side/Bed(QC): 6 Sit to Stand (QC): 6 Chair/Nuf-gc-Mqrlg Xfer(QC): 6 Toilet Transfer (QC): 6 Car Transfer (QC): 5 Does the Patient Walk: Yes Walk 10 feet (QC): 6 Walk 50ft with 2 Turns (QC): 6 Walk 150 ft (QC): 6 Walking 10ft on Uneven Surface: 5 1 Step (curb) (QC): 5 4 Steps (QC): 4 12 Steps (QC): 10 Picking up an Object (QC): 3 Wheel 50 feet with 2 turns (QC: 6 Wheel 150 feet: 6 PT Plan Problem List Problem List: Activity Tolerance, Functional Strength, Safety, Balance, Gait, Transfer, Bed Mobility, ROM Treatment/Plan Treatment Plan: Continue Plan of Care Treatment Plan: Bed Mobility, Education, Functional Activity [place], Functional Strength, Group Therapy, Gait, Safety, Therapeutic Exercise, Transfers Treatment Duration: Apr 28, 2020 Frequency: At least 5 of 7 days/Wk (IRF) Estimated Hrs Per Day: 1.5 hours per day Patient and/or Family Agrees t: Yes Safety Risks/Education Patient Education: Gait Training, Transfer Techniques, Correct Positioning, W/C Management, Safety Issues Teaching Recipient: Patient Teaching Methods: Demonstration, Discussion Response to Teaching: Reinforcement Needed Time/GCodes Time In: 1000 Time Out: 1100 Total Billed Treatment Time: 60 Total Billed Treatment 1 visit GT 15' FA 30' EX 15' RAFFAELE SANTOS PT Apr 12, 2020 11:01
--- NOTE | 2020-04-12 12:20 | NUR ---
PT LEFT THE FLOOR FOR EGD PROCEDURE.
[2020-04-12] MEDS ORDERED: LACTATED RINGERS 1,000 ML IV ONE (12:32)
[2020-04-12] MEDS ORDERED: HURRICAINE EXT TUBE (BENZOCAINE) ONE (12:32)
[2020-04-12] MEDS ORDERED: LIDOCAINE JELLY 2% 6 ML SYRINGE ONE (13:07)
[2020-04-12] MEDS ORDERED: proPOfol 200 MG/20 ML (DIPRIVAN) VIAL IV ONE (13:15)
--- NOTE | 2020-04-12 13:43 | Progress Note-Post Operative ---
Post-Operative Progess Note Surgeon (s)/Editor Publications (s) Surgeon KADEN SCOTT MD Editor Publications: none Pre-Operative Diagnosis GERD, dysphagia Post-Operative Diagnosis reflux esophagitis(stage 2-3), mild distal esoph stricture, small HH(2cm), gastroparesis, no distal obstructions. Procedure & Operative Findings Date of Procedure 04/12/20 Procedure Performed/Findings EGD with bx and balloon dilatation. Anesthesia Type mac Estimated Blood Loss Estimated blood loss (mL): minimal Specimens/Packing Specimens Removed ge jxn, antrum KADEN SCOTT MD Apr 12, 2020 13:43
--- NOTE | 2020-04-12 14:00 | NUR ---
PT RETURNED TO THE FLOOR.
--- NOTE | 2020-04-12 14:38 | Physical Therapy Daily Note ---
PT Daily Note-Current Subjective Pt present laying supine in bed; pt appears to have vomit on his L shoulder but does not recall throwing up. With encouragement given, pt agrees to PT. Pt reports no pain. Nurse notified of vomit. Appearance At conclusion of PT treatment pt returns to bed where he has access to tray, call button, and all needs have been met. Mental Status Patient Orientation: Person, Place, Time, Eyes Open, Situation Transfers SCALE: Activities may be completed with or without assistive devices. 4-Emgkvkndwq-axxiygh completes the activity by him/herself with no assistance from a helper. 5-Set-up or Clean-up Assistance-helper sets up or cleans up; patient completes activity. [place] assists only prior to or following the activity. 4-Supervision or Touching Assistance-helper provides verbal cues and/or touching/steadying and/or contact guard assistance as patient completes activity. Assistance may be provided throughout the activity or intermittently. 3-Partial/Moderate Assistance-helper does LESS THAN HALF the effort. [place] lifts, holds or supports trunk or limbs, but provides less than half the effort. 2-Substantial/Maximal Assistance-helper does MORE THAN HALF the effort. [place] lifts or holds trunk or limbs and provides more than half the effort. 1-Soscucsow-ggyfam does ALL the effort. Patient does none of the effort to complete the activity. Or, the assistance of 2 or more helpers is required for the patient to complete the activity. If activity was not attempted, code reason: 7-Patient Refused. 9-Not Applicable-not attempted and the patient did not perform the activity before the current illness, exacerbation or injury. 10-Not Attempted due to Environmental Limitations-(lack of equipment, weather restraints, etc.). 88-Not Attempted due to Medical Conditions or Safety Concerns. Sit to Lying (QC): 3 Lying to Sitting/Side of Bed(Q: 3 Sit to Stand (QC): 3 Pt requires min to mod assist with bed mobility; pt needs assistance with LEs and therapists forearm to act as handrail to pull torso upright. Pt needs min assist with sit to stands. Weight Bearing Full Weight Bearing Full Weight Bearing Gait Training Does the Patient Walk?: Yes Distance: 15'x2 Walk 10 feet (QC): 4 Gait Assistive Device: FWW Pt demonstrates small shuffling steps; pt is worried about legs feeling weak and needing a wheelchair to follow behind him. Exercises Supine Ex: Heel Slides Supine Reps: 20 Seated Therapy Exercises: Ankle pumps, Long arc quads, Hip abd/add (2s pillow squeeze) Seated Reps: 20 Treatments LE strengthening Assessment Current Status: Fair Progress Pt requires consistent encouragement to participate in therapy. Pt does not want to get out of bed or walk, but is compliant to do this so that his bed can be cleaned. Pt experiences fatigue with ambulation. PT Short Term Goals Short Term Goals Time Frame: Apr 14, 2020 Sit to lyin Lying to sitting on side of be: 4 Sit to stand: 4 Walk 150 feet: 4 Wheel 150 feet: 6 PT [facility] Goals [facility] Goals PT [facility] Goals Time Frame: Apr 28, 2020 Roll Left & Right (QC): 6 Sit to Lying (QC): 6 Lying-Sitting on Side/Bed(QC): 6 Sit to Stand (QC): 6 Chair/Eiw-rb-Rjfmt Xfer(QC): 6 Toilet Transfer (QC): 6 Car Transfer (QC): 5 Does the Patient Walk: Yes Walk 10 feet (QC): 6 Walk 50ft with 2 Turns (QC): 6 Walk 150 ft (QC): 6 Walking 10ft on Uneven Surface: 5 1 Step (curb) (QC): 5 4 Steps (QC): 4 12 Steps (QC): 10 Picking up an Object (QC): 3 Wheel 50 feet with 2 turns (QC: 6 Wheel 150 feet: 6 PT Plan Problem List Problem List: Activity Tolerance, Functional Strength, Safety, Balance, Gait, Transfer, Bed Mobility, ROM Treatment/Plan Treatment Plan: Continue Plan of Care Treatment Plan: Bed Mobility, Education, Functional Activity Davina, Functional Strength, Group Therapy, Gait, Safety, Therapeutic Exercise, Transfers Treatment Duration: Apr 28, 2020 Frequency: At least 5 of 7 days/Wk (IRF) Estimated Hrs Per Day: 1.5 hours per day Patient and/or Family Agrees t: Yes Safety Risks/Education Patient Education: Gait Training, Transfer Techniques, Correct Positioning, Safety Issues Teaching Recipient: Patient Teaching Methods: Demonstration, Discussion Response to Teaching: Reinforcement Needed Time/GCodes Time In: 1400 Time Out: 1430 Total Billed Treatment Time: 30 Total Billed Treatment 1 visit FA 15' EX 15' RAFFAELE SANTOS PT Apr 12, 2020 14:37
[2020-04-12] MEDS: FUROSEMIDE 20 MG (LASIX) TAB PO SCH (14:47)
[2020-04-12 16:05] VITALS: BP 120/58
[2020-04-12] MEDS: METOCLOPRAMIDE INJ 10 MG/2 ML (REGLAN) IVP SCH (18:32)
[2020-04-12] MEDS: MELATONIN 3 MG TABLET PO PRN (21:31)
[2020-04-13] MEDS: METOCLOPRAMIDE INJ 10 MG/2 ML (REGLAN) IVP SCH ×4 (00:16→17:16)
[2020-04-13] MEDS: ISOSORBIDE MONONITRATE 60 MG (IMDUR) TAB PO SCH (02:53)
[2020-04-13] MEDS: ACETAMINOPHEN 500 MG TAB (TYLENOL) PO PRN (02:53)
[2020-04-13] MEDS: MULTIVIT W/MINERALS TAB (THERAGRAN M) PO SCH (05:57)
[2020-04-13 06:06] LABS: POTASSIUM 5.1 MMOL/L (3.6-5.0)
[2020-04-13 06:07] LABS: CALCIUM 8.9 MG/DL (8.5-10.1)
[2020-04-13 06:10] VITALS: BP 102/55
[2020-04-13 06:11] LABS: CREATININE SERUM 1.42 MG/DL (0.60-1.30)
--- NOTE | 2020-04-13 08:33 | PM&R Progress Note ---
Subjective HPI/CC On Admission Date Seen by Provider: Apr 13, 2020 Time Seen by Provider: 10:00 Subjective/Events-last exam 04/13/20: Sodium level 126 Gastroparesis was found on EGD so started on Reglan IV Q6hrs Dilated his esophagus also Labs remain stable 04/12/20: Sodium level 127 Hgb 10.4 EGD today NPO for now but he is hungry Fluid restriction and sodium tablets improving sodium level at 127 04/11/20: EGD in morning Nausea and vomiting continues daily Reglan given with good results BM x 2 today O2 maintained 04/10/20: Emesis today as he does a lot at home Sodium level is 124 Salt tablets started along with fluid restriction No BM for several days 04/09/20: Very debilitated Tires out easily Lifevest maintained No BM yesterday Wants to know his blood type and since he appears to be very pale and hgb is low will type and screen to prepare for transfusion if needed BNP is very elevated Stopping IVF Had N/V and given Reglan Patient has severe weakness Frequent breaks required Very debilitated Urine is concentrated so will start gentle IVF Dyspnea is severe Prognosis guarded Very debilitated Checked meds and labs Conferred with RN Reviewed therapy notes Review of Systems General: Fatigue, Malaise Pulmonary: Dyspnea, Cough Neurological: Weakness Objective Exam Vital Signs Vital Signs Date Time Temp Pulse Resp B/P (MAP) Pulse Ox O2 Delivery O2 Flow Rate FiO2 04/13/20 21:22 Room Air 04/13/20 21:15 60 18 125/67 (86) 94 04/13/20 16:12 36.0 Capillary Refill : Less Than 3 Seconds General Appearance: No Apparent Distress, WD/WN, Chronically ill HEENT: PERRL/EOMI, Normal ENT Inspection, Pharynx Normal Neck: Full Range of Motion, Normal Inspection, Non Tender, Supple, Carotid Bruit Respiratory: Chest Non Tender, Lungs Clear, No Accessory Muscle Use, No Respiratory Distress, Decreased Breath Sounds Cardiovascular: Regular Rate, Rhythm, No Edema, No Gallop, No JVD, No Murmur, Normal Peripheral Pulses Gastrointestinal: Normal Bowel Sounds, No Organomegaly, No Pulsatile Mass, Non Tender, Soft Back: Normal Inspection, No CVA Tenderness, No Vertebral Tenderness Extremity: Normal Capillary Refill, Normal Inspection, Normal Range of Motion, Non Tender, No Calf Tenderness, No Pedal Edema Neurologic/Psychiatric: Alert, Oriented x3, No Motor/Sensory Deficits, check services clerk II- XII Norm as Tested, Abnormal Gait, Depressed Affect, Motor Weakness (generalized all extremities) Skin: Normal Color, Warm/Dry Lymphatic: No Adenopathy Results/Procedures Lab Laboratory Tests 04/13/20 10:39 04/14/20 04:35 Patient resulted labs reviewed. FIM Transfers Therapy Code Descriptions/Definitions Functional [place] Measure: 0=Not Assessed/NA 4=Minimal Assistance 1=Total Assistance 5=Supervision or Setup 2=Maximal Assistance 6=Modified [place] 3=Moderate Assistance 7=Complete IndependenceSCALE: Activities may be completed with or without assistive devices. 7-Fxtncarbey-jzntujf completes the activity by him/herself with no assistance from a helper. 5-Set-up or Clean-up Assistance-helper sets up or cleans up; patient completes activity. [place] assists only prior to or following the activity. 4-Supervision or Touching Assistance-helper provides verbal cues and/or touching/steadying and/or contact guard assistance as patient completes activity. Assistance may be provided throughout the activity or intermittently. 3-Partial/Moderate Assistance-helper does LESS THAN HALF the effort. [place] lifts, holds or supports trunk or limbs, but provides less than half the effort. 2-Substantial/Maximal Assistance-helper does MORE THAN HALF the effort. [place] lifts or holds trunk or limbs and provides more than half the effort. 6-Arrugctri-gquumn does ALL the effort. Patient does none of the effort to comp lete the activity. Or, the assistance of 2 or more helpers is required for the patient to complete the activity. If activity was not attempted, code reason: 7-Patient Refused. 9-Not Applicable-not attempted and the patient did not perform the activity before the current illness, exacerbation or injury. 10-Not Attempted due to Environmental Limitations-(lack of equipment, weather restraints, etc.). 88-Not Attempted due to Medical Conditions or Safety Concerns. Roll Left to Right (QC): 4 Sit to Lying (QC): 3 Sit to Stand (QC): 3 Chair/Jgw-uj-Xyuef Xfer(QC): 3 Car Transfer (QC): 88 (Pt unable to safetly attempt this visit. Will attempt tomorrow. ) Gait Training Does the Patient Walk?: Yes Distance: 15'x2 Walk 10 feet (QC): 4 Walk 50 ft with 2 Turns(QC): 4 Walk 150 ft (QC): 88 Walking 10ft/uneven surface-QC: 88 Gait Persons Needed: 1 (plus w/c assist and IV assist) Gait Assistive Device: FWW Wheelchair Training Does the Pt Use a Wheelchair?: Yes Distance: 50 ft Wheel 50 ft with 2 turns (QC): 3 Wheel 150 ft (QC): 3 Type of Wheelchair: Manual Stair Training 1 Step (curb) (QC): 88 4 Steps (QC): 88 12 Steps (QC): 88 Balance Picking up an Object (QC): 88 ADL-Treatment Eating (QC): 6 Oral Hygiene (QC): 5 Bathing Location: L Arm, R Arm, L Upper Leg, R Upper Leg, Chest, Abdomen, Perineal Area Shower/Bathe Self (QC): 3 (mod A) Upper Body Dressing (QC): 5 Lower Body Dressing (QC): 3 On/Off Footwear (QC): 5 Toileting Hygiene (QC): 3 Toilet Transfer (QC): 3 Assessment/Plan Assessment and Plan Assess & Plan/Chief Complaint Assessment: Debility with myopathy CHF on lifevest HTN CRI HTN HLP Smoker ETOHism Hypoxia Hyponatremia COPD Plan: Monitor creatinine Cardiology consult Monitor pain IRF protocol 04/08/20: Very debilitated Work on stamina Maintain O2 IVF gentle for dehydration Monitor sodium level 04/09/20: Monitor sodium level Monitor creatinine Type and screen 04/10/20: Monitor emesis Monitor sodium level BM regimen 04/11/20: BM regimen successful O2 Monitor sodium level Very fragile and fatigued 04/12/20: Monitor Sodium EGD today Fluid restriction 04/13/20: Monitor sodium level Prognosis poor Likely will need residential (1) Debility (2) Acute on chronic kidney failure (3) Alcohol dependence, daily use Status: Acute (4) HTN (hypertension) Status: Acute (5) CAD (coronary artery disease) (6) Hypokalemia (7) Status post fall Status: Acute (8) STEMI (ST elevation myocardial infarction) Status: Acute (9) Hypomagnesemia (10) Multifocal PVCs Status: Acute (11) PAD (peripheral artery disease) (12) Weakness Status: Acute (13) Renal insufficiency Status: Acute (14) CHF (congestive heart failure) Status: Acute CODI HERCULES DO Apr 13, 2020 08:33
[2020-04-13] MEDS: RANOLAZINE ER 500 MG TAB (RANEXA) PO SCH ×2 (08:56→21:19)
[2020-04-13] MEDS: THIAMINE 100 MG (VITAMIN B-1) TAB PO SCH (08:56)
[2020-04-13] MEDS: MAGNESIUM OXIDE (MAG-OX)400 MG TAB PO SCH (08:56)
[2020-04-13] MEDS: meTOprolol TARTRATE 50 MG (LOPRESSOR) TAB PO SCH ×2 (08:56→21:19)
[2020-04-13] MEDS: polyethylene glycoL POWDER 17 GM (MIRALAX) PACK PO SCH ×2 (08:56→21:22)
[2020-04-13] MEDS: FAMOTIDINE 20 MG (PEPCID) TABLET PO SCH ×2 (08:56→21:19)
[2020-04-13] MEDS: FOLIC ACID 1 MG TAB PO SCH (08:56)
[2020-04-13] MEDS: SENNA W/DOCUSATE (SENOKOT S) TABLET PO SCH ×2 (08:58→21:18)
[2020-04-13] MEDS: SODIUM CHLORIDE 1 GM TABLET PO SCH ×2 (08:58→21:19)
[2020-04-13] MEDS: OMEGA 3 (FISH OIL) 1000 MG CAP PO SCH ×2 (08:58→17:20)
[2020-04-13] MEDS: DOCUSATE SODIUM 100 MG (COLACE) CAP PO SCH ×2 (08:58→21:22)
--- NOTE | 2020-04-13 09:01 | Physical Therapy Daily Note ---
PT Daily Note-Current Subjective Pt presents supine in bed. Pt agrees to PT after education on its importance. Pt reports no pain, but does feel very weak this morning. O2 is 90% on room air, 59bpm, BP 105/59 and then 110/60. Appearance At conclusion of PT treatment pt is assisted to recliner. Pt has access to tray, call button, all needs have been met and nurse is present in room. Mental Status Patient Orientation: Person, Place, Time, Eyes Open, Situation Transfers SCALE: Activities may be completed with or without assistive devices. 2-Wabfmobthn-qyleelf completes the activity by him/herself with no assistance from a helper. 5-Set-up or Clean-up Assistance-helper sets up or cleans up; patient completes activity. [place] assists only prior to or following the activity. 4-Supervision or Touching Assistance-helper provides verbal cues and/or touching/steadying and/or contact guard assistance as patient completes activity. Assistance may be provided throughout the activity or intermittently. 3-Partial/Moderate Assistance-helper does LESS THAN HALF the effort. [place] lifts, holds or supports trunk or limbs, but provides less than half the effort. 2-Substantial/Maximal Assistance-helper does MORE THAN HALF the effort. [place] lifts or holds trunk or limbs and provides more than half the effort. 5-Bexqnqela-yneitp does ALL the effort. Patient does none of the effort to complete the activity. Or, the assistance of 2 or more helpers is required for the patient to complete the activity. If activity was not attempted, code reason: 7-Patient Refused. 9-Not Applicable-not attempted and the patient did not perform the activity before the current illness, exacerbation or injury. 10-Not Attempted due to Environmental Limitations-(lack of equipment, weather restraints, etc.). 88-Not Attempted due to Medical Conditions or Safety Concerns. Lying to Sitting/Side of Bed(Q: 3 Sit to Stand (QC): 3 Chair/Cmx-fg-Acpic Xfer(QC): 3 Mod assist Weight Bearing Full Weight Bearing Full Weight Bearing Wheelchair Training Does the Pt Use a Wheelchair?: Yes Wheel 50 ft with 2 turns (QC): 4 Wheel 150 ft (QC): 3 Type of Wheelchair: Manual Pt able to propel self at a slow rate for first 50' with SBA. Pt recieved min assist for 150' to gym and 200' returning to room. Exercises Seated Therapy Exercises: Ankle pumps, Long arc quads Seated Reps: 20 Standing in parallel bars 30s, 45s, 60s; pt relied on UE to support weight Treatments Wheelchair mobility and standing balance Assessment Current Status: Fair Progress Pt requires multiple attempts to stand; when pt complains of weakness and shakiness his blood pressure and O2sat was taken, nurse was also notified of this. Patient improved his standing endurance once in the gym parallel bars; pt cued to stand up straight. PT Short Term Goals Short Term Goals Time Frame: Apr 14, 2020 Sit to lyin Lying to sitting on side of be: 4 Sit to stand: 4 Walk 150 feet: 4 Wheel 150 feet: 6 PT [facility] Goals Vehicle Damage Appraiser Goals PT Vehicle Damage Appraiser Goals Time Frame: Apr 28, 2020 Roll Left & Right (QC): 6 Sit to Lying (QC): 6 Lying-Sitting on Side/Bed(QC): 6 Sit to Stand (QC): 6 Chair/Fjx-fz-Pxwgb Xfer(QC): 6 Toilet Transfer (QC): 6 Car Transfer (QC): 5 Does the Patient Walk: Yes Walk 10 feet (QC): 6 Walk 50ft with 2 Turns (QC): 6 Walk 150 ft (QC): 6 Walking 10ft on Uneven Surface: 5 1 Step (curb) (QC): 5 4 Steps (QC): 4 12 Steps (QC): 10 Picking up an Object (QC): 3 Wheel 50 feet with 2 turns (QC: 6 Wheel 150 feet: 6 PT Plan Problem List Problem List: Activity Tolerance, Functional Strength, Safety, Balance, Gait, Transfer, Bed Mobility, ROM Treatment/Plan Treatment Plan: Continue Plan of Care Treatment Plan: Bed Mobility, Education, Functional Activity [place], Functional Strength, Group Therapy, Gait, Safety, Therapeutic Exercise, Transfers Treatment Duration: Apr 28, 2020 Frequency: At least 5 of 7 days/Wk (IRF) Estimated Hrs Per Day: 1.5 hours per day Patient and/or Family Agrees t: Yes Safety Risks/Education Patient Education: Transfer Techniques, Correct Positioning, W/C Management, Safety Issues Teaching Recipient: Patient Teaching Methods: Demonstration, Discussion Response to Teaching: Reinforcement Needed Time/GCodes Time In: 0800 Time Out: 0900 Total Billed Treatment Time: 60 Total Billed Treatment 1 visit NM 15' FA 45' RAFFAELE SANTOS PT Apr 13, 2020 09:01
[2020-04-13 09:02] VITALS: BP 110/57
--- NOTE | 2020-04-13 10:08 | Progress Note - Cardiology ---
Cardiology SOAP Progress Note Subjective: Sitting up in recliner this morning. Gen weakness. No c/o CP or dyspnea. No Life Vest shocks. No c/o nausea or emesis today. Objective: I&O/Vital Signs 04/13/20 04/13/20 04/13/20 06:10 09:02 09:59 Temp 37.2 Pulse 63 61 Resp 20 B/P (MAP) 102/55 (71) 110/57 (74) Pulse Ox 95 O2 Delivery Room Air Room Air 04/13/20 00:00 Intake Total 240 ml Balance 240 ml Weight (Pounds): 186 Weight (Ounces): 8.0 Weight (Calculated Kilograms): 84.971931 Constitutional: AAO x 3, other (thin, frail) Respiratory: No accessory muscle use, No respiratory distress; chest expansion is symmetric, chest is bilaterally symmetric, lungs clear to auscultation Cardiovascular: regular rate-rhythm; No JVD; S1 and S2 Gastrointestional: soft, audible bowel sounds Extremities: other (bilat mod pedal edema) Neurologic/Psychiatric: grossly intact (moves all extremities) Skin: No rash on exposed areas, No ulcerations on exposed areas Results/Procedures: Labs Laboratory Tests 04/13/20 05:20: Sodium Level 126L, Potassium Level 5.1H, Chloride Level 94L, Carbon Dioxide Level 20L, Anion Gap 12, Blood Urea Nitrogen 18, Creatinine 1.42H, Estimat Glomerular Filtration Rate 48, BUN/Creatinine Ratio 13, Glucose Level 102, Calcium Level 8.9 04/13/20 10:39: Potassium Level 5.0 Microbiology 04/11/20 MRSA Screen - Final, Complete MRSA not isolated 04/10/20 Urine Culture - Final, Complete 3 or more isolates A/P: Assessment: Generalized weakness of undetermined etiology S/P endoscopy on 04-12-[address] Clemente showing gastroparesis, gastritis, esophageal stricture (ballooning), hiatal hernia Hyponatremia/hyperkalemia of undetermined etiology; nausea and vomiting may be contributing Nausea and vomiting and wgt loss of undetermined etiology Ac renal failure on top of CKD 3 in Jan 2020 and Mar 14. Ac component likely related to vol depletion from vomiting Mild chronic hyponatremia, probably related to chronic diuretic therapy Chronic systolic and diastolic CHF. Echo of 02/19/20: LVEF 40-45%, dilated LA, mod to sev MR, AoV scl w/o stenosis, mod TR, PASP 35-40 mmHg. Echo of 03/18/20: LVEF 25-30%. Last echo 04/08/20: LVEF 30-35%, apical and anteroseptal akinesis, mod MR, mod TR, RVSP 26 mmHg - Life Vest in place Coronary artery disease with a history of coronary artery bypass surgery consisting of left internal mammary artery graft to left anterior descending artery, saphenous vein graft to right coronary artery, saphenous vein graft to diagonal artery, saphenous vein graft to first obtuse marginal artery, saphenous vein graft to second obtuse marginal artery in 1999 CAD: H/o CABG and mutiple subsequent PCIs. H/o RCA-SVG perforation on 11/28/18 at time of intervention for SVG occlusion by Dr Miranda. Last card cath on 11/29/18 (Dr Smith at [facility]): 40-50% LMCA, occluded LAD, patent LCX with occluded OMs, occluded RCA, patent HUBBARD-LAD, patent SVG-om, Patent SVG-RCA with patent distal stent (known to be Alp Xience 2.25x8 placed on 08/28/17) Hyperlipidemia being treated with statin therapy Diabetes mellitus, type II. Gastroesophageal reflux. Tobaccoism consisting of smoking cigars. We have asked him to quit Carotid arterial disease, mild, per ultrasonography of June 2017 Minimal ALT elevation, stable on serial evals Plan: Resume Plavix and ASA today if ok with Dr. Clemente Monitor labs Not suitable for KIZZY-inhib / ARB due to propensity to hyperkalemia Continue Life Vest S/P endoscopy by Dr. Clemente on 04-12-2020 Re-check potassium today SHANT KIRBY Apr 13, 2020 10:08
--- NOTE | 2020-04-13 10:16 | NUR ---
HBAIMA HERE. INFORMED OF POTASSIUM- 5.1 AND EXTREME FATIGUE AND WEAKNESS.
--- NOTE | 2020-04-13 11:05 | NUR ---
OK TO RESUME ASA AND PLAVIX TODAY PER DR. SCOTT.
--- NOTE | 2020-04-13 12:27 | Progress Note - Cardiology ---
Cardiology SOAP Progress Note Subjective: Has been able to retain food today No cp or palp or syncope No shortness of breath at rest Gen weakness No focal weakness Objective: I&O/Vital Signs 04/13/20 04/13/20 04/13/20 06:10 09:02 09:59 Temp 37.2 Pulse 63 61 Resp 20 B/P (MAP) 102/55 (71) 110/57 (74) Pulse Ox 95 O2 Delivery Room Air Room Air 04/13/20 00:00 Intake Total 240 ml Balance 240 ml Weight (Pounds): 186 Weight (Ounces): 8.0 Weight (Calculated Kilograms): 84.373179 Constitutional: AAO x 3, other (thin, frail) Respiratory: No accessory muscle use, No respiratory distress; chest expansion is symmetric, chest is bilaterally symmetric, lungs clear to auscultation Cardiovascular: regular rate-rhythm; No JVD; S1 and S2 Gastrointestional: soft, audible bowel sounds Extremities: other (bilat mod pedal edema) Neurologic/Psychiatric: grossly intact (moves all extremities) Skin: No rash on exposed areas, No ulcerations on exposed areas Results/Procedures: Labs Laboratory Tests 04/13/20 05:20: Sodium Level 126L, Potassium Level 5.1H, Chloride Level 94L, Carbon Dioxide Level 20L, Anion Gap 12, Blood Urea Nitrogen 18, Creatinine 1.42H, Estimat [place] merular Filtration Rate 48, BUN/Creatinine Ratio 13, Glucose Level 102, Calcium Level 8.9 04/13/20 10:39: Potassium Level 5.0 Microbiology 04/11/20 MRSA Screen - Final, Complete MRSA not isolated 04/10/20 Urine Culture - Final, Complete 3 or more isolates Laboratory Tests 04/12/20 05:27 04/13/20 05:20 04/13/20 10:39 A/P: Assessment: Generalized weakness of undetermined etiology S/P endoscopy on 04-12-[address] Clemente showing gastroparesis, gastritis, esopha geal stricture (ballooning performed the same day), hiatal hernia Hyponatremia/hyperkalemia of undetermined etiology; nausea and vomiting may be contributing Nausea and vomiting and wgt loss of undetermined etiology Ac renal failure on top of CKD 3 in Jan 2020 and Mar 14. Ac component likely related to vol depletion from vomiting Mild chronic hyponatremia, probably related to chronic diuretic therapy Chronic systolic and diastolic CHF. Echo of 02/19/20: LVEF 40-45%, dilated LA, mod to sev MR, AoV scl w/o stenosis, mod TR, PASP 35-40 mmHg. Echo of 03/18/20: LVEF 25-30%. Last echo 04/08/20: LVEF 30-35%, apical and anteroseptal akinesis, mod MR, mod TR, RVSP 26 mmHg - Life Vest in place Coronary artery disease with a history of coronary artery bypass surgery consisting of left internal mammary artery graft to left anterior descending artery, saphenous vein graft to right coronary artery, saphenous vein graft to diagonal artery, saphenous vein graft to first obtuse marginal artery, saphenous vein graft to second obtuse marginal artery in 1999 CAD: H/o CABG and mutiple subsequent PCIs. H/o RCA-SVG perforation on 11/28/18 at time of intervention for SVG occlusion by Dr Miranda. Last card cath on 11/29/18 (Dr Smith at [facility], [place]): 40-50% LMCA, occluded LAD, patent LCX with occluded OMs, occluded RCA, patent HUBBARD-LAD, patent SVG-om, Patent SVG-RCA with patent distal stent (known to be Alp Xience 2.25x8 placed on 08/28/17) Hyperlipidemia being treated with statin therapy Diabetes mellitus, type II. Gastroesophageal reflux. Tobaccoism consisting of smoking cigars. We have asked him to quit Carotid arterial disease, mild, per ultrasonography of June 2017 Minimal ALT elevation, stable on serial evals Plan: Resume Plavix and ASA today if ok with Dr. Clemente Monitor labs Not suitable for KIZZY-inhib / ARB due to propensity to hyperkalemia Continue Life Vest S/P endoscopy by Dr. Clemente on 04-12-2020 Re-check potassium today RALPH AMAYA MD FACP [facility] Apr 13, 2020 12:27
--- NOTE | 2020-04-13 12:54 | Physical Therapy Daily Note ---
PT Daily Note-Current Subjective Pt presents sitting upright in wheelchair in rehab gym under supervision of OT. Pt agrees to PT. Pt reports no pain. Appearance At conclusion of PT treatment patient is assisted into bed where he has access to tray, call button, and all needs have been met. Mental Status Patient Orientation: Person, Place, Time, Eyes Open, Situation Transfers SCALE: Activities may be completed with or without assistive devices. 7-Cpvosonchv-vototlb completes the activity by him/herself with no assistance from a helper. 5-Set-up or Clean-up Assistance-helper sets up or cleans up; patient completes activity. [place] assists only prior to or following the activity. 4-Supervision or Touching Assistance-helper provides verbal cues and/or touching/steadying and/or contact guard assistance as patient completes activity. Assistance may be provided throughout the activity or intermittently. 3-Partial/Moderate Assistance-helper does LESS THAN HALF the effort. [place] lifts, holds or supports trunk or limbs, but provides less than half the effort. 2-Substantial/Maximal Assistance-helper does MORE THAN HALF the effort. [place] lifts or holds trunk or limbs and provides more than half the effort. 1-Fdmldsrfy-kgvpcf does ALL the effort. Patient does none of the effort to complete the activity. Or, the assistance of 2 or more helpers is required for the patient to complete the activity. If activity was not attempted, code reason: 7-Patient Refused. 9-Not Applicable-not attempted and the patient did not perform the activity before the current illness, exacerbation or injury. 10-Not Attempted due to Environmental Limitations-(lack of equipment, weather restraints, etc.). 88-Not Attempted due to Medical Conditions or Safety Concerns. Sit to Lying (QC): 3 Sit to Stand (QC): 3 Chair/Fig-zq-Yojrj Xfer(QC): 3 Weight Bearing Full Weight Bearing Full Weight Bearing Wheelchair Training Does the Pt Use a Wheelchair?: Yes Wheel 50 ft with 2 turns (QC): 3 Wheel 150 ft (QC): 3 Type of Wheelchair: Manual 200' pt requires encouragement to propel himself while PT gives min assist Exercises Seated Therapy Exercises: Long arc quads Seated Reps: 10 Seated balance with balloon tosses Treatments Seated balance and wheelchair mobility Assessment Current Status: Fair Progress Pt demonstrates improvement in seated balance as compared to this morning. Pt struggles to stand and transfers via pivoting; pt receives assistance with guiding hips onto secondary surface. Co-treated with OT due to patient's limitations in strength, mobility, and ability to coordinated UEs and LEs. PT focused on transfers, wheelchair mobility, and monitoring seated balance while OT focused on UE involvement. PT Short Term Goals Short Term Goals Time Frame: Apr 14, 2020 Sit to lyin Lying to sitting on side of be: 4 Sit to stand: 4 Walk 150 feet: 4 Wheel 150 feet: 6 PT Group Home Goals Group Home Goals PT Cash Management Clerk Goals Time Frame: Apr 28, 2020 Roll Left & Right (QC): 6 Sit to Lying (QC): 6 Lying-Sitting on Side/Bed(QC): 6 Sit to Stand (QC): 6 Chair/Hin-na-Vhnrw Xfer(QC): 6 Toilet Transfer (QC): 6 Car Transfer (QC): 5 Does the Patient Walk: Yes Walk 10 feet (QC): 6 Walk 50ft with 2 Turns (QC): 6 Walk 150 ft (QC): 6 Walking 10ft on Uneven Surface: 5 1 Step (curb) (QC): 5 4 Steps (QC): 4 12 Steps (QC): 10 Picking up an Object (QC): 3 Wheel 50 feet with 2 turns (QC: 6 Wheel 150 feet: 6 PT Plan Problem List Problem List: Activity Tolerance, Functional Strength, Safety, Balance, Gait, Transfer, Bed Mobility, ROM Treatment/Plan Treatment Plan: Continue Plan of Care Treatment Plan: Bed Mobility, Education, Functional Activity [place], Functional Strength, Group Therapy, Gait, Safety, Therapeutic Exercise, Transfers Treatment Duration: Apr 28, 2020 Frequency: At least 5 of 7 days/Wk (IRF) Estimated Hrs Per Day: 1.5 hours per day Patient and/or Family Agrees t: Yes Safety Risks/Education Patient Education: Transfer Techniques, Correct Positioning, W/C Management, Safety Issues Teaching Recipient: Patient Teaching Methods: Demonstration, Discussion Response to Teaching: Reinforcement Needed Time/GCodes Time In: 1130 Time Out: 1200 Total Billed Treatment Time: 30 Total Billed Treatment 1 visit NM 15' FA 15' RAFFAELE SANTOS PT Apr 13, 2020 12:54
[2020-04-13] MEDS ORDERED: CLOPIDOGREL 75 MG (PLAVIX) TABLET PO NR (13:00)
--- NOTE | 2020-04-13 13:00 | Occupational Ther Daily Note ---
OT Current Status-Daily Note Subjective Pt was in bed. Pt no c/o pain. pt agreed to therapy. Pt stated that he was tired and ready for a nap. Mental Status/Objective Patient Orientation: Person, Place, Time, Situation Attachments: IV, Other-See Comments (life vest ) ADL-Treatment Pt was in bed. Pt agreed to wash face, clean up. Pt was fatigue used wheelchair to propel to bathroom. Pt used wash cloth to clean face, brushed hair independently. Pt propelled to therapy gym with assistance on steering. Pt completed therapy bike for 15 min with minimal resistance to increase B UE strength and activity tolerance for daily functional tasks, B UE shaky half way through. Pt demonstrated 3 UE exercise with 2 lb. weights completing 2 sets 10 reps with rest breaks. Initiated Co-treated ([id number]) with PT due pt's decreased activity tolerance and mobility. Pt completed balloon activity working on B UE ROM, eye and hand coordination while sitting to work on balance. Pt propelled back to room. Pt stated he wanted in bed. Pt lying in bed after session, call light/phone in reach. All needs met. Therapy Code Descriptions/Definitions Functional [place] Measure: 0=Not Assessed/NA 4=Minimal Assistance 1=Total Assistance 5=Supervision or Setup 2=Maximal Assistance 6=Modified [place] 3=Moderate Assistance 7=Complete IndependenceSCALE: Activities may be completed with or without assistive devices. 8-Semvagmsev-qlkxdli completes the activity by him/herself with no assistance from a helper. 5-Set-up or Clean-up Assistance-helper sets up or cleans up; patient completes activity. [place] assists only prior to or following the activity. 4-Supervision or Touching Assistance-helper provides verbal cues and/or touching/steadying and/or contact guard assistance as patient completes activity. Assistance may be provided throughout the activity or intermittently. 3-Partial/Moderate Assistance-helper does LESS THAN HALF the effort. [place] lifts, holds or supports trunk or limbs, but provides less than half the effort. 2-Substantial/Maximal Assistance-helper does MORE THAN HALF the effort. [place] lifts or holds trunk or limbs and provides more than half the effort. 5-Ekvznrmfj-spxzkb does ALL the effort. Patient does none of the effort to complete the activity. Or, the assistance of 2 or more helpers is required for the patient to complete the activity. If activity was not attempted, code reason: 7-Patient Refused. 9-Not Applicable-not attempted and the patient did not perform the activity before the current illness, exacerbation or injury. 10-Not Attempted due to Environmental Limitations-(lack of equipment, weather restraints, etc.). 88-Not Attempted due to Medical Conditions or Safety Concerns. Oral Hygiene (QC): 7 OT Short Term Goals Short Term Goals Time Frame: Apr 21, 2020 Eatin Oral hygiene: 6 Toileting hygiene: 3 Shower/bathe self: 3 Upper body dressin Lower body dressin Putting on/taking off footwear: 6 OT Director Home Goals Prison Goals Time Frame: Apr 28, 2020 Eating (QC): 6 Oral Hygiene (QC): 6 Toileting Hygiene (QC): 6 Shower/Bathe Self (QC): 6 Upper Body Dressing (QC): 6 Lower Body Dressing (QC): 6 On/Off Footwear (QC): 6 Additional Goals: 1-Demonstrate ADL Tasks, 2-Verbalize Understanding, 3- ImproveStrength/[place] 1=Demonstrate adherence to instructed precautions during ADL tasks. 2=Patient will verbalize/demonstrate understanding of assistive devices/modifications for ADL. 3=Patient will improve strength/tolerance for activity to enable patient to perform ADL's. OT Education/Plan Problem List/Assessment Assessment: Decreased Activ Tolerance, Decreased UE Strength, Impaired Coordination, Impaired Funct Balance Discharge Recommendations Plan/Recommendations: Continue POC Treatment Plan/Plan of Care Patient would benefit from OT for education, treatment and training to promote independence in ADL's, mobility, safety and/or upper extremity function for ADL's. Plan of Care: ADL Retraining, Caregiver Training, Concurrent Therapy, Functional Mobility, Group Exercise/Act as Ind, UE Funct Exercise/Act, UE Neuromus Re-Ed/Coord, W/C Management Training Treatment Duration: Apr 28, 2020 Frequency: At least 5 of 7 days/Wk (IRF) Estimated Hrs Per Day: 1.5 hours per day Agreement: Yes Rehab Potential: Fair Time/GCodes Start Time: 10:30 Stop Time: 12:00 Total Time Billed (hr/min): 90 Billed Treatment Time 1 visit- 1 ADL (15) 5 EX (75) Co- treatment with PT (30 mins/[id number]), individual [id number]/60 min LYLY PHILLIPS Apr 13, 2020 13:00
--- NOTE | 2020-04-13 14:00 | Progress Note ---
Subjective Date Seen by a Provider: Apr 13, 2020 Time Seen by a Provider: 14:00 Subjective/Events-last exam doing a little better. able to tolerate roughly 33% of tray. no regurgi tation/vomiting. Objective Exam Vital Signs Date Time Temp Pulse Resp B/P (MAP) Pulse Ox O2 Delivery O2 Flow Rate FiO2 04/13/20 09:59 Room Air 04/13/20 09:02 61 110/57 (74) 04/13/20 06:10 37.2 63 20 102/55 (71) 95 Room Air 04/12/20 20:30 96 Room Air 04/12/20 16:05 36.4 58 16 120/58 (78) 96 Room Air I & O 04/13/20 07:00 Intake Total 680 ml Balance 680 ml Capillary Refill : Less Than 3 Seconds General Appearance: No Apparent Distress HEENT: PERRL/EOMI Neck: Full Range of Motion Respiratory: Chest Non Tender, Lungs Clear Cardiovascular: Regular Rate, Rhythm Gastrointestinal: normal bowel sounds, non tender, soft Extremity: Normal Capillary Refill Neurologic/Psychiatric: Alert Skin: Normal Color Lymphatic: No Adenopathy Results Lab Laboratory Tests 04/13/20 05:20: Sodium Level 126L, Potassium Level 5.1H, Chloride Level 94L, Carbon Dioxide Level 20L, Anion Gap 12, Blood Urea Nitrogen 18, Creatinine 1.42H, Estimat Gl omerular Filtration Rate 48, BUN/Creatinine Ratio 13, Glucose Level 102, Calcium Level 8.9 04/13/20 10:39: Potassium Level 5.0 Microbiology 04/11/20 MRSA Screen - Final, Complete MRSA not isolated 04/10/20 Urine Culture - Final, Complete 3 or more isolates Assessment/Plan Assessment/Plan Assess & Plan/Chief Complaint GERD, dysphagia s/p EGD with dilatation. mild distal esophageal stricture and gastroparesis. continue diet as tolerated. continue trial of reglan. Clinical Quality Measures DVT/VTE Risk/Contraindication: Risk Factor Score Per Nursin RFS Level Per Nursing on Admit: 4+=Very High KADEN SCOTT MD Apr 13, 2020 14:00
[2020-04-13 16:12] VITALS: BP 106/59
--- NOTE | 2020-04-13 19:15 | NUR ---
bedside report received from ROXANNA ODONNELL, assume care of pt
--- NOTE | 2020-04-13 20:00 | NUR ---
back to bed with 2 people assist & walker does not follow instruction well, wanted to sit before fully reaching the side of bed
[2020-04-13 21:15] VITALS: BP 125/67
[2020-04-13] MEDS: MELATONIN 3 MG TABLET PO PRN (21:19)
[2020-04-13] MEDS: ASPIRIN E.C. 81 MG (ECOTRIN) TAB PO SCH (21:19)
--- NOTE | 2020-04-13 21:19 | NUR ---
pt took Senokot but refused Colace & miralax, given melatonin 3mg
[2020-04-14] MEDS: METOCLOPRAMIDE INJ 10 MG/2 ML (REGLAN) IVP SCH ×4 (00:01→18:55)
[2020-04-14] MEDS: ISOSORBIDE MONONITRATE 60 MG (IMDUR) TAB PO SCH (03:39)
[2020-04-14] MEDS: ACETAMINOPHEN 500 MG TAB (TYLENOL) PO PRN (03:39)
[2020-04-14 05:13] LABS: CALCIUM 8.7 MG/DL (8.5-10.1)
[2020-04-14 05:17] LABS: CREATININE SERUM 1.56 MG/DL (0.60-1.30)
[2020-04-14 06:00] VITALS: BP 118/59
[2020-04-14] MEDS: MULTIVIT W/MINERALS TAB (THERAGRAN M) PO SCH (06:23)
--- NOTE | 2020-04-14 06:23 | PM&R Progress Note ---
Subjective HPI/CC On Admission Date Seen by Provider: Apr 14, 2020 Time Seen by Provider: 09:00 Subjective/Events-last exam 04/14/20: Pt doing pretty well but still very declined Fluid restriction maintained and bowels will need more laxative He really needs to go to a assisted and he really appears to be a CHF hospice candidate 04/13/20: Sodium level 126 Gastroparesis was found on EGD so started on Reglan IV Q6hrs Dilated his esophagus also Labs remain stable 04/12/20: Sodium level 127 Hgb 10.4 EGD today NPO for now but he is hungry Fluid restriction and sodium tablets improving sodium level at 127 04/11/20: EGD in morning Nausea and vomiting continues daily Reglan given with good results BM x 2 today O2 maintained 04/10/20: Emesis today as he does a lot at home Sodium level is 124 Salt tablets started along with fluid restriction No BM for several days 04/09/20: Very debilitated Tires out easily Lifevest maintained No BM yesterday Wants to know his blood type and since he appears to be very pale and hgb is low will type and screen to prepare for transfusion if needed BNP is very elevated Stopping IVF Had N/V and given Reglan Patient has severe weakness Frequent breaks required Very debilitated Urine is concentrated so will start gentle IVF Dyspnea is severe Prognosis guarded Very debilitated Checked meds and labs Conferred with RN Reviewed therapy notes Review of Systems General: Fatigue Pulmonary: Dyspnea, Cough Objective Exam Vital Signs Vital Signs Date Time Temp Pulse Resp B/P (MAP) Pulse Ox O2 Delivery O2 Flow Rate FiO2 04/14/20 18:00 36.1 61 18 121/57 (78) 96 Room Air Capillary Refill : Less Than 3 Seconds General Appearance: No Apparent Distress, WD/WN, Chronically ill HEENT: PERRL/EOMI, Normal ENT Inspection, Pharynx Normal Neck: Full Range of Motion, Normal Inspection, Non Tender, Supple, Carotid Bruit Respiratory: Chest Non Tender, Lungs Clear, No Accessory Muscle Use, No Respiratory Distress, Decreased Breath Sounds Cardiovascular: Regular Rate, Rhythm, No Edema, No Gallop, No JVD, No Murmur, Normal Peripheral Pulses Gastrointestinal: Normal Bowel Sounds, No Organomegaly, No Pulsatile Mass, Non Tender, Soft Back: Normal Inspection, No CVA Tenderness, No Vertebral Tenderness Extremity: Normal Capillary Refill, Normal Inspection, Normal Range of Motion, Non Tender, No Calf Tenderness, No Pedal Edema Neurologic/Psychiatric: Alert, Oriented x3, No Motor/Sensory Deficits, associate professor of musicology II- XII Norm as Tested, Abnormal Gait, Depressed Affect, Motor Weakness (generalized all extremities) Skin: Normal Color, Warm/Dry Lymphatic: No Adenopathy Results/Procedures Lab Laboratory Tests 04/14/20 04:35 Patient resulted labs reviewed. FIM Transfers Therapy Code Descriptions/Definitions Functional [place] Measure: 0=Not Assessed/NA 4=Minimal Assistance 1=Total Assistance 5=Supervision or Setup 2=Maximal Assistance 6=Modified [place] 3=Moderate Assistance 7=Complete IndependenceSCALE: Activities may be completed with or without assistive devices. 2-Ilzdpmfjya-heezyva completes the activity by him/herself with no assistance from a helper. 5-Set-up or Clean-up Assistance-helper sets up or cleans up; patient completes activity. [place] assists only prior to or following the activity. 4-Supervision or Touching Assistance-helper provides verbal cues and/or touching/steadying and/or contact guard assistance as patient completes activity. Assistance may be provided throughout the activity or intermittently. 3-Partial/Moderate Assistance-helper does LESS THAN HALF the effort. [place] lifts, holds or supports trunk or limbs, but provides less than half the effort. 2-Substantial/Maximal Assistance-helper does MORE THAN HALF the effort. [place] lifts or holds trunk or limbs and provides more than half the effort. 0-Cevbsagrc-mtnxyg does ALL the effort. Patient does none of the effort to complete the activity. Or, the assistance of 2 or more helpers is required for the patient to complete the activity. If activity was not attempted, code reason: 7-Patient Refused. 9-Not Applicable-not attempted and the patient did not perform the activity before the current illness, exacerbation or injury. 10-Not Attempted due to Environmental Limitations-(lack of equipment, weather restraints, etc.). 88-Not Attempted due to Medical Conditions or Safety Concerns. Roll Left to Right (QC): 4 Sit to Lying (QC): 3 Sit to Stand (QC): 3 Chair/Jqm-yp-Smvhr Xfer(QC): 3 Car Transfer (QC): 88 (Pt unable to safetly attempt this visit. Will attempt tomorrow. ) Gait Training Does the Patient Walk?: Yes Distance: 15'x2 Walk 10 feet (QC): 4 Walk 50 ft with 2 Turns(QC): 4 Walk 150 ft (QC): 88 Walking 10ft/uneven surface-QC: 88 Gait Persons Needed: 1 (plus w/c assist and IV assist) Gait Assistive Device: FWW Wheelchair Training Does the Pt Use a Wheelchair?: Yes Distance: 50 ft Wheel 50 ft with 2 turns (QC): 3 Wheel 150 ft (QC): 3 Type of Wheelchair: Manual Stair Training 1 Step (curb) (QC): 88 4 Steps (QC): 88 12 Steps (QC): 88 Balance Picking up an Object (QC): 88 ADL-Treatment Eating (QC): 6 Oral Hygiene (QC): 7 Bathing Location: L Arm, R Arm, L Upper Leg, R Upper Leg, Chest, Abdomen, P erineal Area Shower/Bathe Self (QC): 3 (mod A) Upper Body Dressing (QC): 5 Lower Body Dressing (QC): 3 On/Off Footwear (QC): 5 Toileting Hygiene (QC): 3 Toilet Transfer (QC): 3 Assessment/Plan Assessment and Plan Assess & Plan/Chief Complaint Assessment: Debility with myopathy CHF on lifevest HTN CRI HTN HLP Smoker ETOHism Hypoxia Hyponatremia COPD Plan: Monitor creatinine Cardiology consult Monitor pain IRF protocol 04/08/20: Very debilitated Work on stamina Maintain O2 IVF gentle for dehydration Monitor sodium level 04/09/20: Monitor sodium level Monitor creatinine Type and screen 04/10/20: Monitor emesis Monitor sodium level BM regimen 04/11/20: BM regimen successful O2 Monitor sodium level Very fragile and fatigued 04/12/20: Monitor Sodium EGD today Fluid restriction 04/13/20: Monitor sodium level Prognosis poor Likely will need assisted 04/14/20: Discuss dispo with family Prognosis poor (1) Debility (2) Acute on chronic kidney failure (3) Alcohol dependence, daily use Status: Acute (4) HTN (hypertension) Status: Acute (5) CAD (coronary artery disease) (6) Hypokalemia (7) Status post fall Status: Acute (8) STEMI (ST elevation myocardial infarction) Status: Acute (9) Hypomagnesemia (10) Multifocal PVCs Status: Acute (11) PAD (peripheral artery disease) (12) Weakness Status: Acute (13) Renal insufficiency Status: Acute (14) CHF (congestive heart failure) Status: Acute CODI HERCULES DO Apr 14, 2020 06:23
[2020-04-14] MEDS: OMEGA 3 (FISH OIL) 1000 MG CAP PO SCH ×2 (07:59→18:55)
[2020-04-14] MEDS: FAMOTIDINE 20 MG (PEPCID) TABLET PO SCH ×2 (07:59→21:25)
[2020-04-14] MEDS: MAGNESIUM OXIDE (MAG-OX)400 MG TAB PO SCH (07:59)
[2020-04-14] MEDS: FUROSEMIDE 20 MG (LASIX) TAB PO SCH (07:59)
[2020-04-14 08:00] VITALS: BP 109/55
[2020-04-14] MEDS: DOCUSATE SODIUM 100 MG (COLACE) CAP PO SCH ×2 (08:00→21:36)
[2020-04-14] MEDS: CLOPIDOGREL 75 MG (PLAVIX) TABLET PO SCH (08:00)
[2020-04-14] MEDS: SENNA W/DOCUSATE (SENOKOT S) TABLET PO SCH ×2 (08:00→21:24)
[2020-04-14] MEDS: THIAMINE 100 MG (VITAMIN B-1) TAB PO SCH (08:00)
[2020-04-14] MEDS: RANOLAZINE ER 500 MG TAB (RANEXA) PO SCH ×2 (08:00→21:24)
[2020-04-14] MEDS: FOLIC ACID 1 MG TAB PO SCH (08:00)
[2020-04-14] MEDS: meTOprolol TARTRATE 50 MG (LOPRESSOR) TAB PO SCH ×2 (08:00→21:24)
[2020-04-14] MEDS: SODIUM CHLORIDE 1 GM TABLET PO SCH ×2 (08:01→21:25)
[2020-04-14] MEDS: polyethylene glycoL POWDER 17 GM (MIRALAX) PACK PO SCH ×2 (08:02→21:36)
--- NOTE | 2020-04-14 08:50 | Cardiology Progress Note ---
Subjective Date Seen by Provider: Apr 14, 2020 Time Seen by Provider: 08:20 Subjective/Events-last exam Patient is with PT/OT. Denies any chest pain or dypsnea. Reports generalized weakness. States nausea is improved. Objective-Cardiology Exam Last Set of Vital Signs Vital Signs 04/14/20 04/14/20 06:00 09:00 Temp 36.5 Pulse 63 Resp 17 B/P (MAP) 118/59 (78) Pulse Ox 95 O2 Delivery Room Air Capillary Refill : Less Than 3 Seconds I&O Intake and Output 04/14/20 00:00 Intake Total 1000 ml Balance 1000 ml Intake Oral 1000 ml # Voids 5 Results Lab Laboratory Tests 04/14/20 04:35 A/P-Cardiology Admission Diagnosis Generalized weakness CHF CAD Acute on chronic renal insufficiency Assessment/Plan Generalized weakness of undetermined etiology, continue with PT/OT Chronic systolic and diastolic CHF. Echo of 02/19/20: LVEF 40-45%, dilated LA, mod to sev MR, AoV scl w/o stenosis, mod TR, PASP 35-40 mmHg. Echo of 03/18/20: LVEF 25-30%. Last echo 04/08/20: LVEF 30-35%, apical and anteroseptal akinesis, mod MR, mod TR, RVSP 26 mmHg - Life Vest in place Coronary artery disease with a history CABG with HUBBARD to LAD, saphenous VG to RCA, VG to diagonal artery, VG to first obtuse marginal artery, VG to second obtuse marginal artery in 1999. Mutiple subsequent PCIs. H/o RCA-SVG perforation on 11/28/18 at time of intervention for SVG occlusion by Dr Miranda. Last card cath on 11/29/18 (Dr Smith at [facility]): 40-50% LMCA, occluded LAD, patent LCX with occluded OMs, occluded RCA, patent HUBBARD-LAD, patent SVG-om, Patent SVG-RCA with patent distal stent (known to be Alp Xience 2.25x8 placed on 08/28/17). Maintained on ASA and Plavix Dysphasia with Nausea and vomiting and wgt loss, S/P endoscopy on 04-12-[address] Clemente showing gastroparesis, gastritis, esophageal stricture (ballooning performed the same day), hiatal hernia Hyponatremia/hyperkalemia of undetermined etiology; nausea and vomiting may be contributing. Mild chronic hyponatremia, probably related to chronic diuretic therapy, continue to monitor electrolytes. Acute renal insufficiency. Acute component likely related to volume depletion from vomiting, continue to monitor renal function. Hyperlipidemia being treated with statin therapy, continue to monitor. Diabetes mellitus, type II. Gastroesophageal reflux. Tobaccoism consisting of smoking cigars. Advised smoking cessation Carotid arterial disease, mild, per ultrasonography of June 2017, continue to monitor as outpatient. Patient was seen and evaluated with Niyah, examination performed, management plan was discussed, agree with the current scribed note, I made few changes to the note using Italic font Patient was seen at bedside, comfortably, denied any chest pain Reporting improvement in symptoms. Continue with current treatment. No changes are recommended Clinical Quality Measures DVT/VTE Risk/Contraindication: Risk Factor Score Per Nursin RFS Level Per Nursing on Admit: 4+=Very High NIYAH HOOPER Apr 14, 2020 08:50 HANS MIRANDA MD Apr 14, 2020 16:18
--- NOTE | 2020-04-14 08:57 | Physical Therapy Daily Note ---
PT Daily Note-Current Subjective Pt. in bed upon arrival. Agrees to Rx, explains that he used w/c at home prior to this hospitalization and seldom ambulates with FWW. c/o fatigue during Rx Pain Location: No Pain Reported Mental Status Patient Orientation: Person, Place, Time, Situation Attachments: Other-See Comments (halter monitor) Transfers SCALE: Activities may be completed with or without assistive devices. 3-Bthsruecgj-whqlolo completes the activity by him/herself with no assistance from a helper. 5-Set-up or Clean-up Assistance-helper sets up or cleans up; patient completes activity. [place] assists only prior to or following the activity. 4-Supervision or Touching Assistance-helper provides verbal cues and/or touching/steadying and/or contact guard assistance as patient completes activity. Assistance may be provided throughout the activity or intermittently. 3-Partial/Moderate Assistance-helper does LESS THAN HALF the effort. [place] lifts, holds or supports trunk or limbs, but provides less than half the effort. 2-Substantial/Maximal Assistance-helper does MORE THAN HALF the effort. [place] lifts or holds trunk or limbs and provides more than half the effort. 5-Xycmmlodf-vwstdc does ALL the effort. Patient does none of the effort to complete the activity. Or, the assistance of 2 or more helpers is required for the patient to complete the activity. If activity was not attempted, code reason: 7-Patient Refused. 9-Not Applicable-not attempted and the patient did not perform the activity before the current illness, exacerbation or injury. 10-Not Attempted due to Environmental Limitations-(lack of equipment, weather restraints, etc.). 88-Not Attempted due to Medical Conditions or Safety Concerns. Roll Left & Right (QC): 4 Sit to Lying (QC): 3 Lying to Sitting/Side of Bed(Q: 3 Sit to Stand (QC): 4 Chair/Qtx-qt-Nebdd Xfer(QC): 4 level of w/c seat raised which increased pts sit to stand indep. Much emphasis on sit to stand "nose over toes" and SPTs Weight Bearing Full Weight Bearing Full Weight Bearing Wheelchair Training Does the Pt Use a Wheelchair?: Yes Wheel 50 ft with 2 turns (QC): 4 Type of Wheelchair: Manual pt. is very slow and needs rest breaks, pt. needs near constant instruction for efficient use of w/c for turning and propelling, pt. does lock and unlock w/c indep Exercises Supine Ex: Bridging, Ankle pumps, Quad Set, Rolling, Heel Slides, Scooting, Hip abd/add Supine Reps: 15 Seated Therapy Exercises: Sit to stand Seated Reps: 6 Standing: Heel/toe raises, Marching, Side steps Standing Reps: 15 Assessment Current Status: Good Progress fatigues easily, TRFs conbt dependent but slowly improving PT Short Term Goals Short Term Goals Time Frame: Apr 14, 2020 Sit to lyin Lying to sitting on side of be: 4 Sit to stand: 4 Walk 150 feet: 4 Wheel 150 feet: 6 PT Usp Goals Usp Goals PT Usp Goals Time Frame: Apr 28, 2020 Roll Left & Right (QC): 6 Sit to Lying (QC): 6 Lying-Sitting on Side/Bed(QC): 6 Sit to Stand (QC): 6 Chair/Trn-kd-Dmzht Xfer(QC): 6 Toilet Transfer (QC): 6 Car Transfer (QC): 5 Does the Patient Walk: Yes Walk 10 feet (QC): 6 Walk 50ft with 2 Turns (QC): 6 Walk 150 ft (QC): 6 Walking 10ft on Uneven Surface: 5 1 Step (curb) (QC): 5 4 Steps (QC): 4 12 Steps (QC): 10 Picking up an Object (QC): 3 Wheel 50 feet with 2 turns (QC: 6 Wheel 150 feet: 6 PT Plan Treatment/Plan Treatment Plan: Continue Plan of Care Treatment Plan: Bed Mobility, Education, Functional Activity Davina, Functional Strength, Group Therapy, Gait, Safety, Therapeutic Exercise, Transfers Treatment Duration: Apr 28, 2020 Frequency: At least 5 of 7 days/Wk (IRF) Estimated Hrs Per Day: 1.5 hours per day Patient and/or Family Agrees t: Yes Safety Risks/Education Patient Education: Transfer Techniques, Correct Positioning, W/C Management, Disease Process, Safety Issues Teaching Recipient: Patient Teaching Methods: Demonstration, Discussion Response to Teaching: Verbalize Understanding, Return Demonstration, Reinforcement Needed Time/GCodes Time In: 800 Time Out: 900 Total Billed Treatment Time: 60 Total Billed Treatment 1,EX20m,FA25m,WC15m KELLY BURDEN OBSTETRIC ANAESTHETIST Apr 14, 2020 08:57
--- NOTE | 2020-04-14 11:52 | Occupational Ther Daily Note ---
OT Current Status-Daily Note Subjective Pt was in chair. Pt no c/o pain. Pt agreed to therapy. Mental Status/Objective Patient Orientation: Person, Place, Time, Situation Attachments: IV, Other-See Comments (life vest) ADL-Treatment Pt in recliner upon arrival. Pt agreed to taking shower. Pt attempted sit to stand with FWW, needed increased assistance into wheelchair with Mod A stated he was tired. Pt propelled into the bathroom, pulled to stand with grab bars Mod A getting into shower. Pt don/doff UE/LE clothing with Min A. Pt performed upper body washing with cues on getting soap out of container, wash cloth. Pt performed lower body washing using LH sponge to get lower legs and feet. Pt required assistance sit to stand then CGA while LEAL cleansed buttocks. Pt Min A getting shampoo onto hair, rinsing. Pt transferred from shower to wheelchair with Mod A, propelled over to sink to brush hair. Pt refused to complete oral hygiene. Pt had Min A to getting L leg threaded into underwear, pants. Pt used FWW, SBA while OT hiked underwear, pants over hips. Pt performed B UE medium theraband exercise 1 set 5 reps with skilled instruction to complete theraband exercise for correct technique and modification. Pt unable to remember exercise from previous session. Pt call light/phone in reach. All needs met. Therapy Code Descriptions/Definitions Functional [place] Measure: 0=Not Assessed/NA 4=Minimal Assistance 1=Total Assistance 5=Supervision or Setup 2=Maximal Assistance 6=Modified [place] 3=Moderate Assistance 7=Complete IndependenceSCALE: Activities may be completed with or without assistive devices. 0-Hrzlpnuoao-sbeccuh completes the activity by him/herself with no assistance from a helper. 5-Set-up or Clean-up Assistance-helper sets up or cleans up; patient completes activity. [place] assists only prior to or following the activity. 4-Supervision or Touching Assistance-helper provides verbal cues and/or touching/steadying and/or contact guard assistance as patient completes activity. Assistance may be provided throughout the activity or intermittently. 3-Partial/Moderate Assistance-helper does LESS THAN HALF the effort. [place] lifts, holds or supports trunk or limbs, but provides less than half the effort. 2-Substantial/Maximal Assistance-helper does MORE THAN HALF the effort. [place] lifts or holds trunk or limbs and provides more than half the effort. 9-Ywdbxtlrv-qocbjq does ALL the effort. Patient does none of the effort to complete the activity. Or, the assistance of 2 or more helpers is required for the patient to complete the activity. If activity was not attempted, code reason: 7-Patient Refused. 9-Not Applicable-not attempted and the patient did not perform the activity before the current illness, exacerbation or injury. 10-Not Attempted due to Environmental Limitations-(lack of equipment, weather restraints, etc.). 88-Not Attempted due to Medical Conditions or Safety Concerns. Oral Hygiene (QC): 7 Bathing Location: L Arm, R Arm, L Upper Leg, R Upper Leg, L Lower Leg (including foot), R Lower Leg (including foot), Chest, Abdomen, Perineal Area Shower/Bathe Self (QC): 4 Upper Body Dressing (QC): 3 Lower Body Dressing (QC): 3 On/Off Footwear: 3 (needed help with L foot ) OT Short Term Goals Short Term Goals Time Frame: Apr 21, 2020 Eatin Oral hygiene: 6 Toileting hygiene: 3 Shower/bathe self: 3 Upper body dressin Lower body dressin Putting on/taking off footwear: 6 OT Dorr Operator Goals Fdc Goals Time Frame: Apr 28, 2020 Eating (QC): 6 Oral Hygiene (QC): 6 Toileting Hygiene (QC): 6 Shower/Bathe Self (QC): 6 Upper Body Dressing (QC): 6 Lower Body Dressing (QC): 6 On/Off Footwear (QC): 6 Additional Goals: 1-Demonstrate ADL Tasks, 2-Verbalize Understanding, 3- ImproveStrength/Davina 1=Demonstrate adherence to instructed precautions during ADL tasks. 2=Patient will verbalize/demonstrate understanding of assistive devices/modifications for ADL. 3=Patient will improve strength/tolerance for activity to enable patient to perform ADL's. OT Education/Plan Problem List/Assessment Assessment: Decreased Activ Tolerance, Decreased UE Strength, Impaired Funct Balance, Impaired Self-Care Skills Discharge Recommendations Plan/Recommendations: Continue POC Treatment Plan/Plan of Care Patient would benefit from OT for education, treatment and training to promote independence in ADL's, mobility, safety and/or upper extremity function for ADL's. Plan of Care: ADL Retraining, Caregiver Training, Concurrent Therapy, Functional Mobility, Group Exercise/Act as Ind, UE Funct Exercise/Act, UE Neuromus Re-Ed/Coord, W/C Management Training Treatment Duration: Apr 28, 2020 Frequency: At least 5 of 7 days/Wk (IRF) Estimated Hrs Per Day: 1.5 hours per day Agreement: Yes Rehab Potential: Fair Time/GCodes Start Time: 10:30 Stop Time: 12:00 Total Time Billed (hr/min): 90 Billed Treatment Time 1 visit- ADL 5 (80min) , EX ( 10 mins) LYLY PHILLIPS Apr 14, 2020 11:52
--- NOTE | 2020-04-14 13:43 | Progress Note ---
Subjective Date Seen by a Provider: Apr 14, 2020 Time Seen by a Provider: 13:00 Subjective/Events-last exam doing ok. states able to tolerate liquids and some solids. able to take in approximately 33% of food tray. Objective Exam Vital Signs Date Time Temp Pulse Resp B/P (MAP) Pulse Ox O2 Delivery O2 Flow Rate FiO2 04/14/20 06:00 36.5 63 17 118/59 (78) 95 Room Air 04/13/20 21:22 Room Air 04/13/20 21:15 60 18 125/67 (86) 94 Room Air 04/13/20 17:36 Room Air 04/13/20 16:12 36.0 55 16 106/59 (75) 97 Room Air I & O 04/14/20 07:00 Intake Total 1060 ml Output Total 300 ml Balance 760 ml Capillary Refill : Less Than 3 Seconds General Appearance: No Apparent Distress HEENT: PERRL/EOMI Neck: Full Range of Motion Respiratory: Rhonci Cardiovascular: Regular Rate, Rhythm Gastrointestinal: normal bowel sounds, non tender, soft Extremity: Normal Capillary Refill Neurologic/Psychiatric: Alert, Oriented x3 Skin: Normal Color Lymphatic: No Adenopathy Results Lab Laboratory Tests 04/14/20 04:35: Sodium Level 127L, Potassium Level 5.0, Chloride Level 94L, Carbon Dioxide Level 23, Anion Gap 10, Blood Urea Nitrogen 22H, Creatinine 1.56H, Estimat Glomerular Filtration Rate 43, BUN/Creatinine Ratio 14, Glucose Level 101, Calcium Level 8.7 Microbiology 04/11/20 MRSA Screen - Final, Complete MRSA not isolated 04/10/20 Urine Culture - Final, Complete 3 or more isolates Assessment/Plan Assessment/Plan Assess & Plan/Chief Complaint GERD, dysphagia s/p EGD with dilatation. mild distal esophageal stricture and gastroparesis. continue diet as tolerated. continue trial of reglan. Clinical Quality Measures DVT/VTE Risk/Contraindication: Risk Factor Score Per Nursin RFS Level Per Nursing on Admit: 4+=Very High KADEN SCOTT MD Apr 14, 2020 13:43
--- NOTE | 2020-04-14 13:56 | Physical Therapy Daily Note ---
PT Daily Note-Current Subjective "Get out of here, I've had enough, I'm tired". Pt. agrees to bed exercises only. Emphasizes how much he wants to go home Pain Numeric Pain Scale: 4 Location: Right Location Body Site: Shoulder Pain Description: Ache Comment: c/o shoulder pain when reaching over head for rail Mental Status Patient Orientation: Person, Place, Time, Situation Attachments: Other-See Comments (defibb) Transfers SCALE: Activities may be completed with or without assistive devices. 4-Oxecjjugst-blwnaqi completes the activity by him/herself with no assistance from a helper. 5-Set-up or Clean-up Assistance-helper sets up or cleans up; patient completes activity. [place] assists only prior to or following the activity. 4-Supervision or Touching Assistance-helper provides verbal cues and/or touching/steadying and/or contact guard assistance as patient completes activity. Assistance may be provided throughout the activity or intermittently. 3-Partial/Moderate Assistance-helper does LESS THAN HALF the effort. [place] lifts, holds or supports trunk or limbs, but provides less than half the effort. 2-Substantial/Maximal Assistance-helper does MORE THAN HALF the effort. [place] lifts or holds trunk or limbs and provides more than half the effort. 6-Aknanmyag-nmwkkb does ALL the effort. Patient does none of the effort to complete the activity. Or, the assistance of 2 or more helpers is required for the patient to complete the activity. If activity was not attempted, code reason: 7-Patient Refused. 9-Not Applicable-not attempted and the patient did not perform the activity before the current illness, exacerbation or injury. 10-Not Attempted due to Environmental Limitations-(lack of equipment, weather restraints, etc.). 88-Not Attempted due to Medical Conditions or Safety Concerns. rolls left and right and pushes up in bed SBA Weight Bearing Full Weight Bearing Full Weight Bearing Exercises Supine Ex: Bridging, Ankle pumps, Quad Set, Rolling, Glut sets, Heel Slides, Short Arc Quads, Scooting, Straight leg raise (assisted), Hip abd/add Supine Reps: 10 (x2) Assessment Current Status: Fair Progress fatigued PT Short Term Goals Short Term Goals Time Frame: Apr 14, 2020 Sit to lyin Lying to sitting on side of be: 4 Sit to stand: 4 Walk 150 feet: 4 Wheel 150 feet: 6 PT Fdc Goals Air Valve Mechanic Goals PT Fdc Goals Time Frame: Apr 28, 2020 Roll Left & Right (QC): 6 Sit to Lying (QC): 6 Lying-Sitting on Side/Bed(QC): 6 Sit to Stand (QC): 6 Chair/Dwr-vu-[place] Xfer(QC): 6 Toilet Transfer (QC): 6 Car Transfer (QC): 5 Does the Patient Walk: Yes Walk 10 feet (QC): 6 Walk 50ft with 2 Turns (QC): 6 Walk 150 ft (QC): 6 Walking 10ft on Uneven Surface: 5 1 Step (curb) (QC): 5 4 Steps (QC): 4 12 Steps (QC): 10 Picking up an Object (QC): 3 Wheel 50 feet with 2 turns (QC: 6 Wheel 150 feet: 6 PT Plan Treatment/Plan Treatment Plan: Continue Plan of Care Treatment Plan: Bed Mobility, Education, Functional Activity Davina, Functional Strength, Group Therapy, Gait, Safety, Therapeutic Exercise, Transfers Treatment Duration: Apr 28, 2020 Frequency: At least 5 of 7 days/Wk (IRF) Estimated Hrs Per Day: 1.5 hours per day Patient and/or Family Agrees t: Yes Safety Risks/Education Patient Education: Correct Positioning, Disease Process Time/GCodes Time In: 1330 Time Out: 1400 Total Billed Treatment Time: 30 Total Billed Treatment 1,EX30m KELLY BURDEN PRINT LINE OPERATOR Apr 14, 2020 13:56
[2020-04-14 18:00] VITALS: BP 121/57
--- NOTE | 2020-04-14 19:19 | NUR ---
bedside report received from SHIRLEY ODONNELL, assume care of pt
[2020-04-14 21:20] VITALS: BP 125/67
[2020-04-14] MEDS: MELATONIN 3 MG TABLET PO PRN (21:24)
--- NOTE | 2020-04-14 21:24 | NUR ---
pt took Senokot but refused Colace & miralax, pt refuses left over dinner meal, also refuses ensure
[2020-04-14] MEDS: ASPIRIN E.C. 81 MG (ECOTRIN) TAB PO SCH (21:25)
[2020-04-15] MEDS: METOCLOPRAMIDE INJ 10 MG/2 ML (REGLAN) IVP SCH ×4 (00:11→17:41)
[2020-04-15] MEDS: ISOSORBIDE MONONITRATE 60 MG (IMDUR) TAB PO SCH (03:01)
[2020-04-15] MEDS: ACETAMINOPHEN 500 MG TAB (TYLENOL) PO PRN (03:01)
[2020-04-15 05:13] VITALS: BP 110/60
[2020-04-15] MEDS: MULTIVIT W/MINERALS TAB (THERAGRAN M) PO SCH (06:12)
--- NOTE | 2020-04-15 07:57 | Cardiology Progress Note ---
Subjective Date Seen by Provider: Apr 15, 2020 Time Seen by Provider: 07:55 Subjective/Events-last exam Patient is asleep in bed, easily awakens to answer questions. Denies any chest pain or dyspnea. Review of Systems General: No Chills, No Night Sweats, No Fatigue, No Malaise, No Appetite, No Other HEENT: No Head Aches, No Visual Changes, No Eye Pain, No Ear Pain, No Dysphasia , No Sinus Congestion, No Post Nasal Drip, No Sore Throat, No Other Pulmonary: No Dyspnea, No Cough, No Pleuritic Chest Pain, No Other Cardiovascular: No: Chest Pain, Palpitations, Orthopnea, Paroxysmal Noc. Dysp ev, Edema, Lt Headedness, Other Objective-Cardiology Exam Last Set of Vital Signs Vital Signs 04/15/20 04/15/20 05:13 09:00 Temp 36.2 Pulse 58 Resp 18 B/P (MAP) 110/60 (77) Pulse Ox 94 O2 Delivery Room Air Capillary Refill : Less Than 3 Seconds I&O Intake and Output 04/15/20 00:00 Intake Total 1280 ml Output Total 300 ml Balance 980 ml Intake Oral 1280 ml Output Urine Total 300 ml # Voids 3 # Bowel Movements 1 General: Alert, Oriented X3, Cooperative HEENT: Atraumatic, PERRLA Neck: Supple, No JVD, No Thyromegaly Lungs: Clear to Auscultation, Normal Air Movement Heart: Regular Rate, Normal S1, Normal S2, No Murmurs Abdomen: Normal Bowel Sounds, Soft, No Tenderness, No Hepatosplenomegaly, No Masses Extremities: No Clubbing, No Cyanosis, No Edema (trace edema BLE) Skin: No Rashes, No Significant Lesion Neuro: Normal Speech, Cranial Nerves 3-12 NL Psych/Mental Status: Mental Status NL, Mood NL A/P-Cardiology Admission Diagnosis Generalized weakness CHF CAD Acute on chronic renal insufficiency Assessment/Plan Generalized weakness of undetermined etiology, continue with PT/OT Chronic systolic and diastolic CHF. Echo of 02/19/20: LVEF 40-45%, dilated LA, mod to sev MR, AoV scl w/o stenosis, mod TR, PASP 35-40 mmHg. Echo of 03/18/20: LVEF 25-30%. Last echo 04/08/20: LVEF 30-35%, apical and anteroseptal akinesis, mod MR, mod TR, RVSP 26 mmHg - Life Vest in place Coronary artery disease with a history CABG with HUBBARD to LAD, saphenous VG to RCA, VG to diagonal artery, VG to first obtuse marginal artery, VG to second obtuse marginal artery in 1999. Mutiple subsequent PCIs. H/o RCA-SVG perforation on 11/28/18 at time of intervention for SVG occlusion by Dr Miranda. Last card cath on 11/29/18 (Dr Smith at [facility]): 40-50% LMCA, occluded LAD, patent LCX with occluded OMs, occluded RCA, patent HUBBARD-LAD, patent SVG-om, Patent SVG-RCA with patent distal stent (known to be Alp Xience 2.25x8 placed on 08/28/17). Maintained on ASA and Plavix Borderline hypotension, I will decrease beta audi, continue to monitor. Dysphasia with Nausea and vomiting and wgt loss, S/P endoscopy on 04-12-[address] Clemente showing gastroparesis, gastritis, esophageal stricture (ballooning performed the same day), hiatal hernia Hyponatremia/hyperkalemia of undetermined etiology; nausea and vomiting may be contributing. Mild chronic hyponatremia, probably related to chronic diuretic therapy, continue to monitor electrolytes. Acute renal insufficiency. Acute component likely related to volume depletion from vomiting, continue to monitor renal function. Hyperlipidemia being treated with statin therapy, continue to monitor. Diabetes mellitus, type II. Gastroesophageal reflux. Tobaccoism consisting of smoking cigars. Advised smoking cessation Carotid arterial disease, mild, per ultrasonography of June 2017, continue to monitor as outpatient. Patient was seen and evaluated with Niyah, examination performed, management plan was discussed, agree with the current scribed note, I made few changes to the note using Italic font Patient was seen at bedside, laying down comfortably, no new complaint Continue to monitor blood pressure at this point, I decreased isosorbide to 60 mg daily instead of 120 and monitor tolerance and response Clinical Quality Measures DVT/VTE Risk/Contraindication: Risk Factor Score Per Nursin RFS Level Per Nursing on Admit: 4+=Very High NIYAH HOOPER Apr 15, 2020 7:57 am HANS MIRANDA MD Apr 15, 2020 11:01 am
[2020-04-15 08:00] VITALS: BP 121/57
[2020-04-15] MEDS: MAGNESIUM OXIDE (MAG-OX)400 MG TAB PO SCH (08:57)
[2020-04-15] MEDS: OMEGA 3 (FISH OIL) 1000 MG CAP PO SCH ×2 (08:57→17:41)
[2020-04-15] MEDS: DOCUSATE SODIUM 100 MG (COLACE) CAP PO SCH ×2 (08:57→21:36)
[2020-04-15] MEDS: SENNA W/DOCUSATE (SENOKOT S) TABLET PO SCH ×2 (08:58→21:40)
[2020-04-15] MEDS: CLOPIDOGREL 75 MG (PLAVIX) TABLET PO SCH (08:59)
[2020-04-15] MEDS: FAMOTIDINE 20 MG (PEPCID) TABLET PO SCH ×2 (08:59→21:36)
[2020-04-15] MEDS: THIAMINE 100 MG (VITAMIN B-1) TAB PO SCH (08:59)
[2020-04-15] MEDS: FOLIC ACID 1 MG TAB PO SCH (09:00)
[2020-04-15] MEDS: SODIUM CHLORIDE 1 GM TABLET PO SCH ×2 (09:00→21:44)
[2020-04-15] MEDS: RANOLAZINE ER 500 MG TAB (RANEXA) PO SCH ×2 (09:00→21:36)
[2020-04-15] MEDS: polyethylene glycoL POWDER 17 GM (MIRALAX) PACK PO SCH ×2 (09:01→21:40)
--- NOTE | 2020-04-15 09:57 | Occupational Ther Daily Note ---
OT Current Status-Daily Note Subjective Pt was in wheelchair upon arrival. Pt co/ no pain. Pt agreed to therapy. Mental Status/Objective Patient Orientation: Person, Place, Time, Situation Attachments: IV ADL-Treatment First visit- Pt in wheelchair. Pt agreed to brush teeth, cleanse mouth after max encouragement. Pt propelled into bathroom, pt able to gather toothbrush, paste to cleans teeth, gums then filled denture cup with water and assistance to open denture packet and place in cup. Pt able to take out and put in dentures mouth. Pt was shaky showing B UE weakness when cleansing teeth. Pt propelled down hallway ~80 ft. to work on wheelchair mobility, B UE strength with multiple rest breaks due to fatigue. Pt propelled back to room to don compression socks on to reduce swelling LEAL completed. Pt took increased time to complete to complete all tasks due to multiple recovery breaks and slow movement. Pt stated he wanted back into bed, Mod A transfer from wheelchair to bed. Call light/phone in reach. All needs met. Second visit- Pt was in bed upon arrival. Pt agreed to B UE medium resistance theraband with skilled instruction to complete theraband exercise for correct technique and modification, pt remembered 4/5 exercises completing 2 sets of 5 reps. Pt took increased time to complete to complete all tasks due to multiple recovery breaks and slow movement. Doctor in room making rounds. After the rapy, nrsg and physician in room. Call light/phone in reach. All needs met Therapy Code Descriptions/Definitions Functional [place] Measure: 0=Not Assessed/NA 4=Minimal Assistance 1=Total Assistance 5=Supervision or Setup 2=Maximal Assistance 6=Modified [place] 3=Moderate Assistance 7=Complete IndependenceSCALE: Activities may be completed with or without assistive devices. 5-Havxmbybxx-woqntod completes the activity by him/herself with no assistance from a helper. 5-Set-up or Clean-up Assistance-helper sets up or cleans up; patient completes activity. [place] assists only prior to or following the activity. 4-Supervision or Touching Assistance-helper provides verbal cues and/or touching/steadying and/or contact guard assistance as patient completes activity. Assistance may be provided throughout the activity or intermittently. 3-Partial/Moderate Assistance-helper does LESS THAN HALF the effort. [place] lifts, holds or supports trunk or limbs, but provides less than half the effort. 2-Substantial/Maximal Assistance-helper does MORE THAN HALF the effort. [place] lifts or holds trunk or limbs and provides more than half the effort. 2-Tonrwwmfx-tqbawm does ALL the effort. Patient does none of the effort to complete the activity. Or, the assistance of 2 or more helpers is required for the patient to complete the activity. If activity was not attempted, code reason: 7-Patient Refused. 9-Not Applicable-not attempted and the patient did not perform the activity before the current illness, exacerbation or injury. 10-Not Attempted due to Environmental Limitations-(lack of equipment, weather restraints, etc.). 88-Not Attempted due to Medical Conditions or Safety Concerns. Oral Hygiene (QC): 6 OT Short Term Goals Short Term Goals Time Frame: Apr 21, 2020 Eatin Oral hygiene: 6 Toileting hygiene: 3 Shower/bathe self: 3 Upper body dressin Lower body dressin Putting on/taking off footwear: 6 OT Fci Goals Fci Goals Time Frame: Apr 28, 2020 Eating (QC): 6 Oral Hygiene (QC): 6 Toileting Hygiene (QC): 6 Shower/Bathe Self (QC): 6 Upper Body Dressing (QC): 6 Lower Body Dressing (QC): 6 On/Off Footwear (QC): 6 Additional Goals: 1-Demonstrate ADL Tasks, 2-Verbalize Understanding, 3- ImproveStrength/[place] 1=Demonstrate adherence to instructed precautions during ADL tasks. 2=Patient will verbalize/demonstrate understanding of assistive devices/modifications for ADL. 3=Patient will improve strength/tolerance for activity to enable patient to perform ADL's. OT Education/Plan Problem List/Assessment Assessment: Decreased Activ Tolerance, Decreased UE Strength, Impaired Funct Balance, Impaired Self-Care Skills Discharge Recommendations Plan/Recommendations: Continue POC Treatment Plan/Plan of Care Patient would benefit from OT for education, treatment and training to promote independence in ADL's, mobility, safety and/or upper extremity function for ADL's. Plan of Care: ADL Retraining, Caregiver Training, Concurrent Therapy, Functional Mobility, Group Exercise/Act as Ind, UE Funct Exercise/Act, UE Neuromus Re-Ed/Coord, W/C Management Training Treatment Duration: Apr 28, 2020 Frequency: At least 5 of 7 days/Wk (IRF) Estimated Hrs Per Day: 1.5 hours per day Agreement: Yes Rehab Potential: Fair Time/GCodes Start Time: 09:00 ([id number]) Stop Time: 12:00 ([id number]) Total Time Billed (hr/min): 90 Billed Treatment Time 2 visits- ADL 3 (40 mins), FA (20 mins) (09:00- 10:00), 2 EX (30 mins) (11:30-12:00) LYLY PHILLIPS Apr 15, 2020 09:57
[2020-04-15] MEDS: meTOprolol TARTRATE 50 MG (LOPRESSOR) TAB PO SCH ×2 (10:02→21:37)
--- NOTE | 2020-04-15 10:55 | Physical Therapy Daily Note ---
PT Daily Note-Current Subjective Agreeable to PT. Reports he slept well. Denies pain. Mental Status Patient Orientation: Person, Place, Time, Situation Transfers SCALE: Activities may be completed with or without assistive devices. 7-Ntcifgfmzs-mfcmhis completes the activity by him/herself with no assistance from a helper. 5-Set-up or Clean-up Assistance-helper sets up or cleans up; patient completes activity. [place] assists only prior to or following the activity. 4-Supervision or Touching Assistance-helper provides verbal cues and/or touching/steadying and/or contact guard assistance as patient completes activity. Assistance may be provided throughout the activity or intermittently. 3-Partial/Moderate Assistance-helper does LESS THAN HALF the effort. [place] lifts, holds or supports trunk or limbs, but provides less than half the effort. 2-Substantial/Maximal Assistance-helper does MORE THAN HALF the effort. [place] lifts or holds trunk or limbs and provides more than half the effort. 9-Dpgqszcbo-vwdmdq does ALL the effort. Patient does none of the effort to complete the activity. Or, the assistance of 2 or more helpers is required for the patient to complete the activity. If activity was not attempted, code reason: 7-Patient Refused. 9-Not Applicable-not attempted and the patient did not perform the activity before the current illness, exacerbation or injury. 10-Not Attempted due to Environmental Limitations-(lack of equipment, weather restraints, etc.). 88-Not Attempted due to Medical Conditions or Safety Concerns. Lying to Sitting/Side of Bed(Q: 3 (min assist to sit up EOB with skilled cues to sequence and initiate task.) Sit to Stand (QC): 3 (min assist and cues for task segmentation) Chair/Ure-rg-Ujevs Xfer(QC): 2 (SPT (dance style) with mod assist; pt unable to effectively take steps to transfer. ) Multiple sit to stand reps from EOB and from wheelchair. Min to CGA to stand. Cue to scoot forward, lean forward and push up. Able to stand approx 7 seconds at a time. Seated EOB, requires min to CGA to maintain upright posture, tends to melt backward without support due to poor trunk strength and engagement of core musculature. Weight Bearing Full Weight Bearing Full Weight Bearing Wheelchair Training Does the Pt Use a Wheelchair?: Yes Wheel 50 ft with 2 turns (QC): 3 (assist iwth turnring and cues to sequence. ) Pt performed wc mobility using U/LE with cues to initiate and use both. Cues for sequencing and cues to stay on task. Has difficulty with turning wheelchair and requires cues to effectively perform. Short distances only and he fatigues. Pt propelled his wc 50 ft, 20 ft and 25 ft. Exercises Seated Therapy Exercises: Ankle pumps, Long arc quads (2#), Hip flexion (2#), Hamstring Curls, Hip abd/add Seated Reps: 15 (broken into 3 sets of 5; fatigues with more reps than 5 at a time. ) Treatments Sit to terminologist // bars with attempts to initiate gait, but unable to take steps. Assessment LImited functional progress at this time. Pt unable to effectively weight shift and take a step to turn or advance. LE weakness persists and limits functional standing tolerance and mobility. WC mobility requires assist as well. Pt is pleasant and cooperative but very weak. In fact, poor trunk control seated EOB this date, required assist to maintain unsupported seated. Standing time very short before he starts to melt to a seated position and decreased activity tolerance with ther ex as well. PT Short Term Goals Short Term Goals Time Frame: Apr 14, 2020 Sit to lyin Lying to sitting on side of be: 4 Sit to stand: 4 Walk 150 feet: 4 Wheel 150 feet: 6 PT Detention Goals Detention Goals PT Detention Goals Time Frame: Apr 28, 2020 Roll Left & Right (QC): 6 Sit to Lying (QC): 6 Lying-Sitting on Side/Bed(QC): 6 Sit to Stand (QC): 6 Chair/Avj-gk-Bywgi Xfer(QC): 6 Toilet Transfer (QC): 6 Car Transfer (QC): 5 Does the Patient Walk: Yes Walk 10 feet (QC): 6 Walk 50ft with 2 Turns (QC): 6 Walk 150 ft (QC): 6 Walking 10ft on Uneven Surface: 5 1 Step (curb) (QC): 5 4 Steps (QC): 4 12 Steps (QC): 10 Picking up an Object (QC): 3 Wheel 50 feet with 2 turns (QC: 6 Wheel 150 feet: 6 PT Plan Problem List Problem List: Activity Tolerance, Functional Strength, Safety, Balance, Gait, Transfer, Bed Mobility Treatment/Plan Treatment Plan: Continue Plan of Care Treatment Plan: Bed Mobility, Education, Functional Activity [place], Functional Strength, Group Therapy, Gait, Safety, Therapeutic Exercise, Transfers Treatment Duration: Apr 28, 2020 Frequency: At least 5 of 7 days/Wk (IRF) Estimated Hrs Per Day: 1.5 hours per day Patient and/or Family Agrees t: Yes Safety Risks/Education Patient Education: Transfer Techniques, Safety Issues Teaching Recipient: Patient Teaching Methods: Demonstration, Discussion Response to Teaching: Reinforcement Needed Discharge Recommendations Therapy Discharge Recommendati: Post Acute PT Time/GCodes Time In: 800 Time Out: 900 Total Billed Treatment Time: 60 Total Billed Treatment visit FA 45 WC 15 LYLY BOYER PT Apr 15, 2020 10:55
--- NOTE | 2020-04-15 11:00 | NUR ---
DENIES NAUSEA, BUT POOR APPETITE. WILL DRINK GLUCERNA. FLUID RESTRICTION INCREASED TO 1400 CC SO THAT HE CAN DRINK MORE GLUCERNA. DENIES ANY PAIN AND STATES "FEELS GOOD".
--- NOTE | 2020-04-15 11:40 | PM&R Progress Note ---
Subjective HPI/CC On Admission Date Seen by Provider: Apr 15, 2020 Time Seen by Provider: 12:00 Subjective/Events-last exam 04/15/20: Pt doing pretty well Imdur will be changed to 9:00 in the morning from 3:00 Edema noted but it is stable Somewhat confused at times 04/14/20: Pt doing pretty well but still very declined Fluid restriction maintained and bowels will need more laxative He really needs to go to a intermediate and he really appears to be a CHF hospice candidate 04/13/20: Sodium level 126 Gastroparesis was found on EGD so started on Reglan IV Q6hrs Dilated his esophagus also Labs remain stable 04/12/20: Sodium level 127 Hgb 10.4 EGD today NPO for now but he is hungry Fluid restriction and sodium tablets improving sodium level at 127 04/11/20: EGD in morning Nausea and vomiting continues daily Reglan given with good results BM x 2 today O2 maintained 04/10/20: Emesis today as he does a lot at home Sodium level is 124 Salt tablets started along with fluid restriction No BM for several days 04/09/20: Very debilitated Tires out easily Lifevest maintained No BM yesterday Wants to know his blood type and since he appears to be very pale and hgb is low will type and screen to prepare for transfusion if needed BNP is very elevated Stopping IVF Had N/V and given Reglan Patient has severe weakness Frequent breaks required Very debilitated Urine is concentrated so will start gentle IVF Dyspnea is severe Prognosis guarded Very debilitated Checked meds and labs Conferred with RN Reviewed therapy notes Review of Systems General: Fatigue Objective Exam Vital Signs Vital Signs Date Time Temp Pulse Resp B/P (MAP) Pulse Ox O2 Delivery O2 Flow Rate FiO2 04/15/20 17:04 36.2 62 18 123/68 (86) 95 Room Air Capillary Refill : Less Than 3 Seconds General Appearance: No Apparent Distress, WD/WN, Chronically ill HEENT: PERRL/EOMI, Normal ENT Inspection, Pharynx Normal Neck: Full Range of Motion, Normal Inspection, Non Tender, Supple, Carotid Bruit Respiratory: Chest Non Tender, Lungs Clear, No Accessory Muscle Use, No Respiratory Distress, Decreased Breath Sounds Cardiovascular: Regular Rate, Rhythm, No Edema, No Gallop, No JVD, No Murmur, Normal Peripheral Pulses Gastrointestinal: Normal Bowel Sounds, No Organomegaly, No Pulsatile Mass, Non Tender, Soft Back: Normal Inspection, No CVA Tenderness, No Vertebral Tenderness Extremity: Normal Capillary Refill, Normal Inspection, Normal Range of Motion, Non Tender, No Calf Tenderness, No Pedal Edema Neurologic/Psychiatric: Alert, Oriented x3, No Motor/Sensory Deficits, client relations specialist II- XII Norm as Tested, Abnormal Gait, Depressed Affect, Motor Weakness (generalized all extremities) Skin: Normal Color, Warm/Dry Lymphatic: No Adenopathy Results/Procedures Lab Patient resulted labs reviewed. FIM Transfers Therapy Code Descriptions/Definitions Functional [place] Measure: 0=Not Assessed/NA 4=Minimal Assistance 1=Total Assistance 5=Supervision or Setup 2=Maximal Assistance 6=Modified [place] 3=Moderate Assistance 7=Complete IndependenceSCALE: Activities may be completed with or without assistive devices. 3-Lyvyvwkkza-pddiahh completes the activity by him/herself with no assistance from a helper. 5-Set-up or Clean-up Assistance-helper sets up or cleans up; patient completes activity. [place] assists only prior to or following the activity. 4-Supervision or Touching Assistance-helper provides verbal cues and/or touching/steadying and/or contact guard assistance as patient completes activity. Assistance may be provided throughout the activity or intermittently. 3-Partial/Moderate Assistance-helper does LESS THAN HALF the effort. [place] lifts, holds or supports trunk or limbs, but provides less than half the effort. 2-Substantial/Maximal Assistance-helper does MORE THAN HALF the effort. [place] lifts or holds trunk or limbs and provides more than half the effort. 7-Agbautsxc-tmiiju does ALL the effort. Patient does none of the effort to complete the activity. Or, the assistance of 2 or more helpers is required for the patient to complete the activity. If activity was not attempted, code reason: 7-Patient Refused. 9-Not Applicable-not attempted and the patient did not perform the activity before the current illness, exacerbation or injury. 10-Not Attempted due to Environmental Limitations-(lack of equipment, weather restraints, etc.). 88-Not Attempted due to Medical Conditions or Safety Concerns. Roll Left to Right (QC): 4 Sit to Lying (QC): 3 Sit to Stand (QC): 3 (min assist and cues for task segmentation) Chair/Wmc-ti-Xtwhm Xfer(QC): 2 (SPT (dance style) with mod assist; pt unable to effectively take steps to transfer. ) Car Transfer (QC): 88 (Pt unable to safetly attempt this visit. Will attempt tomorrow. ) Gait Training Does the Patient Walk?: Yes Distance: 15'x2 Walk 10 feet (QC): 4 Walk 50 ft with 2 Turns(QC): 4 Walk 150 ft (QC): 88 Walking 10ft/uneven surface-QC: 88 Gait Persons Needed: 1 (plus w/c assist and IV assist) Gait Assistive Device: FWW Wheelchair Training Does the Pt Use a Wheelchair?: Yes Distance: 50 ft Wheel 50 ft with 2 turns (QC): 3 (assist iwth turnring and cues to sequence. ) Wheel 150 ft (QC): 3 Type of Wheelchair: Manual Stair Training 1 Step (curb) (QC): 88 4 Steps (QC): 88 12 Steps (QC): 88 Balance Picking up an Object (QC): 88 ADL-Treatment Eating (QC): 6 Oral Hygiene (QC): 6 Bathing Location: L Arm, R Arm, L Upper Leg, R Upper Leg, L Lower Leg (including foot), R Lower Leg (including foot), Chest, Abdomen, Perineal Area Shower/Bathe Self (QC): 4 Upper Body Dressing (QC): 3 Lower Body Dressing (QC): 3 On/Off Footwear (QC): 3 (needed help with L foot ) Toileting Hygiene (QC): 3 Toilet Transfer (QC): 3 Assessment/Plan Assessment and Plan Assess & Plan/Chief Complaint Assessment: Debility with myopathy CHF on lifevest HTN CRI HTN HLP Smoker ETOHism Hypoxia Hyponatremia COPD Plan: Monitor creatinine Cardiology consult Monitor pain IRF protocol 04/08/20: Very debilitated Work on stamina Maintain O2 IVF gentle for dehydration Monitor sodium level 04/09/20: Monitor sodium level Monitor creatinine Type and screen 04/10/20: Monitor emesis Monitor sodium level BM regimen 04/11/20: BM regimen successful O2 Monitor sodium level Very fragile and fatigued 04/12/20: Monitor Sodium EGD today Fluid restriction 04/13/20: Monitor sodium level Prognosis poor Likely will need intermediate 04/14/20: Discuss dispo with family Prognosis poor 04/15/20: Supportive care O2 maintained Fluid restriction (1) Debility (2) Acute on chronic kidney failure (3) Alcohol dependence, daily use Status: Acute (4) HTN (hypertension) Status: Acute (5) CAD (coronary artery disease) (6) Hypokalemia (7) Status post fall Status: Acute (8) STEMI (ST elevation myocardial infarction) Status: Acute (9) Hypomagnesemia (10) Multifocal PVCs Status: Acute (11) PAD (peripheral artery disease) (12) Weakness Status: Acute (13) Renal insufficiency Status: Acute (14) CHF (congestive heart failure) Status: Acute CODI HERCULES DO Apr 15, 2020 11:40
--- NOTE | 2020-04-15 14:40 | NUR ---
"RD ASSESSMENT PMHx: DM; CAD; HTN; COPD PT INTERACTION: Pt was awake and pleasant during nutrition follow-up. Pt states he has been eating a little better since last assessment. Note avg PO intake <25% x4d, per chart review. Pt states no issues with nausea, vomiting, constipation, or diarrhea since last assessment. Note last BM was 04/14, and pt currently on bowel regimen of colace BID; senna BID; and miralax BID, per chart review. ABNORMAL NUTRITION-RELATED LAB VALUES LOW: Na 127; Cl 94; HIGH: BUN 22; cr 1.56 Est. kcal needs: 1600 kcal | 20 kcal/kg Est. Pro needs: 64 g Pro | 0.8 g Pro/kg PES STATEMENT: Inadequate oral intake (NI-2.1) related to loss of appetite as evidenced by pt interview | avg PO intake <25% x4d INTERVENTION: Continue with current diet order of Regular diet. Will contact dietary staff abour removal of tea beverage from trays to decrease fluid intake. Pt may benefit from consistent CHO restriction if blood glucose levels become elevated. Continue with current supplementation order of Glucerna (vary) with meals TID, for increased kcal intake. Provides 220 kcal and 10 g Pro per serving. Will continue to follow and reassess as pt needs, intake, and status change. Zachary Woods, MS RD LD"
--- NOTE | 2020-04-15 14:53 | Physical Therapy Daily Note ---
PT Daily Note-Current Subjective Pt laying Supine in bed upon arrival. Pt agrees to PT. Pain Location: No Pain Reported Mental Status Patient Orientation: Person, Place, Situation Transfers SCALE: Activities may be completed with or without assistive devices. 1-Xsysfzclfo-gbornaj completes the activity by him/herself with no assistance from a helper. 5-Set-up or Clean-up Assistance-helper sets up or cleans up; patient completes activity. [place] assists only prior to or following the activity. 4-Supervision or Touching Assistance-helper provides verbal cues and/or touching/steadying and/or contact guard assistance as patient completes activity. Assistance may be provided throughout the activity or intermittently. 3-Partial/Moderate Assistance-helper does LESS THAN HALF the effort. [place] lifts, holds or supports trunk or limbs, but provides less than half the effort. 2-Substantial/Maximal Assistance-helper does MORE THAN HALF the effort. [place] lifts or holds trunk or limbs and provides more than half the effort. 2-Gtiabgtzw-kfkvgw does ALL the effort. Patient does none of the effort to complete the activity. Or, the assistance of 2 or more helpers is required for the patient to complete the activity. If activity was not attempted, code reason: 7-Patient Refused. 9-Not Applicable-not attempted and the patient did not perform the activity before the current illness, exacerbation or injury. 10-Not Attempted due to Environmental Limitations-(lack of equipment, weather restraints, etc.). 88-Not Attempted due to Medical Conditions or Safety Concerns. Sit to Lying (QC): 3 Sit to Stand (QC): 2 Chair/Wkk-js-Dycne Xfer(QC): 2 Weight Bearing Full Weight Bearing Full Weight Bearing Exercises Supine Ex: Ankle pumps, Quad Set, Glut sets, Heel Slides, Straight leg raise, Hip abd/add Supine Reps: 10 Treatments Pt completes Supine Ex with RB as needed then asked to TF to recliner so bed sheet could be changed, recent spill of water. TF to EOB then TF to recliner x2 due to B LE "melting" while standing. Assessment Current Status: Fair Progress Pt fatigues very easily. PT Short Term Goals Short Term Goals Time Frame: Apr 14, 2020 Sit to lyin Lying to sitting on side of be: 4 Sit to stand: 4 Walk 150 feet: 4 Wheel 150 feet: 6 PT Senior Care Goals Senior Tax Analyst Goals PT Senior Tax Analyst Goals Time Frame: Apr 28, 2020 Roll Left & Right (QC): 6 Sit to Lying (QC): 6 Lying-Sitting on Side/Bed(QC): 6 Sit to Stand (QC): 6 Chair/Rra-lv-Ozfrx Xfer(QC): 6 Toilet Transfer (QC): 6 Car Transfer (QC): 5 Does the Patient Walk: Yes Walk 10 feet (QC): 6 Walk 50ft with 2 Turns (QC): 6 Walk 150 ft (QC): 6 Walking 10ft on Uneven Surface: 5 1 Step (curb) (QC): 5 4 Steps (QC): 4 12 Steps (QC): 10 Picking up an Object (QC): 3 Wheel 50 feet with 2 turns (QC: 6 Wheel 150 feet: 6 PT Plan Problem List Problem List: Activity Tolerance, Functional Strength, Safety, Balance, Gait, Transfer Treatment/Plan Treatment Plan: Continue Plan of Care Treatment Plan: Bed Mobility, Education, Functional Activity [place], Functional Strength, Group Therapy, Gait, Safety, Therapeutic Exercise, Transfers Treatment Duration: Apr 28, 2020 Frequency: At least 5 of 7 days/Wk (IRF) Estimated Hrs Per Day: 1.5 hours per day Patient and/or Family Agrees t: Yes Safety Risks/Education Patient Education: Transfer Techniques, Correct Positioning, Safety Issues Teaching Recipient: Patient Teaching Methods: Discussion Response to Teaching: Verbalize Understanding Time/GCodes Time In: 1330 Time Out: 1400 Total Billed Treatment Time: 30 Total Billed Treatment 1, EX (20m) & FA (10m) RADHA RENTERIA PTA Apr 15, 2020 14:53
[2020-04-15] MEDS ORDERED: CATHETER FLUSH 10 ML SYR IV PRN (16:15)
[2020-04-15 17:04] VITALS: BP 123/68
--- NOTE | 2020-04-15 17:10 | NUR ---
CM/SS PATIENT CARE CONFERENCE Visited with patient who was awake and alert, reviewed Summary. Left for patient to read at his leisure, he signed and returned to Unit RN indicating no questions. Charted. Contacted spouse Keira by phone, both understand his target discharge is April 20. Barriers to patient returning home remain that fatigue and weakness are limiting overall progress and consistency for transfers and participation in ADLs. Additionally, regarding in-home assistance, if patient requires help with all transfers this would require several hours of private pay staff for just intermittent transferring. Patient is using wheelchair here at his own pace, he does have one at home and can use it there with the exception of accessing bathroom. Keira reports he would have to take about 3 steps to use toilet. Patient continues to express his goal is to return home and he is not in agreement to a community retirement environment. Encouraged patient to participate with therapies to his best ability. He indicated that his son's boss told him he could leave work anytime he needed to help his dad, administrative underwriter shared with patient his son likely could not continue that indefinitely. Keira stated that son Hector will not be available after end march because he works at [employer] and they will be in their busy season. Director Gift advised Keira to have a tiffany discussion with patient about that issue. Lengthy phone discussion with Keira. Her goal is for patient to return home, she does understand if this failed he could be admitted to a SNF from home. She has received the Caregiver's List administrative underwriter provided and is reviewing. In summary, she will call agencies to explore caregivers and rates. She will speak with her grandson who is a [employer] student about getting "Grandpa" up in the mornings and to bed at night. Their son Yohannes in [place] offered to come home to help for a couple of weeks and his has been disabled in a wheelchair for 21 years. Yohannes understands how to provide care and how to motivate. [facility] will be reinstated for RN, PT OT. Keira will explore all her resources and update administrative underwriter.
--- NOTE | 2020-04-15 18:25 | NUR ---
GETS WEAKER DAY PROGRESSES AND NEEDS MORE ASSIST TO TRANSFER.
[2020-04-15 21:30] VITALS: BP 137/82
[2020-04-15] MEDS: ASPIRIN E.C. 81 MG (ECOTRIN) TAB PO SCH (21:37)
[2020-04-15] MEDS: CATHETER FLUSH 10 ML SYR IV SCH (21:40)
[2020-04-16] MEDS: METOCLOPRAMIDE INJ 10 MG/2 ML (REGLAN) IVP SCH ×4 (01:02→17:38)
[2020-04-16 06:00] VITALS: BP 132/66
--- NOTE | 2020-04-16 06:18 | NUR ---
patient lowered to ground with assist x 2 staff; chente rt and evangelista, director of cardiac cath lab. RT was in room and lab was drawing blood. patient requested to be transferred to chair. per evangelista and patient report.
--- NOTE | 2020-04-16 06:23 | NUR ---
CALLED TO ROOM BY RTROSEANNE. ENTERED ROOM AND PATIENT WAS SITTING ON FLOOR. SENIOR COGNOS DEVELOPER, BETZY AND ROSEANNE RT IN WITH PATIENT. PATIENT AND SENIOR COGNOS DEVELOPER REPORT ATTEMPT WITH RTROESANNE TO ASSIST PATIENT TO CHAIR PER PATIENT REQUEST. PATIENT UNABLE TO STAND ON HIS FEET, SO BETZY AND PATIENT REPORT BEING LOWERED TO THE GROUND. PATIENT STATES, "I HAVE ZERO INJURIES, THEY SAT ME DOWN." PATIENT LIFTED FROM SITTING TO BED, [id number]. PATIENT STATED HE WANT IN CHAIR. PATIENT IN BED AT THIS TIME. DR HERCULES NOTIFIED. VSS, BP 132/66, HR 65, SPO2 93%, PAIN 0. CONT TO MONITOR.
[2020-04-16] MEDS: CATHETER FLUSH 10 ML SYR IV SCH ×3 (06:27→21:56)
[2020-04-16] MEDS: MULTIVIT W/MINERALS TAB (THERAGRAN M) PO SCH (06:38)
[2020-04-16 07:04] LABS: BASOPHILS # (AUTO) 0.1 10^3/uL (0.0-0.1); BASOPHILS % (AUTO) 1 % (0-10); EOSINOPHILS # (AUTO) 0.3 10^3/uL (0.0-0.3); EOSINOPHILS % (AUTO) 3 % (0-10); HEMATOCRIT 31 % (40-54); HEMOGLOBIN 10.7 g/dL (13.3-17.7); LYMPHOCYTES # (AUTO) 0.9 10^3/uL (1.0-4.0); LYMPHOCYTES % (AUTO) 10 % (12-44); MEAN CORPUSCULAR HEMOGLOBIN 34 pg (25-34); MEAN CORPUSCULAR HGB CONC 34 g/dL (32-36); MEAN CORPUSCULAR VOLUME 98 fL (80-99); MEAN PLATELET VOLUME 9.1 fL (9.0-12.2); MONOCYTES # (AUTO) 0.9 10^3/uL (0.0-1.0); MONOCYTES % (AUTO) 9 % (0-12); NEUTROPHILS # (AUTO) 7.1 10^3/uL (1.8-7.8); NEUTROPHILS % (AUTO) 76 % (42-75); PLATELET COUNT 325 10^3/uL (130-400); WHITE BLOOD COUNT 9.3 10^3/uL (4.3-11.0)
[2020-04-16 07:25] LABS: ALBUMIN 3.1 GM/DL (3.2-4.5); BILIRUBIN,TOTAL 1.9 MG/DL (0.1-1.0); CALCIUM 9.1 MG/DL (8.5-10.1); CREATININE SERUM 1.64 MG/DL (0.60-1.30); POTASSIUM 5.5 MMOL/L (3.6-5.0); TOTAL PROTEIN 6.8 GM/DL (6.4-8.2)
[2020-04-16] MEDS: meTOprolol TARTRATE 50 MG (LOPRESSOR) TAB PO SCH ×2 (09:36→21:48)
[2020-04-16] MEDS: RANOLAZINE ER 500 MG TAB (RANEXA) PO SCH ×2 (09:37→21:48)
[2020-04-16] MEDS: FOLIC ACID 1 MG TAB PO SCH (09:37)
[2020-04-16] MEDS: FUROSEMIDE 20 MG (LASIX) TAB PO SCH (09:39)
[2020-04-16] MEDS: ISOSORBIDE MONONITRATE 60 MG (IMDUR) TAB PO SCH (09:39)
[2020-04-16] MEDS: THIAMINE 100 MG (VITAMIN B-1) TAB PO SCH (09:39)
[2020-04-16] MEDS: OMEGA 3 (FISH OIL) 1000 MG CAP PO SCH ×2 (09:39→17:30)
[2020-04-16] MEDS: CLOPIDOGREL 75 MG (PLAVIX) TABLET PO SCH (09:39)
[2020-04-16] MEDS: MAGNESIUM OXIDE (MAG-OX)400 MG TAB PO SCH (09:40)
[2020-04-16] MEDS: FAMOTIDINE 20 MG (PEPCID) TABLET PO SCH ×2 (09:40→21:47)
[2020-04-16] MEDS: SODIUM CHLORIDE 1 GM TABLET PO SCH ×2 (09:41→21:45)
[2020-04-16] MEDS: polyethylene glycoL POWDER 17 GM (MIRALAX) PACK PO SCH ×2 (09:41→21:45)
[2020-04-16] MEDS: SENNA W/DOCUSATE (SENOKOT S) TABLET PO SCH ×2 (09:41→21:48)
[2020-04-16] MEDS: DOCUSATE SODIUM 100 MG (COLACE) CAP PO SCH ×2 (09:41→21:48)
--- NOTE | 2020-04-16 09:58 | Occupational Ther Daily Note ---
OT Current Status-Daily Note Subjective Pt was in bed. Pt no c/o pain. Pt agreed to therapy. Mental Status/Objective Patient Orientation: Person, Place, Time, Situation Attachments: IV, Other-See Comments (life vest) ADL-Treatment Pt was in bed. Pt agreed to do sponge bath in recliner. Pt transferred to EOB sit to stand Mod A, SPT. Pt performed sponge bath with verbal cues on upper/lower body washing, LH sponge to get lower body and feet. Pt required assistance to cleanse buttocks due to fatigue. Pt had Max A threading uppe r/lower body clothing, placed compression socks to reduce selling in feet/ankles. Pt inconsistent with dressing due to fatigue. Nursing came in for medications. Pt in recliner with call light/phone in reach. All needs met. Therapy Code Descriptions/Definitions Functional [place] Measure: 0=Not Assessed/NA 4=Minimal Assistance 1=Total Assistance 5=Supervision or Setup 2=Maximal Assistance 6=Modified [place] 3=Moderate Assistance 7=Complete IndependenceSCALE: Activities may be completed with or without assistive devices. 3-Uyecaulcur-yudktfd completes the activity by him/herself with no assistance from a helper. 5-Set-up or Clean-up Assistance-helper sets up or cleans up; patient completes activity. Manvel assists only prior to or following the activity. 4-Supervision or Touching Assistance-helper provides verbal cues and/or touching/steadying and/or contact guard assistance as patient completes a ctivity. Assistance may be provided throughout the activity or intermittently. 3-Partial/Moderate Assistance-helper does LESS THAN HALF the effort. Manvel lifts, holds or supports trunk or limbs, but provides less than half the effort. 2-Substantial/Maximal Assistance-helper does MORE THAN HALF the effort. Manvel lifts or holds trunk or limbs and provides more than half the effort. 1-Ppbbmemqm-snmvgz does ALL the effort. Patient does none of the effort to complete the activity. Or, the assistance of 2 or more helpers is required for the patient to complete the activity. If activity was not attempted, code reason: 7-Patient Refused. 9-Not Applicable-not attempted and the patient did not perform the activity before the current illness, exacerbation or injury. 10-Not Attempted due to Environmental Limitations-(lack of equipment, weather restraints, etc.). 88-Not Attempted due to Medical Conditions or Safety Concerns. Bathing Location: L Arm, R Arm, L Upper Leg, R Upper Leg, L Lower Leg (including foot), R Lower Leg (including foot), Chest, Abdomen Shower/Bathe Self (QC): 3 Upper Body Dressing (QC): 2 Lower Body Dressing (QC): 2 On/Off Footwear: 2 OT Short Term Goals Short Term Goals Time Frame: Apr 21, 2020 Eatin Oral hygiene: 6 Toileting hygiene: 3 Shower/bathe self: 3 Upper body dressin Lower body dressin Putting on/taking off footwear: 6 OT Salt Maker Goals Salt Maker Goals Time Frame: Apr 28, 2020 Eating (QC): 6 Oral Hygiene (QC): 6 Toileting Hygiene (QC): 6 Shower/Bathe Self (QC): 6 Upper Body Dressing (QC): 6 Lower Body Dressing (QC): 6 On/Off Footwear (QC): 6 Additional Goals: 1-Demonstrate ADL Tasks, 2-Verbalize Understanding, 3- ImproveStrength/Davina 1=Demonstrate adherence to instructed precautions during ADL tasks. 2=Patient will verbalize/demonstrate understanding of assistive devices/modifications for ADL. 3=Patient will improve strength/tolerance for activity to enable patient to perform ADL's. OT Education/Plan Problem List/Assessment Assessment: Decreased Activ Tolerance, Decreased UE Strength, Impaired Funct Balance, Impaired Self-Care Skills Discharge Recommendations Plan/Recommendations: Continue POC Treatment Plan/Plan of Care Patient would benefit from OT for education, treatment and training to promote independence in ADL's, mobility, safety and/or upper extremity function for ADL's. Plan of Care: ADL Retraining, Caregiver Training, Concurrent Therapy, Functional Mobility, Group Exercise/Act as Ind, UE Funct Exercise/Act, UE Neuromus Re-Ed/Coord, W/C Management Training Treatment Duration: Apr 28, 2020 Frequency: At least 5 of 7 days/Wk (IRF) Estimated Hrs Per Day: 1.5 hours per day Agreement: Yes Rehab Potential: Fair Time/GCodes Start Time: 09:00 Stop Time: 10:00 Total Time Billed (hr/min): 60 Billed Treatment Time 1 visit- 4 ADL (60 mins) LYLY PHILLIPS Apr 16, 2020 09:58
--- NOTE | 2020-04-16 10:03 | PM&R Progress Note ---
Subjective HPI/CC On Admission Date Seen by Provider: Apr 16, 2020 Time Seen by Provider: 10:00 Subjective/Events-last exam 04/16/20: Pt doing pretty well Had a controlled fall with respiratory therapy and systems testing laboratory technician Potassium level 5.5 Sodium level 128 Swallowing better since EGD and dilatation 04/15/20: Pt doing pretty well Imdur will be changed to 9:00 in the morning from 3:00 Edema noted but it is stable Somewhat confused at times 04/14/20: Pt doing pretty well but still very declined Fluid restriction maintained and bowels will need more laxative He really needs to go to a mcc and he really appears to be a CHF hospice candidate 04/13/20: Sodium level 126 Gastroparesis was found on EGD so started on Reglan IV Q6hrs Dilated his esophagus also Labs remain stable 04/12/20: Sodium level 127 Hgb 10.4 EGD today NPO for now but he is hungry Fluid restriction and sodium tablets improving sodium level at 127 04/11/20: EGD in morning Nausea and vomiting continues daily Reglan given with good results BM x 2 today O2 maintained 04/10/20: Emesis today as he does a lot at home Sodium level is 124 Salt tablets started along with fluid restriction No BM for several days 04/09/20: Very debilitated Tires out easily Lifevest maintained No BM yesterday Wants to know his blood type and since he appears to be very pale and hgb is low will type and screen to prepare for transfusion if needed BNP is very elevated Stopping IVF Had N/V and given Reglan Patient has severe weakness Frequent breaks required Very debilitated Urine is concentrated so will start gentle IVF Dyspnea is severe Prognosis guarded Very debilitated Checked meds and labs Conferred with RN Reviewed therapy notes Review of Systems General: Fatigue, Malaise Pulmonary: Dyspnea Neurological: Weakness Objective Exam Vital Signs Vital Signs Date Time Temp Pulse Resp B/P (MAP) Pulse Ox O2 Delivery O2 Flow Rate FiO2 04/16/20 16:30 36.6 59 20 121/59 (79) 95 Room Air Capillary Refill : Less Than 3 Seconds General Appearance: No Apparent Distress, WD/WN, Chronically ill HEENT: PERRL/EOMI, Normal ENT Inspection, Pharynx Normal Neck: Full Range of Motion, Normal Inspection, Non Tender, Supple, Carotid Bruit Respiratory: Chest Non Tender, Lungs Clear, No Accessory Muscle Use, No Respiratory Distress, Decreased Breath Sounds Cardiovascular: Regular Rate, Rhythm, No Edema, No Gallop, No JVD, No Murmur, Normal Peripheral Pulses Gastrointestinal: Normal Bowel Sounds, No Organomegaly, No Pulsatile Mass, Non Tender, Soft Back: Normal Inspection, No CVA Tenderness, No Vertebral Tenderness Extremity: Normal Capillary Refill, Normal Inspection, Normal Range of Motion, Non Tender, No Calf Tenderness, No Pedal Edema Neurologic/Psychiatric: Alert, Oriented x3, No Motor/Sensory Deficits, health education specialist II- XII Norm as Tested, Abnormal Gait, Depressed Affect, Motor Weakness (generalized all extremities) Skin: Normal Color, Warm/Dry Lymphatic: No Adenopathy Results/Procedures Lab Laboratory Tests 04/16/20 06:22 Patient resulted labs reviewed. FIM Transfers Therapy Code Descriptions/Definitions Functional [place] Measure: 0=Not Assessed/NA 4=Minimal Assistance 1=Total Assistance 5=Supervision or Setup 2=Maximal Assistance 6=Modified [place] 3=Moderate Assistance 7=Complete IndependenceSCALE: Activities may be completed with or without assistive devices. 3-Clsrdzfueb-sbnuotq completes the activity by him/herself with no assistance from a helper. 5-Set-up or Clean-up Assistance-helper sets up or cleans up; patient completes activity. [place] assists only prior to or following the activity. 4-Supervision or Touching Assistance-helper provides verbal cues and/or touching/steadying and/or contact guard assistance as patient completes activity . Assistance may be provided throughout the activity or intermittently. 3-Partial/Moderate Assistance-helper does LESS THAN HALF the effort. [place] lifts, holds or supports trunk or limbs, but provides less than half the effort. 2-Substantial/Maximal Assistance-helper does MORE THAN HALF the effort. [place] lifts or holds trunk or limbs and provides more than half the effort. 3-Gyekeopgi-ctdfkg does ALL the effort. Patient does none of the effort to complete the activity. Or, the assistance of 2 or more helpers is required for the patient to complete the activity. If activity was not attempted, code reason: 7-Patient Refused. 9-Not Applicable-not attempted and the patient did not perform the activity before the current illness, exacerbation or injury. 10-Not Attempted due to Environmental Limitations-(lack of equipment, weather restraints, etc.). 88-Not Attempted due to Medical Conditions or Safety Concerns. Roll Left to Right (QC): 4 Sit to Lying (QC): 3 Sit to Stand (QC): 2 Chair/Lyd-ll-Tclxn Xfer(QC): 2 Car Transfer (QC): 88 (Pt unable to safetly attempt this visit. Will attempt tomorrow. ) Gait Training Does the Patient Walk?: Yes Distance: 15'x2 Walk 10 feet (QC): 4 Walk 50 ft with 2 Turns(QC): 4 Walk 150 ft (QC): 88 Walking 10ft/uneven surface-QC: 88 Gait Persons Needed: 1 (plus w/c assist and IV assist) Gait Assistive Device: FWW Wheelchair Training Does the Pt Use a Wheelchair?: Yes Distance: 50 ft Wheel 50 ft with 2 turns (QC): 3 (assist iwth turnring and cues to sequence. ) Wheel 150 ft (QC): 3 Type of Wheelchair: Manual Stair Training 1 Step (curb) (QC): 88 4 Steps (QC): 88 12 Steps (QC): 88 Balance Picking up an Object (QC): 88 ADL-Treatment Eating (QC): 6 Oral Hygiene (QC): 6 Bathing Location: L Arm, R Arm, L Upper Leg, R Upper Leg, L Lower Leg (including foot), R Lower Leg (including foot), Chest, Abdomen Shower/Bathe Self (QC): 3 Upper Body Dressing (QC): 2 Lower Body Dressing (QC): 2 On/Off Footwear (QC): 2 Toileting Hygiene (QC): 3 Toilet Transfer (QC): 3 Assessment/Plan Assessment and Plan Assess & Plan/Chief Complaint Assessment: Debility with myopathy CHF on lifevest HTN CRI HTN HLP Smoker ETOHism Hypoxia Hyponatremia COPD Plan: Monitor creatinine Cardiology consult Monitor pain IRF protocol 04/08/20: Very debilitated Work on stamina Maintain O2 IVF gentle for dehydration Monitor sodium level 04/09/20: Monitor sodium level Monitor creatinine Type and screen 04/10/20: Monitor emesis Monitor sodium level BM regimen 04/11/20: BM regimen successful O2 Monitor sodium level Very fragile and fatigued 04/12/20: Monitor Sodium EGD today Fluid restriction 04/13/20: Monitor sodium level Prognosis poor Likely will need mcc 04/14/20: Discuss dispo with family Prognosis poor 04/15/20: Supportive care O2 maintained Fluid restriction 04/16/20: Monitor for falls O2 sats monitoring Fluid restriction (1) Debility (2) Acute on chronic kidney failure (3) Alcohol dependence, daily use Status: Acute (4) HTN (hypertension) Status: Acute (5) CAD (coronary artery disease) (6) Hypokalemia (7) Status post fall Status: Acute (8) STEMI (ST elevation myocardial infarction) Status: Acute (9) Hypomagnesemia (10) Multifocal PVCs Status: Acute (11) PAD (peripheral artery disease) (12) Weakness Status: Acute (13) Renal insufficiency Status: Acute (14) CHF (congestive heart failure) Status: Acute CODI HERCULES DO Apr 16, 2020 10:03
--- NOTE | 2020-04-16 10:54 | Physical Therapy Daily Note ---
PT Daily Note-Current Subjective Pt present sitting in recliner. Pt agrees to PT. Pt voices no complaint of pain. Appearance At conclusion of PT treatment pt is assisted into bed where he has access to tray, call button , and all needs have been met. Mental Status Patient Orientation: Person, Place, Time, Eyes Open, Situation Attachments: Other-See Comments personal defibrillator Transfers SCALE: Activities may be completed with or without assistive devices. 8-Fniiejgakd-fydqqtz completes the activity by him/herself with no assistance from a helper. 5-Set-up or Clean-up Assistance-helper sets up or cleans up; patient completes activity. [place] assists only prior to or following the activity. 4-Supervision or Touching Assistance-helper provides verbal cues and/or touching/steadying and/or contact guard assistance as patient completes activity. Assistance may be provided throughout the activity or intermittently. 3-Partial/Moderate Assistance-helper does LESS THAN HALF the effort. Roberts lifts, holds or supports trunk or limbs, but provides less than half the effort. 2-Substantial/Maximal Assistance-helper does MORE THAN HALF the effort. [place] lifts or holds trunk or limbs and provides more than half the effort. 1-Qkwdnyptx-fcqchf does ALL the effort. Patient does none of the effort to complete the activity. Or, the assistance of 2 or more helpers is required for the patient to complete the activity. If activity was not attempted, code reason: 7-Patient Refused. 9-Not Applicable-not attempted and the patient did not perform the activity before the current illness, exacerbation or injury. 10-Not Attempted due to Environmental Limitations-(lack of equipment, weather restraints, etc.). 88-Not Attempted due to Medical Conditions or Safety Concerns. Sit to Lying (QC): 3 Sit to Stand (QC): 3 Chair/Rze-hq-Npair Xfer(QC): 2 Pt requires mod assist with BLE to get into bed with sit->lying. Pt able to complete sit->stand with min assist inside of the parallel bars. Pt requires max assist with chair to bed transfer. Weight Bearing Full Weight Bearing Full Weight Bearing Wheelchair Training Does the Pt Use a Wheelchair?: Yes Wheel 50 ft with 2 turns (QC): 3 Wheel 150 ft (QC): 3 Type of Wheelchair: Manual Pt able to use UEs and LEs to move wheelchair but requires min assist to make significant progression. Pt fatigues and requires rest breaks with this activity. Exercises Standing in parallel bars 3x1min Treatments Wheelchair mobility and standing balance Assessment Current Status: Poor Progress Pt struggles with sit to stands; consistently requires a second attempt to gain momentum. Pt able to stand statically in parallel bars for 1 min at a time, but legs start shaking after 30s. Extremely slow WC mobility PT Short Term Goals Short Term Goals Time Frame: Apr 14, 2020 Sit to lyin Lying to sitting on side of be: 4 Sit to stand: 4 Walk 150 feet: 4 Wheel 150 feet: 6 PT Sample Grinder Goals Sample Grinder Goals PT Sample Grinder Goals Time Frame: Apr 28, 2020 Roll Left & Right (QC): 6 Sit to Lying (QC): 6 Lying-Sitting on Side/Bed(QC): 6 Sit to Stand (QC): 6 Chair/Rzc-qa-Uxxuy Xfer(QC): 6 Toilet Transfer (QC): 6 Car Transfer (QC): 5 Does the Patient Walk: Yes Walk 10 feet (QC): 6 Walk 50ft with 2 Turns (QC): 6 Walk 150 ft (QC): 6 Walking 10ft on Uneven Surface: 5 1 Step (curb) (QC): 5 4 Steps (QC): 4 12 Steps (QC): 10 Picking up an Object (QC): 3 Wheel 50 feet with 2 turns (QC: 6 Wheel 150 feet: 6 PT Plan Problem List Problem List: Activity Tolerance, Functional Strength, Safety, Balance, Gait, Transfer, Bed Mobility, ROM Treatment/Plan Treatment Plan: Continue Plan of Care Treatment Plan: Bed Mobility, Education, Functional Activity Davina, Functional Strength, Group Therapy, Gait, Safety, Therapeutic Exercise, Transfers Treatment Duration: Apr 28, 2020 Frequency: At least 5 of 7 days/Wk (IRF) Estimated Hrs Per Day: 1.5 hours per day Patient and/or Family Agrees t: Yes Safety Risks/Education Patient Education: Transfer Techniques, Correct Positioning, W/C Management, Safety Issues Teaching Recipient: Patient Teaching Methods: Demonstration, Discussion Response to Teaching: Reinforcement Needed Time/GCodes Time In: 1000 Time Out: 1100 Total Billed Treatment Time: 60 Total Billed Treatment 1 visit FA 60' RAFFAELE SANTOS PT Apr 16, 2020 10:54
--- NOTE | 2020-04-16 13:27 | Cardiology Progress Note ---
Subjective Date Seen by Provider: Apr 16, 2020 Time Seen by Provider: 13:24 Subjective/Events-last exam Patient is sitting in bed, comfortable, no new complaint Review of Systems General: No Chills, No Night Sweats, No Fatigue; Malaise; No Appetite, No Other HEENT: No Head Aches, No Visual Changes, No Eye Pain, No Ear Pain, No Dysphasia, No Sinus Congestion, No Post Nasal Drip, No Sore Throat, No Other Pulmonary: No Dyspnea, No Cough, No Pleuritic Chest Pain, No Other Cardiovascular: Edema; No: Chest Pain, Palpitations, Orthopnea, Paroxysmal Noc. Dyspnea, Lt Headedness, Other Objective-Cardiology Exam Last Set of Vital Signs Vital Signs 04/16/20 06:00 Temp 36.5 Pulse 65 Resp 19 B/P (MAP) 132/66 (88) Pulse Ox 96 O2 Delivery Room Air Capillary Refill : Less Than 3 Seconds I&O Intake and Output 04/16/20 00:00 Intake Total 1395 ml Output Total 200 ml Balance 1195 ml Intake Oral 1395 ml Output Urine Total 200 ml # Voids 6 General: Alert, Oriented X3, Cooperative HEENT: Atraumatic, PERRLA Neck: Supple, No JVD, No Thyromegaly Lungs: Clear to Auscultation, Normal Air Movement Heart: Regular Rate, Normal S1, Normal S2, No Murmurs Abdomen: Normal Bowel Sounds, Soft, No Tenderness, No Hepatosplenomegaly, No Masses Extremities: No Clubbing, No Cyanosis, Other (+2 pedal edema) Skin: No Rashes, No Significant Lesion Neuro: Normal Speech, Cranial Nerves 3-12 NL Psych/Mental Status: Mental Status NL, Mood NL Results Lab Laboratory Tests 04/16/20 06:22 A/P-Cardiology Admission Diagnosis Generalized weakness CHF CAD Acute on chronic renal insufficiency Assessment/Plan Generalized weakness, debility, receiving physical therapy. Chronic systolic and diastolic CHF. Echo of 02/19/20: LVEF 40-45%, dilated LA, mod to sev MR, AoV scl w/o stenosis, mod TR, PASP 35-40 mmHg. Echo of 03/18/20: LVEF 25-30%. Last echo 04/08/20: LVEF 30-35%, apical and anteroseptal akinesis, mod MR, mod TR, RVSP 26 mmHg - Life Vest in place Coronary artery disease with a history CABG with HUBBARD to LAD, saphenous VG to RCA, VG to diagonal artery, VG to first obtuse marginal artery, VG to second obtuse marginal artery in 1999. Mutiple subsequent PCIs. H/o RCA-SVG perforation on 11/28/18 at time of intervention for SVG occlusion by Dr Miranda. Last card cath on 11/29/18 (Dr Smith at [facility]): 40-50% LMCA, occluded LAD, patent LCX with occluded OMs, occluded RCA, patent HUBBARD-LAD, patent SVG-om, Patent SVG-RCA with patent distal stent (known to be Alp Xience 2.25x8 placed on 08/28/17). Nilsa ntained on ASA and Plavix Borderline hypotension, better after decreasing beta blockers. Continue to monitor Dysphasia with Nausea and vomiting and wgt loss, S/P endoscopy on 04-12-[address] Clemente showing gastroparesis, gastritis, esophageal stricture (ballooning performed the same day), hiatal hernia Hyponatremia/hyperkalemia, receiving fluids. Continue to monitor electrolytes. Not receiving any KIZZY inhibitor and/or ARB at this point. Acute renal insufficiency. Acute component likely related to volume depletion from vomiting, I will give 500 mL of normal saline and monitor renal function Hyperlipidemia being treated with statin therapy, continue to monitor. Diabetes mellitus, type II. Gastroesophageal reflux. Tobaccoism consisting of smoking cigars. Advised smoking cessation Carotid arterial disease, mild, per ultrasonography of June 2017, continue to monitor as outpatient. Clinical Quality Measures DVT/VTE Risk/Contraindication: Risk Factor Score Per Nursin RFS Level Per Nursing on Admit: 4+=Very High HANS MIRANDA MD Apr 16, 2020 13:26
--- NOTE | 2020-04-16 13:36 | Occupational Ther Daily Note ---
OT Current Status-Daily Note Subjective Pt was in bed. Pt no c/o pain. Pt agreed to therapy. Mental Status/Objective Patient Orientation: Person, Place, Time, Situation Attachments: IV, Other-See Comments (life vest) ADL-Treatment Therapy Code Descriptions/Definitions Functional [place] Measure: 0=Not Assessed/NA 4=Minimal Assistance 1=Total Assistance 5=Supervision or Setup 2=Maximal Assistance 6=Modified [place] 3=Moderate Assistance 7=Complete IndependenceSCALE: Activities may be completed with or without assistive devices. 2-Ojoowmtdti-grrydyt completes the activity by him/herself with no assistance from a helper. 5-Set-up or Clean-up Assistance-helper sets up or cleans up; patient completes activity. [place] assists only prior to or following the activity. 4-Supervision or Touching Assistance-helper provides verbal cues and/or touching/steadying and/or contact guard assistance as patient completes activity. Assistance may be provided throughout the activity or intermittently. 3-Partial/Moderate Assistance-helper does LESS THAN HALF the effort. [place] lifts, holds or supports trunk or limbs, but provides less than half the effort. 2-Substantial/Maximal Assistance-helper does MORE THAN HALF the effort. [place] lifts or holds trunk or limbs and provides more than half the effort. 3-Uaeddjiin-ogrzvo does ALL the effort. Patient does none of the effort to complete the activity. Or, the assistance of 2 or more helpers is required for the patient to complete the activity. If activity was not attempted, code reason: 7-Patient Refused. 9-Not Applicable-not attempted and the patient did not perform the activity before the current illness, exacerbation or injury. 10-Not Attempted due to Environmental Limitations-(lack of equipment, weather restraints, etc.). 88-Not Attempted due to Medical Conditions or Safety Concerns. Other Treatment Pt was in bed upon arrival. Pt agreed to UE activity, 1 lb. weights placed on wrist to work on B UE strengthening, memory. Pt was given instruction on activity, reminders on activity sequencing throughout treatment. Pt had verbal cues to keep arm up off lap, required rest breaks due to arms being weak. Nursing came in for medication. Pt stated he wanted to stay in bed, call light/phone in reach. All needs met. OT Short Term Goals Short Term Goals Time Frame: Apr 21, 2020 Eatin Oral hygiene: 6 Toileting hygiene: 3 Shower/bathe self: 3 Upper body dressin Lower body dressin Putting on/taking off footwear: 6 OT Veterinary Receptionist Goals [facility] Goals Time Frame: Apr 28, 2020 Eating (QC): 6 Oral Hygiene (QC): 6 Toileting Hygiene (QC): 6 Shower/Bathe Self (QC): 6 Upper Body Dressing (QC): 6 Lower Body Dressing (QC): 6 On/Off Footwear (QC): 6 Additional Goals: 1-Demonstrate ADL Tasks, 2-Verbalize Understanding, 3- ImproveStrength/[place] 1=Demonstrate adherence to instructed precautions during ADL tasks. 2=Patient will verbalize/demonstrate understanding of assistive devices/modifications for ADL. 3=Patient will improve strength/tolerance for activity to enable patient to perform ADL's. OT Education/Plan Problem List/Assessment Assessment: Decreased Activ Tolerance, Decreased UE Strength Discharge Recommendations Plan/Recommendations: Continue POC Treatment Plan/Plan of Care Patient would benefit from OT for education, treatment and training to promote independence in ADL's, mobility, safety and/or upper extremity function for ADL's. Plan of Care: ADL Retraining, Caregiver Training, Concurrent Therapy, Functional Mobility, Group Exercise/Act as Ind, UE Funct Exercise/Act, UE Neuromus Re-Ed/Coord, W/C Management Training Treatment Duration: Apr 28, 2020 Frequency: At least 5 of 7 days/Wk (IRF) Estimated Hrs Per Day: 1.5 hours per day Agreement: Yes Rehab Potential: Fair Time/GCodes Start Time: 13:00 Stop Time: 13:30 Total Time Billed (hr/min): 30 Billed Treatment Time 1 visit- 2 EX (30 min) LYLY PHILLIPS Apr 16, 2020 13:36
[2020-04-16] MEDS: NS IV 1000 ML 1,000 ML IV SCH (15:41)
--- NOTE | 2020-04-16 15:43 | Physical Therapy Daily Note ---
PT Daily Note-Current Subjective Pt presents sleeping supine in bed. Pt agrees to PT. Pt reports no pain. Appearance At conclusion of PT treatment pt returns to bed where he has access to tray, call button, and all needs have been met. Mental Status Patient Orientation: Person, Place, Time, Eyes Open, Situation personal defibrillator Transfers SCALE: Activities may be completed with or without assistive devices. 7-Thalkffgzl-spnipzi completes the activity by him/herself with no assistance from a helper. 5-Set-up or Clean-up Assistance-helper sets up or cleans up; patient completes activity. [place] assists only prior to or following the activity. 4-Supervision or Touching Assistance-helper provides verbal cues and/or touching/steadying and/or contact guard assistance as patient completes activity. Assistance may be provided throughout the activity or intermittently. 3-Partial/Moderate Assistance-helper does LESS THAN HALF the effort. [place] lifts, holds or supports trunk or limbs, but provides less than half the effort. 2-Substantial/Maximal Assistance-helper does MORE THAN HALF the effort. [place] lifts or holds trunk or limbs and provides more than half the effort. 1-Ncbzvrute-cicple does ALL the effort. Patient does none of the effort to complete the activity. Or, the assistance of 2 or more helpers is required for the patient to complete the activity. If activity was not attempted, code reason: 7-Patient Refused. 9-Not Applicable-not attempted and the patient did not perform the activity before the current illness, exacerbation or injury. 10-Not Attempted due to Environmental Limitations-(lack of equipment, weather restraints, etc.). 88-Not Attempted due to Medical Conditions or Safety Concerns. Sit to Lying (QC): 3 Lying to Sitting/Side of Bed(Q: 3 Sit to Stand (QC): 2 Chair/Wia-oc-Umbpk Xfer(QC): 2 Pt is requires mod assist with lying->sitting but is able to complete sit->lying with min assist. Pt requires max assist with sit to stand and chair<->bed transfers. Weight Bearing Full Weight Bearing Full Weight Bearing Wheelchair Training Does the Pt Use a Wheelchair?: Yes Wheel 50 ft with 2 turns (QC): 3 Wheel 150 ft (QC): 3 Type of Wheelchair: Manual 300'. Pt requires min assist to supplement his fwd progression via UEs and/or LEs. Treatments Wheelchair mobility Assessment Current Status: Fair Progress Pt struggles with static seated balance at EOB. Pt requires regular breaks with wheelchair mobility due to fatigue in arms and legs. Pt assists with sit to stand with chair<->bed transfers using UEs to push off stable surface but struggles with pivot and regressing to hugging onto therapist. PT Short Term Goals Short Term Goals Time Frame: Apr 14, 2020 Sit to lyin Lying to sitting on side of be: 4 Sit to stand: 4 Walk 150 feet: 4 Wheel 150 feet: 6 PT Cloth Bleaching Range Operator Chief Goals Snf Goals PT Cloth Bleaching Range Operator Chief Goals Time Frame: Apr 28, 2020 Roll Left & Right (QC): 6 Sit to Lying (QC): 6 Lying-Sitting on Side/Bed(QC): 6 Sit to Stand (QC): 6 Chair/Els-gk-Ojqvy Xfer(QC): 6 Toilet Transfer (QC): 6 Car Transfer (QC): 5 Does the Patient Walk: Yes Walk 10 feet (QC): 6 Walk 50ft with 2 Turns (QC): 6 Walk 150 ft (QC): 6 Walking 10ft on Uneven Surface: 5 1 Step (curb) (QC): 5 4 Steps (QC): 4 12 Steps (QC): 10 Picking up an Object (QC): 3 Wheel 50 feet with 2 turns (QC: 6 Wheel 150 feet: 6 PT Plan Problem List Problem List: Activity Tolerance, Functional Strength, Safety, Balance, Gait, Transfer, Bed Mobility, ROM Treatment/Plan Treatment Plan: Continue Plan of Care Treatment Plan: Bed Mobility, Education, Functional Activity Davina, Functional Strength, Group Therapy, Gait, Safety, Therapeutic Exercise, Transfers Treatment Duration: Apr 28, 2020 Frequency: At least 5 of 7 days/Wk (IRF) Estimated Hrs Per Day: 1.5 hours per day Patient and/or Family Agrees t: Yes Safety Risks/Education Patient Education: Transfer Techniques, Correct Positioning, W/C Management, Safety Issues Teaching Recipient: Patient Teaching Methods: Demonstration, Discussion Response to Teaching: Reinforcement Needed Time/GCodes Time In: 1500 Time Out: 1530 Total Billed Treatment Time: 30 Total Billed Treatment 1 visit FA 30' RAFFAELE SANTOS PT Apr 16, 2020 15:43
--- NOTE | 2020-04-16 16:18 | NUR ---
CM/SS VOTING Inquiry was made regarding the upcoming Presidential election and whether patient had an alternate plan to vote due to his hospitalization. Patient's target discharge is April 20. He indicated his spouse would assist him with the voting process after his release from hospital.
[2020-04-16 16:30] VITALS: BP 121/59
--- NOTE | 2020-04-16 16:55 | NUR ---
CM/SS DISCHARGE PLANNING Followup to conversation with patient's spouse yesterday about a family plan for patient to return home as before. Spouse Keira stated she had not yet had the time to speak with her family regarding her proposals from yesterday's discussion. Market Research Lead connected Keira with [facility] and they discussed private pay care. [facility] followed up with marketing underwriter and indicates Keira stated they could only pay for two hours daily without financial hardship. [facility]ious asked about exploring [facility] and Keira followed by saying they were not that poor yet. Additionally, Keira told [facility] she was interested in someone who could come when called for toileting, etc. Followup Sunday. Keira seems stressed beyond able to act right now for decision-making. It is not feasible for a private agency to be "on-call" for toileting and transfers. It is not feasible for the son Hector to continue to try to come and go from his employment to act as the "on-call" person. Complex dynamics as far as barriers to discharge planning. Resistance to community fci placement, financial hardship for in-home caregivers, lack of sustainable family support. Patient is unable to consistently stand/pivot/transfer safely which is prohibitive to one sole caregiver managing this level of functioning, paid or family.
[2020-04-16] MEDS: ASPIRIN E.C. 81 MG (ECOTRIN) TAB PO SCH (21:48)
[2020-04-16] MEDS: MELATONIN 3 MG TABLET PO PRN (21:48)
[2020-04-17] MEDS: METOCLOPRAMIDE INJ 10 MG/2 ML (REGLAN) IVP SCH ×4 (00:13→17:30)
[2020-04-17] MEDS: MULTIVIT W/MINERALS TAB (THERAGRAN M) PO SCH (05:53)
[2020-04-17] MEDS: CATHETER FLUSH 10 ML SYR IV SCH ×3 (05:53→21:43)
[2020-04-17] MEDS: NS IV 1000 ML 1,000 ML IV SCH ×2 (05:54→21:51)
[2020-04-17 06:20] VITALS: BP 115/63
--- NOTE | 2020-04-17 06:26 | PM&R Progress Note ---
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 lab analyst Potassium level 5.5 Sodium level 128 Swallowing better since EGD and dilatation 04/15/20: Pt doing pretty well Imdur will be changed to 9:00 in the morning from 3:00 Edema noted but it is stable Somewhat confused at times 04/14/20: Pt doing pretty well but still very declined Fluid restriction maintained and bowels will need more laxative He really needs to go to a mcc and he really appears to be a CHF hospice candidate 04/13/20: Sodium level 126 Gastroparesis was found on EGD so started on Reglan IV Q6hrs Dilated his esophagus also Labs remain stable 04/12/20: Sodium level 127 Hgb 10.4 EGD today NPO for now but he is hungry Fluid restriction and sodium tablets improving sodium level at 127 04/11/20: EGD in morning Nausea and vomiting continues daily Reglan given with good results BM x 2 today O2 maintained 04/10/20: Emesis today as he does a lot at home Sodium level is 124 Salt tablets started along with fluid restriction No BM for several days 04/09/20: Very debilitated Tires out easily Lifevest maintained No BM yesterday Wants to know his blood type and since he appears to be very pale and hgb is low will type and screen to prepare for transfusion if needed BNP is very elevated Stopping IVF Had N/V and given Reglan Patient has severe weakness Frequent breaks required Very debilitated Urine is concentrated so will start gentle IVF Dyspnea is severe Prognosis guarded Very debilitated Checked meds and labs Conferred with RN Reviewed therapy notes Review of Systems General: Fatigue Pulmonary: Dyspnea Neurological: Weakness Objective Exam Vital Signs Vital Signs Date Time Temp Pulse Resp B/P (MAP) Pulse Ox O2 Delivery O2 Flow Rate FiO2 04/17/20 16:08 36.6 55 16 125/71 (89) 96 Room Air Capillary Refill : Less Than 3 Seconds General Appearance: No Apparent Distress, WD/WN, Chronically ill HEENT: PERRL/EOMI, Normal ENT Inspection, Pharynx Normal Neck: Full Range of Motion, Normal Inspection, Non Tender, Supple, Carotid Bruit Respiratory: Chest Non Tender, Lungs Clear, No Accessory Muscle Use, No Respiratory Distress, Decreased Breath Sounds Cardiovascular: Regular Rate, Rhythm, No Edema, No Gallop, No JVD, No Murmur, Normal Peripheral Pulses Gastrointestinal: Normal Bowel Sounds, No Organomegaly, No Pulsatile Mass, Non Tender, Soft Back: Normal Inspection, No CVA Tenderness, No Vertebral Tenderness Extremity: Normal Capillary Refill, Normal Inspection, Normal Range of Motion, Non Tender, No Calf Tenderness, No Pedal Edema Neurologic/Psychiatric: Alert, Oriented x3, No Motor/Sensory Deficits, phlebotomy services technician II- XII Norm as Tested, Abnormal Gait, Depressed Affect, Motor Weakness (generalized all extremities) Skin: Normal Color, Warm/Dry Lymphatic: No Adenopathy Results/Procedures Lab Patient resulted labs reviewed. FIM Transfers Therapy Code Descriptions/Definitions Functional [place] Measure: 0=Not Assessed/NA 4=Minimal Assistance 1=Total Assistance 5=Supervision or Setup 2=Maximal Assistance 6=Modified [place] 3=Moderate Assistance 7=Complete IndependenceSCALE: Activities may be completed with or without assistive devices. 2-Ebfkofeqom-gonflnd completes the activity by him/herself with no assistance from a helper. 5-Set-up or Clean-up Assistance-helper sets up or cleans up; patient completes activity. [place] assists only prior to or following the activity. 4-Supervision or Touching Assistance-helper provides verbal cues and/or touching/steadying and/or contact guard assistance as patient completes activity. Assistance may be provided throughout the activity or intermittently. 3-Partial/Moderate Assistance-helper does LESS THAN HALF the effort. [place] lifts, holds or supports trunk or limbs, but provides less than half the effort. 2-Substantial/Maximal Assistance-helper does MORE THAN HALF the effort. [place] l ifts or holds trunk or limbs and provides more than half the effort. 2-Vnszyphew-fwjcsq does ALL the effort. Patient does none of the effort to complete the activity. Or, the assistance of 2 or more helpers is required for the patient to complete the activity. If activity was not attempted, code reason: 7-Patient Refused. 9-Not Applicable-not attempted and the patient did not perform the activity before the current illness, exacerbation or injury. 10-Not Attempted due to Environmental Limitations-(lack of equipment, weather restraints, etc.). 88-Not Attempted due to Medical Conditions or Safety Concerns. Roll Left to Right (QC): 4 Sit to Lying (QC): 3 Sit to Stand (QC): 2 Chair/Pfy-ol-Sfffy Xfer(QC): 2 Car Transfer (QC): 88 (Pt unable to safetly attempt this visit. Will attempt tomorrow. ) Gait Training Does the Patient Walk?: Yes Distance: 15'x2 Walk 10 feet (QC): 4 Walk 50 ft with 2 Turns(QC): 4 Walk 150 ft (QC): 88 Walking 10ft/uneven surface-QC: 88 Gait Persons Needed: 1 (plus w/c assist and IV assist) Gait Assistive Device: FWW Wheelchair Training Does the Pt Use a Wheelchair?: Yes Distance: 50 ft Wheel 50 ft with 2 turns (QC): 3 Wheel 150 ft (QC): 3 Type of Wheelchair: Manual Stair Training 1 Step (curb) (QC): 88 4 Steps (QC): 88 12 Steps (QC): 88 Balance Picking up an Object (QC): 88 ADL-Treatment Eating (QC): 6 Oral Hygiene (QC): 6 Bathing Location: L Arm, R Arm, L Upper Leg, R Upper Leg, L Lower Leg (including foot), R Lower Leg (including foot), Chest, Abdomen Shower/Bathe Self (QC): 3 Upper Body Dressing (QC): 2 Lower Body Dressing (QC): 2 On/Off Footwear (QC): 2 Toileting Hygiene (QC): 3 Toilet Transfer (QC): 3 Assessment/Plan Assessment and Plan Assess & Plan/Chief Complaint Assessment: Debility with myopathy CHF on lifevest HTN CRI HTN HLP Smoker ETOHism Hypoxia Hyponatremia COPD Plan: Monitor creatinine Cardiology consult Monitor pain IRF protocol 04/08/20: Very debilitated Work on stamina Maintain O2 IVF gentle for dehydration Monitor sodium level 04/09/20: Monitor sodium level Monitor creatinine Type and screen 04/10/20: Monitor emesis Monitor sodium level BM regimen 04/11/20: BM regimen successful O2 Monitor sodium level Very fragile and fatigued 04/12/20: Monitor Sodium EGD today Fluid restriction 04/13/20: Monitor sodium level Prognosis poor Likely will need mcc 04/14/20: Discuss dispo with family Prognosis poor 04/15/20: Supportive care O2 maintained Fluid restriction 04/16/20: Monitor for falls O2 sats monitoring Fluid restriction 04/17/20: Josue lift needed at times and slid half down chair and couldn't get to his call light right before I walked in Needs mcc (1) Debility (2) Acute on chronic kidney failure (3) Alcohol dependence, daily use Status: Acute (4) HTN (hypertension) Status: Acute (5) CAD (coronary artery disease) (6) Hypokalemia (7) Status post fall Status: Acute (8) STEMI (ST elevation myocardial infarction) Status: Acute (9) Hypomagnesemia (10) Multifocal PVCs Status: Acute (11) PAD (peripheral artery disease) (12) Weakness Status: Acute (13) Renal insufficiency Status: Acute (14) CHF (congestive heart failure) Status: Acute CODI HERCULES DO Apr 17, 2020 06:26
--- NOTE | 2020-04-17 08:57 | Physical Therapy Daily Note ---
PT Daily Note-Current Subjective Pt. in bed, agrees to up in chair but states he is feeling weaker. Wants jacket and pants on Pain Location: No Pain Reported Mental Status Patient Orientation: Person, Place Attachments: Other-See Comments (jessica todd) Transfers SCALE: Activities may be completed with or without assistive devices. 3-Nuuksianon-lvhafed completes the activity by him/herself with no assistance from a helper. 5-Set-up or Clean-up Assistance-helper sets up or cleans up; patient completes activity. [place] assists only prior to or following the activity. 4-Supervision or Touching Assistance-helper provides verbal cues and/or touching/steadying and/or contact guard assistance as patient completes acti vity. Assistance may be provided throughout the activity or intermittently. 3-Partial/Moderate Assistance-helper does LESS THAN HALF the effort. [place] lifts, holds or supports trunk or limbs, but provides less than half the effort. 2-Substantial/Maximal Assistance-helper does MORE THAN HALF the effort. [place] lifts or holds trunk or limbs and provides more than half the effort. 3-Oloojmbwt-ebjsrv does ALL the effort. Patient does none of the effort to complete the activity. Or, the assistance of 2 or more helpers is required for the patient to complete the activity. If activity was not attempted, code reason: 7-Patient Refused. 9-Not Applicable-not attempted and the patient did not perform the activity before the current illness, exacerbation or injury. 10-Not Attempted due to Environmental Limitations-(lack of equipment, weather restraints, etc.). 88-Not Attempted due to Medical Conditions or Safety Concerns. sup to sit utilizing HOB up as pt.required mod to max assist to come to sitting EOB, and mod to min assist to maintain sitting for 1st 4min, max assist to devora clothing in sitting, sit to stand attempted x 2 with pt. requiring max to mod assist of 1 , help was summoned and max assist was required for stance while 2nd assist pulled up pants, attempts were made to have pt, use FWW for stance and TRF to recliner only 3-4 steps away but pt.was "folded" at waist and flexed at knees and hips and required max to mod of 2 for SPT bed to chair. Weight Bearing Full Weight Bearing Full Weight Bearing Exercises Seated Therapy Exercises: Ankle pumps, Long arc quads Seated Reps: 10 Treatments TRFs, dressing Assessment Current Status: Fair Progress appears to have declined in function PT Short Term Goals Short Term Goals Time Frame: Apr 14, 2020 Sit to lyin Lying to sitting on side of be: 4 Sit to stand: 4 Walk 150 feet: 4 Wheel 150 feet: 6 PT Shelter Goals Shelter Goals PT Shelter Goals Time Frame: Apr 28, 2020 Roll Left & Right (QC): 6 Sit to Lying (QC): 6 Lying-Sitting on Side/Bed(QC): 6 Sit to Stand (QC): 6 Chair/Bun-uk-Apwnv Xfer(QC): 6 Toilet Transfer (QC): 6 Car Transfer (QC): 5 Does the Patient Walk: Yes Walk 10 feet (QC): 6 Walk 50ft with 2 Turns (QC): 6 Walk 150 ft (QC): 6 Walking 10ft on Uneven Surface: 5 1 Step (curb) (QC): 5 4 Steps (QC): 4 12 Steps (QC): 10 Picking up an Object (QC): 3 Wheel 50 feet with 2 turns (QC: 6 Wheel 150 feet: 6 PT Plan Treatment/Plan Treatment Plan: Continue Plan of Care Treatment Plan: Bed Mobility, Education, Functional Activity [place], Functional Strength, Group Therapy, Gait, Safety, Therapeutic Exercise, Transfers Treatment Duration: Apr 28, 2020 Frequency: At least 5 of 7 days/Wk (IRF) Estimated Hrs Per Day: 1.5 hours per day Patient and/or Family Agrees t: Yes Safety Risks/Education Patient Education: Transfer Techniques, Correct Positioning, Safety Issues Teaching Recipient: Health Care Proxy Response to Teaching: Reinforcement Needed Time/GCodes Time In: 820 Time Out: 840 Total Billed Treatment Time: 20 Total Billed Treatment 1,FA20m KELLY BURDEN LINEN CHECKER Apr 17, 2020 08:57
[2020-04-17] MEDS: FAMOTIDINE 20 MG (PEPCID) TABLET PO SCH ×2 (10:04→21:42)
[2020-04-17] MEDS: meTOprolol TARTRATE 50 MG (LOPRESSOR) TAB PO SCH ×2 (10:04→21:42)
[2020-04-17] MEDS: MAGNESIUM OXIDE (MAG-OX)400 MG TAB PO SCH (10:04)
[2020-04-17] MEDS: THIAMINE 100 MG (VITAMIN B-1) TAB PO SCH (10:04)
[2020-04-17] MEDS: OMEGA 3 (FISH OIL) 1000 MG CAP PO SCH ×2 (10:04→17:30)
[2020-04-17] MEDS: ISOSORBIDE MONONITRATE 60 MG (IMDUR) TAB PO SCH (10:04)
[2020-04-17] MEDS: RANOLAZINE ER 500 MG TAB (RANEXA) PO SCH ×2 (10:05→21:42)
[2020-04-17] MEDS: CLOPIDOGREL 75 MG (PLAVIX) TABLET PO SCH (10:05)
[2020-04-17] MEDS: FOLIC ACID 1 MG TAB PO SCH (10:05)
[2020-04-17] MEDS: SENNA W/DOCUSATE (SENOKOT S) TABLET PO SCH ×2 (10:06→21:42)
[2020-04-17] MEDS: DOCUSATE SODIUM 100 MG (COLACE) CAP PO SCH ×2 (10:06→21:42)
[2020-04-17] MEDS: polyethylene glycoL POWDER 17 GM (MIRALAX) PACK PO SCH ×2 (10:06→21:40)
[2020-04-17] MEDS: SODIUM CHLORIDE 1 GM TABLET PO SCH ×2 (10:07→21:41)
--- NOTE | 2020-04-17 10:42 | Cardiology Progress Note ---
Subjective Date Seen by Provider: Apr 17, 2020 Time Seen by Provider: 10:40 Subjective/Events-last exam Patient is feeling better. No new complaint, sitting in a chair comfortably Review of Systems General: No Chills, No Night Sweats, No Fatigue, No Malaise, No Appetite, No Other HEENT: No Head Aches, No Visual Changes, No Eye Pain, No Ear Pain, No Dysphasia, No Sinus Congestion, No Post Nasal Drip, No Sore Throat, No Other Pulmonary: Dyspnea; No Cough, No Pleuritic Chest Pain, No Other Cardiovascular: No: Chest Pain, Palpitations, Orthopnea, Paroxysmal Noc. Dyspnea, Edema, Lt Headedness, Other Objective-Cardiology Exam Last Set of Vital Signs Vital Signs 04/17/20 06:20 Temp 36.4 Pulse 56 Resp 20 B/P (MAP) 115/63 (80) Pulse Ox 94 O2 Delivery Room Air Capillary Refill : Less Than 3 Seconds I&O Intake and Output 04/17/20 00:00 Intake Total 1080 ml Output Total 300 ml Balance 780 ml Intake Oral 1080 ml Output Urine Total 300 ml # Voids 4 # Bowel Movements 2 General: Alert, Oriented X3, Cooperative HEENT: Atraumatic, PERRLA Neck: Supple, No JVD, No Thyromegaly Lungs: Clear to Auscultation, Normal Air Movement Heart: Regular Rate, Normal S1, Normal S2, No Murmurs Abdomen: Normal Bowel Sounds, Soft, No Tenderness, No Hepatosplenomegaly, No Masses Extremities: No Clubbing, No Cyanosis, Other (+2 pedal edema) Skin: No Rashes, No Significant Lesion Neuro: Normal Speech, Cranial Nerves 3-12 NL Psych/Mental Status: Mental Status NL, Mood NL A/P-Cardiology Admission Diagnosis Generalized weakness CHF CAD Acute on chronic renal insufficiency Assessment/Plan Generalized weakness, debility, receiving physical therapy. Hyperkalemia, repeat metabolic profile in the morning, continue to monitor Acute on chronic renal insufficiency probably worsening volume depletion with the nausea and vomiting. I will repeat metabolic profile in the morning Dysphagia, nausea and vomiting with weight loss, status post endoscopy. Had gastroparesis and esophageal stricture, had balloon dilatation done. Managed by primary care team Chronic systolic and diastolic CHF. Echo of 02/19/20: LVEF 40-45%, dilated LA, mod to sev MR, AoV scl w/o stenosis, mod TR, PASP 35-40 mmHg. Echo of 03/18/20: LVEF 25-30%. Last echo 04/08/20: LVEF 30-35%, apical and anteroseptal akinesis, mod MR, mod TR, RVSP 26 mmHg - Life Vest in place Coronary artery disease with a history CABG with HUBBARD to LAD, saphenous VG to RC A, VG to diagonal artery, VG to first obtuse marginal artery, VG to second obtuse marginal artery in 1999. Mutiple subsequent PCIs. H/o RCA-SVG perforation on 11/28/18 at time of intervention for SVG occlusion by Dr Miranda. Last card cath on 11/29/18 (Dr Smith at [facility]): 40-50% LMCA, occluded LAD, patent LCX with occluded OMs, occluded RCA, patent HUBBARD-LAD, patent SVG-om, Patent SVG-RCA with patent distal stent (known to be Alp Xience 2.25x8 placed on 08/28/17). Maintained on ASA and Plavix Borderline hypotension, better after decreasing beta blockers. Continue to monitor Hyperlipidemia being treated with statin therapy, continue to monitor. Diabetes mellitus, type II. Managed by primary care team Tobaccoism consisting of smoking cigars. Advised smoking cessation Carotid arterial disease, mild, per ultrasonography of June 2017, continue to monitor as outpatient. Clinical Quality Measures DVT/VTE Risk/Contraindication: Risk Factor Score Per Nursin RFS Level Per Nursing on Admit: 4+=Very High HANS MIRANDA MD Apr 17, 2020 10:42 am
--- NOTE | 2020-04-17 12:49 | NUR ---
Approx an hour ago, received a call from pt's , stating that pt called her, saying that he was about to slide out of the recliner, & he couldn't reach his call light. Immediately went in to room along w PCT, Margaux, found pt in recliner but legs had slid down aways. PCT states that she had just checked on pt a few minutes prior & he was sitting properly in the recliner. Dr. Perez was making rounds & is aware of pt's predicament. Pt was scooted up back in to the recliner by 2 staff using draw sheet under pt in recliner. The call light was within reach of pt when we entered room. Pt states that he was trying to get up for lunch. Lunch arrived just after we had gotten pt positioned, pinned call light to pt's clothes to secure accessibility. At this time, pt watching car show on tv. Pt ate cooked apples for lunch & strawberry Ensure which he likes, refused the rest, or any offers to get other foods for pt. Call lt remains pinned to pt's shirt.
[2020-04-17 16:08] VITALS: BP 125/71
[2020-04-17] MEDS: MELATONIN 3 MG TABLET PO PRN (21:42)
[2020-04-17] MEDS: ASPIRIN E.C. 81 MG (ECOTRIN) TAB PO SCH (21:42)
[2020-04-18] MEDS: METOCLOPRAMIDE INJ 10 MG/2 ML (REGLAN) IVP SCH ×4 (00:26→17:53)
[2020-04-18 05:55] LABS: HEMOGLOBIN 10.6 g/dL (13.3-17.7); MEAN PLATELET VOLUME 9.1 fL (9.0-12.2); WHITE BLOOD COUNT 9.9 10^3/uL (4.3-11.0)
[2020-04-18 06:00] VITALS: BP 121/71
[2020-04-18] MEDS: MULTIVIT W/MINERALS TAB (THERAGRAN M) PO SCH (06:05)
[2020-04-18] MEDS: CATHETER FLUSH 10 ML SYR IV SCH ×2 (06:08→08:55)
[2020-04-18 06:19] LABS: CALCIUM 8.9 MG/DL (8.5-10.1); CREATININE SERUM 1.6 MG/DL (0.60-1.30); POTASSIUM 5.8 MMOL/L (3.6-5.0); TOTAL PROTEIN 6.6 GM/DL (6.4-8.2)
[2020-04-18 08:48] VITALS: BP 130/62
[2020-04-18] MEDS: FAMOTIDINE 20 MG (PEPCID) TABLET PO SCH ×2 (08:53→20:34)
[2020-04-18] MEDS: MAGNESIUM OXIDE (MAG-OX)400 MG TAB PO SCH (08:54)
[2020-04-18] MEDS: CLOPIDOGREL 75 MG (PLAVIX) TABLET PO SCH (08:54)
[2020-04-18] MEDS: THIAMINE 100 MG (VITAMIN B-1) TAB PO SCH (08:54)
[2020-04-18] MEDS: meTOprolol TARTRATE 50 MG (LOPRESSOR) TAB PO SCH (08:54)
[2020-04-18] MEDS: OMEGA 3 (FISH OIL) 1000 MG CAP PO SCH ×2 (08:54→17:53)
[2020-04-18] MEDS: FOLIC ACID 1 MG TAB PO SCH (08:54)
[2020-04-18] MEDS: ISOSORBIDE MONONITRATE 60 MG (IMDUR) TAB PO SCH (08:54)
[2020-04-18] MEDS: RANOLAZINE ER 500 MG TAB (RANEXA) PO SCH ×2 (08:54→20:34)
[2020-04-18] MEDS: DOCUSATE SODIUM 100 MG (COLACE) CAP PO SCH ×2 (08:54→20:34)
[2020-04-18] MEDS: SENNA W/DOCUSATE (SENOKOT S) TABLET PO SCH ×2 (08:55→20:34)
[2020-04-18] MEDS: polyethylene glycoL POWDER 17 GM (MIRALAX) PACK PO SCH ×2 (08:55→20:30)
[2020-04-18] MEDS: SODIUM CHLORIDE 1 GM TABLET PO SCH ×2 (09:10→20:34)
[2020-04-18] MEDS ORDERED: SOD POLYSTERENE 15 GM/60 ML (KAYEXALATE) UNIT DOSE PO NR (11:00)
--- NOTE | 2020-04-18 11:46 | PM&R Progress Note ---
Subjective HPI/CC On Admission Date Seen by Provider: Apr 18, 2020 Time Seen by Provider: 12:00 Subjective/Events-last exam 04/18/20: Called again when he couldn't find his call light and it was right next to him within reach Behaviors are occurring more and more often Kayexalate given for potassium 5.8 04/17/20: NS 500cc IVF given per Dr Ruth Salas lift needed earlier to get back into bed Slid down chair and called his who called nurse because he could not get his call light Patient is obviously unable to reside at home especially considering Josue lift needed at times and this issue with sliding down chair 04/16/20: Pt doing pretty well Had a controlled fall with respiratory therapy and clinical lab specialist Potassium level 5.5 Sodium level 128 Swallowing better since EGD and dilatation 04/15/20: Pt doing pretty well Imdur will be changed to 9:00 in the morning from 3:00 Edema noted but it is stable Somewhat confused at times 04/14/20: Pt doing pretty well but still very declined Fluid restriction maintained and bowels will need more laxative He really needs to go to a retirement and he really appears to be a CHF hospice candidate 04/13/20: Sodium level 126 Gastroparesis was found on EGD so started on Reglan IV Q6hrs Dilated his esophagus also Labs remain stable 04/12/20: Sodium level 127 Hgb 10.4 EGD today NPO for now but he is hungry Fluid restriction and sodium tablets improving sodium level at 127 04/11/20: EGD in morning Nausea and vomiting continues daily Reglan given with good results BM x 2 today O2 maintained 04/10/20: Emesis today as he does a lot at home Sodium level is 124 Salt tablets started along with fluid restriction No BM for several days 04/09/20: Very debilitated Tires out easily Lifevest maintained No BM yesterday Wants to know his blood type and since he appears to be very pale and hgb is low will type and screen to prepare for transfusion if needed BNP is very elevated Stopping IVF Had N/V and given Reglan Patient has severe weakness Frequent breaks required Very debilitated Urine is concentrated so will start gentle IVF Dyspnea is severe Prognosis guarded Very debilitated Checked meds and labs Conferred with RN Reviewed therapy notes Review of Systems General: Fatigue, Malaise Pulmonary: Dyspnea Neurological: Confusion Objective Exam Vital Signs Vital Signs Date Time Temp Pulse Resp B/P (MAP) Pulse Ox O2 Delivery O2 Flow Rate FiO2 04/18/20 08:48 36.5 63 20 130/62 (84) 96 Room Air Capillary Refill : Less Than 3 Seconds General Appearance: No Apparent Distress, WD/WN, Chronically ill HEENT: PERRL/EOMI, Normal ENT Inspection, Pharynx Normal Neck: Full Range of Motion, Normal Inspection, Non Tender, Supple, Carotid Bruit Respiratory: Chest Non Tender, Lungs Clear, No Accessory Muscle Use, No Respiratory Distress, Decreased Breath Sounds Cardiovascular: Regular Rate, Rhythm, No Edema, No Gallop, No JVD, No Murmur, Normal Peripheral Pulses Gastrointestinal: Normal Bowel Sounds, No Organomegaly, No Pulsatile Mass, Non Tender, Soft Back: Normal Inspection, No CVA Tenderness, No Vertebral Tenderness Extremity: Normal Capillary Refill, Normal Inspection, Normal Range of Motion, Non Tender, No Calf Tenderness, No Pedal Edema Neurologic/Psychiatric: Alert, Oriented x3, No Motor/Sensory Deficits, research microbiologist II- XII Norm as Tested, Abnormal Gait, Depressed Affect, Motor Weakness (generalized all extremities) Skin: Normal Color, Warm/Dry Lymphatic: No Adenopathy Results/Procedures Lab Laboratory Tests 04/18/20 05:20 Patient resulted labs reviewed. FIM Transfers Therapy Code Descriptions/Definitions Functional [place] Measure: 0=Not Assessed/NA 4=Minimal Assistance 1=Total Assistance 5=Supervision or Setup 2=Maximal Assistance 6=Modified [place] 3=Moderate Assistance 7=Complete IndependenceSCALE: Activities may be completed with or without assistive devices. 3-Yekdegyxbu-klfrwgx completes the activity by him/herself with no assistance from a helper. 5-Set-up or Clean-up Assistance-helper sets up or cleans up; patient completes activity. [place] assists only prior to or following the activity. 4-Supervision or Touching Assistance-helper provides verbal cues and/or touching/steadying and/or contact guard assistance as patient completes activity. Assistance may be provided throughout the activity or intermittently. 3-Partial/Moderate Assistance-helper does LESS THAN HALF the effort. [place] lifts, holds or supports trunk or limbs, but provides less than half the effort. 2-Substantial/Maximal Assistance-helper does MORE THAN HALF the effort. [place] lifts or holds trunk or limbs and provides more than half the effort. 8-Elhirfxlq-mdzmek does ALL the effort. Patient does none of the effort to complete the activity. Or, the assistance of 2 or more helpers is required for the patient to complete the activity. If activity was not attempted, code reason: 7-Patient Refused. 9-Not Applicable-not attempted and the patient did not perform the activity before the current illness, exacerbation or injury. 10-Not Attempted due to Environmental Limitations-(lack of equipment, weather restraints, etc.). 88-Not Attempted due to Medical Conditions or Safety Concerns. Roll Left to Right (QC): 4 Sit to Lying (QC): 3 Sit to Stand (QC): 2 Chair/Ffw-ct-Feugj Xfer(QC): 2 Car Transfer (QC): 88 (Pt unable to safetly attempt this visit. Will attempt tomorrow. ) Gait Training Does the Patient Walk?: Yes Distance: 15'x2 Walk 10 feet (QC): 4 Walk 50 ft with 2 Turns(QC): 4 Walk 150 ft (QC): 88 Walking 10ft/uneven surface-QC: 88 Gait Persons Needed: 1 (plus w/c assist and IV assist) Gait Assistive Device: FWW Wheelchair Training Does the Pt Use a Wheelchair?: Yes Distance: 50 ft Wheel 50 ft with 2 turns (QC): 3 Wheel 150 ft (QC): 3 Type of Wheelchair: Manual Stair Training 1 Step (curb) (QC): 88 4 Steps (QC): 88 12 Steps (QC): 88 Balance Picking up an Object (QC): 88 ADL-Treatment Eating (QC): 6 Oral Hygiene (QC): 6 Bathing Location: L Arm, R Arm, L Upper Leg, R Upper Leg, L Lower Leg (including foot), R Lower Leg (including foot), Chest, Abdomen Shower/Bathe Self (QC): 3 Upper Body Dressing (QC): 2 Lower Body Dressing (QC): 2 On/Off Footwear (QC): 2 Toileting Hygiene (QC): 3 Toilet Transfer (QC): 3 Assessment/Plan Assessment and Plan Assess & Plan/Chief Complaint Assessment: Debility with myopathy CHF on lifevest HTN CRI HTN HLP Smoker ETOHism Hypoxia Hyponatremia COPD Plan: Monitor creatinine Cardiology consult Monitor pain IRF protocol 04/08/20: Very debilitated Work on stamina Maintain O2 IVF gentle for dehydration Monitor sodium level 04/09/20: Monitor sodium level Monitor creatinine Type and screen 04/10/20: Monitor emesis Monitor sodium level BM regimen 04/11/20: BM regimen successful O2 Monitor sodium level Very fragile and fatigued 04/12/20: Monitor Sodium EGD today Fluid restriction 04/13/20: Monitor sodium level Prognosis poor Likely will need retirement 04/14/20: Discuss dispo with family Prognosis poor 04/15/20: Supportive care O2 maintained Fluid restriction 04/16/20: Monitor for falls O2 sats monitoring Fluid restriction 04/17/20: Josue lift needed at times and slid half down chair and couldn't get to his call light right before I walked in Needs retirement 04/18/20: Needs retirement or hospice to home at [place] Prognosis poor (1) Debility (2) Acute on chronic kidney failure (3) Alcohol dependence, daily use Status: Acute (4) HTN (hypertension) Status: Acute (5) CAD (coronary artery disease) (6) Hypokalemia (7) Status post fall Status: Acute (8) STEMI (ST elevation myocardial infarction) Status: Acute (9) Hypomagnesemia (10) Multifocal PVCs Status: Acute (11) PAD (peripheral artery disease) (12) Weakness Status: Acute (13) Renal insufficiency Status: Acute (14) CHF (congestive heart failure) Status: Acute CODI HERCULES DO Apr 18, 2020 11:46
--- NOTE | 2020-04-18 11:59 | Cardiology Progress Note ---
Subjective Date Seen by Provider: Apr 18, 2020 Time Seen by Provider: 11:58 Subjective/Events-last exam Patient is sitting comfortably in bed, denied any chest pain. Review of Systems General: No Chills, No Night Sweats, No Fatigue, No Malaise, No Appetite, No Other HEENT: No Head Aches, No Visual Changes, No Eye Pain, No Ear Pain, No Dysphasia, No Sinus Congestion, No Post Nasal Drip, No Sore Throat, No Other Pulmonary: No Dyspnea, No Cough, No Pleuritic Chest Pain, No Other Cardiovascular: No: Chest Pain, Palpitations, Orthopnea, Paroxysmal Noc. Dyspnea, Edema, Lt Headedness, Other Objective-Cardiology Exam Last Set of Vital Signs Vital Signs 04/18/20 08:48 Temp 36.5 Pulse 63 Resp 20 B/P (MAP) 130/62 (84) Pulse Ox 96 O2 Delivery Room Air Capillary Refill : Less Than 3 Seconds I&O Intake and Output 04/18/20 00:00 Intake Total 1540 ml Balance 1540 ml Intake Oral 1040 ml IV Total 500 ml # Voids 6 # Bowel Movements 1 General: Alert, Oriented X3, Cooperative HEENT: Atraumatic, PERRLA Neck: Supple, No JVD, No Thyromegaly Lungs: Clear to Auscultation, Normal Air Movement Heart: Regular Rate, Normal S1, Normal S2, No Murmurs Abdomen: Normal Bowel Sounds, Soft, No Tenderness, No Hepatosplenomegaly, No Masses Extremities: No Clubbing, No Cyanosis, Other (+2 pedal edema) Skin: No Rashes, No Significant Lesion Neuro: Normal Speech, Cranial Nerves 3-12 NL Psych/Mental Status: Mental Status NL, Mood NL Results Lab Laboratory Tests 04/18/20 05:20 A/P-Cardiology Admission Diagnosis Generalized weakness CHF CAD Acute on chronic renal insufficiency Assessment/Plan Generalized weakness, debility, receiving physical therapy. Hyperkalemia, I gave him Kayexalate, repeat metabolic profile in the morning Acute on chronic renal insufficiency probably worsening volume depletion with the nausea and vomiting. I will repeat metabolic profile in the morning Dysphagia, nausea and vomiting with weight loss, status post endoscopy. Had gastroparesis and esophageal stricture, had balloon dilatation done. Managed by primary care team Chronic systolic and diastolic CHF. Echo of 02/19/20: LVEF 40-45%, dilated LA, mod to sev MR, AoV scl w/o stenosis, mod TR, PASP 35-40 mmHg. Echo of 03/18/20: LVEF 25-30%. Last echo 04/08/20: LVEF 30-35%, apical and anteroseptal akinesis, mod MR, mod TR, RVSP 26 mmHg - Life Vest in place Coronary artery disease with a history CABG with HUBBARD to LAD, saphenous VG to RCA, VG to diagonal artery, VG to first obtuse marginal artery, VG to second obtuse marginal artery in 1999. Mutiple subsequent PCIs. H/o RCA-SVG perforation on 11/28/18 at time of intervention for SVG occlusion by Dr Miranda. Last card cath on 11/29/18 (Dr Smith at [facility]): 40-50% LMCA, occluded LAD, patent LCX with occluded OMs, occluded RCA, patent HUBBARD-LAD, patent SVG-om, Patent SVG-RCA with patent distal stent (known to be Alp Xience 2.25x8 placed on 08/28/17). Maintained on ASA and Plavix Borderline hypotension, better after decreasing beta blockers. Continue to monitor Hyperlipidemia being treated with statin therapy, continue to monitor. Diabetes mellitus, type II. Managed by primary care team Tobaccoism consisting of smoking cigars. Advised smoking cessation Carotid arterial disease, mild, per ultrasonography of June 2017, continue to monitor as outpatient. Clinical Quality Measures DVT/VTE Risk/Contraindication: Risk Factor Score Per Nursin RFS Level Per Nursing on Admit: 4+=Very High HANS MIRANDA MD Apr 18, 2020 11:59
--- NOTE | 2020-04-18 13:30 | NUR ---
Pt drank all of ordered Kaexylate.
[2020-04-18] MEDS: NS IV 1000 ML 1,000 ML IV SCH (15:55)
[2020-04-18 17:13] VITALS: BP 101/60
[2020-04-18] MEDS: MELATONIN 3 MG TABLET PO PRN (20:34)
[2020-04-18] MEDS: ASPIRIN E.C. 81 MG (ECOTRIN) TAB PO SCH (20:34)
[2020-04-19] MEDS: CATHETER FLUSH 10 ML SYR IV SCH ×4 (00:02→21:59)
[2020-04-19] MEDS: METOCLOPRAMIDE INJ 10 MG/2 ML (REGLAN) IVP SCH ×4 (00:03→17:42)
[2020-04-19 04:54] LABS: BASOPHILS # (AUTO) 0.1 10^3/uL (0.0-0.1); BASOPHILS % (AUTO) 1 % (0-10); EOSINOPHILS # (AUTO) 0.3 10^3/uL (0.0-0.3); EOSINOPHILS % (AUTO) 3 % (0-10); HEMATOCRIT 30 % (40-54); HEMOGLOBIN 10.3 g/dL (13.3-17.7); LYMPHOCYTES # (AUTO) 0.9 10^3/uL (1.0-4.0); LYMPHOCYTES % (AUTO) 9 % (12-44); MEAN CORPUSCULAR HEMOGLOBIN 33 pg (25-34); MEAN CORPUSCULAR HGB CONC 34 g/dL (32-36); MEAN CORPUSCULAR VOLUME 98 fL (80-99); MEAN PLATELET VOLUME 8.8 fL (9.0-12.2); MONOCYTES # (AUTO) 0.9 10^3/uL (0.0-1.0); MONOCYTES % (AUTO) 10 % (0-12); NEUTROPHILS # (AUTO) 7.3 10^3/uL (1.8-7.8); NEUTROPHILS % (AUTO) 77 % (42-75); PLATELET COUNT 329 10^3/uL (130-400); WHITE BLOOD COUNT 9.4 10^3/uL (4.3-11.0)
[2020-04-19] MEDS: MULTIVIT W/MINERALS TAB (THERAGRAN M) PO SCH (05:46)
--- NOTE | 2020-04-19 05:48 | PM&R Progress Note ---
Subjective HPI/CC On Admission Date Seen by Provider: Apr 19, 2020 Time Seen by Provider: 09:00 Subjective/Events-last exam 04/19/20: Creatinine 1.57 Sodium level 130 Potassium 5.4 Kayexalate given yesterday Will need to go to skilled care because family cant take care of him 04/18/20: Called again when he couldn't find his call light and it was right next to him within reach Behaviors are occurring more and more often Kayexalate given for potassium 5.8 04/17/20: NS 500cc IVF given per Dr Ruth Salas lift needed earlier to get back into bed Slid down chair and called his who called nurse because he could not get his call light Patient is obviously unable to reside at home especially considering Josue lift needed at times and this issue with sliding down chair 04/16/20: Pt doing pretty well Had a controlled fall with respiratory therapy and slab off mill tender Potassium level 5.5 Sodium level 128 Swallowing better since EGD and dilatation 04/15/20: Pt doing pretty well Imdur will be changed to 9:00 in the morning from 3:00 Edema noted but it is stable Somewhat confused at times 04/14/20: Pt doing pretty well but still very declined Fluid restriction maintained and bowels will need more laxative He really needs to go to a penitentiary and he really appears to be a CHF hospice candidate 04/13/20: Sodium level 126 Gastroparesis was found on EGD so started on Reglan IV Q6hrs Dilated his esophagus also Labs remain stable 04/12/20: Sodium level 127 Hgb 10.4 EGD today NPO for now but he is hungry Fluid restriction and sodium tablets improving sodium level at 127 04/11/20: EGD in morning Nausea and vomiting continues daily Reglan given with good results BM x 2 today O2 maintained 04/10/20: Emesis today as he does a lot at home Sodium level is 124 Salt tablets started along with fluid restriction No BM for several days 04/09/20: Very debilitated Tires out easily Lifevest maintained No BM yesterday Wants to know his blood type and since he appears to be very pale and hgb is low will type and screen to prepare for transfusion if needed BNP is very elevated Stopping IVF Had N/V and given Reglan Patient has severe weakness Frequent breaks required Very debilitated Urine is concentrated so will start gentle IVF Dyspnea is severe Prognosis guarded Very debilitated Checked meds and labs Conferred with RN Reviewed therapy notes Review of Systems General: Fatigue, Malaise Pulmonary: Dyspnea Objective Exam Vital Signs Vital Signs Date Time Temp Pulse Resp B/P (MAP) Pulse Ox O2 Delivery O2 Flow Rate FiO2 04/19/20 21:50 94 Room Air 04/19/20 17:57 36.7 81 20 138/74 (95) Capillary Refill : Less Than 3 Seconds General Appearance: No Apparent Distress, WD/WN, Chronically ill HEENT: PERRL/EOMI, Normal ENT Inspection, Pharynx Normal Neck: Full Range of Motion, Normal Inspection, Non Tender, Supple, Carotid Bruit Respiratory: Chest Non Tender, Lungs Clear, No Accessory Muscle Use, No Respiratory Distress, Decreased Breath Sounds Cardiovascular: Regular Rate, Rhythm, No Edema, No Gallop, No JVD, No Murmur, Normal Peripheral Pulses Gastrointestinal: Normal Bowel Sounds, No Organomegaly, No Pulsatile Mass, Non Tender, Soft Back: Normal Inspection, No CVA Tenderness, No Vertebral Tenderness Extremity: Normal Capillary Refill, Normal Inspection, Normal Range of Motion, Non Tender, No Calf Tenderness, No Pedal Edema Neurologic/Psychiatric: Alert, Oriented x3, No Motor/Sensory Deficits, crown presser II- XII Norm as Tested, Abnormal Gait, Depressed Affect, Motor Weakness (generalized all extremities) Skin: Normal Color, Warm/Dry Lymphatic: No Adenopathy Results/Procedures Lab Patient resulted labs reviewed. FIM Transfers Therapy Code Descriptions/Definitions Functional [place] Measure: 0=Not Assessed/NA 4=Minimal Assistance 1=Total Assistance 5=Supervision or Setup 2=Maximal Assistance 6=Modified [place] 3=Moderate Assistance 7=Complete IndependenceSCALE: Activities may be completed with or without assistive devices. 2-Uurwjkjivo-scttnjh completes the activity by him/herself with no assistance from a helper. 5-Set-up or Clean-up Assistance-helper sets up or cleans up; patient completes activity. [place] assists only prior to or following the activity. 4-Supervision or Touching Assistance-helper provides verbal cues and/or touching/steadying and/or contact guard assistance as patient completes activity. Assistance may be provided throughout the activity or intermittently. 3-Partial/Moderate Assistance-helper does LESS THAN HALF the effort. [place] lifts, holds or supports trunk or limbs, but provides less than half the effort. 2-Substantial/Maximal Assistance-helper does MORE THAN HALF the effort. [place] lifts or holds trunk or limbs and provides more than half the effort. 9-Csynzlsgm-myalke does ALL the effort. Patient does none of the effort to complete the activity. Or, the assistance of 2 or more helpers is required for the patient to complete the activity. If activity was not attempted, code reason: 7-Patient Refused. 9-Not Applicable-not attempted and the patient did not perform the activity before the current illness, exacerbation or injury. 10-Not Attempted due to Environmental Limitations-(lack of equipment, weather restraints, etc.). 88-Not Attempted due to Medical Conditions or Safety Concerns. Roll Left to Right (QC): 4 Sit to Lying (QC): 3 Sit to Stand (QC): 2 Chair/Qkl-fy-Qpqia Xfer(QC): 2 Car Transfer (QC): 88 (Pt unable to safetly attempt this visit. Will attempt tomorrow. ) Gait Training Does the Patient Walk?: Yes Distance: 15'x2 Walk 10 feet (QC): 4 Walk 50 ft with 2 Turns(QC): 4 Walk 150 ft (QC): 88 Walking 10ft/uneven surface-QC: 88 Gait Persons Needed: 1 (plus w/c assist and IV assist) Gait Assistive Device: FWW Wheelchair Training Does the Pt Use a Wheelchair?: Yes Distance: 50 ft Wheel 50 ft with 2 turns (QC): 3 Wheel 150 ft (QC): 3 Type of Wheelchair: Manual Stair Training 1 Step (curb) (QC): 88 4 Steps (QC): 88 12 Steps (QC): 88 Balance Picking up an Object (QC): 88 ADL-Treatment Eating (QC): 6 Oral Hygiene (QC): 6 Bathing Location: L Arm, R Arm, L Upper Leg, R Upper Leg, L Lower Leg (including foot), R Lower Leg (including foot), Chest, Abdomen Shower/Bathe Self (QC): 3 Upper Body Dressing (QC): 2 Lower Body Dressing (QC): 2 On/Off Footwear (QC): 2 Toileting Hygiene (QC): 3 Toilet Transfer (QC): 3 Assessment/Plan Assessment and Plan Assess & Plan/Chief Complaint Assessment: Debility with myopathy CHF on lifevest HTN CRI HTN HLP Smoker ETOHism Hypoxia Hyponatremia COPD Plan: Monitor creatinine Cardiology consult Monitor pain IRF protocol 04/08/20: Very debilitated Work on stamina Maintain O2 IVF gentle for dehydration Monitor sodium level 04/09/20: Monitor sodium level Monitor creatinine Type and screen 04/10/20: Monitor emesis Monitor sodium level BM regimen 04/11/20: BM regimen successful O2 Monitor sodium level Very fragile and fatigued 04/12/20: Monitor Sodium EGD today Fluid restriction 04/13/20: Monitor sodium level Prognosis poor Likely will need penitentiary 04/14/20: Discuss dispo with family Prognosis poor 04/15/20: Supportive care O2 maintained Fluid restriction 04/16/20: Monitor for falls O2 sats monitoring Fluid restriction 04/17/20: Josue lift needed at times and slid half down chair and couldn't get to his call light right before I walked in Needs penitentiary 04/18/20: Needs penitentiary or hospice to home at [place] Prognosis poor 04/19/20: NHP will be necessary May be a hospice candidate in near future (1) Debility (2) Acute on chronic kidney failure (3) Alcohol dependence, daily use Status: Acute (4) HTN (hypertension) Status: Acute (5) CAD (coronary artery disease) (6) Hypokalemia (7) Status post fall Status: Acute (8) STEMI (ST elevation myocardial infarction) Status: Acute (9) Hypomagnesemia (10) Multifocal PVCs Status: Acute (11) PAD (peripheral artery disease) (12) Weakness Status: Acute (13) Renal insufficiency Status: Acute (14) CHF (congestive heart failure) Status: Acute CODI HERCULES DO Apr 19, 2020 05:48
[2020-04-19 05:57] LABS: POTASSIUM 5.4 MMOL/L (3.6-5.0)
[2020-04-19 05:58] LABS: CALCIUM 8.8 MG/DL (8.5-10.1)
[2020-04-19 05:59] LABS: TOTAL PROTEIN 6.4 GM/DL (6.4-8.2)
[2020-04-19 06:00] VITALS: BP 129/79
[2020-04-19 06:03] LABS: CREATININE SERUM 1.57 MG/DL (0.60-1.30)
--- NOTE | 2020-04-19 08:45 | Cardiology Progress Note ---
Subjective Date Seen by Provider: Apr 19, 2020 Time Seen by Provider: 08:40 Subjective/Events-last exam Patient is sitting up in bed, denies any chest pain or dyspnea. Review of Systems General: No Chills, No Night Sweats, No Fatigue, No Malaise, No Appetite, No Other HEENT: No Head Aches, No Visual Changes, No Eye Pain, No Ear Pain, No Dysphasia, No Sinus Congestion, No Post Nasal Drip, No Sore Throat, No Other Pulmonary: No Dyspnea, No Cough, No Pleuritic Chest Pain, No Other Cardiovascular: No: Chest Pain, Palpitations, Orthopnea, Paroxysmal Noc. Dyspnea, Edema, Lt Headedness, Other Objective-Cardiology Exam Last Set of Vital Signs Vital Signs 04/19/20 04/19/20 06:00 08:38 Temp 36.4 Pulse 68 Resp 20 B/P (MAP) 129/79 (96) Pulse Ox 95 O2 Delivery Room Air Capillary Refill : Less Than 3 Seconds I&O Intake and Output 04/19/20 00:00 Intake Total 920 ml Output Total 450 ml Balance 470 ml Intake Oral 920 ml Output Urine Total 450 ml # Voids 1 # Urine Diapers 2 General: Alert, Oriented X3, Cooperative HEENT: Atraumatic, PERRLA Neck: Supple, No JVD, No Thyromegaly Lungs: Clear to Auscultation, Normal Air Movement Heart: Regular Rate, Normal S1, Normal S2, No Murmurs Abdomen: Normal Bowel Sounds, Soft, No Tenderness, No Hepatosplenomegaly, No Masses Extremities: No Clubbing, No Cyanosis, Other (+1 pedal edema) Skin: No Rashes, No Significant Lesion Neuro: Normal Speech, Cranial Nerves 3-12 NL Psych/Mental Status: Mental Status NL, Mood NL Results Lab Laboratory Tests 04/19/20 04:45 A/P-Cardiology Admission Diagnosis Generalized weakness CHF CAD Acute on chronic renal insufficiency Assessment/Plan Generalized weakness, debility, receiving physical therapy. Hyperkalemia, received Kayexalate, continue to monitor. Acute on chronic renal insufficiency probably worsening volume depletion with the nausea and vomiting. I will repeat metabolic profile in the morning Dysphagia, nausea and vomiting with weight loss, status post endoscopy. Had gastroparesis and esophageal stricture, had balloon dilatation done. Managed by primary care team Chronic systolic and diastolic CHF. Echo of 02/19/20: LVEF 40-45%, dilated LA, mod to sev MR, AoV scl w/o stenosis, mod TR, PASP 35-40 mmHg. Echo of 03/18/20: LVEF 25-30%. Last echo 04/08/20: LVEF 30-35%, apical and anteroseptal akinesis, mod MR, mod TR, RVSP 26 mmHg - Life Vest in place Coronary artery disease with a history CABG with HUBBARD to LAD, saphenous VG to RCA, VG to diagonal artery, VG to first obtuse marginal artery, VG to second obtuse marginal artery in 1999. Mutiple subsequent PCIs. H/o RCA-SVG perforation on 11/28/18 at time of intervention for SVG occlusion by Dr Miranda. Last card cath on 11/29/18 (Dr Smith at [facility]): 40-50% LMCA, occluded LAD, patent LCX with occluded OMs, occluded RCA, patent HUBBARD-LAD, patent SVG-om, Patent SVG-RCA with patent distal stent (known to be Alp Xience 2.25x8 placed on 08/28/17). Maintained on ASA and Plavix Borderline hypotension, better after decreasing beta blockers. Continue to monitor Hyperlipidemia being treated with statin therapy, continue to monitor. Diabetes mellitus, type II. Managed by primary care team Tobaccoism consisting of smoking cigars. Advised smoking cessation Carotid arterial disease, mild, per ultrasonography of June 2017, continue to monitor as outpatient. Patient was seen and evaluated with Niyah, examination performed, management plan was discussed, agree with the current scribed note, I made few changes to the note using Italic font Patient was sitting in a recliner comfortably Still having hyperkalemia, will give another dose of Kayexalate Monitor electrolytes, monitor blood pressure Clinical Quality Measures DVT/VTE Risk/Contraindication: Risk Factor Score Per Nursin RFS Level Per Nursing on Admit: 4+=Very High NIYAH HOOPER Apr 19, 2020 8:45 am HANS MIRANDA MD Apr 19, 2020 11:49 am
[2020-04-19] MEDS: FUROSEMIDE 20 MG (LASIX) TAB PO SCH (08:48)
[2020-04-19] MEDS: CLOPIDOGREL 75 MG (PLAVIX) TABLET PO SCH (08:48)
[2020-04-19] MEDS: MAGNESIUM OXIDE (MAG-OX)400 MG TAB PO SCH (08:48)
[2020-04-19] MEDS: RANOLAZINE ER 500 MG TAB (RANEXA) PO SCH ×2 (08:48→21:48)
[2020-04-19] MEDS: ISOSORBIDE MONONITRATE 60 MG (IMDUR) TAB PO SCH (08:48)
[2020-04-19] MEDS: OMEGA 3 (FISH OIL) 1000 MG CAP PO SCH ×2 (08:48→17:42)
[2020-04-19] MEDS: FAMOTIDINE 20 MG (PEPCID) TABLET PO SCH ×2 (08:51→21:49)
[2020-04-19] MEDS: NS IV 1000 ML 1,000 ML IV SCH (08:51)
[2020-04-19] MEDS: SODIUM CHLORIDE 1 GM TABLET PO SCH ×2 (09:07→21:49)
[2020-04-19] MEDS: polyethylene glycoL POWDER 17 GM (MIRALAX) PACK PO SCH ×2 (09:08→21:53)
[2020-04-19] MEDS: DOCUSATE SODIUM 100 MG (COLACE) CAP PO SCH ×2 (09:08→21:54)
--- NOTE | 2020-04-19 09:44 | Occupational Ther Daily Note ---
OT Current Status-Daily Note Subjective Pt was in bed. Pt no c/o pain. Pt agreed to therapy. Mental Status/Objective Attachments: Other-See Comments (life vest) ADL-Treatment Pt was in bed upon arrival. Pt agreed to taking a sponge bath. Pt Min A lying supine in bed to EOB. Pt Max A x2 getting from EOB to recliner. Pt had LEAL doff briefs, performed upper body washing with set up. Pt used LH sponge to wash lower body and feet, cleansed perineal area. Pt has assist x1 to stand, assist x2 to cleanse buttocks. Pt threaded briefs/pants over feet, Max A to get R foot into briefs/pants, needed recovery breaks due to fatigue. Pt required Max A x2 to hike briefs/pants over hips. Pt had Mod A getting upper body clothing on when threading arms into jacket. Pt brushed hair. LEAL put compression socks on to reduce swelling in feet/ankles. Pt was in recliner call light/phone in reach. All needs met. Therapy Code Descriptions/Definitions Functional [place] Measure: 0=Not Assessed/NA 4=Minimal Assistance 1=Total Assistance 5=Supervision or Setup 2=Maximal Assistance 6=Modified [place] 3=Moderate Assistance 7=Complete IndependenceSCALE: Activities may be completed with or without assistive devices. 3-Taadctxkjl-pxzfwpw completes the activity by him/herself with no assistance from a helper. 5-Set-up or Clean-up Assistance-helper sets up or cleans up; patient completes activity. [place] assists only prior to or following the activity. 4-Supervision or Touching Assistance-helper provides verbal cues and/or touching/steadying and/or contact guard assistance as patient completes act ivity. Assistance may be provided throughout the activity or intermittently. 3-Partial/Moderate Assistance-helper does LESS THAN HALF the effort. [place] lifts, holds or supports trunk or limbs, but provides less than half the effort. 2-Substantial/Maximal Assistance-helper does MORE THAN HALF the effort. [place] lifts or holds trunk or limbs and provides more than half the effort. 7-Hmycptrwc-dtbhek does ALL the effort. Patient does none of the effort to complete the activity. Or, the assistance of 2 or more helpers is required for the patient to complete the activity. If activity was not attempted, code reason: 7-Patient Refused. 9-Not Applicable-not attempted and the patient did not perform the activity before the current illness, exacerbation or injury. 10-Not Attempted due to Environmental Limitations-(lack of equipment, weather restraints, etc.). 88-Not Attempted due to Medical Conditions or Safety Concerns. Eating (QC): 6 (per clincal judgment pt able to set up meal and use regular utensils to eat.) Oral Hygiene (QC): 6 (Per clinical judgment and previous OT sessions, pt has demonstrated ability to complete oral care sitting at sink by self.) Bathing Location: L Arm, R Arm, L Upper Leg, R Upper Leg, L Lower Leg (including foot), R Lower Leg (including foot), Chest, Abdomen, Perineal Area Shower/Bathe Self (QC): 1 Upper Body Dressing (QC): 2 Lower Body Dressing (QC): 1 On/Off Footwear: 2 Toileting Hygiene (QC): 1 (per clincal judgment assits x2 to complete toileting.) Toilet Transfer (QC): 1 (per clincal judgment assits x2 to complete toileting transfer. ) OT Short Term Goals Short Term Goals Time Frame: Apr 21, 2020 Eatin Oral hygiene: 6 Toileting hygiene: 3 Shower/bathe self: 3 Upper body dressin Lower body dressin Putting on/taking off footwear: 6 OT Topographical Drafter Goals [facility]sp Goals Time Frame: Apr 28, 2020 Eating (QC): 6 (met) Oral Hygiene (QC): 6 (met) Toileting Hygiene (QC): 6 (not met) Shower/Bathe Self (QC): 6 (not me) Upper Body Dressing (QC): 6 (not met) Lower Body Dressing (QC): 6 (not met) On/Off Footwear (QC): 6 (not met) Additional Goals: 1-Demonstrate ADL Tasks, 2-Verbalize Understanding, 3- ImproveStrength/[place] 1=Demonstrate adherence to instructed precautions during ADL tasks. 2=Patient will verbalize/demonstrate understanding of assistive devices/modifications for ADL. 3=Patient will improve strength/tolerance for activity to enable patient to perform ADL's. OT Education/Plan Problem List/Assessment Assessment: Decreased Activ Tolerance, Decreased UE Strength, Dependent Transfers, Impaired Funct Balance, Impaired I ADL's, Impaired Self-Care Skills Discharge Recommendations Plan/Recommendations: Continue POC Therapy Discharge Recommendati: Bath Aide, Post Acute OT Treatment Plan/Plan of Care Patient would benefit from OT for education, treatment and training to promote independence in ADL's, mobility, safety and/or upper extremity function for ADL's. Plan of Care: ADL Retraining, Caregiver Training, Concurrent Therapy, Functional Mobility, Group Exercise/Act as Ind, UE Funct Exercise/Act, UE Neuromus Re-Ed/Coord, W/C Management Training Treatment Duration: Apr 28, 2020 Frequency: At least 5 of 7 days/Wk (IRF) Estimated Hrs Per Day: 1.5 hours per day Agreement: Yes Rehab Potential: Fair Time/GCodes Start Time: 08:45 Stop Time: 09:45 Total Time Billed (hr/min): 60 Billed Treatment Time 1 visit- 4 ADL (60 mins) LYLY PHILLIPS Apr 19, 2020 09:44
[2020-04-19] MEDS: SENNA W/DOCUSATE (SENOKOT S) TABLET PO SCH ×2 (10:05→21:54)
--- NOTE | 2020-04-19 10:53 | Progress Note ---
MIKE ROBERTS MED STUDENT 04/19/20 1053: Progress Note S: No acute events overnight. Patient was asking when he can be discharged. He has no complaints at this time. O: Vitals stable Potassium down to 5.4 from 5.8 yesterday s/p Kayexylate yesterday Physical exam: patient appeared comfortable eating breakfast this morning, no significant findings on exam Life vest in place A/P: Plan for discharge tomorrow to SNF as patient has multiple co-morbidities and would have difficulty taking care of self at home Continue kayexylate treatment today, would repeat labs tomorrow before discharge to SNF SOCORRO HERCULES DO 04/20/20 0524: Supervisory-Addendum Brief Verification & Attestation Participated in pt care: history, MDM, physical Personally performed: exam, history, MDM, supervision of care Care discussed with: Medical Student Procedures: n/a Results interpretation: Verified all documentation Verification and Attestation of Medical Student E/M Service A medical student performed and documented this service in my presence. I reviewed and verified all information documented by the medical student and made modifications to such information, when appropriate. I personally performed the physical exam and medical decision making. Socorro Hercules, Apr 20, 2020,05:24 MIKE ROBERTS MED STUDENT Apr 19, 2020 10:53 SOCORRO HERCULES DO Apr 20, 2020 05:24
[2020-04-19] MEDS ORDERED: SOD POLYSTERENE 15 GM/60 ML (KAYEXALATE) UNIT DOSE PO NR (11:00)
--- NOTE | 2020-04-19 11:24 | NUR ---
This RN observed pt work w PT at this time in performing transfers. Over the weekend, pt would not stand on his legs well enough to transfer by staff, & pt was eased to the floor by RT & lab staff who were attempting to assist pt. (See note). Josue lift had to be used for transfers over the weekend d/t pt would not stand on his legs well enough to safely transfer. Upon observation at this time, pt is transferring w assist of Physical Therapy staff much better than he attempted over the weekend.
--- NOTE | 2020-04-19 12:10 | Physical Therapy Daily Note ---
PT Daily Note-Current Subjective Pt presents in recliner. Pt agrees to PT. Pt reports no pain. Appearance At conclusion of PT treatment pt returns to recliner where he has access to tray, call button, and all needs have been met. Mental Status Patient Orientation: Person, Place, Time, Eyes Open, Situation, [place] Transfers SCALE: Activities may be completed with or without assistive devices. 9-Elsxjruvkm-rzkxwzv completes the activity by him/herself with no assistance from a helper. 5-Set-up or Clean-up Assistance-helper sets up or cleans up; patient completes activity. [place] assists only prior to or following the activity. 4-Supervision or Touching Assistance-helper provides verbal cues and/or touching/steadying and/or contact guard assistance as patient completes activity. Assistance may be provided throughout the activity or intermittently. 3-Partial/Moderate Assistance-helper does LESS THAN HALF the effort. [place] lifts, holds or supports trunk or limbs, but provides less than half the effort. 2-Substantial/Maximal Assistance-helper does MORE THAN HALF the effort. [place] lifts or holds trunk or limbs and provides more than half the effort. 4-Ptnhdxeik-ahrqds does ALL the effort. Patient does none of the effort to complete the activity. Or, the assistance of 2 or more helpers is required for the patient to complete the activity. If activity was not attempted, code reason: 7-Patient Refused. 9-Not Applicable-not attempted and the patient did not perform the activity before the current illness, exacerbation or injury. 10-Not Attempted due to Environmental Limitations-(lack of equipment, weather restraints, etc.). 88-Not Attempted due to Medical Conditions or Safety Concerns. Roll Left & Right (QC): 6 Sit to Lying (QC): 4 Lying to Sitting/Side of Bed(Q: 3 Sit to Stand (QC): 3 Chair/Fjd-ow-Waivb Xfer(QC): 3 Toilet Transfer (QC): 3 Car Transfer (QC): 4 Pt required min assist with lying->EOB; used therapist's hand as handrail to pull torso up. Pt requires mod-assist with sit to stands and bed to chair transfers. Pt able to complete car transfer with SBA. Weight Bearing Full Weight Bearing Full Weight Bearing Gait Training Does the Patient Walk?: Yes Distance: 10', 20', 30'x2 Walk 10 feet (QC): 4 Walk 50 ft with 2 Turns(QC): 88 Walk 150 ft (QC): 88 Walking 10ft/uneven surface-QC: 4 Gait Persons Needed: 1 Gait Assistive Device: FWW Pt is limited in ambulation distance due to weakness; pt requires chair readily available and behind him as he suddenly sits when reached limit. Wheelchair Training Does the Pt Use a Wheelchair?: Yes Wheel 50 ft with 2 turns (QC): 3 Wheel 150 ft (QC): 3 Type of Wheelchair: Manual Min assist to supplement propulsion Stair Training 1 Step (curb) (QC): 88 4 Steps (QC): 88 12 Steps (QC): 88 Steps not performed for safety reasons due to increased weakness and risk of knees buckling and patient falling. Treatments Gait training and transfers Assessment Current Status: Good Progress Pt is able to walk with amble encouragement, but does not walk for and sits quickly when he fatigues. Pt improves his sit to stands when cued where to push off of and gaining momentum to his stand. Pt utilizes UE and pants legs to move LEs from side to side, such as in and out of bed or car. PT Short Term Goals Short Term Goals Time Frame: Apr 14, 2020 Sit to lyin Lying to sitting on side of be: 4 Sit to stand: 4 Walk 150 feet: 4 Wheel 150 feet: 6 PT Vehicle Controls Engineer Goals [facility] Goals PT [facility] Goals Time Frame: Apr 28, 2020 Roll Left & Right (QC): 6 Sit to Lying (QC): 6 Lying-Sitting on Side/Bed(QC): 6 Sit to Stand (QC): 6 Chair/Fvy-kj-Ovdkh Xfer(QC): 6 Toilet Transfer (QC): 6 Car Transfer (QC): 5 Does the Patient Walk: Yes Walk 10 feet (QC): 6 Walk 50ft with 2 Turns (QC): 6 Walk 150 ft (QC): 6 Walking 10ft on Uneven Surface: 5 1 Step (curb) (QC): 5 4 Steps (QC): 4 12 Steps (QC): 10 Picking up an Object (QC): 3 Wheel 50 feet with 2 turns (QC: 6 Wheel 150 feet: 6 PT Plan Problem List Problem List: Activity Tolerance, Functional Strength, Safety, Balance, Gait, Transfer, Bed Mobility, ROM Treatment/Plan Treatment Plan: Continue Plan of Care Treatment Plan: Bed Mobility, Education, Functional Activity [place], Functional Strength, Group Therapy, Gait, Safety, Therapeutic Exercise, Transfers Treatment Duration: Apr 28, 2020 Frequency: At least 5 of 7 days/Wk (IRF) Estimated Hrs Per Day: 1.5 hours per day Patient and/or Family Agrees t: Yes Safety Risks/Education Patient Education: Gait Training, Transfer Techniques, Correct Positioning, W/C Management, Safety Issues Teaching Recipient: Patient Teaching Methods: Demonstration, Discussion Response to Teaching: Reinforcement Needed Time/GCodes Time In: 1100 Time Out: 1200 Total Billed Treatment Time: 60 Total Billed Treatment 1 visit GT 30' FA 30' RAFFAELE SANTOS PT Apr 19, 2020 12:10
--- NOTE | 2020-04-19 14:36 | Therapy Group Daily Note ---
Therapy Daily Group Note Patient Education Topic Other List Below (memory) Session Ratio (pt:therapist): 4:1 Goal of Session: Memory Strategies Goal Met for this Session: Yes Pt Benefit of Group: Contributions to Others, Improved Cognition, Recognition of Peers, Socialization Other/Notes Pt propelled w/c to [facility] for OT/PT group. Group consisted in introductions (name, place living, favorite [place] memory), socialization, memory activity and STM education. Pt introduced self appropriately and actively listened to peers. Pt contributed to peer conversations and topics discussed in group. Pt able to demonstrate understanding of educational topic by giving personal strategies. Pt participated in memory activity appropriately and was able to match 1 out of 2. After session, pt lying in bed with call light/phone in reach. All needs met in room. Start Time: 13:00 Stop Time: 14:15 Total Billed Treatment Time: 75 Total Billed Treatment 1-GRP LYLY PHILLIPS Apr 19, 2020 14:36
[2020-04-19 17:57] VITALS: BP 138/74
--- NOTE | 2020-04-19 19:24 | NUR ---
bedside report received from DANA ODONNELL, assume care of pt
[2020-04-19 21:40] VITALS: BP 110/58
[2020-04-19] MEDS: ASPIRIN E.C. 81 MG (ECOTRIN) TAB PO SCH (21:48)
--- NOTE | 2020-04-19 21:49 | NUR ---
pt refused Colace, miralax & Senokot, up to commode with 2 person assist & walker to have stool, had moderate black soft stool
[2020-04-19] MEDS: MELATONIN 3 MG TABLET PO PRN (21:50)
[2020-04-20] MEDS: METOCLOPRAMIDE INJ 10 MG/2 ML (REGLAN) IVP SCH ×2 (00:02→06:13)
[2020-04-20] MEDS: NS IV 1000 ML 1,000 ML IV SCH (00:50)
[2020-04-20 05:02] VITALS: BP 125/68
[2020-04-20] MEDS ORDERED: NF-NACL1GT PO (05:33)
[2020-04-20] MEDS ORDERED: METO5TAB2 PO (05:33)
[2020-04-20] MEDS ORDERED: ISM60TCR PO (05:33)
--- NOTE | 2020-04-20 05:34 | Discharge Inst-Skilled Nursing ---
Discharge Inst-Skilled NF Reconcile Patient Problems Problems Reviewed?: Yes Patient Instructions Patient Problems: CHF Angina CRI Hyponatremia Patient Instructions: Fluid restriction 1500cc/day Consult/Follow Up/Orders Skilled NF Admit to: Certification (SNF) I certify that SNF services are required to be given on an inpatient basis because of the above named patient's need for residential care on a continuing basis for the conditions(s) for which he/she was receiving inpatient hospital services prior to his/her transfer to the SNF. Jail Facility Order: Nursing Services, Line Servicer-Evaluate & Treat, Physical Therapy-Evaluate & Treat Oxygen Delivery Method: Room Air Discharge Diet: Other Diet (fluid restriction 1500 cc/day) Daily Activity as Tolerated: Yes New & Resume Previous Orders New Medications: Isosorbide Mononitrate (Isosorbide Mononitrate ER) 60 Mg Tab 60 MG PO DAILY for 30 Days, TAB Sodium Chloride (Sodium Chloride) 1 Gm Tab 1 GM PO BID for 30 Days, TAB Changed Medications: Metoclopramide HCl (Metoclopramide HCl) 5 Mg Tablet 5 MG PO QID PRN for NAUSEA/VOMITING-3RD LINE for 30 Days, TAB (Changed from: BID) Continued Medications: Acetaminophen (Acetaminophen Extra Strength) 500 Mg Tablet 1000 MG PO 0300 PRN for PAIN-MILD, TAB Aspirin (Aspirin EC) 81 Mg Tablet.dr 81 MG PO HS, TAB Atorvastatin Calcium (Atorvastatin Calcium) 40 Mg Tablet 40 MG PO Q48H, TAB Clopidogrel Bisulfate (Plavix) 75 Mg Tablet 75 MG PO DAILY, TAB Famotidine (Famotidine) 20 Mg Tablet 20 MG PO BID, TAB [Folic Acid] () 1 MG PO DAILY Furosemide (Furosemide) 40 Mg Tablet 20 MG PO MO,WE,FR, TAB Magnesium Oxide (Magnesium) 400 Mg Tablet 400 MG PO DAILY, TAB Metoprolol Tartrate (Metoprolol Tartrate) 50 Mg Tablet 50 MG PO BID, TAB Multivits,Ca,Min/Iron/FA/Lycop (Centrum Men's Tablet) 1 Each Tablet 1 TAB PO DAILY, TAB [place] 3 Polyunsat Fatty Acids (Fish Oil 1,000 mg Capsule) 1,000 Mg Cap 1000 MG PO BID, CAP Potassium Chloride (Potassium Chloride) 20 Meq Tab.er.prt 10 MEQ PO MON,WE,FR TAKES OF A 20NEQ TAB Ranolazine (Ranolazine ER) 1,000 Mg Tab.er.12h 1000 MG PO BID, TAB Thiamine HCl (Vitamin B-1) 100 Mg Tablet 100 MG PO DAILY, TAB Discontinued Medications: Isosorbide Mononitrate (Isosorbide Mononitrate ER) 120 Mg Tab.er.24h 120 MG PO 0300, TAB Socorro Perez Apr 20, 2020 05:33 SOCORRO PEREZ DO Apr 20, 2020 05:34
--- NOTE | 2020-04-20 05:36 | PM&R Progress Note ---
Subjective Subjective/Events-last exam 04/19/20: Creatinine 1.57 Sodium level 130 Potassium 5.4 Kayexalate given yesterday Will need to go to skilled care because family cant take care of him 04/18/20: Called again when he couldn't find his call light and it was right next to him within reach Behaviors are occurring more and more often Kayexalate given for potassium 5.8 04/17/20: NS 500cc IVF given per Dr Ruth Salas lift needed earlier to get back into bed Slid down chair and called his who called nurse because he could not get his call light Patient is obviously unable to reside at home especially considering Josue lift needed at times and this issue with sliding down chair 04/16/20: Pt doing pretty well Had a controlled fall with respiratory therapy and 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 Potassium level 5.5 Sodium level 128 Swallowing better since EGD and dilatation 04/15/20: Pt doing pretty well Imdur will be changed to 9:00 in the morning from 3:00 Edema noted but it is stable Somewhat confused at times 04/14/20: Pt doing pretty well but still very declined Fluid restriction maintained and bowels will need more laxative He really needs to go to a chcf and he really appears to be a CHF hospice candidate 04/13/20: Sodium level 126 Gastroparesis was found on EGD so started on Reglan IV Q6hrs Dilated his esophagus also Labs remain stable 04/12/20: Sodium level 127 Hgb 10.4 EGD today NPO for now but he is hungry Fluid restriction and sodium tablets improving sodium level at 127 04/11/20: EGD in morning Nausea and vomiting continues daily Reglan given with good results BM x 2 today O2 maintained 04/10/20: Emesis today as he does a lot at home Sodium level is 124 Salt tablets started along with fluid restriction No BM for several days 04/09/20: Very debilitated Tires out easily Lifevest maintained No BM yesterday Wants to know his blood type and since he appears to be very pale and hgb is low will type and screen to prepare for transfusion if needed BNP is very elevated Stopping IVF Had N/V and given Reglan Patient has severe weakness Frequent breaks required Very debilitated Urine is concentrated so will start gentle IVF Dyspnea is severe Prognosis guarded Very debilitated Checked meds and labs Conferred with BELLE Reviewed therapy notes Objective Exam Vital Signs Vital Signs Date Time Temp Pulse Resp B/P (MAP) Pulse Ox O2 Delivery O2 Flow Rate FiO2 04/20/20 05:02 36.9 90 20 125/68 (87) 93 Room Air Capillary Refill : Less Than 3 Seconds General Appearance: No Apparent Distress, WD/WN, Chronically ill HEENT: PERRL/EOMI, Normal ENT Inspection, Pharynx Normal Neck: Full Range of Motion, Normal Inspection, Non Tender, Supple, Carotid Bruit Respiratory: Chest Non Tender, Lungs Clear, No Accessory Muscle Use, No Respiratory Distress, Decreased Breath Sounds Cardiovascular: Regular Rate, Rhythm, No Edema, No Gallop, No JVD, No Murmur, Normal Peripheral Pulses Gastrointestinal: Normal Bowel Sounds, No Organomegaly, No Pulsatile Mass, Non Tender, Soft Back: Normal Inspection, No CVA Tenderness, No Vertebral Tenderness Extremity: Normal Capillary Refill, Normal Inspection, Normal Range of Motion, Non Tender, No Calf Tenderness, No Pedal Edema Neurologic/Psychiatric: Alert, Oriented x3, No Motor/Sensory Deficits, 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 FIM Transfers Therapy Code Descriptions/Definitions Functional [place] Measure: 0=Not Assessed/NA 4=Minimal Assistance 1=Total Assistance 5=Supervision or Setup 2=Maximal Assistance 6=Modified [place] 3=Moderate Assistance 7=Complete IndependenceSCALE: Activities may be completed with or without assistive devices. 3-Abxbcankoj-maishbq completes the activity by him/herself with no assistance from a helper. 5-Set-up or Clean-up Assistance-helper sets up or cleans up; patient completes activity. [place] assists only prior to or following the activity. 4-Supervision or Touching Assistance-helper provides verbal cues and/or touching/steadying and/or contact guard assistance as patient completes activity. Assistance may be provided throughout the activity or intermittently. 3-Partial/Moderate Assistance-helper does LESS THAN HALF the effort. [place] lifts, holds or supports trunk or limbs, but provides less than half the effort. 2-Substantial/Maximal Assistance-helper does MORE THAN HALF the effort. [place] lifts or holds trunk or limbs and provides more than half the effort. 0-[id number]-qtnkvm does ALL the effort. Patient does none of the effort to complete the activity. Or, the assistance of 2 or more helpers is required for the patient to complete the activity. If activity was not attempted, code reason: 7-Patient Refused. 9-Not Applicable-not attempted and the patient did not perform the activity before the current illness, exacerbation or injury. 10-Not Attempted due to Environmental Limitations-(lack of equipment, weather restraints, etc.). 88-Not Attempted due to Medical Conditions or Safety Concerns. Roll Left to Right (QC): 6 Sit to Lying (QC): 4 Sit to Stand (QC): 3 Chair/Gjc-uh-Jocvo Xfer(QC): 3 Car Transfer (QC): 4 Gait Training Does the Patient Walk?: Yes Distance: 10', 20', 30'x2 Walk 10 feet (QC): 4 Walk 50 ft with 2 Turns(QC): 88 Walk 150 ft (QC): 88 Walking 10ft/uneven surface-QC: 4 Gait Persons Needed: 1 Gait Assistive Device: FWW Wheelchair Training Does the Pt Use a Wheelchair?: Yes Distance: 50 ft Wheel 50 ft with 2 turns (QC): 3 Wheel 150 ft (QC): 3 Type of Wheelchair: Manual Stair Training 1 Step (curb) (QC): 88 4 Steps (QC): 88 12 Steps (QC): 88 Balance Picking up an Object (QC): 88 ADL-Treatment Eating (QC): 6 (per clincal judgment pt able to set up meal and use regular utensils to eat.) Oral Hygiene (QC): 6 (Per clinical judgment and previous OT sessions, pt has demonstrated ability to complete oral care sitting at sink by self.) Bathing Location: L Arm, R Arm, L Upper Leg, R Upper Leg, L Lower Leg (including foot), R Lower Leg (including foot), Chest, Abdomen, Perineal Area Shower/Bathe Self (QC): 1 Upper Body Dressing (QC): 2 Lower Body Dressing (QC): 1 On/Off Footwear (QC): 2 Toileting Hygiene (QC): 1 (per clincal judgment assits x2 to complete toileting.) Toilet Transfer (QC): 1 (per clincal judgment assits x2 to complete zoey gallego. ) Assessment/Plan Assessment and Plan Assess & Plan/Chief Complaint Assessment: Debility with myopathy CHF on lifevest HTN CRI HTN HLP Smoker ETOHism Hypoxia Hyponatremia COPD Plan: Monitor creatinine Cardiology consult Monitor pain IRF protocol 04/08/20: Very debilitated Work on stamina Maintain O2 IVF gentle for dehydration Monitor sodium level 04/09/20: Monitor sodium level Monitor creatinine Type and screen 04/10/20: Monitor emesis Monitor sodium level BM regimen 04/11/20: BM regimen successful O2 Monitor sodium level Very fragile and fatigued 04/12/20: Monitor Sodium EGD today Fluid restriction 04/13/20: Monitor sodium level Prognosis poor Likely will need chcf 04/14/20: Discuss dispo with family Prognosis poor 04/15/20: Supportive care O2 maintained Fluid restriction 04/16/20: Monitor for falls O2 sats monitoring Fluid restriction 04/17/20: Josue lift needed at times and slid half down chair and couldn't get to his call light right before I walked in Needs chcf 04/18/20: Needs chcf or hospice to home at [place] Prognosis poor 04/19/20: NHP will be necessary May be a hospice candidate in near future (1) Debility (2) Acute on chronic kidney failure (3) Alcohol dependence, daily use Status: Acute (4) HTN (hypertension) Status: Acute (5) CAD (coronary artery disease) (6) Hypokalemia (7) Status post fall Status: Acute (8) STEMI (ST elevation myocardial infarction) Status: Acute (9) Hypomagnesemia (10) Multifocal PVCs Status: Acute (11) PAD (peripheral artery disease) (12) Weakness Status: Acute (13) Renal insufficiency Status: Acute (14) CHF (congestive heart failure) Status: Acute CODI HERCULES DO Apr 20, 2020 05:36
[2020-04-20] MEDS: CATHETER FLUSH 10 ML SYR IV SCH (06:13)
[2020-04-20] MEDS: MULTIVIT W/MINERALS TAB (THERAGRAN M) PO SCH (06:13)
[2020-04-20] MEDS: RANOLAZINE ER 500 MG TAB (RANEXA) PO SCH (07:37)
[2020-04-20] MEDS: ISOSORBIDE MONONITRATE 60 MG (IMDUR) TAB PO SCH (07:37)
[2020-04-20] MEDS: CLOPIDOGREL 75 MG (PLAVIX) TABLET PO SCH (07:37)
[2020-04-20] MEDS: DOCUSATE SODIUM 100 MG (COLACE) CAP PO SCH (07:37)
[2020-04-20] MEDS: MAGNESIUM OXIDE (MAG-OX)400 MG TAB PO SCH (07:37)
[2020-04-20] MEDS: polyethylene glycoL POWDER 17 GM (MIRALAX) PACK PO SCH (07:38)
[2020-04-20] MEDS: SODIUM CHLORIDE 1 GM TABLET PO SCH (07:46)
[2020-04-20] MEDS: OMEGA 3 (FISH OIL) 1000 MG CAP PO SCH (07:46)
[2020-04-20] MEDS: SENNA W/DOCUSATE (SENOKOT S) TABLET PO SCH (07:47)
--- NOTE | 2020-04-20 08:30 | Discharge Summary ---
Diagnosis/Chief Complaint Date of Admission Apr 07, 2020 at 09:45 Date of Discharge Discharge Date: Apr 20, 2020 Discharge Diagnosis Assessment: Debility with myopathy CHF on lifevest HTN CRI HTN HLP Smoker ETOHism Hypoxia Hyponatremia COPD Plan: Monitor creatinine Cardiology consult Monitor pain IRF protocol 04/08/20: Very debilitated Work on stamina Maintain O2 IVF gentle for dehydration Monitor sodium level 04/09/20: Monitor sodium level Monitor creatinine Type and screen 04/10/20: Monitor emesis Monitor sodium level BM regimen 04/11/20: BM regimen successful O2 Monitor sodium level Very fragile and fatigued 04/12/20: Monitor Sodium EGD today Fluid restriction 04/13/20: Monitor sodium level Prognosis poor Likely will need retirement 04/14/20: Discuss dispo with family Prognosis poor 04/15/20: Supportive care O2 maintained Fluid restriction 04/16/20: Monitor for falls O2 sats monitoring Fluid restriction 04/17/20: Josue lift needed at times and slid half down chair and couldn't get to his call light right before I walked in Needs retirement 04/18/20: Needs retirement or hospice to home at [place] Prognosis poor 04/19/20: NHP will be necessary May be a hospice candidate in near future (1) Debility (2) Acute on chronic kidney failure (3) Alcohol dependence, daily use Status: Acute (4) HTN (hypertension) Status: Acute (5) CAD (coronary artery disease) (6) Hypokalemia (7) Status post fall Status: Acute (8) STEMI (ST elevation myocardial infarction) Status: Acute (9) Hypomagnesemia (10) Multifocal PVCs Status: Acute (11) PAD (peripheral artery disease) (12) Weakness Status: Acute (13) Renal insufficiency Status: Acute (14) CHF (congestive heart failure) Status: Acute Discharge Summary Discharge Physical Examination Allergies: Coded Allergies: Penicillins (Verified Allergy, Unknown, 03/18/20) nitroglycerin (Verified Allergy, Unknown, 03/18/20) Vitals & I&Os Vital Signs Date Time Temp Pulse Resp B/P (MAP) Pulse Ox O2 Delivery O2 Flow Rate FiO2 04/20/20 11:10 36.9 90 20 125/68 93 Room Air Hospital Course Was the Problem List Reviewed?: Yes Hospital course: Pt had a two week hospital course in rehab after being admitted from home after home health recommended. He was able to be weaned off oxygen but had such difficulty due to ischemic cardiomyopathy and COPD to have any type of recovery at all. Chronic renal insufficiency and hyponatremia required aggressive treatment by cardiology and internal medicine. Overall he had no significant decompensation but overall prognosis remains very poor due to his chronic de bility and overall will need close follow-up with PCP at the retirement at [facility]. Labs (last 24 hrs) Laboratory Tests 04/07/20 09:45: Lab Scanned Report Referred Lab Report 04/07/20 12:27: White Blood Count 7.6, Red Blood Count 3.36L, Hemoglobin 11.3L, Hematocrit 33L, Mean Corpuscular Volume 99, Mean Corpuscular Hemoglobin 34, Mean Corpuscular Hemoglobin Concent 34, Red Cell Distribution Width 13.5, Platelet Count 339, Mean Platelet Volume 9.1, Immature Granulocyte % (Auto) 0, Neutrophils (%) (Auto) 80H, Lymphocytes (%) (Auto) 9L, Monocytes (%) (Auto) 8, Eosinophils (%) (Auto) 2, Basophils (%) (Auto) 1, Neutrophils # (Auto) 6.0, Lymphocytes # (Auto) 0.7L, Monocytes # (Auto) 0.6, Eosinophils # (Auto) 0.1, Basophils # (Auto) 0.0, Immature Granulocyte # (Auto) 0.0, Sodium Level 127L, Potassium Level 5.4H, Chloride Level 91L, Carbon Dioxide Level 28, Anion Gap 8, Blood Urea Nitrogen 2 1H, Creatinine 1.50H, Estimat Glomerular Filtration Rate 45, BUN/Creatinine Ratio 14, Glucose Level 101, Calcium Level 9.2, Corrected Calcium 9.7, Total Bilirubin 2.7H, Aspartate Amino Transf (AST/SGOT) 58H, Alanine Aminotransferase (ALT/SGPT) 26, Alkaline Phosphatase 219H, Total Protein 7.1, Albumin 3.4 04/08/20 06:11: White Blood Count 7.2, Red Blood Count 3.14L, Hemoglobin 10.5L, Hematocrit 31L, Mean Corpuscular Volume 98, Mean Corpuscular Hemoglobin 33, Mean Corpuscular Hemoglobin Concent 34, Red Cell Distribution Width 13.6, Platelet Count 275, Mean Platelet Volume 9.0, Immature Granulocyte % (Auto) 0, Neutrophils (%) (Auto) 74, Lymphocytes (%) (Auto) 11L, Monocytes (%) (Auto) 11, Eosinophils (%) (Auto) 3, Basophils (%) (Auto) 1, Neutrophils # (Auto) 5.3, Lymphocytes # (Auto) 0.8L, Monocytes # (Auto) 0.8, Eosinophils # (Auto) 0.2, Basophils # (Auto) 0.0, Immature Granulocyte # (Auto) 0.0, Sodium Level 125*L, Potassium Level 5.2H, Chloride Level 90L, Carbon Dioxide Level 26, Anion Gap 9, Blood Urea Nitrogen 23H, Creatinine 1.49H, Estimat Glomerular Filtration Rate 46, BUN/Creatinine Ratio 15, Glucose Level 97, Calcium Level 8.6, Corrected Calcium 9.5, Total Bilirubin 2.1H, Aspartate Amino Transf (AST/SGOT) 48H, Alanine Aminotransferase (ALT/SGPT) 23, Alkaline Phosphatase 196H, Total Protein 6.2L, Albumin 2.9L 04/09/20 04:10: Sodium Level 126L, Potassium Level 5.0, Chloride Level 92L, Carbon Dioxide Level 23, Anion Gap 11, Blood Urea Nitrogen 20H, Creatinine 1.39H, Estimat Glomerular Filtration Rate 49, BUN/Creatinine Ratio 14, Glucose Level 100, Calcium Level 8.5, B-Type Natriuretic Peptide 1903.1H 04/10/20 06:55: Sodium Level 124*L, Potassium Level 4.9, Chloride Level 90L, Carbon Dioxide Level 24, Anion Gap 10, Blood Urea Nitrogen 18, Creatinine 1.38H, Estimat Glomerular Filtration Rate 50, BUN/Creatinine Ratio 13, Glucose Level 100, Ca lcium Level 8.7 04/10/20 13:55: Urine Color BROWNH, Urine Clarity SL CLOUDY, Urine pH 5.5, Urine Specific [place] >=1.030, Urine Protein 1+H, Urine Glucose (UA) NEGATIVE, Urine Ketones TRACEH, Urine Nitrite POSITIVEH, Urine Bilirubin 2+H, Urine Urobilinogen 1.0, Urine Leukocyte Esterase NEGATIVE, Urine RBC (Auto) NEGATIVE, Urine RBC NONE, Urine WBC 0-2, Urine Crystals NONE, Urine Bacteria MODERATEH, Urine Casts NONE, Urine Mucus MODERATEH, Urine Culture Indicated YES, Urine Random Sodium 23 04/11/20 04:57: Sodium Level 127L, Potassium Level 4.8, Chloride Level 93L, Carbon Dioxide Level 23, Anion Gap 11, Blood Urea Nitrogen 18, Creatinine 1.42H, Estimat Glomerular Filtration Rate 48, BUN/Creatinine Ratio 13, Glucose Level 96, Calcium Level 8.6 04/11/20 11:14: Coronavirus (COVID-19)(PCR) Negative, Coronavirus 2019 (SIA) Negative 04/12/20 05:27: White Blood Count 7.4, Red Blood Count 3.11L, Hemoglobin 10.4L, Hematocrit 30L, Mean Corpuscular Volume 97, Mean Corpuscular Hemoglobin 33, Mean Corpuscular Hemoglobin Concent 34, Red Cell Distribution Width 13.9, Platelet Count 309, Mean Platelet Volume 9.2, Immature Granulocyte % (Auto) 0, Neutrophils (%) (Auto) 75, Lymphocytes (%) (Auto) 11L, Monocytes (%) (Auto) 10, Eosinophils (%) (Auto) 3, Basophils (%) (Auto) 1, Neutrophils # (Auto) 5.5, Lymphocytes # (Auto) 0.8L, Monocytes # (Auto) 0.7, Eosinophils # (Auto) 0.2, Basophils # (Auto) 0.1, Immature Granulocyte # (Auto) 0.0, Sodium Level 127L, Potassium Level 4.9, Chloride Level 94L, Carbon Dioxide Level 24, Anion Gap 9, Blood Urea Nitrogen 16, Creatinine 1.33H, Estimat Glomerular Filtration Rate 52, BUN/Creatinine Ratio 12, Glucose Level 94, Calcium Level 8.5, Corrected Calcium 9.3, Total Bilirubin 1.7H, Aspartate Amino Transf (AST/SGOT) 47H, Alanine Aminotransferase (ALT/SGPT) 22, Alkaline Phosphatase 215H, Total Protein 6.2L, Albumin 3.0L 04/13/20 05:20: Sodium Level 126L, Potassium Level 5.1H, Chloride Level 94L, Carbon Dioxide Level 20L, Anion Gap 12, Blood Urea Nitrogen 18, Creatinine 1.42H, Estimat Glomerular Filtration Rate 48, BUN/Creatinine Ratio 13, Glucose Level 102, Calcium Level 8.9 04/13/20 10:39: Potassium Level 5.0 04/14/20 04:35: Sodium Level 127L, Potassium Level 5.0, Chloride Level 94L, Carbon Dioxide Level 23, Anion Gap 10, Blood Urea Nitrogen 22H, Creatinine 1.56H, Estimat Glomerular Filtration Rate 43, BUN/Creatinine Ratio 14, Glucose Level 101, Calcium Level 8.7 04/16/20 06:22: White Blood Count 9.3, Red Blood Count 3.17L, Hemoglobin 10.7L, Hematocrit 31L, Mean Corpuscular Volume 98, Mean Corpuscular Hemoglobin 34, Mean Corpuscular Hemoglobin Concent 34, Red Cell Distribution Width 14.1, Platelet Count 325, Mean Platelet Volume 9.1, Immature Granulocyte % (Auto) 0, Neutrophils (%) (Auto) 76H, Lymphocytes (%) (Auto) 10L, Monocytes (%) (Auto) 9, Eosinophils (%) (Auto) 3, Basophils (%) (Auto) 1, Neutrophils # (Auto) 7.1, Lymphocytes # (Auto) 0.9L, Monocytes # (Auto) 0.9, Eosinophils # (Auto) 0.3, Basophils # (Auto) 0.1, Immature Granulocyte # (Auto) 0.0, Sodium Level 128L, Potassium Level 5.5H, Chloride Level 94L, Carbon Dioxide Level 22, Anion Gap 12, Blood Urea Nitrogen 23H, Creatinine 1.64H, Estimat Glomerular Filtration Rate 41, BUN/Creatinine Ratio 14, Glucose Level 107H, Calcium Level 9.1, Corrected Calcium 9.8, Total Bilirubin 1.9H, Aspartate Amino Transf (AST/SGOT) 37H, Alanine Aminotransferase (ALT/SGPT) 21, Alkaline Phosphatase 229H, Total Protein 6.8, Albumin 3.1L 04/16/20 09:24: Glucometer 115H 04/18/20 05:20: White Blood Count 9.9, Red Blood Count 3.17L, Hemoglobin 10.6L, Hematocrit 31L, Mean Corpuscular Volume 98, Mean Corpuscular Hemoglobin 33, Mean Corpuscular Hemoglobin Concent 34, Red Cell Distribution Width 14.2, Platelet Count 320, Mean Platelet Volume 9.1, Sodium Level 129L, Potassium Level 5.8H, Chloride Level 96L, Carbon Dioxide Level 21, Anion Gap 12, Blood Urea Nitrogen 24H, Creatinine 1.60H, Estimat Glomerular Filtration Rate 42, BUN/Creatinine Ratio 15, Glucose Level 108H, Calcium Level 8.9, Corrected Calcium 9.7, Total Bilirubin 2.0H, Aspartate Amino Transf (AST/SGOT) 36H, Alanine Aminotransferase (ALT/SGPT) 19, Alkaline Phosphatase 213H, Total Protein 6.6, Albumin 3.0L 04/19/20 04:45: White Blood Count 9.4, Red Blood Count 3.08L, Hemoglobin 10.3L, Hematocrit 30L, Mean Corpuscular Volume 98, Mean Corpuscular Hemoglobin 33, Mean Corpuscular Hemoglobin Concent 34, Red Cell Distribution Width 14.3, Platelet Count 329, Mean Platelet Volume 8.8L, Immature Granulocyte % (Auto) 1, Neutrophils (%) (Auto) 77H, Lymphocytes (%) (Auto) 9L, Monocytes (%) (Auto) 10, Eosinophils (%) (Auto) 3, Basophils (%) (Auto) 1, Neutrophils # (Auto) 7.3, Lymphocytes # (Auto) 0.9L, Monocytes # (Auto) 0.9, Eosinophils # (Auto) 0.3, Basophils # (Auto) 0.1, Immature Granulocyte # (Auto) 0.1, Sodium Level 130L, Potassium Level 5.4H, Chloride Level 96L, Carbon Dioxide Level 23, Anion Gap 11, Blood Urea Nitrogen 24H, Creatinine 1.57H, Estimat Glomerular Filtration Rate 43, BUN/Creatinine Ratio 15, Glucose Level 123H, Calcium Level 8.8, Corrected Calcium 9.6, Total Bilirubin 2.0H, Aspartate Amino Transf (AST/SGOT) 35H, Alanine Aminotransferase (ALT/SGPT) 19, Alkaline Phosphatase 201H, Total Protein 6.4, Albumin 3.0L 04/20/20 08:02: Sodium Level 133L, Potassium Level 5.0, Chloride Level 95L, Carbon Dioxide Level 25, Anion Gap 13, Blood Urea Nitrogen 23H, Creatinine 1.53H, Estimat Glomerular Filtration Rate 44, BUN/Creatinine Ratio 15, Glucose Level 124H, Calcium Level 9.0 04/20/20 10:31: Coronavirus 2019 (SIA) Negative Microbiology 04/11/20 MRSA Screen - Final, Complete MRSA not isolated 04/10/20 Urine Culture - Final, Complete 3 or more isolates Pending Labs Microbiology Date/Time Source Procedure Growth Status 04/11/20 11:13 Nasal MRSA Screen - Final MRSA not isolated Complete 04/10/20 13:55 Urine Voided Urine Urine Culture - Final 3 or more isolates Complete Laboratory Tests 04/07/20 09:45: Lab Scanned Report Referred Lab Report 04/07/20 12:27: White Blood Count 7.6, Red Blood Count 3.36, Hemoglobin 11.3, Hematocrit 33, Mean Corpuscular Volume 99, Mean Corpuscular Hemoglobin 34, Mean Corpuscular Hemoglobin Concent 34, Red Cell Distribution Width 13.5, Platelet Count 339, Mean Platelet Volume 9.1, Immature Granulocyte % (Auto) 0, Neutrophils (%) (Auto) 80, Lymphocytes (%) (Auto) 9, Monocytes (%) (Auto) 8, Eosinophils (%) (Auto) 2, Basophils (%) (Auto) 1, Neutrophils # (Auto) 6.0, Lymphocytes # (Auto) 0.7, Monocytes # (Auto) 0.6, Eosinophils # (Auto) 0.1, Basophils # (Auto) 0.0, Immature Granulocyte # (Auto) 0.0, Sodium Level 127, Potassium Level 5.4, Chloride Level 91, Carbon Dioxide Level 28, Anion Gap 8, Blood Urea Nitrogen 21, Creatinine 1.50, Estimat Glomerular Filtration Rate 45, BUN/Creatinine Ratio 14, Glucose Level 101, Calcium Level 9.2, Corrected Calcium 9.7, Total Bilirubin 2.7, Aspartate Amino Transf (AST/SGOT) 58, Alanine Aminotransferase (ALT/SGPT) 26, Alkaline Phosphatase 219, Total Protein 7.1, Albumin 3.4 04/08/20 06:11: White Blood Count 7.2, Red Blood Count 3.14, Hemoglobin 10.5, Hematocrit 31, Mean Corpuscular Volume 98, Mean Corpuscular Hemoglobin 33, Mean Corpuscular Hemoglobin Concent 34, Red Cell Distribution Width 13.6, Platelet Count 275, Mean Platelet Volume 9.0, Immature Granulocyte % (Auto) 0, Neutrophils (%) (Auto) 74, Lymphocytes (%) (Auto) 11, Monocytes (%) (Auto) 11, Eosinophils (%) (Auto) 3, Basophils (%) (Auto) 1, Neutrophils # (Auto) 5.3, Lymphocytes # (Auto) 0.8, Monocytes # (Auto) 0.8, Eosinophils # (Auto) 0.2, Basophils # (Auto) 0.0, Immature Granulocyte # (Auto) 0.0, Sodium Level 125, Potassium Level 5.2, Chloride Level 90, Carbon Dioxide Level 26, Anion Gap 9, Blood Urea Nitrogen 23, Creatinine 1.49, Estimat Glomerular Filtration Rate 46, BUN/Creatinine Ratio 15, Glucose Level 97, Calcium Level 8.6, Corrected Calcium 9.5, Total Bilirubin 2.1, Aspartate Amino Transf (AST/SGOT) 48, Alanine Aminotransferase (ALT/SGPT) 23, Alkaline Phosphatase 196, Total Protein 6.2, Albumin 2.9 04/09/20 04:10: Sodium Level 126, Potassium Level 5.0, Chloride Level 92, Carbon Dioxide Level 23, Anion Gap 11, Blood Urea Nitrogen 20, Creatinine 1.39, Estimat Glomerular Filtration Rate 49, BUN/Creatinine Ratio 14, Glucose Level 100, Calcium Level 8.5, B-Type Natriuretic Peptide 1903.1 04/10/20 06:55: Sodium Level 124, Potassium Level 4.9, Chloride Level 90, Carbon Dioxide Level 24, Anion Gap 10, Blood Urea Nitrogen 18, Creatinine 1.38, Estimat Glomerular Filtration Rate 50, BUN/Creatinine Ratio 13, Glucose Level 100, Calcium Level 8.7 04/10/20 13:55: Urine Color BROWN, Urine Clarity SL CLOUDY, Urine pH 5.5, Urine Specific [place] >=1.030, Urine Protein 1+, Urine Glucose (UA) NEGATIVE, Urine Ketones TRACE, Urine Nitrite POSITIVE, Urine Bilirubin 2+, Urine Urobilinogen 1.0, Urine Leukocyte Esterase NEGATIVE, Urine RBC (Auto) NEGATIVE, Urine RBC NONE, Urine WBC 0-2, Urine Crystals NONE, Urine Bacteria MODERATE, Urine Casts NONE, Urine Mucus MODERATE, Urine Culture Indicated YES, Urine Random Sodium 23 04/11/20 04:57: Sodium Level 127, Potassium Level 4.8, Chloride Level 93, Carbon Dioxide Level 23, Anion Gap 11, Blood Urea Nitrogen 18, Creatinine 1.42, Estimat Glomerular Filtration Rate 48, BUN/Creatinine Ratio 13, Glucose Level 96, Calcium Level 8.6 04/11/20 11:14: Coronavirus (COVID-19)(PCR) Negative, Coronavirus 2019 (SIA) Negative 04/12/20 05:27: White Blood Count 7.4, Red Blood Count 3.11, Hemoglobin 10.4, Hematocrit 30, Mean Corpuscular Volume 97, Mean Corpuscular Hemoglobin 33, Mean Corpuscular Hemoglobin Concent 34, Red Cell Distribution Width 13.9, Platelet Count 309, Mean Platelet Volume 9.2, Immature Granulocyte % (Auto) 0, Neutrophils (%) (Auto) 75, Lymphocytes (%) (Auto) 11, Monocytes (%) (Auto) 10, Eosinophils (%) (Auto) 3, Basophils (%) (Auto) 1, Neutrophils # (Auto) 5.5, Lymphocytes # (Auto) 0.8, Monocytes # (Auto) 0.7, Eosinophils # (Auto) 0.2, Basophils # (Auto) 0.1, Immature Granulocyte # (Auto) 0.0, Sodium Level 127, Potassium Level 4.9, Chloride Level 94, Carbon Dioxide Level 24, Anion Gap 9, Blood Urea Nitrogen 16, Creatinine 1.33, Estimat Glomerular Filtration Rate 52, BUN/Creatinine Ratio 12, Glucose Level 94, Calcium Level 8.5, Corrected Calcium 9.3, Total Bilirubin 1.7, Aspartate Amino Transf (AST/SGOT) 47, Alanine Aminotransferase (ALT/SGPT) 22, Alkaline Phosphatase 215, Total Protein 6.2, Albumin 3.0 04/13/20 05:20: Sodium Level 126, Potassium Level 5.1, Chloride Level 94, Carbon Dioxide Level 20, Anion Gap 12, Blood Urea Nitrogen 18, Creatinine 1.42, Estimat Glomerular Filtration Rate 48, BUN/Creatinine Ratio 13, Glucose Level 102, Calcium Level 8.9 04/13/20 10:39: Potassium Level 5.0 04/14/20 04:35: Sodium Level 127, Potassium Level 5.0, Chloride Level 94, Carbon Dioxide Level 23, Anion Gap 10, Blood Urea Nitrogen 22, Creatinine 1.56, Estimat Glomerular Filtration Rate 43, BUN/Creatinine Ratio 14, Glucose Level 101, Calcium Level 8.7 04/16/20 06:22: White Blood Count 9.3, Red Blood Count 3.17, Hemoglobin 10.7, Hematocrit 31, Fadia n Corpuscular Volume 98, Mean Corpuscular Hemoglobin 34, Mean Corpuscular Hemoglobin Concent 34, Red Cell Distribution Width 14.1, Platelet Count 325, Mean Platelet Volume 9.1, Immature Granulocyte % (Auto) 0, Neutrophils (%) (Auto) 76, Lymphocytes (%) (Auto) 10, Monocytes (%) (Auto) 9, Eosinophils (%) (Auto) 3, Basophils (%) (Auto) 1, Neutrophils # (Auto) 7.1, Lymphocytes # (Auto) 0.9, Monocytes # (Auto) 0.9, Eosinophils # (Auto) 0.3, Basophils # (Auto) 0.1, Immature Granulocyte # (Auto) 0.0, Sodium Level 128, Potassium Level 5.5, Chloride Level 94, Carbon Dioxide Level 22, Anion Gap 12, Blood Urea Nitrogen 23, Creatinine 1.64, Estimat Glomerular Filtration Rate 41, BUN/Creatinine Ratio 14, Glucose Level 107, Calcium Level 9.1, Corrected Calcium 9.8, Total Bilirubin 1.9, Aspartate Amino Transf (AST/SGOT) 37, Alanine Aminotransferase (ALT/SGPT) 21, Alkaline Phosphatase 229, Total Protein 6.8, Albumin 3.1 04/16/20 09:24: Glucometer 115 04/18/20 05:20: White Blood Count 9.9, Red Blood Count 3.17, Hemoglobin 10.6, Hematocrit 31, Mean Corpuscular Volume 98, Mean Corpuscular Hemoglobin 33, Mean Corpuscular Hemoglobin Concent 34, Red Cell Distribution Width 14.2, Platelet Count 320, Mean Platelet Volume 9.1, Sodium Level 129, Potassium Level 5.8, Chloride Level 96, Carbon Dioxide Level 21, Anion Gap 12, Blood Urea Nitrogen 24, Creatinine 1.60, Estimat Glomerular Filtration Rate 42, BUN/Creatinine Ratio 15, Glucose Level 108, Calcium Level 8.9, Corrected Calcium 9.7, Total Bilirubin 2.0, Aspartate Amino Transf (AST/SGOT) 36, Alanine Aminotransferase (ALT/SGPT) 19, Alkaline Phosphatase 213, Total Protein 6.6, Albumin 3.0 04/19/20 04:45: White Blood Count 9.4, Red Blood Count 3.08, Hemoglobin 10.3, Hematocrit 30, Mean Corpuscular Volume 98, Mean Corpuscular Hemoglobin 33, Mean Corpuscular Hemoglobin Concent 34, Red Cell Distribution Width 14.3, Platelet Count 329, Mean Platelet Volume 8.8, Immature Granulocyte % (Auto) 1, Neutrophils (%) (Auto) 77, Lymphocytes (%) (Auto) 9, Monocytes (%) (Auto) 10, Eosinophils (%) (Auto) 3, Basophils (%) (Auto) 1, Neutrophils # (Auto) 7.3, Lymphocytes # (Auto) 0.9, Monocytes # (Auto) 0.9, Eosinophils # (Auto) 0.3, Basophils # (Auto) 0.1, Immature Granulocyte # (Auto) 0.1, Sodium Level 130, Potassium Level 5.4, Chloride Level 96, Carbon Dioxide Level 23, Anion Gap 11, Blood Urea Nitrogen 24, Creatinine 1.57, Estimat Glomerular Filtration Rate 43, BUN/Creatinine Ratio 15, Glucose Level 123, Calcium Level 8.8, Corrected Calcium 9.6, Total Bilirubin 2.0, Aspartate Amino Transf (AST/SGOT) 35, Alanine Aminotransferase (ALT/SGPT) 19, Alkaline Phosphatase 201, Total Protein 6.4, Albumin 3.0 04/20/20 08:02: Sodium Level 133, Potassium Level 5.0, Chloride Level 95, Carbon Dioxide Level 25, Anion Gap 13, Blood Urea Nitrogen 23, Creatinine 1.53, Estimat Glomerular Filtration Rate 44, BUN/Creatinine Ratio 15, Glucose Level 124, Calcium Level 9.0 04/20/20 10:31: Coronavirus 2019 (SIA) Negative Discharge Home Medications: Active Scripts Active Sodium Chloride 1 Gm Tab 1 Gm PO BID 30 Days Isosorbide Mononitrate ER (Isosorbide Mononitrate) 60 Mg Tab 60 Mg PO DAILY 30 Days Metoclopramide HCl 5 Mg Tablet 5 Mg PO QID PRN 30 Days Reported [Folic Acid] 1 Mg PO DAILY Vitamin B-1 (Thiamine HCl) 100 Mg Tablet 100 Mg PO DAILY Potassium Chloride 20 Meq Tab.er.prt 10 Meq PO SUN,,FR TAKES OF A 20NEQ TAB Furosemide 40 Mg Tablet 20 Mg PO MO,WE,FR Magnesium (Magnesium Oxide) 400 Mg Tablet 400 Mg PO DAILY Atorvastatin Calcium 40 Mg Tablet 40 Mg PO Q48H Famotidine 20 Mg Tablet 20 Mg PO BID Ranolazine ER (Ranolazine) 1,000 Mg Tab.er.12h 1,000 Mg PO BID Metoprolol Tartrate 50 Mg Tablet 50 Mg PO BID Fish Oil 1,000 mg Capsule ([place] 3 Polyunsat Fatty Acids) 1,000 Mg Cap 1,000 Mg PO BID Aspirin EC (Aspirin) 81 Mg Tablet.dr 81 Mg PO HS Acetaminophen Extra Strength (Acetaminophen) 500 Mg Tablet 1,000 Mg PO 0300 PRN Plavix (Clopidogrel Bisulfate) 75 Mg Tablet 75 Mg PO DAILY Centrum Men's Tablet (Multivits,Ca,Min/Iron/FA/Lycop) 1 Each Tablet 1 Tab PO DAILY Instructions to patient/family Please see electronic discharge instructions given to patient. Diagnosis/Problems Diagnosis/Problems (1) Debility (2) Acute on chronic kidney failure (3) Alcohol dependence, daily use Status: Acute (4) HTN (hypertension) Status: Acute (5) CAD (coronary artery disease) (6) Hypokalemia (7) Status post fall Status: Acute (8) STEMI (ST elevation myocardial infarction) Status: Acute (9) Hypomagnesemia (10) Multifocal PVCs Status: Acute (11) PAD (peripheral artery disease) (12) Weakness Status: Acute (13) Renal insufficiency Status: Acute (14) CHF (congestive heart failure) Status: Acute Clinical Quality Measures DVT/VTE Risk/Contraindication: Risk Factor Score Per Nursin RFS Level Per Nursing on Admit: 4+=Very High CODI HERCULES DO Apr 20, 2020 08:30
--- NOTE | 2020-04-20 08:49 | Cardiology Progress Note ---
Subjective Date Seen by Provider: Apr 20, 2020 Time Seen by Provider: 08:15 Subjective/Events-last exam patient is laying in recliner, denies any chest pain or palpitations, no complaints. Objective-Cardiology Exam Last Set of Vital Signs Vital Signs 04/20/20 05:02 Temp 36.9 Pulse 90 Resp 20 B/P (MAP) 125/68 (87) Pulse Ox 93 O2 Delivery Room Air Capillary Refill : Less Than 3 Seconds I&O Intake and Output 04/20/20 00:00 Intake Total 1060 ml Output Total 1325 ml Balance -265 ml Intake Oral 1060 ml Output Urine Total 1325 ml # Bowel Movements 1 General: Alert, Oriented X3, Cooperative HEENT: Atraumatic, PERRLA Neck: Supple, No JVD, No Thyromegaly Lungs: Clear to Auscultation, Normal Air Movement Heart: Regular Rate, Normal S1, Normal S2, No Murmurs Abdomen: Normal Bowel Sounds, Soft, No Tenderness, No Hepatosplenomegaly, No Masses Extremities: No Clubbing, No Cyanosis, Other (+1 pedal edema) Skin: No Rashes, No Significant Lesion Neuro: Normal Speech, Cranial Nerves 3-12 NL Psych/Mental Status: Mental Status NL, Mood NL Results Lab Laboratory Tests 04/20/20 08:02 A/P-Cardiology Admission Diagnosis Generalized weakness CHF CAD Acute on chronic renal insufficiency Assessment/Plan Generalized weakness, debility, receiving physical therapy. Hyperkalemia, received Kayexalate yesterday, continue to monitor. Acute on chronic renal insufficiency probably worsening volume depletion with the nausea and vomiting. I will repeat metabolic profile in the morning Dysphagia, nausea and vomiting with weight loss, status post endoscopy. Had gastroparesis and esophageal stricture, had balloon dilatation done. Managed by primary care team Chronic systolic and diastolic CHF. Echo of 02/19/20: LVEF 40-45%, dilated LA, mod to sev MR, AoV scl w/o stenosis, mod TR, PASP 35-40 mmHg. Echo of 03/18/20: LVEF 25-30%. Last echo 04/08/20: LVEF 30-35%, apical and anteroseptal akinesis, mod MR, mod TR, RVSP 26 mmHg - Life Vest in place Coronary artery disease with a history CABG with HUBBARD to LAD, saphenous VG to RCA, VG to diagonal artery, VG to first obtuse marginal artery, VG to second obt use marginal artery in 1999. Mutiple subsequent PCIs. H/o RCA-SVG perforation on 11/28/18 at time of intervention for SVG occlusion by Dr Miranda. Last card cath on 11/29/18 (Dr Smith at [facility]): 40-50% LMCA, occluded LAD, patent LCX with occluded OMs, occluded RCA, patent HUBBARD-LAD, patent SVG-om, Patent SVG-RCA with patent distal stent (known to be Alp Xience 2.25x8 placed on 08/28/17). Maintained on ASA and Plavix Borderline hypotension, better after decreasing beta blockers. Continue to monitor Hyperlipidemia being treated with statin therapy, continue to monitor. Diabetes mellitus, type II. Managed by primary care team Tobaccoism consisting of smoking cigars. Advised smoking cessation Carotid arterial disease, mild, per ultrasonography of June 2017, continue to monitor as outpatient. Patient was seen and evaluated with Niyah, examination performed, management plan was discussed, agree with the current scribed note, I made few changes to the note using Italic font, repeat potassium showed improvement. Continue to monitor Okay for discharge from cardiology standpoint Clinical Quality Measures DVT/VTE Risk/Contraindication: Risk Factor Score Per Nursin RFS Level Per Nursing on Admit: 4+=Very High NIYAH HOOPER Apr 20, 2020 8:49 am HANS MIRANDA MD Apr 20, 2020 9:17 am
[2020-04-20] MEDS: FAMOTIDINE 20 MG (PEPCID) TABLET PO SCH (09:00)
[2020-04-20 09:08] LABS: CREATININE SERUM 1.53 MG/DL (0.60-1.30)
--- NOTE | 2020-04-20 09:20 | Therapy Team Discharge Summary ---
Therapy Discharge Summary Discharge Recommendations Date of Discharge Physical Therapy Patient came to rehab with debility. Upon evaluation patient performed bed mobility with mod assist, supine <-> sit and sit <-> stand with max assist, transfers min assist, ambulated 15' with a rolling walker with min assist, and propelled a manual WC 50' with SBA. Patient has been performing bed mobility and transfer training, balance and endurance training, functional strengthening, stair training, gait training, and education. Patient has made some progress but has only met his retirement goal for bed mobility. Now, patient performs bed mobility with independence, supine <-> sit with min assist, sit <-> stand mod assist, transfers min assist, car transfer SBA, can ambulate 30' with a rolling walker with CGA (including 10' over an uneven surface), and can propel a manual WC 150' with min assist. Patient is discharging from this facility today and will be discharged from PT at this time. Occupational Therapy Decreased Activ Tolerance, Decreased UE Strength, Dependent Transfers, Impaired Funct Balance, Impaired I ADL's, Impaired Self-Care Skills PT Net Making Supervisor Goals Net Making Supervisor Goals PT Net Making Supervisor Goals Time Frame: Apr 28, 2020 Roll Left to Right (QC): 6 Sit to Lying (QC): 6 Lying-Sitting on Side/Bed(QC): 6 Sit to Stand (QC): 6 Chair/Wgm-wq-Hkhhb Xfer(QC): 6 Car Transfer (QC): 5 Does the Patient Walk: Yes Walk 10 feet (QC): 6 Walk 10ft-Uneven Surface(QC): 5 Walk 50ft with 2 Turns (QC): 6 Walk 150 ft (QC): 6 Wheel 50 feet with 2 turns (QC: 6 1 Step (curb) (QC): 5 4 Steps (QC): 4 12 Steps (QC): 10 Picking up an Object (QC): 3 OT Net Making Supervisor Goals Halfway Goals Time Frame: Apr 28, 2020 Eating (QC): 6 (met) Oral Hygiene (QC): 6 (met) Shower/Bathe Self (QC): 6 (not me) Upper Body Dressing (QC): 6 (not met) Lower Body Dressing (QC): 6 (not met) On/Off Footwear (QC): 6 (not met) Toileting Hygiene (QC): 6 (not met) Toilet/Commode Transfer (QC): 6 Additional Goals: 1-Demonstrate ADL Tasks, 2-Verbalize Understanding, 3- ImproveStrength/Davina 1=Demonstrate adherence to instructed precautions during ADL tasks. 2=Patient will verbalize/demonstrate understanding of assistive devices/modifications for ADL. 3=Patient will improve strength/tolerance for activity to enable patient to perform ADL's. RAFFAELE SANTOS PT Apr 20, 2020 09:20
--- NOTE | 2020-04-20 10:58 | NUR ---
CM/SS DISCHARGE Patient discharged to new Medicare skilled placement with [facility] via their transport this a.m. Patient's last Covid screen was 04/11/20 (negative) and when Unit RN called report [facility] RN requested another screen. Rapid test was initiated and transport has been held until results are final. Patient verbalized his understanding he is going to [facility] today for skilled services with the goal of returning home in the near future if able. As emphasized, he will need to be able to stand pivot for his family to care for him at the house, unless alva lift is used. Updated spouse Keira this a.m. of timeline for pickup, she is more settled with this care plan. She continues to attempt to make arrangements at their home for patient to return there, whether it be family members and/or private pay caregivers to be available to assist patient. IMM2 was reviewed timely, signed, charted. Faxed orders and instructions to [facility], prepared continuum of care packet to accompany patient. CARE Assessment remains waived at this time and was not completed. Unit RN aware of all arrangements. Addendum: 04/20/20 at 1246 by ARTURO SCOTT Patient's spouse had [facility] send over Application for Permanent Advance Voting Status. Reviewed with patient, he signed, sql report writer faxed to as requested. Updated spouse, she declined copy sent to her.
[2020-04-20 11:10] VITALS: BP 125/68
--- NOTE | 2020-04-20 11:10 | NUR ---
DANTE ODONNELL demonstrates understanding of discharge instructions and accurately returns instructions upon questioning. Copy of Post-Discharge Instructions given to . SEVERO BELL is able to manage continuing needs after discharge. Patients belongings returned to PT. Patient discharged from 227-1 on 04/20/20 at 1110. SEVERO BELL left floor via W/C, accompanied by STAFF.
--- NOTE | 2020-04-21 08:06 | Therapy Team Discharge Summary ---
Therapy Discharge Summary Discharge Recommendations Date of Discharge Apr 20, 2020 at 11:10 Occupational Therapy Pt admits from home with dx of debility. Pt requires mod A for showering, min A shirt doff/ donning, toilet hygiene with max A and decreased balance/ strength, pt fatigues with minimal stepping. Pt and OT team work towards higher fx IND through ADLs, fx activity tolerance training, safety training, energy conservation, balance/ coordination work, w/c mobility. Pt d/c's home with post- OT and bath aide recommended, with a variability in ability during ADLs day to day due to fatigue. Pt averages a score of mod A transfers, min A bathing, mod A UB/ LB dressing. Pt d/c OT at this time. Decreased Activ Tolerance, Decreased UE Strength, Dependent Transfers, Impaired Funct Balance, Impaired I ADL's, Impaired Self-Care Skills PT Spectrographer Goals Fpc Goals PT Fpc Goals Time Frame: Apr 28, 2020 Roll Left to Right (QC): 6 Sit to Lying (QC): 6 Lying-Sitting on Side/Bed(QC): 6 Sit to Stand (QC): 6 Chair/Wyw-kv-Ttpul Xfer(QC): 6 Car Transfer (QC): 5 Does the Patient Walk: Yes Walk 10 feet (QC): 6 Walk 10ft-Uneven Surface(QC): 5 Walk 50ft with 2 Turns (QC): 6 Walk 150 ft (QC): 6 Wheel 50 feet with 2 turns (QC: 6 1 Step (curb) (QC): 5 4 Steps (QC): 4 12 Steps (QC): 10 Picking up an Object (QC): 3 OT Fpc Goals Spectrographer Goals Time Frame: Apr 28, 2020 Eating (QC): 6 (met) Oral Hygiene (QC): 6 (met) Shower/Bathe Self (QC): 6 (not me) Upper Body Dressing (QC): 6 (not met) Lower Body Dressing (QC): 6 (not met) On/Off Footwear (QC): 6 (not met) Toileting Hygiene (QC): 6 (not met) Toilet/Commode Transfer (QC): 6 Additional Goals: 1-Demonstrate ADL Tasks, 2-Verbalize Understanding, 3-ImproveStrength/Davina 1=Demonstrate adherence to instructed precautions during ADL tasks. 2=Patient will verbalize/demonstrate understanding of assistive devices/modifications for ADL. 3=Patient will improve strength/tolerance for activity to enable patient to perform ADL's. SALOME MARIN OTR Apr 21, 2020 08:06
== END 2020-04-20 11:10 | DRG 92 ==
PROVIDERS: ADMIT Internal Medicine; ATTEND Internal Medicine
DX: G72.89 Other specified myopathies (principal); I13.0 Hypertensive heart and chronic kidney disease with heart failure and stage 1 through stage 4 chronic kidney disease, or unspecified chronic kidney disease; I50.42 Chronic combined systolic (congestive) and diastolic (congestive) heart failure; I25.719 Atherosclerosis of autologous vein coronary artery bypass graft(s) with unspecified angina pectoris; E87.1 Hypo-osmolality and hyponatremia; N17.9 Acute kidney failure, unspecified; N18.30 Chronic kidney disease, stage 3 unspecified; I25.5 Ischemic cardiomyopathy; Z20.828 Contact with and (suspected) exposure to other viral communicable diseases; I25.118 Atherosclerotic heart disease of native coronary artery with other forms of angina pectoris; I08.3 Combined rheumatic disorders of mitral, aortic and tricuspid valves; E11.22 Type 2 diabetes mellitus with diabetic chronic kidney disease; R11.2 Nausea with vomiting, unspecified; R13.10 Dysphagia, unspecified; E78.5 Hyperlipidemia, unspecified; E78.00 Pure hypercholesterolemia, unspecified; E87.5 Hyperkalemia; R63.4 Abnormal weight loss; J44.9 Chronic obstructive pulmonary disease, unspecified; K21.00 Gastro-esophageal reflux disease with esophagitis, without bleeding; K22.2 Esophageal obstruction; E11.43 Type 2 diabetes mellitus with diabetic autonomic (poly)neuropathy; K31.84 Gastroparesis; K44.9 Diaphragmatic hernia without obstruction or gangrene; R09.02 Hypoxemia; F17.210 Nicotine dependence, cigarettes, uncomplicated; F10.20 Alcohol dependence, uncomplicated; I25.2 Old myocardial infarction; Z79.82 Long term (current) use of aspirin; Z68.24 Body mass index [BMI] 24.0-24.9, adult; Z95.1 Presence of aortocoronary bypass graft; Z95.5 Presence of coronary angioplasty implant and graft; Z90.49 Acquired absence of other specified parts of digestive tract; T50.2X5A Adverse effect of carbonic-anhydrase inhibitors, benzothiadiazides and other diuretics, initial encounter
CPT/HCPCS: 36415; 80048; 80053; 81000; 82962; 83880; 84132; 84300; 85025; 85027; 86850; 86900; 86901; 87081; 87088; 87635; 93306; 94664

== ENCOUNTER 2020-04-12 12:33 | Day surgery (SDC) | payer MEDICARE ==
[~2020-04-12 12:33] MED LIST changes: -ACETAMINOPHEN 325 MG TABLET PO PRN; -ALPRAZolam 0.25 MG (XANAX) TAB PO PRN; -BISACODYL 10 MG SUPP (DULCOLAX) PR PRN; -CALCIUM CARBONATE 500 MG (TUMS) TAB.CHEW PO PRN; -DOCUSATE SODIUM 100 MG (COLACE) CAP PO PRN; -FLEET ENEMA ADULT 1 EA BTL PR PRN; +FOLIC ACID PO; -LACTULOSE SYRUP 10GM/15ML (ENULOSE) 30ML UDC PO PRN; -LOPERAMIDE 2 MG (IMODIUM) TABLET PO PRN; +METO5TAB2 PO; -ONDANSETRON 4 MG (ZOFRAN) ORAL DISSOLVE TAB PO PRN; +POTA20TA15 PO; -diphenhydrAMINE 25 MG TAB (BENADRYL) PO PRN; -guaiFENesin/CODEINE (ROBITUSSIN AC) 10ML UDC PO PRN
[2020-04-12] MEDS ORDERED: LACTATED RINGERS 1,000 ML IV PRN (13:12)
[2020-04-12 13:35] VITALS: BP 116/61
[2020-04-12 13:40] VITALS: BP 112/60
[2020-04-12] MEDS ORDERED: HURRICAINE EXT TUBE (BENZOCAINE) XX ONE (13:45)
--- NOTE | 2020-04-12 13:55 | Anesthesia-General Post-Op ---
MAC Patient Condition Mental Status/LOC: Same as Preop Cardiovascular: Satisfactory Nausea/Vomiting: Absent Respiratory: Satisfactory Pain: Controlled Complications: Absent Post Op Complications Complications None Follow Up Care/Instructions Patient Instructions None needed. Anesthesiology Discharge Order Discharge Order Patient is doing well, no complaints, stable vital signs, no apparent adverse anesthesia problems. No complications reported per nursing. FRANCIS PERSAUD CRNA Apr 12, 2020 13:55
--- NOTE | 2020-04-12 23:30 | OPERATIVE REPORT ---
DATE OF SERVICE: 04/12/2020 ATTENDING PRIMARY CARE PHYSICIAN: Dr. Adan Wright. ADMITTING PHYSICIAN: Dr. Perez. PREOPERATIVE DIAGNOSES: Dysphagia, regurgitation, weight loss. POSTOPERATIVE DIAGNOSES: Reflux esophagitis between stage II and III with a mild distal esophageal stricture, small hiatal hernia 2 cm in size, retained food substance within the stomach, likely indicating gastroparesis. Moderate gastritis. No distal obstructions. PROCEDURE: EGD with biopsy and balloon dilatation. SURGEON: Kaden Scott MD. ANESTHESIA: Monitored anesthesia care. ESTIMATED BLOOD LOSS: Minimal. FINDINGS: Reflux esophagitis between stage II and III with a mild distal esophageal stricture, small hiatal hernia 2 cm in size, retained food substance within the stomach, likely indicating gastroparesis. Moderate gastritis. No distal obstructions. DISPOSITION: The patient tolerated the procedure well. INDICATIONS: The patient is a 79-year-old male who we had seen in the office for dysphagia and weight loss as well as weakness. He states that he has had a history of gastroesophageal reflux disease as well as peptic ulcer disease; however, he is a poor historian as well. He reports that he has steadily lost weight and that due to this issue with dysphagia and weakness and was recently admitted to inpatient rehabilitation. DESCRIPTION OF PROCEDURE: The patient was brought to the endoscopy suite, laid in the left lateral decubitus position. After adequate IV pain and sedated medications and monitored anesthesia care, the mouthpiece was applied. The endoscope was placed in the mouth, visualizing the pharynx and hypopharyngeal region. Vocal cords, epiglottis and vallecula identified and appeared to be normal. The endoscope was then gently intubated to the esophageal opening and esophagus insufflated. The endoscope was then advanced to the first, second and third portion of esophagus at the level of GE junction, a significant reflux esophagitis between stage II and III identified. There was also what appeared to be a mild distal esophageal stricture. A biopsy was taken with forceps until visualization of good hemostasis. The endoscope was then advanced into the stomach and the endoscope retroflexed, visualizing a small hiatal hernia approximately 2 cm in size. The most significant finding was retained food substance within the stomach even after being almost 24 hours n.p.o., likely indicating a gastroparesis. There was a moderate gastritis. A biopsy was taken of the antrum to rule out H. pylori with visualization of good hemostasis. The endoscope was then advanced to the pylorus and the first and second portion of the duodenum, which appeared normal with no distal obstructions. We then proceeded with esophageal dilatation and the balloon was placed in the stomach and pulled back to the area of the stricture. We first proceeded to 2 and then 4 atmospheres of pressure and then eventually 6 atmospheres of pressure with mild resistance and left this in place for approximately 60 seconds. The balloon was then desufflated and removed with visualization of good hemostasis as well and no mucosal tears. The endoscope was then slowly withdrawn while taking a second look and suctioning of residual air with no additional findings. The patient tolerated the procedure well. We feel that he may have had a mild distal esophageal stricture and the dilatation may help; however, likely due to his age and medical comorbidities, he does have some level of gastroparesis and delayed food to transit the stomach into the small bowel. We will start with a trial of Reglan 5 mg q.i.d. scheduled. Job ID: [id number] DocumentID: [id number] Dictated Date: 04/12/2020 13:39:56 Assistant Engineer Date: 04/12/2020 23:29:33 Dictated By: KADEN SCOTT MD MTDD
[2020-04-20] MEDS ORDERED: ISM60TCR PO (05:33)
[2020-04-20] MEDS ORDERED: NF-NACL1GT PO (05:33)
[2020-04-20] MEDS ORDERED: METO5TAB2 PO (05:33)
== END 2020-04-12 13:40 | disposition still patient (30) ==
LOC: ENDO 12:33
PROVIDERS: ATTEND Surgery
DX: K21.00 Gastro-esophageal reflux disease with esophagitis, without bleeding (principal); K29.50 Unspecified chronic gastritis without bleeding; K22.2 Esophageal obstruction; K44.9 Diaphragmatic hernia without obstruction or gangrene; T18.2XXA Foreign body in stomach, initial encounter; I10 Essential (primary) hypertension; I25.10 Atherosclerotic heart disease of native coronary artery without angina pectoris; E78.00 Pure hypercholesterolemia, unspecified; R63.4 Abnormal weight loss; E11.36 Type 2 diabetes mellitus with diabetic cataract; I25.2 Old myocardial infarction; F17.210 Nicotine dependence, cigarettes, uncomplicated; Z79.82 Long term (current) use of aspirin; Z79.899 Other long term (current) drug therapy; Z88.0 Allergy status to penicillin; Z88.8 Allergy status to other drugs, medicaments and biological substances; Z90.49 Acquired absence of other specified parts of digestive tract; Z87.11 Personal history of peptic ulcer disease
CPT/HCPCS: 88305